=== PATIENT | female | born 1945 | race Caucasian/White ===

== ENCOUNTER 2023-06-02 12:40 | Observation (INO) | payer MEDICARE, SELFPAY ==
[2023-06-02 12:43] VITALS: BP 162/90; PULSE 87; RESP 18; TEMP 36.6; O2SAT 98; BMI 29.2
--- NOTE | 2023-06-02 13:09 | CT_ITS ---
The [address] [address] Patient Name: RIANA QUILES MRN: [id number] date: 1945 Sex: F Assigned Patient Location: ER Current Patient Location: Accession/Order Number: [id number] Exam Date: 06/02/2023 13:54 Report Date: 06/02/2023 14:24 At the request of: FOSTER HEART Procedure: CT abdomen pelvis w con EXAM: CT scan of the abdomen and pelvis using 99 mL of IV iodinated contrast. Dose reduction technique used: Automated exposure control and/or adjustment of the mA and/or kV according to patient size and/or use of iterative reconstruction technique. REASON FOR EXAM: abdominal applying pain/partial colectomy COMPARISON: None FINDINGS: Right hemicolectomy. Dilated loops of small bowel throughout the abdomen with an abrupt transition point in the lateral lower right abdomen with fecalization of this loop of small bowel. Mild associated mesenteric edema. Prominently decompressed distal small bowel. No pneumatosis intestinalis. Distal esophageal wall thickening. Tiny splenic hemangioma or cyst. Multilevel bilateral renal cysts including parapelvic renal cysts. Grade 1 retrolisthesis of L2 on L3 and L3-L4. No free fluid in the abdomen or pelvis. No free intraperitoneal air. No hydronephrosis or obstructing renal or ureteral calculi. Liver, pancreas, spleen, bilateral kidneys, and bilateral adrenal glands are otherwise unremarkable. No lymphadenopathy in the abdomen or pelvis. Remainder unremarkable. CT/CT abdomen pelvis w con IMPRESSION: 1. Dilated loops of small bowel with pattern that likely represents a mechanical obstruction with transition point in the right lateral abdomen. 2. Esophageal wall thickening likely represent esophagitis. Electronically authenticated by: KOREY GAMEZ Date: 06/02/2023 14:24
--- NOTE | 2023-06-02 13:11 | ED.ABDPAIN1 ---
HPI - Abdominal Pain General Chief Complaint: Abdominal Pain Stated Complaint: R SIDE PAIN/NAUSEA Time Seen by Provider: 06/02/23 13:05 Source: patient Mode of arrival: walk-in History of Present Illness HPI narrative: patient has diffuse abdominal pain but mostly localized on the right side and abdomen. She has an extensive midline incision close consistent with a partial colectomy from colon cancer over thirty years ago. She states that she had a colonoscopy recently and it was normal. She's not had a bowel movement for a couple days. She is on new meds for Parkinson's disease. Related Data Home Medications Medication Instructions Recorded Confirmed carbidopa 25 mg-levodopa 100 mg tab 06/02/23 tablet ferrous sulfate 325 mg (65 mg mg 06/02/23 iron) tablet hydrochlorothiazide 12.5 mg tablet mg 06/02/23 losartan 50 mg tablet mg 06/02/23 Allergies Allergy/AdvReac Type Severity Reaction Status Date / Time No Known Drug Allergies Allergy Verified 06/02/23 12:51 Exam Narrative Exam Narrative: patient very pleasant awake oriented ?3 appears moderately uncomfortable but is moving about easily. In a supine position belly slightly distended. There is no peritoneal findings but definitely increased tympany to percussion and very high-pitched bowel sounds on auscultation area and mild tenderness in the right upper quadrant. Large midline incision is noted with no obvious herniation. Cardiovascular examination is normal lungs are clear and heart sounds are regular. Skin and integument is normal with no evidence of pallor or hypoperfusion. Neurological examination she is awake alert oriented ?3 and a good historian. Constitutional Vital Signs, click to edit/add: Last Vital Signs Temp 98 F 06/02/23 12:43 Pulse 87 06/02/23 12:43 Resp 18 06/02/23 12:43 BP 162/90 H 06/02/23 12:43 Pulse Ox 98 06/02/23 12:43 O2 Del Method Room Air 06/02/23 12:43 Course Vital Signs Vital signs: Vital Signs Temperature 98 F 06/02/23 12:43 Pulse Rate 87 06/02/23 12:43 Respiratory Rate 18 06/02/23 12:43 Blood Pressure 162/90 H 06/02/23 12:43 Pulse Oximetry 98 06/02/23 12:43 Oxygen Delivery Method Room Air 06/02/23 12:43 Temperature 98 F 06/02/23 12:43 Pulse Rate 87 06/02/23 12:43 Respiratory Rate 18 06/02/23 12:43 Blood Pressure 162/90 H 06/02/23 12:43 Pulse Oximetry 98 06/02/23 12:43 Oxygen Delivery Method Room Air 06/02/23 12:43 MDM - Abdominal Pain MDM Narrative Medical decision making narrative: patient's CT scan is consistent with a mechanical obstruction. The case was discussed in detail with on-call surgeon Dr. Vasquez. Case also discussed with our hospitalist. Will be admitted. Dr. Bush's request NG tube Lab Data Labs: Lab Results 06/02/23 Range/Units 13:13 WBC 11.5 H (4.0-11.0) 10^3/uL RBC 4.49 (4.20-5.40) 10^6/uL Hgb 11.8 L (12.0-16.0) g/dL Hct 37.4 (36.0-48.0) % MCV 83.3 (81.0-99.0) fL MCH 26.3 L (26.7-34.0) pg MCHC 31.6 (29.9-35.2) g/dL RDW 12.9 (11.0-15.0) % Plt Count 247 (150-450) 10^3/uL MPV 9.5 (9.5-13.5) fL Neut % (Auto) 85.5 H (43.0-75.0) % Lymph % (Auto) 9.4 L (20.5-60.0) % [place] % (Auto) 4.5 (1.7-12.0) % Eos % (Auto) 0.2 L (0.9-7.0) % Baso % (Auto) 0.1 L (0.2-2.0) % Neut # (Auto) 9.8 H (1.4-6.5) 10^3/uL Lymph # (Auto) 1.1 L (1.2-3.8) 10^3/uL [place] # (Auto) 0.5 (0.3-0.8) 10^3/uL Eos # (Auto) 0.0 (0.0-0.7) 10^3/uL Baso # (Auto) 0.0 (0.0-0.1) 10^3/uL Abs Immat Gran (auto) 0.04 H (0.00-0.03) 10^3/uL Imm/Tot Granulo (auto) 0.3 (0.0-0.5) % Sodium 140 (136-145) mmol/L Potassium 3.4 L (3.5-5.1) mmol/L Chloride 99 (98-107) mmol/L Carbon Dioxide 28.6 (21.0-32.0) mmol/L Anion Gap 15.8 BUN 25.0 H (7.0-18.0) mg/dL Creatinine 1.13 H (0.55-1.02) mg/dL Est GFR ( Amer) 57 L (>=60) Est GFR (Non-Af Amer) 47 L (>=60) BUN/Creatinine Ratio 22.1 Glucose 124 H (74-106) mg/dL Lactate 1.1 (0.4-2.0) mmol/L Calcium 9.6 (8.5-10.1) mg/dL Total Bilirubin 0.8 (0.2-1.0) mg/dL AST 12 L (15-37) U/L ALT 14 (14-59) U/L Alkaline Phosphatase 90 (46-116) U/L Total Protein 7.9 (6.4-8.2) g/dL Albumin 3.5 (3.4-5.0) g/dL Globulin 4.4 g/dL Albumin/Globulin Ratio 0.8 Discharge Plan Discharge Chief Complaint: Abdominal Pain Clinical Impression: Bowel obstruction Patient Disposition: Admitted as Observation Time of Disposition Decision: 14:41 Prescriptions / Home Meds: No Action losartan 50 mg tablet ferrous sulfate 325 mg (65 mg iron) tablet carbidopa-levodopa 25-100 mg tablet hydrochlorothiazide 12.5 mg tablet Referrals: Rosita Schaffer NP [Primary Care Provider] - 1 week
[2023-06-02 13:26] LABS: Basophils Percent Auto 0.1 % (0.2-2.0); Eosinophils Percent Auto 0.2 % (0.9-7.0); Hematocrit 37.4 % (36.0-48.0); Hemoglobin 11.8 g/dL (12.0-16.0); Immature Granulocytes Abs Auto 0.04 10^3/uL (0.00-0.03); Immature Granulocytes Pct Auto 0.3 % (0.0-0.5); Lymphocytes Absolute Auto 1.1 10^3/uL (1.2-3.8); Lymphocytes Percent Auto 9.4 % (20.5-60.0); Mean Corpuscular HGB Conc 31.6 g/dL (29.9-35.2); Mean Corpuscular Hemoglobin 26.3 pg (26.7-34.0); Mean Corpuscular Volume 83.3 fL (81.0-99.0); Mean Platelet Volume 9.5 fL (9.5-13.5); Monocytes Absolute Auto 0.5 10^3/uL (0.3-0.8); Monocytes Percent Auto 4.5 % (1.7-12.0); Neutrophils Absolute Auto 9.8 10^3/uL (1.4-6.5); Neutrophils Percent Auto 85.5 % (43.0-75.0); Platelet Count 247 10^3/uL (150-450); Red Blood Count 4.49 10^6/uL (4.20-5.40); Red Cell Distribution Width 12.9 % (11.0-15.0); White Blood Count 11.5 10^3/uL (4.0-11.0)
[2023-06-02 13:43] LABS: Alanine Aminotransferase 14 U/L (14-59); Albumin Globulin Ratio 0.8; Albumin Level 3.5 g/dL (3.4-5.0); Alkaline Phosphatase 90 U/L (46-116); Anion Gap 15.8; Aspartate Amino Transferase 12 U/L (15-37); BUN Creatinine Ratio 22.1; Bilirubin Total 0.8 mg/dL (0.2-1.0); Calcium 9.6 mg/dL (8.5-10.1); Carbon Dioxide 28.6 mmol/L (21.0-32.0); Chloride 99 mmol/L (98-107); Estimated GFR (African America 57 (>=60); Estimated GFR (Non-African Ame 47 (>=60); Globulin 4.4 g/dL; Glucose 124 mg/dL (74-106); Potassium 3.4 mmol/L (3.5-5.1); Sodium 140 mmol/L (136-145); Total Protein 7.9 g/dL (6.4-8.2)
[2023-06-02 13:50] LABS: Lactate/Lactic Acid 1.1 mmol/L (0.4-2.0)
[2023-06-02 14:40] LABS: Bilirubin Urine SMALL (NEGATIVE); Blood Urine NEGATIVE (NEGATIVE); Clarity Urine CLEAR (CLEAR); Color Urine YELLOW (YELLOW); Glucose Urine UA NEGATIVE (NEGATIVE); Ketones Urine 40 mg/dL (NEGATIVE); Leukocyte Esterase Urine NEGATIVE (NEGATIVE); Nitrite Urine NEGATIVE (NEGATIVE); Protein Urine TRACE mg/dL (NEG/TRACE); Specific Gravity Urine 1.025 (1.005-1.025)
[2023-06-02 14:48] LABS: Urine Microscopic Indicated NO
--- NOTE | 2023-06-02 15:20 | XR_ITS ---
The [address] [address] Patient Name: RIANA QUILES MRN: [id number] date: 1945 Sex: F Assigned Patient Location: ER Current Patient Location: [place] Accession/Order Number: [id number] Exam Date: 06/02/2023 15:22 Report Date: 06/02/2023 15:50 At the request of: FOSTER HEART Procedure: XR abdomen 1V EXAM: XR abdomen 1V HISTORY: NG tube placement. COMPARISON: CT abdomen and pelvis 06/02/2023. TECHNIQUE: One view was performed. FINDINGS: There is an NG tube with the tip in the body of the stomach. The side-port is just above the gastroesophageal junction. There are several mildly dilated small bowel loops as described on the CT report. There is some residual contrast material within the renal collecting systems and bladder. There are mild to moderate degenerative changes of the lumbar spine. XR/XR abdomen 1V IMPRESSION: 1. NG tube with the tip in the body of the stomach and side port above the gastroesophageal junction. Recommend distal advancement by approximately 2 to 3 cm. 2. Dilated small bowel loops as described on the concurrent CT report. Electronically authenticated by: CARMEL BURNS Date: 06/02/2023 15:50
--- NOTE | 2023-06-02 16:59 | CM.NOTE ---
Call received from ZABRINA Eisenberg on med-surg, pt wanting to sign out AMA. Talked with pt regarding her decision to sign out AMA. Pt has a sister(Merry) at home with Parkinson's that is unable to care for herself. Pt states she contacted Adult Protective Services and they were unable to assist her. Pt also called her other sister that has refused to assist her. Pt would like to get Merry placed in a half-way until she can get herself well. Talked with Katia at [facility], no beds available. Called [facility] and they would be able to take her sister in respite care for an out of pocket expense. Pt is willing to pay out of pocket for the stay. They would not be able to take her tonight d/t need of her medical records released from physician's office. Discussed with pt about having the police go out to her house for a well check for Merry and then she could take care of everything else by telephone in AM. Pt states Merry can not be alone all night. I have to leave to care for her. Discussed with pt about her need of medical attention and caring for herself so that she will be there to care for her sister. Pt states I can go home tonight to stay with her, get her into half-way in the morning. Ill come back to the ER when I get her taken care of. Pt given Sary's number at [facility] and steps she need to complete in AM to get pt into the [facility]. All information written down for patient and also given Case Management contact number if further assistance needed. Discussed with pt risks of leaving AMA with her condition. Pt verbalizes understanding. Dr. Goff and Sary Loveire also aware of situation and pt continues to insist on leaving AMA.
--- NOTE | 2023-06-02 17:26 | PC.NURSE ---
Upon entering the patient room when she arrived the the ER, the patient asked if she was going to be staying overnight. Bindery Manager told the patient she was admitted and will be staying overnight. Patient told abstract writer that she could not stay over because her sister that she lives with and takes care of has Parkinson's.. 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 Patient stated that she wanted to leave. Bindery Manager had patient call a family member to see if she could help tonight. Patient states that the person she called refused to help. Bindery Manager let the patient know that she is very sick and should be here to get the care she needs. Write also made patient aware of potential worsening symptoms and even . Patient stated she understood and still wanted to leave to take care of her sister. Bindery Manager called Dr. Goff to make him aware of the situation. Dr. Goff stated that she is very sick and should stay here but we cannot keep her against her choice and to make her aware of the risks of signing out AMA. Tiik from Case Management came and talked to patient. Tiki made phone calls to different resources to try to find someone to take in her sister so the patient could stay but there was no one that could help tonight. Patient was given phone numbers of resources to call tomorrow morning. Bindery Manager again told patient the risks of leaving, symptoms worsening, and potential . Bindery Manager told patient to call 911 or come back to the ER if worsening. Patient voiced understanding. Bindery Manager signed the AMA form and abstract writer removed the NG tube and IV from the patient.
--- NOTE | 2023-06-03 11:11 | P.GSCN_ITS ---
History of Present Illness Consult details Consult date: 06/03/23 Reason for consult: abdominal pain Requesting physician: Jluis Long Narrative: I went to visit this patient and I was told by nursing that she checked out against medical advice. Review of Systems ROS Status of ROS 10 or more systems reviewed and unremark able except as noted in history and below Meds Home Medications and Allergies Home Medications Medication Instructions Recorded Confirmed Type carbidopa 25 mg-levodopa 100 mg 0.5 tab PO TID 06/02/23 06/02/23 History tablet carvedilol 12.5 mg tablet 12.5 mg PO BID 06/02/23 06/02/23 History ferrous sulfate 325 mg (65 mg 325 mg PO QDAY 06/02/23 06/02/23 History iron) tablet hydrochlorothiazide 12.5 mg tablet 12.5 mg PO DAILY 06/02/23 06/02/23 History losartan 50 mg tablet 50 mg PO QDAY 06/02/23 06/02/23 History Allergies Allergy/AdvReac Type Severity Reaction Status Date / Time No Known Drug Allergies Allergy Verified 06/02/23 12:51 Exam Constitutional Vital Signs, click to edit/add: Last Vital Signs Temp 98 F 06/02/23 12:43 Pulse 87 06/02/23 12:43 Resp 18 06/02/23 12:43 BP 162/90 H 06/02/23 12:43 Pulse Ox 98 06/02/23 12:43 O2 Del Method Room Air 06/02/23 12:43 Results Labs Labs: Abnormal lab results 06/02/23 06/02/23 Range/Units 13:13 14:18 WBC 11.5 H (4.0-11.0) 10^3/uL Hgb 11.8 L (12.0-16.0) g/dL MCH 26.3 L (26.7-34.0) pg Neut % (Auto) 85.5 H (43.0-75.0) % Lymph % (Auto) 9.4 L (20.5-60.0) % Eos % (Auto) 0.2 L (0.9-7.0) % Baso % (Auto) 0.1 L (0.2-2.0) % Neut # (Auto) 9.8 H (1.4-6.5) 10^3/uL Lymph # (Auto) 1.1 L (1.2-3.8) 10^3/uL Abs Immat Gran (auto) 0.04 H (0.00-0.03) 10^3/uL Potassium 3.4 L (3.5-5.1) mmol/L BUN 25.0 H (7.0-18.0) mg/dL Creatinine 1.13 H (0.55-1.02) mg/dL Est GFR ( Amer) 57 L (>=60) Est GFR (Non-Af Amer) 47 L (>=60) Glucose 124 H (74-106) mg/dL AST 12 L (15-37) U/L Urine Ketones 40 A (NEGATIVE) mg/dL Urine Bilirubin Small A (NEGATIVE) Diabetes panel 06/02/23 Range/Units 13:13 Sodium 140 (136-145) mmol/L Potassium 3.4 L (3.5-5.1) mmol/L Chloride 99 (98-107) mmol/L Carbon Dioxide 28.6 (21.0-32.0) mmol/L BUN 25.0 H (7.0-18.0) mg/dL Creatinine 1.13 H (0.55-1.02) mg/dL Glucose 124 H (74-106) mg/dL Calcium 9.6 (8.5-10.1) mg/dL AST 12 L (15-37) U/L ALT 14 (14-59) U/L Alkaline Phosphatase 90 (46-116) U/L Total Protein 7.9 (6.4-8.2) g/dL Albumin 3.5 (3.4-5.0) g/dL Calcium panel 06/02/23 Range/Units 13:13 Calcium 9.6 (8.5-10.1) mg/dL Albumin 3.5 (3.4-5.0) g/dL Pituitary panel 06/02/23 Range/Units 13:13 Sodium 140 (136-145) mmol/L Potassium 3.4 L (3.5-5.1) mmol/L Chloride 99 (98-107) mmol/L Carbon Dioxide 28.6 (21.0-32.0) mmol/L BUN 25.0 H (7.0-18.0) mg/dL Creatinine 1.13 H (0.55-1.02) mg/dL Glucose 124 H (74-106) mg/dL Calcium 9.6 (8.5-10.1) mg/dL Adrenal panel 06/02/23 Range/Units 13:13 Sodium 140 (136-145) mmol/L Potassium 3.4 L (3.5-5.1) mmol/L Chloride 99 (98-107) mmol/L Carbon Dioxide 28.6 (21.0-32.0) mmol/L BUN 25.0 H (7.0-18.0) mg/dL Creatinine 1.13 H (0.55-1.02) mg/dL Glucose 124 H (74-106) mg/dL Calcium 9.6 (8.5-10.1) mg/dL Total Bilirubin 0.8 (0.2-1.0) mg/dL AST 12 L (15-37) U/L ALT 14 (14-59) U/L Alkaline Phosphatase 90 (46-116) U/L Total Protein 7.9 (6.4-8.2) g/dL Albumin 3.5 (3.4-5.0) g/dL All other labs normal. Imaging Abdominal x-ray: report reviewed and image reviewed Abdomen CT scan report/results: report reviewed and image reviewed CT scan - pelvis: report reviewed and image reviewed Assessment and Plan Assessment and Plan (1) Bowel obstruction:
== END 2023-06-02 17:01 | disposition left against medical advice (07) ==
LOC: ER 14:41 → MS 16:28 → ER 16:29 → MS 17:07
PROVIDERS: Admitting Provider Internal Medicine; Emergency Provider Emergency Medicine Emergency Medical Services; PCP Nurse Practitioner; Visit Provider Internal Medicine
DX: K56.600 Partial intestinal obstruction, unspecified as to cause (principal); R10.31 Right lower quadrant pain; E87.6 Hypokalemia; I10 Essential (primary) hypertension; J44.9 Chronic obstructive pulmonary disease, unspecified; G20.A1 Parkinson's disease without dyskinesia, without mention of fluctuations; Z85.038 Personal history of other malignant neoplasm of large intestine; Z53.29 Procedure and treatment not carried out because of patient's decision for other reasons; Z90.49 Acquired absence of other specified parts of digestive tract; Z79.899 Other long term (current) drug therapy
CPT/HCPCS: 36415; 74018; 74177; 80053; 81003; 83605; 85025; 94761; 99285; G0378; Q9967

== ENCOUNTER 2023-06-03 14:41 | Observation (INO) | payer MEDICARE, SELFPAY ==
[2023-06-03] VITALS (7 sets, daily range): BP systolic 110–133; BP diastolic 70–78; PULSE 74–80; RESP 16–18; TEMP 36.4–37; O2SAT 94–99; BMI 29.2
--- OUTSIDE RECORDS SUMMARY | 2023-06-03 14:53 | XMS_ITS | CCD ---
Author Name Unknown Address [address] [place] [address] Organization [facility] Care Team Providers [employer] Operator Name Role Phone Jonathon HINDS, Sary Pérez Primary Care Provider ROSITA SCHAFFER Primary Care Physician [phone] AICHHOLZ, VALVE AND REGULATOR REPAIRER ROSITA Consulting Unavailable AICHHOLZ, VALVE AND REGULATOR REPAIRER ROSITA Primary Care Unavailable AICHHOLZ, VALVE AND REGULATOR REPAIRER ROSITA Attending Unavailable AICHHOLZ, VALVE AND REGULATOR REPAIRER ROSITA Admitting Unavailable DR BIRGIT HAMILTON V Consulting Unavailable AICHHOLZ, VALVE AND REGULATOR REPAIRER ROSITA Primary Care Unavailable AICHHOLZ, VALVE AND REGULATOR REPAIRER ROSITA Attending Unavailable AICHHOLZ, VALVE AND REGULATOR REPAIRER ROSITA Admitting Unavailable AICHHOLZ, VALVE AND REGULATOR REPAIRER ROSITA Consulting Unavailable NILL, DR JAVED Consulting Unavailable AICHHOLZ, VALVE AND REGULATOR REPAIRER ROSITA Primary Care Unavailable NILL, DR JAVED Attending Unavailable DR TELLO CARMONA Admitting Unavailable AICHHOLZ, VALVE AND REGULATOR REPAIRER ROSITA Consulting Unavailable JR, DR POWER Primary Care Unavailable AICHHOLZ, VALVE AND REGULATOR REPAIRER ROSITA Attending Unavailable AICHHOLZ, VALVE AND REGULATOR REPAIRER ROSITA Admitting Unavailable DR CARMEL GOVEA Consulting Unavailable AICHHOLZ, VALVE AND REGULATOR REPAIRER ROSITA Consulting Unavailable AICHHOLZ, VALVE AND REGULATOR REPAIRER ROSITA Primary Care Unavailable AICHHOLZ, VALVE AND REGULATOR REPAIRER ROSITA Attending Unavailable AICHHOLZ, VALVE AND REGULATOR REPAIRER ROSITA Admitting Unavailable AICHHOLZ, VALVE AND REGULATOR REPAIRER ROSITA Consulting Unavailable AICHHOLZ, VALVE AND REGULATOR REPAIRER ROSITA Primary Care Unavailable AICHHOLZ, VALVE AND REGULATOR REPAIRER ROSITA Attending Unavailable AICHHOLZ, VALVE AND REGULATOR REPAIRER ROSITA Admitting Unavailable DR BIRGIT HAMILTON V Consulting Unavailable AICHHOLZ, VALVE AND REGULATOR REPAIRER ROSITA Primary Care Unavailable AICHHOLZ, VALVE AND REGULATOR REPAIRER ROSITA Attending Unavailable AICHHOLZ, VALVE AND REGULATOR REPAIRER ROSITA Admitting Unavailable AICHHOLZ, VALVE AND REGULATOR REPAIRER ROSITA Consulting Unavailable DR TELLO CARMONA Consulting Unavailable AICHHOLZ, VALVE AND REGULATOR REPAIRER ROSITA Primary Care Unavailable NILJa, DR JAVED Attending Unavailable NILL, DR JAVED Admitting Unavailable SUAD DURAN Consulting Unavailable JRSCIELO Consulting Unavailable AICHHOLZ, VALVE AND REGULATOR REPAIRER ROSITA Consulting Unavailable AICHHOLZ, VALVE AND REGULATOR REPAIRER ROSITA Primary Care Unavailable AICHHOLZ, VALVE AND REGULATOR REPAIRER ROSITA Attending Unavailable AICHHOLZ, VALVE AND REGULATOR REPAIRER ROSITA Admitting Unavailable ZIEBER, DR CARMEL Bee Consulting Unavailable HELEN, CIELO VALENTINE Consulting Unavailable [facility] [place] Primary Care Unavailable CIELO CERVANTES Attending Unavailable HELEN, CIELO VALENTINE Admitting Unavailable WEST, DR BIRGIT Aaron Consulting Unavailable AICHHOLZ, VALVE AND REGULATOR REPAIRER ROSITA Primary Care Unavailable AICHHOLZ, VALVE AND REGULATOR REPAIRER ROSITA Attending Unavailable AICHHOLZ, VALVE AND REGULATOR REPAIRER ROSITA Admitting Unavailable AICHHOLZ, VALVE AND REGULATOR REPAIRER ROSITA Consulting Unavailable AICHHOLZ, VALVE AND REGULATOR REPAIRER ROSITA Consulting Unavailable AICHHOLZ, VALVE AND REGULATOR REPAIRER ROSITA Primary Care Unavailable AICHHOLZ, VALVE AND REGULATOR REPAIRER ROSITA Attending Unavailable AICHHOLZ, VALVE AND REGULATOR REPAIRER ROSITA Admitting Unavailable ZIEBER, DR CARMEL Bee Consulting Unavailable WEST, DR BIRGIT Aaron Consulting Unavailable AICHHOLZ, VALVE AND REGULATOR REPAIRER ROSITA Primary Care Unavailable AICHHOLZ, VALVE AND REGULATOR REPAIRER ROSITA Attending Unavailable AICHHOLZ, VALVE AND REGULATOR REPAIRER ROSITA Admitting Unavailable AICHHOLZ, VALVE AND REGULATOR REPAIRER ROSITA Consulting Unavailable NILL, Tello Bee Attending Unavailable AICHHOLZ, ROSITA ROSITA J Referring Unavailabl e DANNY, Tello Bee Attending Unavailable NILL, Tello Bee Attending Unavailable NILL, Tello Bee Attending Unavailable Allergies Allergy Classification Reported Allergen(s) Allergy Type Date of Onset Reaction(s) Facility (1 source) No Known Medication Allergies; Translations: [No Known Medication Allergies] Propensity to adverse reactions (disorder) [facility] Repository Medications Current Medications Medication Drug Class(es) Dates Sig (Normalized) Sig (Original) carvedilol 12.5 mg oral tablet (4 sources) alpha-Adrenergic Ricki, beta-Adrenergic Ricki Start: 10-22-2014 take 1 tablet by mouth twice daily carvedilol 12.5 mg Tab 12.5 mg = 1 tab(s), Oral, BID, Refills(s) 0 Start Date: 01/21/22 Status: Ordered Comment on above: Take 1 tablet by amanda th twice daily with meals. ferrous sulfate 325 mg delayed release oral tablet (3 sources) Start: 01-21-2022 take 1 tablet by mouth once daily ferrous sulfate 325 mg oral enteric coated tablet 325 mg = 1 tab(s), Oral, Daily, Refills(s) 0 Start Date: 01/21/22 Status: Ordered Start: 01-08-2022 take 1 tablet by amanda th once daily ferrous sulfate 325 mg (65 mg iron) tablet TAKE 1 TABLET BY MOUTH ONCE A DAY *MAY TURN STOOLS BLACK* 0 01/08/2022 Active Comment on above: TAKE 1 TABLET BY AMANDA TH ONCE A DAY *MAY TURN STOOLS BLACK* hydroCHLOROthiazide 12.5 mg oral tablet (4 sources) Thiazide Diuretic Start: take 1 tablet by mouth once daily hydrochlorothiazide 12.5 mg Tab 12.5 mg = 1 tab(s), Oral, Daily, Refills(s) 0 Start Date: 01/21/22 Status: Ordered Start: 10-22-2014 take 1 tablet by amanda th once daily hydrochlorothiazide (HYDRODIURIL, ESIDRIX) 25 mg tablet Take 1 tablet by mouth once daily. 90 tablet 3 10/22/2014 Active Comment on above: Take 1 tablet by amanda th once daily. losartan potassium 50 mg oral tablet (4 sources) Angiotensin 2 Receptor Ricki Start: 01-21-2022 take 1 tablet by mouth once daily losartan 50 mg Tab 50 mg = 1 tab(s), Oral, Daily, Refills(s) 0 Start Date: 01/21/22 Status: Ordered Comment on above: Take 50 mg by mouth once daily. Completed/Discontinued Medications Medication Drug Class(es) Dates Sig (Normalized) Sig (Original) aspirin 81 mg delayed release oral tablet (2 sources) Platelet Aggregation Inhibitor, Nonsteroidal Anti-inflammatory Drug take 1 tablet by mouth once daily aspirin, enteric coated 81 mg EC tablet Take 81 mg by mouth once daily. 0 Active Comment on above: Take 81 mg by mouth once daily. lisinopril 20 mg oral tablet (2 sources) Angiotensin Converting Enzyme Inhibitor Start: 10-22-2014 take 1 tablet by mouth once daily lisinopril (ZESTRIL, PRINIVIL) 20 mg tablet Take 1 tablet by mouth once daily. 90 tablet 3 10/22/2014 Active Comment on above: Take 1 tablet by amanda th once daily. Problems Active Problems Problem Classification Problem Date Documented Date Episodic/Chronic Cancer of colon (1 source) Malignant tumor of colon; Translations: [Malignant neoplasm of colon, unspecified] Chronic Cancer of colon (6 sources) History of malignant neoplasm of colon; Translations: [Personal history of other malignant neoplasm of large intestine] Onset: 02-16-2022 Episodic Deficiency and other anemia (3 sources) Iron deficiency anemia; Translations: [Iron deficiency anemia, unspecified] Onset: 02-16-2022 Episodic Deficiency and other anemia (2 sources) Anemia 01-21-2022 Episodic Deficiency and other anemia (4 sources) Iron deficiency anemia, unspecified; Translations: [IRON DEFICIENCY ANEMIA UNSPECIFIED] Onset: 03-10-2022 Episodic Esophageal disorders (4 sources) Gastroesophageal reflux disease without esophagitis; Translations: [Gastro-esophageal reflux disease without esophagitis] Onset: 02-16-2022 Chronic Essential hypertension (7 sources) Hypertensive disorder; Translations: [Essential (primary) hypertension] Onset: 05-25-2021 01-21-2022 Chronic Gastritis and duodenitis (1 source) Unspecified chronic gastritis without bleeding; Translations: [UNS CHRONIC GASTRITIS W/O BLEEDING] Onset: 03-24-2022 Chronic Neoplasms of unspecified nature or uncertain behavior (1 source) Monoclonal gammopathy of uncertain significance; Translations: [Monoclonal gammopathy] Chronic Other acquired deformities (2 sources) Lumbar spondylolisthesis 01-21-2022 Episodic Other and unspecified benign neoplasm (1 source) Polyp of colon; Translations: [POLYP OF COLON] Onset: 03-24-2022 Episodic Other nutritional; endocrine; and metabolic disorders (2 sources) Body mass index 30+ - obesity 02-16-2022 Chronic Other nutritional; endocrine; and metabolic disorders (2 sources) Obesity 01-21-2022 Chronic Other screening for suspected conditions (not mental disorders or infectious disease) (17 sources) Abnormal finding on evaluation procedure; Translations: [Abnormal results of function studies of other organs and systems] Onset: 12-02-2021 Episodic Residual codes; unclassified (2 sources) Edema 01-21-2022 Episodic Spondylosis; intervertebral disc disorders; other back problems (6 sources) Degeneration of lumbar intervertebral disc; Translations: [Other intervertebral disc degeneration, lumbar region] Onset: 11-04-2021 01-21-2022 Chronic Thyroid disorders (6 sources) Thyroid nodule; Translations: [Nontoxic single thyroid nodule] Onset: 02-02-2022 01-21-2022 Chronic Unclassified (1 source) CONTACT W/AND (SUSP) EXPOS COVID-19; Translations: [CONTACT W/AND (SUSP) EXPOS COVID-19] Onset: 03-10-2022 Unclassified (3 sources) LOW BACK PAIN, UNSPECIFIED; Translations: [LOW BACK PAIN, UNSPECIFIED] Onset: 12-11-2021 Past or Other Problems Problem Classification Problem Date Documented Date Episodic/Chronic Deficiency and other anemia (4 sources) Anemia, unspecified; Translations: [ANEMIA UNSPECIFIED] Onset: 06-01-2021 Episodic Diabetes mellitus without complication (1 source) Hyperglycemia, unspecified; Translations: [HYPERGLYCEMIA UNSPECIFIED] Onset: 06-07-2021 Episodic Immunizations and screening for infectious disease (4 sources) Encounter for immunization; Translations: [ENCOUNTER FOR IMMUNIZATION] Onset: 04-14-2021 Episodic Malaise and fatigue (4 sources) Other fatigue; Translations: [OTHER FATIGUE] Onset: 11-11-2021 Episodic Nonmalignant breast conditions (1 source) Unspecified lump in the right breast, upper outer quadrant; Translations: [UNS LUMP IN RT BREAST UP OUTR QUAD] Onset: 12-16-2021 Episodic Other acquired deformities (1 source) Spondylolisthesis, lumbar region; Translations: [SPONDYLOLISTHESIS LUMBAR REGION] Onset: 11-11-2021 Episodic Other connective tissue disease (1 source) Other symptoms and signs involving the musculoskeletal system; Translations: [OTH SX AND SYMP INVOLV MUSCULOSKELTAL] Onset: 11-11-2021 Episodic Other fractures (1 source) Collapsed vertebra, not elsewhere classified, lumbar region, initial encounter for fracture; Translations: [COLLAPSED VERT NEC LUMBAR INIT ENC] Onset: 12-11-2021 Episodic Spondylosis; intervertebral disc disorders; other back problems (1 source) Dorsalgia, unspecified; Translations: [DORSALGIA UNSPECIFIED] Onset: 05-28-2021 Episodic Unclassified (1 source) LOW BACK PAIN, UNSPECIFIED; Translations: [LOW BACK PAIN, UNSPECIFIED] Onset: 12-04-2021 Results Test Name Value Interpretation Reference Range Facility General Surgery Office/Clini c Noteon 04-19-2022 General Surgery Office/Clinic Note Chief Complaint EGD and colonoscopy follow up HPI Staff 21 day post operative follow up post EGD with gastric biopsy and colonoscopy with sigmoid polypectomy. History of Present Illness s/p EGD and colonoscopy, EGD with mild gastritis, negative for H pylori, fundic gland polyps; colonoscopy with small hyperplastic sigmoid polyp; patient doing well, no blood in stools. Review of Systems ROS - Provider Constitutional: no fever, no sweats, no weight loss. Eyes: no glasses, no blurred vision, no visual loss. ENMT: no dentures, no hoarseness, no swallowing difficulties, no hearing loss, no ear infection(s), no nose bleeds. Cardiovascular: normal blood pressure, no chest pain, regular heartbeat, no heart murmur. Respiratory: no shortness of breath, no cough, no asthma, no wheezing. Gastrointestinal: no nausea, no vomiting, no diarrhea, no constipation, no blood in stool, no change in bowel habits, no abdominal pain, no hepatitis. Genitourinary: no kidney stones, no urine infection, no dysuria. Musculoskeletal: no pain, no weakness. Skin: no changing moles, no rash, no skin lumps. Neurologic: no seizures, no epilepsy, no headache. Psychiatric: no emotional or psychiatric problem. Heme/Lymph: no bleeding problems, no anemia, no blood clots, no transfusions. Allergy/Immunologic: no swollen lymph nodes/glands, no IV drug abuse. Other: Additional ROS info: Except as noted in the above Review of Systems and in the History of Present Illness, all other systems have been reviewed and are negative or noncontributory. Assessment/Plan 1. Abnormal PET scan of colon (R94.8: Abnormal results of function studies of other organs and systems) no abnormality in colon other than small hyperplastic polyp in sigmoid; recommend f/u colonoscopy in 5 years due to h/o colon cancer; call sooner if problems/questions. 2. Personal history of colon cancer (Z85.038: Personal history of other malignant neoplasm of large intestine) see # 1 3. Iron deficiency anemia (D50.9: Iron deficiency anemia, unspecified) no etiology found; recommend f/u with family physician. Follow-up No qualifying data available Problem List/Past Medical History Ongoing Abnormal PET scan of colon Anemia BMI 31.0-31.9,adult DDD (degenerative disc disease), lumbar Edema GERD (gastroesophageal reflux disease) History of colon cancer HTN (hypertension) Iron deficiency anemia Obesity Personal history of colon cancer Spondylolisthesis of lumbar region Thyroid nodule Historical No qualifying data Procedure/Surgical History Colonoscopy (03/10/2022), EGD - Esophagogastroduodenoscopy (03/10/2022), Colonoscopy (03/10/2007), Biopsy of thyroid gland, Colonoscopy, Lumpectomy of left breast, Lumpectomy of left breast, Partial colectomy. Medications carvedilol 12.5 mg Tab, 12.5 mg= 1 tab(s), Oral, BID ferrous sulfate 325 mg oral enteric coated tablet, 325 mg= 1 tab(s), Oral, Daily hydrochlorothiazide 12.5 mg Tab, 12.5 mg= 1 tab(s), Oral, Daily losartan 50 mg Tab, 50 mg= 1 tab(s), Oral, Daily Allergies No Known Allergies No Known Medication Allergies Social History Alcohol - Denies Alcohol Use, 02/16/2022 Substance Abuse - Denies Substance Abuse, 02/16/2022 Tobacco Never (less than 100 in lifetime) Tobacco Use:. Never Smokeless Tobacco Use:., 02/16/2022 Family History Alzheimer's disease: Mother. Hypertension: Sister. Parkinson disease: Sister. Primary malignant neoplasm of lung: Father. Primary malignant neoplasm of prostate: Father. Normal [facility] Comment on above: Result Comment: Elec tronically Signed By: DANNY HINDS, Tello Bee\.br\Date and Time Signed: 04/19/22 16:49 EST Ambulatory Visit Summaryon 1 Ambulatory Visit Summary RIANA GARCIA :1945 Visit Date:03/31/2022 Ambulatory Visit Instructions Your Care Team Attending Physician - Tello CARMONA MD Primary Care Physician - ROSITA SCHAFFER CNP This Is Your Medications List carvedilol (carvedilol 12.5 mg Tab) ferrous sulfate (ferrous sulfate 325 mg oral enteric coated tablet) hydrochlorothiazide (hydrochlorothiazide 12.5 mg Tab) losartan (losartan 50 mg Tab) Procedures Performed Colonoscopy (03/10/2022), EGD - Esophagogastroduodenoscopy (03/10/2022), Colonoscopy (03/10/2007), Biopsy of thyroid gland, Colonoscopy, Lumpectomy of left breast, Lumpectomy of left breast, Partial colectomy. Medications What How Much When Instructions Unchanged carvedilol (carvedilol 12.5 mg Tab) 1 Tablets By Mouth 2 times a day Unchanged ferrous sulfate (ferrous sulfate 325 mg oral enteric coated tablet) 1 Tablets By Mouth Every day Unchanged hydrochlorothiazide (hydrochlorothiazide 12.5 mg Tab) 1 Tablets By Mouth Every day Unchanged losartan (losartan 50 mg Tab) 1 Tablets By Mouth Every day Allergies No Known Allergies No Known Medication Allergies Problems Ongoing - Any problem that you are currently receiving treatment for. Abnormal PET scan of colon Anemia BMI 31.0-31.9,adult DDD (degenerative disc disease), lumbar Edema GERD (gastroesophageal reflux disease) History of colon cancer HTN (hypertension) Iron deficiency anemia Obesity Personal history of colon cancer Spondylolisthesis of lumbar region Thyroid nodule Normal [facility] Reminderson 03-31-2022 Reminders - From: Yolette Cordero LPN To: N - Clinical; Sent: 03/31/2022 15:07:34 EDT Show up: 02/09/2032 07:00:00 EDT Subject: colonoscopy recall Due Date/Time: 03/10/2032 07:00:00 EDT Reminder/Recall Patient is due for screening colonoscopy 03/10/2032. Normal [facility] Outside Colonoscopyon 2021 Outside Colonoscopy [id number]#[id number]:127 Normal [facility] Pathology Noteon 03-12-2022 Pathology Note [id number]#[id number]:127 Normal [facility] Consultation Noteon 03-10-20 Consultation Note [id number]#[id number]:127 Normal [facility] Lab Reportson 03-08-2022 Lab Reports [id number]#[id number]:127 Normal [facility] Covid-19 PCR (CVDTB)on SARS-CoV-2 (COVID-19) RNA ROBBIN+probe Ql (Unsp spec) Not detected Normal NOT DETECTED [facility] Comment on above: Result Comment: This test is not yet approved or cleared by the [place] FDA. When there are no FDA-approved or cleared tests available, and other criteria are met, FDA can make tests available under an emergency access mechanism called an Emergency Use Authorization (EUA). The EUA for this test is supported by the Blacking Machine Operator of Health and Human Service's (HHS's) declaration that circumstances exist to justify the emergency use of in vitro diagnostics for the detection and/or diagnosis of the virus that causes COVID-19. This EUA will remain in effect (meaning this test can be used) for the duration of the COVID-19 declaration justifying emergency of IVDs, unless it is terminated or revoked by FDA (after which the test may no longer be used). When diagnostic testing is negative, the possibility of a false negative should be considered in the context of a patient's recent exposures and the presence of clinical signs and symptoms consistent with SARS-CoV-2. Performed By: #### [facility] #### [facility] [address] [place] [address] Dr. Darius Zepeda Physician Orderon 02-17-2022 Physician Order [id number]:127 Normal [facility] Ambulatory Visit Summaryon 0 02-16-2022 Ambulatory Visit Summary RIANA GARCIA :1945 Visit Date:02/16/2022 Ambulatory Visit Instructions Your Care Team Attending Physician - DANNY HINDS, Tello Bee Primary Care Physician - ROSITA SCHAFFER CNP This Is Your Medications List carvedilol (carvedilol 12.5 mg Tab) ferrous sulfate (ferrous sulfate 325 mg oral enteric coated tablet) hydrochlorothiazide (hydrochlorothiazide 12.5 mg Tab) losartan (losartan 50 mg Tab) Procedures Performed Colonoscopy (03/10/2007), Biopsy of thyroid gland, Colonoscopy, Lumpectomy of left breast, Lumpectomy of left breast, Partial colectomy. Discharge Vitals Heart Rate (Peripheral) 74 Respiratory Rate 16 Blood Pressure 122/86 Height 162.5 cm Height 162.5 cm Weight 83 kg Weight 83.0 kg BMI 31.43 Medications What How Much When Instructions Unchanged carvedilol (carvedilol 12.5 mg Tab) 1 Tablets By Mouth 2 times a day Unchanged ferrous sulfate (ferrous sulfate 325 mg oral enteric coated tablet) 1 Tablets By Mouth Every day Unchanged hydrochlorothiazide (hydrochlorothiazide 12.5 mg Tab) 1 Tablets By Mouth Every day Unchanged losartan (losartan 50 mg Tab) 1 Tablets By Mouth Every day Allergies No Known Allergies No Known Medication Allergies Problems Ongoing - Any problem that you are currently receiving treatment for. Abnormal PET scan of colon Anemia BMI 31.0-31.9,adult DDD (degenerative disc disease), lumbar Edema GERD (gastroesophageal reflux disease) History of colon cancer HTN (hypertension) Obesity Spondylolisthesis of lumbar region Thyroid nodule Normal [facility] US THYROID FN ASP BXon 02-12 US THYROID FN ASP BX Begin Addendum #1 COLLECTED DATE/TIME: 02/02/2022 12:58 EDT Final Diagnosis Report for [facility] [place] (A/B) LEFT THYROID SUPERIOR NODULE, ULTRASOUND-GUIDED FINE NEEDLE ASPIRATION: -ATYPIA OF UNDETERMINED SIGNIFICANCE. COMMENT: The specimen consists of a few groups of follicular cells with some cytological and architectural atypia, consistent with follicular lesion. A repeat aspiration after a period of observation may be helpful if clinically warranted. (C/D) LEFT THYROID INFERIOR NODULE, ULTRASOUND-GUIDED FINE NEEDLE ASPIRATION: -ATYPIA OF UNDETERMINED SIGNIFICANCE. COMMENT: The specimens consist of some colloid and occasional groups of follicular cells with architectural and cytological atypia. A repeat aspiration after a period of observation or molecular testing may be helpful if clinically warranted. Intradepartmental consultation has been obtained. 02/05/2022 faxed to Rosita Schaffer NP (). 02/09/2022 verified with Maris that report was present in the office (GERRY). Original Report EXAMINATION: US THYROID FN ASP BX HISTORY: Thyroid nodule COMPARISON: Ultrasound thyroid 01/08/2022 TECHNIQUE: After obtaining informed consent, ultrasound-guided fine needle aspiration was performed in the usual sterile manner. FINDINGS: IMAGING: Ultrasound. BIOPSY NEEDLE: 25-gauge; 3 separate passes within both nodules. LOCATION: Right lobe superior to 2.1 cm nodule. Right lobe inferior to 2.0 cm nodule. SPECIMEN TYPE: Cellular tissue. LOCAL ANESTHETIC: Buffered Xylocaine. COMPLICATIONS: None. LABORATORY: Prepared slide smears and washings for cell block evaluation. OTHER: Negative. PATHOLOGY: Pending. An addendum will be added when results are available. IMPRESSION: 1. Uneventful ultrasound guided fine needle aspiration (FNA). 2. Pathology results are pending. Normal [facility] CNOVSPon 02-03-2022 CNOVSP Visit (SP) Office (H [facility]) RIANA GARCIA ([id number]) 1945 F Date Time Provider Department 02/03/22 2:45 PM JOEY KRUGER During your visit today, we recorded the following information about you: Temperature Pulse Respiration Blood pressure 97.9 degrees 75/minute 16/minute 159/81 Weight Height 81.1 kg 1.64 m Joey Kruger MD 02/07/2022 12:04 AM Signed NAME: Riana Garcia CLINIC NO.: [id number] DATE OF SERVICE: February 03, 2022 Some elements in this clinic note that are critical to medical decision making have been carefully reviewed and included from a prior clinic note dated: January 25, 2022 Referring Provider: Rosita Schaffer CNP Additional Clinicians involved in Riana Garcia's care: Tello Carmona DIAGNOSIS: PET positive for: Uptake, IgM kappa light chain monoclonal gammopathy. ASSESSMENT: 76 year old woman with a history of colon cancer which she unfortunately has no real recollection or available history from the current accessible records. Work-up of back pain revealed some concerning vertebral lesions that then led to a PET scan demonstrating a long segment of hypermetabolism in the sigmoid colon. She is scheduled to undergo colonoscopy which I fully agree with but also will need records from [facility] with respect to both pathology and surgery. She is also scheduled to have a thyroid nodule biopsied. 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 PLAN: 1. Recommend cardiac workup for fatigue and dyspnea with mild exertion - Defer to PCP 2. Keep appointment with Dr. Carmona for Colonoscopy 3. Labs repeated in 4 weeks myeloma labs and [id number] 4. RTC in 6 weeks - HPI: CASE HISTORY: 12/30/2021 PET/CT-Long segment of hypermetabolism of the sigmoid colon 12/16/2021 - Mammography BiRads 2 12/02/2021 MRI - difficulty walking and getting up from a chair.changes in bone suggestive of age related vs. Metastatic disease 11/04/2021 MRI L-spine without contrast: Multiple areas of rounded signal abnormality vertebral bodies could represent age-related changes but metastatic disease should be considered. Contrasted MRI recommended. Pre-2006 had colon cancer - partial R??colectomy and no need for chemotherapy Updated Visit, February 03, 2022: Riana 76 and returns for follow upunable to find any records of her colon cancer and she explains that it was perhaps as an inpatient in between 1990 and 1998. PET shows no indication of bony metastatic disease. Got thyroid biopsied yesterday. Gets really exhausted making breakfast and taking care of her sister. Suggestive of cardiac etiology. Almost can't make it up the stairs to lay down - get breathless. Initial Visit, January 25, 2022: Riana Garcia presents today Hematology and Oncology evaluation. She is a 76 year old female who has a history of colon cancer in 2006 but unfortunately does not know any of the details. In November 2021 she had an MRI of the L-spine for back pain and had signal changes suggestive of malignancy. She therefore had a contrasted MRI and subsequently had a PET/CT demonstrating a long segment of hypermetabolism in the sigmoid colon in addition to serologies notable for an IgM kappa light chain monoclonal gammopathy. She is scheduled to see Dr. Carmona for colonoscopy very soon. We will repeat laboratories today. - REVIEW OF SYSTEMS Per HPI and otherwise negative by full review of organ systems. - ECOG PERFORMANCE STATUS: 1 PHYSICAL EXAMINATION: Vitals: BP 159/81 Pulse 75 Temp (Src) 97.9 (Temporal) Resp 16 Ht 5' 4.567 (1.64m) Wt 178 lb 12.8 oz (81.1kg) SpO2 99% BMI 30.15 kg/(m2). Body surface area is 1.92 meters squared. Exam limited to gross visualization where appropriate due to COVID-19. Gen.: This is an age-appropriate patient in no acute distress. Head: Appears atraumatic with no visible lesions. Eyes: Pupils equally round and reactive to light, extraocular muscles are intact. Neck: Supple. Mouth: Masked. Respiratory: Appears to be respiring comfortably. Neurologic: Nonfocal to gross visualization. Alert and oriented ?3. Psychiatric: No evidence of inappropriate anxiety or depression. Skin: Visible areas of skin without rash, lesions, wounds or petechiae. - ALLERGIES: ALLERGIES No Known Allergies MEDICATIONS: ferrous sulfate 325 mg (65 mg iron) tablet TAKE 1 TABLET BY MOUTH ONCE A DAY *MAY TURN ST (more content not included)... Normal [facility] B2 MICROGLOBULIN Bon 022 Qpmv-0-Yxjxqypllyk in [Mass/Vol] 2.9 ug/mL <3.1 mg/L [facility] B2 Microglob SerPl-mCncon Lslk-3-Oxuvvyzxbpn in [Mass/Vol] 2.9 ug/mL Normal <3.1 [facility] Comment on above: Order Comment: Ludy phillips Type: BLOOD SPECIMEN Ordering Facility: [facility] Address: [address] [place] [address] Result Comment: Beta -2 Microglobulin test is performed using the [employer] immunoturbidimetric method. Results obtained with different methods or kits cannot be used interchangeably. Performed By: #### 3 084-1, 12493-2, 2532-0, 2777-1 #### [facility] CLIA [id number] [address] [place], [place] [id number] CBC W Auto Differential pane l (Bld)on 01-25-2022 Basophils (Bld) [#/Vol] 0.04 10*3/uL Normal <0.11 [facility] Comment on above: Order Comment: Ludy phillips Type: BLOOD SPECIMEN Ordering Facility: [facility] Address: [address] [place] [address] Performed By: #### 5 7021-8 #### [facility] CLIA [id number] [address] [place] [address] 11701 Basophils/100 WBC (Bld) 0.5 % Normal [facility] Comment on above: Order Comment: Ludy phillips Type: BLOOD SPECIMEN Ordering Facility: [facility] Address: [address] [place] [address] Performed By: #### 5 7021-8 #### [facility] CLIA [id number] [address] [place] [address] 80756 Differential cell count method Nom (Bld) Auto Normal [facility] Comment on above: Order Comment: Speci men Type: BLOOD SPECIMEN Ordering Facility: [facility] Address: [address] [place], [place] [address] Performed By: #### 5 7021-8 #### [facility] CLIA [id number] [address] [place] [address] 79088 Eosinophils (Bld) [#/Vol] 0.16 10*3/uL Normal <0.46 [facility] Comment on above: Order Comment: Speci men Type: BLOOD SPECIMEN Ordering Facility: [facility] Address: [address] [place], [place] [address] Performed By: #### 5 7021-8 #### [facility] CLIA [id number] [address] [place] [address] 80615 Eosinophils/100 WBC (Bld) 1.9 % Normal [facility] Comment on above: Order Comment: Speci men Type: BLOOD SPECIMEN Ordering Facility: [facility] Address: [address] [place] [address] Performed By: #### 5 7021-8 #### [facility] CLIA [id number] [address] [place] [address] 41647 Erythrocyte distribution width (RBC) [Ratio] 13.8 % Normal 11.5-15.0 [facility] Comment on above: Order Comment: Speci men Type: BLOOD SPECIMEN Ordering Facility: [facility] Address: [address] [place], [place] [address] Performed By: #### 5 7021-8 #### [facility] CLIA [id number] [address] [place] [address] 40879 Hematocrit (Bld) [Volume fraction] 36.7 % Normal 36.0-46.0 [facility] Comment on above: Order Comment: Speci men Type: BLOOD SPECIMEN Ordering Facility: [facility] Address: [address] [place], [place] [address] Performed By: #### 5 7021-8 #### [facility] CLIA [id number] [address] [place] [address] Hemoglobin (Bld) [Mass/Vol] 11.5 g/dL Normal 11.5-15.5 [facility] Comment on above: Order Comment: Speci men Type: BLOOD SPECIMEN Ordering Facility: [facility] Address: [address] [place] [address] Performed By: #### 5 7021-8 #### [facility] CLIA [id number] [address] [place] [address] IMMATURE GRAN % 0.4 % Normal [facility] Comment on above: Order Comment: Speci men Type: BLOOD SPECIMEN Ordering Facility: [facility] Address: [address] [place] [address] Performed By: #### 5 7021-8 #### [facility] CLIA [id number] [address] [place] [address] 20860 IMMATURE GRAN ABS 0.03 k/uL Normal <0.10 [facility] Comment on above: Order Comment: Speci men Type: BLOOD SPECIMEN Ordering Facility: [facility] Address: [address] [place] [address] Performed By: #### 5 7021-8 #### [facility] CLIA [id number] [address] [place] [address] 37972 Lymphocytes (Bld) [#/Vol] 2.10 10*3/uL Normal 1.00-4.00 [facility] Comment on above: Order Comment: Speci men Type: BLOOD SPECIMEN Ordering Facility: [facility] Address: [address] [place] [address] Performed By: #### 5 7021-8 #### [facility] CLIA [id number] [address] [place] [address] 81369 Lymphocytes/100 WBC (Bld) 24.9 % Normal [facility] Comment on above: Order Comment: Speci men Type: BLOOD SPECIMEN Ordering Facility: [facility] Address: [address] [place] [address] Performed By: #### 5 7021-8 #### [facility] CLIA [id number] [address] [place] [address] 02835 MCH (RBC) [Entitic mass] 25.9 pg Low 26.0-34.0 [facility] Comment on above: Order Comment: Speci men Type: BLOOD SPECIMEN Ordering Facility: [facility] Address: [address] [place] [address] Performed By: #### 5 7021-8 #### [facility] CLIA [id number] [address] [place] [address] 66537 MCHC (RBC) [Mass/Vol] 31.3 g/dL Normal 30.5-36.0 [facility] Comment on above: Order Comment: Speci men Type: BLOOD SPECIMEN Ordering Facility: [facility] Address: [address] [place] [address] Performed By: #### 5 7021-8 #### [facility] CLIA [id number] [address] [place] [address] 03024 MCV (RBC) [Entitic vol] 82.7 fL Normal 80.0-100.0 [facility] Comment on above: Order Comment: Speci men Type: BLOOD SPECIMEN Ordering Facility: [facility] Address: [address] [place] [address] Performed By: #### 5 7021-8 #### [facility] CLIA [id number] [address] [place] [address] 60539 Monocytes (Bld) [#/Vol] 0.84 10*3/uL Normal <0.87 [facility] Comment on above: Order Comment: Speci men Type: BLOOD SPECIMEN Ordering Facility: [facility] Address: [address] [place] [address] Performed By: #### 5 7021-8 #### [facility] CLIA [id number] [address] [place] [address] 87862 Monocytes/100 WBC (Bld) 10.0 % Normal [facility] Comment on above: Order Comment: Speci men Type: BLOOD SPECIMEN Ordering Facility: [facility] Address: [address] Performed By: #### 5 7021-8 #### [facility] CLIA [id number] [address] [place] [address] 13335 Neutrophils (Bld) [#/Vol] 5.26 10*3/uL Normal 1.45-7.50 [facility] Comment on above: Order Comment: Speci men Type: BLOOD SPECIMEN Ordering Facility: [facility] Address: [address] [place], [place] [address] Performed By: #### 5 7021-8 #### [facility] CLIA [id number] [address] [place] [address] 19531 Neutrophils/100 WBC (Bld) 62.3 % Normal [facility] Comment on above: Order Comment: Speci men Type: BLOOD SPECIMEN Ordering Facility: [facility] Address: [address] [place], [place] [address] Performed By: #### 5 7021-8 #### [facility] CLIA [id number] [address] [place] [address] 61128 Nucleated RBC (Bld) [#/Vol] 10*3/uL Normal <0.01 [facility] Comment on above: Order Comment: Speci men Type: BLOOD SPECIMEN Ordering Facility: [facility] Address: [address] [place], [place] [address] Performed By: #### 5 7021-8 #### [facility] CLIA [id number] [address] [place] [address] 89157 Nucleated RBC/100 WBC (Bld) [Ratio] 0.0 /100 WBC Normal [facility] Comment on above: Order Comment: Speci men Type: BLOOD SPECIMEN Ordering Facility: [facility] Address: [address] [place], [place] [address] Performed By: #### 5 7021-8 #### [facility] CLIA [id number] [address] [place] [address] 73463 Platelet mean volume (Bld) [Entitic vol] 9.2 fL Normal 9.0-12.7 [facility] Comment on above: Order Comment: Speci men Type: BLOOD SPECIMEN Ordering Facility: [facility] Address: [address] [place] [address] Performed By: #### 5 7021-8 #### [facility] CLIA [id number] [address] [place] [address] 53139 Platelets (Bld) [#/Vol] 199 10*3/uL Normal 150-400 [facility] Comment on above: Order Comment: Speci men Type: BLOOD SPECIMEN Ordering Facility: [facility] Address: [address] [place] [address] Performed By: #### 5 7021-8 #### [facility] CLIA [id number] [address] [place] [address] 72067 RBC (Bld) [#/Vol] 4.44 10*6/uL Normal 3.90-5.20 [facility] Comment on above: Order Comment: Speci men Type: BLOOD SPECIMEN Ordering Facility: [facility] Address: [address] [place] [address] Performed By: #### 5 7021-8 #### [facility] CLIA [id number] [address] [place] [address] 60758 WBC (Bld) [#/Vol] 8.43 10*3/uL Normal 3.70-11.00 [facility] Comment on above: Order Comment: Speci men Type: BLOOD SPECIMEN Ordering Facility: [facility] Address: [address] [place] [address] Performed By: #### 5 7021-8 #### [facility] CLIA [id number] [address] [place] [address] 16295 Abs Immature Gran 0.03 k/uL <0.10 k/uL [facility] Basophils (Bld) [#/Vol] 0.04 10*3/uL <0.11 k/uL [facility] Basophils/100 WBC (Bld) 0.5 % [facility] Differential cell count method Nom (Bld) Auto [facility] Eosinophils (Bld) [#/Vol] 0.16 10*3/uL <0.46 k/uL [facility] Eosinophils/100 WBC (Bld) 1.9 % [facility] Erythrocyte distribution width (RBC) [Ratio] 13.8 % 11.5 - 15.0 % [facility] Hematocrit (Bld) [Volume fraction] 36.7 % 36.0 - 46.0 % [facility] Hemoglobin (Bld) [Mass/Vol] 11.5 g/dL 11.5 - 15.5 g/dL [facility] Immature Gran % 0.4 % [facility] Lymphocytes (Bld) [#/Vol] 2.10 10*3/uL 1.00 - 4.00 k/uL [facility] Lymphocytes/100 WBC (Bld) 24.9 % [facility] MCH (RBC) [Entitic mass] 25.9 pg Low 26.0 - 34.0 pg [facility] MCHC (RBC) [Mass/Vol] 31.3 g/dL 30.5 - 36.0 g/dL [facility] MCV (RBC) [Entitic vol] 82.7 fL 80.0 - 100.0 fL [facility] Monocytes (Bld) [#/Vol] 0.84 10*3/uL <0.87 k/uL [facility] Monocytes/100 WBC (Bld) 10.0 % [facility] Neutrophils (Bld) [#/Vol] 5.26 10*3/uL 1.45 - 7.50 k/uL [facility] Neutrophils/100 WBC (Bld) 62.3 % [facility] Nucleated RBC (Bld) [#/Vol] <0.01 k/uL [facility] Nucleated RBC/100 WBC (Bld) [Ratio] 0.0 /100 WBC [facility] Platelet mean volume (Bld) [Entitic vol] 9.2 fL 9.0 - 12.7 fL [facility] Platelets (Bld) [#/Vol] 199 10*3/uL 150 - 400 k/uL [facility] RBC (Bld) [#/Vol] 4.44 10*6/uL 3.90 - 5.2 0 m/uL [facility] WBC (Bld) [#/Vol] 8.43 10*3/uL 3.70 - 11. 00 k/uL [facility] CNOVSPon 01-25-2022 CNOVSP Visit (SP) Office (H [facility]AS[facility]) RIANA GARCIA ([id number]) 1945 F Date Time Provider Department 01/25/22 3:00 PM JOEY KRUGER During your visit today, we recorded the following information about you: Temperature Pulse Respiration Blood pressure 97.1 degrees 76/minute 16/minute 152/79 Weight Height 81.2 kg 1.64 m Rajni Singh MA 01/25/2022 3:14 PM Signed Patient had a Covid booster Tuesday and her Left arm (at injections site) is red with a [place] around it, she wonders if it is an allergic reaction? LINDSEY Cartwright MD 02/01/2022 8:13 PM Signed NAME: Riana Garcia [facility] NO.: [id number] DATE OF SERVICE: January 25, 2022 Referring Provider: Rosita Schaffer CNP Consultation requested by Rosita Schaffer for an opinion regarding Ms. Riana Garcia, and my final recommendations will be communicated back to the requesting physician by way of shared medical record or letter via US mail. Additional Clinicians involved in Riana Garcia's care: Tello Carmona DIAGNOSIS: PET positive for: Uptake, IgM kappa light chain monoclonal gammopathy. ASSESSMENT: 76 year old woman with a history of colon cancer which she unfortunately has no real recollection or available history from the current accessible records. Work-up of back pain revealed some concerning vertebral lesions that then led to a PET scan demonstrating a long segment of hypermetabolism in the sigmoid colon. She is scheduled to undergo colonoscopy which I fully agree with but also will need records from [facility] with respect to both pathology and surgery. She is also scheduled to have a thyroid nodule biopsied. 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 PLAN: 1. Need path and surgery records from colon cancer prior to 2006 - [facility] [place] 2. Labs drawn today 3. RTC in 10 days to discuss 4. Keep appointment for thyroid nodule biopsy - HPI: CASE HISTORY: 12/30/2021 PET/CT-Long segment of hypermetabolism of the sigmoid colon 12/16/2021 - Mammography BiRads 2 12/02/2021 MRI - difficulty walking and getting up from a chair.changes in bone suggestive of age related vs. Metastatic disease 11/04/2021 MRI L-spine without contrast: Multiple areas of rounded signal abnormality vertebral bodies could represent age-related changes but metastatic disease should be considered. Contrasted MRI recommended. Pre-2006 had colon cancer - partial R??colectomy and no need for chemotherapy Initial Visit, January 25, 2022: Riana Garcia presents today Hematology and Oncology evaluation. She is a 76 year old female who has a history of colon cancer in 2006 but unfortunately does not know any of the details. In November 2021 she had an MRI of the L-spine for back pain and had signal changes suggestive of malignancy. She therefore had a contrasted MRI and subsequently had a PET/CT demonstrating a long segment of hypermetabolism in the sigmoid colon in addition to serologies notable for an IgM kappa light chain monoclonal gammopathy. She is scheduled to see Dr. Carmona for colonoscopy very soon. We will repeat laboratories today. - REVIEW OF SYSTEMS Per HPI and otherwise negative by full review of organ systems. - ECOG PERFORMANCE STATUS: 1 PHYSICAL EXAMINATION: Vitals: BP 152/79 Pulse 76 Temp (Src) 97.1 (Temporal) Resp 16 Ht 5' 4.567 (1.64m) Wt 179 lb (81.2kg) SpO2 98% BMI 30.19 kg/(m2). Body surface area is 1.92 meters squared. Exam limited to gross visualization where appropriate due to COVID-19. Gen.: This is an age-appropriate patient in no acute distress. Head: Appears atraumatic with no visible lesions. Eyes: Pupils equally round and reactive to light, extraocular muscles are intact. Neck: Supple. Mouth: Masked. Respiratory: Appears to be respiring comfortably. Neurologic: Nonfocal to gross visualization. Alert and oriented ?3. Psychiatric: No evidence of inappropriate anxiety or depression. Skin: Visible areas of skin without rash, lesions, wounds or petechiae. - ALLERGIES: ALLERGIES No Known Allergies MEDICATIONS: ferrous sulfate 325 mg (65 mg iron) tablet TAKE 1 TABLET BY MOUTH ONCE A DAY *MAY TURN STOOLS BLACK* losartan (COZAAR) 50 mg tablet Take 50 mg by mouth once daily. carvedilol (COREG) 12.5 mg tablet Take 1 tablet by mouth twice daily with meals. hydrochlorothiazide (HYDRODIURIL, ESIDRIX) 25 mg tabl (more content not included)... Normal [facility] Calcium.ionized [Moles/Vol]o n 01-25-2022 Calcium.ionized (Bld) [Mass/Vol] 1.22 mmol/L 1.08 - 1.30 mmol/L [facility] Calcium.ionized adjusted to pH 7.4 (Bld) [Moles/Vol] 1.22 mmol/L 1.08 - 1.30 mmol/L [facility] Calcium.ionized (Bld) [Mass/Vol] 1.22 mmol/L Normal 1.08-1.30 [facility] Comment on above: Order Comment: Speci men Type: BLOOD SPECIMEN Ordering Facility: [facility] Address: [address] [place] [address] Performed By: #### 3 084-1, 08762-4, 2532-0, 2777-1 #### [facility] CLIA [id number] [address] [place] [address] Calcium.ionized adjusted to pH 7.4 (Bld) [Moles/Vol] 1.22 mmol/L Normal 1.08-1.30 [facility] Comment on above: Order Comment: Speci men Type: BLOOD SPECIMEN Ordering Facility: [facility] Address: [address] [place] [address] Performed By: #### 3 084-1, 62976-6, 2532-0, 277-1 #### [facility] CLIA [id number] [address] [place] [address] Comprehensive metabolic 2000 panelon 01-25-2022 Albumin [Mass/Vol] 4.1 g/dL Normal 3.9-4.9 [facility] Comment on above: Order Comment: Speci men Type: BLOOD SPECIMEN Ordering Facility: [facility] Address: [address] [place] [address] Performed By: #### 3 084-1, 20113-6, 2532-0, 2777-1 #### [facility] CLIA [id number] [address] [place] [address] ALP [Catalytic activity/Vol] 93 U/L Normal 34-123 [facility] Comment on above: Order Comment: Speci men Type: BLOOD SPECIMEN Ordering Facility: [facility] Address: [address] [place] [address] Performed By: #### 3 084-1, 84550-7, 2532-0, 2777-1 #### [facility] CLIA [id number] [address] [place] [address] 32429 ALT [Catalytic activity/Vol] 11 U/L Normal 7-38 [facility] Comment on above: Order Comment: Speci men Type: BLOOD SPECIMEN Ordering Facility: [facility] Address: [address] [place] [address] Performed By: #### 3 084-1, 47204-5, 2532-0, 2777-1 #### [facility] CLIA [id number] [address] [place] [address] 38364 Anion gap [Moles/Vol] 9 mmol/L Normal 9-18 [facility] Comment on above: Order Comment: Speci men Type: BLOOD SPECIMEN Ordering Facility: [facility] Address: [address] [place] [address] Performed By: #### 3 084-1, 52789-9, 2532-0, 2777-1 #### [facility] CLIA [id number] [address] [place] [address] 53223 AST [Catalytic activity/Vol] 14 U/L Normal 13-35 [facility] Comment on above: Order Comment: Speci men Type: BLOOD SPECIMEN Ordering Facility: [facility] Address: [address] [place] [address] Performed By: #### 3 084-1, 71823-7, 2532-0, 2777-1 #### [facility] CLIA [id number] [address] [place] [address] 84762 Bilirubin [Mass/Vol] 0.2 mg/dL Normal 0.2-1.3 [facility] Comment on above: Order Comment: Speci men Type: BLOOD SPECIMEN Ordering Facility: [facility] Address: [address] [place] [address] Performed By: #### 3 084-1, 07228-2, 2532-0, 2776-1 #### [facility] CLIA [id number] [address] [place] [address] 95948 Calcium [Mass/Vol] 9.5 mg/dL Normal 8.5-10.2 [facility] Comment on above: Order Comment: Speci men Type: BLOOD SPECIMEN Ordering Facility: [facility] Address: [address] [place] [address] Performed By: #### 3 084-1, 43318-8, 2-0, 2776- #### [facility] CLIA [id number] [address] [place] [address] 97278 Chloride [Moles/Vol] 104 mmol/L Normal 97-105 [facility] Comment on above: Order Comment: Speci men Type: BLOOD SPECIMEN Ordering Facility: [facility] Address: [address] [place] [address] Performed By: #### 3 084-1, 04857-0, 2-0, 2776- #### [facility] CLIA [id number] [address] [place] [address] 85550 CO2 [Moles/Vol] 28 mmol/L Normal 22-30 [facility] Comment on above: Order Comment: Speci men Type: BLOOD SPECIMEN Ordering Facility: [facility] Address: [address] [place] [address] Performed By: #### 3 084-1, 50440-2, 2532-0, 2776- #### [facility] CLIA [id number] [address] [place] [address] 23994 Creatinine [Mass/Vol] 0.89 mg/dL Normal 0.58-0.96 [facility] Comment on above: Order Comment: Ludy phillips Type: BLOOD SPECIMEN Ordering Facility: [facility] Address: [address] [place] [address] Performed By: #### 3 084-1, 50520-0, 2532-0, 2777-1 #### [facility] CLIA [id number] [address] [place] [address] 85154 ESTIMATED GLOMERULAR FILTRATION RATE 68 mL/min/1.73m??? Normal >=60 [facility] Comment on above: Order Comment: Ludy phillips Type: BLOOD SPECIMEN Ordering Facility: [facility] Address: [address] [place] [address] Result Comment: Ev mated Glomerular Filtration Rate (eGFR) is calculated using the 2020 CKD-EPI creatinine equation. This equation utilizes serum creatinine, sex, and age as parameters. The creatinine assay has traceable calibration to isotope dilution-mass spectrometry. Refer to KDIGO guidelines for clinical interpretation. In patients with unstable renal function, e.g. those with acute kidney injury, the eGFR may not accurately reflect actual GFR. Performed By: #### 3 084-1, 35760-1, 2532-0, 2777-1 #### [facility] CLIA [id number] [address] [place] [address]407 Glucose [Mass/Vol] 97 mg/dL Normal 74-99 [facility] Comment on above: Order Comment: Ludy phillips Type: BLOOD SPECIMEN Ordering Facility: [facility] Address: [address] [place] [address] Result Comment: The [place] [employer] (ADA) provides guidance for cutoff values for fasting glucose and random glucose. The ADA defines fasting as no caloric intake for at least 8 hours. Fasting plasma glucose results between 100 to 125 mg/dL indicate increased risk for diabetes (prediabetes). Fasting plasma glucose results greater than or equal to 126 mg/dL meet the criteria for diagnosis of diabetes. In the absence of unequivocal hyperglycemia, results should be confirmed by repeat testing. In a patient with classic symptoms of hyperglycemia or hyperglycemic crisis, random plasma glucose results greater than or equal to 200 mg/dL meet the criteria for diagnosis of diabetes. Reference: Standards of Medical Care in Diabetes 2016, [place] [employer]. Diabetes Care. 2016.39(Suppl 1). Performed By: #### 3 084-1, 54318-9, 2-0, 2776- #### [facility] CLIA [id number] [address] [place] [address]809 Potassium [Moles/Vol] 4.1 mmol/L Normal 3.7-5.1 [facility] Comment on above: Order Comment: Speci men Type: BLOOD SPECIMEN Ordering Facility: [facility] Address: [address] [place], [place] [id number] Performed By: #### 3 084-1, 41975-0, 2531-0, 2776- #### [facility] CLIA [id number] [address] [place] [address] 97081 Protein [Mass/Vol] 6.8 g/dL Normal 6.3-8.0 [facility] Comment on above: Order Comment: Speci men Type: BLOOD SPECIMEN Ordering Facility: [facility] Address: [address] [place], [place] [address] Performed By: #### 3 084-1, 07653-6, 2531-0, 2776-06 #### [facility] CLIA [id number] [address] [place] [address]51 Sodium [Moles/Vol] 141 mmol/L Normal 136-144 [facility] Comment on above: Order Comment: Speci men Type: BLOOD SPECIMEN Ordering Facility: [facility] Address: [address] [phone] Performed By: #### 3 084-1, 25209-0, 2-0, 2776- #### [facility] CLIA [id number] [address] [place] [address] 79993 Urea nitrogen [Mass/Vol] 27 mg/dL High 7-21 [facility] Comment on above: Order Comment: Speci men Type: BLOOD SPECIMEN Ordering Facility: [facility] Address: [address] [place] [address] Performed By: #### 3 084-1, 15110-2, 2532-0, 2777-1 #### [facility] CLIA [id number] [address] [place] [address] 14956 Albumin [Mass/Vol] 4.1 g/dL 3.9 - 4.9 g/dL [facility] ALP [Catalytic activity/Vol] 93 U/L 34 - 123 U/L [facility] ALT [Catalytic activity/Vol] 11 U/L 7 - 38 U/L [facility] Anion gap [Moles/Vol] 9 mmol/L 9 - 18 mmol/L [facility] AST [Catalytic activity/Vol] 14 U/L 13 - 35 U/L [facility] Bilirubin [Mass/Vol] 0.2 mg/dL 0.2 - 1.3 mg/dL [facility] Calcium [Mass/Vol] 9.5 mg/dL 8.5 - 10. 2 mg/dL [facility] Chloride [Moles/Vol] 104 mmol/L 97 - 105 mmol/L [facility] CO2 [Moles/Vol] 28 mmol/L 22 - 30 mmol/L [facility] Creatinine [Mass/Vol] 0.89 mg/dL 0.58 - 0.96 mg/dL [facility] Estimated Glomerular Filtration Rate 68 mL/min/1.73m >=60 mL/min/1.73m [facility] Glucose [Mass/Vol] 97 mg/dL 74 - 99 mg/dL [facility] Potassium [Moles/Vol] 4.1 mmol/L 3.7 - 5.1 mmol/L [facility] Protein [Mass/Vol] 6.8 g/dL 6.3 - 8.0 g/dL [facility] Sodium [Moles/Vol] 141 mmol/L 136 - 144 mmol/L [facility] Urea nitrogen [Mass/Vol] 27 mg/dL High 7 - 21 mg/dL [facility] IMMUNOFIXATION SCREEN, SERUM on 01-25-2022 INTERPRETATION (MPA) Atypical restricted bands are present in the IgM and kappa regions. Consistent with IgM kappa monoclonal gammopathy. Normal [facility] Comment on above: Order Comment: Speci men Type: BLOOD SPECIMEN Ordering Facility: [facility] Address: [address] [place] [address] Performed By: #### I FESC #### [facility] CLIA [id number] [address] [place] [address] MPA RESULT M protein is present. Abnormal No M p rotein is identified. [facility] Comment on above: Order Comment: Speci men Type: BLOOD SPECIMEN Ordering Facility: [facility] Address: [address] [place] [address] Performed By: #### I FESC #### [facility] CLIA [id number] [address] [place] [address] OF [place] STAFF REVIEW (MPA) Reviewed by María hardy MD Normal [facility] Comment on above: Order Comment: Speci men Type: BLOOD SPECIMEN Ordering Facility: [facility] Address: [address] [place] [address] Performed By: #### I FES #### [facility] CLIA [id number] [address] [place] [address] [place] IMMUNOGLOBULINS GAMon 2021 IgA [Mass/Vol] 153 mg/dL Normal 70-400 [facility] Comment on above: Order Comment: Speci men Type: BLOOD SPECIMEN Ordering Facility: [facility] Address: [address] [place] [address] Performed By: #### S ERIMM #### [facility] CLIA [id number] [address] [place] [address] [place] IgG [Mass/Vol] 1211 mg/dL Normal 700-1600 [facility] Comment on above: Order Comment: Speci men Type: BLOOD SPECIMEN Ordering Facility: [facility] Address: [address] [place], [place] [phone] Performed By: #### S ERIMM #### [facility] CLIA [id number] [address] [place] [address] [place] IgM [Mass/Vol] 357 mg/dL High 40-230 [facility] Comment on above: Order Comment: Speci men Type: BLOOD SPECIMEN Ordering Facility: [facility] Address: [address] [place] [address] Performed By: #### S ERIMM #### [facility] CLIA [id number] [address] [place] [address] [place] KAPPA/LEONARD,FREE,SERon 2021 Immunoglobulin light chains.kappa.free (S) [Mass/Vol] 132.0 mg/L High 3.3-19.4 [facility] Comment on above: Order Comment: Speci men Type: BLOOD SPECIMEN Ordering Facility: [facility] Address: [address] [place] [address] Performed By: #### K LFRS #### [facility] CLIA [id number] [address] [place] [address] [place] Immunoglobulin light chains.kappa/Immun oglobulin light chains.lambda (S) [Mass ratio] 7.95 High 0.26-1.65 [facility] Comment on above: Order Comment: Speci men Type: BLOOD SPECIMEN Ordering Facility: [facility] Address: [address] [place] [address] Performed By: #### K LFRS #### [facility] CLIA [id number] [address] [place] [address] [place] Immunoglobulin light chains.lambda.free [Mass/Vol] 16.6 mg/L Normal 5.7-26.3 [facility] Comment on above: Order Comment: Speci men Type: BLOOD SPECIMEN Ordering Facility: [facility] Address: [address] [place] [address] Performed By: #### K LFRS #### [facility] CLIA [id number] [address] [place] [address] [place] LD LACTATE DEHYDROon 022 LDH [Catalytic activity/Vol] 179 U/L 135 - 214 U/L [facility] LDH SerPl-cCncon 01-25-2022 LDH [Catalytic activity/Vol] 179 U/L Normal 135-214 [facility] Comment on above: Order Comment: Ludy phillips Type: BLOOD SPECIMEN Ordering Facility: [facility] Address: [address] [place] [address] Result Comment: Hemo lysis present. The origin of the hemolysis, in vitro versus an in vivo hemolytic process, cannot be distinguished via this assay alone. In vitro hemolysis may lead to non-physiological (spurious) elevation in lactate dehydrogenase (LDH) results. The result should be interpreted in context of the clinical setting and other test results. Suggest reorder as clinically indicated. Performed By: #### 3 084-1, 77470-3, 2532-0, 2777-1 #### [facility] CLIA [id number] [address] [place] [address]69 PHOSPHORUS INORGANICon 01-25 Phosphate [Mass/Vol] 3.9 mg/dL 2.7 - 4.8 mg/dL [facility] PROTEIN ELECTROPHORESIS SERU M (P)on 01-25-2022 Albumin [Mass/Vol] 3.61 g/dL Normal 3.37-4.23 [facility] Comment on above: Order Comment: Ludy phillips Type: BLOOD SPECIMEN Ordering Facility: [facility] Address: [address] [place] [address] Performed By: #### L [id number] #### [facility] CLIA [id number] [address] [place] [address] [place] Alpha 1 globulin Elph [Mass/Vol] 0.24 g/dL Normal 0.18-0.31 [facility] Comment on above: Order Comment: Ludy phillips Type: BLOOD SPECIMEN Ordering Facility: [facility] Address: [address] [place] [address] Performed By: #### L [id number] #### [facility] CLIA [id number] [address] [place] [address] [place] Alpha 2 globulin Elph [Mass/Vol] 0.66 g/dL Normal 0.52-0.97 [facility] Comment on above: Order Comment: Speci men Type: BLOOD SPECIMEN Ordering Facility: [facility] Address: [address] [place] [address] Performed By: #### L [id number] #### [facility] CLIA [id number] [address] [place] [address] [place] Beta globulin Elph [Mass/Vol] 0.84 g/dL Normal 0.84-1.36 [facility] Comment on above: Order Comment: Speci men Type: BLOOD SPECIMEN Ordering Facility: [facility] Address: [address] [place] [address] Performed By: #### L [id number] #### [facility] CLIA [id number] [address] [place] [address] [place] Gamma globulin Elph (Body fld) [Mass fraction] 1.34 g/dL Normal 0.70-1.44 [facility] Comment on above: Order Comment: Speci men Type: BLOOD SPECIMEN Ordering Facility: [facility] Address: [address] [place] [address] Performed By: #### L [id number] #### [facility] CLIA [id number] [address] [place] [address] [place] INTERPRETATION COMMENT FOR PROTEIN ELECTROPHORESIS Normal [facility] Comment on above: Order Comment: Speci men Type: BLOOD SPECIMEN Ordering Facility: [facility] Address: [address] [place] [address] Result Comment: See separate immunofixation report for characterization of monoclonal gammopathy. M protein is present on the background of a polyclonal immunoglobulin population. Quantitation of the M protein may overestimate the amount of M protein present. Performed By: #### L [id number] #### [facility] CLIA [id number] [address] [place] [address] [place] M-PROTEIN LOCATION Gamma Fraction 1 Normal [facility] Comment on above: Order Comment: Speci men Type: BLOOD SPECIMEN Ordering Facility: [facility] Address: [address] [place], [place] [phone] Performed By: #### L [id number] #### [facility] CLIA [id number] [address] [place] [address] [place] Protein Fractions [Interp] An M protein is identified on protein electrophoresis. Abnormal No definitive M protein is identified on protein electrophore sis. [facility] Comment on above: Order Comment: Speci men Type: BLOOD SPECIMEN Ordering Facility: [facility] Address: [address] [place] [address] Performed By: #### L [id number] #### [facility] CLIA [id number] [address] [place] [address] [place] Protein.monoclonal Elph [Mass/Vol] 0.25 g/dL High <=0.00 [facility] Comment on above: Order Comment: Speci men Type: BLOOD SPECIMEN Ordering Facility: [facility] Address: [address] [place] [address] Performed By: #### L [id number] #### [facility] CLIA [id number] [address] [place] [address] [place] SPE STAFF REVIEW Reviewed by María hardy MD Normal [facility] Comment on above: Order Comment: Speci men Type: BLOOD SPECIMEN Ordering Facility: [facility] Address: [address] [place], [place] [id number] Performed By: #### L [id number] #### [facility] CLIA [id number] [address] [place] [address] [place] Phosphate SerPl-mCncon 01-25 Phosphate [Mass/Vol] 3.9 mg/dL Normal 2.7-4.8 [facility] Comment on above: Order Comment: Speci men Type: BLOOD SPECIMEN Ordering Facility: [facility] Address: [address] [place] [address] Performed By: #### 3 084-1, 54219-5, 2532-0, 2777-1 #### [facility] CLIA [id number] [address] [place] [address]365 Prot [facility]20[facility] Protein [Mass/Vol] 6.7 g/dL Normal 6.3-8.0 [facility] Comment on above: Order Comment: Speci men Type: BLOOD SPECIMEN Ordering Facility: [facility] Address: [address] [place] [address] Performed By: #### 2 885-2, 1951-06 #### [facility] CLIA [id number] [address] [place] [address] [place] URIC ACID BLOODon 01-25-2022 Urate [Mass/Vol] 5.4 mg/dL 2.5 - 6.6 mg/dL [facility] Urate [facility] Urate [Mass/Vol] 5.4 mg/dL Normal 2.5-6.6 [facility] Comment on above: Order Comment: Speci men Type: BLOOD SPECIMEN Ordering Facility: [facility] Address: [address] [place] [address] Performed By: #### 3 084-1, 03710-0, 2532-0, 2777-1 #### [facility] CLIA [id number] [address] [place] [address]4764 Physician Referralon 022 Physician Referral [phone] [id number] Normal [facility] US THYROIDon 01-11-2022 US THYROID EXAMINATION: US THYR OID HISTORY: Non-toxic uninodular goiter COMPARISON: No relevant comparison available. TECHNIQUE: Sonographic images of the thyroid gland were obtained. FINDINGS: The right thyroid lobe measures 3.3 x 1.4 x 1.5 cm. Normal in size, contour and homogeneous echotexture. Single 2 mm cystic nodule Thyroid isthmus measures 2 mm, no focal nodule. Left thyroid lobe is normal in size, lobular contour measuring 4.5 x 2.4 x 1.6 cm. 2 focal nodules Nodule 1: Superior. 2.0 x 1.5 x 1.3 cm. Solid, hypoechoic, wide, smooth margins, no calcifications. TR 4 Nodule 2: Inferior. 1.9 x 1.3 x 1.5 cm. Solid, hypoechoic, tall, smooth margins, no calcifications. TR 5 IMPRESSION: 2 left thyroid nodules. Consider fine-needle aspiration of both nodules. TI-RADS: The [place] [employer] TI-RADS committee's white paper recommendations for thyroid lesions classified as TR4 (moderately suspicious) are listed below: > 1.0 cm. Follow-up ultrasound in 1, 2, 3, and 5 years. > 1.5 cm. FNA. J. Am Mat Radiol 2017;14:587-595. TI-RADS: The [place] [employer] TI-RADS committee's white paper recommendations for thyroid lesions classified as TR5 (highly suspicious) are listed below: > 0.5 cm. Annual ultrasound follow-up for up to 5 years. > 1.0 cm. FNA. J. Am Mat Radiol 2017;14:587-595. Electronically authenticated by: BIRGIT HAMILTON Date: 2022-01-11 07:45 Normal [facility] Glucose Poct Glucometerson 0 12-30-2021 Glucose [Mass/Vol] 95 mg/dL Normal [facility] Comment on above: Result Comment: [facility] Glucose Reference Range is dependent on time and content of last meal. Glucose of more than 200 mg/dL in a nonstressed, ambulatory subject supports the diagnosis of Diabetes Mellitus. PERFORMED BY: [address] [address] PATHOLOGIST CLIENT SUPPORT COORDINATOR FLOYD LOPEZ M.D. Performed By: #### G SALMA #### Point of Care testing , PET tumor init tx strat sb-m ton 12-30-2021 PET tumor init tx strat sb-mt [facility] Main [place] [address] [place] [address] Nuclear Medicine Report Signed Patient: iRana Garcia MR#: [id number] : 1945 Acct:[id number] Age/Sex: 76 / F ADM Date: 12/30/21 Loc: Room: Type: [facility] Attending Dr: Rosita Schaffer Copies to: KARIE Taylor Jeffrey S DO Ordering Provider: KARIE Taylor Date of Service: 12/30/21 PET/PET tumor init tx strat sb-mt: D37.4 COLON CA PET/CT FUSION IMAGING CLINICAL INFORMATION: Colon neoplasm. COMPARISON : None TECHNIQUE: Noncontrasted CT scan from the base of the skull to the upper thigh followed by PET imaging. Multiplanar PET/CT fusion images. The blood sugar is 95mg/dL. The F-18 FDG amount is 13.2mCi. FINDINGS: No mass or adenopathy in the neck identified. No bony lesion seen in the neck. No abnormal neck hypermetabolic uptake identified. 16 mm hypodense LEFT thyroid nodule. Additional 1 cm thyroid nodule identified. Associated hypermetabolism identified. The maximal SUV values 4.1. No lung mass or nodule identified. No pleural effusion is seen. No abnormal lung hypermetabolic uptake identified Few nonenlarged mediastinal lymph nodes identified. No hilar lesion is seen. No abnormal chest wall hypermetabolic uptake identified. Normal accumulation of liver and renal collecting system identified. Long segment of hypermetabolism of the sigmoid colon identified. The maximal SUV value is 5.0. No abnormal hypermetabolic uptake seen. No abdominal mass or adenopathy identified. Bilateral parapelvic renal cysts identified. Nonspecific perinephric stranding identified. No soft tissue wall mass or fluid collection identified. No bony lesion seen. No abnormal hypermetabolic bone lesion seen. No abnormal hypermetabolic soft tissue uptake seen. PET/PET tumor init tx strat sb-mt IMPRESSION: Long segment of hypermetabolism of the sigmoid colon wall. Correlate with infectious or inflammatory etiologies. This may Corresponded with patient's history of colon neoplasm. No hypermetabolic lymph nodes. Hypermetabolic LEFT thyroid nodules. Impression dictated by: Blake Hickey M.D.12/30/2021 2:30 PM Dictation Location: [place] [address] Transcribed By: [facility] 12/30/21 1430 Dictated By: Blake Hickey DO 12/30/21 1411 Signed By: 12/30/21 1430 [facility] MG MAMM RT DIAG FUon 022 MG MAMM RT DIAG FU Patient: LONNIE GARCIA Exam Date: 12/16/2021 : 1945 Gender:F Ordering : STEPHANIE [facility] Admission #: [id number] Family : Order #: [id number] CLICK HERE TO VIEW EXAM RADIOLOGY REPORT PROCEDURE: MAMMOGRAM RIGHT DIAGNOSTIC DIGITAL FOLLOW UP, 12/16/2021, 13:55 ULTRASOUND BREAST RIGHT LIMITED, 12/16/2021, 14:46 COMPARISON: MG MAMM SCREEN 3D THIERRY CAD, 12/11/2021. INDICATIONS: Abnormal findings on diagnostic imaging of breast Calculator Name NCI Breast Cancer Risk Assessment Tool 5 Year Breast Cancer Risk 2.00% Lifetime Breast Cancer Risk 4.50% Personal Breast Cancer No Personal Ovarian Cancer No Treatments None Family Cancers None LOCATION: [facility] BREAST COMPOSITION: Heterogeneously dense,which may obscure small masses. FINDINGS: DIAGNOSTIC CATEGORY 2--BENIGN FINDING: Two spot compression views of the right breast demonstrate a persistent reniform nodule in the upper outer quadrant measuring 7.7 x 5.1 mm. Ultrasound demonstrates at the 10 o'clock position 7.4 cm from the nipple a 0.7 x 0.6 x 0.3 cm normal-size normal morphology lymph node. No further evaluation is required RECOMMENDATIONS: ROUTINE MAMMOGRAM AND CLINICAL EVALUATION IN 12 MONTHS. PLEASE NOTE: A NORMAL MAMMOGRAM DOES NOT EXCLUDE THE POSSIBILITY OF BREAST CANCER. A CLINICALLY SUSPICIOUS PALPABLE LUMP SHOULD BE BIOPSIED. Dictated by: Birgit Hamilton MD on 12/16/2021 at 15:19 Approved by: Birgit Hamilton MD on 12/16/2021 at 15:21 Normal [facility] US BREAST RIGHT LIMITEDon US BREAST RIGHT LIMITED Patient: RIANA GARCIA Exam Date: 12/16/2021 : 1945 Gender:F Ordering : STEPHANIE [facility]FFER [facility] Admission #: [id number] Family : Order #: [id number] CLICK HERE TO VIEW EXAM RADIOLOGY REPORT PROCEDURE: MAMMOGRAM RIGHT DIAGNOSTIC DIGITAL FOLLOW UP, 12/16/2021, 13:55 ULTRASOUND BREAST RIGHT LIMITED, 12/16/2021, 14:46 COMPARISON: MG MAMM SCREEN 3D THIERRY CAD, 12/11/2021. INDICATIONS: Abnormal findings on diagnostic imaging of breast Calculator Name NCI Breast Cancer Risk Assessment Tool 5 Year Breast Cancer Risk 2.00% Lifetime Breast Cancer Risk 4.50% Personal Breast Cancer No Personal Ovarian Cancer No Treatments None Family Cancers None LOCATION: [facility] BREAST COMPOSITION: Heterogeneously dense,which may obscure small masses. FINDINGS: DIAGNOSTIC CATEGORY 2--BENIGN FINDING: Two spot compression views of the right breast demonstrate a persistent reniform nodule in the upper outer quadrant measuring 7.7 x 5.1 mm. Ultrasound demonstrates at the 10 o'clock position 7.4 cm from the nipple a 0.7 x 0.6 x 0.3 cm normal-size normal morphology lymph node. No further evaluation is required RECOMMENDATIONS: ROUTINE MAMMOGRAM AND CLINICAL EVALUATION IN 12 MONTHS. PLEASE NOTE: A NORMAL MAMMOGRAM DOES NOT EXCLUDE THE POSSIBILITY OF BREAST CANCER. A CLINICALLY SUSPICIOUS PALPABLE LUMP SHOULD BE BIOPSIED. Dictated by: Birgit Hamilton MD on 12/16/2021 at 15:19 Approved by: Birgit Hamilton MD on 12/16/2021 at 15:21 Normal [facility] HLA B 27on 12-11-2021 HLA-B27 Negative Normal [facility] Comment on above: Result Comment: HLA- B*27 Negative B27 allele interpretation for all loci based on IMGT/HLA database version 3.44 This test was developed and its performance characteristics determined by [facility]. It has not been cleared or approved by the Food and Drug Administration. [facility] CLIA ID Number [id number] . This test was performed using PCR (Polymerase Chain Reaction)/SSOP (Sequence Specific Oligonucleotide Probes) technique. SBT (Sequence Based Typing) and/or SSP (Sequence Specific Primers) may be used as supplemental methods when necessary. Please contact [facility] Customer Service at if you have any questions. . Director of [facility] Laboratory Dr Floyd Trammell, PhD Performed By: #### H [id number] #### [facility] [address] [place] [address] Dr. Darius Zepeda MG MAMM SCREEN 3D THIERRY CADon 12-11-2021 MG MAMM SCREEN 3D THIERRY CAD Patient: RIANA GARCIA Exam Date: 12/11/2021 : 1945 Gender:F Ordering : STEPHANIE ROSITA [facility] Admission #: [id number] Family : Order #: [id number] CLICK HERE TO VIEW EXAM RADIOLOGY REPORT PROCEDURE: MAMMOGRAM SCREENING 3D BILATERAL CAD COMPARISON: None. INDICATIONS: Screening mammography Calculator Name NCI Breast Cancer Risk Assessment Tool 5 Year Breast Cancer Risk 2.00% Lifetime Breast Cancer Risk 4.50% Personal Breast Cancer No Personal Ovarian Cancer No Treatments None Family Cancers None LOCATION: [facility] BREAST COMPOSITION: Heterogeneously dense,which may obscure small masses. FINDINGS: DIAGNOSTIC CATEGORY 0--INCOMPLETE: NEED ADDITIONAL IMAGING EVALUATION. RIGHT BREAST: 6 mm rounded mass within the posterior upper-outer quadrant. Spot magnification views and ultrasound evaluation recommended. Skin surface moles noted. LEFT BREAST: No significant suspicious finding. Scattered benign-appearing calcifications are present. Skin surface moles noted. RECOMMENDATIONS: ADDITIONAL MAMMOGRAPHIC VIEWS REQUIRED: RIGHT BREAST - RIGHT CRANIOCAUDAL SPOT MAGNIFICATION VIEW - RIGHT OBLIQUE SPOT MAGNIFICATION VIEW - ULTRASOUND: RIGHT BREAST PLEASE NOTE: A NORMAL MAMMOGRAM DOES NOT EXCLUDE THE POSSIBILITY OF BREAST CANCER. A CLINICALLY SUSPICIOUS PALPABLE LUMP SHOULD BE BIOPSIED. Dictated by: Carmel Govea M.D. on 12/11/2021 at 15:25 Approved by: Carmel Govea M.D. on 12/11/2021 at 15:30 Normal [facility] XR CHEST 2 Von 12-11-2021 XR CHEST 2 V EXAMINATION: XR CHES T 2 V HISTORY: Imaging of musculoskeletal system abnormal ; fatigue; history of colon cancer COMPARISON: No relevant comparison available. FINDINGS: LUNGS: Hyperexpanded lungs. No appreciable infiltrates or mass. VASCULATURE: No increased pulmonary vasculature. PLEURA: No pneumothorax, effusion, or pleural thickening. CARDIAC: Mild cardiomegaly. MEDIASTINUM: No visible mass or adenopathy. BONES: No fracture or visible bone lesion. OTHER: Negative. IMPRESSION: 1. No acute cardiac point process. 2. No appreciable mass or suspicious nodules. 3. Hyperexpanded lungs suggestive COPD, and mild cardiomegaly. Electronically authenticated by: CARMEL GOVEA Date: 2021-12-11 18:05 Normal [facility] IMMUNOFIXATION (LIAN), URINEo n 12-09-2021 LIAN Interpretation:U Comment Normal [facility] Comment on above: Result Comment: No m onoclonality detected. Performed By: #### L DH, BMP, LIVER, CRP #### [facility] [address] [address] [address] Darius Zepeda GIGI by IFAon 12-08-2021 Antinuclear Antibodies, IFA Negative Normal [facility] Comment on above: Result Comment: Nega tive <1:80 Borderline 1:80 Positive >1:80 ICAP nomenclature: AC-0 For more information about Hep-2 cell patterns use ANApatterns.org, the official website for the International Consensus on Antinuclear Antibody (GIGI) Patterns (ICAP). Performed By: #### L DH, BMP, LIVER, CRP #### [facility] [address] [address] [address] Darius Zepeda IMMUNOFIXATION (LIAN), SERUMo n 12-08-2021 IMMUNOFIXATION RESULT Comment Abnormal [facility] Comment on above: Result Comment: Immu nofixation shows IgM monoclonal protein with kappa light chain specificity. Performed By: #### L DH, BMP, LIVER, CRP #### [facility] [address] [address] [address] Darius Zepeda Immunoglobulin A, Qn, Serum 157 mg/dL Normal 64-422 [facility] Comment on above: Performed By: #### L DH, BMP, LIVER, CRP #### [facility] [address] [address] [address] Darius Zepeda Immunoglobulin G, Qn, Serum 1264 mg/dL Normal 586-1602 [facility] Comment on above: Performed By: #### L DH, BMP, LIVER, CRP #### [facility] [address] [address] [address] Darius Zepeda Immunoglobulin M, Qn, Serum 364 mg/dL Critically high 26-217 [facility] Comment on above: Performed By: #### L DH, BMP, LIVER, CRP #### [facility] [address] [place] [address] Dr. Darius Zepead CBC AUTO DIFFon 12-04-2021 BASO # 0.1 103/ul Normal 0.0-0.1 [facility] Comment on above: Performed By: #### L DH, BMP, LIVER, CRP #### [facility] [address] [place] [address] Dr. Darius Zepeda Basophils/100 WBC (Bld) 0.6 % Normal 0.2-2.0 [facility] Comment on above: Performed By: #### L DH, BMP, LIVER, CRP #### [facility] [address] [place] [address] Dr. Darius Zepeda EO # 0.1 103/ul Normal 0.0-0.7 [facility] Comment on above: Performed By: #### L DH, BMP, LIVER, CRP #### [facility] [address] [place] [address] Dr. Darius Zepeda Eosinophils/100 WBC (Bld) 1.0 % Normal 0.9-7.0 [facility] Comment on above: Performed By: #### L DH, BMP, LIVER, CRP #### [facility] [address] [place] [address] Dr. Darius Zepeda Erythrocyte distribution width (RBC) [Ratio] 14.0 % Normal 11.0-15.0 [facility] Comment on above: Performed By: #### L DH, BMP, LIVER, CRP #### [facility] [address] [place] [address] Dr. Darius Zepeda Hematocrit (Bld) [Volume fraction] 35.8 % Critically low 36.0-48.0 [facility] Comment on above: Performed By: #### L DH, BMP, LIVER, CRP #### [facility] [address] [place] [address] Dr. Darius Zepeda Hemoglobin (Bld) [Mass/Vol] 11.2 g/dL Critically low 12.0-16.0 [facility] Comment on above: Performed By: #### L DH, BMP, LIVER, CRP #### [facility] [address] [address] [address] Darius Zepeda IG # 0.02 10e3/ul Normal 0.00-0.03 [facility] Comment on above: Performed By: #### L DH, BMP, LIVER, CRP #### [facility] [address] [place] [address] Dr. Darius Zepeda IG % 0.2 % Normal 0.0-0.5 [facility] Comment on above: Performed By: #### L DH, BMP, LIVER, CRP #### [facility] [address] [place] [address] Dr. Darius Zepeda LYMPH # 2.2 103/ul Normal 1.2-3.8 [facility] Comment on above: Performed By: #### L DH, BMP, LIVER, CRP #### [facility] [address] [place] [address] Dr. Darius Zepeda Lymphocytes/100 WBC (Bld) 25.1 % Normal 20.5-60.0 [facility] Comment on above: Performed By: #### L DH, BMP, LIVER, CRP #### [facility] [address] [place] [address] Dr. Darius Zepeda MANUAL DIFF REQ NO Normal [facility] Comment on above: Performed By: #### L DH, BMP, LIVER, CRP #### [facility] [address] [place] [address] Dr. Darius Zepeda MCH (RBC) [Entitic mass] 25.6 pg Critically low 26.7-34.0 [facility] Comment on above: Performed By: #### L DH, BMP, LIVER, CRP #### [facility] [address] [place] [address] Dr. Darius Zepeda MCHC (RBC) [Mass/Vol] 31.3 g/dL Normal 29.9-35.2 [facility] Comment on above: Performed By: #### L DH, BMP, LIVER, CRP #### [facility] [address] [place] [address] Dr. Darius Zepeda MCV (RBC) [Entitic vol] 81.7 fL Normal 81.0-99.0 [facility] Comment on above: Performed By: #### L DH, BMP, LIVER, CRP #### [facility] [address] [place] [address] Dr. Draius Zepeda MONO # 0.7 103/ul Normal 0.3-0.8 [facility] Comment on above: Performed By: #### L DH, BMP, LIVER, CRP #### [facility] [address] [place] [address] Dr. Darius Zepeda Monocytes/100 WBC (Bld) 7.7 % Normal 1.7-12.0 [facility] Comment on above: Performed By: #### L DH, BMP, LIVER, CRP #### [facility] [address] [place] [address] Dr. Darius Zepeda NEUT # 5.7 103/ul Normal 1.4-6.5 [facility] Comment on above: Performed By: #### L DH, BMP, LIVER, CRP #### [facility] [address] [place] [address] Dr. Darius Zepeda Neutrophils/100 WBC (Bld) 65.4 % Normal 43.0-75.0 [facility] Comment on above: Performed By: #### L DH, BMP, LIVER, CRP #### [facility] [address] [place] [address] Dr. Darius Zepeda Platelet mean volume (Bld) [Entitic vol] 10.2 fL Normal 9.5-13.5 [facility] Comment on above: Performed By: #### L DH, BMP, LIVER, CRP #### [facility] [address] [place] [address] Dr. Darius Zepeda PLT 220 103/ul Normal 150-450 [facility] Comment on above: Performed By: #### L DH, BMP, LIVER, CRP #### [facility] [address] [place] [address] Dr. Daruis Zepeda RBC 4.38 106/ul Normal 4.20-5.40 [facility] Comment on above: Performed By: #### L DH, BMP, LIVER, CRP #### [facility] [address] [place] [address] Dr. Darius Zepeda WBC 8.7 103/ul Normal 4.0-11.0 [facility] Comment on above: Performed By: #### L DH, BMP, LIVER, CRP #### [facility] [address] [address] [address] Darius Zepeda CRPon 12-04-2021 CRP 1.1 mg/dL Critically high <=1.0 [facility] Comment on above: Performed By: #### L DH, BMP, LIVER, CRP #### [facility] [address] [address] [address] Darius Zepeda LDHon 12-04-2021 LDH 172 U/L Normal 81-234 [facility] Comment on above: Performed By: #### L DH, BMP, LIVER, CRP #### [facility] [address] [address] [address] Darius Zepeda LIVER PROFILEon 12-04-2021 Albumin [Mass/Vol] 3.7 g/dL Normal 3.4-5.0 [facility] Comment on above: Performed By: #### L DH, BMP, LIVER, CRP #### [facility] [address] [address] [address] Darius Zepeda Albumin/Globulin [Mass ratio] 0.9 {ratio} Normal [facility] Comment on above: Performed By: #### L DH, BMP, LIVER, CRP #### [facility] [address] [address] [address] Darius Zepeda ALP [Catalytic activity/Vol] 80 U/L Normal 46-116 [facility] Comment on above: Performed By: #### L DH, BMP, LIVER, CRP #### [facility] [address] [address] [address] Darius Zepeda ALT [Catalytic activity/Vol] 22 U/L Normal 14-59 [facility] Comment on above: Performed By: #### L DH, BMP, LIVER, CRP #### [facility] [address] [address] [address] Darius Zepeda AST [Catalytic activity/Vol] 15 U/L Normal 15-37 [facility] Comment on above: Performed By: #### L DH, BMP, LIVER, CRP #### [facility] [address] [address] [address] Darius Zepeda BILI, CONJUGATED 0.1 mg/dL Normal 0.0-0.2 [facility] Comment on above: Performed By: #### L DH, BMP, LIVER, CRP #### [facility] [address] [place] [address] Dr. Darius Zepeda Bilirubin [Mass/Vol] 0.6 mg/dL Normal 0.2-1.0 [facility] Comment on above: Performed By: #### L DH, BMP, LIVER, CRP #### [facility] [address] [place] [address] Dr. Darius Zepeda Globulin (S) [Mass/Vol] 3.9 g/dL Normal [facility] Comment on above: Performed By: #### L DH, BMP, LIVER, CRP #### [facility] [address] [place] [address] Dr. Darius Zepeda Protein [Mass/Vol] 7.6 g/dL Normal 6.4-8.2 [facility] Comment on above: Performed By: #### L DH, BMP, LIVER, CRP #### [facility] [address] [place] [address] Dr. Darius Zepeda PROF CHEM 8 (BAS METB)on Anion gap [Moles/Vol] 12.8 mmol/L Normal [facility] Comment on above: Performed By: #### L DH, BMP, LIVER, CRP #### [facility] [address] [place] [address] Dr. Darius Zepeda Calcium [Mass/Vol] 8.7 mg/dL Normal 8.5-10.1 [facility] Comment on above: Performed By: #### L DH, BMP, LIVER, CRP #### [facility] [address] [place] [address] Dr. Darius Zepeda Chloride [Moles/Vol] 105 mmol/L Normal 98-107 [facility] Comment on above: Performed By: #### L DH, BMP, LIVER, CRP #### [facility] [address] [address] [address] Darius Zepeda CO2 [Moles/Vol] 27.1 mmol/L Normal 21.0-32.0 [facility] Comment on above: Performed By: #### L DH, BMP, LIVER, CRP #### [facility] [address] [address] [address] Darius Zepeda Creatinine [Mass/Vol] 1.01 mg/dL Normal 0.55-1.02 [facility] Comment on above: Performed By: #### L DH, BMP, LIVER, CRP #### [facility] [address] [address] [address] Darius Zepeda EGFR-AF BELARUSIAN >60 Normal >=60 [facility] Comment on above: Performed By: #### L DH, BMP, LIVER, CRP #### [facility] [address] [address] [address] Darius Zepeda EGFR-NON AF BELARUSIAN 54 mL/min/1.73m2 Critically low >=60 [facility] Comment on above: Performed By: #### L DH, BMP, LIVER, CRP #### [facility] [address] [address] [address] Darius Zepeda Glucose [Mass/Vol] 96 mg/dL Normal 74-106 [facility] Comment on above: Performed By: #### L DH, BMP, LIVER, CRP #### [facility] [address] [address] [address] Darius Zepeda Potassium [Moles/Vol] 3.9 mmol/L Normal 3.5-5.1 [facility] Comment on above: Performed By: #### L DH, BMP, LIVER, CRP #### [facility] [address] [address] [address] Darius Zepeda Sodium [Moles/Vol] 141 mmol/L Normal 136-145 [facility] Comment on above: Performed By: #### L DH, BMP, LIVER, CRP #### [facility] [address] [address] [address] Darius Zepeda Urea nitrogen [Mass/Vol] 24.0 mg/dL Critically high 7.0-18.0 [facility] Comment on above: Performed By: #### L DH, BMP, LIVER, CRP #### [facility] [address] [place] [address] Dr. Darius Zepeda Urea nitrogen/Creatinin e [Mass ratio] 23.8 mg/mg Normal [facility] Comment on above: Performed By: #### L DH, BMP, LIVER, CRP #### [facility] [address] [place] [address] Dr. Darius Zepeda [facility] 30 mm/hr Normal <=30 [facility] Comment on above: Performed By: #### L DH, BMP, LIVER, CRP #### [facility] [address] [place] [address] Dr. Darius Zepeda UA (CLEAN/CATCH) ELECTRICIAN MACHINE SHOP/MICRO I F IND.on 12-04-2021 Bilirubin Ql (U) Negative Normal NEGATIVE [facility] Comment on above: Performed By: #### L DH, BMP, LIVER, CRP #### [facility] [address] [place] [address] Dr. Darius Zepeda Clarity (U) CLEAR Normal CLEAR [facility] Comment on above: Performed By: #### L DH, BMP, LIVER, CRP #### [facility] [address] [place] [address] Dr. Darius Zepeda Color (U) YELLOW Normal YELLOW [facility] Comment on above: Performed By: #### L DH, BMP, LIVER, CRP #### [facility] [address] [place] [address] Dr. Darius Zepeda Glucose Ql (U) Negative Normal NEGATIVE [facility] Comment on above: Performed By: #### L DH, BMP, LIVER, CRP #### [facility] [address] [place] [address] Dr. Darius Zepeda Hemoglobin Ql (U) Negative Normal NEGATIVE [facility] Comment on above: Performed By: #### L DH, BMP, LIVER, CRP #### [facility] [address] [place] [address] Dr. Darius Zepeda Ketones Ql (U) Negative Normal NEGATIVE [facility] Comment on above: Performed By: #### L DH, BMP, LIVER, CRP #### [facility] [address] [address] [address] Darius Zepeda LEUKOCYTES Negative Normal NEGATIVE [facility] Comment on above: Performed By: #### L DH, BMP, LIVER, CRP #### [facility] [address] [address] [address] Darius Zepeda Nitrite Ql (U) Negative Normal NEGATIVE [facility] Comment on above: Performed By: #### L DH, BMP, LIVER, CRP #### [facility] [address] [address] [address] Darius Zepeda pH (U) 7.0 [pH] Normal 5-9 [facility] Comment on above: Performed By: #### L DH, BMP, LIVER, CRP #### [facility] [address] [place] [address] Dr. Darius Zepeda SPEC GRAVITY 1.020 Normal 1.005-<=1.02 5 [facility] Comment on above: Performed By: #### L DH, BMP, LIVER, CRP #### [facility] [address] [address] [address] Darius Zepeda UA PROTEIN Negative Normal NEGATIVE/ TRACE [facility] Comment on above: Performed By: #### L DH, BMP, LIVER, CRP #### [facility] [address] [address] [address] Darius Zepeda UR MICRO IND NOT INDICATED Normal [facility] Comment on above: Performed By: #### L DH, BMP, LIVER, CRP #### [facility] [address] [address] [address] Darius Zepeda Urobilinogen Qn (U) 0.2 {Nathalia'U}/dL Normal 0.2 - 1.0 [facility] Comment on above: Performed By: #### L DH, BMP, LIVER, CRP #### [facility] [address] [address] [address] Darius Zepeda URINE MICROSCOPIC ONLYon BACTERIA TRACE Abnormal NONE SEEN [facility] Comment on above: Performed By: #### L DH, BMP, LIVER, CRP #### [facility] [address] [address] [address] Darius Zepeda Bacteria identified Cx Nom (U) NOT INDICATED Normal [facility] Comment on above: Performed By: #### L DH, BMP, LIVER, CRP #### [facility] [address] [address] [address] Darius Zepeda CAST NONE SEEN Normal NONE SEEN [facility] Comment on above: Performed By: #### L DH, BMP, LIVER, CRP #### [facility] [address] [address] [address] Darius Zepeda Crystals LM Nom (Urine sed) NONE SEEN Normal NONE SEEN [facility] Comment on above: Performed By: #### L DH, BMP, LIVER, CRP #### [facility] [address] [place] [address] Dr. Darius Zepeda Epithelial cells LM Ql (Urine sed) MODERATE Abnormal NONE SEEN /RARE [facility] Comment on above: Performed By: #### L DH, BMP, LIVER, CRP #### [facility] [address] [place] [address] Dr. Darius Zepeda MUCOUS NONE SEEN Normal NONE SEEN [facility] Comment on above: Performed By: #### L DH, BMP, LIVER, CRP #### [facility] [address] [place] [address] Dr. Darius Zepeda RBC 0-2 Normal 0-2 [facility] Comment on above: Performed By: #### L DH, BMP, LIVER, CRP #### [facility] [address] [address] [address] Darius Zepeda WBC 2-5 Abnormal NONE SEEN [facility] Comment on above: Performed By: #### L DH, BMP, LIVER, CRP #### [facility] [address] [place] [address] Dr. Darius Zepeda MRI LSPINE W CONon 2 MRI LSPINE W CON EXAMINATION: MRI LSP INE W CON HISTORY: Imaging of musculoskeletal system abnormal COMPARISON: 11/04/2021 TECHNIQUE: Axial T1 and T2; Sagittal T1, T2, and STIR sequences. Images were performed before and after the administration of 17 ml intravenous Dotarem contrast. FINDINGS: For the purposes of numbering, sagittal T1 postcontrast image # 10 extends from the T10 vertebral body superiorly to the S3 level inferiorly. PARASPINAL AREA: Normal with no visible mass. BONES: Persistent 5 mm retrolisthesis of L2 on L3 and 2 mm of L3 on L4. Moderate diffuse degenerative spondylosis and facet osteoarthropathy. The rounded lesions throughout the vertebral bodies do not demonstrate postcontrast enhancement however there is moderate to marked contrast enhancement identified along the right L2 vertebral body and right superior L3 vertebral body centered at the intervertebral disc. There is collapse of the disc. No definite extension into the epidural space. CORD/CAUDA EQUINA: Normal caliber, contour, and signal intensity. No abnormal enhancement IMPRESSION: Moderate to marked postcontrast enhancement identified throughout the right L2 and L3 vertebral bodies, without definite enhancement of the disc. The differential diagnosis includes acute/subacute fracture versus degenerative change with metastatic disease and osteomyelitis considered less likely Electronically authenticated by: BIRGIT HAMILTON Date: 2021-12-02 11:44 Normal [facility] CBC AUTO DIFFon 11-11-2021 BASO # 0.0 103/ul Normal 0.0-0.1 [facility] Comment on above: Performed By: #### C BC #### [facility] [address] [place] [address] Dr. Darius Zepeda Basophils/100 WBC (Bld) 0.5 % Normal 0.2-2.0 [facility] Comment on above: Performed By: #### C BC #### [facility] [address] [place] [address] Dr. Darius Zepeda EO # 0.1 103/ul Normal 0.0-0.7 [facility] Comment on above: Performed By: #### C BC #### [facility] [address] [place] [address] Dr. Darius Zepeda Eosinophils/100 WBC (Bld) 1.2 % Normal 0.9-7.0 [facility] Comment on above: Performed By: #### C BC #### [facility] [address] [place] [address] Dr. Darius Zepeda Erythrocyte distribution width (RBC) [Ratio] 13.7 % Normal 11.0-15.0 [facility] Comment on above: Performed By: #### C BC #### [facility] [address] [place] [address] Dr. Darius Zepeda Hematocrit (Bld) [Volume fraction] 35.0 % Critically low 36.0-48.0 [facility] Comment on above: Performed By: #### C BC #### [facility] [address] [place] [address] Dr. Darius Zepeda Hemoglobin (Bld) [Mass/Vol] 11.0 g/dL Critically low 12.0-16.0 [facility] Comment on above: Performed By: #### C BC #### [facility] [address] [place] [address] Dr. Darius Zepeda IG # 0.01 10e3/ul Normal 0.00-0.03 [facility] Comment on above: Performed By: #### C BC #### [facility] [address] [place] [address] Dr. Darius Zepeda IG % 0.1 % Normal 0.0-0.5 [facility] Comment on above: Performed By: #### C BC #### [facility] [address] [place] [address] Dr. Darius eZpeda LYMPH # 2.3 103/ul Normal 1.2-3.8 [facility] Comment on above: Performed By: #### C BC #### [facility] [address] [place] [address] Dr. Darius Zepeda Lymphocytes/100 WBC (Bld) 27.5 % Normal 20.5-60.0 [facility] Comment on above: Performed By: #### C BC #### [facility] [address] [place] [address] Dr. Darius Zepeda MANUAL DIFF REQ NO Normal [facility] Comment on above: Performed By: #### C BC #### [facility] [address] [place] [address] Dr. Darius Zepeda MCH (RBC) [Entitic mass] 25.9 pg Critically low 26.7-34.0 [facility] Comment on above: Performed By: #### C BC #### [facility] [address] [place] [address] Dr. Darius Zepeda MCHC (RBC) [Mass/Vol] 31.4 g/dL Normal 29.9-35.2 [facility] Comment on above: Performed By: #### C BC #### [facility] [address] [place] [address] Dr. Darius Zepeda MCV (RBC) [Entitic vol] 82.4 fL Normal 81.0-99.0 [facility] Comment on above: Performed By: #### C BC #### [facility] [address] [place] [address] Dr. Darius Zepeda MONO # 0.8 103/ul Normal 0.3-0.8 [facility] [place] [facility] Comment on above: Performed By: #### C BC #### [facility] [address] [place] [address] Dr. Darius Zepeda Monocytes/100 WBC (Bld) 9.1 % Normal 1.7-12.0 [facility] [place] [facility] Comment on above: Performed By: #### C BC #### [facility] [address] [place] [address] Dr. Darius Zepeda NEUT # 5.2 103/ul Normal 1.4-6.5 [facility] [place] [facility] Comment on above: Performed By: #### C BC #### [facility] [address] [place] [address] Dr. Darius Zepeda Neutrophils/100 WBC (Bld) 61.6 % Normal 43.0-75.0 [facility] Comment on above: Performed By: #### C BC #### [facility] [address] [place] [address] Dr. Darius Zepeda Platelet mean volume (Bld) [Entitic vol] 9.6 fL Normal 9.5-13.5 [facility] [place] [facility] Comment on above: Performed By: #### C BC #### [facility] [address] [place] [address] Dr. Darius Zepeda PLT 204 103/ul Normal 150-450 [facility] Comment on above: Performed By: #### C BC #### [facility] [address] [place] [address] Dr. Darius Zepeda RBC 4.25 106/ul Normal 4.20-5.40 [facility] Comment on above: Performed By: #### C BC #### [facility] [address] [place] [address] Dr. Darius Zepeda WBC 8.4 103/ul Normal 4.0-11.0 [facility] Comment on above: Performed By: #### C BC #### [facility] [address] [place] [address] Dr. Darius Zepeda CRPon 11-11-2021 CRP 1.1 mg/dL Critically high <=1.0 [facility] [place] [facility] Comment on above: Performed By: #### L DH, BMP, LIVER, CRP #### [facility] [address] [place] [address] Dr. Darius Zepeda FREE T4on 11-11-2021 Free T4 [Mass/Vol] 0.81 ng/dL Normal 0.76-1.46 [facility] Comment on above: Performed By: #### F T4 #### [facility] [address] [place] [address] Dr. Darius Zepeda PROF 14(COMP METB)on 022 Albumin [Mass/Vol] 3.4 g/dL Normal 3.4-5.0 [facility] [place] [facility] Comment on above: Performed By: #### L DH, BMP, LIVER, CRP #### [facility] [address] [place] [address] Dr. Darius Zepeda Albumin/Globulin [Mass ratio] 0.9 {ratio} Normal [facility] Comment on above: Performed By: #### L DH, BMP, LIVER, CRP #### [facility] [address] [place] [address] Dr. Darius Zepeda ALP [Catalytic activity/Vol] 92 U/L Normal 46-116 [facility] Comment on above: Performed By: #### L DH, BMP, LIVER, CRP #### [facility] [address] [address] [address] Darius Zepeda ALT [Catalytic activity/Vol] 23 U/L Normal 14-59 [facility] Comment on above: Performed By: #### L DH, BMP, LIVER, CRP #### [facility] [address] [address] [address] Darius Zepeda Anion gap [Moles/Vol] 9.4 mmol/L Normal [facility] Comment on above: Performed By: #### L DH, BMP, LIVER, CRP #### [facility] [address] [address] [address] Darius Zepeda AST [Catalytic activity/Vol] 14 U/L Critically low 15-37 [facility] Comment on above: Performed By: #### L DH, BMP, LIVER, CRP #### [facility] [address] [address] [address] Darius Zepeda Bilirubin [Mass/Vol] 0.4 mg/dL Normal 0.2-1.0 [facility] Comment on above: Performed By: #### L DH, BMP, LIVER, CRP #### [facility] [address] [address] [address] Darius Zepeda Calcium [Mass/Vol] 9.0 mg/dL Normal 8.5-10.1 [facility] Comment on above: Performed By: #### L DH, BMP, LIVER, CRP #### [facility] [address] [address] [address] Darius Zepeda Chloride [Moles/Vol] 104 mmol/L Normal 98-107 [facility] Comment on above: Performed By: #### L DH, BMP, LIVER, CRP #### [facility] [address] [address] [address] Darius Zepeda CO2 [Moles/Vol] 30.5 mmol/L Normal 21.0-32.0 [facility] Comment on above: Performed By: #### L DH, BMP, LIVER, CRP #### [facility] [address] [address] [address] Darius Zepeda Creatinine [Mass/Vol] 0.92 mg/dL Normal 0.55-1.02 [facility] Comment on above: Performed By: #### L DH, BMP, LIVER, CRP #### [facility] [address] [address] [address] Darius Zepeda EGFR-AF BELARUSIAN >60 Normal >=60 [facility] [place] [facility] Comment on above: Performed By: #### L DH, BMP, LIVER, CRP #### [facility] [address] [address] [address] Darius Zepeda EGFR-NON AF BELARUSIAN 60 mL/min/1.73m2 Normal >=60 [facility] Comment on above: Performed By: #### L DH, BMP, LIVER, CRP #### [facility] [address] [place] [address] Dr. Darius Zepeda Globulin (S) [Mass/Vol] 3.7 g/dL Normal [facility] [place] [facility] Comment on above: Performed By: #### L DH, BMP, LIVER, CRP #### [facility] [address] [place] [address] Dr. Darius Zepeda Glucose [Mass/Vol] 88 mg/dL Normal 74-106 [facility] [place] [facility] Comment on above: Performed By: #### L DH, BMP, LIVER, CRP #### [facility] [address] [place] [address] Dr. Darius Zepeda Potassium [Moles/Vol] 3.9 mmol/L Normal 3.5-5.1 [facility] Comment on above: Performed By: #### L DH, BMP, LIVER, CRP #### [facility] [address] [place] [address] Dr. Darius Zepeda Protein [Mass/Vol] 7.1 g/dL Normal 6.4-8.2 [facility] Comment on above: Performed By: #### L DH, BMP, LIVER, CRP #### [facility] [address] [place] [address] Dr. Dairus Zepeda Sodium [Moles/Vol] 140 mmol/L Normal 136-145 [facility] [place] [facility] Comment on above: Performed By: #### L DH, BMP, LIVER, CRP #### [facility] [address] [place] [address] Dr. Darius Zepeda Urea nitrogen [Mass/Vol] 25.0 mg/dL Critically high 7.0-18.0 [facility] [place] [facility] Comment on above: Performed By: #### L DH, BMP, LIVER, CRP #### [facility] [address] [address] [address] Darius Zepeda Urea nitrogen/Creatinin e [Mass ratio] 27.2 mg/mg Normal [facility] Comment on above: Performed By: #### L DH, BMP, LIVER, CRP #### [facility] [address] [address] [address] D[facility] 14 mm/hr Normal <=30 [facility] [place] [facility] Comment on above: Performed By: #### S EDR #### [facility] [address] [place] [address] Dr. Darius Zepeda TSHon 11-11-2021 TSH 3.474 uIU/mL Normal 0.358-3.740 [facility] [place] [facility] Comment on above: Performed By: #### L DH, BMP, LIVER, CRP #### [facility] [address] [address] [address] Darius Zepeda TSH RANGE SEE BELOW Normal [facility] [place] [facility] Comment on above: Result Comment: <0.3 4 UIU/ml HYPERTHYROID 0.34-5.60 UIU/ml EUTHYROID >5.60 UIU/ml HYPOTHYROID Performed By: #### L DH, BMP, LIVER, CRP #### [facility] [address] [place] [address] Dr. Darius Zepeda MRI LSPINE WO CONon 11-05-19 22 MRI LSPINE WO CON EXAMINATION: MRI LSP INE WO CON HISTORY: Degeneration of lumbar intervertebral disc COMPARISON: No relevant comparison available. TECHNIQUE: A variety of imaging planes and parameters were utilized for visualization of suspected pathology. FINDINGS: For the purposes of numbering, sagittal T2 image # extends from the vertebral body superiorly to the level inferiorly. PARASPINAL AREA: Normal with no visible mass. BONES: Levocurvature. 5 mm retrolisthesis of L2 on L3. 2 mm retrolisthesis of L3 on L4. Moderate diffuse signal abnormality with multiple rounded areas, indeterminate. Signal abnormality lower half of the L2 and upper half of the L3 vertebral body likely degenerative/inflammatory change CORD/CAUDA EQUINA: Normal caliber, contour, and signal intensity. Multiple areas of fluid signal posterior to the S2 and S3 vertebral bodies, incidental cysts. DISC LEVELS: 12-L1: Early degenerative disc disease is present without focal protrusion or neural impingement. L1-L2: Early degenerative disc disease is present without focal protrusion or neural impingement. L2-L3: Asymmetric disc space narrowing with collapse on the right associated endplate sclerosis. 5 mm retrolisthesis of L2 on L3. Moderate posterior diffuse disc/osteophyte complex and ligamentum flavum hypertrophy and facet osteoarthropathy. No definite central canal stenosis. Moderate narrowing of the right neural foramen with mild narrowing of the left neural foramen L3-L4: Disc desiccation. 2 mm retrolisthesis of L3 on L4. Mild diffuse disc/osteophyte complex. Ligamentum flavum hypertrophy and facet osteoarthropathy. No central canal or foraminal stenosis L4-L5: Disc desiccation. Posterior broad-based disc protrusion. Ligamentum flavum hypertrophy and facet osteophytes arthropathy. No central or foraminal stenosis L5-S1: Early degenerative disc disease is present without focal protrusion or neural impingement. IMPRESSION: Multiple areas of rounded signal abnormality vertebral bodies while this could represent age-related change. Metastatic disease should be considered. MRI with contrast is recommended for further evaluation Moderate diffuse degenerative changes with multilevel spondylolisthesis resulting in foraminal stenosis at several levels, most significant at L2-L3 Electronically authenticated by: BIRGIT HAMILTON Date: 2021-11-04 15:15 Normal [facility] FERRITINon 06-02-2021 Ferritin [Mass/Vol] 46 ng/mL Normal 15-150 [facility] [place] [facility] Comment on above: Performed By: #### L DH, BMP, LIVER, CRP #### [facility] [address] [place], [place] [address] Dr. Darius Zepeda VITAMIN B12on 06-02-2021 Cobalamin (Vitamin B12) [Mass/Vol] 637 pg/mL Normal 232-1245 [facility] [place] [facility] Comment on above: Performed By: #### L DH, BMP, LIVER, CRP #### [facility] [address] [place], [place] [address] Dr. Darius Zepead GLYCOHEMOGLOBIN A1Con 2020 ADA RECOMMENDATION ADA THERAPEUTIC TARG ET 6.0 - 7.0 ACTION SUGGESTED > 7.0 Normal [facility] [place] [facility] Comment on above: Performed By: #### L DH, BMP, LIVER, CRP #### [facility] [address] [address] [address] Darius Zepeda Glucose [Mass/Vol] 111 mg/dL Normal [facility] [place] [facility] Comment on above: Performed By: #### L DH, BMP, LIVER, CRP #### [facility] [address] [address] [address] Darius Zepeda HbA1c (Bld) [Mass fraction] 5.5 % Normal <=6.0 [facility] [place] [facility] Comment on above: Performed By: #### L DH, BMP, LIVER, CRP #### [facility] [address] [place] [address] Dr. Darius Zepeda IRONon 06-01-2021 Iron [Mass/Vol] 55.0 ug/dL Normal 37.0-170.0 [facility] [place] [facility] Comment on above: Performed By: #### I HO #### [facility] [address] [address] [address] Darius Zepeda TSHon 06-01-2021 TSH 3.277 uIU/mL Normal 0.470-4.680 [facility] Comment on above: Performed By: #### L DH, BMP, LIVER, CRP #### [facility] [address] [place] [address] Dr. Darius Zepeda TSH RANGE SEE BELOW Normal [facility] Comment on above: Result Comment: <0.3 4 UIU/ml HYPERTHYROID 0.34-5.60 UIU/ml EUTHYROID >5.60 UIU/ml HYPOTHYROID Performed By: #### L DH, BMP, LIVER, CRP #### [facility] [address] [place] [address] Dr. Darius Zepeda XR LSPINE 2_3 VIEWSon 2020 XR LSPINE 2_3 VIEWS EXAMINATION: XR LSPINE 2_3 VIEWS HISTORY: Musculoskeletal symptom ; acute lumbar pain and lower extremity weakness; no known injury COMPARISON: No relevant comparison available. FINDINGS: BONES: Mild left convex curvature of the lumbar spine. Moderate grade 1 retrolisthesis of L3 on 4. Mild grade 1 retrolisthesis of L2 on 3 and L4 on L5. Moderate-marked degenerative facet arthropathy at L2-L3 through L5-S1. No compression fracture. DISC SPACES: Marked narrowing and moderate degenerative endplate changes at L2-L3. Mild-moderate narrowing at remaining levels. PARASPINOUS: Negative. No paraspinous abnormality is seen. OTHER: Negative. IMPRESSION: 1. Multilevel moderate marked degenerative changes of the lumbar spine combined with multilevel grade 1 retrolisthesis likely contribute to central canal and neural foramen narrowing. Consider follow-up MRI of lumbar spine. Electronically authenticated by: CARMEL GOVEA Date: 2021-05-26 07:10 Normal [facility] CBC AUTO DIFFon 05-25-2021 BASO # 0.1 103/ul Normal 0.0-0.1 [facility] Comment on above: Performed By: #### L DH, BMP, LIVER, CRP #### [facility] [address] [address] [address] Darius Zepeda Basophils/100 WBC (Bld) 0.6 % Normal 0.2-2.0 [facility] [place] [facility] Comment on above: Performed By: #### L DH, BMP, LIVER, CRP #### [facility] [address] [address] [address] Darius Zepeda EO # 0.1 103/ul Normal 0.0-0.7 [facility] Comment on above: Performed By: #### L DH, BMP, LIVER, CRP #### [facility] [address] [address] [address] Darius Zepeda Eosinophils/100 WBC (Bld) 1.0 % Normal 0.9-7.0 [facility] Comment on above: Performed By: #### L DH, BMP, LIVER, CRP #### [facility] [address] [address] [address] Darius Zepeda Erythrocyte distribution width (RBC) [Ratio] 14.0 % Normal 11.0-15.0 [facility] Comment on above: Performed By: #### L DH, BMP, LIVER, CRP #### [facility] [address] [place] [address] Dr. Darius Zepeda Hematocrit (Bld) [Volume fraction] 38.4 % Normal 36.0-48.0 [facility] [place] [facility] Comment on above: Performed By: #### L DH, BMP, LIVER, CRP #### [facility] [address] [place] [address] Dr. Darius Zepeda Hemoglobin (Bld) [Mass/Vol] 11.9 g/dL Critically low 12.0-16.0 [facility] [place] [facility] Comment on above: Performed By: #### L DH, BMP, LIVER, CRP #### [facility] [address] [place] [address] Dr. Darius Zepeda IG # 0.02 10e3/ul Normal 0.00-0.03 [facility] [place] [facility] Comment on above: Performed By: #### L DH, BMP, LIVER, CRP #### [facility] [address] [place] [address] Dr. Darius Zepeda IG % 0.2 % Normal 0.0-0.5 [facility] [place] [facility] Comment on above: Performed By: #### L DH, BMP, LIVER, CRP #### [facility] [address] [place] [address] Dr. Darius Zepeda LYMPH # 2.2 103/ul Normal 1.2-3.8 [facility] [place] [facility] Comment on above: Performed By: #### L DH, BMP, LIVER, CRP #### [facility] [address] [place] [address] Dr. Darius Zepeda Lymphocytes/100 WBC (Bld) 24.0 % Normal 20.5-60.0 [facility] [place] [facility] Comment on above: Performed By: #### L DH, BMP, LIVER, CRP #### [facility] [address] [place] [address] Dr. Darius Zepeda MANUAL DIFF REQ NO Normal [facility] [place] [facility] Comment on above: Performed By: #### L DH, BMP, LIVER, CRP #### [facility] [address] [place] [address] Dr. Darius Zepeda MCH (RBC) [Entitic mass] 25.5 pg Critically low 26.7-34.0 [facility] Comment on above: Performed By: #### L DH, BMP, LIVER, CRP #### [facility] [address] [place] [address] Dr. Darius Zepeda MCHC (RBC) [Mass/Vol] 31.0 g/dL Normal 29.9-35.2 [facility] Comment on above: Performed By: #### L DH, BMP, LIVER, CRP #### [facility] [address] [place] [address] Dr. Darius Zepeda MCV (RBC) [Entitic vol] 82.2 fL Normal 81.0-99.0 [facility] Comment on above: Performed By: #### L DH, BMP, LIVER, CRP #### [facility] [address] [place] [address] Dr. Darius Zepeda MONO # 0.6 103/ul Normal 0.3-0.8 [facility] Comment on above: Performed By: #### L DH, BMP, LIVER, CRP #### [facility] [address] [place] [address] Dr. Darius Zepeda Monocytes/100 WBC (Bld) 6.5 % Normal 1.7-12.0 [facility] Comment on above: Performed By: #### L DH, BMP, LIVER, CRP #### [facility] [address] [place] [address] Dr. Darius Zepeda NEUT # 6.1 103/ul Normal 1.4-6.5 [facility] Comment on above: Performed By: #### L DH, BMP, LIVER, CRP #### [facility] [address] [place] [address] Dr. Darius Zepeda Neutrophils/100 WBC (Bld) 67.7 % Normal 43.0-75.0 [facility] Comment on above: Performed By: #### L DH, BMP, LIVER, CRP #### [facility] [address] [place] [address] Dr. Darius Zepeda Platelet mean volume (Bld) [Entitic vol] 9.6 fL Normal 9.5-13.5 [facility] Comment on above: Performed By: #### L DH, BMP, LIVER, CRP #### [facility] [address] [address] [address] Darius Zepeda PLT 228 103/ul Normal 150-450 [facility] Comment on above: Performed By: #### L DH, BMP, LIVER, CRP #### [facility] [address] [address] [address] Darius Zepeda RBC 4.67 106/ul Normal 4.20-5.40 [facility] Comment on above: Performed By: #### L DH, BMP, LIVER, CRP #### [facility] [address] [place] [address] Dr. Darius Zepeda WBC 9.0 103/ul Normal 4.0-11.0 [facility] [place] [facility] Comment on above: Performed By: #### L DH, BMP, LIVER, CRP #### [facility] [address] [place] [address] Dr. Darius Zepeda PROF 14(COMP METB)on 021 Albumin [Mass/Vol] 3.8 g/dL Normal 3.5-5.0 [facility] [place] [facility] Comment on above: Performed By: #### L DH, BMP, LIVER, CRP #### [facility] [address] [place] [address] Dr. Darius Zepeda Albumin/Globulin [Mass ratio] 0.9 {ratio} Normal [facility] [place] [facility] Comment on above: Performed By: #### L DH, BMP, LIVER, CRP #### [facility] [address] [place] [address] Dr. Darius Zepeda ALP [Catalytic activity/Vol] 94 U/L Normal 38-126 [facility] Comment on above: Performed By: #### L DH, BMP, LIVER, CRP #### [facility] [address] [place] [address] Dr. Darius Zepeda ALT [Catalytic activity/Vol] 27 U/L Normal 9-52 [facility] [place] [facility] Comment on above: Performed By: #### L DH, BMP, LIVER, CRP #### [facility] [address] [place] [address] Dr. Darius Zepeda Anion gap [Moles/Vol] 13.3 mmol/L Normal [facility] Comment on above: Performed By: #### L DH, BMP, LIVER, CRP #### [facility] [address] [address] [address] Darius Zepeda AST [Catalytic activity/Vol] 16 U/L Normal 14-36 [facility] Comment on above: Performed By: #### L DH, BMP, LIVER, CRP #### [facility] [address] [address] [address] Darius Zepeda Bilirubin [Mass/Vol] 0.5 mg/dL Normal 0.2-1.3 [facility] Comment on above: Performed By: #### L DH, BMP, LIVER, CRP #### [facility] [address] [place] [address] Dr. Darius Zepeda Calcium [Mass/Vol] 9.5 mg/dL Normal 8.4-10.2 [facility] Comment on above: Performed By: #### L DH, BMP, LIVER, CRP #### [facility] [address] [place] [address] Dr. Darius Zepeda Chloride [Moles/Vol] 103 mmol/L Normal 98-107 [facility] Comment on above: Performed By: #### L DH, BMP, LIVER, CRP #### [facility] [address] [place] [address] Dr. Darius Zepeda CO2 [Moles/Vol] 27.2 mmol/L Normal 22.0-30.0 [facility] Comment on above: Performed By: #### L DH, BMP, LIVER, CRP #### [facility] [address] [place] [address] Dr. Darius Zepeda Creatinine [Mass/Vol] 0.98 mg/dL Normal 0.52-1.04 [facility] Comment on above: Performed By: #### L DH, BMP, LIVER, CRP #### [facility] [address] [address] [address] Darius Zepeda EGFR-AF BELARUSIAN >60 Normal >=60 [facility] Comment on above: Performed By: #### L DH, BMP, LIVER, CRP #### [facility] [address] [address] [address] Darius Zepeda EGFR-NON AF BELARUSIAN 55 mL/min/1.73m2 Critically low >=60 [facility] [place] [facility] Comment on above: Performed By: #### L DH, BMP, LIVER, CRP #### [facility] [address] [place] [address] Dr. Darius Zepeda Globulin (S) [Mass/Vol] 4.2 g/dL Normal [facility] [place] [facility] Comment on above: Performed By: #### L DH, BMP, LIVER, CRP #### [facility] [address] [address] [address] Darius Zepeda Glucose [Mass/Vol] 109 mg/dL Critically high 74-106 [facility] Comment on above: Performed By: #### L DH, BMP, LIVER, CRP #### [facility] [address] [place] [address] Dr. Darius Zepeda Potassium [Moles/Vol] 3.5 mmol/L Normal 3.4-5.0 [facility] [place] [facility] Comment on above: Performed By: #### L DH, BMP, LIVER, CRP #### [facility] [address] [place] [address] Dr. Darius Zepeda Protein [Mass/Vol] 8.0 g/dL Normal 6.1-8.2 [facility] [place] [facility] Comment on above: Performed By: #### L DH, BMP, LIVER, CRP #### [facility] [address] [place] [address] Dr. Darius Zepeda Sodium [Moles/Vol] 140 mmol/L Normal 137-145 [facility] [place] [facility] Comment on above: Performed By: #### L DH, BMP, LIVER, CRP #### [facility] [address] [place] [address] Dr. Darius Zepeda Urea nitrogen [Mass/Vol] 19.0 mg/dL Critically high 7.0-17.0 [facility] [place] [facility] Comment on above: Performed By: #### L DH, BMP, LIVER, CRP #### [facility] [address] [place] [address] Dr. Darius Zepeda Urea nitrogen/Creatinin e [Mass ratio] 19.4 mg/mg Normal [facility] Comment on above: Performed By: #### L DH, BMP, LIVER, CRP #### [facility] [address] [address] [address] Darius Zepeda Vital Signs Date Time Vital Sign Value Performing Clinician Facility 02-16-2022 13:09-0400 Blood Pressure Location Tello NILL [facility] [place] 02-16-2022 13:09-0400 Diastolic blood pressure 86 mm[Hg] Tello NILL [facility] 02-16-2022 13:09-0400 Heart rate 74 /min Tello NILL [facility] [place] 02-16-2022 13:09-0400 Respiratory rate 16 /min Tello NILL [facility] [place] 02-16-2022 13:09-0400 Systolic blood pressure 122 mm[Hg] Tello NILL [facility] 01-25-2022 15:04-0400 Body height 164 cm Joey Kruger MD Work Phone: [facility] 01-25-2022 15:04-0400 Body temperature 97.11 [degF] Joey Kruger MD Work Phone: [facility] 01-25-2022 15:04-0400 Body weight 81.19 kg Joey Kruger MD Work Phone: [facility] 01-25-2022 15:04-0400 Diastolic blood pressure 79 mm[Hg] Joey Kruger MD Work Phone: [facility] 01-25-2022 15:04-0400 Heart rate 76 /min Joey Kruger MD Work Phone: [facility] 01-25-2022 15:04-0400 Respiratory rate 16 /min Joey Kruger MD Work Phone: [place] [address]4729-22-2022 15:04-0400 SaO2% (BldA) [Mass fraction] 98 % Joey Kruger MD Work Phone: [facility] 01-25-2022 15:04-0400 Systolic blood pressure 152 mm[Hg] Joey Kruger MD Work Phone: [facility] Encounters Encounter Date Encounter Type Care Provider Facility Start: 03-31-2022 End: 04-01-2022 ambulatory Tello CARMONA Facility: [facility] Start: 03-31-2022 End: 03-31-2022 Patient encounter procedure Tello CARMONA General Surgery Danny/Kimberlee [facility] Start: 03-10-2022 Encounter for preprocedural laboratory examination DR TELLO CARMONA [facility] Start: 03-10-2022 End: 03-11-[address] TELLO CARMONA Facility:[facility] Start: 03-06-2022 End: 03-07-[address] TELLO CARMONA Facility:[facility] Start: 03-06-2022 End: 03-07-2022 Encounter for preprocedural laboratory examination DR TELLO CARMONA Facility:[facility] Start: 02-16-2022 End: 02-17-2022 ambulatory Tello CARMONA Facility: [facility] Start: 02-16-2022 End: 02-16-2022 Patient encounter procedure Tello CARMONA General Surgery Danny/Kimberlee [facility] Start: 02-02-2022 End: 02-02-2022 ambulatory STEPHANIE MARTINOA HERNESTO Facility:[facility] Start: 01-25-2022 End: 01-25-2022 ambulatory Joey Kruger MD Work Phone: Hematology/Oncology Comment on above: 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); Malignant neoplasm of colon, unspecified part of colon (HCC) Start: 01-25-2022 End: 01-25-2022 Patient encounter procedure Joey Kruger MD Work Phone: [facility] Start: 01-22-2022 Chart abstracting Joey lopez MD Work Phone: Hematology/Oncology Start: 01-13-2022 ambulatory Tello CARMONA Facility :[facility] Start: 01-08-2022 End: 01-09-[address] BIRGIT HAMILTON Facility:[facility] Start: 12-16-2021 End: 12-17-[address] BIRGIT HAMILTON Facility:[facility] Start: 12-11-2021 End: 12-12-2021 ambulatory VALVE AND REGULATOR REPAIRER ROSITA AICHCARMELLA Facility:[facility] Start: 12-04-2021 End: 12-05-2021 ambulatory VALVE AND REGULATOR REPAIRER ROSITATyra WATSONZ Facility:[facility] Start: 12-02-2021 End: 12-03-[address] BIRGIT HAMILTON Facility:[facility] Start: 11-11-2021 End: 11-12-2021 ambulatory VALVE AND REGULATOR REPAIRER ROSITATyra SCHAFFER Facility:[facility] Start: 11-04-2021 End: 11-05-[address] BIRGIT HAMILTON Facility:[facility] Start: 06-01-2021 End: 06-02-2021 ambulatory VALVE AND REGULATOR REPAIRER ROSITA AICBryanCARMELLA Facility:[facility] Start: 05-25-2021 End: 05-26-2021 ambulatory VALVE AND REGULATOR REPAIRER ROSITA AICHHOLZ Facility:[facility] Start: 04-14-2021 End: 04-15-2021 ambulatory CIELO CERVANTES Facility:[facility] Procedures Date Procedure Procedure Detail Performing Clinician Start: 03-10-2022 Colonoscopy Tello SILVA LL Start: 03-10-2022 Esophagogastroduodenoscopy Tello CARMONA Start: 03-10-2007 Colonoscopy Tello NI LL Biopsy of thyroid Tello SCANLON Colonoscopy Tello LARESL Lumpectomy of left breast [place] DANNY Partial resection of colon M becki DANNY Plan of Treatment Date Care Activity Detail Author Start: 01-25-2025 DIABETES SCREEN DIABETES SCREEN [facility] Start: 02-04-2022 Influenza vaccination INFLUENZA (#1) [facility] Start: 06-06-2021 ADVANCE DIRECTIVE DISCUSSION ADVANCE DIRECTIVE DISCUSSION [facility] Start: 2012 BONE DENSITY BONE DENSITY [facility] Start: 2012 PNEUMOCOCCAL: 65+ (1 - PCV) PNEUMOCOCCAL: 65+ (1 - PCV) [facility] Start: 1997 SHINGRIX VACCINE (1 of 2) SHINGRIX V ACCINE (1 of 2) [facility] Start: 1992 COLOGUARD (FIT-DNA) COLOGUARD (FIT-D NA) [facility] Start: 1992 Colonoscopy COLONOSCOPY [facility] Start: 1992 COLORECTAL CANCER SCREENING COLORECTAL CANCER SCREENING [facility] Start: [address] COLONOGRAPHY [facility] Start: 1992 DIABETES SCREEN DIABETES SCREEN [facility] Start: 1992 FECAL OCCULT BLOOD FECAL OCCULT BLOO D [facility] Start: 1992 LIPID SCREEN LIPID SCREEN [facility] Start: 1992 SIGMOIDOSCOPY SIGMOIDOSCOPY [facility] Start: 1987 Mammography MAMMOGRAM [facility] Start: 1966 Urine microalbumin profile DTAP,TDAP ,TD (1 - Tdap) [facility] Start: 1965 [facility]PATITIS [facility] Start: 1959 Adult depression [facility] DEPRESSION SCREENING [facility] Start: 1947 COVID-19 VACCINE (#1) COVID-19 VACCI NE (#1) [facility] Immunizations Immunization Date Immunization Notes Care Provider [facility] 01-23-2022 COVID-19 vaccine, fu ll dose (MODERNA) Joey Kurger MD Work Phone: [facility] 04-14-2021 COVID-19 vaccine, fu ll dose (MODERNA) Joey Kruger MD Work Phone: [facility] 08-27-2020 COVID-19 vaccine, fu ll dose (MODERNA) Joey Kruger MD Work Phone: [facility] 07-21-2020 COVID-19 vaccine, fu ll dose (MODERNA) Joey Kruger MD Work Phone: [facility] Payers Date Payer Category Payer Medicaid MEDICAID [facility] MEDICAID [id number] 2022-2022 [address] [place] [address] Medicaid [id number] 1993 Medicare MEDICARE MEDICAR E A AND B [id number] 1993-2022 [address] [address] [place] [address] Medicare [id number] 1959 Medicaid [id number] 1959 Medicare [id number] 1959 Self-pay [id number] 1947 Unknown [id number] 1947 Unknown [id number] [id number] 1947 Unknown [id number] 2.16.840.1.819659.3.579.2.593 1947 Unknown [id number] 2.16.840.1.714411.3.579.2.593 1947 Unknown [id number] 2.16.840.1.184691.3.579.2.593 1947 Unknown [id number] 2.16.840.1.926359.3.579.2.593 1947 Unknown [id number] 2.16.840.1.900392.3.579.2.593 1947 Unknown [id number] 2.16.840.1.377592.3.579.2.593 1947 Unknown [id number] 2.16.840.1.222875.3.579.2.593 1947 Unknown [id number] 2.16.840.1.474431.3.579.2.593 1947 Unknown [id number] 2.16.840.1.792649.3.579.2.593 1947 Unknown [id number] 2.16.840.1.344412.3.579.2.593 1947 Unknown [id number] 2.16.840.1.500814.3.579.2.727 1947 Unknown [id number] 2.16.840.1.641606.3.579.2.727 1947 Unknown [id number] 2.16.840.1.500152.3.579.2.727 1947 Unknown [id number] [id number] Unknown [id number] [id number] Social History Date Type Detail Facility Start: 10-16-2013 End: 02-16-2022 Tobacco smoking status NHIS Never smoked tobacco [facility] Start: 10-16-2013 End: 01-25-2022 Tobacco use and exposure Smokeless tobacco non-user [facility] Start: 01-22-2022 End: 01-25-2022 Alcohol intake Current non-drinker of alcohol (finding) [facility] Start: 1945 Sex Assigned At Not on file [facility] History of tobacco use Passive smoker [facility] Start: 01-15-2022 End: 01-25-2022 Exposure to SARS-CoV-2 (event) Not sure [facility] Tobacco smoking status Never [facility] Sex Assigned At Female [facility] [place] Functional Status Date Assessment Result Facility 02-16-2022 Functional Status N/A General [address] [facility] Clinical Notes 01-25-2022 to 03-10-2022 Patient InstructionsJoey Kruger MD - 01/25/2022 3:26 PM EDTDojessica Nicholas MA - 01/25/2022 3:13 PM EDT Note Date & Type Note Facility 03-10-2022 Note OPERATIVE NOTE OPERATION DATE: 03/10/2022 PREOPERATIVE DIAGNOSIS: Iron deficiency anemia as well as abnormal PET scan, personal history of colon cancer. POSTOPERATIVE DIAGNOSIS: Gastritis within the gastric body and cardia, small gastric polyps, redundant colon with 3 mm sigmoid colon polyp. PROCEDURE: EGD with biopsy of gastric body and cardia gastritis as well as colonoscopy to ileocolic anastomosis with cold forceps polypectomy for sigmoid polyp. SURGEON: Tello Carmona M.D. ANESTHESIA: Monitored anesthesia care. ESTIMATED BLOOD LOSS: Less than 1 mL. INDICATIONS AND CONSENT: Patient is a 76-year-old female with history of iron deficiency anemia, as well as abnormal PET scan with sigmoid increased activity, personal history of colon cancer, status post remote right hemicolectomy. Indications, risks, benefits, alternatives of proceeding with EGD and colonoscopy were explained extensively to the patient, including the risks of bleeding, aspiration, esophageal/gastric/duodenal or colonic perforation or anesthetic complications. All of her questions were answered. Informed consent was obtained. PROCEDURE: Patient brought to the operating room, placed in the left lateral decubitus position. Monitored anesthesia care was provided. A bite block was placed in the patient's mouth. Scope was inserted into the oropharynx. Under direct visualization, it was advanced into the esophagus, past the cricopharyngeus, down to the stomach. The stomach was insufflated with air. The pylorus was traversed down to the descending portion of the duodenum. There was no evidence of blood, mass or ulceration. There was no scarring within the pyloric channel. Scope was pulled back into the stomach and retroflexed. There was no significant hiatal hernia. Within the body and cardia there was noted to be diffuse gastritis with punctate areas of erythema throughout this area. Multiple biopsies were obtained with good hemostasis. There were also some small hyperplastic polyps noted. The GE junction was noted at 47 cm. There was no distal esophagitis or Ngo's changes. Remainder of the esophagus was unremarkable. The scope was then withdrawn. The patient was then positioned for colonoscopy. Rectal exam was performed which showed no masses or blood, some decreased tone. The scope was inserted into the anal canal. Under direct visualization was advanced. With the aid of abdominal compression, it was advanced to the ileocolic anastomosis, which was noted to be widely patent. There was no evidence of ulcerations or mass lesions or bleeding. Upon withdrawal of the scope, mucosal surfaces were carefully examined. There were no mass lesions or inflammatory changes. No significant diverticulosis. In the sigmoid colon, there was noted to be a 3 mm sessile poly that was removed with cold biopsy forceps with good hemostasis. The scope was retroflexed in the anal canal. There were some prominent rectal veins. No significant hemorrhoidal disease. The scope was then withdrawn. Patient tolerated procedure well, was sent to recovery room in good condition. CC: Rosita Schaffer CNP [facility] 02-16-2022 Note Chief Complaint consultation for abnormal PET scan HPI Staff 76 year old female presents on consultation from Rosita Schaffer for abnormal PET scan. History of colon cancer with colectomy. Last colonoscopy completed 03/2007- normal. Denies abdominal or rectal pain. No rectal bleeding. Denies change in bowel habits, reports chronic constipation. Denies nausea or vomiting. No unexplained weight loss. History of Present Illness 76 yo female with h/o htn, anemia, personal h/o colon cancer; referred for iron deficiency anemia, abnormal sigmoid colon on PET scan; denies change in bms or blood in stools; some recent constipation since starting iron therapy; no N/V or wt loss, no dysphagia or GERD symptoms; h/o right colectomy for colon cancer approximately 25 years ago; last colonoscopy 2006, wnl; no asa or NSAID use, no SBE prophylaxis; no other abdominal operations; no fmhx of GI malignancy or IBD; no previous EGD. Review of Systems PHQ Score Initial Depression Screen Score: 0 ROS - Provider Constitutional: no fever, no sweats, no weight loss. Eyes: no glasses, no blurred vision, no visual loss. ENMT: no dentures, no hoarseness, no swallowing difficulties, no hearing loss, no ear infection(s), no nose bleeds. Cardiovascular: normal blood pressure, no chest pain, regular heartbeat, no heart murmur. Respiratory: no shortness of breath, no cough, no asthma, no wheezing. Gastrointestinal: no nausea, no vomiting, no diarrhea, no constipation, no blood in stool, no change in bowel habits, no abdominal pain, no hepatitis. Genitourinary: no kidney stones, no urine infection, no dysuria. Musculoskeletal: no pain, no weakness. Skin: no changing moles, no rash, no skin lumps. Neurologic: no seizures, no epilepsy, no headache. Psychiatric: no emotional or psychiatric problem. Heme/Lymph: no bleeding problems, no anemia, no blood clots, no transfusions. Allergy/Immunologic: no swollen lymph nodes/glands, no IV drug abuse. Other: Additional ROS info: Except as noted in the above Review of Systems and in the History of Present Illness, all other systems have been reviewed and are negative or noncontributory. Physical Exam Vitals & Measurements HR: 74(Peripheral) RR: 16 BP: 122/86 HT: 162.5 cm HT: 162.5 cm WT: 83 kg WT: 83.0 kg BMI: 31.43 HEENT: normal conjunctiva, sclera clear, no scleral icterus, EOM intact, PERRLA, oral mucosa moist without lesions. Neck: trachea midline, no mass, symmetric, no thyromegaly or nodules, no adenopathy Respiratory: lungs CTA, respirations non labored. Cardiovascular: regular rate and rhythm, no murmur, no pedal edema or varicosities. Gastrointestinal: soft, non distended, no tenderness, no masses, well-healed midline incision; no palpable hernias, diastasis recti no, no hepatosplenomegaly; normal bs Lymphatic: no cervical adenopathy, Musculoskeletal: normal gait, digits and nails without infection, nodes, cyanosis, clubbing. Skin: no rashes, no lesions, no ulcers, no subcutaneous nodules, induration. Psychiatric/Neuro: oriented to time, place, person, judgement normal, affect appropriate for age, insight intact, no focal deficits. Tests: labs reviewed, x-rays reviewed, review of old records completed, Discussed surgical options, risks, and possible complications with patient. Assessment/Plan 1. Iron deficiency anemia (D50.9: Iron deficiency anemia, unspecified) plan EGD and colonoscopy under anesthesia, informed consent obtained. 2. Abnormal PET scan of colon (R94.8: Abnormal results of function studies of other organs and systems) see # 1 3. GERD (gastroesophageal reflux disease) (K21.9: Gastro-esophageal reflux disease without esophagitis) see # 1 4. Personal history of colon cancer (Z85.038: Personal history of other malignant neoplasm of large intestine) see # 1 Follow-up No qualifying data available Problem List/Past Medical History Ongoing Abnormal PET scan of colon Anemia BMI 31.0-31.9,adult DDD (degenerative disc disease), lumbar Edema GERD (gastroesophageal reflux disease) History of colon cancer HTN (hypertension) Iron deficiency anemia Obesity Personal history of colon cancer Spondylolisthesis of lumbar region Thyroid nodule Historical No qualifying data Procedure/Surgical History Colonoscopy (03/10/2007), Biopsy of thyroid gland, Colonoscopy, Lumpectomy of left breast, Lumpectomy of left breast, Partial colectomy. Medications carvedilol 12.5 mg Tab, 12.5 mg= 1 tab(s), Oral, BID ferrous sulfate 325 mg oral enteric coated tablet, 325 mg= 1 tab(s), Oral, Daily hydrochlorothiazide 12.5 mg Tab, 12.5 mg= 1 tab(s), Oral, Daily losartan 50 mg Tab, 50 mg= 1 tab(s), Oral, Daily Allergies No Known Allergies No Known Medication Allergies Social History Alcohol - Denies Alcohol Use, 02/16/2022 Substance Abuse - Denies Substance Abuse, 02/16/2022 Tobacco Never (less than 100 in lifetime) Tobacco Use:. Never Smokeless Tobacco Use:., 02/04 (more content not included)... [facility] Comment on above: Result Comment: Elec tronically Signed By: DANNY HINDS, Tello Kwon\Date and Time Signed: 02/16/22 14:37 EDT 02-03-2022 Note HNO ID: [id number] Author: Joey Kruger MD Service: ? Author Type: Physician Type: Progress Notes Filed: 02/07/2022 12:04 AM Note Text: NAME: Maria InesRiana hall [facility] NO.: [id number] DATE OF SERVICE: February 03, 2022 Some elements in this clinic note that are critical to medical decision making have been carefully reviewed and included from a prior clinic note dated: January 25, 2022 Referring Provider: Rosita Schaffer CNP Additional Clinicians involved in Riana Garcia's care: Tello Carmona DIAGNOSIS: PET positive for: Uptake, IgM kappa light chain monoclonal gammopathy. ASSESSMENT: 76 year old woman with a history of colon cancer which she unfortunately has no real recollection or available history from the current accessible records. Work-up of back pain revealed some concerning vertebral lesions that then led to a PET scan demonstrating a long segment of hypermetabolism in the sigmoid colon. She is scheduled to undergo colonoscopy which I fully agree with but also will need records from [facility] with respect to both pathology and surgery. She is also scheduled to have a thyroid nodule biopsied. 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 PLAN: 1. Recommend cardiac workup for fatigue and dyspnea with mild exertion - Defer to PCP 2. Keep appointment with Dr. Carmona for Colonoscopy 3. Labs repeated in 4 weeks myeloma labs and [id number] 4. RTC in 6 weeks HPI: CASE HISTORY: 12/30/2021 PET/CT-Long segment of hypermetabolism of the sigmoid colon 12/16/2021 - Mammography BiRads 2 12/02/2021 MRI - difficulty walking and getting up from a chair.changes in bone suggestive of age related vs. Metastatic disease 11/04/2021 MRI L-spine without contrast: Multiple areas of rounded signal abnormality vertebral bodies could represent age-related changes but metastatic disease should be considered. Contrasted MRI recommended. Pre-2006 had colon cancer - partial R??colectomy and no need for chemotherapy Updated Visit, February 03, 2022: Riana 76 and returns for follow upunable to find any records of her colon cancer and she explains that it was perhaps as an inpatient in between 1990 and 1998. PET shows no indication of bony metastatic disease. Got thyroid biopsied yesterday. Gets really exhausted making breakfast and taking care of her sister. Suggestive of cardiac etiology. Almost can't make it up the stairs to lay down - get breathless. Initial Visit, January 25, 2022: Riana Garcia presents today Hematology and Oncology evaluation. She is a 76 year old female who has a history of colon cancer in 2006 but unfortunately does not know any of the details. In November 2021 she had an MRI of the L-spine for back pain and had signal changes suggestive of malignancy. She therefore had a contrasted MRI and subsequently had a PET/CT demonstrating a long segment of hypermetabolism in the sigmoid colon in addition to serologies notable for an IgM kappa light chain monoclonal gammopathy. She is scheduled to see Dr. Carmona for colonoscopy very soon. We will repeat laboratories today. REVIEW OF SYSTEMS Per HPI and otherwise negative by full review of organ systems. ECOG PERFORMANCE STATUS: 1 PHYSICAL EXAMINATION: Vitals: BP 159/81 Pulse 75 Temp (Src) 97.9 (Temporal) Resp 16 Ht 5' 4.567 (1.64m) Wt 178 lb 12.8 oz (81.1kg) SpO2 99% BMI 30.15 kg/(m2). Body surface area is 1.92 meters squared. Exam limited to gross visualization where appropriate due to COVID-19. Gen.: This is an age-appropriate patient in no acute distress. Head: Appears atraumatic with no visible lesions. Eyes: Pupils equally round and reactive to light, extraocular muscles are intact. Neck: Supple. Mouth: Masked. Respiratory: Appears to be respiring comfortably. Neurologic: Nonfocal to gross visualization. Alert and oriented ?3. Psychiatric: No evidence of inappropriate anxiety or depression. Skin: Visible areas of skin without rash, lesions, wounds or petechiae. ALLERGIES: ALLERGIES No Known Allergies MEDICATIONS: ferrous sulfate 325 mg (65 mg iron) tablet TAKE 1 TABLET BY MOUTH ONCE A DAY *MAY TURN STOOLS BLACK* losartan (COZAAR) 50 mg tablet Take 50 mg by mouth once daily. carvedilol (COREG) 12.5 mg tablet Take 1 tablet by mouth twice daily with meals. lisinopril (ZESTRIL, PRINIVIL) 20 mg tablet Take 1 tablet by mouth once daily. (Patient not taking: Reported on 01/25/2022) hydrochlorothiazide (HYDRODIU (more content not included)... [facility] 01-25-2022 Note HNO ID: [id number] Author: Joey Kruger MD Service: ? Author Type: Physician Type: Progress Notes Filed: 02/01/2022 8:13 PM Note Text: NAME: Riana Garcia NO.: [id number] DATE OF SERVICE: January 25, 2022 Referring Provider: Rosita Schaffer CNP Consultation requested by Rosita Schaffer for an opinion regarding Ms. Riana Garcia, and my final recommendations will be communicated back to the requesting physician by way of shared medical record or letter via [place] mail. Additional Clinicians involved in Riana Garcia's care: Tello Carmona DIAGNOSIS: PET positive for: Uptake, IgM kappa light chain monoclonal gammopathy. ASSESSMENT: 76 year old woman with a history of colon cancer which she unfortunately has no real recollection or available history from the current accessible records. Work-up of back pain revealed some concerning vertebral lesions that then led to a PET scan demonstrating a long segment of hypermetabolism in the sigmoid colon. She is scheduled to undergo colonoscopy which I fully agree with but also will need records from [facility] with respect to both pathology and surgery. She is also scheduled to have a thyroid nodule biopsied. 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 PLAN: 1. Need path and surgery records from colon cancer prior to 2006 - [facility] [place] 2. Labs drawn today 3. RTC in 10 days to discuss 4. Keep appointment for thyroid nodule biopsy HPI: CASE HISTORY: 12/30/2021 PET/CT-Long segment of hypermetabolism of the sigmoid colon 12/16/2021 - Mammography BiRads 2 12/02/2021 MRI - difficulty walking and getting up from a chair.changes in bone suggestive of age related vs. Metastatic disease 11/04/2021 MRI L-spine without contrast: Multiple areas of rounded signal abnormality vertebral bodies could represent age-related changes but metastatic disease should be considered. Contrasted MRI recommended. Pre-2006 had colon cancer - partial R??colectomy and no need for chemotherapy Initial Visit, January 25, 2022: Riana Garcia presents today Hematology and Oncology evaluation. She is a 76 year old female who has a history of colon cancer in 2006 but unfortunately does not know any of the details. In November 2021 she had an MRI of the L-spine for back pain and had signal changes suggestive of malignancy. She therefore had a contrasted MRI and subsequently had a PET/CT demonstrating a long segment of hypermetabolism in the sigmoid colon in addition to serologies notable for an IgM kappa light chain monoclonal gammopathy. She is scheduled to see Dr. Carmona for colonoscopy very soon. We will repeat laboratories today. REVIEW OF SYSTEMS Per HPI and otherwise negative by full review of organ systems. ECOG PERFORMANCE STATUS: 1 PHYSICAL EXAMINATION: Vitals: BP 152/79 Pulse 76 Temp (Src) 97.1 (Temporal) Resp 16 Ht 5' 4.567 (1.64m) Wt 179 lb (81.2kg) SpO2 98% BMI 30.19 kg/(m2). Body surface area is 1.92 meters squared. Exam limited to gross visualization where appropriate due to COVID-19. Gen.: This is an age-appropriate patient in no acute distress. Head: Appears atraumatic with no visible lesions. Eyes: Pupils equally round and reactive to light, extraocular muscles are intact. Neck: Supple. Mouth: Masked. Respiratory: Appears to be respiring comfortably. Neurologic: Nonfocal to gross visualization. Alert and oriented ?3. Psychiatric: No evidence of inappropriate anxiety or depression. Skin: Visible areas of skin without rash, lesions, wounds or petechiae. ALLERGIES: ALLERGIES No Known Allergies MEDICATIONS: ferrous sulfate 325 mg (65 mg iron) tablet TAKE 1 TABLET BY MOUTH ONCE A DAY *MAY TURN STOOLS BLACK* losartan (COZAAR) 50 mg tablet Take 50 mg by mouth once daily. carvedilol (COREG) 12.5 mg tablet Take 1 tablet by mouth twice daily with meals. hydrochlorothiazide (HYDRODIURIL, ESIDRIX) 25 mg tablet Take 1 tablet by mouth once daily. lisinopril (ZESTRIL, PRINIVIL) 20 mg tablet Take 1 tablet by mouth once daily. (Patient not taking: Reported on 01/25/2022) aspirin, enteric coated 81 mg EC tablet Take 81 mg by mouth once daily. (Patient not taking: Reported on 01/25/2022) LABORATORY VALUES: WBC (k/uL) Date Value 01/25/2022 8.43 RBC (m/uL) Date Value 01/25/2022 4.44 Hemoglobin (g/dL) Date Value 01/25/2022 11.5 Hematocrit (%) (more content not included)... [facility] 01-25-2022 Instructions Joey Kruger MD - 01/25/2022 3:34 PM EDT 1. Need path and surgery records from colon cancer prior to 2006 - [facility] [place] 2. Labs drawn today 3. RTC in 9 days to discuss 4. Keep appointment for thyroid nodule biopsy documented in this encounter [facility] 01-25-2022 History of Presen t illness Narrative Images from the original note were not included. NAME: Jose Riana VERENA NO.: [id number] DATE OF SERVICE: January 25, 2022 Referring Provider: Rosita Schaffer CNP Consultation requested by Rosita Schaffer for an opinion regarding Ms. Riana Garcia, and my final recommendations will be communicated back to the requesting physician by way of shared medical record or letter via US mail. Additional Clinicians involved in Riana Garcia's care: Tello Carmona DIAGNOSIS: PET positive for: Uptake, IgM kappa light chain monoclonal gammopathy. ASSESSMENT: 76 year old woman with a history of colon cancer which she unfortunately has no real recollection or available history from the current accessible records. Work-up of back pain revealed some concerning vertebral lesions that then led to a PET scan demonstrating a long segment of hypermetabolism in the sigmoid colon. She is scheduled to undergo colonoscopy which I fully agree with but also will need records from [facility] with respect to both pathology and surgery. She is also scheduled to have a thyroid nodule biopsied. 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 PLAN: 1. Need path and surgery records from colon cancer prior to 2006 - [facility] [place] 2. Labs drawn today 3. RTC in 10 days to discuss 4. Keep appointment for thyroid nodule biopsy HPI: CASE HISTORY: 12/30/2021 PET/CT-Long segment of hypermetabolism of the sigmoid colon 12/16/2021 - Mammography BiRads 2 12/02/2021 MRI - difficulty walking and getting up from a chair.changes in bone suggestive of age related vs. Metastatic disease 11/04/2021 MRI L-spine without contrast: Multiple areas of rounded signal abnormality vertebral bodies could represent age-related changes but metastatic disease should be considered. Contrasted MRI recommended. Pre-2006 had colon cancer - partial R??colectomy and no need for chemotherapy Initial Visit, January 25, 2022: Riana Garcia presents today Hematology and Oncology evaluation. She is a 76 year old female who has a history of colon cancer in 2006 but unfortunately does not know any of the details. In November 2021 she had an MRI of the L-spine for back pain and had signal changes suggestive of malignancy. She therefore had a contrasted MRI and subsequently had a PET/CT demonstrating a long segment of hypermetabolism in the sigmoid colon in addition to serologies notable for an IgM kappa light chain monoclonal gammopathy. She is scheduled to see Dr. Nill for colonoscopy very soon. We will repeat laboratories today. REVIEW OF SYSTEMS Per HPI and otherwise negative by full review of organ systems. ECOG PERFORMANCE STATUS: 1 PHYSICAL EXAMINATION: Vitals: BP 152/79 Pulse 76 Temp (Src) 97.1 (Temporal) Resp 16 Ht 5' 4.567 (1.64m) Wt 179 lb (81.2kg) SpO2 98% BMI 30.19 kg/(m^2). Body surface area is 1.92 meters squared. Exam limited to gross visualization where appropriate due to COVID-19. Gen.: This is an age-appropriate patient in no acute distress. Head: Appears atraumatic with no visible lesions. Eyes: Pupils equally round and reactive to light, extraocular muscles are intact. Neck: Supple. Mouth: Masked. Respiratory: Appears to be respiring comfortably. Neurologic: Nonfocal to gross visualization. Alert and oriented 3. Psychiatric: No evidence of inappropriate anxiety or depression. Skin: Visible areas of skin without rash, lesions, wounds or petechiae. ALLERGIES: ALLERGIES No Known Allergies MEDICATIONS: ferrous sulfate 325 mg (65 mg iron) tablet TAKE 1 TABLET BY MOUTH ONCE A DAY *MAY TURN STOOLS BLACK* losartan (COZAAR) 50 mg tablet Take 50 mg by mouth once daily. carvedilol (COREG) 12.5 mg tablet Take 1 tablet by mouth twice daily with meals. hydrochlorothiazide (HYDRODIURIL, ESIDRIX) 25 mg tablet Take 1 tablet by mouth once daily. lisinopril (ZESTRIL, PRINIVIL) 20 mg tablet Take 1 tablet by mouth once daily. (Patient not taking: Reported on 01/25/2022) aspirin, enteric coated 81 mg EC tablet Take 81 mg by mouth once daily. (Patient not taking: Reported on 01/25/2022) LABORATORY VALUES: WBC (k/uL) Date Value 01/25/2022 8.43 RBC (m/uL) Date Value 01/25/2022 4.44 Hemoglobin (g/dL) Date Value 01/25/2022 11.5 Hematocrit (%) Date Value 01/25/2022 36.7 MCV (fL) Date Value 01/25/2022 82.7 MCH (pg) Date Value 01/25/2022 25.9 (L) MCHC (g/dL) Date Value 01/25/2022 31.3 RDW-CV (%) Date Value 01/25/2022 13.8 Platelet Count (k/uL) Date Value 01/25/2022 199 MPV (fL) Date Value 01/25/2022 9.2 Glucose (mg/dL) Date Value 01/25/2022 97 BUN (mg/dL) Date Value 01/25/2022 27 (H) Creatinine (mg/dL) Date Value 01/25/2022 0.89 Sodium (mmol/L) Date Value 01/25/2022 141 Potassium (mmol/L) Date Value 01/25/2022 4.1 Chloride (mmol/L) Date Value 01/25/2022 104 CO2 (mmol/L) Date Value 01/25/2022 28 Protein, Total (g/dL) Date Value 01/25/2022 6.8 01/25/2022 6.7 Albumin (g/dL) Date Value 01/25/2022 4.1 Calcium, Total (mg/dL) Date Value 01/25/2022 9.5 Alkaline Phosphatase (U/L) Date Value 01/25/2022 93 Bilirubin, Total (mg/dL) Date Value 01/25/2022 0.2 AST (U/L) Date Value 01/25/2022 14 ALT (U/L) Date Value 01/25/2022 11 M-Protein Concentration (g/dL) Date Value 01/25/2022 0.25 DIAGNOSIS: (D47.2) MGUS (monoclonal gammopathy of unknown significance) (primary encounter diagnosis) Plan: B2 MICROGLOBULIN B, CBC + DIFF, COMP METABOLIC PANEL, LD LACTATE DEHYDRO, PHOSPHORUS INORGANIC, PROTEIN ELECTROPHORESIS SERUM W/INTERP, MONOCLONAL PROTEIN, SERUM (BLOOD), URIC ACID BLOOD, CALCIUM IONIZED BLOOD, KAPPA/LEONARD,FREE,SER PAST MEDICAL HISTORY Diagnosis Date Anemia Benign breast lumps Chest pain Colon cancer (HCC) DDD (degenerative disc disease), lumbar GERD (gastroesophageal reflux disease) Heart murmur HTN (hypertension) Thyroid nodule PAST SURGICAL HISTORY Procedure Laterality Date PAST SURGICAL HISTORY OF 1999 partial colon resection PAST SURGICAL HISTORY OF removal of breast lumps Social History Tobacco Use Smoking status: Never Passive exposure: Past Smokeless tobacco: Never Substance Use Topics Alcohol use: No Drug use: No FAMILY HISTORY Problem Relation Age of Onset Hypertension Mother Alzheimer's Disease Mother Cancer Father Bone Hypertension Father Prostate Cancer Father Lung Cancer Father Hypertension Sister Cancer Sister melanoma I spent a total of 60 minutes on the date of the service which included preparing to see the patient, [id number] patient care, completing clinical documentation, obtaining and/or reviewing separately obtained history, performing a medically appropriate examination, counseling and educating the patient/family/caregiver, ordering medications, tests, or procedures, communicating with other HCPs (not separately reported), and independently interpreting results (not separately reported). Joey Kruger MD, CPE Hematology and Oncology Services Provided at: [place], [place] CC: NGUYENROSITA Rutledge [address] [facility] [place] [address] Sary Holt MD [address] [facility] [place] [address] documented in this encounter [facility] 01-25-2022 Nurse Note Patient had a Covid booster Tuesday and her Left arm (at injections site) is red with a [place] around it, she wonders if it is an allergic reaction? Rajni Singh MA documented in this encounter [facility] Evaluation + Plan note No data available for this section General Surgery [place] Evaluation note Diagnosis MGUS (monoclonal gammopathy of unknown significance)- Primary Monoclonal paraproteinemia Malignant neoplasm of colon, unspecified part of colon (HCC) documented in this encounter [facility] Discharge instructions No data available for this section General [facility] [place] Progress note No data available for this section [facility] [place] Summary Purpose Family History No Family History Records FoundNo Family History Records FoundNo Family History Records FoundNo Family History Records Found Advance Directives No Advanced Directives Records FoundNo Advanced Directives Records FoundNo Advanced Directives Records FoundNo Advanced Directives Records Found Additional Source Comments INFORMATION SOURCE (unrecogn ized section and content) DATE CREATED AUTHOR 01/05/[address] [facility] DATE CREATED AUTHOR AUTHOR'S ORGANIZ ATION 02/06/2022 [facility] DATE CREATED AUTHOR AUTHOR'S ORGANIZ ATION [facility]/2022 [facility] DATE CREATED AUTHOR AUTHOR'S ORGANIZ ATION 04/19/2022 [facility] Source Comments (unrecognize d section and content) In the event this informatio n is protected by the Federal Confidentiality of Alcohol and Drug Abuse Patient Records regulations: The Federal rules restrict any use of the information to criminally investigate or prosecute any alcohol or drug abuse patient.[facility] the event this information is protected by the Federal Confidentiality of Alcohol and Drug Abuse Patient Records regulations: The Federal rules restrict any use of the information to criminally investigate or prosecute any alcohol or drug abuse patient.[facility] Care Teams (unrecognized sec tion and content) [employer] Relationship Specialty Start Date End Date Sary Holt MD [address] [place] [address] PCP - General Family Practice 09/27/13 [employer] Relationship Specialty Start Date End Date Sary Holt MD [address] [place] [address] PCP - General Family Practice 09/27/13 Reason for Visit (unrecogniz ed section and content) Reason Comments Abnormal Protein electrophoresis New pat ient consult FOR RECORDS PERTAINING TO PATIENTS WHO ARE OR HAVE BEEN ENROLLED IN A CHEMICAL DEPENDENCY/SUBSTANCEABUSE PROGRAM, SOME INFORMATION MAY BE OMITTED. This clinical summary was aggregated from multiple sources. Caution should be exercised in using it in the provision of clinical care. This summary normalizes information from multiple sources, and as a consequence, information in this document may materially change the coding, format and clinical context of patient data. In addition, data may be omitted in some cases. CLINICAL DECISIONS SHOULD BE BASED ON THE PRIMARY CLINICAL RECORDS. [facility] [employer] [facility]. provides no warranty or guarantee of the accuracy or completeness of information in this document.
--- NOTE | 2023-06-03 15:00 | ED_ITS ---
HPI - Abdominal Pain General Chief Complaint: Abdominal Pain Stated Complaint: CONSTIPATION Time Seen by Provider: 06/03/23 15:00 Source: patient Mode of arrival: walk-in Limitations: no limitations History of Present Illness HPI narrative: this patient's here for abdominal pain. I saw her yesterday and she was admitted. She was to be seen by surgery this morning for consultation. They put an NG tube in her last night and hopeful that this would resolve medically. She did have a small bowel obstruction. Apparently she had family members at home that she had to take care of so she left against medical advice went home took care of the domestic situation now she is back today. Her vital signs are stable she is afebrile. Additionally she says that she's vomited approximately five times smaller amounts of fluid since she went home. She's been taking sips of water but not eating anything. Should the pain did keep her up last night. Apparently she left before the hospitalist or the surgeon could see or hear yesterday afternoon. Related Data Home Medications Medication Instructions Recorded Confirmed carbidopa 25 mg-levodopa 100 mg 0.5 tab PO TID 06/02/23 06/02/23 tablet carvedilol 12.5 mg tablet 12.5 mg PO BID 06/02/23 06/02/23 ferrous sulfate 325 mg (65 mg 325 mg PO QDAY 06/02/23 06/02/23 iron) tablet hydrochlorothiazide 12.5 mg tablet 12.5 mg PO DAILY 06/02/23 06/02/23 losartan 50 mg tablet 50 mg PO QDAY 06/02/23 06/02/23 Allergies Allergy/AdvReac Type Severity Reaction Status Date / Time No Known Drug Allergies Allergy Verified 06/03/23 14:50 Exam Narrative Exam Narrative: patient's awake alert. Pleasant and cooperative moving about freely with no hesitation. She appears more comfortable than yesterday. Examination the abdomen in the supine position she does have all sounds throughout but denies high-pitched or tinkling is a were yesterday. She does not have any discomfort to deep palpation like she did yesterday. The patient's breast examination was noncontributory and she has no other complaints. Constitutional Vital Signs, click to edit/add: Last Vital Signs Temp 97.7 F 06/03/23 14:50 Pulse 74 06/03/23 16:47 Resp 18 06/03/23 16:47 BP 133/70 06/03/23 16:47 Pulse Ox 98 06/03/23 16:47 O2 Del Method Room Air 06/03/23 14:50 Course Vital Signs Vital signs: Vital Signs Temperature 97.7 F 06/03/23 14:50 Pulse Rate 79 06/03/23 14:50 Respiratory Rate 18 06/03/23 14:50 Blood Pressure 117/72 06/03/23 14:50 Pulse Oximetry 98 06/03/23 14:50 Oxygen Delivery Method Room Air 06/03/23 14:50 Temperature 97.7 F 06/03/23 14:50 Pulse Rate 74 06/03/23 16:47 Respiratory Rate 18 06/03/23 16:47 Blood Pressure 133/70 06/03/23 16:47 Pulse Oximetry 98 06/03/23 16:47 Oxygen Delivery Method Room Air 06/03/23 14:50 MDM - Abdominal Pain MDM Narrative Medical decision making narrative: abdominal series x-ray read by the radiologist does not show any obstructive pattern on the abdominal series x-ray. Her white blood cell count is gone up just a little bit. Patient states that her pain is better than it was yesterday but she's had this discomfort for nearly 2 months and I suspect that she's had intermittent obstructions. I spoke with the consulting surgeon and he will be came in today to see her but known to notify that the patient actually left the hospital yesterday. He was given advised the patient to have a small bowel series x-ray. I'll discuss this with the hospitalist and to readmit her Lab Data Labs: Lab Results 06/03/23 Range/Units 16:34 WBC 13.3 H (4.0-11.0) 10^3/uL RBC 4.32 (4.20-5.40) 10^6/uL Hgb 11.5 L (12.0-16.0) g/dL Hct 35.9 L (36.0-48.0) % MCV 83.1 (81.0-99.0) fL MCH 26.6 L (26.7-34.0) pg MCHC 32.0 (29.9-35.2) g/dL RDW 12.8 (11.0-15.0) % Plt Count 219 (150-450) 10^3/uL MPV 9.9 (9.5-13.5) fL Neut % (Auto) 77.1 H (43.0-75.0) % Lymph % (Auto) 13.8 L (20.5-60.0) % [place] % (Auto) 8.4 (1.7-12.0) % Eos % (Auto) 0.2 L (0.9-7.0) % Baso % (Auto) 0.2 (0.2-2.0) % Neut # (Auto) 10.2 H (1.4-6.5) 10^3/uL Lymph # (Auto) 1.8 (1.2-3.8) 10^3/uL [place] # (Auto) 1.1 H (0.3-0.8) 10^3/uL Eos # (Auto) 0.0 (0.0-0.7) 10^3/uL Baso # (Auto) 0.0 (0.0-0.1) 10^3/uL Abs Immat Gran (auto) 0.04 H (0.00-0.03) 10^3/uL Imm/Tot Granulo (auto) 0.3 (0.0-0.5) % Lactate 1.2 (0.4-2.0) mmol/L Discharge Plan Discharge Chief Complaint: Abdominal Pain Clinical Impression: Bowel obstruction Patient Disposition: Admitted as Observation Time of Disposition Decision: 17:35 Prescriptions / Home Meds: No Action losartan 50 mg tablet 50 mg PO QDAY ferrous sulfate 325 mg (65 mg iron) tablet 325 mg PO QDAY carbidopa-levodopa 25-100 mg tablet 0.5 tab PO TID hydrochlorothiazide 12.5 mg tablet 12.5 mg PO DAILY carvedilol 12.5 mg tablet 12.5 mg PO BID Referrals: Rosita Schaffer NP [Primary Care Provider] - 1 week
--- NOTE | 2023-06-03 15:39 | XR_ITS ---
[place] [id number] Patient Name: RIANA QUILES MRN: [id number] date: 1945 Sex: F Assigned Patient Location: ER Current Patient Location: ER Accession/Order Number: [id number] Exam Date: 06/03/2023 16:18 Report Date: 06/03/2023 17:11 At the request of: [facility] Procedure: XR acute abdomen series EXAM: XR acute abdomen series HISTORY: Abdominal pain COMPARISON: X-rays and abdomen and pelvic CT 06/02/2023 TECHNIQUE: PA chest and 3 views of the abdomen FINDINGS: The bowel gas pattern is nonobstructed. No free intraperitoneal air or abdominal calcification. The lung parenchyma is free of consolidation or infiltrate. No pneumothorax or pleural effusion. The cardiac, mediastinal and hilar contours are unremarkable. The heart is not enlarged. The osseous structures exhibit no acute abnormality. XR/XR acute abdomen series IMPRESSION: No visualized irregularity. Electronically authenticated by: BIRGIT CHAVARRIA Date: 06/03/2023 17:11
[2023-06-03 17:04] LABS: Basophils Percent Auto 0.2 % (0.2-2.0); Eosinophils Percent Auto 0.2 % (0.9-7.0); Hematocrit 35.9 % (36.0-48.0); Hemoglobin 11.5 g/dL (12.0-16.0); Immature Granulocytes Abs Auto 0.04 10^3/uL (0.00-0.03); Immature Granulocytes Pct Auto 0.3 % (0.0-0.5); Lymphocytes Absolute Auto 1.8 10^3/uL (1.2-3.8); Lymphocytes Percent Auto 13.8 % (20.5-60.0); Mean Corpuscular Hemoglobin 26.6 pg (26.7-34.0); Mean Corpuscular Volume 83.1 fL (81.0-99.0); Mean Platelet Volume 9.9 fL (9.5-13.5); Monocytes Absolute Auto 1.1 10^3/uL (0.3-0.8); Monocytes Percent Auto 8.4 % (1.7-12.0); Neutrophils Absolute Auto 10.2 10^3/uL (1.4-6.5); Neutrophils Percent Auto 77.1 % (43.0-75.0); Platelet Count 219 10^3/uL (150-450); Red Blood Count 4.32 10^6/uL (4.20-5.40); Red Cell Distribution Width 12.8 % (11.0-15.0); White Blood Count 13.3 10^3/uL (4.0-11.0)
[2023-06-03 17:19] LABS: Lactate/Lactic Acid 1.2 mmol/L (0.4-2.0)
--- OUTSIDE RECORDS SUMMARY | 2023-06-03 20:08 | XMS_ITS | CCD ---
Author Name Unknown Address [address] [place] [address] Organization [facility] Care Team Providers Care Insulation Machine Operator Name Role Phone Jonathon HINDS, Sary Pérez Primary Care Provider ROSITA SCHAFFER Primary Care Physician AICHHOLZ, ADOPTION COORDINATOR ROSITA Consulting Unavailable AICHHOLZ, ADOPTION COORDINATOR ROSITA Primary Care Unavailable AICHHOLZ, ADOPTION COORDINATOR ROSITA Attending Unavailable AICHHOLZ, ADOPTION COORDINATOR ROSITA Admitting Unavailable DR BIRGIT HAMILTON V Consulting Unavailable AICHHOLZ, ADOPTION COORDINATOR ROSITA Primary Care Unavailable AICHHOLZ, ADOPTION COORDINATOR ROSITA Attending Unavailable AICHHOLZ, ADOPTION COORDINATOR ROSITA Admitting Unavailable AICHHOLZ, ADOPTION COORDINATOR ROSITA Consulting Unavailable NILL, DR JAVED Consulting Unavailable AICHHOLZ, ADOPTION COORDINATOR ROSITA Primary Care Unavailable NILL, DR JAVED Attending Unavailable DR TELLO CARMONA Admitting Unavailable AICHHOLZ, ADOPTION COORDINATOR ROSITA Consulting Unavailable JR, DR POWER Primary Care Unavailable AICHHOLZ, ADOPTION COORDINATOR ROSITA Attending Unavailable AICHHOLZ, ADOPTION COORDINATOR ROSITA Admitting Unavailable DR CARMEL GOVEA Consulting Unavailable AICHHOLZ, ADOPTION COORDINATOR ROSITA Consulting Unavailable AICHHOLZ, ADOPTION COORDINATOR ROSITA Primary Care Unavailable AICHHOLZ, ADOPTION COORDINATOR ROSITA Attending Unavailable AICHHOLZ, ADOPTION COORDINATOR ROSITA Admitting Unavailable AICHHOLZ, ADOPTION COORDINATOR ROSITA Consulting Unavailable AICHHOLZ, ADOPTION COORDINATOR ROSITA Primary Care Unavailable AICHHOLZ, ADOPTION COORDINATOR ROSITA Attending Unavailable AICHHOLZ, ADOPTION COORDINATOR ROSITA Admitting Unavailable DR BIRGIT HAMILTON V Consulting Unavailable AICHHOLZ, ADOPTION COORDINATOR ROSITA Primary Care Unavailable AICHHOLZ, ADOPTION COORDINATOR ROSITA Attending Unavailable AICHHOLZ, ADOPTION COORDINATOR ROSITA Admitting Unavailable AICHHOLZ, ADOPTION COORDINATOR ROSITA Consulting Unavailable DR TELLO CARMONA Consulting Unavailable AICHHOLZ, ADOPTION COORDINATOR ROSITA Primary Care Unavailable NILJa, DR JAVED Attending Unavailable NILL, DR JAVED Admitting Unavailable SUAD DURNA Consulting Unavailable JRSCIELO Consulting Unavailable AICHHOLZ, ADOPTION COORDINATOR ROSITA Consulting Unavailable AICHHOLZ, ADOPTION COORDINATOR ROSITA Primary Care Unavailable AICHHOLZ, ADOPTION COORDINATOR ROSITA Attending Unavailable AICHHOLZ, ADOPTION COORDINATOR ROSITA Admitting Unavailable ZIEBER, DR CARMEL Bee Consulting Unavailable HELEN, CIELO VALENTINE Consulting Unavailable [facility] [place] Primary Care Unavailable CIELO CERVANTES Attending Unavailable HELEN, CIELO VALENTINE Admitting Unavailable WEST, DR BIRGIT Aaron Consulting Unavailable AICHHOLZ, ADOPTION COORDINATOR ROSITA Primary Care Unavailable AICHHOLZ, ADOPTION COORDINATOR ROSITA Attending Unavailable AICHHOLZ, ADOPTION COORDINATOR ROSITA Admitting Unavailable AICHHOLZ, ADOPTION COORDINATOR ROSITA Consulting Unavailable AICHHOLZ, ADOPTION COORDINATOR ROSITA Consulting Unavailable AICHHOLZ, ADOPTION COORDINATOR ROSITA Primary Care Unavailable AICHHOLZ, ADOPTION COORDINATOR ROSITA Attending Unavailable AICHHOLZ, ADOPTION COORDINATOR ROSITA Admitting Unavailable ZIEBER, DR CARMEL Bee Consulting Unavailable WEST, DR BIRGIT Aaron Consulting Unavailable AICHHOLZ, ADOPTION COORDINATOR ROSITA Primary Care Unavailable AICHHOLZ, ADOPTION COORDINATOR ROSITA Attending Unavailable AICHHOLZ, ADOPTION COORDINATOR ROSITA Admitting Unavailable AICHHOLZ, ADOPTION COORDINATOR ROSITA Consulting Unavailable NILL, Tello Bee Attending Unavailable AICHHOLZ, ROSITA ROSITA J Referring Unavailabl e DANNY, Tello Bee Attending Unavailable NILL, Tello Bee Attending Unavailable NILL, Tello Bee Attending Unavailable Allergies Allergy Classification Reported Allergen(s) Allergy Type Date of Onset Reaction(s) Facility (1 source) No Known Medication Allergies; Translations: [No Known Medication Allergies] Propensity to adverse reactions (disorder) [facility] Repository Medications Current Medications Medication Drug [...] Primary malignant neoplasm of prostate: Father. Normal [facility] Comment on above: Result Comment: Elec [...] Spondylolisthesis of lumbar region Thyroid nodule Normal [facility] Reminderson 03-31-2022 Reminders - From: Yolette Cordero LPN To: N - Clinical; Sent: 03/31/2022 15:07:34 EDT Show up: 02/09/2032 07:00:00 EDT Subject: colonoscopy recall Due Date/Time: 03/10/2032 07:00:00 EDT Reminder/Recall Patient is due for screening colonoscopy 03/10/2032. Normal [facility] Outside Colonoscopyon 2021 Outside Colonoscopy [id number]#1.00CD:127 Normal [facility] Pathology Noteon 03-12-2022 Pathology Note [id number]#1.00CD:127 Normal [facility] Consultation Noteon 03-10-20 Consultation Note [id number]#1.00CD:127 Normal [facility] Lab Reportson 03-08-2022 Lab Reports [id number]#1.00CD:127 Normal [facility] Covid-19 PCR (CVDTB)on SARS-CoV-2 (COVID-19) RNA ROBBIN+probe Ql (Unsp spec) Not detected Normal NOT DETECTED [facility] Comment on above: Result Comment: This test is not yet approved or cleared by the [place] FDA. When there are no FDA-approved or cleared tests available, and other criteria are met, FDA can make tests available under an emergency access mechanism called an Emergency Use Authorization (EUA). The EUA for this test is supported by the Pipe Organ Mechanic Apprentice of Health and Human Service's (HHS's) declaration [...] consistent with SARS-CoV-2. Performed By: #### C [facility] #### [facility] [address] [place] [address] Dr. Darius Zepeda Physician Orderon 02-17-2022 Physician Order [id number]#1.00CD:127 Normal [facility] Ambulatory Visit Summaryon 0 02-16-2022 Ambulatory [...] Spondylolisthesis of lumbar region Thyroid nodule Normal [facility] US THYROID FN ASP BXon 02-12 US THYROID FN ASP BX Begin Addendum #1 COLLECTED DATE/TIME: 02/02/2022 12:58 EDT Final Diagnosis Report for [facility] [place] (A/B) LEFT THYROID SUPERIOR NODULE, ULTRASOUND-GUIDED [...] (FNA). 2. Pathology results are pending. Normal [facility] CNOVSPon 02-03-2022 CNOVSP Visit (SP) Office (H EMASA) RIANA GARCIA ([id number]) 1945 F Date Time Provider Department 02/03/22 2:45 PM JOEY KRUGER During your visit today, we recorded the following information about you: Temperature Pulse Respiration Blood pressure 97.9 degrees 75/minute 16/minute 159/81 Weight Height 81.1 kg 1.64 m Joey Kruger MD 02/07/2022 12:04 AM Signed NAME: Riana Garcia CLINIC NO.: [id number] DATE OF SERVICE: February 03, 2022 Some [...] with but also will need records from [facility] with respect to both pathology and [...] TURN ST (more content not included)... Normal [facility] B2 MICROGLOBULIN Bon 022 Eqye-1-Yekcswtihpm in [Mass/Vol] 2.9 ug/mL <3.1 mg/L [facility] B2 Microglob SerPl-mCncon Nepe-5-Erouzqrapzl in [Mass/Vol] 2.9 ug/mL Normal <3.1 [facility] Comment on above: Order Comment: Ludy phillips Type: BLOOD SPECIMEN Ordering Facility: [facility] Address: [address] [place] [address] Result Comment: Beta -2 Microglobulin test is performed using the [employer] immunoturbidimetric method. Results obtained with different methods or kits cannot be used interchangeably. Performed By: #### 3 084-1, 85888-0, 2532-0, 2777-1 #### [facility] CLIA [id number] [address] [place], [place] [address] CBC W Auto Differential pane l (Bld)on 01-25-2022 Basophils (Bld) [#/Vol] 0.04 10*3/uL Normal <0.11 [facility] Comment on above: Order Comment: Ludy phillips Type: BLOOD SPECIMEN Ordering Facility: [facility] Address: [address] [place] [address] Performed By: #### 5 7021-8 #### [facility] CLIA [id number] [address] [place] [address] 86654 Basophils/100 WBC (Bld) 0.5 % Normal [facility] Comment on above: Order Comment: Ludy phillips Type: BLOOD SPECIMEN Ordering Facility: [facility] Address: [address] [place] [address] Performed By: #### 5 7021-8 #### [facility] CLIA [id number] [address] [place] [address] 47144 Differential cell count method Nom (Bld) Auto Normal [facility] Comment on above: Order Comment: Speci men Type: BLOOD SPECIMEN Ordering Facility: [facility] Address: [address] [place], [place] [address] Performed By: #### 5 7021-8 #### [facility] CLIA [id number] [address] [place] [address] 98955 Eosinophils (Bld) [#/Vol] 0.16 10*3/uL Normal <0.46 [facility] Comment on above: Order Comment: Speci men Type: BLOOD SPECIMEN Ordering Facility: [facility] Address: [address] [place], [place] [address] Performed By: #### 5 7021-8 #### [facility] CLIA [id number] [address] [place] [address] 15167 Eosinophils/100 WBC (Bld) 1.9 % Normal [facility] Comment on above: Order Comment: Speci men Type: BLOOD SPECIMEN Ordering Facility: [facility] Address: [address] [place] [address] Performed By: #### 5 7021-8 #### [facility] CLIA [id number] [address] [place] [address] 60689 Erythrocyte distribution width (RBC) [Ratio] 13.8 % Normal 11.5-15.0 [facility] Comment on above: Order Comment: Speci men Type: BLOOD SPECIMEN Ordering Facility: [facility] Address: [address] [place], [place] [address] Performed By: #### 5 7021-8 #### [facility] CLIA [id number] [address] [place] [address] 05874 Hematocrit (Bld) [Volume fraction] 36.7 % Normal 36.0-46.0 [facility] Comment on above: Order Comment: Speci men Type: BLOOD SPECIMEN Ordering Facility: [facility] Address: [address] [place], [place] [address] Performed By: #### 5 7021-8 #### [facility] CLIA [id number] [address] [place] [address] Hemoglobin (Bld) [Mass/Vol] 11.5 g/dL Normal 11.5-15.5 [facility] Comment on above: Order Comment: Speci men Type: BLOOD SPECIMEN Ordering Facility: [facility] Address: [address] [place] [address] Performed By: #### 5 7021-8 #### [facility] CLIA [id number] [address] [place] [address] IMMATURE GRAN % 0.4 % Normal [facility] Comment on above: Order Comment: Speci men Type: BLOOD SPECIMEN Ordering Facility: [facility] Address: [address] [place] [address] Performed By: #### 5 7021-8 #### [facility] CLIA [id number] [address] [place] [address]753 IMMATURE GRAN ABS 0.03 k/uL Normal <0.10 [facility] Comment on above: Order Comment: Speci men Type: BLOOD SPECIMEN Ordering Facility: [facility] Address: [address] [place] [address] Performed By: #### 5 7021-8 #### [facility] CLIA [id number] [address] [place] [address]57 Lymphocytes (Bld) [#/Vol] 2.10 10*3/uL Normal 1.00-4.00 [facility] Comment on above: Order Comment: Speci men Type: BLOOD SPECIMEN Ordering Facility: [facility] Address: [address] [place] [address] Performed By: #### 5 7021-8 #### [facility] CLIA [id number] [address] [place] [address] 40668 Lymphocytes/100 WBC (Bld) 24.9 % Normal [facility] Comment on above: Order Comment: Speci men Type: BLOOD SPECIMEN Ordering Facility: [facility] Address: [address] [place] [address] Performed By: #### 5 7021-8 #### [facility] CLIA [id number] [address] [place] [address] 36745 MCH (RBC) [Entitic mass] 25.9 pg Low 26.0-34.0 [facility] Comment on above: Order Comment: Speci men Type: BLOOD SPECIMEN Ordering Facility: [facility] Address: [address] [place] [address] Performed By: #### 5 7021-8 #### [facility] CLIA [id number] [address] [place] [address] 63521 MCHC (RBC) [Mass/Vol] 31.3 g/dL Normal 30.5-36.0 [facility] Comment on above: Order Comment: Speci men Type: BLOOD SPECIMEN Ordering Facility: [facility] Address: [address] [place] [address] Performed By: #### 5 7021-8 #### [facility] CLIA [id number] [address] [place] [address] 24176 MCV (RBC) [Entitic vol] 82.7 fL Normal 80.0-100.0 [facility] Comment on above: Order Comment: Speci men Type: BLOOD SPECIMEN Ordering Facility: [facility] Address: [address] [place] [address] Performed By: #### 5 7021-8 #### [facility] CLIA [id number] [address] [place] [address] 82716 Monocytes (Bld) [#/Vol] 0.84 10*3/uL Normal <0.87 [facility] Comment on above: Order Comment: Speci men Type: BLOOD SPECIMEN Ordering Facility: [facility] Address: [address] [place] [address] Performed By: #### 5 7021-8 #### [facility] CLIA [id number] [address] [place] [address] 77278 Monocytes/100 WBC (Bld) 10.0 % Normal [facility] Comment on above: Order Comment: Speci men Type: BLOOD SPECIMEN Ordering Facility: [facility] Address: [address] Performed By: #### 5 7021-8 #### [facility] CLIA [id number] [address] [place] [address] 96305 Neutrophils (Bld) [#/Vol] 5.26 10*3/uL Normal 1.45-7.50 [facility] Comment on above: Order Comment: Speci men Type: BLOOD SPECIMEN Ordering Facility: [facility] Address: [address] [place], [place] [address] Performed By: #### 5 7021-8 #### [facility] CLIA [id number] [address] [place] [address] 36607 Neutrophils/100 WBC (Bld) 62.3 % Normal [facility] Comment on above: Order Comment: Speci men Type: BLOOD SPECIMEN Ordering Facility: [facility] Address: [address] [place], [place] [address] Performed By: #### 5 7021-8 #### [facility] CLIA [id number] [address] [place] [address] 89393 Nucleated RBC (Bld) [#/Vol] 10*3/uL Normal <0.01 [facility] Comment on above: Order Comment: Speci men Type: BLOOD SPECIMEN Ordering Facility: [facility] Address: [address] [place], [place] [address] Performed By: #### 5 7021-8 #### [facility] CLIA [id number] [address] [place] [address] 27064 Nucleated RBC/100 WBC (Bld) [Ratio] 0.0 /100 WBC Normal [facility] Comment on above: Order Comment: Speci men Type: BLOOD SPECIMEN Ordering Facility: [facility] Address: [address] [place], [place] [address] Performed By: #### 5 7021-8 #### [facility] CLIA [id number] [address] [place] [address] 99434 Platelet mean volume (Bld) [Entitic vol] 9.2 fL Normal 9.0-12.7 [facility] Comment on above: Order Comment: Speci men Type: BLOOD SPECIMEN Ordering Facility: [facility] Address: [address] [place] [address] Performed By: #### 5 7021-8 #### [facility] CLIA [id number] [address] [place] [address] 07185 Platelets (Bld) [#/Vol] 199 10*3/uL Normal 150-400 [facility] Comment on above: Order Comment: Speci men Type: BLOOD SPECIMEN Ordering Facility: [facility] Address: [address] [place] [address] Performed By: #### 5 7021-8 #### [facility] CLIA [id number] [address] [place] [address] 38354 RBC (Bld) [#/Vol] 4.44 10*6/uL Normal 3.90-5.20 [facility] Comment on above: Order Comment: Speci men Type: BLOOD SPECIMEN Ordering Facility: [facility] Address: [address] [place] [address] Performed By: #### 5 7021-8 #### [facility] CLIA [id number] [address] [place] [address] 42417 WBC (Bld) [#/Vol] 8.43 10*3/uL Normal 3.70-11.00 [facility] Comment on above: Order Comment: Speci men Type: BLOOD SPECIMEN Ordering Facility: [facility] Address: [address] [place] [address] Performed By: #### 5 7021-8 #### [facility] CLIA [id number] [address] [place] [address] 68744 Abs Immature Gran 0.03 k/uL <0.10 k/uL [facility] Basophils (Bld) [#/Vol] 0.04 10*3/uL <0.11 k/uL [facility] Basophils/100 WBC (Bld) 0.5 % [facility] Differential cell count method Nom (Bld) Auto [facility] Eosinophils (Bld) [#/Vol] 0.16 10*3/uL <0.46 k/uL [facility] Eosinophils/100 WBC (Bld) 1.9 % [facility] Erythrocyte distribution width (RBC) [Ratio] 13.8 % 11.5 - 15.0 % [facility] Hematocrit (Bld) [Volume fraction] 36.7 % 36.0 - 46.0 % [facility] Hemoglobin (Bld) [Mass/Vol] 11.5 g/dL 11.5 - 15.5 g/dL [facility] Immature Gran % 0.4 % [facility] Lymphocytes (Bld) [#/Vol] 2.10 10*3/uL 1.00 - 4.00 k/uL [facility] Lymphocytes/100 WBC (Bld) 24.9 % [facility] MCH (RBC) [Entitic mass] 25.9 pg Low 26.0 - 34.0 pg [facility] MCHC (RBC) [Mass/Vol] 31.3 g/dL 30.5 - 36.0 g/dL [facility] MCV (RBC) [Entitic vol] 82.7 fL 80.0 - 100.0 fL [facility] Monocytes (Bld) [#/Vol] 0.84 10*3/uL <0.87 k/uL [facility] Monocytes/100 WBC (Bld) 10.0 % [facility] Neutrophils (Bld) [#/Vol] 5.26 10*3/uL 1.45 - 7.50 k/uL [facility] Neutrophils/100 WBC (Bld) 62.3 % [facility] Nucleated RBC (Bld) [#/Vol] <0.01 k/uL [facility] Nucleated RBC/100 WBC (Bld) [Ratio] 0.0 /100 WBC [facility] Platelet mean volume (Bld) [Entitic vol] 9.2 fL 9.0 - 12.7 fL [facility] Platelets (Bld) [#/Vol] 199 10*3/uL 150 - 400 k/uL [facility] RBC (Bld) [#/Vol] 4.44 10*6/uL 3.90 - 5.2 0 m/uL [facility] WBC (Bld) [#/Vol] 8.43 10*3/uL 3.70 - 11. 00 k/uL [facility] CNOVSPon 01-25-2022 CNOVSP Visit (SP) Office (H EMASA) RIANA GARCIA ([id number]) 1945 F Date Time Provider Department 01/25/22 3:00 PM JOEY KRUGER During your visit today, we recorded the following information about you: Temperature Pulse Respiration Blood pressure 97.1 degrees 76/minute 16/minute 152/79 Weight Height 81.2 kg 1.64 m Rajni Singh MA 01/25/2022 3:14 PM Signed Patient had a Covid booster Tuesday and her Left arm (at injections site) is red with a muckleshoot around it, she wonders if it is an allergic reaction? LINDSEY Cartwright MD 02/01/2022 8:13 PM Signed NAME: Riana Garcia [facility] NO.: [id number] DATE OF SERVICE: January 25, 2022 Referring [...] with but also will need records from [facility] with respect to both pathology and surgery. She is also scheduled to have a thyroid nodule biopsied. 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 PLAN: 1. Need path and surgery [place] [facility] [place] 2. Labs drawn today [...] mg tabl (more content not included)... Normal [facility] Calcium.ionized [Moles/Vol]o n 01-25-2022 Calcium.ionized (Bld) [Mass/Vol] 1.22 mmol/L 1.08 - 1.30 mmol/L [facility] Calcium.ionized adjusted to pH 7.4 (Bld) [Moles/Vol] 1.22 mmol/L 1.08 - 1.30 mmol/L [facility] Calcium.ionized (Bld) [Mass/Vol] 1.22 mmol/L Normal 1.08-1.30 [facility] Comment on above: Order Comment: Speci men Type: BLOOD SPECIMEN Ordering Facility[facility] Address: [address] [place] [address] Performed By: #### 3 084-1, 46547-1, 2532-0, 2777-1 #### [facility] CLIA [id number] [address] [place] [address] Calcium.ionized adjusted to pH 7.4 (Bld) [Moles/Vol] 1.22 mmol/L Normal 1.08-1.30 [facility] Comment on above: Order Comment: Speci men Type: BLOOD SPECIMEN Ordering Facility: [facility] Address: [address] [place] [address] Performed By: #### 3 084-1, 17263-2, 2532-0, 277-1 #### [facility] CLIA [id number] [address] [place] [address] Comprehensive metabolic 2000 panelon 01-25-2022 Albumin [Mass/Vol] 4.1 g/dL Normal 3.9-4.9 [facility] Comment on above: Order Comment: Speci men Type: BLOOD SPECIMEN Ordering Facility: [facility] Address: [address] [place] [address] Performed By: #### 3 084-1, 86257-3, 2532-0, 2777-1 #### [facility] CLIA [id number] [address] [place] [address] ALP [Catalytic activity/Vol] 93 U/L Normal 34-123 [facility] Comment on above: Order Comment: Speci men Type: BLOOD SPECIMEN Ordering Facility: [facility] Address: [address] [place] [address] Performed By: #### 3 084-1, 81145-0, 2532-0, 2777-1 #### [facility] CLIA [id number] [address] [place] [address] 04339 ALT [Catalytic activity/Vol] 11 U/L Normal 7-38 [facility] Comment on above: Order Comment: Speci men Type: BLOOD SPECIMEN Ordering Facility: [facility] Address: [address] [place] [address] Performed By: #### 3 084-1, 73073-4, 2532-0, 2777-1 #### [facility] CLIA [id number] [address] [place] [address] 48064 Anion gap [Moles/Vol] 9 mmol/L Normal 9-18 [facility] Comment on above: Order Comment: Speci men Type: BLOOD SPECIMEN Ordering Facility: [facility] Address: [address] [place] [address] Performed By: #### 3 084-1, 96014-5, 2532-0, 2777-1 #### [facility] CLIA [id number] [address] [place] [address] 33411 AST [Catalytic activity/Vol] 14 U/L Normal 13-35 [facility] Comment on above: Order Comment: Speci men Type: BLOOD SPECIMEN Ordering Facility: [facility] Address: [address] [place] [address] Performed By: #### 3 084-1, 79364-9, 2532-0, 2777-1 #### [facility] CLIA [id number] [address] [place] [address] 79116 Bilirubin [Mass/Vol] 0.2 mg/dL Normal 0.2-1.3 [facility] Comment on above: Order Comment: Speci men Type: BLOOD SPECIMEN Ordering Facility: [facility] Address: [address] [place] [address] Performed By: #### 3 084-1, 74310-3, 2532-0, 2776-1 #### [facility] CLIA [id number] [address] [place] [address] 61584 Calcium [Mass/Vol] 9.5 mg/dL Normal 8.5-10.2 [facility] Comment on above: Order Comment: Speci men Type: BLOOD SPECIMEN Ordering Facility: [facility] Address: [address] [place] [address] Performed By: #### 3 084-1, 64904-0, 2-0, 2776- #### [facility] CLIA [id number] [address] [place] [address] 85764 Chloride [Moles/Vol] 104 mmol/L Normal 97-105 [facility] Comment on above: Order Comment: Speci men Type: BLOOD SPECIMEN [facility] [facility] Address: [address] [place] [address] Performed By: #### 3 084-1, 14601-5, 2-0, 2776- #### [facility] CLIA [id number] [address] [place] [address] 78365 CO2 [Moles/Vol] 28 mmol/L Normal 22-30 [facility] Comment on above: Order Comment: Speci men Type: BLOOD SPECIMEN Ordering Facility: [facility] Address: [address] [place] [address] Performed By: #### 3 084-1, 47614-1, 2532-0, 2776- #### [facility] CLIA [id number] [address] [place] [address] 88028 Creatinine [Mass/Vol] 0.89 mg/dL Normal 0.58-0.96 [facility] Comment on above: Order Comment: Ludy phillips Type: BLOOD SPECIMEN Ordering Facility: [facility] Address: [address] [place] [address] Performed By: #### 3 084-1, 42554-8, 2532-0, 2777-1 #### [facility] CLIA [id number] [address] [place] [address] 24235 ESTIMATED GLOMERULAR FILTRATION RATE 68 mL/min/1.73m??? Normal >=60 [facility] Comment on above: Order Comment: Ludy phillips Type: BLOOD SPECIMEN Ordering Facility: [facility] Address: [address] [place] [address] Result Comment: Ev mated Glomerular Filtration Rate [...] actual GFR. Performed By: #### 3 084-1, 78166-0, 2532-0, 2777-1 #### [facility] CLIA [id number] [address] [place] [address] 98597 Glucose [Mass/Vol] 97 mg/dL Normal 74-99 [facility] Comment on above: Order Comment: Ludy phillips Type: BLOOD SPECIMEN Ordering Facility: [facility] Address: [address] [place] [address] Result Comment: The [place] Diabetes Association (ADA) provides guidance for cutoff [...] Standards of Medical Care in Diabetes 2016, [place] Diabetes Association. Diabetes Care. 2016.39(Suppl 1). Performed By: #### 3 084-1, 43023-3, 2-0, 2776- #### [facility] CLIA [id number] [address] [place] [address] 99269 Potassium [Moles/Vol] 4.1 mmol/L Normal 3.7-5.1 [facility] Comment on above: Order Comment: Speci men Type: BLOOD SPECIMEN Ordering Facility: [facility] Address: [address] [place], [place] [address] Performed By: #### 3 084-1, 02532-0, 2531-0, 2776- #### [facility] CLIA [id number] [address] [place] [address] 08812 Protein [Mass/Vol] 6.8 g/dL Normal 6.3-8.0 [facility] Comment on above: Order Comment: Speci men Type: BLOOD SPECIMEN Ordering Facility: [facility] Address: [address] [place], [place] [address] Performed By: #### 3 084-1, 14430-8, 2531-0, 2776-06 #### [facility] CLIA [id number] [address] [place] [address] 59502 Sodium [Moles/Vol] 141 mmol/L Normal 136-144 [facility] Comment on above: Order Comment: Speci men Type: BLOOD SPECIMEN Ordering Facility: [facility] Address: [address] [address] Performed By: #### 3 084-1, 73467-2, 2-0, 2776- #### [facility] CLIA [id number] [address] [place] [address] 86097 Urea nitrogen [Mass/Vol] 27 mg/dL High 7-21 [facility] Comment on above: Order Comment: Speci men Type: BLOOD SPECIMEN Ordering Facility: [facility] Address: [address] [place] [address] Performed By: #### 3 084-1, 92159-0, 2532-0, 2777-1 #### [facility] CLIA [id number] [address] [place] [address] 36618 Albumin [Mass/Vol] 4.1 g/dL 3.9 - 4.9 g/dL [facility] ALP [Catalytic activity/Vol] 93 U/L 34 - 123 U/L [facility] ALT [Catalytic activity/Vol] 11 U/L 7 - 38 U/L [facility] Anion gap [Moles/Vol] 9 mmol/L 9 - 18 mmol/L [facility] AST [Catalytic activity/Vol] 14 U/L 13 - 35 U/L [facility] Bilirubin [Mass/Vol] 0.2 mg/dL 0.2 - 1.3 mg/dL [facility] Calcium [Mass/Vol] 9.5 mg/dL 8.5 - 10. 2 mg/dL [facility] Chloride [Moles/Vol] 104 mmol/L 97 - 105 mmol/L [facility] CO2 [Moles/Vol] 28 mmol/L 22 - 30 mmol/L [facility] Creatinine [Mass/Vol] 0.89 mg/dL 0.58 - 0.96 mg/dL [facility] Estimated Glomerular Filtration Rate 68 mL/min/1.73m >=60 mL/min/1.73m [facility] Glucose [Mass/Vol] 97 mg/dL 74 - 99 mg/dL [facility] Potassium [Moles/Vol] 4.1 mmol/L 3.7 - 5.1 mmol/L [facility] Protein [Mass/Vol] 6.8 g/dL 6.3 - 8.0 g/dL [facility] Sodium [Moles/Vol] 141 mmol/L 136 - 144 mmol/L [facility] Urea nitrogen [Mass/Vol] 27 mg/dL High 7 - 21 mg/dL [facility] IMMUNOFIXATION SCREEN, SERUM on 01-25-2022 INTERPRETATION (MPA) Atypical restricted bands are present in the IgM and kappa regions. Consistent with IgM kappa monoclonal gammopathy. Normal [facility] Comment on above: Order Comment: Speci men Type: BLOOD SPECIMEN Ordering Facility: [facility] Address: [address] [place] [address] Performed By: #### I FESC #### [facility] CLIA [id number] [address] [place] [address] MPA RESULT M protein is present. Abnormal No M p rotein is identified. [facility] Comment on above: Order Comment: Speci men Type: BLOOD SPECIMEN Ordering Facility: [facility] Address: [address] [place] [address] Performed By: #### I FESC #### [facility] CLIA [id number] [address] [place] [address] OF [place] STAFF REVIEW (MPA) Reviewed by María hardy MD Normal [facility] Comment on above: Order Comment: Speci men Type: BLOOD SPECIMEN Ordering Facility: [facility] Address: [address] [place] [address] Performed By: #### I FES #### [facility] CLIA [id number] [address] [place] [address] [place] IMMUNOGLOBULINS GAMon 2021 IgA [Mass/Vol] 153 mg/dL Normal 70-400 [facility] Comment on above: Order Comment: Speci men Type: BLOOD SPECIMEN Ordering Facility: [facility] Address: [address] [place] [address] Performed By: #### S ERIMM #### [facility] CLIA [id number] [address] [place] [address] [place] IgG [Mass/Vol] 1211 mg/dL Normal 700-1600 [facility] Comment on above: Order Comment: Speci men Type: BLOOD SPECIMEN Ordering Facility: [facility] Address: [address] [place], [place] [address] Performed By: #### S ERIMM #### [facility] CLIA [id number] [address] [place] [address] [place] IgM [Mass/Vol] 357 mg/dL High 40-230 [facility] Comment on above: Order Comment: Speci men Type: BLOOD SPECIMEN Ordering Facility[facility] Address: [address] [place] [address] Performed By: #### S ERIMM #### [facility] CLIA [id number] [address] [place] [address] [place] KAPPA/LEONARD,FREE,SERon 2021 Immunoglobulin light chains.kappa.free (S) [Mass/Vol] 132.0 mg/L High 3.3-19.4 [facility] Comment on above: Order Comment: Speci men Type: BLOOD SPECIMEN Ordering Facility[facility] Address: [address] [place] [address] Performed By: #### K LFRS #### [facility] CLIA [id number] [address] [place] [address] [place] Immunoglobulin light chains.kappa/Immun oglobulin light chains.lambda (S) [Mass ratio] 7.95 High 0.26-1.65 [facility] Comment on above: Order Comment: Speci men Type: BLOOD SPECIMEN Ordering Facility[facility] Address: [address] [place] [address] Performed By: #### K LFRS #### [facility] CLIA [id number] [address] [place] [address] [place] Immunoglobulin light chains.lambda.free [Mass/Vol] 16.6 mg/L Normal 5.7-26.3 [facility] Comment on above: Order Comment: Speci men Type: BLOOD SPECIMEN Ordering [facility] Address: [address] [place] [address] Performed By: #### K LFRS #### [facility] CLIA [id number] [address] [place] [address] [place] LD LACTATE DEHYDROon 022 LDH [Catalytic activity/Vol] 179 U/L 135 - 214 U/L [facility] LDH SerPl-cCncon 01-25-2022 LDH [Catalytic activity/Vol] 179 U/L Normal 135-214 [facility] Comment on above: Order Comment: Ludy phillips Type: BLOOD SPECIMEN Order[facility] Address: [address] [place] [address] Result Comment: Hemo lysis present. The origin [...] clinically indicated. Performed By: #### 3 084-1, 55672-8, 2532-0, 2777-1 #### [facility] CLIA [id number] [address] [place] [address] 32834 PHOSPHORUS INORGANICon 01-25 Phosphate [Mass/Vol] 3.9 mg/dL 2.7 - 4.8 mg/dL [facility] PROTEIN ELECTROPHORESIS SERU M (P)on 01-25-2022 Albumin [Mass/Vol] 3.61 g/dL Normal 3.37-4.23 [facility] Comment on above: Order Comment: Ludy phillips Type: BLOOD SPECIMEN Ordering [facility] Address: [address] [place] [address] Performed By: #### L [id number] #### [facility] CLIA [id number] [address] [place] [address] [place] Alpha 1 globulin Elph [Mass/Vol] 0.24 g/dL Normal 0.18-0.31 [facility] Comment on above: Order Comment: Ludy phillips Type: BLOOD SPECIMEN Ordering [facility] Address: [address] [place] [address] Performed By: #### L [id number] #### [facility] CLIA [id number] [address] [place] [address] [place] Alpha 2 globulin Elph [Mass/Vol] 0.66 g/dL Normal 0.52-0.97 [facility] Comment on above: Order Comment: Speci men Type: BLOOD SPECIMEN Ordering [facility] Address: [address] [place] [address] Performed By: #### L [id number] #### [facility] CLIA [id number] [address] [place] [address] [place] Beta globulin Elph [Mass/Vol] 0.84 g/dL Normal 0.84-1.36 [facility] Comment on above: Order Comment: Speci men Type: BLOOD SPECIMEN Ordering [facility] Address: [address] [place] [address] Performed By: #### L [id number] #### [facility] CLIA [id number] [address] [place] [address] [place] Gamma globulin Elph (Body fld) [Mass fraction] 1.34 g/dL Normal 0.70-1.44 [facility] Comment on above: Order Comment: Speci men Type: BLOOD SPECIMEN Ordering Facility[facility] Address: [address] [place] [address] Performed By: #### L [id number] #### [facility] CLIA [id number] [address] [place] [address] [place] INTERPRETATION COMMENT FOR PROTEIN ELECTROPHORESIS Normal [facility] Comment on above: Order Comment: Speci men Type: BLOOD SPECIMEN Ordering Facility[facility] Address: [address] [place] [address] Result Comment: See separate immunofixation report for characterization of monoclonal gammopathy. M protein is present on the background of a polyclonal immunoglobulin population. Quantitation of the M protein may overestimate the amount of M protein present. Performed By: #### L [id number] #### [facility] CLIA [id number] [address] [place] [address] [place] M-PROTEIN LOCATION Gamma Fraction 1 Normal [facility] Comment on above: Order Comment: Speci men Type: BLOOD SPECIMEN [facility] Address: [address] [place], [place] [address] Performed By: #### L [id number] #### [facility] CLIA [id number] [address] [place] [address] [place] Protein Fractions [Interp] An M protein is identified on protein electrophoresis. Abnormal No definitive M protein is identified on protein electrophore sis. [facility] Comment on above: Order Comment: Speci men Type: BLOOD SPECIMEN Order[facility] Address: [address] [place] [address] Performed By: #### L [id number] #### [facility] CLIA [id number] [address] [place] [address] [place] Protein.monoclonal Elph [Mass/Vol] 0.25 g/dL High <=0.00 [facility] Comment on above: Order Comment: Speci men Type: BLOOD SPECIMEN Order[facility] Address: [address] [place] [address] Performed By: #### L [id number] #### [facility] CLIA [id number] [address] [place] [address] [place] SPE STAFF REVIEW Reviewed by María hardy MD Normal [facility] Comment on above: Order Comment: Speci men Type: BLOOD SPECIMEN [facility] Address: [address] [place], [place] [address] Performed By: #### L [id number] #### [facility] CLIA [id number] [address] [place] [address] [place] Phosphate SerPl-mCncon 01-25 Phosphate [Mass/Vol] 3.9 mg/dL Normal 2.7-4.8 [facility] Comment on above: Order Comment: Speci men Type: BLOOD SPECIMEN Order[facility] Address: [address] [place] [address] Performed By: #### 3 084-1, 75225-8, 2532-0, 2777-1 #### [facility] CLIA [id number] [address] [place] [address] 33310 Prot [facility]-2022 Protein [Mass/Vol] 6.7 g/dL Normal 6.3-8.0 [facility] Comment on above: Order Comment: Speci men Type: BLOOD SPECIMEN Order[facility] Address: [address] [place] [address] Performed By: #### 2 885-2, 1951-06 #### [facility] CLIA [id number] [address] [place] [address] [place] URIC ACID BLOODon 01-25-2022 Urate [Mass/Vol] 5.4 mg/dL 2.5 - 6.6 mg/dL [facility] Urate [facility] Urate [Mass/Vol] 5.4 mg/dL Normal 2.5-6.6 [facility] Comment on above: Order Comment: Speci men Type: BLOOD SPECIMEN Ordering [facility] Address: [address] [place] [address] Performed By: #### 3 084-1, 90576-5, 2532-0, 2777-1 #### [facility] CLIA [id number] [address] [place] [address] 77950 Physician Referralon 022 Physician Referral [id number] Normal [facility] US THYROIDon 01-11-2022 US THYROID EXAMINATION: [...] fine-needle aspiration of both nodules. TI-RADS: The [place] [employer] TI-RADS committee's white paper recommendations for thyroid lesions classified as TR4 (moderately suspicious) are listed below: > 1.0 cm. Follow-up ultrasound in 1, 2, 3, and 5 years. > 1.5 cm. FNA. J. Am Mat Radiol 2017;14:587-595. TI-RADS: The [place] [employer] TI-RADS committee's white paper recommendations for thyroid lesions classified as TR5 (highly suspicious) are listed below: > 0.5 cm. Annual ultrasound follow-up for up to 5 years. > 1.0 cm. FNA. J. Am Mat Radiol 2017;14:587-595. Electronically authenticated by: BIRGIT HAMILTON Date: 2022-01-11 07:45 Normal [facility] Glucose Poct Glucometerson 0 12-30-2021 Glucose [Mass/Vol] 95 mg/dL Normal [facility] Comment on above: Result Comment: [facility] Glucose Reference Range is dependent on time and content of last meal. Glucose of more than 200 mg/dL in a nonstressed, ambulatory subject supports the diagnosis of Diabetes Mellitus. PERFORMED BY: [address] [address] PATHOLOGIST [place] PATROL LIEUTENANT FLOYD LOPEZ M.D. Performed By: #### G SALMA #### Point of Care testing , PET tumor init tx strat sb-m ton 12-30-2021 PET tumor init tx strat sb-mt [facility] [place] [address] [place] [address] Nuclear Medicine Report Signed Patient: Riana Garcia MR#: [id number] : 1945 Acct:[id number] Age/Sex: 76 / F ADM Date: 12/30/21 Loc: Room: Type: [facility] Attending Dr: Rosita Schaffer Copies to: KARIE [...] Blake Hickey M.D.12/30/2021 2:30 PM Dictation Location: [place] [address] Transcribed By: [facility] 12/30/21 1430 Dictated By: Blake Hickey DO 12/30/21 1411 Signed By: 12/30/21 1430 [facility] MG MAMM RT DIAG FUon 022 MG MAMM RT DIAG FU Patient: LONNIE GARCIA Exam Date: 12/16/2021 : 1945 Gender:F Ordering : [facility] Admission #: [id number] Family : Order #: [id number] CLICK HERE TO VIEW EXAM RADIOLOGY REPORT [...] No Treatments None Family Cancers None LOCATION: [facility] BREAST COMPOSITION: Heterogeneously dense,which may obscure [...] MD on 12/16/2021 at 15:21 Normal [facility] US BREAST RIGHT LIMITEDon US BREAST RIGHT LIMITED Patient: RIANA GARCIA Exam Date: 12/16/2021 : 1945 Gender:F Ordering : [facility] Admission #: [id number] Family : Order #: [id number] CLICK HERE TO VIEW EXAM RADIOLOGY REPORT [...] Treatments None Family Cancers None LOCATION: [facility] BREAST COMPOSITION: Heterogeneously dense,which may obscure [...] MD on 12/16/2021 at 15:21 Normal [facility] HLA B 27on 12-11-2021 HLA-B27 Negative Normal [facility] Comment on above: Result Comment: HLA- B*27 Negative B27 allele interpretation for all loci based on IMGT/HLA database version 3.44 This test was developed and its performance characteristics determined by [employer]. It has not been cleared or approved by the Food and Drug Administration. [facility] CLIA ID Number [id number] . This test was performed using PCR (Polymerase Chain Reaction)/SSOP (Sequence Specific Oligonucleotide Probes) technique. SBT (Sequence Based Typing) and/or SSP (Sequence Specific Primers) may be used as supplemental methods when necessary. Please contact [facility] Customer Service at if you have any questions. . Director of [facility] Dr Floyd Trammell, PhD Performed By: #### H LA27 #### [facility] [address] [place] [address] Dr. Darius Zepeda MG MAMM SCREEN 3D THIERRY CADon 12-11-2021 MG MAMM SCREEN 3D THIERRY CAD Patient: RIANA GARCIA Exam Date: 12/11/2021 : 1945 Gender:F Ordering : STEPHANIE ROSITA [facility] Admission #: [id number] Family : Order #: [id number] CLICK HERE TO VIEW EXAM RADIOLOGY REPORT PROCEDURE: MAMMOGRAM SCREENING 3D BILATERAL CAD COMPARISON: None. INDICATIONS: Screening mammography Calculator Name NCI Breast Cancer Risk Assessment Tool 5 Year Breast Cancer Risk 2.00% Lifetime Breast Cancer Risk 4.50% Personal Breast Cancer No Personal Ovarian Cancer No Treatments None Family Cancers None LOCATION: [facility] BREAST COMPOSITION: Heterogeneously dense,which may obscure [...] M.D. on 12/11/2021 at 15:30 Normal [facility] XR CHEST 2 Von 12-11-2021 XR CHEST [...] CARMEL GOVEA Date: 2021-12-11 18:05 Normal [facility] IMMUNOFIXATION (LIAN), URINEo n 12-09-2021 LIAN Interpretation:U Comment Normal [facility] Comment on above: Result Comment: No m onoclonality detected. Performed By: #### L DH, BMP, LIVER, CRP #### [facility] [address] [address] [address] Darius Zepeda GIGI by IFAon 12-08-2021 Antinuclear Antibodies, IFA Negative Normal [facility] Comment on above: Result Comment: Nega tive <1:80 Borderline 1:80 Positive >1:80 ICAP nomenclature: AC-0 For more information about Hep-2 cell patterns use ANApatterns.org, the official website for the International Consensus on Antinuclear Antibody (GIGI) Patterns (ICAP). Performed By: #### L DH, BMP, LIVER, CRP #### [facility] [address] [address] [address] Darius Zepeda IMMUNOFIXATION (LIAN), SERUMo n 12-08-2021 IMMUNOFIXATION RESULT Comment Abnormal [facility] Comment on above: Result Comment: Immu nofixation shows IgM monoclonal protein with kappa light chain specificity. Performed By: #### L DH, BMP, LIVER, CRP #### [facility] [address] [address] [address] Darius Zepeda Immunoglobulin A, Qn, Serum 157 mg/dL Normal 64-422 [facility] Comment on above: Performed By: #### L DH, BMP, LIVER, CRP #### [facility] [address] [address] [address] Darius Zepeda Immunoglobulin G, Qn, Serum 1264 mg/dL Normal 586-1602 [facility] Comment on above: Performed By: #### L DH, BMP, LIVER, CRP #### [facility] [address] [address] [address] Darius Zepeda Immunoglobulin M, Qn, Serum 364 mg/dL Critically high 26-217 [facility] Comment on above: Performed By: #### L DH, BMP, LIVER, CRP #### [facility] [address] [place] [address] Dr. Darius Zepeda CBC AUTO DIFFon 12-04-2021 BASO # 0.1 103/ul Normal 0.0-0.1 [facility] Comment on above: Performed By: #### L DH, BMP, LIVER, CRP #### [facility] [address] [place] [address] Dr. Darius Zepeda Basophils/100 WBC (Bld) 0.6 % Normal 0.2-2.0 [facility] Comment on above: Performed By: #### L DH, BMP, LIVER, CRP #### [facility] [address] [place] [address] Dr. Darius Zepeda EO # 0.1 103/ul Normal 0.0-0.7 [facility] Comment on above: Performed By: #### L DH, BMP, LIVER, CRP #### [facility] [address] [place] [address] Dr. Darius Zepeda Eosinophils/100 WBC (Bld) 1.0 % Normal 0.9-7.0 [facility] Comment on above: Performed By: #### L DH, BMP, LIVER, CRP #### [facility] [address] [place] [address] Dr. Darius Zepeda Erythrocyte distribution width (RBC) [Ratio] 14.0 % Normal 11.0-15.0 [facility] Comment on above: Performed By: #### L DH, BMP, LIVER, CRP #### [facility] [address] [place] [address] Dr. Darius Zepeda Hematocrit (Bld) [Volume fraction] 35.8 % Critically low 36.0-48.0 [facility] Comment on above: Performed By: #### L DH, BMP, LIVER, CRP #### [facility] [address] [place] [address] Dr. Darius Zepeda Hemoglobin (Bld) [Mass/Vol] 11.2 g/dL Critically low 12.0-16.0 [facility] Comment on above: Performed By: #### L DH, BMP, LIVER, CRP #### [facility] [address] [address] [address] Darius Zepeda IG # 0.02 10e3/ul Normal 0.00-0.03 [facility] Comment on above: Performed By: #### L DH, BMP, LIVER, CRP #### [facility] [address] [place] [address] Dr. Darius Zepeda IG % 0.2 % Normal 0.0-0.5 [facility] Comment on above: Performed By: #### L DH, BMP, LIVER, CRP #### [facility] [address] [place] [address] Dr. Darius Zepeda LYMPH # 2.2 103/ul Normal 1.2-3.8 [facility] Comment on above: Performed By: #### L DH, BMP, LIVER, CRP #### [facility] [address] [place] [address] Dr. Darius Zepeda Lymphocytes/100 WBC (Bld) 25.1 % Normal 20.5-60.0 [facility] Comment on above: Performed By: #### L DH, BMP, LIVER, CRP #### [facility] [address] [place] [address] Dr. Darius Zepeda MANUAL DIFF REQ NO Normal [facility] Comment on above: Performed By: #### L DH, BMP, LIVER, CRP #### [facility] [address] [place] [address] Dr. Darius Zepeda MCH (RBC) [Entitic mass] 25.6 pg Critically low 26.7-34.0 [facility] Comment on above: Performed By: #### L DH, BMP, LIVER, CRP #### [facility] [address] [place] [address] Dr. Darius Zepeda MCHC (RBC) [Mass/Vol] 31.3 g/dL Normal 29.9-35.2 [facility] Comment on above: Performed By: #### L DH, BMP, LIVER, CRP #### [facility] [address] [place] [address] Dr. Darius Zepeda MCV (RBC) [Entitic vol] 81.7 fL Normal 81.0-99.0 [facility] Comment on above: Performed By: #### L DH, BMP, LIVER, CRP #### [facility] [address] [place] [address] Dr. Darius Zepeda MONO # 0.7 103/ul Normal 0.3-0.8 [facility] Comment on above: Performed By: #### L DH, BMP, LIVER, CRP #### [facility] [address] [place] [address] Dr. Darius Zepeda Monocytes/100 WBC (Bld) 7.7 % Normal 1.7-12.0 [facility] Comment on above: Performed By: #### L DH, BMP, LIVER, CRP #### [facility] [address] [place] [address] Dr. Darius Zepeda NEUT # 5.7 103/ul Normal 1.4-6.5 [facility] Comment on above: Performed By: #### L DH, BMP, LIVER, CRP #### [facility] [address] [place] [address] Dr. Darius Zepeda Neutrophils/100 WBC (Bld) 65.4 % Normal 43.0-75.0 [facility] Comment on above: Performed By: #### L DH, BMP, LIVER, CRP #### [facility] [address] [place] [address] Dr. Darius Zepeda Platelet mean volume (Bld) [Entitic vol] 10.2 fL Normal 9.5-13.5 [facility] Comment on above: Performed By: #### L DH, BMP, LIVER, CRP #### [facility] [address] [place] [address] Dr. Darius Zepeda PLT 220 103/ul Normal 150-450 [facility] Comment on above: Performed By: #### L DH, BMP, LIVER, CRP #### [facility] [address] [place] [address] Dr. Darius Zepeda RBC 4.38 106/ul Normal 4.20-5.40 [facility] Comment on above: Performed By: #### L DH, BMP, LIVER, CRP #### [facility] [address] [place] [address] Dr. Darius Zepeda WBC 8.7 103/ul Normal 4.0-11.0 [facility] Comment on above: Performed By: #### L DH, BMP, LIVER, CRP #### [facility] [address] [address] [address] Darius Zepeda CRPon 12-04-2021 CRP 1.1 mg/dL Critically high <=1.0 [facility] Comment on above: Performed By: #### L DH, BMP, LIVER, CRP #### [facility] [address] [address] [address] Darius Zepeda LDHon 12-04-2021 LDH 172 U/L Normal 81-234 [facility] Comment on above: Performed By: #### L DH, BMP, LIVER, CRP #### [facility] [address] [address] [address] Darius Zepeda LIVER PROFILEon 12-04-2021 Albumin [Mass/Vol] 3.7 g/dL Normal 3.4-5.0 [facility] Comment on above: Performed By: #### L DH, BMP, LIVER, CRP #### [facility] [address] [address] [address] Darius Zepeda Albumin/Globulin [Mass ratio] 0.9 {ratio} Normal [facility] Comment on above: Performed By: #### L DH, BMP, LIVER, CRP #### [facility] [address] [address] [address] Darius Zepeda ALP [Catalytic activity/Vol] 80 U/L Normal 46-116 [facility] Comment on above: Performed By: #### L DH, BMP, LIVER, CRP #### [facility] [address] [address] [address] Darius Zepeda ALT [Catalytic activity/Vol] 22 U/L Normal 14-59 [facility] Comment on above: Performed By: #### L DH, BMP, LIVER, CRP #### [facility] [address] [address] [address] Darius Zepeda AST [Catalytic activity/Vol] 15 U/L Normal 15-37 [facility] Comment on above: Performed By: #### L DH, BMP, LIVER, CRP #### [facility] [address] [address] [address] Darius Zepeda BILI, CONJUGATED 0.1 mg/dL Normal 0.0-0.2 [facility] Comment on above: Performed By: #### L DH, BMP, LIVER, CRP #### [facility] [address] [place] [address] Dr. Darius Zepeda Bilirubin [Mass/Vol] 0.6 mg/dL Normal 0.2-1.0 [facility] Comment on above: Performed By: #### L DH, BMP, LIVER, CRP #### [facility] [address] [place] [address] Dr. Darius Zepeda Globulin (S) [Mass/Vol] 3.9 g/dL Normal [facility] Comment on above: Performed By: #### L DH, BMP, LIVER, CRP #### [facility] [address] [place] [address] Dr. Darius Zepeda Protein [Mass/Vol] 7.6 g/dL Normal 6.4-8.2 [facility] Comment on above: Performed By: #### L DH, BMP, LIVER, CRP #### [facility] [address] [place] [address] Dr. Darius Zepeda PROF CHEM 8 (BAS METB)on Anion gap [Moles/Vol] 12.8 mmol/L Normal [facility] Comment on above: Performed By: #### L DH, BMP, LIVER, CRP #### [facility] [address] [place] [address] Dr. Darius Zepeda Calcium [Mass/Vol] 8.7 mg/dL Normal 8.5-10.1 [facility] Comment on above: Performed By: #### L DH, BMP, LIVER, CRP #### [facility] [address] [place] [address] Dr. Darius Zepeda Chloride [Moles/Vol] 105 mmol/L Normal 98-107 [facility] Comment on above: Performed By: #### L DH, BMP, LIVER, CRP #### [facility] [address] [address] [address] Darius Zepeda CO2 [Moles/Vol] 27.1 mmol/L Normal 21.0-32.0 [facility] Comment on above: Performed By: #### L DH, BMP, LIVER, CRP #### [facility] [address] [address] [address] Darius Zepeda Creatinine [Mass/Vol] 1.01 mg/dL Normal 0.55-1.02 [facility] Comment on above: Performed By: #### L DH, BMP, LIVER, CRP #### [facility] [address] [address] [address] Darius Zepeda EGFR-AF GUINEAN >60 Normal >=60 [facility] Comment on above: Performed By: #### L DH, BMP, LIVER, CRP #### [facility] [address] [address] [address] Darius Zepeda EGFR-NON AF GUINEAN 54 mL/min/1.73m2 Critically low >=60 [facility] Comment on above: Performed By: #### L DH, BMP, LIVER, CRP #### [facility] [address] [address] [address] Darius Zepeda Glucose [Mass/Vol] 96 mg/dL Normal 74-106 [facility] Comment on above: Performed By: #### L DH, BMP, LIVER, CRP #### [facility] [address] [address] [address] Darius Zepeda Potassium [Moles/Vol] 3.9 mmol/L Normal 3.5-5.1 [facility] Comment on above: Performed By: #### L DH, BMP, LIVER, CRP #### [facility] [address] [address] [address] Darius Zepeda Sodium [Moles/Vol] 141 mmol/L Normal 136-145 [facility] Comment on above: Performed By: #### L DH, BMP, LIVER, CRP #### [facility] [address] [address] [address] Darius Zepeda Urea nitrogen [Mass/Vol] 24.0 mg/dL Critically high 7.0-18.0 [facility] Comment on above: Performed By: #### L DH, BMP, LIVER, CRP #### [facility] [address] [place] [address] Dr. Darius Zepeda Urea nitrogen/Creatinin e [Mass ratio] 23.8 mg/mg Normal [facility] Comment on above: Performed By: #### L DH, BMP, LIVER, CRP #### [facility] [address] [place] [address] Dr. [facility]arius [facility] 30 mm/hr Normal <=30 [facility] Comment on above: Performed By: #### L DH, BMP, LIVER, CRP #### [facility] [address] [place] [address] Dr. Darius Zepeda UA (CLEAN/CATCH) CLINICAL INSTRUCTOR/MICRO I F IND.on 12-04-2021 Bilirubin Ql (U) Negative Normal NEGATIVE [facility] Comment on above: Performed By: #### L DH, BMP, LIVER, CRP #### [facility] [address] [place] [address] Dr. Darius Zepeda Clarity (U) CLEAR Normal CLEAR [facility] Comment on above: Performed By: #### L DH, BMP, LIVER, CRP #### [facility] [address] [place] [address] Dr. Darius Zepeda Color (U) YELLOW Normal YELLOW [facility] Comment on above: Performed By: #### L DH, BMP, LIVER, CRP #### [facility] [address] [place] [address] Dr. Darius Zepeda Glucose Ql (U) Negative Normal NEGATIVE [facility] Comment on above: Performed By: #### L DH, BMP, LIVER, CRP #### [facility] [address] [place] [address] Dr. Darius Zepeda Hemoglobin Ql (U) Negative Normal NEGATIVE [facility] Comment on above: Performed By: #### L DH, BMP, LIVER, CRP #### [facility] [address] [place] [address] Dr. Darius Zepeda Ketones Ql (U) Negative Normal NEGATIVE [facility] Comment on above: Performed By: #### L DH, BMP, LIVER, CRP #### [facility] [address] [address] [address] Darius Zepeda LEUKOCYTES Negative Normal NEGATIVE [facility] Comment on above: Performed By: #### L DH, BMP, LIVER, CRP #### [facility] [address] [address] [address] Darius Zepeda Nitrite Ql (U) Negative Normal NEGATIVE [facility] Comment on above: Performed By: #### L DH, BMP, LIVER, CRP #### [facility] [address] [address] [address] Darius Zepeda pH (U) 7.0 [pH] Normal 5-9 [facility] Comment on above: Performed By: #### L DH, BMP, LIVER, CRP #### [facility] [address] [place] [address] Dr. Darius Zepeda SPEC GRAVITY 1.020 Normal 1.005-<=1.02 5 [facility] Comment on above: Performed By: #### L DH, BMP, LIVER, CRP #### [facility] [address] [address] [address] Darius Zepeda UA PROTEIN Negative Normal NEGATIVE/ TRACE [facility] Comment on above: Performed By: #### L DH, BMP, LIVER, CRP #### [facility] [address] [address] [address] Darius Zepeda UR MICRO IND NOT INDICATED Normal [facility] Comment on above: Performed By: #### L DH, BMP, LIVER, CRP #### [facility] [address] [address] [address] Darius Zepeda Urobilinogen Qn (U) 0.2 {Nathalia'U}/dL Normal 0.2 - 1.0 [facility] Comment on above: Performed By: #### L DH, BMP, LIVER, CRP #### [facility] [address] [address] [address] Darius Zepeda URINE MICROSCOPIC ONLYon BACTERIA TRACE Abnormal NONE SEEN [facility] Comment on above: Performed By: #### L DH, BMP, LIVER, CRP #### [facility] [address] [address] [address] Darius Zepeda Bacteria identified Cx Nom (U) NOT INDICATED Normal [facility] Comment on above: Performed By: #### L DH, BMP, LIVER, CRP #### [facility] [address] [address] [address] Darius Zepeda CAST NONE SEEN Normal NONE SEEN [facility] Comment on above: Performed By: #### L DH, BMP, LIVER, CRP #### [facility] [address] [address] [address] Darius Zepeda Crystals LM Nom (Urine sed) NONE SEEN Normal NONE SEEN [facility] Comment on above: Performed By: #### L DH, BMP, LIVER, CRP #### [facility] [address] [place] [address] Dr. Darius Zepeda Epithelial cells LM Ql (Urine sed) MODERATE Abnormal NONE SEEN /RARE [facility] Comment on above: Performed By: #### L DH, BMP, LIVER, CRP #### [facility] [address] [place] [address] Dr. Darius Zepeda MUCOUS NONE SEEN Normal NONE SEEN [facility] Comment on above: Performed By: #### L DH, BMP, LIVER, CRP #### [facility] [address] [place] [address] Dr. Darius Zepeda RBC 0-2 Normal 0-2 [facility] Comment on above: Performed By: #### L DH, BMP, LIVER, CRP #### [facility] [address] [address] [address] Darius Zepeda WBC 2-5 Abnormal NONE SEEN [facility] Comment on above: Performed By: #### L DH, BMP, LIVER, CRP #### [facility] [address] [place] [address] Dr. Darius Zepeda MRI LSPINE W CONon [...] BIRGIT HAMILTON Date: 2021-12-02 11:44 Normal [facility] CBC AUTO DIFFon 11-11-2021 BASO # 0.0 103/ul Normal 0.0-0.1 [facility] Comment on above: Performed By: #### C BC #### [facility] [address] [place] [address] Dr. Darius Zepeda Basophils/100 WBC (Bld) 0.5 % Normal 0.2-2.0 [facility] Comment on above: Performed By: #### C BC #### [facility] [address] [place] [address] Dr. Darius Zepeda EO # 0.1 103/ul Normal 0.0-0.7 [facility] Comment on above: Performed By: #### C BC #### [facility] [address] [place] [address] Dr. Darius Zepeda Eosinophils/100 WBC (Bld) 1.2 % Normal 0.9-7.0 [facility] Comment on above: Performed By: #### C BC #### [facility] [address] [place] [address] Dr. Darius Zepeda Erythrocyte distribution width (RBC) [Ratio] 13.7 % Normal 11.0-15.0 [facility] Comment on above: Performed By: #### C BC #### [facility] [address] [place] [address] Dr. Darius Zepeda Hematocrit (Bld) [Volume fraction] 35.0 % Critically low 36.0-48.0 [facility] Comment on above: Performed By: #### C BC #### [facility] [address] [place] [address] Dr. Darius Zepeda Hemoglobin (Bld) [Mass/Vol] 11.0 g/dL Critically low 12.0-16.0 [facility] Comment on above: Performed By: #### C BC #### [facility] [address] [place] [address] Dr. Darius Zepeda IG # 0.01 10e3/ul Normal 0.00-0.03 [facility] Comment on above: Performed By: #### C BC #### [facility] [address] [place] [address] Dr. Darius Zepeda IG % 0.1 % Normal 0.0-0.5 [facility] Comment on above: Performed By: #### C BC #### [facility] [address] [place] [address] Dr. Darius Zepeda LYMPH # 2.3 103/ul Normal 1.2-3.8 [facility] Comment on above: Performed By: #### C BC #### [facility] [address] [place] [address] Dr. Darius Zepeda Lymphocytes/100 WBC (Bld) 27.5 % Normal 20.5-60.0 [facility] Comment on above: Performed By: #### C BC #### [facility] [address] [place] [address] Dr. Darius Zepeda MANUAL DIFF REQ NO Normal [facility] Comment on above: Performed By: #### C BC #### [facility] [address] [place] [address] Dr. Darius Zepeda MCH (RBC) [Entitic mass] 25.9 pg Critically low 26.7-34.0 [facility] Comment on above: Performed By: #### C BC #### [facility] [address] [place] [address] Dr. Darius Zepeda MCHC (RBC) [Mass/Vol] 31.4 g/dL Normal 29.9-35.2 [facility] Comment on above: Performed By: #### C BC #### [facility] [address] [place] [address] Dr. Darius Zepeda MCV (RBC) [Entitic vol] 82.4 fL Normal 81.0-99.0 [facility] Comment on above: Performed By: #### C BC #### [facility] [address] [place] [address] Dr. Darius Zepeda MONO # 0.8 103/ul Normal 0.3-0.8 [facility] Comment on above: Performed By: #### C BC #### [facility] [address] [place] [address] Dr. Darius Zepeda Monocytes/100 WBC (Bld) 9.1 % Normal 1.7-12.0 [facility] Comment on above: Performed By: #### C BC #### [facility] [address] [place] [address] Dr. Darius Zepeda NEUT # 5.2 103/ul Normal 1.4-6.5 [facility] Comment on above: Performed By: #### C BC #### [facility] [address] [place] [address] Dr. Darius Zepeda Neutrophils/100 WBC (Bld) 61.6 % Normal 43.0-75.0 [facility] Comment on above: Performed By: #### C BC #### [facility] [address] [place] [address] Dr. Darius Zepeda Platelet mean volume (Bld) [Entitic vol] 9.6 fL Normal 9.5-13.5 [facility] Comment on above: Performed By: #### C BC #### [facility] [address] [place] [address] Dr. Darius Zepeda PLT 204 103/ul Normal 150-450 [facility] Comment on above: Performed By: #### C BC #### [facility] [address] [place] [address] Dr. Darius Zepeda RBC 4.25 106/ul Normal 4.20-5.40 [facility] Comment on above: Performed By: #### C BC #### [facility] [address] [place] [address] Dr. Darius Zepeda WBC 8.4 103/ul Normal 4.0-11.0 [facility] Comment on above: Performed By: #### C BC #### [facility] [address] [place] [address] Dr. Darius Zepeda CRPon 11-11-2021 CRP 1.1 mg/dL Critically high <=1.0 [facility] Comment on above: Performed By: #### L DH, BMP, LIVER, CRP #### [facility] [address] [place] [address] Dr. Darius Zepeda FREE T4on 11-11-2021 Free T4 [Mass/Vol] 0.81 ng/dL Normal 0.76-1.46 [facility] Comment on above: Performed By: #### F T4 #### [facility] [address] [place] [address] Dr. Darius Zepeda PROF 14(COMP METB)on 022 Albumin [Mass/Vol] 3.4 g/dL Normal 3.4-5.0 [facility] Comment on above: Performed By: #### L DH, BMP, LIVER, CRP #### [facility] [address] [place] [address] Dr. Darius Zepeda Albumin/Globulin [Mass ratio] 0.9 {ratio} Normal [facility] Comment on above: Performed By: #### L DH, BMP, LIVER, CRP #### [facility] [address] [place] [address] Dr. Darius Zepeda ALP [Catalytic activity/Vol] 92 U/L Normal 46-116 [facility] Comment on above: Performed By: #### L DH, BMP, LIVER, CRP #### [facility] [address] [address] [address] Darius Zepeda ALT [Catalytic activity/Vol] 23 U/L Normal 14-59 [facility] Comment on above: Performed By: #### L DH, BMP, LIVER, CRP #### [facility] [address] [address] [address] Darius Zepeda Anion gap [Moles/Vol] 9.4 mmol/L Normal [facility] Comment on above: Performed By: #### L DH, BMP, LIVER, CRP #### [facility] [address] [address] [address] Darius Zepeda AST [Catalytic activity/Vol] 14 U/L Critically low 15-37 [facility] Comment on above: Performed By: #### L DH, BMP, LIVER, CRP #### [facility] [address] [address] [address] Darius Zepeda Bilirubin [Mass/Vol] 0.4 mg/dL Normal 0.2-1.0 [facility] Comment on above: Performed By: #### L DH, BMP, LIVER, CRP #### [facility] [address] [address] [address] Darius Zepeda Calcium [Mass/Vol] 9.0 mg/dL Normal 8.5-10.1 [facility] Comment on above: Performed By: #### L DH, BMP, LIVER, CRP #### [facility] [address] [address] [address] Darius Zepeda Chloride [Moles/Vol] 104 mmol/L Normal 98-107 [facility] Comment on above: Performed By: #### L DH, BMP, LIVER, CRP #### [facility] [address] [address] [address] Darius Zepeda CO2 [Moles/Vol] 30.5 mmol/L Normal 21.0-32.0 [facility] Comment on above: Performed By: #### L DH, BMP, LIVER, CRP #### [facility] [address] [address] [address] Darius Zepeda Creatinine [Mass/Vol] 0.92 mg/dL Normal 0.55-1.02 [facility] Comment on above: Performed By: #### L DH, BMP, LIVER, CRP #### [facility] [address] [address] [address] Darius Zepeda EGFR-AF GUINEAN >60 Normal >=60 [facility] Comment on above: Performed By: #### L DH, BMP, LIVER, CRP #### [facility] [address] [address] [address] Darius Zepeda EGFR-NON AF GUINEAN 60 mL/min/1.73m2 Normal >=60 [facility] Comment on above: Performed By: #### L DH, BMP, LIVER, CRP #### [facility] [address] [place] [address] Dr. Darius Zepeda Globulin (S) [Mass/Vol] 3.7 g/dL Normal [facility] Comment on above: Performed By: #### L DH, BMP, LIVER, CRP #### [facility] [address] [place] [address] Dr. Darius Zepeda Glucose [Mass/Vol] 88 mg/dL Normal 74-106 [facility] Comment on above: Performed By: #### L DH, BMP, LIVER, CRP #### [facility] [address] [place] [address] Dr. Darius Zepeda Potassium [Moles/Vol] 3.9 mmol/L Normal 3.5-5.1 [facility] Comment on above: Performed By: #### L DH, BMP, LIVER, CRP #### [facility] [address] [place] [address] Dr. Darius Zepeda Protein [Mass/Vol] 7.1 g/dL Normal 6.4-8.2 [facility] Comment on above: Performed By: #### L DH, BMP, LIVER, CRP #### [facility] [address] [place] [address] Dr. Darius Zepeda Sodium [Moles/Vol] 140 mmol/L Normal 136-145 [facility] Comment on above: Performed By: #### L DH, BMP, LIVER, CRP #### [facility] [address] [place] [address] Dr. Darius Zepeda Urea nitrogen [Mass/Vol] 25.0 mg/dL Critically high 7.0-18.0 [facility] Comment on above: Performed By: #### L DH, BMP, LIVER, CRP #### [facility] [address] [address] [address] Darius Zepeda Urea nitrogen/Creatinin e [Mass ratio] 27.2 mg/mg Normal [facility] Comment on above: Performed By: #### L DH, BMP, LIVER, CRP #### [facility] [address] [address] [address] Darius [facility]ep[facility] 14 mm/hr Normal <=30 [facility] Comment on above: Performed By: #### S EDR #### [facility] [address] [place] [address] Dr. Darius Zepeda TSHon 11-11-2021 TSH 3.474 uIU/mL Normal 0.358-3.740 [facility] Comment on above: Performed By: #### L DH, BMP, LIVER, CRP #### [facility] [address] [address] [address] Darius Zepeda TSH RANGE SEE BELOW Normal [facility] Comment on above: Result Comment: <0.3 4 UIU/ml HYPERTHYROID 0.34-5.60 UIU/ml EUTHYROID >5.60 UIU/ml HYPOTHYROID Performed By: #### L DH, BMP, LIVER, CRP #### [facility] [address] [place] [address] Dr. Darius Zepeda MRI LSPINE WO CONon [...] BIRGIT HAMILTON Date: 2021-11-04 15:15 Normal [facility] FERRITINon 06-02-2021 Ferritin [Mass/Vol] 46 ng/mL Normal 15-150 [facility] Comment on above: Performed By: #### L DH, BMP, LIVER, CRP #### [facility] [address] [place], [place] [address] Dr. Darius Zepeda VITAMIN B12on 06-02-2021 Cobalamin (Vitamin B12) [Mass/Vol] 637 pg/mL Normal 232-1245 [facility] Comment on above: Performed By: #### L DH, BMP, LIVER, CRP #### [facility] [address] [place], [place] [address] Dr. Darius Zepeda GLYCOHEMOGLOBIN A1Con 2020 ADA RECOMMENDATION ADA THERAPEUTIC TARG ET 6.0 - 7.0 ACTION SUGGESTED > 7.0 Normal [facility] Comment on above: Performed By: #### L DH, BMP, LIVER, CRP #### [facility] [address] [address] [address] Darius Zepeda Glucose [Mass/Vol] 111 mg/dL Normal [facility] Comment on above: Performed By: #### L DH, BMP, LIVER, CRP #### [facility] [address] [address] [address] Draius Zepeda HbA1c (Bld) [Mass fraction] 5.5 % Normal <=6.0 [facility] Comment on above: Performed By: #### L DH, BMP, LIVER, CRP #### [facility] [address] [place] [address] Dr. Darius Zepeda IRONon 06-01-2021 Iron [Mass/Vol] 55.0 ug/dL Normal 37.0-170.0 [facility] Comment on above: Performed By: #### I HO #### [facility] [address] [address] [address] Darius Zepeda TSHon 06-01-2021 TSH 3.277 uIU/mL Normal 0.470-4.680 [facility] Comment on above: Performed By: #### L DH, BMP, LIVER, CRP #### [facility] [address] [place] [address] Dr. Darius Zepeda TSH RANGE SEE BELOW Normal [facility] Comment on above: Result Comment: <0.3 4 UIU/ml HYPERTHYROID 0.34-5.60 UIU/ml EUTHYROID >5.60 UIU/ml HYPOTHYROID Performed By: #### L DH, BMP, LIVER, CRP #### [facility] [address] [place] [address] Dr. Darius Zepeda XR LSPINE 2_3 VIEWSon [...] CARMEL GOVEA Date: 2021-05-26 07:10 Normal [facility] CBC AUTO DIFFon 05-25-2021 BASO # 0.1 103/ul Normal 0.0-0.1 [facility] Comment on above: Performed By: #### L DH, BMP, LIVER, CRP #### [facility] [address] [address] [address] Darius Zepeda Basophils/100 WBC (Bld) 0.6 % Normal 0.2-2.0 [facility] Comment on above: Performed By: #### L DH, BMP, LIVER, CRP #### [facility] [address] [address] [address] Darius Zepeda EO # 0.1 103/ul Normal 0.0-0.7 [facility] Comment on above: Performed By: #### L DH, BMP, LIVER, CRP #### [facility] [address] [address] [address] Darius Zepeda Eosinophils/100 WBC (Bld) 1.0 % Normal 0.9-7.0 [facility] Comment on above: Performed By: #### L DH, BMP, LIVER, CRP #### [facility] [address] [address] [address] Darius Zepeda Erythrocyte distribution width (RBC) [Ratio] 14.0 % Normal 11.0-15.0 [facility] Comment on above: Performed By: #### L DH, BMP, LIVER, CRP #### [facility] [address] [place] [address] Dr. Darius Zepeda Hematocrit (Bld) [Volume fraction] 38.4 % Normal 36.0-48.0 [facility] Comment on above: Performed By: #### L DH, BMP, LIVER, CRP #### [facility] [address] [place] [address] Dr. Darius Zepeda Hemoglobin (Bld) [Mass/Vol] 11.9 g/dL Critically low 12.0-16.0 [facility] Comment on above: Performed By: #### L DH, BMP, LIVER, CRP #### [facility] [address] [place] [address] Dr. Darius Zepeda IG # 0.02 10e3/ul Normal 0.00-0.03 [facility] Comment on above: Performed By: #### L DH, BMP, LIVER, CRP #### [facility] [address] [place] [address] Dr. Darius Zepeda IG % 0.2 % Normal 0.0-0.5 [facility] Comment on above: Performed By: #### L DH, BMP, LIVER, CRP #### [facility] [address] [place] [address] Dr. Darius Zepeda LYMPH # 2.2 103/ul Normal 1.2-3.8 [facility] Comment on above: Performed By: #### L DH, BMP, LIVER, CRP #### [facility] [address] [place] [address] Dr. Darius Zepeda Lymphocytes/100 WBC (Bld) 24.0 % Normal 20.5-60.0 [facility] Comment on above: Performed By: #### L DH, BMP, LIVER, CRP #### [facility] [address] [place] [address] Dr. Darius Zepeda MANUAL DIFF REQ NO Normal [facility] Comment on above: Performed By: #### L DH, BMP, LIVER, CRP #### [facility] [address] [place] [address] Dr. Darius Zepeda MCH (RBC) [Entitic mass] 25.5 pg Critically low 26.7-34.0 [facility] Comment on above: Performed By: #### L DH, BMP, LIVER, CRP #### [facility] [address] [place] [address] Dr. Darius Zepeda MCHC (RBC) [Mass/Vol] 31.0 g/dL Normal 29.9-35.2 [facility] Comment on above: Performed By: #### L DH, BMP, LIVER, CRP #### [facility] [address] [place] [address] Dr. Darius Zepeda MCV (RBC) [Entitic vol] 82.2 fL Normal 81.0-99.0 [facility] Comment on above: Performed By: #### L DH, BMP, LIVER, CRP #### [facility] [address] [place] [address] Dr. Darius Zepeda MONO # 0.6 103/ul Normal 0.3-0.8 [facility] Comment on above: Performed By: #### L DH, BMP, LIVER, CRP #### [facility] [address] [place] [address] Dr. Darius Zepeda Monocytes/100 WBC (Bld) 6.5 % Normal 1.7-12.0 [facility] Comment on above: Performed By: #### L DH, BMP, LIVER, CRP #### [facility] [address] [place] [address] Dr. Darius Zepeda NEUT # 6.1 103/ul Normal 1.4-6.5 [facility] Comment on above: Performed By: #### L DH, BMP, LIVER, CRP #### [facility] [address] [place] [address] Dr. Darius Zepeda Neutrophils/100 WBC (Bld) 67.7 % Normal 43.0-75.0 [facility] Comment on above: Performed By: #### L DH, BMP, LIVER, CRP #### [facility] [address] [place] [address] Dr. Darius Zepeda Platelet mean volume (Bld) [Entitic vol] 9.6 fL Normal 9.5-13.5 [facility] Comment on above: Performed By: #### L DH, BMP, LIVER, CRP #### [facility] [address] [address] [address] Darius Zepeda PLT 228 103/ul Normal 150-450 [facility] Comment on above: Performed By: #### L DH, BMP, LIVER, CRP #### [facility] [address] [address] [address] Darius Zepeda RBC 4.67 106/ul Normal 4.20-5.40 [facility] Comment on above: Performed By: #### L DH, BMP, LIVER, CRP #### [facility] [address] [place] [address] Dr. Darius Zepeda WBC 9.0 103/ul Normal 4.0-11.0 [facility] Comment on above: Performed By: #### L DH, BMP, LIVER, CRP #### [facility] [address] [place] [address] Dr. Darius Zepeda PROF 14(COMP METB)on 021 Albumin [Mass/Vol] 3.8 g/dL Normal 3.5-5.0 [facility] Comment on above: Performed By: #### L DH, BMP, LIVER, CRP #### [facility] [address] [place] [address] Dr. Darius Zepeda Albumin/Globulin [Mass ratio] 0.9 {ratio} Normal [facility] Comment on above: Performed By: #### L DH, BMP, LIVER, CRP #### [facility] [address] [place] [address] Dr. Darius Zepeda ALP [Catalytic activity/Vol] 94 U/L Normal 38-126 [facility] Comment on above: Performed By: #### L DH, BMP, LIVER, CRP #### [facility] [address] [place] [address] Dr. Darius Zepeda ALT [Catalytic activity/Vol] 27 U/L Normal 9-52 [facility] Comment on above: Performed By: #### L DH, BMP, LIVER, CRP #### [facility] [address] [place] [address] Dr. Darius Zepeda Anion gap [Moles/Vol] 13.3 mmol/L Normal [facility] Comment on above: Performed By: #### L DH, BMP, LIVER, CRP #### [facility] [address] [address] [address] Darius Zepeda AST [Catalytic activity/Vol] 16 U/L Normal 14-36 [facility] Comment on above: Performed By: #### L DH, BMP, LIVER, CRP #### [facility] [address] [address] [address] Darius Zepeda Bilirubin [Mass/Vol] 0.5 mg/dL Normal 0.2-1.3 [facility] Comment on above: Performed By: #### L DH, BMP, LIVER, CRP #### [facility] [address] [place] [address] Dr. Darius Zepeda Calcium [Mass/Vol] 9.5 mg/dL Normal 8.4-10.2 [facility] Comment on above: Performed By: #### L DH, BMP, LIVER, CRP #### [facility] [address] [place] [address] Dr. Darius Zepeda Chloride [Moles/Vol] 103 mmol/L Normal 98-107 [facility] Comment on above: Performed By: #### L DH, BMP, LIVER, CRP #### [facility] [address] [place] [address] Dr. Darius Zepeda CO2 [Moles/Vol] 27.2 mmol/L Normal 22.0-30.0 [facility] Comment on above: Performed By: #### L DH, BMP, LIVER, CRP #### [facility] [address] [place] [address] Dr. Darius Zepeda Creatinine [Mass/Vol] 0.98 mg/dL Normal 0.52-1.04 [facility] Comment on above: Performed By: #### L DH, BMP, LIVER, CRP #### [facility] [address] [address] [address] Darius Zepeda EGFR-AF GUINEAN >60 Normal >=60 [facility] Comment on above: Performed By: #### L DH, BMP, LIVER, CRP #### [facility] [address] [address] [address] Darius Zepeda EGFR-NON AF GUINEAN 55 mL/min/1.73m2 Critically low >=60 [facility] Comment on above: Performed By: #### L DH, BMP, LIVER, CRP #### [facility] [address] [place] [address] Dr. Darius Zepeda Globulin (S) [Mass/Vol] 4.2 g/dL Normal [facility] Comment on above: Performed By: #### L DH, BMP, LIVER, CRP #### [facility] [address] [address] [address] Darius Zepeda Glucose [Mass/Vol] 109 mg/dL Critically high 74-106 [facility] Comment on above: Performed By: #### L DH, BMP, LIVER, CRP #### [facility] [address] [place] [address] Dr. Darius Zepeda Potassium [Moles/Vol] 3.5 mmol/L Normal 3.4-5.0 [facility] Comment on above: Performed By: #### L DH, BMP, LIVER, CRP #### [facility] [address] [place] [address] Dr. Darius Zepeda Protein [Mass/Vol] 8.0 g/dL Normal 6.1-8.2 [facility] Comment on above: Performed By: #### L DH, BMP, LIVER, CRP #### [facility] [address] [place] [address] Dr. Darius Zepeda Sodium [Moles/Vol] 140 mmol/L Normal 137-145 [facility] Comment on above: Performed By: #### L DH, BMP, LIVER, CRP #### [facility] [address] [place] [address] Dr. Darius Zepeda Urea nitrogen [Mass/Vol] 19.0 mg/dL Critically high 7.0-17.0 [facility] Comment on above: Performed By: #### L DH, BMP, LIVER, CRP #### [facility] [address] [place] [address] Dr. Darius Zepeda Urea nitrogen/Creatinin e [Mass ratio] 19.4 mg/mg Normal [facility] Comment on above: Performed By: #### L DH, BMP, LIVER, CRP #### [facility] [address] [address] [address] Darius Zepeda Vital Signs Date Time Vital Sign Value Performing Clinician Facility 02-16-2022 13:09-0400 Blood Pressure Location Tello NILL [facility] [place] 02-16-2022 13:09-0400 Diastolic blood pressure 86 mm[Hg] Tello NILL [facility] 02-16-2022 13:09-0400 Heart rate 74 /min Tello NILL [facility] [place] 02-16-2022 13:09-0400 Respiratory rate 16 /min Tello NILL [facility] [place] 02-16-2022 13:09-0400 Systolic blood pressure 122 mm[Hg] Tello NILL [facility] 01-25-2022 15:04-0400 Body height 164 cm Joey Kruger MD Work Phone: [facility] 01-25-2022 15:04-0400 Body temperature 97.11 [degF] Joey Kruger MD Work Phone: [facility] 01-25-2022 15:04-0400 Body weight 81.19 kg Joey Kruger MD Work Phone: [facility] 01-25-2022 15:04-0400 Diastolic blood pressure 79 mm[Hg] Joey Kruger MD Work Phone: [facility] 01-25-2022 15:04-0400 Heart rate 76 /min Joey Kruger MD Work Phone: [facility] 01-25-2022 15:04-0400 Respiratory rate 16 /min Joey Kruger MD Work Phone: [place] [address]-22-2022 15:04-0400 SaO2% (BldA) [Mass fraction] 98 % Joey Kruger MD Work Phone: [facility] 01-25-2022 15:04-0400 Systolic blood pressure 152 mm[Hg] Joey Kruger MD Work Phone: [facility] Encounters Encounter Date Encounter Type Care Provider Facility Start: 03-31-2022 End: 04-01-2022 ambulatory Tello CARMONA Facility: [facility] Start: 03-31-2022 End: 03-31-2022 Patient encounter procedure Tello CARMONA [facility] Start: 03-10-2022 Encounter for preprocedural laboratory examination DR TELLO CARMONA [facility] Start: 03-10-2022 End: 03-11-[address] [...] HAMILTON Facility:[facility] Start: 12-11-2021 End: 12-12-2021 ambulatory ADOPTION COORDINATOR ROSITA AICHCARMELLA Facility:[facility] Start: 12-04-2021 End: 12-05-2021 ambulatory ADOPTION COORDINATOR ROSITATyra WATSONZ Facility:[facility] Start: 12-02-2021 End: 12-03-[address] BIRGIT HAMILTON Facility:[facility] Start: 11-11-2021 End: 11-12-2021 ambulatory ADOPTION COORDINATOR ROSITATyra SCHAFFER Facility:[facility] Start: 11-04-2021 End: 11-05-[address] BIRGIT HAMILTON Facility:[facility] Start: 06-01-2021 End: 06-02-2021 ambulatory ADOPTION COORDINATOR ROSITA AICBryanCARMELLA Facility:[facility] Start: 05-25-2021 End: 05-26-2021 ambulatory ADOPTION COORDINATOR ROSITA AICHHOLZ Facility:[facility] Start: 04-14-2021 End: 04-15-2021 [...] Author Start: 01-25-2025 DIABETES SCREEN DIABETES SCREEN [facility] Start: 02-04-2022 Influenza vaccination INFLUENZA (#1) [facility] Start: 06-06-2021 ADVANCE DIRECTIVE DISCUSSION ADVANCE DIRECTIVE DISCUSSION [facility] Start: 2012 BONE DENSITY BONE DENSITY [facility] Start: 2012 PNEUMOCOCCAL: 65+ (1 - PCV) PNEUMOCOCCAL: 65+ (1 - PCV) [facility] Start: 1997 SHINGRIX VACCINE (1 of 2) SHINGRIX V ACCINE (1 of 2) [facility] Start: 1992 COLOGUARD (FIT-DNA) COLOGUARD (FIT-D NA) [facility] Start: 1992 Colonoscopy COLONOSCOPY [facility] Start: 1992 COLORECTAL CANCER SCREENING COLORECTAL CANCER SCREENING [facility] Start: [address] COLONOGRAPHY [facility] Start: 1992 DIABETES SCREEN DIABETES SCREEN [facility] Start: 1992 FECAL OCCULT BLOOD FECAL OCCULT BLOO D [facility] Start: 1992 LIPID SCREEN LIPID SCREEN [facility] Start: 1992 SIGMOIDOSCOPY SIGMOIDOSCOPY [facility] Start: 1987 Mammography MAMMOGRAM [facility] Start: 1966 Urine microalbumin profile DTAP,TDAP ,TD (1 - Tdap) [facility] Start: 1965 [facility]IT[facility] Start: 1959 Adult depression scr [facility] assessment DEPRESSION SCREENING [facility] Start: 1947 COVID-19 VACCINE (#1) COVID-19 VACCI NE (#1) [facility] Immunizations Immunization Date Immunization Notes Care Provider [facility] 01-23-2022 COVID-19 vaccine, fu ll dose (MODERNA) Joey Kruger MD Work Phone: [facility] 04-14-2021 COVID-19 vaccine, fu ll dose (MODERNA) Joey Kruger MD Work Phone: [facility] 08-27-2020 COVID-19 vaccine, fu ll dose (MODERNA) Joey Kruger MD Work Phone: [facility] 07-21-2020 COVID-19 vaccine, fu ll dose (MODERNA) Joey Kruger MD Work Phone: [facility] Payers Date Payer Category Payer Medicaid MEDICAID [facility] MEDICAID [id number] 2022-2022 [address] [place] [address] Medicaid [id number] 1993 Medicare MEDICARE MEDICAR E A AND B [id number] 1993-2022 [address] [address] [place] [address] Medicare [id number] 1959 Medicaid [id number] 1959 Medicare [id number] 1959 Self-pay [id number] 1947 Unknown [id number] [id number] 1947 Unknown [id number] [id number] 1947 Unknown [id number] 2.16.840.1.882390.3.579.2.593 1947 Unknown [id number] 2.16.840.1.802539.3.579.2.593 1947 Unknown [id number] 2.16.840.1.138011.3.579.2.593 1947 Unknown [id number] 2.16.840.1.767770.3.579.2.593 1947 Unknown [id number] 2.16.840.1.235521.3.579.2.593 1947 Unknown [id number] 2.16.840.1.122392.3.579.2.593 1947 Unknown [id number] 2.16.840.1.204898.3.579.2.593 1947 Unknown [id number] 2.16.840.1.491317.3.579.2.593 1947 Unknown [id number] 2.16.840.1.334158.3.579.2.593 1947 Unknown [id number] 2.16.840.1.777725.3.579.2.593 1947 Unknown [id number] 2.16.840.1.047545.3.579.2.727 1947 Unknown [id number] 2.16.840.1.768348.3.579.2.727 1947 Unknown [id number] 2.16.840.1.636137.3.579.2.727 1947 Unknown [id number] 2.16.840.1.030694.3.579.2.727 Unknown [id number] [id number] Social History Date Type Detail Facility Start: 10-16-2013 End: 02-16-2022 Tobacco smoking status NHIS Never smoked tobacco [facility] Start: 10-16-2013 End: 01-25-2022 Tobacco use and exposure Smokeless tobacco non-user [facility] Start: 01-22-2022 End: 01-25-2022 Alcohol intake Current non-drinker of alcohol (finding) [facility] Start: 1945 Sex Assigned At Not on file [facility] History of tobacco use Passive smoker [facility] Start: 01-15-2022 End: 01-25-2022 Exposure to SARS-CoV-2 (event) Not sure [facility] Tobacco smoking status Never [facility] [place] Sex Assigned At Female [facility] [place] Functional Status Date Assessment Result Facility 02-16-2022 Functional Status N/A General [address] [facility] Clinical Notes 01-25-2022 to 03-10-2022 [...] good condition. CC: Rosita Schaffer CNP [facility] 02-16-2022 Note Chief Complaint consultation for abnormal [...] Tobacco Use:., 02/04 (more content not included)... [facility] Comment on above: Result Comment: Elec tronically Signed By: DANNY HINDS, Tello Kwon\Date and Time Signed: 02/16/22 14:37 EDT 02-03-2022 Note HNO ID: [id number] Author: Joey Kruger MD Service: ? Author Type: Physician Type: Progress Notes Filed: 02/07/2022 12:04 AM Note Text: NAME: Maria InesRiana hall [facility] NO.: [id number] DATE OF SERVICE: February 03, 2022 Some [...] with but also will need records from [facility] with respect to both pathology and [...] 01/25/2022) hydrochlorothiazide (HYDRODIU (more content not included)... [facility] 01-25-2022 Note HNO ID: [id number] Author: Joey Kruger MD Service: ? Author Type: Physician Type: Progress Notes Filed: 02/01/2022 8:13 PM Note Text: NAME: Riana Garcia NO.: [id number] DATE OF SERVICE: January 25, 2022 Referring [...] with but also will need records from [facility] with respect to both pathology and surgery. She is also scheduled to have a thyroid nodule biopsied. 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 PLAN: 1. Need path and [place] [facility] [place]. Labs drawn today [...] 11.5 Hematocrit (%) (more content not included)... [facility] 01-25-2022 Instructions Joey Kruger MD - 01/25/2022 3:34 PM EDT 1. Need path and surgery records [place] [facility] [place] 2. Labs drawn today 3. RTC in 9 days to discuss 4. Keep appointment for thyroid nodule biopsy documented in this encounter [facility] 01-25-2022 History of Presen t illness Narrative Images from the original note were not included. NAME: Jose Riana VERENA NO.: [id number] DATE OF SERVICE: January 25, 2022 Referring [...] with but also will need records from [facility] with respect to both pathology and surgery. She is also scheduled to have a thyroid nodule biopsied. 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 PLAN: 1. Need path and surgery records [place] [facility] [place] 2. Labs drawn today [...] which included preparing to see the patient, [id number] patient care, completing clinical documentation, obtaining and/or reviewing separately obtained history, performing a medically appropriate examination, counseling and educating the patient/family/caregiver, ordering medications, tests, or procedures, communicating with other HCPs (not separately reported), and independently interpreting results (not separately reported). Joey Kruger MD, CPE [facility]ology [facility] Oncology Services Provided at: [place], [place] CC: NGUYENROSITA Rutledge [address] [facility] [place] [address] Sary Holt MD [address] [facility] [place] [address] documented in this encounter [facility] 01-25-2022 Nurse Note Patient had a Covid booster Tuesday and her Left arm (at injections site) is red with a muckleshoot around it, she wonders if it is an allergic reaction? 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 Malignant neoplasm of colon, unspecified part of colon (HCC) [facility] Discharge instructions No data available for this section [facility] [place] Progress note No data available for this section [facility] [place] Summary Purpose Family History No Family History Records FoundNo Family History Records FoundNo Family History Records FoundNo Family History Records Found Advance Directives No Advanced Directives Records FoundNo Advanced Directives Records FoundNo Advanced Directives Records FoundNo Advanced Directives Records Found Additional Source Comments INFORMATION SOURCE (unrecogn ized section and content) DATE CREATED AUTHOR 01/05/2022 [facility] DATE CREATED AUTHOR AUTHOR'S ORGANIZ ATION 02/06/2022 [facility] DATE CREATED AUTHOR AUTHOR'S ORGANIZ ATION 03/28/2022 [facility] DATE CREATED AUTHOR AUTHOR'S ORGANIZ ATION 04/19/2022 [facility] Source Comments (unrecognize d section and content) In the event this informatio n is protected by the Federal Confidentiality of Alcohol and Drug Abuse Patient Records regulations: The Federal rules restrict any use of the information to criminally investigate or prosecute any alcohol or drug abuse patient[facility] the event this information is protected by the Federal Confidentiality of Alcohol and Drug Abuse Patient Records regulations: The Federal rules restrict any use of the information to criminally investigate or prosecute any alcohol or drug abuse patient.[facility] Care Teams (unrecognized sec tion and content) Insulation Machine Operator Relationship Specialty Start Date End Date Sary Holt MD [address] [place] [address] PCP - General Family Practice 09/27/13 Insulation Machine Operator Relationship Specialty Start Date End Date Sary Holt MD [address] [place] [address] PCP - General Family Practice 09/27/13 Reason [...] BE BASED ON THE PRIMARY CLINICAL RECORDS. [facility] [employer] [facility]. provides no warranty or guarantee of the accuracy or completeness of information in this document.
[2023-06-03] MEDS: LACTATED RINGER'S SOLUTION 1,000 ML 100 ML IV (21:52)
[2023-06-03] MEDS: CARBIDOPA/LEVODOPA 25 MG-100 MG TABLET 0.5 TAB PO (21:53)
[2023-06-03] MEDS: CARVEDILOL 12.5 MG TABLET PO (21:53)
[2023-06-04] VITALS (12 sets, daily range): BP systolic 132–144; BP diastolic 72–82; PULSE 67–83; RESP 16–18; TEMP 36.6–36.8; O2SAT 92–94
[2023-06-04] MEDS: CARBIDOPA/LEVODOPA 25 MG-100 MG TABLET 0.5 TAB PO ×2 (05:09→14:12)
[2023-06-04 05:23] LABS: Basophils Percent Auto 0.5 % (0.2-2.0); Eosinophils Absolute Auto 0.1 10^3/uL (0.0-0.7); Eosinophils Percent Auto 1.4 % (0.9-7.0); Hematocrit 32.4 % (36.0-48.0); Hemoglobin 10.2 g/dL (12.0-16.0); Immature Granulocytes Abs Auto 0.02 10^3/uL (0.00-0.03); Immature Granulocytes Pct Auto 0.2 % (0.0-0.5); Lymphocytes Absolute Auto 2.4 10^3/uL (1.2-3.8); Mean Corpuscular HGB Conc 31.5 g/dL (29.9-35.2); Mean Corpuscular Volume 82.7 fL (81.0-99.0); Mean Platelet Volume 9.7 fL (9.5-13.5); Monocytes Absolute Auto 0.8 10^3/uL (0.3-0.8); Monocytes Percent Auto 8.8 % (1.7-12.0); Neutrophils Absolute Auto 5.3 10^3/uL (1.4-6.5); Neutrophils Percent Auto 61.1 % (43.0-75.0); Platelet Count 190 10^3/uL (150-450); Red Blood Count 3.92 10^6/uL (4.20-5.40); Red Cell Distribution Width 12.9 % (11.0-15.0); White Blood Count 8.7 10^3/uL (4.0-11.0)
[2023-06-04 05:40] LABS: Alanine Aminotransferase 10 U/L (14-59); Albumin Globulin Ratio 0.8; Albumin Level 2.8 g/dL (3.4-5.0); Alkaline Phosphatase 66 U/L (46-116); Anion Gap 12.2; Aspartate Amino Transferase 25 U/L (15-37); BUN Creatinine Ratio 35.2; Bilirubin Total 0.7 mg/dL (0.2-1.0); Calcium 8.7 mg/dL (8.5-10.1); Carbon Dioxide 28.6 mmol/L (21.0-32.0); Chloride 103 mmol/L (98-107); Estimated GFR (African America 49 (>=60); Estimated GFR (Non-African Ame 41 (>=60); Globulin 3.4 g/dL; Glucose 85 mg/dL (74-106); Sodium 141 mmol/L (136-145); Total Protein 6.2 g/dL (6.4-8.2)
[2023-06-04 05:45] LABS: Potassium 2.8 mmol/L (3.5-5.1)
[2023-06-04] MEDS: LACTATED RINGER'S SOLUTION 1,000 ML 100 ML IV (07:58)
[2023-06-04] MEDS: POTASSIUM CHLORIDE 40 MEQ in 0.9 % SODIUM CHLORIDE 250 ML 67.5 MEQ IV (10:15)
--- NOTE | 2023-06-04 10:17 | PM.GSCN ---
History of Present Illness Consult details Consult date: 06/04/23 Reason for consult: abdominal pain Requesting physician: Jluis Long Narrative: Kate Garcia is a 78-year-old female who presented to the Emergency Department on a 2nd occasion after she checked out against medical advice yesterday morning. She presented the night before with symptoms of small bowel obstruction with nausea and vomiting and abdominal pain. She states that her abdominal pain today is located in the right lower quadrant and rates it as a one out of ten and is much better than it was two days ago. She has had diarrhea. She also complains of constipation which is new since she began medications for Parkinson's disease. She checked out yesterday against medical advice due to being her sisters caregiver who also has Parkinson's disease and cannot take care of herself. She checked her sister and to the [facility] while she is in the hospital. Patient denies any past history of tobacco or alcohol use. 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 She had a colon resection performed twenty years ago at [facility] for colon cancer were then removed eighty-five percent of her colon but she doesn't know which side the colon cancer was on. She did not require any further therapy. He has not had a colonoscopy in over ten years. She denies any rectal bleeding melena hematochezia weight loss or decreased appetite. I was asked to evaluate due to possible small bowel obstruction found on CT scan performed night without oral contrast. A small bowel series had been ordered for yesterday but she checked out AGAINST MEDICAL ADVICE and then a small bowel series was again ordered last night but was not performed in the order was lost somewhere in the EMR and this has been reported to information technology. She is feeling much better this morning. Review of Systems ROS Status of ROS 10 or more systems reviewed and unremarkable except as noted in history and below [facility] Medical History (Updated 06/04/23 @ 10:28 by J Luis Rose MD) Colon cancer ?C18.9 - Malignant neoplasm of colon, unspecified (ICD-10) Parkinsons disease ?G20.A1 - Parkinson's disease without dyskinesia, without mention of fluctuations (ICD-10) COPD (chronic obstructive pulmonary disease) ?J44.9 - Chronic obstructive pulmonary disease, unspecified (ICD-10) HTN (hypertension) ?I10 - Essential (primary) hypertension (ICD-10) Surgical History History of colectomy ?Z90.49 - Acquired absence of other specified parts of digestive tract (ICD-10) Family History Father Family history of cancer Family history of hypertension Mother Family history of hypertension Sister Family history of hypertension Social History (Updated 06/03/23 @ 21:01 by Mary Joseph) Within the past year, how often did you have a drink containing alcohol: never Within the past year, how often did you have six or more drinks on one occasion: never Score interpretation: A score less than 3 is consistent with normal alcohol consumption. 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 Known occupational exposures/hazards: No Highest level of school completed/degree received: high school graduate Do you want help with school or training: No Are you now , , , , never or living with a partner: In a typical week, how many times do you talk on the telephone with family, friends, or neighbors: 3 or more times per week How often do you get together with friends or relatives: 3 or more times per week How often do you attend scientologist or gnosticist services: never Do you belong to any clubs or organizations such as scientologist groups unions, fraternal or athletic groups, or school groups: no Total score: 1 Score interpretation: A score of less than or equal to 1 indicates the most socially isolated. Little interest or pleasure in doing things: several days Feeling down, depressed, or hopeless: several days Feel stressed/tense/nervous/anxious/difficulty sleeping: very much Life stressor details: caregiver stress Due to disability, difficulty making decisions: No Do you think of yourself as: straight/heterosexual Gender Identity: female Meds Home Medications and Allergies Home Medications Medication Instructions Recorded Confirmed Type carbidopa 25 mg-levodopa 100 mg 0.5 tab PO TID 06/02/23 06/03/23 History tablet carvedilol 12.5 mg tablet 12.5 mg PO BID 06/02/23 06/03/23 History ferrous sulfate 325 mg (65 mg 325 mg PO QDAY 06/02/23 06/03/23 History iron) tablet hydrochlorothiazide 12.5 mg tablet 12.5 mg PO DAILY 06/02/23 06/03/23 History losartan 50 mg tablet 50 mg PO QDAY 06/02/23 06/03/23 History Allergies Allergy/AdvReac Type Severity Reaction Status Date / Time No Known Drug Allergies Allergy Verified 06/03/23 14:50 Exam Constitutional Vital Signs, click to edit/add: Last Vital Signs Temp 97.8 F 06/04/23 03:54 Pulse 78 06/04/23 09:56 Resp 18 06/04/23 08:03 BP 144/73 H 06/04/23 08:03 Pulse Ox 92 L 06/04/23 09:00 O2 Del Method Room Air 06/04/23 09:00 Documenting provider has reviewed patient's vital signs: yes Common normals: no apparent distress, average body habitus, oriented x3 and well nourished General appearance: cooperative, comfortable and well developed Orientation/consciousness: Yes awake, Yes oriented to person, Yes oriented to place and Yes oriented to time Respiratory Common normals: clear to auscultation bilaterally Cardio Common normals: regular rate, regular rhythm and no murmurs GI Common normals: Normal to inspection, nondistended, normoactive bowel sounds present, soft to palpation, non-tender, no hepatosplenomegaly and no masses Inspection: other (healed midline incision from prior surgery) Neuro Common normals: oriented x3, CN's II-XII intact bilaterally, moves all extremities and no focal motor deficits Results Labs Labs: Abnormal lab results 06/03/23 06/04/23 Range/Units 16:34 05:08 WBC 13.3 H (4.0-11.0) 10^3/uL RBC 3.92 L (4.20-5.40) 10^6/uL Hgb 11.5 L 10.2 L (12.0-16.0) g/dL Hct 35.9 L 32.4 L (36.0-48.0) % MCH 26.6 L 26.0 L (26.7-34.0) pg Neut % (Auto) 77.1 H (43.0-75.0) % Lymph % (Auto) 13.8 L (20.5-60.0) % Eos % (Auto) 0.2 L (0.9-7.0) % Neut # (Auto) 10.2 H (1.4-6.5) 10^3/uL [place] # (Auto) 1.1 H (0.3-0.8) 10^3/uL Abs Immat Gran (auto) 0.04 H (0.00-0.03) 10^3/uL Potassium 2.8 L* (3.5-5.1) mmol/L BUN 45.0 H (7.0-18.0) mg/dL Creatinine 1.28 H (0.55-1.02) mg/dL Est GFR ( Amer) 49 L (>=60) Est GFR (Non-Af Amer) 41 L (>=60) ALT 10 L (14-59) U/L Total Protein 6.2 L (6.4-8.2) g/dL Albumin 2.8 L (3.4-5.0) g/dL Diabetes panel 06/04/23 Range/Units 05:08 Sodium 141 (136-145) mmol/L Potassium 2.8 L* (3.5-5.1) mmol/L Chloride 103 (98-107) mmol/L Carbon Dioxide 28.6 (21.0-32.0) mmol/L BUN 45.0 H (7.0-18.0) mg/dL Creatinine 1.28 H (0.55-1.02) mg/dL Glucose 85 (74-106) mg/dL Calcium 8.7 (8.5-10.1) mg/dL AST 25 (15-37) U/L ALT 10 L (14-59) U/L Alkaline Phosphatase 66 (46-116) U/L Total Protein 6.2 L (6.4-8.2) g/dL Albumin 2.8 L (3.4-5.0) g/dL Calcium panel 06/04/23 Range/Units 05:08 Calcium 8.7 (8.5-10.1) mg/dL Albumin 2.8 L (3.4-5.0) g/dL Pituitary panel 06/04/23 Range/Units 05:08 Sodium 141 (136-145) mmol/L Potassium 2.8 L* (3.5-5.1) mmol/L Chloride 103 (98-107) mmol/L Carbon Dioxide 28.6 (21.0-32.0) mmol/L BUN 45.0 H (7.0-18.0) mg/dL Creatinine 1.28 H (0.55-1.02) mg/dL Glucose 85 (74-106) mg/dL Calcium 8.7 (8.5-10.1) mg/dL Adrenal panel 06/04/23 Range/Units 05:08 Sodium 141 (136-145) mmol/L Potassium 2.8 L* (3.5-5.1) mmol/L Chloride 103 (98-107) mmol/L Carbon Dioxide 28.6 (21.0-32.0) mmol/L BUN 45.0 H (7.0-18.0) mg/dL Creatinine 1.28 H (0.55-1.02) mg/dL Glucose 85 (74-106) mg/dL Calcium 8.7 (8.5-10.1) mg/dL Total Bilirubin 0.7 (0.2-1.0) mg/dL AST 25 (15-37) U/L ALT 10 L (14-59) U/L Alkaline Phosphatase 66 (46-116) U/L Total Protein 6.2 L (6.4-8.2) g/dL Albumin 2.8 L (3.4-5.0) g/dL All other labs normal. Imaging Abdominal x-ray: report reviewed and image reviewed Abdomen CT scan report/results: report reviewed and image reviewed Assessment and Plan Assessment and Plan (1) Right lower quadrant abdominal pain: (2) Bowel obstruction: Qualifiers: Intestinal obstruction type: unspecified (3) Parkinsons disease: (4) COPD (chronic obstructive pulmonary disease): (5) HTN (hypertension): (6) History of colectomy: (7) Hypokalemia: Plan no clinical evidence of bowel obstruction presently; small bowel series had been ordered last evening but for some reason the order disappeared from the EMR. This was reported information technology. She doesn't need it. I would recommend that she have a outpatient colonoscopy within the next month and she was instructed to call my office after the of the year to arrange for this to be done as an outpatient. Her last colonoscopy was ten years ago. She has a history of colon cancer resected twenty years ago at [facility]. She did not require chemotherapy postoperatively. She does report constipation which she thinks is related to the new medication prescribed for her Parkinson's disease which started about two months ago.
--- NOTE | 2023-06-04 17:58 | P.HP_ITS ---
H&P: HPI History of Present Illness Chief complaint: CONSTIPATION BOWEL OBSTRUCTION Narrative: 78 y/o female to ER with abdominal pain. Admitted 06/02 with SBO and NG placed. Patient left AMA prior to seen by surgeon. Continued to have pain and nausea. Emesis at home and returned to ER. X-ray without obstruction. Continued pain and admitted. Kept NPO and small bowel series ordered but did not process. Improved overnight and minimal pain in RLQ. Seen by surgeon and felt not obstruction. Afebrile. Reports diarrhea in ER and passing gas this am. Review of Systems ROS Constitutional Denies: fever, chills or night sweats Respiratory Denies: shortness of breath, cough or wheezing Gastrointestinal Reports: abdominal pain, nausea, vomiting and diarrhea Genitourinary Denies: painful urination PFSH [facility] Medical History (Updated 06/04/23 @ 11:18 by Renato Friedman MD) Bowel obstruction ?K56.609 - Unspecified intestinal obstruction, unspecified as to partial versus complete obstruction (ICD-10) Bowel obstruction ?K56.609 - Unspecified intestinal obstruction, unspecified as to partial versus complete obstruction (ICD-10) Colon cancer ?C18.9 - Malignant neoplasm of colon, unspecified (ICD-10) Surgical History History of colectomy ?Z90.49 - Acquired absence of other specified parts of digestive tract (ICD- 10) Family History Father Family history of cancer Family history of hypertension Mother Family history of hypertension Sister Family history of hypertension Social History (Updated 06/03/23 @ 21:01 by Mary Joseph) Within the past year, how often did you have a drink containing alcohol: never Within the past year, how often did you have six or more drinks on one occasion: never Score interpretation: A score less than 3 is consistent with normal alcohol consumption. 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 Known occupational exposures/hazards: No Highest level of school completed/degree received: high school graduate Do you want help with school or training: No Are you now , , , , never or living with a partner: In a typical week, how many times do you talk on the telephone with family, friends, or neighbors: 3 or more times per week How often do you get together with friends or relatives: 3 or more times per week How often do you attend restorationism or latter day services: never Do you belong to any clubs or organizations such as restorationism groups unions, fraternal or athletic groups, or school groups: no Total score: 1 Score interpretation: A score of less than or equal to 1 indicates the most socially isolated. Little interest or pleasure in doing things: several days Feeling down, depressed, or hopeless: several days Feel stressed/tense/nervous/anxious/difficulty sleeping: very much Life stressor details: caregiver stress Due to disability, difficulty making decisions: No Do you think of yourself as: straight/heterosexual Gender Identity: female Meds Home Medications and Allergies Home Medications Medication Instructions Recorded Confirmed Type carbidopa 25 mg-levodopa 100 mg 0.5 tab PO TID 06/02/23 06/03/23 History tablet carvedilol 12.5 mg tablet 12.5 mg PO BID 06/02/23 06/03/23 History ferrous sulfate 325 mg (65 mg 325 mg PO QDAY 06/02/23 06/03/23 History iron) tablet hydrochlorothiazide 12.5 mg tablet 12.5 mg PO DAILY 06/02/23 06/03/23 History losartan 50 mg tablet 50 mg PO QDAY 06/02/23 06/03/23 History Allergies Allergy/AdvReac Type Severity Reaction Status Date / Time No Known Drug Allergies Allergy Verified 06/03/23 14:50 Exam Constitutional Vital Signs, click to edit/add: Last Vital Signs Temp 98.2 F 06/04/23 14:10 Pulse 80 06/04/23 14:10 Resp 18 06/04/23 14:10 BP 132/82 06/04/23 14:10 Pulse Ox 94 L 06/04/23 14:10 O2 Del Method Room Air 06/04/23 14:10 Documenting provider has reviewed patient's vital signs: yes Common normals: no apparent distress, oriented x3 and alert HENMT Common normals: normocephalic Eye Common normals: PERRL and EOMs intact bilaterally Respiratory Common normals: normal respiratory effort and clear to auscultation bilaterally GI Common normals: Normal to inspection, nondistended, normoactive bowel sounds present and non-tender Extremity Common normals: no pedal edema Results Labs Labs: Short CBC 06/04/23 Range/Units 05:08 WBC 8.7 (4.0-11.0) 10^3/uL Hgb 10.2 L (12.0-16.0) g/dL Hct 32.4 L (36.0-48.0) % Plt Count 190 (150-450) 10^3/uL BMP 06/04/23 05:08 Sodium 141 Potassium 2.8 L* Chloride 103 Carbon Dioxide 28.6 BUN 45.0 H Creatinine 1.28 H Glucose 85 Calcium 8.7 Liver Function 06/04/23 Range/Units 05:08 Total Bilirubin 0.7 (0.2-1.0) mg/dL AST 25 (15-37) U/L ALT 10 L (14-59) U/L Alkaline Phosphatase 66 (46-116) U/L Albumin 2.8 L (3.4-5.0) g/dL Assessment and Plan Assessment and Plan (1) Partial small bowel obstruction: (2) Right lower quadrant abdominal pain: (3) Hypokalemia: (4) Personal history of colon cancer: (5) HTN (hypertension): (6) COPD (chronic obstructive pulmonary disease): (7) Parkinsons disease: Plan Presented with partial SBO 06/02 and improved. Returned with pain but no obstruction. Pain resolved and passing flatus. Started clear liquids and tolerated. Advanced to regular diet and tolerated. Discharge home. F/u with surgeon in 1-2 weeks. Resume home medication as directed.
== END 2023-06-04 16:13 | disposition home or self-care (01) ==
LOC: ER 17:35 → MS 20:05
PROVIDERS: Admitting Provider Internal Medicine; Emergency Provider Emergency Medicine Emergency Medical Services; PCP Nurse Practitioner; Visit Provider Internal Medicine
DX: R10.31 Right lower quadrant pain (principal); E87.6 Hypokalemia; I10 Essential (primary) hypertension; J44.9 Chronic obstructive pulmonary disease, unspecified; G20.A1 Parkinson's disease without dyskinesia, without mention of fluctuations; Z85.038 Personal history of other malignant neoplasm of large intestine; Z90.49 Acquired absence of other specified parts of digestive tract; Z79.899 Other long term (current) drug therapy
CPT/HCPCS: 36415; 74022; 80053; 83605; 85025; 94761; 96365; 96366; 99285; G0378; J3480

== ENCOUNTER 2023-11-04 13:02 | Outpatient (OUT) | payer MEDICARE, SELFPAY ==
--- OUTSIDE RECORDS SUMMARY | 2023-11-04 13:15 | XMS_ITS | CCD ---
Author Organization [facility] Care Team Providers Care Classifier Tender Name Role Phone Sary Holt MD Primary Care Provider AICHHOLZ, ROSITA J Primary Care Physician [phone] AICHHOLZ, SURVEYOR'S ASSISTANT ROSITA Consulting Unavailable AICHHOLZ, SURVEYOR'S ASSISTANT ROSITA Primary Care Unavailable AICHHOLZ, SURVEYOR'S ASSISTANT ROSITA Attending Unavailable AICHHOLZ, SURVEYOR'S ASSISTANT ROSITA Admitting Unavailable DR BIRGIT HAMILTON V Consulting Unavailable AICHHOLZ, SURVEYOR'S ASSISTANT ROSITA Primary Care Unavailable AICHHOLZ, SURVEYOR'S ASSISTANT ROSITA Attending Unavailable AICHHOLZ, SURVEYOR'S ASSISTANT ROSITA Admitting Unavailable AICHHOLZ, SURVEYOR'S ASSISTANT ROSITA Consulting Unavailable NILL, DR JAVED Consulting Unavailable AICHHOLZ, SURVEYOR'S ASSISTANT ROSITA Primary Care Unavailable NILL, DR JAVED Attending Unavailable NILL, DR JAVED Admitting Unavailable AICHHOLZ, SURVEYOR'S ASSISTANT ROSITA Consulting Unavailable MISCDR POWER Primary Care Unavailable AICHHOLZ, SURVEYOR'S ASSISTANT ROSITA Attending Unavailable AICHHOLZ, SURVEYOR'S ASSISTANT ROSITA Admitting Unavailable DR CARMEL GOVEA Consulting Unavailable AICHHOLZ, SURVEYOR'S ASSISTANT ROSITA Consulting Unavailable AICHHOLZ, SURVEYOR'S ASSISTANT ROSITA Primary Care Unavailable AICHHOLZ, SURVEYOR'S ASSISTANT ROSITA Attending Unavailable AICHHOLZ, SURVEYOR'S ASSISTANT ROSITA Admitting Unavailable AICHHOLZ, SURVEYOR'S ASSISTANT ROSITA Consulting Unavailable AICHHOLZ, SURVEYOR'S ASSISTANT ROSITA Primary Care Unavailable AICHHOLZ, SURVEYOR'S ASSISTANT ROSITA Attending Unavailable AICHHOLZ, SURVEYOR'S ASSISTANT ROSITA Admitting Unavailable DR BIRGIT HAMILTON V Consulting Unavailable AICHHOLZ, SURVEYOR'S ASSISTANT ROSITA Primary Care Unavailable AICHHOLZ, SURVEYOR'S ASSISTANT ROSITA Attending Unavailable AICHHOLZ, SURVEYOR'S ASSISTANT ROSITA Admitting Unavailable AICHHOLZ, SURVEYOR'S ASSISTANT ROSITA Consulting Unavailable NILL, DR JAVED Consulting Unavailable AICHHOLZ, SURVEYOR'S ASSISTANT ROISTA Primary Care Unavailable NILL, DR JAVED Attending Unavailable NILL, DR JAVED Admitting Unavailable SUAD DURAN Consulting Unavailable CIELO THOMAS Unavailable AICHHOLZ, SURVEYOR'S ASSISTANT ROSITA Consulting Unavailable AICHHOLZ, SURVEYOR'S ASSISTANT ROSITA Primary Care Unavailable AICHHOLZ, SURVEYOR'S ASSISTANT ROSITA Attending Unavailable AICHHOLZ, SURVEYOR'S ASSISTANT ROSITA Admitting Unavailable SARA, DR CARMEL Bee Consulting Unavailable CIELO CERVANTES Consulting Unavailable JR, DR POWER Primary Care Unavailable CIELO CERVANTES Attending Unavailable CIELO CERVANTES Admitting Unavailable WEST, DR BIRGIT Aaron Consulting Unavailable AICHHOLZ, SURVEYOR'S ASSISTANT ROSITA Primary Care Unavailable AICHHOLZ, SURVEYOR'S ASSISTANT ROSITA Attending Unavailable AICHHOLZ, SURVEYOR'S ASSISTANT ROSITA Admitting Unavailable AICHHOLZ, SURVEYOR'S ASSISTANT ROSITA Consulting Unavailable AICHHOLZ, SURVEYOR'S ASSISTANT ROSITA Consulting Unavailable AICHHOLZ, SURVEYOR'S ASSISTANT ROSITA Primary Care Unavailable AICHHOLZ, SURVEYOR'S ASSISTANT ROSITA Attending Unavailable AICHHOLZ, SURVEYOR'S ASSISTANT ROSITA Admitting Unavailable ZIEBJAVIER, DR CARMEL Bee Consulting Unavailable JOY, DR BIRGIT Aaron Consulting Unavailable AICHHOLZ, SURVEYOR'S ASSISTANT ROSITA Primary Care Unavailable AICHHOLZ, SURVEYOR'S ASSISTANT ROSITA Attending Unavailable AICHHOLZ, SURVEYOR'S ASSISTANT ROSITA Admitting Unavailable AICHHOLZ, SURVEYOR'S ASSISTANT ROSITA Consulting Unavailable Tello CARMONA Attending Unavailable AICHHOLZ, ROSITA ROSITA Emmie Referring UnavailTello Barron Attending Unavailable Tello CARMONA Attending Unavailable Tello CARMONA Attending Unavailable CYNTHIA DAY Attending Unavailable Allergies Allergy Classification Reported Allergen(s) Allergy Type Date of Onset Reaction(s) Facility (1 source) No Known Medication Allergies; Translations: [No Known Medication Allergies] Propensity to adverse reactions (disorder) [facility] Repository Medications Current Medications Medication Drug Class(es) [...] Primary malignant neoplasm of prostate: Father. Normal [facility] Comment on above: Result Comment: Elec tronically [...] Spondylolisthesis of lumbar region Thyroid nodule Normal [facility] Reminderson 03-31-2022 Reminders - From: Yolette Cordero LPN To: N - Clinical; Sent: 03/31/2022 15:07:34 EDT Show up: 02/09/2032 07:00:00 EDT Subject: colonoscopy recall Due Date/Time: 03/10/2032 07:00:00 EDT Reminder/Recall Patient is due for screening colonoscopy 03/10/2032. Normal [facility] Outside Colonoscopyon 2021 Outside Colonoscopy [id number]#1.00CD:[address] [facility] Pathology Noteon 03-12-2022 Pathology Note [id number]#1.00CD:[address] [facility] Consultation Noteon 03-10-20 Consultation Note [id number]#1.00CD:127 [facility] Lab Reportson 03-08-2022 Lab Reports [id number]#1.00CD:127 [facility] Covid-19 PCR (CVDTB)on SARS-CoV-2 (COVID-19) RNA ROBBIN+probe Ql (Unsp spec) Not detected Normal NOT DETECTED [facility] Comment on above: Result Comment: This test is not yet approved or cleared by the [place] FDA. When there are no FDA-approved or cleared tests available, and other criteria are met, FDA can make tests available under an emergency access mechanism called an Emergency Use Authorization (EUA). The EUA for this test is supported by the [place] of Health and Human Service's (HHS's) declaration [...] consistent with SARS-CoV-2. Performed By: #### C [facility] #### [facility] [address] [place] [address] Dr. Darius Zepeda Physician Orderon 02-17-2022 Physician Order [id number]#1.00CD:[address] [facility] Ambulatory Visit Summaryon 0 02-16-2022 Ambulatory Visit [...] Spondylolisthesis of lumbar region Thyroid nodule Normal [facility] US THYROID FN ASP BXon 02-12 US THYROID FN ASP BX Begin Addendum #1 COLLECTED DATE/TIME: 02/02/2022 12:58 EDT Final Diagnosis Report for [facility] [place] (A/B) LEFT THYROID SUPERIOR NODULE, ULTRASOUND-GUIDED [...] (FNA). 2. Pathology results are pending. Normal [facility] CNOVSPon 02-03-2022 CNOVSP Visit (SP) Office (H EMA) RIANA GARCIA ([id number]) 1945 F Date Time Provider Department 02/03/22 2:45 PM JOEY KRUGER During your visit today, we recorded the following information about you: Temperature Pulse Respiration Blood pressure 97.9 degrees 75/minute 16/minute 159/81 Weight Height 81.1 kg 1.64 m Joey Kruger MD 02/07/2022 12:04 AM Signed NAME: Riana Garcia CLINIC NO.: [id number] DATE OF SERVICE: February 03, 2022 Some [...] with but also will need records from [facility] with respect to both pathology and [...] TURN ST (more content not included)... Normal [facility] B2 MICROGLOBULIN Bon 022 Xbsy-4-Wreihvuqkjb in [Mass/Vol] 2.9 ug/mL <3.1 mg/L [facility] B2 Microglob SerPl-mCncon Rcln-4-Gkwqoevnpbz in [Mass/Vol] 2.9 ug/mL Normal <3.1 [facility] Comment on above: Order Comment: Speci men Type: BLOOD SPECIMEN Ordering Facility: [facility] Address: [address] [place] [address] Result Comment: Beta -2 Microglobulin test is performed using the [employer] immunoturbidimetric method. Results obtained with different methods or kits cannot be used interchangeably. Performed By: #### 3 084-1, 03369-2, 2532-0, 2777-1 #### [facility] CLIA [id number] [address] [place], [place] [address] CBC W Auto Differential pane l (Bld)on 01-25-2022 Basophils (Bld) [#/Vol] 0.04 10*3/uL Normal <0.11 [facility] Comment on above: Order Comment: Speci alan Type: BLOOD SPECIMEN Ordering Facility: [facility] Address: [address] [place] [address] Performed By: #### 5 7021-8 #### [facility] CLIA [id number] [address] [place] [address]129 Basophils/100 WBC (Bld) 0.5 % Normal [facility] Comment on above: Order Comment: Speci alan Type: BLOOD SPECIMEN Ordering Facility: [facility] Address: [address] [place] [address] Performed By: #### 5 7021-8 #### [facility] CLIA [id number] [address] [place] [address] 80271 Differential cell count method Nom (Bld) Auto Normal [facility] Comment on above: Order Comment: Speci men Type: BLOOD SPECIMEN Ordering Facility: [facility] Address: [address] [address] Performed By: #### 5 7021-8 #### [facility] CLIA [id number] [address] [place] [address] 14831 Eosinophils (Bld) [#/Vol] 0.16 10*3/uL Normal <0.46 [facility] Comment on above: Order Comment: Speci men Type: BLOOD SPECIMEN Ordering Facility: [facility] Address: [address] [place] [address] Performed By: #### 5 7021-8 #### [facility] CLIA [id number] [address] [place] [address] 71354 Eosinophils/100 WBC (Bld) 1.9 % Normal [facility] Comment on above: Order Comment: Speci men Type: BLOOD SPECIMEN Ordering Facility: [facility] Address: [address] [place] [address] Performed By: #### 5 7021-8 #### [facility] CLIA [id number] [address] [place] [address]76 Erythrocyte distribution width (RBC) [Ratio] 13.8 % Normal 11.5-15.0 [facility] Comment on above: Order Comment: Speci men Type: BLOOD SPECIMEN Ordering Facility: [facility] Address: [address] [place] [address] Performed By: #### 5 7021-8 #### [facility] CLIA [id number] [address] [place] [address]21 Hematocrit (Bld) [Volume fraction] 36.7 % Normal 36.0-46.0 [facility] Comment on above: Order Comment: Speci men Type: BLOOD SPECIMEN Ordering Facility: [facility] Address: [address] [place] [address] Performed By: #### 5 7021-8 #### [facility] CLIA [id number] [address] [place] [address]79 Hemoglobin (Bld) [Mass/Vol] 11.5 g/dL Normal 11.5-15.5 [facility] Comment on above: Order Comment: Speci men Type: BLOOD SPECIMEN Ordering Facility: [facility] Address: [address] [place] [address] Performed By: #### 5 7021-8 #### [facility] CLIA [id number] [address] [place] [address] 31651 IMMATURE GRAN % 0.4 % Normal [facility] Comment on above: Order Comment: Speci men Type: BLOOD SPECIMEN Ordering Facility: [facility] Address: [address] [place] [address] Performed By: #### 5 7021-8 #### [facility] CLIA [id number] [address] [place] [address] 05161 IMMATURE GRAN ABS 0.03 k/uL Normal <0.10 [place] Comment on above: Order Comment: Speci men Type: BLOOD SPECIMEN Ordering Facility: [facility] Address: [address] [place] [address] Performed By: #### 5 7021-8 #### [facility] CLIA [id number] [address] [place] [address] 62419 Lymphocytes (Bld) [#/Vol] 2.10 10*3/uL Normal 1.00-4.00 [facility] Comment on above: Order Comment: Speci men Type: BLOOD SPECIMEN Ordering Facility: [facility] Address: [address] [place] [address] Performed By: #### 5 7021-8 #### [facility] CLIA [id number] [address] [place] [address] 78201 Lymphocytes/100 WBC (Bld) 24.9 % Normal [facility] Comment on above: Order Comment: Speci men Type: BLOOD SPECIMEN Ordering Facility: [facility] Address: [address] [place] [address] Performed By: #### 5 7021-8 #### [facility] CLIA [id number] [address] [place] [address] 71241 MCH (RBC) [Entitic mass] 25.9 pg Low 26.0-34.0 [facility] Comment on above: Order Comment: Speci men Type: BLOOD SPECIMEN Ordering Facility: [facility] Address: [address] [place] [address] Performed By: #### 5 7021-8 #### [facility] CLIA [id number] [address] [place] [address] 17084 MCHC (RBC) [Mass/Vol] 31.3 g/dL Normal 30.5-36.0 [facility] Comment on above: Order Comment: Speci men Type: BLOOD SPECIMEN Ordering Facility: [facility] Address: [address] [place] [address] Performed By: #### 5 7021-8 #### [facility] CLIA [id number] [address] [place] [address] 18304 MCV (RBC) [Entitic vol] 82.7 fL Normal 80.0-100.0 [facility] Comment on above: Order Comment: Speci men Type: BLOOD SPECIMEN Ordering Facility: [facility] Address: [address] [place] [address] Performed By: #### 5 7021-8 #### [facility] CLIA [id number] [address] [place] [address] 89056 Monocytes (Bld) [#/Vol] 0.84 10*3/uL Normal <0.87 [facility] Comment on above: Order Comment: Speci men Type: BLOOD SPECIMEN Ordering Facility: [facility] Address: [address] [place] [address] Performed By: #### 5 7021-8 #### [facility] CLIA [id number] [address] [place] [address] 33266 Monocytes/100 WBC (Bld) 10.0 % Normal [facility] Comment on above: Order Comment: Speci men Type: BLOOD SPECIMEN Ordering Facility: [facility] Address: [address] Performed By: #### 5 7021-8 #### [facility] CLIA [id number] [address] [place] [address] 87391 Neutrophils (Bld) [#/Vol] 5.26 10*3/uL Normal 1.45-7.50 [facility] Comment on above: Order Comment: Speci men Type: BLOOD SPECIMEN Ordering Facility: [facility] Address: [address] [place], [place] [address] Performed By: #### 5 7021-8 #### [facility] CLIA [id number] [address] [place] [address] 85247 Neutrophils/100 WBC (Bld) 62.3 % Normal [facility] Comment on above: Order Comment: Speci men Type: BLOOD SPECIMEN Ordering Facility: [facility] Address: [address] [place], [place] [address] Performed By: #### 5 7021-8 #### [facility] CLIA [id number] [address] [place] [address] 29566 Nucleated RBC (Bld) [#/Vol] 10*3/uL Normal <0.01 [facility] Comment on above: Order Comment: Speci men Type: BLOOD SPECIMEN Ordering Facility: [facility] Address: [address] [place], [place] [address] Performed By: #### 5 7021-8 #### [facility] CLIA [id number] [address] [place] [address] 86909 Nucleated RBC/100 WBC (Bld) [Ratio] 0.0 /100 WBC Normal [facility] Comment on above: Order Comment: Speci men Type: BLOOD SPECIMEN Ordering Facility: [facility] Address: [address] [place], [place] [address] Performed By: #### 5 7021-8 #### [facility] CLIA [id number] [address] [place] [address] 84637 Platelet mean volume (Bld) [Entitic vol] 9.2 fL Normal 9.0-12.7 [facility] Comment on above: Order Comment: Speci men Type: BLOOD SPECIMEN Ordering Facility: [facility] Address: [address] [place] [address] Performed By: #### 5 7021-8 #### [facility] CLIA [id number] [address] [place] [address] 64458 Platelets (Bld) [#/Vol] 199 10*3/uL Normal 150-400 [facility] Comment on above: Order Comment: Speci men Type: BLOOD SPECIMEN Ordering Facility: [facility] Address: [address] [place] [address] Performed By: #### 5 7021-8 #### [facility] CLIA [id number] [address] [place] [address] 70409 RBC (Bld) [#/Vol] 4.44 10*6/uL Normal 3.90-5.20 [facility] Comment on above: Order Comment: Speci men Type: BLOOD SPECIMEN Ordering Facility: [facility] Address: [address] [place] [address] Performed By: #### 5 7021-8 #### [facility] CLIA [id number] [address] [place] [address] 66573 WBC (Bld) [#/Vol] 8.43 10*3/uL Normal 3.70-11.00 [facility] Comment on above: Order Comment: Speci men Type: BLOOD SPECIMEN Ordering Facility: [facility] Address: [address] [place] [address] Performed By: #### 5 7021-8 #### [facility] CLIA [id number] [address] [place] [address] 82295 Abs Immature Gran 0.03 k/uL <0.10 k/uL [facility] Basophils (Bld) [#/Vol] 0.04 10*3/uL <0.11 k/uL [facility] Basophils/100 WBC (Bld) 0.5 % [facility] Differential cell count method Nom (Bld) Auto [facility] Eosinophils (Bld) [#/Vol] 0.16 10*3/uL <0.46 k/uL [facility] Eosinophils/100 WBC (Bld) 1.9 % [facility] Erythrocyte distribution width (RBC) [Ratio] 13.8 % 11.5 - 15.0 % [facility] Hematocrit (Bld) [Volume fraction] 36.7 % 36.0 - 46.0 % [facility] Hemoglobin (Bld) [Mass/Vol] 11.5 g/dL 11.5 - 15.5 g/dL [facility] Immature Gran % 0.4 % [facility] Lymphocytes (Bld) [#/Vol] 2.10 10*3/uL 1.00 - 4.00 k/uL [facility] Lymphocytes/100 WBC (Bld) 24.9 % [facility] MCH (RBC) [Entitic mass] 25.9 pg Low 26.0 - 34.0 pg [facility] MCHC (RBC) [Mass/Vol] 31.3 g/dL 30.5 - 36.0 g/dL [facility] MCV (RBC) [Entitic vol] 82.7 fL 80.0 - 100.0 fL [facility] Monocytes (Bld) [#/Vol] 0.84 10*3/uL <0.87 k/uL [facility] Monocytes/100 WBC (Bld) 10.0 % [facility] Neutrophils (Bld) [#/Vol] 5.26 10*3/uL 1.45 - 7.50 k/uL [facility] Neutrophils/100 WBC (Bld) 62.3 % [facility] Nucleated RBC (Bld) [#/Vol] <0.01 k/uL [facility] Nucleated RBC/100 WBC (Bld) [Ratio] 0.0 /100 WBC [facility] Platelet mean volume (Bld) [Entitic vol] 9.2 fL 9.0 - 12.7 fL [facility] Platelets (Bld) [#/Vol] 199 10*3/uL 150 - 400 k/uL [facility] RBC (Bld) [#/Vol] 4.44 10*6/uL 3.90 - 5.2 0 m/uL [facility] WBC (Bld) [#/Vol] 8.43 10*3/uL 3.70 - 11. 00 k/uL [facility] CNOVSPon 01-25-2022 CNOVSP Visit (SP) Office ([facility] CAT) RIANA GARCIA ([id number]) 1945 F Date Time Provider Department 01/25/22 3:00 PM JOEY KRUGER During your visit today, we recorded the following information about you: Temperature Pulse Respiration Blood pressure 97.1 degrees 76/minute 16/minute 152/79 Weight Height 81.2 kg 1.64 m Rajni Singh MA 01/25/2022 3:14 PM Signed Patient had a Covid booster Tuesday and her Left arm (at injections site) is red with a jena around it, she wonders if it is an allergic reaction? LINDSEY Cartwright MD 02/01/2022 8:13 PM Signed NAME: Riana Garcia NO.: [id number] DATE OF SERVICE: January 25, 2022 Referring [...] with but also will need records from [facility] with respect to both pathology and surgery. She is also scheduled to have a thyroid nodule biopsied. 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 PLAN: 1. Need path and surgery records from colon cancer prior to 2006 - [facility] [place] 2. Labs drawn today 3. RTC in [...] mg tabl (more content not included)... Normal [facility] Calcium.ionized [Moles/Vol]o n 01-25-2022 Calcium.ionized (Bld) [Mass/Vol] 1.22 mmol/L 1.08 - 1.30 mmol/L [facility] Calcium.ionized adjusted to pH 7.4 (Bld) [Moles/Vol] 1.22 mmol/L 1.08 - 1.30 mmol/L [facility] Calcium.ionized (Bld) [Mass/Vol] 1.22 mmol/L Normal 1.08-1.30 [facility] Comment on above: Order Comment: Speci men Type: BLOOD SPECIMEN Ordering Facility: [facility] Address: [address] [place] [address] Performed By: #### 3 084-1, 38722-7, 2532-0, 2777-1 #### [facility] CLIA [id number] [address] [place] [address] Calcium.ionized adjusted to pH 7.4 (Bld) [Moles/Vol] 1.22 mmol/L Normal 1.08-1.30 [facility] Comment on above: Order Comment: Speci men Type: BLOOD SPECIMEN Ordering Facility: [facility] Address: [address] [place] [address] Performed By: #### 3 084-1, 45051-5, 2532-0, 2777-1 #### [facility] CLIA [id number] [address] [place] [address] Comprehensive metabolic 2000 panelon 01-25-2022 Albumin [Mass/Vol] 4.1 g/dL Normal 3.9-4.9 [facility] Comment on above: Order Comment: Speci men Type: BLOOD SPECIMEN Ordering Facility: [facility] Address: [address] [place] [address] Performed By: #### 3 084-1, 34228-3, 2532-0, 2777-1 #### [facility] CLIA [id number] [address] [place] [address] 64801 ALP [Catalytic activity/Vol] 93 U/L Normal 34-123 [facility] Comment on above: Order Comment: Speci men Type: BLOOD SPECIMEN Ordering Facility: [facility] Address: [address] [place] [address] Performed By: #### 3 084-1, 93969-2, 2532-0, 2777-1 #### [facility] CLIA [id number] [address] [place] [address] 26554 ALT [Catalytic activity/Vol] 11 U/L Normal 7-38 [facility] Comment on above: Order Comment: Speci men Type: BLOOD SPECIMEN Ordering Facility: [facility] Address: [address] [place] [address] Performed By: #### 3 084-1, 55432-5, 2532-0, 2777-1 #### [facility] CLIA [id number] [address] [place] [address] 57546 Anion gap [Moles/Vol] 9 mmol/L Normal 9-18 [facility] Comment on above: Order Comment: Speci men Type: BLOOD SPECIMEN Ordering Facility: [facility] Address: [address] [place] [address] Performed By: #### 3 084-1, 08090-8, 2532-0, 2777-1 #### [facility] CLIA [id number] [address] [place] [address] 26332 AST [Catalytic activity/Vol] 14 U/L Normal 13-35 [facility] Comment on above: Order Comment: Speci men Type: BLOOD SPECIMEN Ordering Facility: [facility] Address: [address] [place] [address] Performed By: #### 3 084-1, 75762-9, 2532-0, 2777-1 #### [facility] CLIA [id number] [address] [place] [address] 67064 Bilirubin [Mass/Vol] 0.2 mg/dL Normal 0.2-1.3 [facility] Comment on above: Order Comment: Speci men Type: BLOOD SPECIMEN Ordering Facility: [facility] Address: [address] [place] [address] Performed By: #### 3 084-1, 10625-9, 2531-0, 2776- #### [facility] CLIA [id number] [address] [place] [address] 25721 Calcium [Mass/Vol] 9.5 mg/dL Normal 8.5-10.2 [facility] Comment on above: Order Comment: Speci men Type: BLOOD SPECIMEN Ordering Facility: [facility] Address: [address] [place] [address] Performed By: #### 3 084-1, 83123-5, 2531-0, 2776-06 #### [facility] CLIA [id number] [address] [place] [address] 29370 Chloride [Moles/Vol] 104 mmol/L Normal 97-105 [facility] Comment on above: Order Comment: Speci men Type: BLOOD SPECIMEN Ordering Facility: [facility] Address: [address] [place] [address] Performed By: #### 3 084-1, 05255-9, 2531-0, 2776-06 #### [facility] CLIA [id number] [address] [place] [address] CO2 [Moles/Vol] 28 mmol/L Normal 22-30 [facility] Comment on above: Order Comment: Speci men Type: BLOOD SPECIMEN Ordering Facility: [facility] Address: [address] [place], [place] [address] Performed By: #### 3 084-1, 25203-8, 2531-0, 2776-06 #### [facility] CLIA [id number] [address] [place] [address] Creatinine [Mass/Vol] 0.89 mg/dL Normal 0.58-0.96 [facility] Comment on above: Order Comment: Speci men Type: BLOOD SPECIMEN Ordering Facility: [facility] Address: [address] [place] [address] Performed By: #### 3 084-1, 25160-6, 2532-0, 2777-1 #### [facility] CLIA [id number] [address] [place] [address] ESTIMATED GLOMERULAR FILTRATION RATE 68 mL/min/1.73m??? Normal >=60 [facility] Comment on above: Order Comment: Ludy phillips Type: BLOOD SPECIMEN Ordering Facility: [facility] Address: [address] [place] [address] Result Comment: Ev mated Glomerular Filtration Rate [...] actual GFR. Performed By: #### 3 084-1, 05593-6, 2532-0, 2777-1 #### [facility] CLIA [id number] [address] [place] [address] Glucose [Mass/Vol] 97 mg/dL Normal 74-99 [facility] Comment on above: Order Comment: Ludy phillips Type: BLOOD SPECIMEN Ordering Facility: [facility] Address: [address] [place] [address] Result Comment: The [place] Diabetes Association (ADA) provides guidance for cutoff [...] Standards of Medical Care in Diabetes 2016, [place] [employer]. Diabetes Care. 2016.39(Suppl 1). Performed By: #### 3 084-1, 16598-2, 2532-0, 2776-1 #### [facility] CLIA [id number] [address] [place] [address] Potassium [Moles/Vol] 4.1 mmol/L Normal 3.7-5.1 [facility] Comment on above: Order Comment: Speci men Type: BLOOD SPECIMEN Ordering Facility: [facility] Address: [address] [place] [address] Performed By: #### 3 084-1, 87012-9, 2532-0, 2776-1 #### [facility] CLIA [id number] [address] [place] [address] Protein [Mass/Vol] 6.8 g/dL Normal 6.3-8.0 [facility] Comment on above: Order Comment: Speci men Type: BLOOD SPECIMEN Ordering Facility: [facility] Address: [address] [place] [address] Performed By: #### 3 084-1, 57586-2, 2532-0, 2776- #### [facility] CLIA [id number] [address] [place] [address] Sodium [Moles/Vol] 141 mmol/L Normal 136-144 [facility] Comment on above: Order Comment: Speci men Type: BLOOD SPECIMEN Ordering Facility: [facility] Address: [address] [place] [address] Performed By: #### 3 084-1, 30922-6, 2532-0, 2776-1 #### [facility] CLIA [id number] [address] [place] [address] Urea nitrogen [Mass/Vol] 27 mg/dL High 7-21 [facility] Comment on above: Order Comment: Speci men Type: BLOOD SPECIMEN Ordering Facility: [facility] Address: [address] [place] [address] Performed By: #### 3 084-1, 62456-8, 2532-0, 2777-1 #### [facility] CLIA [id number] [address] [place] [address] Albumin [Mass/Vol] 4.1 g/dL 3.9 - 4.9 g/dL [facility] ALP [Catalytic activity/Vol] 93 U/L 34 - 123 U/L [facility] ALT [Catalytic activity/Vol] 11 U/L 7 - 38 U/L [facility] Anion gap [Moles/Vol] 9 mmol/L 9 - 18 mmol/L [facility] AST [Catalytic activity/Vol] 14 U/L 13 - 35 U/L [facility] Bilirubin [Mass/Vol] 0.2 mg/dL 0.2 - 1.3 mg/dL [facility] Calcium [Mass/Vol] 9.5 mg/dL 8.5 - 10. 2 mg/dL [facility] Chloride [Moles/Vol] 104 mmol/L 97 - 105 mmol/L [facility] CO2 [Moles/Vol] 28 mmol/L 22 - 30 mmol/L [facility] Creatinine [Mass/Vol] 0.89 mg/dL 0.58 - 0.96 mg/dL [facility] Estimated Glomerular Filtration Rate 68 mL/min/1.73m >=60 mL/min/1.73m [facility] Glucose [Mass/Vol] 97 mg/dL 74 - 99 mg/dL [facility] Potassium [Moles/Vol] 4.1 mmol/L 3.7 - 5.1 mmol/L [facility] Protein [Mass/Vol] 6.8 g/dL 6.3 - 8.0 g/dL [facility] Sodium [Moles/Vol] 141 mmol/L 136 - 144 mmol/L [facility] Urea nitrogen [Mass/Vol] 27 mg/dL High 7 - 21 mg/dL [facility] IMMUNOFIXATION SCREEN, SERUM on 01-25-2022 INTERPRETATION (MPA) Atypical restricted bands are present in the IgM and kappa regions. Consistent with IgM kappa monoclonal gammopathy. Normal [facility] Comment on above: Order Comment: Speci men Type: BLOOD SPECIMEN Ordering Facility: [facility] Address: [address] [place] [phone] Performed By: #### I FESC #### [facility] CLIA [id number] [address] [place] [address] STATES [facility] MPA RESULT M protein is present. Abnormal No M p rotein is identified. [facility] Comment on above: Order Comment: Speci men Type: BLOOD SPECIMEN Ordering Facility: [facility] Address: [address] [place] [address] Performed By: #### I FESC #### [facility] CLIA [id number] [address] [place] [address] STAFF REVIEW (MPA) Reviewed by María hardy MD [facility] Comment on above: Order Comment: Speci men Type: BLOOD SPECIMEN Ordering Facility: [facility] Address: [address] [place] [address] Performed By: #### I FES #### [facility] CLIA [id number] [address] [place] [address] [place] IMMUNOGLOBULINS GAMon 2021 IgA [Mass/Vol] 153 mg/dL Normal 70-400 [facility] Comment on above: Order Comment: Speci men Type: BLOOD SPECIMEN Ordering Facility: [facility] Address: [address] [place] [address] Performed By: #### S ERIMM #### [facility] CLIA [id number] [address] [place] [address] [place] IgG [Mass/Vol] 1211 mg/dL Normal 700-1600 [facility] Comment on above: Order Comment: Speci men Type: BLOOD SPECIMEN Ordering Facility: [facility] Address: [address] [place], [place] [address] Performed By: #### S ERIMM #### [facility] CLIA [id number] [address] [place] [address] [place] IgM [Mass/Vol] 357 mg/dL High 40-230 [facility] Comment on above: Order Comment: Speci men Type: BLOOD SPECIMEN Ordering Facility: [facility] Address: [address] [place] [address] Performed By: #### S ERIMM #### [facility] CLIA [id number] [address] [place] [address] [place] KAPPA/LEONARD,FREE,SERon 2021 Immunoglobulin light chains.kappa.free (S) [Mass/Vol] 132.0 mg/L High 3.3-19.4 [facility] Comment on above: Order Comment: Speci men Type: BLOOD SPECIMEN Ordering Facility: [facility] Address: [address] [place] [address] Performed By: #### K LFRS #### [facility] CLIA [id number] [address] [place] [address] [place] Immunoglobulin light chains.kappa/Immun oglobulin light chains.lambda (S) [Mass ratio] 7.95 High 0.26-1.65 [facility] Comment on above: Order Comment: Speci men Type: BLOOD SPECIMEN Ordering Facility: [facility] Address: [address] [place] [address] Performed By: #### K LFRS #### [facility] CLIA [id number] [address] [place] [address] [place] Immunoglobulin light chains.lambda.free [Mass/Vol] 16.6 mg/L Normal 5.7-26.3 [facility] Comment on above: Order Comment: Speci men Type: BLOOD SPECIMEN Ordering Facility: [facility] Address: [address] [place], [place] [address] Performed By: #### K LFRS #### [facility] CLIA [id number] [address] [place] [address] [place] LD LACTATE DEHYDROon 022 LDH [Catalytic activity/Vol] 179 U/L 135 - 214 U/L [facility] LDH SerPl-cCncon 01-25-2022 LDH [Catalytic activity/Vol] 179 U/L Normal 135-214 [facility] Comment on above: Order Comment: Ludy phillips Type: BLOOD SPECIMEN Ordering Facility: [facility] Address: [address] [place] [address] Result Comment: Hemo lysis present. The origin [...] clinically indicated. Performed By: #### 3 084-1, 96658-4, 2532-0, 2777-1 #### [facility] CLIA [id number] [address] [place] [address]281 PHOSPHORUS INORGANICon 01-25 Phosphate [Mass/Vol] 3.9 mg/dL 2.7 - 4.8 mg/dL [facility] PROTEIN ELECTROPHORESIS SERU M (P)on 01-25-2022 Albumin [Mass/Vol] 3.61 g/dL Normal 3.37-4.23 [facility] Comment on above: Order Comment: Ludy phillips Type: BLOOD SPECIMEN Ordering Facility: [facility] Address: [address] [place] [address] Performed By: #### L [id number] #### [facility] CLIA [id number] [address] [place] [address] [place] Alpha 1 globulin Elph [Mass/Vol] 0.24 g/dL Normal 0.18-0.31 [facility] Comment on above: Order Comment: Ludy phillips Type: BLOOD SPECIMEN Ordering Facility: [facility] Address: [address] [place], [place] [address] Performed By: #### L [id number] #### [facility] CLIA [id number] [address] [place] [address] [place] Alpha 2 globulin Elph [Mass/Vol] 0.66 g/dL Normal 0.52-0.97 [facility] Comment on above: Order Comment: Speci men Type: BLOOD SPECIMEN Ordering Facility: [facility] Address: [address] [place] [address] Performed By: #### L [id number] #### [facility] CLIA [id number] [address] [place] [address] [place] Beta globulin Elph [Mass/Vol] 0.84 g/dL Normal 0.84-1.36 [facility] Comment on above: Order Comment: Speci men Type: BLOOD SPECIMEN Ordering Facility: [facility] Address: [address] [place] [address] Performed By: #### L [id number] #### [facility] CLIA [id number] [address] [place] [address] [place] Gamma globulin Elph (Body fld) [Mass fraction] 1.34 g/dL Normal 0.70-1.44 [facility] Comment on above: Order Comment: Speci men Type: BLOOD SPECIMEN Ordering Facility: [facility] Address: [address] [place] [address] Performed By: #### L [id number] #### [facility] CLIA [id number] [address] [place] [address] [place] INTERPRETATION COMMENT FOR PROTEIN ELECTROPHORESIS Normal [facility] Comment on above: Order Comment: Speci men Type: BLOOD SPECIMEN Ordering Facility: [facility] Address: [address] [place] [address] Result Comment: See separate immunofixation report for characterization of monoclonal gammopathy. M protein is present on the background of a polyclonal immunoglobulin population. Quantitation of the M protein may overestimate the amount of M protein present. Performed By: #### L [id number] #### [facility] CLIA [id number] [address] [place] [address] [place] M-PROTEIN LOCATION Gamma Fraction 1 Normal [facility] Comment on above: Order Comment: Speci men Type: BLOOD SPECIMEN Ordering Facility: [facility] Address: [address] [place], [place] [address] Performed By: #### L [id number] #### [facility] CLIA [id number] [address] [place] [address] [place] Protein Fractions [Interp] An M protein is identified on protein electrophoresis. Abnormal No definitive M protein is identified on protein electrophore sis. [facility] Comment on above: Order Comment: Speci men Type: BLOOD SPECIMEN Ordering Facility: [facility] Address: [address] [place], [place] [address] Performed By: #### L [id number] #### [facility] CLIA [id number] [address] [place] [address] [place] Protein.monoclonal Elph [Mass/Vol] 0.25 g/dL High <=0.00 [facility] Comment on above: Order Comment: Speci men Type: BLOOD SPECIMEN Ordering Facility: [facility] Address: [address] [place], [place] [address] Performed By: #### L [id number] #### [facility] CLIA [id number] [address] [place] [address] [place] SPE STAFF REVIEW Reviewed by María hardy MD [facility] Comment on above: Order Comment: Speci men Type: BLOOD SPECIMEN Ordering Facility: [facility] Address: [address] [place], [place] [address] Performed By: #### L [id number] #### [facility] CLIA [id number] [address] [place] [address] [place] Phosphate SerPl-mCncon 01-25 Phosphate [Mass/Vol] 3.9 mg/dL Normal 2.7-4.8 [facility] Comment on above: Order Comment: Speci men Type: BLOOD SPECIMEN Ordering Facility: [facility] Address: [address] [place], [place] [address] Performed By: #### 3 084-1, 04255-9, 2532-0, 2777-1 #### [facility] CLIA [id number] [address] [place] [address] Prot SerPl-mCncon 01-25-2022 Protein [Mass/Vol] 6.7 g/dL Normal 6.3-8.0 [facility] Comment on above: Order Comment: Speci men Type: BLOOD SPECIMEN Ordering Facility: [facility] Address: [address] [place] [address] Performed By: #### 2 885-2, 1951-06 #### [facility] CLIA [id number] [address] [place] [address] OF [facility] URIC ACID BLOODon 01-25-2022 Urate [Mass/Vol] 5.4 mg/dL 2.5 - 6.6 mg/dL [facility] Urate [facility] Urate [Mass/Vol] 5.4 mg/dL Normal 2.5-6.6 [facility] Comment on above: Order Comment: Speci men Type: BLOOD SPECIMEN Ordering Facility: [facility] Address: [address] [place] [address] Performed By: #### 3 084-1, 63260-5, 2532-0, 2777-1 #### [facility] CLIA [id number] [address] [place], [place] [address] Physician Referralon 022 Physician Referral [phone] [id number]:[address] [facility] US THYROIDon 01-11-2022 US THYROID EXAMINATION: US [...] fine-needle aspiration of both nodules. TI-RADS: The [place] [employer] TI-RADS committee's white paper recommendations for thyroid lesions classified as TR4 (moderately suspicious) are listed below: > 1.0 cm. Follow-up ultrasound in 1, 2, 3, and 5 years. > 1.5 cm. FNA. J. Am Mat Radiol 2017;14:587-595. TI-RADS: The [place] [employer] TI-RADS committee's white paper recommendations for thyroid lesions classified as TR5 (highly suspicious) are listed below: > 0.5 cm. Annual ultrasound follow-up for up to 5 years. > 1.0 cm. FNA. J. Am Mat Radiol 2017;14:587-595. Electronically authenticated by: BIRGIT HAMILTON Date: 2022-01-11 07:45 Normal [facility] Glucose Poct Glucometerson 0 12-30-2021 Glucose [Mass/Vol] 95 mg/dL Normal [facility] Comment on above: Result Comment: [place] Glucose Reference Range is dependent on time and content of last meal. Glucose of more than 200 mg/dL in a nonstressed, ambulatory subject supports the diagnosis of Diabetes Mellitus. PERFORMED BY: [address] [address] PATHOLOGIST CLINICAL RESEARCH ASSOCIATE FLOYD LOPEZ M.D. Performed By: #### G LULS #### Point of Care testing , PET tumor init tx strat sb-m ton 12-30-2021 PET tumor init tx strat sb-mt [facility] Main [place] [address] [place] [address] Nuclear Medicine Report Signed Patient: Riana Garcia MR#: [id number] : 1945 Acct:[id number] Age/Sex: 76 / F ADM Date: 12/30/21 Loc: Room: Type: [facility] Attending Dr: Rosita Schaffer Copies to: [...] Blake Hickey M.D.12/30/2021 2:30 PM Dictation Location: [place] [address] Transcribed By: SONYA 12/30/21 1430 Dictated By: Blake Hickey DO 12/30/21 1411 Signed By: 12/30/21 1430 [facility] MG MAMM RT DIAG FUon 022 MG MAMM RT DIAG FU Patient: LONNIE GARCIA Exam Date: 12/16/2021 : 1945 Gender:F Ordering : STEPHANIE ROSITA HERNESTO [facility] Admission #: [id number] Family : Order #: [id number] CLICK HERE TO VIEW EXAM RADIOLOGY REPORT [...] Treatments None Family Cancers None LOCATION: [facility] BREAST COMPOSITION: Heterogeneously dense,which may obscure [...] MD on 12/16/2021 at 15:21 Normal [facility] US BREAST RIGHT LIMITEDon US BREAST RIGHT LIMITED Patient: RIANA GARCIA Exam Date: 12/16/2021 : 1945 Gender:F Ordering : STEPHANIE ROSITATyra SCHAFFER [facility] Admission #: [id number] Family : Order #: [id number] CLICK HERE TO VIEW EXAM RADIOLOGY REPORT [...] Treatments None Family Cancers None LOCATION: [facility] BREAST COMPOSITION: Heterogeneously dense,which may obscure [...] MD on 12/16/2021 at 15:21 Normal [facility] HLA B 27on 12-11-2021 HLA-B27 Negative Normal [facility] Comment on above: Result Comment: HLA- B*27 Negative B27 allele interpretation for all loci based on IMGT/HLA database version 3.44 This test was developed and its performance characteristics determined by [facility]. It has not been cleared or approved by the Food and Drug Administration. [facility] CLIA ID Number [id number] . This test was performed using PCR (Polymerase Chain Reaction)/SSOP (Sequence Specific Oligonucleotide Probes) technique. SBT (Sequence Based Typing) and/or SSP (Sequence Specific Primers) may be used as supplemental methods when necessary. Please contact [facility] Customer Service at if you have any questions. . Director of [facility] Laboratory Dr Floyd Trammell, PhD Performed By: #### H LA27 #### [facility] [address] [place] [address] Dr. Darius Zepeda MG MAMM SCREEN 3D THIERRY CADon 12-11-2021 MG MAMM SCREEN 3D THIERRY CAD Patient: RIANA GARCIA Exam Date: 12/11/2021 : 1945 Gender:F Ordering : STEPHANIE ROSITA SCHAFFER [facility] Admission #: [id number] Family : Order #: [id number] CLICK HERE TO VIEW EXAM RADIOLOGY REPORT PROCEDURE: MAMMOGRAM SCREENING 3D BILATERAL CAD COMPARISON: None. INDICATIONS: Screening mammography Calculator Name NCI Breast Cancer Risk Assessment Tool 5 Year Breast Cancer Risk 2.00% Lifetime Breast Cancer Risk 4.50% Personal Breast Cancer No Personal Ovarian Cancer No Treatments None Family Cancers None LOCATION: [facility] BREAST COMPOSITION: Heterogeneously dense,which may obscure [...] Govea M.D. on 12/11/2021 at 15:30 Normal [facility] XR CHEST 2 Von 12-11-2021 XR CHEST [...] CARMEL GOVEA Date: 2021-12-11 18:05 Normal [facility] IMMUNOFIXATION (LIAN), URINEo n 12-09-2021 LIAN Interpretation:U Comment Normal [facility] Comment on above: Result Comment: No m onoclonality detected. Performed By: #### L DH, BMP, LIVER, CRP #### [facility] [address] [place] [address] [address] Darius Zepeda GIGI by IFAon 12-08-2021 Antinuclear Antibodies, IFA Negative Normal [facility] Comment on above: Result Comment: Nega tive <1:80 Borderline 1:80 Positive >1:80 ICAP nomenclature: AC-0 For more information about Hep-2 cell patterns use ANApatterns.org, the official website for the International Consensus on Antinuclear Antibody (GIGI) Patterns (ICAP). Performed By: #### L DH, BMP, LIVER, CRP #### [facility] [address] [place] [address] [address] Darius Zepeda IMMUNOFIXATION (LIAN), SERUMo n 12-08-2021 IMMUNOFIXATION RESULT Comment Abnormal [facility] Comment on above: Result Comment: Immu nofixation shows IgM monoclonal protein with kappa light chain specificity. Performed By: #### L DH, BMP, LIVER, CRP #### [facility] [address] [place] [address] [address] Darius Zepeda Immunoglobulin A, Qn, Serum 157 mg/dL Normal 64-422 [facility] Comment on above: Performed By: #### L DH, BMP, LIVER, CRP #### [facility] [address] [place] [address] [address] Darius Zepeda Immunoglobulin G, Qn, Serum 1264 mg/dL Normal 586-1602 [facility] Comment on above: Performed By: #### L DH, BMP, LIVER, CRP #### [facility] [address] [place] [address] [address] Darius Zepeda Immunoglobulin M, Qn, Serum 364 mg/dL Critically high 26-217 [facility] Comment on above: Performed By: #### L DH, BMP, LIVER, CRP #### [facility] [address] [place] [address] Dr. Darius Zepeda CBC AUTO DIFFon 12-04-2021 BASO # 0.1 103/ul Normal 0.0-0.1 [facility] Comment on above: Performed By: #### L DH, BMP, LIVER, CRP #### [facility] [address] [place] [address] Dr. Darius Zepeda Basophils/100 WBC (Bld) 0.6 % Normal 0.2-2.0 [facility] Comment on above: Performed By: #### L DH, BMP, LIVER, CRP #### [facility] [address] [place] [address] Dr. Darius Zepeda EO # 0.1 103/ul Normal 0.0-0.7 [facility] Comment on above: Performed By: #### L DH, BMP, LIVER, CRP #### [facility] [address] [place] [address] Dr. Darius Zepeda Eosinophils/100 WBC (Bld) 1.0 % Normal 0.9-7.0 [facility] Comment on above: Performed By: #### L DH, BMP, LIVER, CRP #### [facility] [address] [place] [address] Dr. Darius Zepeda Erythrocyte distribution width (RBC) [Ratio] 14.0 % Normal 11.0-15.0 [facility] Comment on above: Performed By: #### L DH, BMP, LIVER, CRP #### [facility] [address] [place] [address] Dr. Darius Zepeda Hematocrit (Bld) [Volume fraction] 35.8 % Critically low 36.0-48.0 [facility] Comment on above: Performed By: #### L DH, BMP, LIVER, CRP #### [facility] [address] [place] [address] Dr. Darius Zepeda Hemoglobin (Bld) [Mass/Vol] 11.2 g/dL Critically low 12.0-16.0 [facility] [place] Comment on above: Performed By: #### L DH, BMP, LIVER, CRP #### [facility] [address] [place] [address] Dr. Darius Zepeda IG # 0.02 10e3/ul Normal 0.00-0.03 [facility] [place] Comment on above: Performed By: #### L DH, BMP, LIVER, CRP #### [facility] [address] [place] [address] Dr. Darius Zepeda IG % 0.2 % Normal 0.0-0.5 [facility] [place] Comment on above: Performed By: #### L DH, BMP, LIVER, CRP #### [facility] [address] [place] [address] Dr. Darius Zepeda LYMPH # 2.2 103/ul Normal 1.2-3.8 [facility] Comment on above: Performed By: #### L DH, BMP, LIVER, CRP #### [facility] [address] [place] [address] Dr. Darius Zepeda Lymphocytes/100 WBC (Bld) 25.1 % Normal 20.5-60.0 [facility] [place] Comment on above: Performed By: #### L DH, BMP, LIVER, CRP #### [facility] [address] [place] [address] Dr. Darius Zepeda MANUAL DIFF REQ NO Normal [facility] [place] Comment on above: Performed By: #### L DH, BMP, LIVER, CRP #### [facility] [address] [place] [address] Dr. Darius Zepeda MCH (RBC) [Entitic mass] 25.6 pg Critically low 26.7-34.0 [facility] [place] Comment on above: Performed By: #### L DH, BMP, LIVER, CRP #### [facility] [address] [place] [address] Dr. Darius Zepeda MCHC (RBC) [Mass/Vol] 31.3 g/dL Normal 29.9-35.2 [facility] Comment on above: Performed By: #### L DH, BMP, LIVER, CRP #### [facility] [address] [place] [address] Dr. Darius Zepeda MCV (RBC) [Entitic vol] 81.7 fL Normal 81.0-99.0 [facility] Comment on above: Performed By: #### L DH, BMP, LIVER, CRP #### [facility] [address] [place] [address] Dr. Darius Zepeda MONO # 0.7 103/ul Normal 0.3-0.8 [facility] [place] Comment on above: Performed By: #### L DH, BMP, LIVER, CRP #### [facility] [address] [place] [address] Dr. Darius Zepeda Monocytes/100 WBC (Bld) 7.7 % Normal 1.7-12.0 [facility] [place] Comment on above: Performed By: #### L DH, BMP, LIVER, CRP #### [facility] [address] [place] [address] Dr. Darius Zepeda NEUT # 5.7 103/ul Normal 1.4-6.5 [facility] [place] Comment on above: Performed By: #### L DH, BMP, LIVER, CRP #### [facility] [address] [place] [address] Dr. Darius Zepeda Neutrophils/100 WBC (Bld) 65.4 % Normal 43.0-75.0 [facility] [place] Comment on above: Performed By: #### L DH, BMP, LIVER, CRP #### [facility] [address] [place] [address] Dr. Darius Zepeda Platelet mean volume (Bld) [Entitic vol] 10.2 fL Normal 9.5-13.5 [facility] Comment on above: Performed By: #### L DH, BMP, LIVER, CRP #### [facility] [address] [place] [address] Dr. Darius Zepeda PLT 220 103/ul Normal 150-450 [facility] Comment on above: Performed By: #### L DH, BMP, LIVER, CRP #### [facility] [address] [place] [address] Dr. Darius Zepeda RBC 4.38 106/ul Normal 4.20-5.40 [facility] [place] Comment on above: Performed By: #### L DH, BMP, LIVER, CRP #### [facility] [address] [place] [address] Dr. Darius Zepeda WBC 8.7 103/ul Normal 4.0-11.0 [facility] [place] Comment on above: Performed By: #### L DH, BMP, LIVER, CRP #### [facility] [address] [place] [address] Dr. Darius Zepeda CRPon 12-04-2021 CRP 1.1 mg/dL Critically high <=1.0 [facility] [place] Comment on above: Performed By: #### L DH, BMP, LIVER, CRP #### [facility] [address] [address] [address] Darius Zepeda LDHon 12-04-2021 LDH 172 U/L Normal 81-234 [facility] Comment on above: Performed By: #### L DH, BMP, LIVER, CRP #### [facility] [address] [place] [address] Dr. Darius Zepeda LIVER PROFILEon 12-04-2021 Albumin [Mass/Vol] 3.7 g/dL Normal 3.4-5.0 [facility] [place] Comment on above: Performed By: #### L DH, BMP, LIVER, CRP #### [facility] [address] [place] [address] Dr. Darius Zepeda Albumin/Globulin [Mass ratio] 0.9 {ratio} Normal [facility] [place] Comment on above: Performed By: #### L DH, BMP, LIVER, CRP #### [facility] [address] [place] [address] Dr. Darius Zepeda ALP [Catalytic activity/Vol] 80 U/L Normal 46-116 [facility] Comment on above: Performed By: #### L DH, BMP, LIVER, CRP #### [facility] [address] [place] [address] Dr. Darius Zepeda ALT [Catalytic activity/Vol] 22 U/L Normal 14-59 [facility] Comment on above: Performed By: #### L DH, BMP, LIVER, CRP #### [facility] [address] [place] [address] Dr. Darius Zepeda AST [Catalytic activity/Vol] 15 U/L Normal 15-37 [facility] Comment on above: Performed By: #### L DH, BMP, LIVER, CRP #### [facility] [address] [place] [address] Dr. Darius Zepeda BILI, CONJUGATED 0.1 mg/dL Normal 0.0-0.2 [facility] [place] Comment on above: Performed By: #### L DH, BMP, LIVER, CRP #### [facility] [address] [place] [address] Dr. Darius Zepeda Bilirubin [Mass/Vol] 0.6 mg/dL Normal 0.2-1.0 [facility] Comment on above: Performed By: #### L DH, BMP, LIVER, CRP #### [facility] [address] [place] [address] Dr. Darius Zepeda Globulin (S) [Mass/Vol] 3.9 g/dL Normal [facility] Comment on above: Performed By: #### L DH, BMP, LIVER, CRP #### [facility] [address] [place] [address] Dr. Darius Zepeda Protein [Mass/Vol] 7.6 g/dL Normal 6.4-8.2 [facility] Comment on above: Performed By: #### L DH, BMP, LIVER, CRP #### [facility] [address] [place] [address] Dr. Darius Zepeda PROF CHEM 8 (BAS METB)on Anion gap [Moles/Vol] 12.8 mmol/L Normal [facility] [place] Comment on above: Performed By: #### L DH, BMP, LIVER, CRP #### [facility] [address] [place] [address] Dr. Darius Zepeda Calcium [Mass/Vol] 8.7 mg/dL Normal 8.5-10.1 [facility] Comment on above: Performed By: #### L DH, BMP, LIVER, CRP #### [facility] [address] [place] [address] Dr. Darius Zepeda Chloride [Moles/Vol] 105 mmol/L Normal 98-107 [facility] Comment on above: Performed By: #### L DH, BMP, LIVER, CRP #### [facility] [address] [address] [address] Darius Zepeda CO2 [Moles/Vol] 27.1 mmol/L Normal 21.0-32.0 [facility] [place] Comment on above: Performed By: #### L DH, BMP, LIVER, CRP #### [facility] [address] [address] [address] Darius Zepeda Creatinine [Mass/Vol] 1.01 mg/dL Normal 0.55-1.02 [facility] Comment on above: Performed By: #### L DH, BMP, LIVER, CRP #### [facility] [address] [address] [address] Darius Zepeda EGFR-AF CHILEAN >60 Normal >=60 [facility] Comment on above: Performed By: #### L DH, BMP, LIVER, CRP #### [facility] [address] [place] [address] Dr. Darius Zepeda EGFR-NON AF CHILEAN 54 mL/min/1.73m2 Critically low >=60 [facility] Comment on above: Performed By: #### L DH, BMP, LIVER, CRP #### [facility] [address] [address] [address] Darius Zepeda Glucose [Mass/Vol] 96 mg/dL Normal 74-106 [facility] Comment on above: Performed By: #### L DH, BMP, LIVER, CRP #### [facility] [address] [address] [address] Darius Zepeda Potassium [Moles/Vol] 3.9 mmol/L Normal 3.5-5.1 [facility] Comment on above: Performed By: #### L DH, BMP, LIVER, CRP #### [facility] [address] [address] [address] Darius Zepeda Sodium [Moles/Vol] 141 mmol/L Normal 136-145 [facility] Comment on above: Performed By: #### L DH, BMP, LIVER, CRP #### [facility] [address] [address] [address] Darius Zepeda Urea nitrogen [Mass/Vol] 24.0 mg/dL Critically high 7.0-18.0 [facility] Comment on above: Performed By: #### L DH, BMP, LIVER, CRP #### [facility] [address] [place] [address] Dr. Darius Zepeda Urea nitrogen/Creatinin e [Mass ratio] 23.8 mg/mg Normal [facility] Comment on above: Performed By: #### L DH, BMP, LIVER, CRP #### [facility] [address] [place] [address] Dr. Darius Zepeda SED RATE WESTERGRENon 2021 SED RATE 30 mm/hr Normal <=30 [facility] Comment on above: Performed By: #### L DH, BMP, LIVER, CRP #### [facility] [address] [place] [address] Dr. Darius Zepeda UA (CLEAN/CATCH) COVERED BUCKLE ASSEMBLER/MICRO I F IND.on 12-04-2021 Bilirubin Ql (U) Negative Normal NEGATIVE [facility] [place] Comment on above: Performed By: #### L DH, BMP, LIVER, CRP #### [facility] [address] [place] [address] Dr. Darius Zepeda Clarity (U) CLEAR Normal CLEAR [facility] [place] Comment on above: Performed By: #### L DH, BMP, LIVER, CRP #### [facility] [address] [place] [address] Dr. Darius Zepeda Color (U) YELLOW Normal YELLOW [facility] [place] Comment on above: Performed By: #### L DH, BMP, LIVER, CRP #### [facility] [address] [place] [address] Dr. Darius Zepeda Glucose Ql (U) Negative Normal NEGATIVE [facility] [place] Comment on above: Performed By: #### L DH, BMP, LIVER, CRP #### [facility] [address] [place] [address] Dr. Darius Zepeda Hemoglobin Ql (U) Negative Normal NEGATIVE [facility] [place] Comment on above: Performed By: #### L DH, BMP, LIVER, CRP #### [facility] [address] [place] [address] Dr. Darius Zepeda Ketones Ql (U) Negative Normal NEGATIVE [facility] Comment on above: Performed By: #### L DH, BMP, LIVER, CRP #### [facility] [address] [address] [address] Darius Zepeda LEUKOCYTES Negative Normal NEGATIVE [facility] [place] Comment on above: Performed By: #### L DH, BMP, LIVER, CRP #### [facility] [address] [address] [address] Darius Zepeda Nitrite Ql (U) Negative Normal NEGATIVE [facility] Comment on above: Performed By: #### L DH, BMP, LIVER, CRP #### [facility] [address] [place] [address] Dr. Darius Zepeda pH (U) 7.0 [pH] Normal 5-9 [facility] [place] Comment on above: Performed By: #### L DH, BMP, LIVER, CRP #### [facility] [address] [place] [address] Dr. Darius Zepeda SPEC GRAVITY 1.020 Normal 1.005-<=1.02 5 [facility] [place] Comment on above: Performed By: #### L DH, BMP, LIVER, CRP #### [facility] [address] [place] [address] Dr. Darius Zepeda UA PROTEIN Negative Normal NEGATIVE/ TRACE [facility] Comment on above: Performed By: #### L DH, BMP, LIVER, CRP #### [facility] [address] [place] [address] Dr. Darius Zepeda UR MICRO IND NOT INDICATED Normal [facility] Comment on above: Performed By: #### L DH, BMP, LIVER, CRP #### [facility] [address] [place] [address] Dr. Darius Zepeda Urobilinogen Qn (U) 0.2 {Nathalia'U}/dL Normal 0.2 - 1.0 [facility] [place] Comment on above: Performed By: #### L DH, BMP, LIVER, CRP #### [facility] [address] [place] [address] Dr. Darius Zepeda URINE MICROSCOPIC ONLYon BACTERIA TRACE Abnormal NONE SEEN [facility] Comment on above: Performed By: #### L DH, BMP, LIVER, CRP #### [facility] [address] [place] [address] Dr. Darius Zepeda Bacteria identified Cx Nom (U) NOT INDICATED Normal [facility] Comment on above: Performed By: #### L DH, BMP, LIVER, CRP #### [facility] [address] [place] [address] Dr. Darius Zepeda CAST NONE SEEN Normal NONE SEEN [facility] Comment on above: Performed By: #### L DH, BMP, LIVER, CRP #### [facility] [address] [address] [address] Darius Zepeda Crystals LM Nom (Urine sed) NONE SEEN Normal NONE SEEN [facility] Comment on above: Performed By: #### L DH, BMP, LIVER, CRP #### [facility] [address] [place] [address] Dr. Darius Zepeda Epithelial cells LM Ql (Urine sed) MODERATE Abnormal NONE SEEN /RARE [facility] Comment on above: Performed By: #### L DH, BMP, LIVER, CRP #### [facility] [address] [place] [address] Dr. Darius Zepeda MUCOUS NONE SEEN Normal NONE SEEN [facility] Comment on above: Performed By: #### L DH, BMP, LIVER, CRP #### [facility] [address] [place] [address] Dr. Darius Zepeda RBC 0-2 Normal 0-2 [facility] Comment on above: Performed By: #### L DH, BMP, LIVER, CRP #### [facility] [address] [place] [address] Dr. Darius Zepeda WBC 2-5 Abnormal NONE SEEN [facility] Comment on above: Performed By: #### L DH, BMP, LIVER, CRP #### [facility] [address] [place] [address] Dr. Darius Zepeda MRI LSPINE W CONon [...] BIRGIT [place] Date: 2021-12-02 11:44 Normal [facility] CBC AUTO DIFFon 11-11-2021 BASO # 0.0 103/ul Normal 0.0-0.1 [facility] [place] Comment on above: Performed By: #### C BC #### [facility] [address] [place] [address] Dr. Darius Zepeda Basophils/100 WBC (Bld) 0.5 % Normal 0.2-2.0 [facility] Comment on above: Performed By: #### C BC #### [facility] [address] [place] [address] Dr. Darius Zepeda EO # 0.1 103/ul Normal 0.0-0.7 [facility] Comment on above: Performed By: #### C BC #### [facility] [address] [place] [address] Dr. Darius Zepeda Eosinophils/100 WBC (Bld) 1.2 % Normal 0.9-7.0 [facility] [place] Comment on above: Performed By: #### C BC #### [facility] [address] [place] [address] Dr. Darius Zepeda Erythrocyte distribution width (RBC) [Ratio] 13.7 % Normal 11.0-15.0 [facility] [place] Comment on above: Performed By: #### C BC #### [facility] [address] [place] [address] Dr. Darius Zepeda Hematocrit (Bld) [Volume fraction] 35.0 % Critically low 36.0-48.0 [facility] [place] Comment on above: Performed By: #### C BC #### [facility] [address] [place] [address] Dr. Darius Zepeda Hemoglobin (Bld) [Mass/Vol] 11.0 g/dL Critically low 12.0-16.0 [facility] [place] Comment on above: Performed By: #### C BC #### [facility] [address] [place] [address] Dr. Darius Zepeda IG # 0.01 10e3/ul Normal 0.00-0.03 [facility] [place] Comment on above: Performed By: #### C BC #### [facility] [address] [place] [address] Dr. Darius Zepeda IG % 0.1 % Normal 0.0-0.5 [facility] [place] Comment on above: Performed By: #### C BC #### [facility] [address] [place] [address] Dr. Darius Zepeda LYMPH # 2.3 103/ul Normal 1.2-3.8 [facility] [place] Comment on above: Performed By: #### C BC #### [facility] [address] [place] [address] Dr. Darius Zepeda Lymphocytes/100 WBC (Bld) 27.5 % Normal 20.5-60.0 [facility] [place] Comment on above: Performed By: #### C BC #### [facility] [address] [place] [address] Dr. Darius Zepeda MANUAL DIFF REQ NO Normal [facility] [place] Comment on above: Performed By: #### C BC #### [facility] [address] [place] [address] Dr. Darius Zepeda MCH (RBC) [Entitic mass] 25.9 pg Critically low 26.7-34.0 [facility] Comment on above: Performed By: #### C BC #### [facility] [address] [place] [address] Dr. Darius Zepeda MCHC (RBC) [Mass/Vol] 31.4 g/dL Normal 29.9-35.2 [facility] [place] Comment on above: Performed By: #### C BC #### [facility] [address] [place] [address] Dr. Darius Zepeda MCV (RBC) [Entitic vol] 82.4 fL Normal 81.0-99.0 [facility] [place] Comment on above: Performed By: #### C BC #### [facility] [address] [place] [address] Dr. Darius Zepeda MONO # 0.8 103/ul Normal 0.3-0.8 [facility] [place] Comment on above: Performed By: #### C BC #### [facility] [address] [place] [address] Dr. Darius Zepeda Monocytes/100 WBC (Bld) 9.1 % Normal 1.7-12.0 [facility] [place] Comment on above: Performed By: #### C BC #### [facility] [address] [place] [address] Dr. Darius Zepeda NEUT # 5.2 103/ul Normal 1.4-6.5 [facility] [place] Comment on above: Performed By: #### C BC #### [facility] [address] [place] [address] Dr. Darius Zepeda Neutrophils/100 WBC (Bld) 61.6 % Normal 43.0-75.0 [facility] Comment on above: Performed By: #### C BC #### [facility] [address] [place] [address] Dr. Darius Zepeda Platelet mean volume (Bld) [Entitic vol] 9.6 fL Normal 9.5-13.5 [facility] Comment on above: Performed By: #### C BC #### [facility] [address] [place] [address] Dr. Darius Zepeda PLT 204 103/ul Normal 150-450 [facility] Comment on above: Performed By: #### C BC #### [facility] [address] [place] [address] Dr. Darius Zepeda RBC 4.25 106/ul Normal 4.20-5.40 [facility] Comment on above: Performed By: #### C BC #### [facility] [address] [place] [address] Dr. Darius Zepeda WBC 8.4 103/ul Normal 4.0-11.0 [facility] Comment on above: Performed By: #### C BC #### [facility] [address] [place] [address] Dr. Darius Zepeda CRPon 11-11-2021 CRP 1.1 mg/dL Critically high <=1.0 [facility] [place] Comment on above: Performed By: #### L DH, BMP, LIVER, CRP #### [facility] [address] [place] [address] Dr. Darius Zepeda FREE T4on 11-11-2021 Free T4 [Mass/Vol] 0.81 ng/dL Normal 0.76-1.46 [facility] [place] Comment on above: Performed By: #### F T4 #### [facility] [address] [place] [address] Dr. Darius Zepeda PROF 14(COMP METB)on 022 Albumin [Mass/Vol] 3.4 g/dL Normal 3.4-5.0 [facility] [place] Comment on above: Performed By: #### L DH, BMP, LIVER, CRP #### [facility] [address] [place] [address] Dr. Darius Zepeda Albumin/Globulin [Mass ratio] 0.9 {ratio} Normal [facility] Comment on above: Performed By: #### L DH, BMP, LIVER, CRP #### [facility] [address] [place] [address] Dr. Darius Zepeda ALP [Catalytic activity/Vol] 92 U/L Normal 46-116 [facility] Comment on above: Performed By: #### L DH, BMP, LIVER, CRP #### [facility] [address] [place] [address] Dr. Darius Zepeda ALT [Catalytic activity/Vol] 23 U/L Normal 14-59 [facility] Comment on above: Performed By: #### L DH, BMP, LIVER, CRP #### [facility] [address] [address] [address] Darius Zepeda Anion gap [Moles/Vol] 9.4 mmol/L Normal [facility] [place] Comment on above: Performed By: #### L DH, BMP, LIVER, CRP #### [facility] [address] [address] [address] Darius Zepeda AST [Catalytic activity/Vol] 14 U/L Critically low 15-37 [facility] [place] Comment on above: Performed By: #### L DH, BMP, LIVER, CRP #### [facility] [address] [address] [address] Darius Zepeda Bilirubin [Mass/Vol] 0.4 mg/dL Normal 0.2-1.0 [facility] [place] Comment on above: Performed By: #### L DH, BMP, LIVER, CRP #### [facility] [address] [address] [address] Darius Zepeda Calcium [Mass/Vol] 9.0 mg/dL Normal 8.5-10.1 [facility] [place] Comment on above: Performed By: #### L DH, BMP, LIVER, CRP #### [facility] [address] [address] [address] Darius Zepeda Chloride [Moles/Vol] 104 mmol/L Normal 98-107 [facility] Comment on above: Performed By: #### L DH, BMP, LIVER, CRP #### [facility] [address] [address] [address] Darius Zepeda CO2 [Moles/Vol] 30.5 mmol/L Normal 21.0-32.0 [facility] Comment on above: Performed By: #### L DH, BMP, LIVER, CRP #### [facility] [address] [address] [address] Darius Zepeda Creatinine [Mass/Vol] 0.92 mg/dL Normal 0.55-1.02 [facility] [place] Comment on above: Performed By: #### L DH, BMP, LIVER, CRP #### [facility] [address] [address] [address] Darius Zepeda EGFR-AF CHILEAN >60 Normal >=60 [facility] [place] Comment on above: Performed By: #### L DH, BMP, LIVER, CRP #### [facility] [address] [address] [address] Darius Zepeda EGFR-NON AF CHILEAN 60 mL/min/1.73m2 Normal >=60 [facility] Comment on above: Performed By: #### L DH, BMP, LIVER, CRP #### [facility] [address] [address] [address] Darius Zepeda Globulin (S) [Mass/Vol] 3.7 g/dL Normal [facility] [place] Comment on above: Performed By: #### L DH, BMP, LIVER, CRP #### [facility] [address] [place] [address] Dr. Darius Zepeda Glucose [Mass/Vol] 88 mg/dL Normal 74-106 [facility] Comment on above: Performed By: #### L DH, BMP, LIVER, CRP #### [facility] [address] [place] [address] Dr. Darius Zepeda Potassium [Moles/Vol] 3.9 mmol/L Normal 3.5-5.1 [facility] Comment on above: Performed By: #### L DH, BMP, LIVER, CRP #### [facility] [address] [place] [address] Dr. Darius Zepeda Protein [Mass/Vol] 7.1 g/dL Normal 6.4-8.2 [facility] Comment on above: Performed By: #### L DH, BMP, LIVER, CRP #### [facility] [address] [place] [address] Dr. Darius Zepeda Sodium [Moles/Vol] 140 mmol/L Normal 136-145 [facility] Comment on above: Performed By: #### L DH, BMP, LIVER, CRP #### [facility] Laboratory [address] [place] [address] Dr. Darius Zepeda Urea nitrogen [Mass/Vol] 25.0 mg/dL Critically high 7.0-18.0 [facility] Comment on above: Performed By: #### L DH, BMP, LIVER, CRP #### [facility] [address] [address] [address] Darius Zepeda Urea nitrogen/Creatinin e [Mass ratio] 27.2 mg/mg Normal [facility] Comment on above: Performed By: #### L DH, BMP, LIVER, CRP #### [facility] [address] [address] [address] Darius Zepeda SED RATE WESTERGRENon 2021 SED RATE 14 mm/hr Normal <=30 [facility] Comment on above: Performed By: #### S EDR #### [facility] [address] [place] [address] Dr. Darius Zepeda TSHon 11-11-2021 TSH 3.474 uIU/mL Normal 0.358-3.740 [facility] Comment on above: Performed By: #### L DH, BMP, LIVER, CRP #### [facility] [address] [place] [address] Dr. Darius Zepeda TSH RANGE SEE BELOW Normal [facility] Comment on above: Result Comment: <0.3 4 UIU/ml HYPERTHYROID 0.34-5.60 UIU/ml EUTHYROID >5.60 UIU/ml HYPOTHYROID Performed By: #### L DH, BMP, LIVER, CRP #### [facility] [address] [place] [address] Dr. Darius Zepeda MRI LSPINE WO CONon 11-05-19 MRI LSPINE WO CON EXAMINATION: MRI LSP [...] BIRGIT HAMILTON Date: 2021-11-04 15:15 Normal [facility] FERRITINon 06-02-2021 Ferritin [Mass/Vol] 46 ng/mL Normal 15-150 [facility] Comment on above: Performed By: #### L DH, BMP, LIVER, CRP #### [facility] [address] [place], [place] [address] Dr. Darius Zepeda VITAMIN B12on 06-02-2021 Cobalamin (Vitamin B12) [Mass/Vol] 637 pg/mL Normal 232-1245 [facility] Comment on above: Performed By: #### L DH, BMP, LIVER, CRP #### [facility] [address] [place], [place] [address] Dr. Darius Zepeda GLYCOHEMOGLOBIN A1Con 2020 ADA RECOMMENDATION ADA THERAPEUTIC TARG ET 6.0 - 7.0 ACTION SUGGESTED > 7.0 Normal [facility] Comment on above: Performed By: #### L DH, BMP, LIVER, CRP #### [facility] [address] [address] [address] Darius Zepeda Glucose [Mass/Vol] 111 mg/dL Normal [facility] Comment on above: Performed By: #### L DH, BMP, LIVER, CRP #### [facility] [address] [address] [address] Darius Zepeda HbA1c (Bld) [Mass fraction] 5.5 % Normal <=6.0 [facility] Comment on above: Performed By: #### L DH, BMP, LIVER, CRP #### [facility] [address] [address] [address] Darius Zepeda IRONon 06-01-2021 Iron [Mass/Vol] 55.0 ug/dL Normal 37.0-170.0 [facility] Comment on above: Performed By: #### I HO #### [facility] [address] [address] [address] Darius Zepeda TSHon 06-01-2021 TSH 3.277 uIU/mL Normal 0.470-4.680 [facility] Comment on above: Performed By: #### L DH, BMP, LIVER, CRP #### [facility] [address] [address] [address] Darius Zepeda TSH RANGE SEE BELOW Normal [facility] Comment on above: Result Comment: <0.3 4 UIU/ml HYPERTHYROID 0.34-5.60 UIU/ml EUTHYROID >5.60 UIU/ml HYPOTHYROID Performed By: #### L DH, BMP, LIVER, CRP #### [facility] [address] [place] [address] Dr. Darius Zepeda XR LSPINE 2_3 VIEWSon [...] CARMEL GOVEA Date: 2021-05-26 07:10 Normal [facility] CBC AUTO DIFFon 05-25-2021 BASO # 0.1 103/ul Normal 0.0-0.1 [facility] Comment on above: Performed By: #### L DH, BMP, LIVER, CRP #### [facility] [address] [address] [address] Darius Zepeda Basophils/100 WBC (Bld) 0.6 % Normal 0.2-2.0 [facility] Comment on above: Performed By: #### L DH, BMP, LIVER, CRP #### [facility] [address] [address] [address] Darius Zepeda EO # 0.1 103/ul Normal 0.0-0.7 [facility] Comment on above: Performed By: #### L DH, BMP, LIVER, CRP #### [facility] [address] [address] [address] Darius Zepeda Eosinophils/100 WBC (Bld) 1.0 % Normal 0.9-7.0 [facility] Comment on above: Performed By: #### L DH, BMP, LIVER, CRP #### [facility] [address] [address] [address] Darius Zepeda Erythrocyte distribution width (RBC) [Ratio] 14.0 % Normal 11.0-15.0 [facility] Comment on above: Performed By: #### L DH, BMP, LIVER, CRP #### [facility] [address] [address] [address] Darius Zepeda Hematocrit (Bld) [Volume fraction] 38.4 % Normal 36.0-48.0 [facility] Comment on above: Performed By: #### L DH, BMP, LIVER, CRP #### [facility] [address] [address] [address] Darius Zepeda Hemoglobin (Bld) [Mass/Vol] 11.9 g/dL Critically low 12.0-16.0 [facility] Comment on above: Performed By: #### L DH, BMP, LIVER, CRP #### [facility] [address] [place] [address] Dr. Darius Zepeda IG # 0.02 10e3/ul Normal 0.00-0.03 [facility] Comment on above: Performed By: #### L DH, BMP, LIVER, CRP #### [facility] [address] [place] [address] Dr. Darius Zepeda IG % 0.2 % Normal 0.0-0.5 [facility] Comment on above: Performed By: #### L DH, BMP, LIVER, CRP #### [facility] [address] [place] [address] Dr. Darius Zepeda LYMPH # 2.2 103/ul Normal 1.2-3.8 [facility] Comment on above: Performed By: #### L DH, BMP, LIVER, CRP #### [facility] [address] [place] [address] Dr. Darius Zepeda Lymphocytes/100 WBC (Bld) 24.0 % Normal 20.5-60.0 [facility] Comment on above: Performed By: #### L DH, BMP, LIVER, CRP #### [facility] [address] [place] [address] Dr. Darius Zepeda MANUAL DIFF REQ NO Normal [facility] Comment on above: Performed By: #### L DH, BMP, LIVER, CRP #### [facility] [address] [place] [address] Dr. Darius Zepeda MCH (RBC) [Entitic mass] 25.5 pg Critically low 26.7-34.0 [facility] Comment on above: Performed By: #### L DH, BMP, LIVER, CRP #### [facility] [address] [place] [address] Dr. Darius Zepeda MCHC (RBC) [Mass/Vol] 31.0 g/dL Normal 29.9-35.2 [facility] Comment on above: Performed By: #### L DH, BMP, LIVER, CRP #### [facility] [address] [place] [address] Dr. Darius Zepeda MCV (RBC) [Entitic vol] 82.2 fL Normal 81.0-99.0 [facility] Comment on above: Performed By: #### L DH, BMP, LIVER, CRP #### [facility] [address] [place] [address] Dr. Darius Zepeda MONO # 0.6 103/ul Normal 0.3-0.8 [facility] Comment on above: Performed By: #### L DH, BMP, LIVER, CRP #### [facility] [address] [place] [address] Dr. Darius Zepeda Monocytes/100 WBC (Bld) 6.5 % Normal 1.7-12.0 [facility] Comment on above: Performed By: #### L DH, BMP, LIVER, CRP #### [facility] [address] [place] [address] Dr. Darius Zepeda NEUT # 6.1 103/ul Normal 1.4-6.5 [facility] Comment on above: Performed By: #### L DH, BMP, LIVER, CRP #### [facility] [address] [place] [address] Dr. Darius Zepeda Neutrophils/100 WBC (Bld) 67.7 % Normal 43.0-75.0 [facility] Comment on above: Performed By: #### L DH, BMP, LIVER, CRP #### [facility] [address] [place] [address] Dr. Darius Zepeda Platelet mean volume (Bld) [Entitic vol] 9.6 fL Normal 9.5-13.5 [facility] Comment on above: Performed By: #### L DH, BMP, LIVER, CRP #### [facility] [address] [place] [address] Dr. Darius Zepeda PLT 228 103/ul Normal 150-450 [facility] Comment on above: Performed By: #### L DH, BMP, LIVER, CRP #### [facility] [address] [address] [address] Darius Zepeda RBC 4.67 106/ul Normal 4.20-5.40 [facility] Comment on above: Performed By: #### L DH, BMP, LIVER, CRP #### [facility] [address] [place] [address] Dr. Darius Zepeda WBC 9.0 103/ul Normal 4.0-11.0 [facility] Comment on above: Performed By: #### L DH, BMP, LIVER, CRP #### [facility] [address] [place] [address] Dr. Darius Zepeda PROF 14(COMP METB)on 021 Albumin [Mass/Vol] 3.8 g/dL Normal 3.5-5.0 [facility] Comment on above: Performed By: #### L DH, BMP, LIVER, CRP #### [facility] [address] [place] [address] Dr. Darius Zepeda Albumin/Globulin [Mass ratio] 0.9 {ratio} Normal [facility] Comment on above: Performed By: #### L DH, BMP, LIVER, CRP #### [facility] [address] [place] [address] Dr. Darius Zepeda ALP [Catalytic activity/Vol] 94 U/L Normal 38-126 [facility] Comment on above: Performed By: #### L DH, BMP, LIVER, CRP #### [facility] [address] [place] [address] Dr. Darius Zepeda ALT [Catalytic activity/Vol] 27 U/L Normal 9-52 [facility] Comment on above: Performed By: #### L DH, BMP, LIVER, CRP #### [facility] [address] [place] [address] Dr. Darius Zepeda Anion gap [Moles/Vol] 13.3 mmol/L Normal [facility] Comment on above: Performed By: #### L DH, BMP, LIVER, CRP #### [facility] [address] [address] [address] Darius Zepeda AST [Catalytic activity/Vol] 16 U/L Normal 14-36 [facility] Comment on above: Performed By: #### L DH, BMP, LIVER, CRP #### [facility] [address] [place] [address] Dr. Darius Zepeda Bilirubin [Mass/Vol] 0.5 mg/dL Normal 0.2-1.3 [facility] Comment on above: Performed By: #### L DH, BMP, LIVER, CRP #### [facility] [address] [place] [address] Dr. Darius Zepeda Calcium [Mass/Vol] 9.5 mg/dL Normal 8.4-10.2 [facility] Comment on above: Performed By: #### L DH, BMP, LIVER, CRP #### [facility] [address] [place] [address] Dr. Darius Zepeda Chloride [Moles/Vol] 103 mmol/L Normal 98-107 [facility] Comment on above: Performed By: #### L DH, BMP, LIVER, CRP #### [facility] [address] [place] [address] Dr. Darius Zepeda CO2 [Moles/Vol] 27.2 mmol/L Normal 22.0-30.0 [facility] Comment on above: Performed By: #### L DH, BMP, LIVER, CRP #### [facility] [address] [place] [address] Dr. Darius Zepeda Creatinine [Mass/Vol] 0.98 mg/dL Normal 0.52-1.04 [facility] Comment on above: Performed By: #### L DH, BMP, LIVER, CRP #### [facility] [address] [place] [address] Dr. Darius Zepeda EGFR-AF CHILEAN >60 Normal >=60 [facility] Comment on above: Performed By: #### L DH, BMP, LIVER, CRP #### [facility] [address] [address] [address] Darius Zepeda EGFR-NON AF CHILEAN 55 mL/min/1.73m2 Critically low >=60 [facility] Comment on above: Performed By: #### L DH, BMP, LIVER, CRP #### [facility] [address] [address] [address] Darius Zepeda Globulin (S) [Mass/Vol] 4.2 g/dL Normal [facility] Comment on above: Performed By: #### L DH, BMP, LIVER, CRP #### [facility] [address] [address] [address] Darius Zepeda Glucose [Mass/Vol] 109 mg/dL Critically high 74-106 [facility] Comment on above: Performed By: #### L DH, BMP, LIVER, CRP #### [facility] [address] [address] [address] Darius Zepeda Potassium [Moles/Vol] 3.5 mmol/L Normal 3.4-5.0 [facility] Comment on above: Performed By: #### L DH, BMP, LIVER, CRP #### [facility] [address] [address] [address] Darius Zepeda Protein [Mass/Vol] 8.0 g/dL Normal 6.1-8.2 [facility] Comment on above: Performed By: #### L DH, BMP, LIVER, CRP #### [facility] [address] [address] [address] Darius Zepeda Sodium [Moles/Vol] 140 mmol/L Normal 137-145 [facility] Comment on above: Performed By: #### L DH, BMP, LIVER, CRP #### [facility] [address] [address] [address] Darius Zepeda Urea nitrogen [Mass/Vol] 19.0 mg/dL Critically high 7.0-17.0 [facility] Comment on above: Performed By: #### L DH, BMP, LIVER, CRP #### [facility] [address] [address] [address] Darius Zepeda Urea nitrogen/Creatinin e [Mass ratio] 19.4 mg/mg Normal [facility] Comment on above: Performed By: #### L DH, BMP, LIVER, CRP #### [facility] [address] [place] [address] Dr. Darius Zepeda Vital Signs Date Time Vital Sign Value Performing Clinician Facility 02-16-2022 13:09-0400 Blood Pressure Location Tello NILL [facility] 02-16-2022 13:09-0400 Diastolic blood pressure 86 mm[Hg] Tello NILL [facility] 02-16-2022 13:09-0400 Heart rate 74 /min Tello NILL [facility] [place] 02-16-2022 13:09-0400 Respiratory rate 16 /min Tello NILL [facility] 02-16-2022 13:09-0400 Systolic blood pressure 122 mm[Hg] Tello NILL [facility] 01-25-2022 15:04-0400 Body height 164 cm Joey Kruger MD Work Phone: [facility] 01-25-2022 15:04-0400 Body temperature 97.11 [degF] Joey Kruger MD Work Phone: [facility] 01-25-2022 15:04-0400 Body weight 81.19 kg Joey Kruger MD Work Phone: [facility] 01-25-2022 15:04-0400 Diastolic blood pressure 79 mm[Hg] Joey Kruger MD Work Phone: [facility] 01-25-2022 15:04-0400 Heart rate 76 /min Joey Kruger MD Work Phone: [facility] 01-25-2022 15:04-0400 Respiratory rate 16 /min oJey Kruger MD Work Phone: [facility] 01-25-2022 15:04-0400 SaO2% (BldA) [Mass fraction] 98 % Joey Kruger MD Work Phone: [facility] 01-25-2022 15:04-0400 Systolic blood pressure 152 mm[Hg] Joey Kruger MD Work Phone: [facility] Encounters Encounter Date Encounter Type Care Provider Facility Start: 08-11-2023 End: 08-11-2023 ambulatory CYNTHIA DAY Not Available Start: 03-31-2022 End: 04-01-2022 ambulatory [facility] Start: 03-31-2022 End: 03-31-2022 Patient encounter procedure Tello CARMONA General Surgery Franchescal/Said Juanj[facility] Start: 03-10-2022 Encounter for preprocedural laboratory examination DR TELOL CARMONA [facility] Start: 03-10-2022 End: 03-11-[address] TELLO CARMONA Facility:[facility] Start: 03-06-2022 End: 03-07-[address] TELLO CARMONA Facility:[facility] Start: 03-06-2022 End: 03-07-2022 Encounter for preprocedural laboratory examination DR TELLO CARMONA Facility:[facility] Start: 02-16-2022 End: 02-17-2022 ambulatory [facility] Start: 02-16-2022 End: 02-16-2022 Patient encounter procedure Tello CARMONA General Surgery Danny/Said [facility] Start: 02-02-2022 End: 02-02-2022 ambulatory STEPHANIE SCHAFFER Facility:[facility] Start: 01-25-2022 End: 01-25-2022 ambulatory Joey Kruger MD Work Phone: Hematology/Oncology Comment on above: 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); Malignant neoplasm of colon, unspecified part of colon (HCC) Start: 01-25-2022 End: 01-25-2022 Patient encounter procedure Joey Krugre MD Work Phone: [facility] Start: 01-22-2022 Chart abstracting Joey lopez MD Work Phone: Hematology/Oncology Start: 01-13-2022 ambulatory Tello CARMONA Facility :[facility] Start: 01-08-2022 End: 01-09-[address] BIRGIT HAMILTON Facility:[facility] Start: 12-16-2021 End: 12-17-[address] BIRGIT HAMILTON Facility:[facility] Start: 12-11-2021 End: 12-12-2021 ambulatory SURVEYOR'S ASSISTANT ROSITA SCHAFFER Facility:[facility] Start: 12-04-2021 End: 12-05-2021 ambulatory SURVEYOR'S ASSISTANT ROSITA SCHAFFER Facility:[facility] Start: 12-02-2021 End: 12-03-[address] BIRGIT HAMILTON Facility:[facility] Start: 11-11-2021 End: 11-12-2021 ambulatory STEPHANIE SCHAFFER Facility:[facility] Start: 11-04-2021 End: 11-05-[address] BIRGIT HAMILTON Facility:[facility] Start: 06-01-2021 End: 06-02-2021 ambulatory SURVEYOR'S ASSISTANT ROSITATyra SCHAFFER Facility:[facility] Start: 05-25-2021 End: 05-26-2021 ambulatory SURVEYOR'S ASSISTANT ROSITA HERNESTO Facility:[facility] Start: 04-14-2021 End: 04-15-2021 ambulatory CIELO MEME HELEN Facility:[facility] Procedures Date Procedure Procedure Detail Performing Clinician Start: 03-10-2022 Colonoscopy Tello NI LL Start: 03-10-2022 Esophagogastroduodenoscopy Tello CARMONA Start: 03-10-2007 Colonoscopy Tello NI LL Biopsy of thyroid Tello SILVA LL Colonoscopy Tello NILL Lumpectomy of left breast Mi mendydhaval DANNY Partial resection of colon M becki DANNY Plan of Treatment Date Care Activity Detail Author Start: 01-25-2025 DIABETES SCREEN DIABETES SCREEN [facility] Start: 02-04-2022 Influenza vaccination INFLUENZA (#1) [facility] Start: 06-06-2021 ADVANCE DIRECTIVE DISCUSSION ADVANCE DIRECTIVE DISCUSSION [facility] Start: 2012 BONE DENSITY BONE DENSITY [facility] Start: 2012 PNEUMOCOCCAL: 65+ (1 - PCV) PNEUMOCOCCAL: 65+ (1 - PCV) [facility] Start: 1997 SHINGRIX VACCINE (1 of 2) SHINGRIX V ACCINE (1 of 2) [facility] Start: 1992 COLOGUARD (FIT-DNA) COLOGUARD (FIT-D NA) [facility] Start: 1992 Colonoscopy COLONOSCOPY [facility] Start: 1992 COLORECTAL CANCER SCREENING COLORECTAL CANCER SCREENING [facility] Start: [address] COLONOGRAPHY [facility] Start: 1992 DIABETES SCREEN DIABETES SCREEN [facility] Start: 1992 FECAL OCCULT BLOOD FECAL OCCULT BLOO D [facility] Start: 1992 LIPID SCREEN LIPID SCREEN [facility] Start: 1992 SIGMOIDOSCOPY SIGMOIDOSCOPY [facility] Start: 1987 Mammography MAMMOGRAM [facility] Start: 1966 Urine microalbumin profile DTAP,TDAP ,TD (1 - Tdap) [facility] Start: 1965 HEPATITIS C SCREENING HEPATITIS C SC REENING [facility] Start: 1959 Adult depression scr [facility] assessment DEPRESSION SCREENING [facility] Start: 1947 COVID-19 VACCINE (#1) COVID-19 VACCI NE (#1) [facility] Immunizations Immunization Date Immunization Notes Care Provider Fa cilitristan 01-23-2022 COVID-19 vaccine, fu ll dose (MODERNA) Joey Kruger MD Work Phone: [facility] 04-14-2021 COVID-19 vaccine, fu ll dose (MODERNA) Joey Kruger MD Work Phone: [facility] 08-27-2020 COVID-19 vaccine, fu ll dose (MODERNA) Joey Kruger MD Work Phone: [facility] 07-21-2020 COVID-19 vaccine, fu ll dose (MODERNA) Joey Kruger MD Work Phone: [facility] Payers Date Payer Category Payer Medicaid MEDICAID [facility] MEDICAID [id number] 2022-2022 [address] [place] [address] Medicaid [id number] 1993 Medicare MEDICARE MEDICAR E A AND B [id number] 1993-[address]22 [place] [address] Medicare [id number] 1959 Medicaid [id number] 1959 Medicare [id number] 1959 Self-pay [id number] 1947 Unknown [id number] 1947 Unknown [id number] [id number] 1947 Unknown [id number] 2.16.840.1.364029.3.579.2.593 1947 Unknown [id number] 2.16.840.1.689461.3.579.2.593 1947 Unknown [id number] 2.16.840.1.700455.3.579.2.593 1947 Unknown [id number] 2.16.840.1.633043.3.579.2.593 1947 Unknown [id number] 2.16.840.1.268888.3.579.2.593 1947 Unknown [id number] 2.16.840.1.492908.3.579.2.593 1947 Unknown [id number] 2.16.840.1.681174.3.579.2.593 1947 Unknown [id number] 2.16.840.1.152347.3.579.2.593 1947 Unknown [id number] 2.16.840.1.455526.3.579.2.593 1947 Unknown [id number] 2.16.840.1.271488.3.579.2.593 1947 Unknown [id number] 2.16.840.1.840792.3.579.2.727 1947 Unknown [id number] 2.16.840.1.051978.3.579.2.727 1947 Unknown [id number] 2.16.840.1.870925.3.579.2.727 1947 Unknown [id number] 2.16.840.1.639112.3.579.2.727 1947 Unknown [id number] [id number] Medicare [id number] Unknown [id number] [id number] Social History Date Type Detail Facility Start: 10-16-2013 End: 02-16-2022 Tobacco smoking status ARIS Never smoked tobacco [facility] Start: 10-16-2013 End: 01-25-2022 Tobacco use and exposure Smokeless tobacco non-user [facility] Start: 01-22-2022 End: 01-25-2022 Alcohol intake Current non-drinker of alcohol (finding) [facility] Start: 1945 Sex Assigned At Not on file [facility] History of tobacco use Passive smoker [facility] Start: 01-15-2022 End: 01-25-2022 Exposure to SARS-CoV-2 (event) Not sure [facility] Tobacco smoking status Never [facility] Sex Assigned At [facility] Functional Status Date Assessment Result Facility 02-16-2022 [...] good condition. CC: Rosita Schaffer CNP [facility] 02-16-2022 Note Chief Complaint consultation for [...] Tobacco Use:., 02/04 (more content not included)... [facility] Comment on above: Result Comment: Elec tronically Signed By: DANNY HINDS, Tello Kwon\Date and Time Signed: 02/16/22 14:37 EDT 02-03-2022 Note HNO ID: [id number] Author: Joey Kruger MD Service: ? Author Type: Physician Type: Progress Notes Filed: 02/07/2022 12:04 AM Note Text: NAME: Riana Garcia [facility] NO.: [id number] DATE OF SERVICE: February 03, 2022 Some [...] with but also will need records from [facility] with respect to both pathology and [...] 01/25/2022) hydrochlorothiazide (HYDRODIU (more content not included)... [facility] 01-25-2022 Note HNO ID: [id number] Author: Joey Kruger MD Service: ? Author Type: Physician Type: Progress Notes Filed: 02/01/2022 8:13 PM Note Text: NAME: Riana Garcia NO.: [id number] DATE OF SERVICE: January 25, 2022 Referring [...] with but also will need records from [facility] with respect to both pathology and surgery. She is also scheduled to have a thyroid nodule biopsied. 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 PLAN: 1. Need path and surgery records from colon cancer prior to 2006 - [facility] 2. Labs drawn today 3. RTC in [...] for chemotherapy Initial Visit, January 25, 2022: Rianajarocho Garcia presents today Hematology and Oncology evaluation. [...] 11.5 Hematocrit (%) (more content not included)... [facility] 01-25-2022 Instructions Joey Kruger MD - 01/25/2022 3:34 PM EDT 1. Need path and surgery records from colon cancer prior to 2006 - [facility] [facility] 2. Labs drawn today 3. RTC in 9 days to discuss 4. Keep appointment for thyroid nodule biopsy documented in this encounter [facility] 01-25-2022 History of Presen t illness Narrative Images from the original note were not included. NAME: Maria InesRiana hall CLINIC NO.: [id number] DATE OF SERVICE: January 25, 2022 Referring [...] with but also will need records from [facility] with respect to both pathology and surgery. She is also scheduled to have a thyroid nodule biopsied. 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 PLAN: 1. Need path and surgery records from colon cancer prior to 2006 - [facility] 2. Labs drawn today 3. RTC in [...] which included preparing to see the patient, [id number] patient care, completing clinical documentation, obtaining and/or reviewing separately obtained history, performing a medically appropriate examination, counseling and educating the patient/family/caregiver, ordering medications, tests, or procedures, communicating with other HCPs (not separately reported), and independently interpreting results (not separately reported). Joey Kruger MD, CPE Hematology and Oncology Services Provided at: [place], [place] CC: ROSITA WOO [address] [facility] [address] Sary Holt MD [address] [facility] [address] documented in this encounter [facility] 01-25-2022 Nurse Note Patient had a Covid booster Tuesday and her Left arm (at injections site) is red with a jena around it, she wonders if it is an allergic reaction? 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 Malignant neoplasm of colon, unspecified part of colon (HCC) [facility] No data available for this section General Surgery [place] Progress note No data available for this section General Surgery [place] Summary Purpose Family History No Family History Records FoundNo Family History Records FoundNo Family History Records FoundNo Family History Records FoundNo Family History Records Found Advance Directives No Advanced Directives Records FoundNo Advanced Directives Records FoundNo Advanced Directives Records FoundNo Advanced Directives Records FoundNo Advanced Directives Records Found Additional Source Comments INFORMATION SOURCE (unrecogn ized section and content) DATE CREATED AUTHOR 01/05/2022 [facility] DATE CREATED AUTHOR AUTHOR'S ORGANIZ ATION 02/06/2022 [facility] DATE CREATED AUTHOR AUTHOR'S ORGANIZ ATION 03/28/2022 [facility] DATE CREATED AUTHOR AUTHOR'S ORGANIZ ATION 04/19/2022 Erick Hardin [facility] DATE CREATED AUTHOR AUTHOR'S ORGANIZ ATION 08/12/2023 [facility] EPIC Source Comments (unrecognize d section and content) In the event this informatio n is protected by the Federal Confidentiality of Alcohol and Drug Abuse Patient Records regulations: The Federal rules restrict any use of the information to criminally investigate or prosecute any alcohol or drug abuse patient.[facility] the event this information is protected by the Federal Confidentiality of Alcohol and Drug Abuse Patient Records regulations: The Federal rules restrict any use of the information to criminally investigate or prosecute any alcohol or drug abuse patient.[facility] Care Teams (unrecognized sec tion and content) Classifier Tender Relationship Specialty Start Date End Date Sary Holt MD [address] [place] [address] PCP - General Family Practice 09/27/13 Classifier Tender Relationship Specialty Start Date End Date Sary Holt MD [address] [place] [address] PCP - General Family Practice 09/27/13 Reason [...] BE BASED ON THE PRIMARY CLINICAL RECORDS. [facility] [employer] [facility]. provides no warranty or guarantee of the accuracy or completeness of information in this document.
[2023-11-04 13:46] LABS: Basophils Percent Auto 0.5 % (0.2-2.0); Eosinophils Absolute Auto 0.1 10^3/uL (0.0-0.7); Eosinophils Percent Auto 1.2 % (0.9-7.0); Hematocrit 35.8 % (36.0-48.0); Hemoglobin 11.2 g/dL (12.0-16.0); Immature Granulocytes Abs Auto 0.01 10^3/uL (0.00-0.03); Immature Granulocytes Pct Auto 0.1 % (0.0-0.5); Lymphocytes Absolute Auto 2.3 10^3/uL (1.2-3.8); Lymphocytes Percent Auto 25.9 % (20.5-60.0); Mean Corpuscular HGB Conc 31.3 g/dL (29.9-35.2); Mean Corpuscular Hemoglobin 26.2 pg (26.7-34.0); Mean Corpuscular Volume 83.6 fL (81.0-99.0); Mean Platelet Volume 9.8 fL (9.5-13.5); Monocytes Absolute Auto 0.7 10^3/uL (0.3-0.8); Monocytes Percent Auto 7.9 % (1.7-12.0); Neutrophils Absolute Auto 5.7 10^3/uL (1.4-6.5); Neutrophils Percent Auto 64.4 % (43.0-75.0); Platelet Count 203 10^3/uL (150-450); Red Blood Count 4.28 10^6/uL (4.20-5.40); Red Cell Distribution Width 13.7 % (11.0-15.0); White Blood Count 8.8 10^3/uL (4.0-11.0)
[2023-11-04 13:51] LABS: Bilirubin Urine NEGATIVE (NEGATIVE); Blood Urine NEGATIVE (NEGATIVE); Clarity Urine CLEAR (CLEAR); Color Urine YELLOW (YELLOW); Glucose Urine UA NEGATIVE (NEGATIVE); Ketones Urine NEGATIVE (NEGATIVE); Leukocyte Esterase Urine NEGATIVE (NEGATIVE); Nitrite Urine NEGATIVE (NEGATIVE); Protein Urine NEGATIVE (NEG/TRACE); Specific Gravity Urine 1.025 (1.005-1.025); Urobilinogen Urine 0.2 EU/dL (0.2-1.0)
[2023-11-04 13:54] LABS: Urine Microscopic Indicated NO
[2023-11-04 14:11] LABS: Creatinine Urine Random 128.56 mg/dL (20.00-300.00); Microalbumin Urine Random 1.8 mg/dL (<=30.0)
[2023-11-04 14:28] LABS: Alanine Aminotransferase 22 U/L (14-59); Albumin Globulin Ratio 0.8; Albumin Level 3.4 g/dL (3.4-5.0); Alkaline Phosphatase 92 U/L (46-116); Anion Gap 10.8; Aspartate Amino Transferase 18 U/L (15-37); BUN Creatinine Ratio 27.6; Bilirubin Total 0.7 mg/dL (0.2-1.0); Calcium 8.7 mg/dL (8.5-10.1); Carbon Dioxide 29.8 mmol/L (21.0-32.0); Chloride 105 mmol/L (98-107); Estimated GFR (African America >60 (>=60); Estimated GFR (Non-African Ame >60 (>=60); Globulin 4.1 g/dL; Glucose 100 mg/dL (74-106); Potassium 3.6 mmol/L (3.5-5.1); Sodium 142 mmol/L (136-145); Thyroid Stimulating Hormone 3.222 uIU/mL (0.358-3.740); Total Protein 7.5 g/dL (6.4-8.2)
[2023-11-04 14:47] LABS: Free T4 0.82 ng/dL (0.76-1.46)
== END 2023-11-04 13:03 | disposition home or self-care (01) ==
LOC: LAB 13:04
PROVIDERS: PCP Nurse Practitioner; Visit Provider Nurse Practitioner
DX: R53.83 Other fatigue (principal); I10 Essential (primary) hypertension; D50.9 Iron deficiency anemia, unspecified; E04.1 Nontoxic single thyroid nodule
CPT/HCPCS: 36415; 80053; 81003; 82043; 82306; 82570; 82607; 82728; 83540; 84439; 84443; 85025

== ENCOUNTER 2024-01-25 13:25 | Emergency (ER) | payer MEDICARE, SELFPAY ==
[2024-01-25] VITALS (11 sets, daily range): BP systolic 167–185; BP diastolic 82–109; PULSE 78–82; TEMP 36.5; O2SAT 97–98; BMI 31.8
--- NOTE | 2024-01-25 13:43 | XR_ITS ---
The [address] [address] Patient Name: RIANA QUILES MRN: [id number] date: 1945 Sex: F Assigned Patient Location: ER Current Patient Location: ER Accession/Order Number: [id number] Exam Date: 01/25/2024 14:00 Report Date: 01/25/2024 14:21 At the request of: MARY NORWOOD Procedure: XR chest 1V EXAMINATION: XR chest 1V HISTORY: Weakness, elevated BP COMPARISON: XR chest 12/11/2021 FINDINGS: LUNGS: Minimal haziness and stranding within the lung bases. VASCULATURE: No increased pulmonary vasculature. PLEURA: No pneumothorax, effusion, or pleural thickening. CARDIAC: No cardiomegaly or cardiac silhouette abnormality. MEDIASTINUM: No visible mass or adenopathy. BONES: No fracture or visible bone lesion. OTHER: Negative. XR/XR chest 1V IMPRESSION: 1. Evaluation is slightly limited by patient rotation. 2. Mild bibasilar atelectasis or possibly infiltrates. Electronically authenticated by: CARMEL RUIZ Date: 01/25/2024 14:21
--- NOTE | 2024-01-25 13:43 | ECG_ITS ---
The [facility] Test Date: 2024-01-25 Pat Name: RIANA QUILES Department: Room: - Gender: Female Development Expert: : 1945 Requested By: LISA ERIC Order Number: [id number] Reading MD: MARY EAGLE Measurements Intervals [place] Rate: 79 P: 57 CO: 144 QRS: 17 QRSD: 82 T: 48 QT: 374 QTc: 409 Interpretive Statements 1100 Sinus rhythm 8102 Low QRS voltage in chest leads 9120 atypical ECG No previous ECG available for comparison Electronically Signed On 01-25-2024 18:12:08 EDT by MARY EAGLE
--- NOTE | 2024-01-25 13:44 | CT_ITS ---
The [address] [address] Patient Name: RIANA QUILES MRN: [id number] date: 1945 Sex: F Assigned Patient Location: ER Current Patient Location: Accession/Order Number: [id number] Exam Date: 01/25/2024 14:00 Report Date: 01/25/2024 14:26 At the request of: MARY NORWOOD Procedure: CT head/brain wo con EXAMINATION: CT head/brain wo con HISTORY: Weakness, elevated BP COMPARISON: No relevant comparison available. TECHNIQUE: Axial CT images were obtained without IV contrast. Dose reduction techniques were achieved by using automated exposure control and/or adjustment of mA and/or kV according to patient size and/or use of iterative reconstruction technique. FINDINGS: BRAIN: No edema, hemorrhage, mass, acute infarction, or inappropriate atrophy. CSF SPACES: No hydrocephalus, subarachnoid hemorrhage, or mass. Appropriate for age. SKULL: No fracture, mass, or other significant visible lesion. SINUSES: No significant mucosal thickening or fluid on the limited views. ORBITS: No appreciable abnormality on the limited views. OTHER: Negative CT/CT head/brain wo con IMPRESSION: 1. No intracranial hemorrhage or appreciable acute abnormality. 2. Mild age consistent chronic changes. Electronically authenticated by: CARMEL RUIZ Date: 01/25/2024 14:26
--- NOTE | 2024-01-25 13:45 | ED.GENADUL1 ---
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 She states that the proj engineer office checked her blood pressure and suggested she come to the emergency department. She states for the last 2 days she has felt funny and more unsteady on her feet. She denies headache, new visual changes, chest pain, shortness of breath, recent illness or new peripheral paresthesias. She states she has had increasing difficulty driving over the last year with visual changes which was why she was at the proj engineer office. She has missed multiple appointments with her PCP over the last year due to not feeling well driving. No medications taken prior to arrival. Related Data Home Medications ?Medication ?Instructions ?Recorded ?Confirmed carbidopa 25 mg-levodopa 100 mg 0.5 tab PO TID 06/02/23 06/03/23 tablet carvedilol 12.5 mg tablet 12.5 mg PO BID 06/02/23 06/03/23 ferrous sulfate 325 mg (65 mg 325 mg PO QDAY 06/02/23 06/03/23 iron) tablet hydrochlorothiazide 12.5 mg tablet 12.5 mg PO DAILY 06/02/23 06/03/23 losartan 50 mg tablet 50 mg PO QDAY 06/02/23 06/03/23 Allergies Allergy/AdvReac Type Severity Reaction Status Date / Time No Known Drug Allergies Allergy Verified 06/03/23 14:50 Opioid HPI Opioid Management Most Recent Opioid Data: Last Pain Scale 2 06/04/23 10:10 Review of Systems ROS Constitutional Denies: fever or chills Ears, nose, mouth, and throat Denies: throat pain or nasal congestion Cardiovascular Denies: chest pain Respiratory Denies: shortness of breath or cough Gastrointestinal Denies: abdominal pain, nausea or vomiting Musculoskeletal Denies: back pain Integumentary/Breast Denies: rash Endocrine Denies: excessive urination [facility] Medical History (Updated 01/25/24 @ 14:57 by NAOMI Geiger) Personal history of colon cancer ?Z85.038 - Personal history of other malignant neoplasm of large intestine (ICD-10) Parkinsons disease ?G20.A1 - Parkinson's disease without dyskinesia, without mention of fluctuations (ICD-10) COPD (chronic obstructive pulmonary disease) ?J44.9 - Chronic obstructive pulmonary disease, unspecified (ICD-10) HTN (hypertension) ?I10 - Essential (primary) hypertension (ICD-10) Bowel obstruction ?K56.609 - Unspecified intestinal obstruction, unspecified as to partial versus complete obstruction (ICD-10) Bowel obstruction ?K56.609 - Unspecified intestinal obstruction, unspecified as to partial versus complete obstruction (ICD-10) Colon cancer ?C18.9 - Malignant neoplasm of colon, unspecified (ICD-10) Surgical History History of colectomy ?Z90.49 - Acquired absence of other specified parts of digestive tract (ICD-10) Family History Father Family history of cancer Family history of hypertension Mother Family history of hypertension Sister Family history of hypertension Social History (Updated 06/03/23 @ 21:01 by Mary Joseph) Within the past year, how often did you have a drink containing alcohol: never Within the past year, how often did you have six or more drinks on one occasion: never Score interpretation: A score less than 3 is consistent with normal alcohol consumption. 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 Known occupational exposures/hazards: No Highest level of school completed/degree received: high school graduate Do you want help with school or training: No Are you now , , , , never or living with a partner: In a typical week, how many times do you talk on the telephone with family, friends, or neighbors: 3 or more times per week How often do you get together with friends or relatives: 3 or more times per week How often do you attend synagogue or jewish services: never Do you belong to any clubs or organizations such as synagogue groups unions, fraternal or athletic groups, or school groups: no Total score: 1 Score interpretation: A score of less than or equal to 1 indicates the most socially isolated. Little interest or pleasure in doing things: several days Feeling down, depressed, or hopeless: several days Feel stressed/tense/nervous/anxious/difficulty sleeping: very much Life stressor details: caregiver stress Due to disability, difficulty making decisions: No Do you think of yourself as: straight/heterosexual Gender Identity: female Exam Constitutional Vital Signs, click to edit/add: Last Vital Signs Temp 97.7 F 01/25/24 13:29 Pulse 82 01/25/24 14:43 Resp 20 01/25/24 14:43 BP 167/92 H 01/25/24 15:16 Pulse Ox 97 01/25/24 13:50 Course Vital Signs Vital signs: Vital Signs Temperature 97.7 F 01/25/24 13:29 Pulse Rate 79 01/25/24 13:29 Respiratory Rate 20 01/25/24 13:29 Blood Pressure 177/109 H 01/25/24 13:29 Pulse Oximetry 98 01/25/24 13:29 Temperature 97.7 F 01/25/24 13:29 Pulse Rate 82 01/25/24 14:43 Respiratory Rate 20 01/25/24 14:43 Blood Pressure 167/92 H 01/25/24 15:16 Pulse Oximetry 97 01/25/24 13:50 Medical Decision Making MDM Narrative Medical decision making narrative: Patient treated with gentle IV fluids in the ER, blood pressure remains moderately elevated, she was given IV labetalol. CT of the brain, chest x-ray, lab studies, urine specimen are unremarkable and the patient will be discharged home. She was able to ambulate, she drove herself to the emergency department. She is encouraged to follow closely with her regular primary care provider. Suspect her unsteadiness may be progression of her Parkinson's. Return to the ER if symptoms change or worsen. SUPERVISED APC VISIT, PHYSICIAN ATTESTATION: Based on the medical record the care appears appropriate. ? Medical Records Medical records reviewed: Yes I reviewed the patient's medical records Lab Data Lab results reviewed: Yes I reviewed the patient's lab results Labs: Lab Results 01/25/24 01/25/24 Range/Units 13:47 14:24 WBC 9.0 (4.0-11.0) 10^3/uL RBC 4.50 (4.20-5.40) 10^6/uL Hgb 11.8 L (12.0-16.0) g/dL Hct 37.1 (36.0-48.0) % MCV 82.4 (81.0-99.0) fL MCH 26.2 L (26.7-34.0) pg MCHC 31.8 (29.9-35.2) g/dL RDW 13.5 (11.0-15.0) % Plt Count 214 (150-450) 10^3/uL MPV 10.2 (9.5-13.5) fL Neut % (Auto) 71.4 (43.0-75.0) % Lymph % (Auto) 20.7 (20.5-60.0) % [place] % (Auto) 6.6 (1.7-12.0) % Eos % (Auto) 0.7 L (0.9-7.0) % Baso % (Auto) 0.4 (0.2-2.0) % Neut # (Auto) 6.4 (1.4-6.5) 10^3/uL Lymph # (Auto) 1.9 (1.2-3.8) 10^3/uL [place] # (Auto) 0.6 (0.3-0.8) 10^3/uL Eos # (Auto) 0.1 (0.0-0.7) 10^3/uL Baso # (Auto) 0.0 (0.0-0.1) 10^3/uL Abs Immat Gran (auto) 0.02 (0.00-0.03) 10^3/uL Imm/Tot Granulo (auto) 0.2 (0.0-0.5) % PT 10.3 (9.0-11.6) sec INR 0.97 Sodium 139 (136-145) mmol/L Potassium 3.7 (3.5-5.1) mmol/L Chloride 104 (98-107) mmol/L Carbon Dioxide 30.3 (21.0-32.0) mmol/L Anion Gap 8.4 BUN 25.0 H (7.0-18.0) mg/dL Creatinine 0.87 (0.55-1.02) mg/dL Est GFR ( Amer) >60 (>=60) Est GFR (Non-Af Amer) >60 (>=60) BUN/Creatinine Ratio 28.7 Glucose 108 H (74-106) mg/dL Lactate 0.8 (0.4-2.0) mmol/L Calcium 9.0 (8.5-10.1) mg/dL Total Bilirubin 0.7 (0.2-1.0) mg/dL AST 16 (15-37) U/L ALT 19 (14-59) U/L Alkaline Phosphatase 87 (46-116) U/L Troponin I High Sens <4.0 L (4.0-51.3) pg/mL Total Protein 7.3 (6.4-8.2) g/dL Albumin 3.5 (3.4-5.0) g/dL Globulin 3.8 g/dL Albumin/Globulin Ratio 0.9 TSH 3.257 (0.358-3.740) uIU/mL Urine Color Lt. yellow (YELLOW) Urine Clarity Clear (CLEAR) Urine pH 7.0 (5.0-9.0) Ur Specific [place] 1.010 (1.005-1.025) Urine Protein Negative (NEG/TRACE) mg/dL Urine Glucose (UA) Negative (NEGATIVE) mg/dL Urine Ketones Negative (NEGATIVE) mg/dL Urine Occult Blood Negative (NEGATIVE) Urine Nitrite Negative (NEGATIVE) Urine Bilirubin Negative (NEGATIVE) Urine Urobilinogen 0.2 (0.2-1.0) EU/dL Ur Leukocyte Esterase Negative (NEGATIVE) Imaging Data CT scan - head: Attestation: I have reviewed the pertinent imaging results. Radiologist's impression: ITS Impressions Chest X-Ray 01/25/24 13:43 IMPRESSION: 1. Evaluation is slightly limited by patient rotation. 2. Mild bibasilar atelectasis or possibly infiltrates. Electronically authenticated by: CARMEL RUIZ Date: 01/25/2024 14:[address] 01/25/24 13:44 IMPRESSION: 1. No intracranial hemorrhage or appreciable acute abnormality. 2. Mild age consistent chronic changes. Electronically authenticated by: CARMEL RUIZ Date: 01/25/2024 14:26 ECG Data Attestation: I personally reviewed and interpreted this ECG as follows: (Normal sinus rhythm at a rate of 79, no acute ST elevation or ectopy. EKG reviewed by attending physician.) Discharge Plan Discharge Stand Alone Forms: Work/School Release, Portal Instructions Chief Complaint: Recheck/Abnormal Lab/Rx Clinical Impression: Hypertension, General unsteadiness Patient Disposition: Home, Self-Care Time of Disposition Decision: 14:57 Condition: Good Prescriptions / Home Meds: No Action losartan 50 mg tablet 50 mg PO QDAY ferrous sulfate 325 mg (65 mg iron) tablet 325 mg PO QDAY carbidopa-levodopa 25-100 mg tablet 0.5 tab PO TID hydrochlorothiazide 12.5 mg tablet 12.5 mg PO DAILY carvedilol 12.5 mg tablet 12.5 mg PO BID Print Language: Danish Instructions: Hypertension (ED) Additional Instructions: Please follow up with Rosita's office for further evaluation Referrals: Rosita Schaffer NP [Primary Care Provider] - 1 week Discharge Date/Time: 01/25/24 15:30
--- OUTSIDE RECORDS SUMMARY | 2024-01-25 13:51 | XMS_ITS | CCD ---
Author Organization [facility] Care Team Providers Care Aircraft Sales Representative Name Role Phone Sary Holt MD Primary Care Provider [phone] AICHHOLZ, ROSITA J Primary Care Physician AICHHOLZ, LOCAL COMPANY TANKER DRIVER ROSITA Consulting Unavailable AICHHOLZ, LOC[employer] TANKER DRIVER ROSITA Primary Care Unavailable AICHHOLZ, LOCAL COMPANY TANKER DRIVER ROSITA Attending Unavailable AICHHOLZ, LOC[employer] COMPANY TANKER DRIVER ROSITA Admitting Unavailable DR BIRGIT HAMILTON V Consulting Unavailable AICHHOLZ, LOC[employer] TANKER DRIVER ROSITA Primary Care Unavailable AICHHOLZ, LOCAL COMPANY TANKER DRIVER ROSITA Attending Unavailable AICHHOLZ, LOCAL COMPANY TANKER DRIVER ROSITA Admitting Unavailable AICHHOLZ, LOC[employer] COMPANY TANKER DRIVER ROSITA Consulting Unavailable NILL, DR JAVED Consulting Unavailable AICHHOLZ, LOC[employer] TANKER DRIVER ROSITA Primary Care Unavailable NILL, DR JAVED Attending Unavailable NILL, DR JAVED Admitting Unavailable AICHHOLZ, LOC[employer] TANKER DRIVER ROSITA Consulting Unavailable MISCDR POWER Primary Care Unavailable AICHHOLZ, LOC[employer] TANKER DRIVER ROSITA Attending Unavailable AICHHOLZ, LOCAL COMPANY TANKER DRIVER ROSITA Admitting Unavailable DR CARMEL GOVEA Consulting Unavailable AICHHOLZ, LOC[employer] COMPANY TANKER DRIVER ROSITA Consulting Unavailable AICHHOLZ, LOCAL COMPANY TANKER DRIVER ROSITA Primary Care Unavailable AICHHOLZ, LOC[employer] TANKER DRIVER ROSITA Attending Unavailable AICHHOLZ, LOCAL COMPANY TANKER DRIVER ROSITA Admitting Unavailable AICHHOLZ, LOCAL COMPANY TANKER DRIVER ROSITA Consulting Unavailable AICHHOLZ, LOC[employer] TANKER DRIVER ROSITA Primary Care Unavailable AICHHOLZ, LOC[employer] TANKER DRIVER ROSITA Attending Unavailable AICHHOLZ, LOCAL COMPANY TANKER DRIVER ROSITA Admitting Unavailable DR BIRGIT HAMILTON V Consulting Unavailable AICHHOLZ, LOCAL COMPANY TANKER DRIVER ROSITA Primary Care Unavailable AICHHOLZ, LOCAL COMPANY TANKER DRIVER ROSITA Attending Unavailable AICHHOLZ, LOCAL COMPANY TANKER DRIVER ROSITA Admitting Unavailable AICHHOLZ, LOCAL COMPANY TANKER DRIVER ROSITA Consulting Unavailable NILL, DR JAVED Consulting Unavailable AICHHOLZ, LOC[employer] TANKER DRIVER ROSITA Primary Care Unavailable NILL, DR JAVED Attending Unavailable NILL, DR JAVED Admitting Unavailable SUAD DURAN Consulting Unavailable CIELO THOMAS Unavailable AICHHOLZ, LOC[employer] TANKER DRIVER ROSITA Consulting Unavailable AICHHOLZ, LOCAL [employer] TANKER DRIVER ROSITA Primary Care Unavailable AICHHOLZ, LOCAL COMPANY TANKER DRIVER ROSITA Attending Unavailable AICHHOLZ, LOC[employer] TANKER DRIVER ROSITA Admitting Unavailable SARA, DR CARMEL Bee Consulting Unavailable CIELO CERVANTES Consulting Unavailable JR, DR POWER Primary Care Unavailable CIELO CERVANTES Attending Unavailable CIELO CERVANTES Admitting Unavailable WEST, DR BIRGIT Aaron Consulting Unavailable AICHHOLZ, LOCAL COMPANY TANKER DRIVER ROSITA Primary Care Unavailable AICHHOLZ, LOC[employer] COMPANY TANKER DRIVER ROSITA Attending Unavailable AICHHOLZ, LOCAL COMPANY TANKER DRIVER ROSITA Admitting Unavailable AICHHOLZ, LOCAL COMPANY TANKER DRIVER ROSITA Consulting Unavailable AICHHOLZ, LOCAL COMPANY TANKER DRIVER ROSITA Consulting Unavailable AICHHOLZ, LOCAL COMPANY TANKER DRIVER ROSITA Primary Care Unavailable AICHHOLZ, LOCAL COMPANY TANKER DRIVER ROSITA Attending Unavailable AICHHOLZ, LOCAL COMPANY TANKER DRIVER ROSITA Admitting Unavailable ZIEBJAVIER, DR CARMEL Bee Consulting Unavailable JOY, DR BIRGIT Aaron Consulting Unavailable AICHHOLZ, LOCAL COMPANY TANKER DRIVER ROSITA Primary Care Unavailable AICHHOLZ, LOCAL COMPANY TANKER DRIVER ROSITA Attending Unavailable AICHHOLZ, LOCAL COMPANY TANKER DRIVER ROSITA Admitting Unavailable AICHHOLZ, LOCAL COMPANY TANKER DRIVER ROSITA Consulting Unavailable Tello CARMONA Attending Unavailable AICHHOLZ, ROSITA ROSITA Emmie Referring UnavailTello Barron Attending Unavailable Tello CARMONA Attending Unavailable Tello CARMONA Attending Unavailable CYNTHIA DAY Attending Unavailable Allergies Allergy Classification Reported Allergen(s) Allergy Type Date of Onset Reaction(s) Facility (1 source) No Known Medication Allergies; Translations: [No Known Medication Allergies] Propensity to adverse reactions (disorder) [facility] Repository Medications Current Medications Medication Drug Class(es) [...] Primary malignant neoplasm of prostate: Father. Normal [facility] Comment on above: Result Comment: Elec tronically [...] Spondylolisthesis of lumbar region Thyroid nodule Normal [facility] Reminderson 03-31-2022 Reminders - From: Yolette Cordero LPN To: N - Clinical; Sent: 03/31/2022 15:07:34 EDT Show up: 02/09/2032 07:00:00 EDT Subject: colonoscopy recall Due Date/Time: 03/10/2032 07:00:00 EDT Reminder/Recall Patient is due for screening colonoscopy 03/10/2032. Normal [facility] Outside Colonoscopyon 2021 Outside Colonoscopy [id number]#1.00CD:127 Normal [facility] Pathology Noteon 03-12-2022 Pathology Note [id number]#1.00CD:127 Normal [facility] Consultation Noteon 03-10-20 Consultation Note [id number]#1.00CD:127 [facility] Lab Reportson 03-08-2022 Lab Reports [id number]#1.00CD:127 [facility] Covid-19 PCR (CVDTB)on SARS-CoV-2 (COVID-19) RNA ROBBIN+probe Ql (Unsp spec) Not detected Normal NOT DETECTED [facility] Comment on above: Result Comment: This test is not yet approved or cleared by the [place] FDA. When there are no FDA-approved or cleared tests available, and other criteria are met, FDA can make tests available under an emergency access mechanism called an Emergency Use Authorization (EUA). The EUA for this test is supported by the Channel Marketing Coordinator of Health and Human Service's (HHS's) declaration [...] consistent with SARS-CoV-2. Performed By: #### C [facility] #### [facility] [address] [place] [address] Dr. Darius Zepeda Physician Orderon 02-17-2022 Physician Order [id number]#1.00CD:127 Normal [facility] Ambulatory Visit Summaryon 0 02-16-2022 Ambulatory Visit [...] Spondylolisthesis of lumbar region Thyroid nodule Normal [facility] US THYROID FN ASP BXon 02-12 US THYROID FN ASP BX Begin Addendum #1 COLLECTED DATE/TIME: 02/02/2022 12:58 EDT Final Diagnosis Report for [facility] [place] [place] (A/B) LEFT THYROID SUPERIOR NODULE, ULTRASOUND-GUIDED [...] (FNA). 2. Pathology results are pending. Normal [facility] CNOVSPon 02-03-2022 CNOVSP Visit (SP) Office (H EMA) RIANA GARCIA ([id number]) 1945 F Date Time Provider Department 02/03/22 2:45 PM JOEY KRUGER During your visit today, we recorded the following information about you: Temperature Pulse Respiration Blood pressure 97.9 degrees 75/minute 16/minute 159/81 Weight Height 81.1 kg 1.64 m Joey Kruger MD 02/07/2022 12:04 AM Signed NAME: Riana Garcia CLINIC NO.: [id number] DATE OF SERVICE: February 03, 2022 Some [...] with but also will need records from [facility] with respect to both pathology and [...] TURN ST (more content not included)... Normal [facility] B2 MICROGLOBULIN Bon 022 Urlh-8-Nrjztofzeih in [Mass/Vol] 2.9 ug/mL <3.1 mg/L [facility] B2 Microglob SerPl-mCncon Lyon-6-Xtchldwanmk in [Mass/Vol] 2.9 ug/mL Normal <3.1 [facility] Comment on above: Order Comment: Speci men Type: BLOOD SPECIMEN Ordering Facility: [facility] Address: [address] [place] [address] Result Comment: Beta -2 Microglobulin test is performed using the [employer] immunoturbidimetric method. Results obtained with different methods or kits cannot be used interchangeably. Performed By: #### 3 084-1, 35544-6, 2532-0, 2777-1 #### [facility] CLIA [id number] [address] [place], [place] [address] CBC W Auto Differential pane l (Bld)on 01-25-2022 Basophils (Bld) [#/Vol] 0.04 10*3/uL Normal <0.11 [facility] Comment on above: Order Comment: Speci alan Type: BLOOD SPECIMEN Ordering Facility: [facility] Address: [address] [place] [address] Performed By: #### 5 7021-8 #### [facility] CLIA [id number] [address] [place] [address] 39584 Basophils/100 WBC (Bld) 0.5 % Normal [facility] Comment on above: Order Comment: Speci alan Type: BLOOD SPECIMEN Ordering Facility: [facility] Address: [address] [place] [address] Performed By: #### 5 7021-8 #### [facility] CLIA [id number] [address] [place] [address] 59527 Differential cell count method Nom (Bld) Auto Normal [facility] Comment on above: Order Comment: Speci men Type: BLOOD SPECIMEN Ordering Facility: [facility] Address: [address] [address] Performed By: #### 5 7021-8 #### [facility] CLIA [id number] [address] [place] [address] 05220 Eosinophils (Bld) [#/Vol] 0.16 10*3/uL Normal <0.46 [facility] Comment on above: Order Comment: Speci men Type: BLOOD SPECIMEN Ordering Facility: [facility] Address: [address] [place] [address] Performed By: #### 5 7021-8 #### [facility] CLIA [id number] [address] [place] [address] 75706 Eosinophils/100 WBC (Bld) 1.9 % Normal [facility] Comment on above: Order Comment: Speci men Type: BLOOD SPECIMEN Ordering Facility: [facility] Address: [address] [place] [address] Performed By: #### 5 7021-8 #### [facility] CLIA [id number] [address] [place] [address] 28248 Erythrocyte distribution width (RBC) [Ratio] 13.8 % Normal 11.5-15.0 [facility] Comment on above: Order Comment: Speci men Type: BLOOD SPECIMEN Ordering Facility: [facility] Address: [address] [place] [address] Performed By: #### 5 7021-8 #### [facility] CLIA [id number] [address] [place] [address] 87558 Hematocrit (Bld) [Volume fraction] 36.7 % Normal 36.0-46.0 [facility] Comment on above: Order Comment: Speci men Type: BLOOD SPECIMEN Ordering Facility: [facility] Address: [address] [place] [address] Performed By: #### 5 7021-8 #### [facility] CLIA [id number] [address] [place] [address] 11538 Hemoglobin (Bld) [Mass/Vol] 11.5 g/dL Normal 11.5-15.5 [facility] Comment on above: Order Comment: Speci men Type: BLOOD SPECIMEN Ordering Facility: [facility] Address: [address] [place] [address] Performed By: #### 5 7021-8 #### [facility] CLIA [id number] [address] [place] [address] 57586 IMMATURE GRAN % 0.4 % Normal [facility] Comment on above: Order Comment: Speci men Type: BLOOD SPECIMEN Ordering Facility: [facility] Address: [address] [place] [address] Performed By: #### 5 7021-8 #### [facility] CLIA [id number] [address] [place] [address] 87189 IMMATURE GRAN ABS 0.03 k/uL Normal <0.10 [facility] Comment on above: Order Comment: Speci men Type: BLOOD SPECIMEN Ordering Facility: [facility] Address: [address] [place] [address] Performed By: #### 5 7021-8 #### [facility] CLIA [id number] [address] [place] [address] 57870 Lymphocytes (Bld) [#/Vol] 2.10 10*3/uL Normal 1.00-4.00 [facility] Comment on above: Order Comment: Speci men Type: BLOOD SPECIMEN Ordering Facility: [facility] Address: [address] [place] [address] Performed By: #### 5 7021-8 #### [facility] CLIA [id number] [address] [place] [address] 94328 Lymphocytes/100 WBC (Bld) 24.9 % Normal [facility] Comment on above: Order Comment: Speci men Type: BLOOD SPECIMEN Ordering Facility: [facility] Address: [address] [place] [address] Performed By: #### 5 7021-8 #### [facility] CLIA [id number] [address] [place] [address] 08631 MCH (RBC) [Entitic mass] 25.9 pg Low 26.0-34.0 [facility] Comment on above: Order Comment: Speci men Type: BLOOD SPECIMEN Ordering Facility: [facility] Address: [address] [place] [address] Performed By: #### 5 7021-8 #### [facility] CLIA [id number] [address] [place] [address] 38069 MCHC (RBC) [Mass/Vol] 31.3 g/dL Normal 30.5-36.0 [facility] Comment on above: Order Comment: Speci men Type: BLOOD SPECIMEN Ordering Facility: [facility] Address: [address] [place] [address] Performed By: #### 5 7021-8 #### [facility] CLIA [id number] [address] [place] [address] 84883 MCV (RBC) [Entitic vol] 82.7 fL Normal 80.0-100.0 [facility] Comment on above: Order Comment: Speci men Type: BLOOD SPECIMEN Ordering Facility: [facility] Address: [address] [place] [address] Performed By: #### 5 7021-8 #### [facility] CLIA [id number] [address] [place] [address] 48166 Monocytes (Bld) [#/Vol] 0.84 10*3/uL Normal <0.87 [facility] Comment on above: Order Comment: Speci men Type: BLOOD SPECIMEN Ordering Facility: [facility] Address: [address] [place] [address] Performed By: #### 5 7021-8 #### [facility] CLIA [id number] [address] [place] [address] 36191 Monocytes/100 WBC (Bld) 10.0 % Normal [facility] Comment on above: Order Comment: Speci men Type: BLOOD SPECIMEN Ordering Facility: [facility] Address: [address] Performed By: #### 5 7021-8 #### [facility] CLIA [id number] [address] [place] [address] 05135 Neutrophils (Bld) [#/Vol] 5.26 10*3/uL Normal 1.45-7.50 [facility] Comment on above: Order Comment: Speci men Type: BLOOD SPECIMEN Ordering Facility: [facility] Address: [address] [place], [place] [address] Performed By: #### 5 7021-8 #### [facility] CLIA [id number] [address] [place] [address] 53766 Neutrophils/100 WBC (Bld) 62.3 % Normal [facility] Comment on above: Order Comment: Speci men Type: BLOOD SPECIMEN Ordering Facility: [facility] Address: [address] [place], [place] [address] Performed By: #### 5 7021-8 #### [facility] CLIA [id number] [address] [place] [address] 43037 Nucleated RBC (Bld) [#/Vol] 10*3/uL Normal <0.01 [facility] Comment on above: Order Comment: Speci men Type: BLOOD SPECIMEN Ordering Facility: [facility] Address: [address] [place], [place] [address] Performed By: #### 5 7021-8 #### [facility] CLIA [id number] [address] [place] [address] 04765 Nucleated RBC/100 WBC (Bld) [Ratio] 0.0 /100 WBC Normal [facility] Comment on above: Order Comment: Speci men Type: BLOOD SPECIMEN Ordering Facility: [facility] Address: [address] [place], [place] [address] Performed By: #### 5 7021-8 #### [facility] CLIA [id number] [address] [place] [address] 29033 Platelet mean volume (Bld) [Entitic vol] 9.2 fL Normal 9.0-12.7 [facility] Comment on above: Order Comment: Speci men Type: BLOOD SPECIMEN Ordering Facility: [facility] Address: [address] [place] [address] Performed By: #### 5 7021-8 #### [facility] CLIA [id number] [address] [place] [address] 48412 Platelets (Bld) [#/Vol] 199 10*3/uL Normal 150-400 [facility] Comment on above: Order Comment: Speci men Type: BLOOD SPECIMEN Ordering Facility: [facility] Address: [address] [place] [address] Performed By: #### 5 7021-8 #### [facility] CLIA [id number] [address] [place] [address] 61464 RBC (Bld) [#/Vol] 4.44 10*6/uL Normal 3.90-5.20 [facility] Comment on above: Order Comment: Speci men Type: BLOOD SPECIMEN Ordering Facility: [facility] Address: [address] [place] [address] Performed By: #### 5 7021-8 #### [facility] CLIA [id number] [address] [place] [address] 77697 WBC (Bld) [#/Vol] 8.43 10*3/uL Normal 3.70-11.00 [facility] Comment on above: Order Comment: Speci men Type: BLOOD SPECIMEN Ordering Facility: [facility] Address: [address] [place] [address] Performed By: #### 5 7021-8 #### [facility] CLIA [id number] [address] [place] [address] 95933 Abs Immature Gran 0.03 k/uL <0.10 k/uL [facility] Basophils (Bld) [#/Vol] 0.04 10*3/uL <0.11 k/uL [facility] Basophils/100 WBC (Bld) 0.5 % [facility] Differential cell count method Nom (Bld) Auto [facility] Eosinophils (Bld) [#/Vol] 0.16 10*3/uL <0.46 k/uL [facility] Eosinophils/100 WBC (Bld) 1.9 % [facility] Erythrocyte distribution width (RBC) [Ratio] 13.8 % 11.5 - 15.0 % [facility] Hematocrit (Bld) [Volume fraction] 36.7 % 36.0 - 46.0 % [facility] Hemoglobin (Bld) [Mass/Vol] 11.5 g/dL 11.5 - 15.5 g/dL [facility] Immature Gran % 0.4 % [facility] Lymphocytes (Bld) [#/Vol] 2.10 10*3/uL 1.00 - 4.00 k/uL [facility] Lymphocytes/100 WBC (Bld) 24.9 % [facility] MCH (RBC) [Entitic mass] 25.9 pg Low 26.0 - 34.0 pg [facility] MCHC (RBC) [Mass/Vol] 31.3 g/dL 30.5 - 36.0 g/dL [facility] MCV (RBC) [Entitic vol] 82.7 fL 80.0 - 100.0 fL [facility] Monocytes (Bld) [#/Vol] 0.84 10*3/uL <0.87 k/uL [facility] Monocytes/100 WBC (Bld) 10.0 % [facility] Neutrophils (Bld) [#/Vol] 5.26 10*3/uL 1.45 - 7.50 k/uL [facility] Neutrophils/100 WBC (Bld) 62.3 % [facility] Nucleated RBC (Bld) [#/Vol] <0.01 k/uL [facility] Nucleated RBC/100 WBC (Bld) [Ratio] 0.0 /100 WBC [facility] Platelet mean volume (Bld) [Entitic vol] 9.2 fL 9.0 - 12.7 fL [facility] Platelets (Bld) [#/Vol] 199 10*3/uL 150 - 400 k/uL [facility] RBC (Bld) [#/Vol] 4.44 10*6/uL 3.90 - 5.2 0 m/uL [facility] WBC (Bld) [#/Vol] 8.43 10*3/uL 3.70 - 11. 00 k/uL [facility] CNOVSPon 01-25-2022 CNOVSP Visit (SP) Office ([facility]) RIANA GARCIA ([id number]) 1945 F Date Time Provider Department 01/25/22 3:00 PM JOEY KRUGER During your visit today, we recorded the following information about you: Temperature Pulse Respiration Blood pressure 97.1 degrees 76/minute 16/minute 152/79 Weight Height 81.2 kg 1.64 m Rajni Singh MA 01/25/2022 3:14 PM Signed Patient had a Covid booster Tuesday and her Left arm (at injections site) is red with a creek around it, she wonders if it is an allergic reaction? LINDSEY Cartwright MD 02/01/2022 8:13 PM Signed NAME: Riana Garcia NO.: [id number] DATE OF SERVICE: January 25, 2022 Referring [...] with but also will need records from [facility] with respect to both pathology and surgery. She is also scheduled to have a thyroid nodule biopsied. 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 PLAN: 1. Need path and surgery records from colon cancer prior to 2006 - [facility] 2. Labs drawn today 3. RTC in [...] mg tabl (more content not included)... Normal [facility] Calcium.ionized [Moles/Vol]o n 01-25-2022 Calcium.ionized (Bld) [Mass/Vol] 1.22 mmol/L 1.08 - 1.30 mmol/L [facility] Calcium.ionized adjusted to pH 7.4 (Bld) [Moles/Vol] 1.22 mmol/L 1.08 - 1.30 mmol/L [facility] Calcium.ionized (Bld) [Mass/Vol] 1.22 mmol/L Normal 1.08-1.30 [facility] Comment on above: Order Comment: Speci men Type: BLOOD SPECIMEN Ordering Facility: [facility] Address: [address] [place] [address] Performed By: #### 3 084-1, 51683-7, 2532-0, 2777-1 #### [facility] CLIA [id number] [address] [place] [address] Calcium.ionized adjusted to pH 7.4 (Bld) [Moles/Vol] 1.22 mmol/L Normal 1.08-1.30 [facility] Comment on above: Order Comment: Speci men Type: BLOOD SPECIMEN Ordering Facility: [facility] Address: [address] [place] [address] Performed By: #### 3 084-1, 00047-8, 2532-0, 2777-1 #### [facility] CLIA [id number] [address] [place] [address] Comprehensive metabolic 2000 panelon 01-25-2022 Albumin [Mass/Vol] 4.1 g/dL Normal 3.9-4.9 [facility] Comment on above: Order Comment: Speci men Type: BLOOD SPECIMEN Ordering Facility: [facility] Address: [address] [place] [address] Performed By: #### 3 084-1, 54265-5, 2532-0, 2777-1 #### [facility] CLIA [id number] [address] [place] [address] 56093 ALP [Catalytic activity/Vol] 93 U/L Normal 34-123 [facility] Comment on above: Order Comment: Speci men Type: BLOOD SPECIMEN Ordering Facility: [facility] Address: [address] [place] [address] Performed By: #### 3 084-1, 83461-9, 2532-0, 2777-1 #### [facility] CLIA [id number] [address] [place] [address] 62331 ALT [Catalytic activity/Vol] 11 U/L Normal 7-38 [facility] Comment on above: Order Comment: Speci men Type: BLOOD SPECIMEN Ordering Facility: [facility] Address: [address] [place] [address] Performed By: #### 3 084-1, 58562-4, 2532-0, 2777-1 #### [facility] CLIA [id number] [address] [place] [address] 56250 Anion gap [Moles/Vol] 9 mmol/L Normal 9-18 [facility] Comment on above: Order Comment: Speci men Type: BLOOD SPECIMEN Ordering Facility: [facility] Address: [address] [place] [address] Performed By: #### 3 084-1, 44264-1, 2532-0, 2777-1 #### [facility] CLIA [id number] [address] [place] [address] 18095 AST [Catalytic activity/Vol] 14 U/L Normal 13-35 [facility] Comment on above: Order Comment: Speci men Type: BLOOD SPECIMEN Ordering Facility: [facility] Address: [address] [place] [address] Performed By: #### 3 084-1, 92654-0, 2532-0, 2777-1 #### [facility] CLIA [id number] [address] [place] [address] 75925 Bilirubin [Mass/Vol] 0.2 mg/dL Normal 0.2-1.3 [facility] Comment on above: Order Comment: Speci men Type: BLOOD SPECIMEN Ordering Facility: [facility] Address: [address] [place] [address] Performed By: #### 3 084-1, 99558-1, 2531-0, 2776- #### [facility] CLIA [id number] [address] [place] [address] 16811 Calcium [Mass/Vol] 9.5 mg/dL Normal 8.5-10.2 [facility] Comment on above: Order Comment: Speci men Type: BLOOD SPECIMEN Ordering Facility: [facility] Address: [address] [place] [address] Performed By: #### 3 084-1, 82550-4, 2531-0, 2776-06 #### [facility] CLIA [id number] [address] [place] [address] 54326 Chloride [Moles/Vol] 104 mmol/L Normal 97-105 [facility] Comment on above: Order Comment: Speci men Type: BLOOD SPECIMEN Ordering Facility: [facility] Address: [address] [place] [address] Performed By: #### 3 084-1, 65378-6, 2531-0, 2776-06 #### [facility] CLIA [id number] [address] [place] [address] 69192 CO2 [Moles/Vol] 28 mmol/L Normal 22-30 [facility] Comment on above: Order Comment: Speci men Type: BLOOD SPECIMEN Ordering Facility: [facility] Address: [address] [place], [place] [address] Performed By: #### 3 084-1, 59032-1, 2531-0, 2776-06 #### [facility] CLIA [id number] [address] [place] [address] 49208 Creatinine [Mass/Vol] 0.89 mg/dL Normal 0.58-0.96 [facility] Comment on above: Order Comment: Speci men Type: BLOOD SPECIMEN Ordering Facility: [facility] Address: [address] [place] [address] Performed By: #### 3 084-1, 94160-5, 2532-0, 2777-1 #### [facility] CLIA [id number] [address] [place] [address]96[address] ESTIMATED GLOMERULAR FILTRATION RATE 68 mL/min/1.73m??? Normal >=60 [facility] Comment on above: Order Comment: Ludy phillips Type: BLOOD SPECIMEN Ordering Facility: [facility] Address: [address] [place] [phone] Result Comment: Ev mated Glomerular Filtration Rate [...] actual GFR. Performed By: #### 3 084-1, 48752-7, 2532-0, 2777-1 #### [facility] CLIA [id number] [address] [place] [address] 65586 Glucose [Mass/Vol] 97 mg/dL Normal 74-99 [facility] Comment on above: Order Comment: Ludy phillips Type: BLOOD SPECIMEN Ordering Facility: [facility] Address: [address] [place] [phone] Result Comment: The [place] Diabetes Association (ADA) provides guidance for cutoff [...] Standards of Medical Care in Diabetes 2016, [place] Diabetes Association. Diabetes Care. 2016.39(Suppl 1). Performed By: #### 3 084-1, 62732-4, 2532-0, 2776-1 #### [facility] CLIA [id number] [address] [place] [address] 87677 Potassium [Moles/Vol] 4.1 mmol/L Normal 3.7-5.1 [facility] Comment on above: Order Comment: Speci men Type: BLOOD SPECIMEN Ordering Facility: [facility] Address: [address] [place] [address] Performed By: #### 3 084-1, 60959-1, 2532-0, 2776-1 #### [facility] CLIA [id number] [address] [place] [address]855 Protein [Mass/Vol] 6.8 g/dL Normal 6.3-8.0 [facility] Comment on above: Order Comment: Speci men Type: BLOOD SPECIMEN Ordering Facility: [facility] Address: [address] [place] [address] Performed By: #### 3 084-1, 99267-7, 2532-0, 2776- #### [facility] CLIA [id number] [address] [place] [address] 09166 Sodium [Moles/Vol] 141 mmol/L Normal 136-144 [facility] Comment on above: Order Comment: Speci men Type: BLOOD SPECIMEN Ordering Facility: [facility] Address: [address] [place] [address] Performed By: #### 3 084-1, 07737-5, 2532-0, 2776-1 #### [facility] CLIA [id number] [address] [place] [address] 11478 Urea nitrogen [Mass/Vol] 27 mg/dL High 7-21 [facility] Comment on above: Order Comment: Speci men Type: BLOOD SPECIMEN Ordering Facility: [facility] Address: [address] [place] [address] Performed By: #### 3 084-1, 69300-5, 2532-0, 2777-1 #### [facility] CLIA [id number] [address] [place] [address] 16195 Albumin [Mass/Vol] 4.1 g/dL 3.9 - 4.9 g/dL [facility] ALP [Catalytic activity/Vol] 93 U/L 34 - 123 [facility] ALT [Catalytic activity/Vol] 11 U/L 7 - 38 [facility] Anion gap [Moles/Vol] 9 mmol/L 9 - 18 mmol/L [facility] AST [Catalytic activity/Vol] 14 U/L 13 - 35 U/L [facility] Bilirubin [Mass/Vol] 0.2 mg/dL 0.2 - 1.3 mg/dL [facility] Calcium [Mass/Vol] 9.5 mg/dL 8.5 - 10. 2 mg/dL [facility] Chloride [Moles/Vol] 104 mmol/L 97 - 105 mmol/L [facility] CO2 [Moles/Vol] 28 mmol/L 22 - 30 mmol/L [facility] Creatinine [Mass/Vol] 0.89 mg/dL 0.58 - 0.96 mg/dL [facility] Estimated Glomerular Filtration Rate 68 mL/min/1.73m >=60 mL/min/1.73m [facility] Glucose [Mass/Vol] 97 mg/dL 74 - 99 mg/dL [facility] Potassium [Moles/Vol] 4.1 mmol/L 3.7 - 5.1 mmol/L [facility] Protein [Mass/Vol] 6.8 g/dL 6.3 - 8.0 g/dL [facility] Sodium [Moles/Vol] 141 mmol/L 136 - 144 mmol/L [facility] Urea nitrogen [Mass/Vol] 27 mg/dL High 7 - 21 mg/dL [facility] IMMUNOFIXATION SCREEN, SERUM on 01-25-2022 INTERPRETATION (MPA) Atypical restricted bands are present in the IgM and kappa regions. Consistent with IgM kappa monoclonal gammopathy. Normal [facility] Comment on above: Order Comment: Speci men Type: BLOOD SPECIMEN Ordering Facility: [facility] Address: [address] [place] [phone] Performed By: #### I FESC #### [facility] CLIA [id number] [address] [place] [address] STATES [facility] MPA RESULT M protein is present. Abnormal No M p rotein is identified. [facility] Comment on above: Order Comment: Speci men Type: BLOOD SPECIMEN Ordering Facility: [facility] Address: [address] [place] [address] Performed By: #### I FESC #### [facility] CLIA [id number] [address] [place] [address] STAFF REVIEW (MPA) Reviewed by María hardy MD [facility] Comment on above: Order Comment: Speci men Type: BLOOD SPECIMEN Ordering Facility: [facility] Address: [address] [place] [address] Performed By: #### I FES #### [facility] CLIA [id number] [address] [place] [address] [place] IMMUNOGLOBULINS GAMon 2021 IgA [Mass/Vol] 153 mg/dL Normal 70-400 [facility] Comment on above: Order Comment: Speci men Type: BLOOD SPECIMEN Ordering Facility: [facility] Address: [address] [place] [address] Performed By: #### S ERIMM #### [facility] CLIA [id number] [address] [place] [address] [place] IgG [Mass/Vol] 1211 mg/dL Normal 700-1600 [facility] Comment on above: Order Comment: Speci men Type: BLOOD SPECIMEN Ordering Facility: [facility] Address: [address] [place], [place] [address] Performed By: #### S ERIMM #### [facility] CLIA [id number] [address] [place] [address] [place] IgM [Mass/Vol] 357 mg/dL High 40-230 [facility] Comment on above: Order Comment: Speci men Type: BLOOD SPECIMEN Ordering Facility: [facility] Address: [address] [place] [address] Performed By: #### S ERIMM #### [facility] CLIA [id number] [address] [place] [address] [place] KAPPA/LEONARD,FREE,SERon 2021 Immunoglobulin light chains.kappa.free (S) [Mass/Vol] 132.0 mg/L High 3.3-19.4 [facility] Comment on above: Order Comment: Speci men Type: BLOOD SPECIMEN Ordering Facility: [facility] Address: [address] [place] [address] Performed By: #### K LFRS #### [facility] CLIA [id number] [address] [place] [address] [place] Immunoglobulin light chains.kappa/Immun oglobulin light chains.lambda (S) [Mass ratio] 7.95 High 0.26-1.65 [facility] Comment on above: Order Comment: Speci men Type: BLOOD SPECIMEN Ordering Facility: [facility] Address: [address] [place] [address] Performed By: #### K LFRS #### [facility] CLIA [id number] [address] [place] [address] [place] Immunoglobulin light chains.lambda.free [Mass/Vol] 16.6 mg/L Normal 5.7-26.3 [facility] Comment on above: Order Comment: Speci men Type: BLOOD SPECIMEN Ordering Facility: [facility] Address: [address] [place], [place] [address] Performed By: #### K LFRS #### [facility] CLIA [id number] [address] [place] [address] [place] LD LACTATE DEHYDROon 022 LDH [Catalytic activity/Vol] 179 U/L 135 - 214 U/L [facility] LDH SerPl-cCncon 01-25-2022 LDH [Catalytic activity/Vol] 179 U/L Normal 135-214 [facility] Comment on above: Order Comment: Ludy phillips Type: BLOOD SPECIMEN Ordering Facility: [facility] Address: [address] [place] [address] Result Comment: Hemo lysis present. The origin [...] clinically indicated. Performed By: #### 3 084-1, 37848-4, 2532-0, 2777-1 #### [facility] CLIA [id number] [address] [place] [address]116 PHOSPHORUS INORGANICon 01-25 Phosphate [Mass/Vol] 3.9 mg/dL 2.7 - 4.8 mg/dL [facility] PROTEIN ELECTROPHORESIS SERU M (P)on 01-25-2022 Albumin [Mass/Vol] 3.61 g/dL Normal 3.37-4.23 [facility] Comment on above: Order Comment: Ludy phillips Type: BLOOD SPECIMEN Ordering Facility: [facility] Address: [address] [place] [address] Performed By: #### L [id number] #### [facility] CLIA [id number] [address] [place] [address] [place] Alpha 1 globulin Elph [Mass/Vol] 0.24 g/dL Normal 0.18-0.31 [facility] Comment on above: Order Comment: Ludy phillips Type: BLOOD SPECIMEN Ordering Facility: [facility] Address: [address] [place], [place] [address] Performed By: #### L [id number] #### [facility] CLIA [id number] [address] [place] [address] [place] Alpha 2 globulin Elph [Mass/Vol] 0.66 g/dL Normal 0.52-0.97 [facility] Comment on above: Order Comment: Speci men Type: BLOOD SPECIMEN Ordering Facility: [facility] Address: [address] [place] [address] Performed By: #### L [id number] #### [facility] CLIA [id number] [address] [place] [address] [place] Beta globulin Elph [Mass/Vol] 0.84 g/dL Normal 0.84-1.36 [facility] Comment on above: Order Comment: Speci men Type: BLOOD SPECIMEN Ordering Facility: [facility] Address: [address] [place] [address] Performed By: #### L [id number] #### [facility] CLIA [id number] [address] [place] [address] [place] Gamma globulin Elph (Body fld) [Mass fraction] 1.34 g/dL Normal 0.70-1.44 [facility] Comment on above: Order Comment: Speci men Type: BLOOD SPECIMEN Ordering Facility: [facility] Address: [address] [place] [address] Performed By: #### L [id number] #### [facility] CLIA [id number] [address] [place] [address] [place] INTERPRETATION COMMENT FOR PROTEIN ELECTROPHORESIS Normal [facility] Comment on above: Order Comment: Speci men Type: BLOOD SPECIMEN Ordering Facility: [facility] Address: [address] [place] [address] Result Comment: See separate immunofixation report for characterization of monoclonal gammopathy. M protein is present on the background of a polyclonal immunoglobulin population. Quantitation of the M protein may overestimate the amount of M protein present. Performed By: #### L [id number] #### [facility] CLIA [id number] [address] [place] [address] [place] M-PROTEIN LOCATION Gamma Fraction 1 Normal [facility] Comment on above: Order Comment: Speci men Type: BLOOD SPECIMEN Ordering Facility: [facility] Address: [address] [place], [place] [address] Performed By: #### L [id number] #### [facility] CLIA [id number] [address] [place] [address] [place] Protein Fractions [Interp] An M protein is identified on protein electrophoresis. Abnormal No definitive M protein is identified on protein electrophore sis. [facility] Comment on above: Order Comment: Speci men Type: BLOOD SPECIMEN Ordering Facility: [facility] Address: [address] [place], [place] [address] Performed By: #### L [id number] #### [facility] CLIA [id number] [address] [place] [address] [place] Protein.monoclonal Elph [Mass/Vol] 0.25 g/dL High <=0.00 [facility] Comment on above: Order Comment: Speci men Type: BLOOD SPECIMEN Ordering Facility: [facility] Address: [address] [place], [place] [address] Performed By: #### L [id number] #### [facility] CLIA [id number] [address] [place] [address] [place] SPE STAFF REVIEW Reviewed by María hardy MD [facility] Comment on above: Order Comment: Speci men Type: BLOOD SPECIMEN Ordering Facility: [facility] Address: [address] [place], [place] [address] Performed By: #### L [id number] #### [facility] CLIA [id number] [address] [place] [address] [place] Phosphate SerPl-mCncon 01-25 Phosphate [Mass/Vol] 3.9 mg/dL Normal 2.7-4.8 [facility] Comment on above: Order Comment: Speci men Type: BLOOD SPECIMEN Ordering Facility: [facility] Address: [address] [place], [place] [address] Performed By: #### 3 084-1, 08438-2, 2532-0, 2777-1 #### [facility] CLIA [id number] [address] [place] [address] 41204 Prot SerPl-mCncon 01-25-2022 Protein [Mass/Vol] 6.7 g/dL Normal 6.3-8.0 [facility] Comment on above: Order Comment: Speci men Type: BLOOD SPECIMEN Ordering Facility: [facility] Address: [address] [place] [address] Performed By: #### 2 885-2, 1951-06 #### [facility] CLIA [id number] [address] [place] [address] OF [facility] URIC ACID BLOODon 01-25-2022 Urate [Mass/Vol] 5.4 mg/dL 2.5 - 6.6 mg/dL [facility] Urate [facility] Urate [Mass/Vol] 5.4 mg/dL Normal 2.5-6.6 [facility] Comment on above: Order Comment: Speci men Type: BLOOD SPECIMEN Ordering Facility: [facility] Address: [address] [place] [address] Performed By: #### 3 084-1, 48560-5, 2532-0, 2777-1 #### [facility] CLIA [id number] [address] [place], [place] [address] Physician Referralon 022 Physician Referral [phone] [id number] Normal [facility] US THYROIDon 01-11-2022 US THYROID EXAMINATION: US [...] fine-needle aspiration of both nodules. TI-RADS: The [place] [employer] TI-RADS committee's white paper recommendations for thyroid lesions classified as TR4 (moderately suspicious) are listed below: > 1.0 cm. Follow-up ultrasound in 1, 2, 3, and 5 years. > 1.5 cm. FNA. J. Am Mat Radiol 2017;14:587-595. TI-RADS: The [place] [employer] TI-RADS committee's white paper recommendations for thyroid lesions classified as TR5 (highly suspicious) are listed below: > 0.5 cm. Annual ultrasound follow-up for up to 5 years. > 1.0 cm. FNA. J. Am Mat Radiol 2017;14:587-595. Electronically authenticated by: BIRGIT HAMILTON Date: 2022-01-11 07:45 Normal [facility] Glucose Poct Glucometerson 0 12-30-2021 Glucose [Mass/Vol] 95 mg/dL Normal [facility] Comment on above: Result Comment: [place] Glucose Reference Range is dependent on time and content of last meal. Glucose of more than 200 mg/dL in a nonstressed, ambulatory subject supports the diagnosis of Diabetes Mellitus. PERFORMED BY: [address] [address] PATHOLOGIST COAT CHECKER FLOYD LOPEZ M.D. Performed By: #### G LULS #### Point of Care testing , PET tumor init tx strat sb-m ton 12-30-2021 PET tumor init tx strat sb-mt [facility] Main [place] [address] [place] [address] Nuclear Medicine Report Signed Patient: Riana Garcia MR#: [id number] : 1945 Acct:[id number] Age/Sex: 76 / F ADM Date: 12/30/21 Loc: Room: Type: [facility] Attending Dr: Rosita Schaffer Copies to: [...] Blake Hickey M.D.12/30/2021 2:30 PM Dictation Location: [place] [address] Transcribed By: SONYA 12/30/21 1430 Dictated By: Blake Hickey DO 12/30/21 1411 Signed By: 12/30/21 1430 [facility] MG MAMM RT DIAG FUon 022 MG MAMM RT DIAG FU Patient: LONNIE GARCIA Exam Date: 12/16/2021 : 1945 Gender:F Ordering : STEPHANIE ROSITA HERNESTO [facility] Admission #: [id number] Family : Order #: [id number] CLICK HERE TO VIEW EXAM RADIOLOGY REPORT [...] Treatments None Family Cancers None LOCATION: [facility] BREAST COMPOSITION: Heterogeneously dense,which may obscure [...] MD on 12/16/2021 at 15:21 Normal [facility] US BREAST RIGHT LIMITEDon US BREAST RIGHT LIMITED Patient: RIANA GARCIA Exam Date: 12/16/2021 : 1945 Gender:F Ordering : STEPHANIE ROSITATyra SCHAFFER [facility] Admission #: [id number] Family : Order #: [id number] CLICK HERE TO VIEW EXAM RADIOLOGY REPORT [...] Treatments None Family Cancers None LOCATION: [facility] BREAST COMPOSITION: Heterogeneously dense,which may obscure [...] MD on 12/16/2021 at 15:21 Normal [facility] HLA B 27on 12-11-2021 HLA-B27 Negative Normal [facility] Comment on above: Result Comment: HLA- B*27 Negative B27 allele interpretation for all loci based on IMGT/HLA database version 3.44 This test was developed and its performance characteristics determined by [facility]. It has not been cleared or approved by the Food and Drug Administration. [facility] CLIA ID Number [id number] . This test was performed using PCR (Polymerase Chain Reaction)/SSOP (Sequence Specific Oligonucleotide Probes) technique. SBT (Sequence Based Typing) and/or SSP (Sequence Specific Primers) may be used as supplemental methods when necessary. Please contact [facility] Customer Service at if you have any questions. . Director of [facility] Dr Floyd Trammell, PhD Performed By: #### H LA27 #### [facility] [address] [place] [address] Dr. Darius Zepeda MG MAMM SCREEN 3D THIERRY CADon 12-11-2021 MG MAMM SCREEN 3D THIERRY CAD Patient: RIANA GARCIA Exam Date: 12/11/2021 : 1945 Gender:F Ordering : STEPHANIE ROSITA SCHAFFER [facility] Admission #: [id number] Family : Order #: [id number] CLICK HERE TO VIEW EXAM RADIOLOGY REPORT PROCEDURE: MAMMOGRAM SCREENING 3D BILATERAL CAD COMPARISON: None. INDICATIONS: Screening mammography Calculator Name NCI Breast Cancer Risk Assessment Tool 5 Year Breast Cancer Risk 2.00% Lifetime Breast Cancer Risk 4.50% Personal Breast Cancer No Personal Ovarian Cancer No Treatments None Family Cancers None LOCATION: [facility] BREAST COMPOSITION: Heterogeneously dense,which may obscure [...] Govea M.D. on 12/11/2021 at 15:30 Normal [facility] XR CHEST 2 Von 12-11-2021 XR [...] CARMEL GOVEA Date: 2021-12-11 18:05 Normal [facility] IMMUNOFIXATION (LIAN), URINEo n 12-09-2021 LIAN Interpretation:U Comment Normal [facility] Comment on above: Result Comment: No m onoclonality detected. Performed By: #### L DH, BMP, LIVER, CRP #### [facility] [address] [place] [address] [address] Darius Zepeda GIGI by IFAon 12-08-2021 Antinuclear Antibodies, IFA Negative Normal [facility] Comment on above: Result Comment: Nega tive <1:80 Borderline 1:80 Positive >1:80 ICAP nomenclature: AC-0 For more information about Hep-2 cell patterns use ANApatterns.org, the official website for the International Consensus on Antinuclear Antibody (GIGI) Patterns (ICAP). Performed By: #### L DH, BMP, LIVER, CRP #### [facility] [address] [place] [address] [address] Darius Zepeda IMMUNOFIXATION (LIAN), SERUMo n 12-08-2021 IMMUNOFIXATION RESULT Comment Abnormal [facility] Comment on above: Result Comment: Immu nofixation shows IgM monoclonal protein with kappa light chain specificity. Performed By: #### L DH, BMP, LIVER, CRP #### [facility] [address] [place] [address] [address] Darius Zepeda Immunoglobulin A, Qn, Serum 157 mg/dL Normal 64-422 [facility] Comment on above: Performed By: #### L DH, BMP, LIVER, CRP #### [facility] [address] [place] [address] [address] Darius Zepeda Immunoglobulin G, Qn, Serum 1264 mg/dL Normal 586-1602 [facility] Comment on above: Performed By: #### L DH, BMP, LIVER, CRP #### [facility] [address] [place] [address] [address] Darius Zepeda Immunoglobulin M, Qn, Serum 364 mg/dL Critically high 26-217 [facility] Comment on above: Performed By: #### L DH, BMP, LIVER, CRP #### [facility] [address] [place] [address] Dr. Darius Zepeda CBC AUTO DIFFon 12-04-2021 BASO # 0.1 103/ul Normal 0.0-0.1 [facility] Comment on above: Performed By: #### L DH, BMP, LIVER, CRP #### [facility] [address] [place] [address] Dr. Darius Zepeda Basophils/100 WBC (Bld) 0.6 % Normal 0.2-2.0 [facility] Comment on above: Performed By: #### L DH, BMP, LIVER, CRP #### [facility] [address] [place] [address] Dr. Darius Zepeda EO # 0.1 103/ul Normal 0.0-0.7 [facility] Comment on above: Performed By: #### L DH, BMP, LIVER, CRP #### [facility] [address] [place] [address] Dr. Darius Zepeda Eosinophils/100 WBC (Bld) 1.0 % Normal 0.9-7.0 [facility] Comment on above: Performed By: #### L DH, BMP, LIVER, CRP #### [facility] [address] [place] [address] Dr. Darius Zepeda Erythrocyte distribution width (RBC) [Ratio] 14.0 % Normal 11.0-15.0 [facility] Comment on above: Performed By: #### L DH, BMP, LIVER, CRP #### [facility] [address] [place] [address] Dr. Darius Zepeda Hematocrit (Bld) [Volume fraction] 35.8 % Critically low 36.0-48.0 [facility] Comment on above: Performed By: #### L DH, BMP, LIVER, CRP #### [facility] [address] [place] [address] Dr. Darius Zepeda Hemoglobin (Bld) [Mass/Vol] 11.2 g/dL Critically low 12.0-16.0 [facility] Comment on above: Performed By: #### L DH, BMP, LIVER, CRP #### [facility] [address] [place] [address] Dr. Darius Zepeda IG # 0.02 10e3/ul Normal 0.00-0.03 [facility] Comment on above: Performed By: #### L DH, BMP, LIVER, CRP #### [facility] [address] [place] [address] Dr. Darius Zepeda IG % 0.2 % Normal 0.0-0.5 [facility] Comment on above: Performed By: #### L DH, BMP, LIVER, CRP #### [facility] [address] [place] [address] Dr. Darius Zepeda LYMPH # 2.2 103/ul Normal 1.2-3.8 [facility] Comment on above: Performed By: #### L DH, BMP, LIVER, CRP #### [facility] [address] [place] [address] Dr. Darius Zepeda Lymphocytes/100 WBC (Bld) 25.1 % Normal 20.5-60.0 [facility] Comment on above: Performed By: #### L DH, BMP, LIVER, CRP #### [facility] [address] [place] [address] Dr. Darius Zepeda MANUAL DIFF REQ NO Normal [facility] Comment on above: Performed By: #### L DH, BMP, LIVER, CRP #### [facility] [address] [place] [address] Dr. Darius Zepeda MCH (RBC) [Entitic mass] 25.6 pg Critically low 26.7-34.0 [facility] Comment on above: Performed By: #### L DH, BMP, LIVER, CRP #### [facility] [address] [place] [address] Dr. Darius Zepeda MCHC (RBC) [Mass/Vol] 31.3 g/dL Normal 29.9-35.2 [facility] Comment on above: Performed By: #### L DH, BMP, LIVER, CRP #### [facility] [address] [place] [address] Dr. Darius Zepeda MCV (RBC) [Entitic vol] 81.7 fL Normal 81.0-99.0 [facility] Comment on above: Performed By: #### L DH, BMP, LIVER, CRP #### [facility] [address] [place] [address] Dr. Darius Zepeda MONO # 0.7 103/ul Normal 0.3-0.8 [facility] Comment on above: Performed By: #### L DH, BMP, LIVER, CRP #### [facility] [address] [place] [address] Dr. Darius Zepeda Monocytes/100 WBC (Bld) 7.7 % Normal 1.7-12.0 [facility] Comment on above: Performed By: #### L DH, BMP, LIVER, CRP #### [facility] [address] [place] [address] Dr. Darius Zepeda NEUT # 5.7 103/ul Normal 1.4-6.5 [facility] Comment on above: Performed By: #### L DH, BMP, LIVER, CRP #### [facility] [address] [place] [address] Dr. Darius Zepeda Neutrophils/100 WBC (Bld) 65.4 % Normal 43.0-75.0 [facility] Comment on above: Performed By: #### L DH, BMP, LIVER, CRP #### [facility] [address] [place] [address] Dr. Darius Zepeda Platelet mean volume (Bld) [Entitic vol] 10.2 fL Normal 9.5-13.5 [facility] Comment on above: Performed By: #### L DH, BMP, LIVER, CRP #### [facility] [address] [place] [address] Dr. Darius Zepeda PLT 220 103/ul Normal 150-450 [facility] Comment on above: Performed By: #### L DH, BMP, LIVER, CRP #### [facility] [address] [place] [address] Dr. Darius Zepeda RBC 4.38 106/ul Normal 4.20-5.40 [facility] Comment on above: Performed By: #### L DH, BMP, LIVER, CRP #### [facility] [address] [place] [address] Dr. Darius Zepeda WBC 8.7 103/ul Normal 4.0-11.0 [facility] Comment on above: Performed By: #### L DH, BMP, LIVER, CRP #### [facility] [address] [place] [address] Dr. Darius Zepeda CRPon 12-04-2021 CRP 1.1 mg/dL Critically high <=1.0 [facility] Comment on above: Performed By: #### L DH, BMP, LIVER, CRP #### [facility] [address] [address] [address] Darius Zepeda LDHon 12-04-2021 LDH 172 U/L Normal 81-234 [facility] Comment on above: Performed By: #### L DH, BMP, LIVER, CRP #### [facility] [address] [place] [address] Dr. Darius Zepeda LIVER PROFILEon 12-04-2021 Albumin [Mass/Vol] 3.7 g/dL Normal 3.4-5.0 [facility] Comment on above: Performed By: #### L DH, BMP, LIVER, CRP #### [facility] [address] [place] [address] Dr. Darius Zepeda Albumin/Globulin [Mass ratio] 0.9 {ratio} Normal [facility] Comment on above: Performed By: #### L DH, BMP, LIVER, CRP #### [facility] [address] [place] [address] Dr. Darius Zepeda ALP [Catalytic activity/Vol] 80 U/L Normal 46-116 [facility] Comment on above: Performed By: #### L DH, BMP, LIVER, CRP #### [facility] [address] [place] [address] Dr. Darius Zepeda ALT [Catalytic activity/Vol] 22 U/L Normal 14-59 [facility] Comment on above: Performed By: #### L DH, BMP, LIVER, CRP #### [facility] [address] [place] [address] Dr. Darius Zepeda AST [Catalytic activity/Vol] 15 U/L Normal 15-37 [facility] Comment on above: Performed By: #### L DH, BMP, LIVER, CRP #### [facility] [address] [place] [address] Dr. Darius Zepeda BILI, CONJUGATED 0.1 mg/dL Normal 0.0-0.2 [facility] Comment on above: Performed By: #### L DH, BMP, LIVER, CRP #### [facility] [address] [place] [address] Dr. Darius Zepeda Bilirubin [Mass/Vol] 0.6 mg/dL Normal 0.2-1.0 [facility] Comment on above: Performed By: #### L DH, BMP, LIVER, CRP #### [facility] [address] [place] [address] Dr. Darius Zepeda Globulin (S) [Mass/Vol] 3.9 g/dL Normal [facility] Comment on above: Performed By: #### L DH, BMP, LIVER, CRP #### [facility] [address] [place] [address] Dr. Darius Zepeda Protein [Mass/Vol] 7.6 g/dL Normal 6.4-8.2 [facility] Comment on above: Performed By: #### L DH, BMP, LIVER, CRP #### [facility] [address] [place] [address] Dr. Darius Zepeda PROF CHEM 8 (BAS METB)on Anion gap [Moles/Vol] 12.8 mmol/L Normal [facility] Comment on above: Performed By: #### L DH, BMP, LIVER, CRP #### [facility] [address] [place] [address] Dr. Darius Zepeda Calcium [Mass/Vol] 8.7 mg/dL Normal 8.5-10.1 [facility] Comment on above: Performed By: #### L DH, BMP, LIVER, CRP #### [facility] [address] [place] [address] Dr. Darius Zepeda Chloride [Moles/Vol] 105 mmol/L Normal 98-107 [facility] Comment on above: Performed By: #### L DH, BMP, LIVER, CRP #### [facility] [address] [address] [address] Darius Zepeda CO2 [Moles/Vol] 27.1 mmol/L Normal 21.0-32.0 [facility] Comment on above: Performed By: #### L DH, BMP, LIVER, CRP #### [facility] [address] [address] [address] Darius Zepeda Creatinine [Mass/Vol] 1.01 mg/dL Normal 0.55-1.02 [facility] Comment on above: Performed By: #### L DH, BMP, LIVER, CRP #### [facility] [address] [address] [address] Darius Zepeda EGFR-AF BURKINAN >60 Normal >=60 [facility] Comment on above: Performed By: #### L DH, BMP, LIVER, CRP #### [facility] [address] [place] [address] Dr. Darius Zepeda EGFR-NON AF BURKINAN 54 mL/min/1.73m2 Critically low >=60 [facility] Comment on above: Performed By: #### L DH, BMP, LIVER, CRP #### [facility] [address] [address] [address] Darius Zepeda Glucose [Mass/Vol] 96 mg/dL Normal 74-106 [facility] Comment on above: Performed By: #### L DH, BMP, LIVER, CRP #### [facility] [address] [address] [address] Darius Zepeda Potassium [Moles/Vol] 3.9 mmol/L Normal 3.5-5.1 [facility] Comment on above: Performed By: #### L DH, BMP, LIVER, CRP #### [facility] [address] [address] [address] Darius Zepeda Sodium [Moles/Vol] 141 mmol/L Normal 136-145 [facility] Comment on above: Performed By: #### L DH, BMP, LIVER, CRP #### [facility] [address] [address] [address] Darius Zepeda Urea nitrogen [Mass/Vol] 24.0 mg/dL Critically high 7.0-18.0 [facility] Comment on above: Performed By: #### L DH, BMP, LIVER, CRP #### [facility] [address] [place] [address] Dr. Darius Zepeda Urea nitrogen/Creatinin e [Mass ratio] 23.8 mg/mg Normal [facility] Comment on above: Performed By: #### L DH, BMP, LIVER, CRP #### [facility] [address] [place] [address] Dr. Darius Zepeda SED RATE WESTERGRENon 2021 SED RATE 30 mm/hr Normal <=30 [facility] Comment on above: Performed By: #### L DH, BMP, LIVER, CRP #### [facility] [address] [place] [address] Dr. Darius Zepeda UA (CLEAN/CATCH) FUR CLIPPER/MICRO I F IND.on 12-04-2021 Bilirubin Ql (U) Negative Normal NEGATIVE [facility] Comment on above: Performed By: #### L DH, BMP, LIVER, CRP #### [facility] [address] [place] [address] Dr. Darius Zepeda Clarity (U) CLEAR Normal CLEAR [facility] Comment on above: Performed By: #### L DH, BMP, LIVER, CRP #### [facility] [address] [place] [address] Dr. Darius Zepeda Color (U) YELLOW Normal YELLOW [facility] Comment on above: Performed By: #### L DH, BMP, LIVER, CRP #### [facility] [address] [place] [address] Dr. Darius Zepeda Glucose Ql (U) Negative Normal NEGATIVE [facility] Comment on above: Performed By: #### L DH, BMP, LIVER, CRP #### [facility] [address] [place] [address] Dr. Darius Zepeda Hemoglobin Ql (U) Negative Normal NEGATIVE [facility] Comment on above: Performed By: #### L DH, BMP, LIVER, CRP #### [facility] [address] [place] [address] Dr. Darius Zepeda Ketones Ql (U) Negative Normal NEGATIVE [facility] Comment on above: Performed By: #### L DH, BMP, LIVER, CRP #### [facility] [address] [address] [address] Darius Zepeda LEUKOCYTES Negative Normal NEGATIVE [facility] Comment on above: Performed By: #### L DH, BMP, LIVER, CRP #### [facility] [address] [address] [address] Darius Zepeda Nitrite Ql (U) Negative Normal NEGATIVE [facility] Comment on above: Performed By: #### L DH, BMP, LIVER, CRP #### [facility] [address] [place] [address] Dr. Darius Zepeda pH (U) 7.0 [pH] Normal 5-9 [facility] Comment on above: Performed By: #### L DH, BMP, LIVER, CRP #### [facility] [address] [place] [address] Dr. Darius Zepeda SPEC GRAVITY 1.020 Normal 1.005-<=1.02 5 [facility] Comment on above: Performed By: #### L DH, BMP, LIVER, CRP #### [facility] [address] [place] [address] Dr. Darius Zepeda UA PROTEIN Negative Normal NEGATIVE/ TRACE [facility] Comment on above: Performed By: #### L DH, BMP, LIVER, CRP #### [facility] [address] [place] [address] Dr. Darius Zepeda UR MICRO IND NOT INDICATED Normal [facility] Comment on above: Performed By: #### L DH, BMP, LIVER, CRP #### [facility] [address] [place] [address] Dr. Darius Zepeda Urobilinogen Qn (U) 0.2 {Nathalia'U}/dL Normal 0.2 - 1.0 [facility] Comment on above: Performed By: #### L DH, BMP, LIVER, CRP #### [facility] [address] [place] [address] Dr. Darius Zepeda URINE MICROSCOPIC ONLYon BACTERIA TRACE Abnormal NONE SEEN [facility] Comment on above: Performed By: #### L DH, BMP, LIVER, CRP #### [facility] [address] [place] [address] Dr. Darius Zepeda Bacteria identified Cx Nom (U) NOT INDICATED Normal [facility] Comment on above: Performed By: #### L DH, BMP, LIVER, CRP #### [facility] [address] [place] [address] Dr. Darius Zepeda CAST NONE SEEN Normal NONE SEEN [facility] Comment on above: Performed By: #### L DH, BMP, LIVER, CRP #### [facility] [address] [address] [address] Darius Zepeda Crystals LM Nom (Urine sed) NONE SEEN Normal NONE SEEN [facility] Comment on above: Performed By: #### L DH, BMP, LIVER, CRP #### [facility] [address] [place] [address] Dr. Darius Zepeda Epithelial cells LM Ql (Urine sed) MODERATE Abnormal NONE SEEN /RARE [facility] Comment on above: Performed By: #### L DH, BMP, LIVER, CRP #### [facility] [address] [place] [address] Dr. Darius Zepeda MUCOUS NONE SEEN Normal NONE SEEN [facility] Comment on above: Performed By: #### L DH, BMP, LIVER, CRP #### [facility] [address] [place] [address] Dr. Darius Zepeda RBC 0-2 Normal 0-2 [facility] Comment on above: Performed By: #### L DH, BMP, LIVER, CRP #### [facility] [address] [place] [address] Dr. Darius Zepeda WBC 2-5 Abnormal NONE SEEN [facility] Comment on above: Performed By: #### L DH, BMP, LIVER, CRP #### [facility] [address] [place] [address] Dr. Darius Zepeda MRI LSPINE W CONon [...] BIRGIT HAMILTON Date: 2021-12-02 11:44 Normal [facility] CBC AUTO DIFFon 11-11-2021 BASO # 0.0 103/ul Normal 0.0-0.1 [facility] Comment on above: Performed By: #### C BC #### [facility] [address] [place] [address] Dr. Darius Zepeda Basophils/100 WBC (Bld) 0.5 % Normal 0.2-2.0 [facility] Comment on above: Performed By: #### C BC #### [facility] [address] [place] [address] Dr. Darius Zepeda EO # 0.1 103/ul Normal 0.0-0.7 [facility] Comment on above: Performed By: #### C BC #### [facility] [address] [place] [address] Dr. Darius Zepeda Eosinophils/100 WBC (Bld) 1.2 % Normal 0.9-7.0 [facility] Comment on above: Performed By: #### C BC #### [facility] [address] [place] [address] Dr. Darius Zepeda Erythrocyte distribution width (RBC) [Ratio] 13.7 % Normal 11.0-15.0 [facility] Comment on above: Performed By: #### C BC #### [facility] [address] [place] [address] Dr. Darius Zepeda Hematocrit (Bld) [Volume fraction] 35.0 % Critically low 36.0-48.0 [facility] Comment on above: Performed By: #### C BC #### [facility] [address] [place] [address] Dr. Darius Zepeda Hemoglobin (Bld) [Mass/Vol] 11.0 g/dL Critically low 12.0-16.0 [facility] Comment on above: Performed By: #### C BC #### [facility] [address] [place] [address] Dr. Darius Zepeda IG # 0.01 10e3/ul Normal 0.00-0.03 [facility] Comment on above: Performed By: #### C BC #### [facility] [address] [place] [address] Dr. Darius Zepeda IG % 0.1 % Normal 0.0-0.5 [facility] Comment on above: Performed By: #### C BC #### [facility] [address] [place] [address] Dr. Darius Zepeda LYMPH # 2.3 103/ul Normal 1.2-3.8 [facility] Comment on above: Performed By: #### C BC #### [facility] [address] [place] [address] Dr. Darius Zepeda Lymphocytes/100 WBC (Bld) 27.5 % Normal 20.5-60.0 [facility] Comment on above: Performed By: #### C BC #### [facility] [address] [place] [address] Dr. Darius Zepeda MANUAL DIFF REQ NO Normal [facility] Comment on above: Performed By: #### C BC #### [facility] [address] [place] [address] Dr. Darius Zepeda MCH (RBC) [Entitic mass] 25.9 pg Critically low 26.7-34.0 [facility] Comment on above: Performed By: #### C BC #### [facility] [address] [place] [address] Dr. Darius Zepeda MCHC (RBC) [Mass/Vol] 31.4 g/dL Normal 29.9-35.2 [facility] Comment on above: Performed By: #### C BC #### [facility] [address] [place] [address] Dr. Darius Zepeda MCV (RBC) [Entitic vol] 82.4 fL Normal 81.0-99.0 [facility] Comment on above: Performed By: #### C BC #### [facility] [address] [place] [address] Dr. Darius Zepeda MONO # 0.8 103/ul Normal 0.3-0.8 [facility] Comment on above: Performed By: #### C BC #### [facility] [address] [place] [address] Dr. Darius Zepeda Monocytes/100 WBC (Bld) 9.1 % Normal 1.7-12.0 [facility] Comment on above: Performed By: #### C BC #### [facility] [address] [place] [address] Dr. Darius Zepeda NEUT # 5.2 103/ul Normal 1.4-6.5 [facility] Comment on above: Performed By: #### C BC #### [facility] [address] [place] [address] Dr. Darius Zepeda Neutrophils/100 WBC (Bld) 61.6 % Normal 43.0-75.0 [facility] Comment on above: Performed By: #### C BC #### [facility] [address] [place] [address] Dr. Darius Zepeda Platelet mean volume (Bld) [Entitic vol] 9.6 fL Normal 9.5-13.5 [facility] Comment on above: Performed By: #### C BC #### [facility] [address] [place] [address] Dr. Darius Zepeda PLT 204 103/ul Normal 150-450 [facility] Comment on above: Performed By: #### C BC #### [facility] [address] [place] [address] Dr. Darius Zepeda RBC 4.25 106/ul Normal 4.20-5.40 [facility] Comment on above: Performed By: #### C BC #### [facility] [address] [place] [address] Dr. Darius Zepeda WBC 8.4 103/ul Normal 4.0-11.0 [facility] Comment on above: Performed By: #### C BC #### [facility] [address] [place] [address] Dr. Darius Zepeda CRPon 11-11-2021 CRP 1.1 mg/dL Critically high <=1.0 [facility] Comment on above: Performed By: #### L DH, BMP, LIVER, CRP #### [facility] [address] [place] [address] Dr. Darius Zepeda FREE T4on 11-11-2021 Free T4 [Mass/Vol] 0.81 ng/dL Normal 0.76-1.46 [facility] Comment on above: Performed By: #### F T4 #### [facility] [address] [place] [address] Dr. Darius Zepeda PROF 14(COMP METB)on 022 Albumin [Mass/Vol] 3.4 g/dL Normal 3.4-5.0 [facility] Comment on above: Performed By: #### L DH, BMP, LIVER, CRP #### [facility] [address] [place] [address] Dr. Darius Zepeda Albumin/Globulin [Mass ratio] 0.9 {ratio} Normal [facility] Comment on above: Performed By: #### L DH, BMP, LIVER, CRP #### [facility] [address] [place] [address] Dr. Darius Zepeda ALP [Catalytic activity/Vol] 92 U/L Normal 46-116 [facility] Comment on above: Performed By: #### L DH, BMP, LIVER, CRP #### [facility] [address] [place] [address] Dr. Darius Zepeda ALT [Catalytic activity/Vol] 23 U/L Normal 14-59 [facility] Comment on above: Performed By: #### L DH, BMP, LIVER, CRP #### [facility] [address] [address] [address] Darius Zepeda Anion gap [Moles/Vol] 9.4 mmol/L Normal [facility] Comment on above: Performed By: #### L DH, BMP, LIVER, CRP #### [facility] [address] [address] [address] Darius Zepeda AST [Catalytic activity/Vol] 14 U/L Critically low 15-37 [facility] Comment on above: Performed By: #### L DH, BMP, LIVER, CRP #### [facility] [address] [address] [address] Darius Zepeda Bilirubin [Mass/Vol] 0.4 mg/dL Normal 0.2-1.0 [facility] Comment on above: Performed By: #### L DH, BMP, LIVER, CRP #### [facility] [address] [address] [address] Darius Zepeda Calcium [Mass/Vol] 9.0 mg/dL Normal 8.5-10.1 [facility] Comment on above: Performed By: #### L DH, BMP, LIVER, CRP #### [facility] [address] [address] [address] Darius Zepeda Chloride [Moles/Vol] 104 mmol/L Normal 98-107 [facility] Comment on above: Performed By: #### L DH, BMP, LIVER, CRP #### [facility] [address] [address] [address] Darius Zepeda CO2 [Moles/Vol] 30.5 mmol/L Normal 21.0-32.0 [facility] Comment on above: Performed By: #### L DH, BMP, LIVER, CRP #### [facility] [address] [address] [address] Darius Zepeda Creatinine [Mass/Vol] 0.92 mg/dL Normal 0.55-1.02 [facility] Comment on above: Performed By: #### L DH, BMP, LIVER, CRP #### [facility] [address] [address] [address] Darius Zepeda EGFR-AF BURKINAN >60 Normal >=60 [facility] Comment on above: Performed By: #### L DH, BMP, LIVER, CRP #### [facility] [address] [address] [address] Darius Zepeda EGFR-NON AF BURKINAN 60 mL/min/1.73m2 Normal >=60 [facility] Comment on above: Performed By: #### L DH, BMP, LIVER, CRP #### [facility] [address] [address] [address] Darius Zepeda Globulin (S) [Mass/Vol] 3.7 g/dL Normal [facility] Comment on above: Performed By: #### L DH, BMP, LIVER, CRP #### [facility] [address] [place] [address] Dr. Darius Zepeda Glucose [Mass/Vol] 88 mg/dL Normal 74-106 [facility] Comment on above: Performed By: #### L DH, BMP, LIVER, CRP #### [facility] [address] [place] [address] Dr. Darius Zepeda Potassium [Moles/Vol] 3.9 mmol/L Normal 3.5-5.1 [facility] Comment on above: Performed By: #### L DH, BMP, LIVER, CRP #### [facility] [address] [place] [address] Dr. Darius Zepeda Protein [Mass/Vol] 7.1 g/dL Normal 6.4-8.2 [facility] Comment on above: Performed By: #### L DH, BMP, LIVER, CRP #### [facility] [address] [place] [address] Dr. Darius Zepeda Sodium [Moles/Vol] 140 mmol/L Normal 136-145 [facility] Comment on above: Performed By: #### L DH, BMP, LIVER, CRP #### [facility] [address] [place] [address] Dr. Darius Zepeda Urea nitrogen [Mass/Vol] 25.0 mg/dL Critically high 7.0-18.0 [facility] Comment on above: Performed By: #### L DH, BMP, LIVER, CRP #### [facility] [address] [address] [address] Darius Zepeda Urea nitrogen/Creatinin e [Mass ratio] 27.2 mg/mg Normal [facility] Comment on above: Performed By: #### L DH, BMP, LIVER, CRP #### [facility] [address] [address] [address] Darius Zepeda SED RATE WESTERGRENon 2021 SED RATE 14 mm/hr Normal <=30 [facility] Comment on above: Performed By: #### S EDR #### [facility] [address] [place] [address] Dr. Darius Zepeda TSHon 11-11-2021 TSH 3.474 uIU/mL Normal 0.358-3.740 [facility] Comment on above: Performed By: #### L DH, BMP, LIVER, CRP #### [facility] [address] [place] [address] Dr. Darius Zepeda TSH RANGE SEE BELOW Normal [facility] Comment on above: Result Comment: <0.3 4 UIU/ml HYPERTHYROID 0.34-5.60 UIU/ml EUTHYROID >5.60 UIU/ml HYPOTHYROID Performed By: #### L DH, BMP, LIVER, CRP #### [facility] [address] [place] [address] Dr. Darius Zepeda MRI LSPINE WO CONon [...] BIRGIT HAMILTON Date: 2021-11-04 15:15 Normal [facility] FERRITINon 06-02-2021 Ferritin [Mass/Vol] 46 ng/mL Normal 15-150 [facility] Comment on above: Performed By: #### L DH, BMP, LIVER, CRP #### [facility] [address] [place], [place] [address] Dr. Darius Zepeda VITAMIN B12on 06-02-2021 Cobalamin (Vitamin B12) [Mass/Vol] 637 pg/mL Normal 232-1245 [facility] Comment on above: Performed By: #### L DH, BMP, LIVER, CRP #### [facility] [address] [place], [place] [address] Dr. Darius Zepeda GLYCOHEMOGLOBIN A1Con 2020 ADA RECOMMENDATION ADA THERAPEUTIC TARG ET 6.0 - 7.0 ACTION SUGGESTED > 7.0 Normal [facility] Comment on above: Performed By: #### L DH, BMP, LIVER, CRP #### [facility] [address] [address] [address] Darius Zepeda Glucose [Mass/Vol] 111 mg/dL Normal [facility] Comment on above: Performed By: #### L DH, BMP, LIVER, CRP #### [facility] [address] [address] [address] Darius Zepeda HbA1c (Bld) [Mass fraction] 5.5 % Normal <=6.0 [facility] Comment on above: Performed By: #### L DH, BMP, LIVER, CRP #### [facility] [address] [address] [address] Darius Zepeda IRONon 06-01-2021 Iron [Mass/Vol] 55.0 ug/dL Normal 37.0-170.0 [facility] Comment on above: Performed By: #### I HO #### [facility] [address] [address] [address] Darius Zepeda TSHon 06-01-2021 TSH 3.277 uIU/mL Normal 0.470-4.680 [facility] Comment on above: Performed By: #### L DH, BMP, LIVER, CRP #### [facility] [address] [address] [address] Darius Zepeda TSH RANGE SEE BELOW Normal [facility] Comment on above: Result Comment: <0.3 4 UIU/ml HYPERTHYROID 0.34-5.60 UIU/ml EUTHYROID >5.60 UIU/ml HYPOTHYROID Performed By: #### L DH, BMP, LIVER, CRP #### [facility] [address] [place] [address] Dr. Darius Zepeda XR LSPINE 2_3 VIEWSon [...] CARMEL GOVEA Date: 2021-05-26 07:10 Normal [facility] CBC AUTO DIFFon 05-25-2021 BASO # 0.1 103/ul Normal 0.0-0.1 [facility] Comment on above: Performed By: #### L DH, BMP, LIVER, CRP #### [facility] [address] [address] [address] Darius Zepeda Basophils/100 WBC (Bld) 0.6 % Normal 0.2-2.0 [facility] Comment on above: Performed By: #### L DH, BMP, LIVER, CRP #### [facility] [address] [address] [address] Darius Zepeda EO # 0.1 103/ul Normal 0.0-0.7 [facility] Comment on above: Performed By: #### L DH, BMP, LIVER, CRP #### [facility] [address] [address] [address] Darius Zepeda Eosinophils/100 WBC (Bld) 1.0 % Normal 0.9-7.0 [facility] Comment on above: Performed By: #### L DH, BMP, LIVER, CRP #### [facility] [address] [address] [address] Darius Zepeda Erythrocyte distribution width (RBC) [Ratio] 14.0 % Normal 11.0-15.0 [facility] Comment on above: Performed By: #### L DH, BMP, LIVER, CRP #### [facility] [address] [address] [address] Darius Zepeda Hematocrit (Bld) [Volume fraction] 38.4 % Normal 36.0-48.0 [facility] Comment on above: Performed By: #### L DH, BMP, LIVER, CRP #### [facility] [address] [address] [address] Darius Zepeda Hemoglobin (Bld) [Mass/Vol] 11.9 g/dL Critically low 12.0-16.0 [facility] Comment on above: Performed By: #### L DH, BMP, LIVER, CRP #### [facility] [address] [place] [address] Dr. Darius Zepeda IG # 0.02 10e3/ul Normal 0.00-0.03 [facility] Comment on above: Performed By: #### L DH, BMP, LIVER, CRP #### [facility] [address] [place] [address] Dr. Darius Zepeda IG % 0.2 % Normal 0.0-0.5 [facility] Comment on above: Performed By: #### L DH, BMP, LIVER, CRP #### [facility] [address] [place] [address] Dr. Darius Zepeda LYMPH # 2.2 103/ul Normal 1.2-3.8 [facility] Comment on above: Performed By: #### L DH, BMP, LIVER, CRP #### [facility] [address] [place] [address] Dr. Darius Zepeda Lymphocytes/100 WBC (Bld) 24.0 % Normal 20.5-60.0 [facility] Comment on above: Performed By: #### L DH, BMP, LIVER, CRP #### [facility] [address] [place] [address] Dr. Darius Zepeda MANUAL DIFF REQ NO Normal [facility] Comment on above: Performed By: #### L DH, BMP, LIVER, CRP #### [facility] [address] [place] [address] Dr. Darius Zepeda MCH (RBC) [Entitic mass] 25.5 pg Critically low 26.7-34.0 [facility] Comment on above: Performed By: #### L DH, BMP, LIVER, CRP #### [facility] [address] [place] [address] Dr. Darius Zepeda MCHC (RBC) [Mass/Vol] 31.0 g/dL Normal 29.9-35.2 [facility] Comment on above: Performed By: #### L DH, BMP, LIVER, CRP #### [facility] [address] [place] [address] Dr. Darius Zepeda MCV (RBC) [Entitic vol] 82.2 fL Normal 81.0-99.0 [facility] Comment on above: Performed By: #### L DH, BMP, LIVER, CRP #### [facility] [address] [place] [address] Dr. Darius Zepeda MONO # 0.6 103/ul Normal 0.3-0.8 [facility] Comment on above: Performed By: #### L DH, BMP, LIVER, CRP #### [facility] [address] [place] [address] Dr. Darius Zepeda Monocytes/100 WBC (Bld) 6.5 % Normal 1.7-12.0 [facility] Comment on above: Performed By: #### L DH, BMP, LIVER, CRP #### [facility] [address] [place] [address] Dr. Darius Zepeda NEUT # 6.1 103/ul Normal 1.4-6.5 [facility] Comment on above: Performed By: #### L DH, BMP, LIVER, CRP #### [facility] [address] [place] [address] Dr. Darius Zepeda Neutrophils/100 WBC (Bld) 67.7 % Normal 43.0-75.0 [facility] Comment on above: Performed By: #### L DH, BMP, LIVER, CRP #### [facility] [address] [place] [address] Dr. Darius Zepeda Platelet mean volume (Bld) [Entitic vol] 9.6 fL Normal 9.5-13.5 [facility] Comment on above: Performed By: #### L DH, BMP, LIVER, CRP #### [facility] [address] [place] [address] Dr. Darius Zepeda PLT 228 103/ul Normal 150-450 [facility] Comment on above: Performed By: #### L DH, BMP, LIVER, CRP #### [facility] [address] [address] [address] Darius Zepeda RBC 4.67 106/ul Normal 4.20-5.40 [facility] Comment on above: Performed By: #### L DH, BMP, LIVER, CRP #### [facility] [address] [place] [address] Dr. Darius Zepeda WBC 9.0 103/ul Normal 4.0-11.0 [facility] Comment on above: Performed By: #### L DH, BMP, LIVER, CRP #### [facility] [address] [place] [address] Dr. Darius Zepeda PROF 14(COMP METB)on 021 Albumin [Mass/Vol] 3.8 g/dL Normal 3.5-5.0 [facility] Comment on above: Performed By: #### L DH, BMP, LIVER, CRP #### [facility] [address] [place] [address] Dr. Darius Zepeda Albumin/Globulin [Mass ratio] 0.9 {ratio} Normal [facility] Comment on above: Performed By: #### L DH, BMP, LIVER, CRP #### [facility] [address] [place] [address] Dr. Darius Zepeda ALP [Catalytic activity/Vol] 94 U/L Normal 38-126 [facility] Comment on above: Performed By: #### L DH, BMP, LIVER, CRP #### [facility] [address] [place] [address] Dr. Darius Zepeda ALT [Catalytic activity/Vol] 27 U/L Normal 9-52 [facility] Comment on above: Performed By: #### L DH, BMP, LIVER, CRP #### [facility] [address] [place] [address] Dr. Darius Zepeda Anion gap [Moles/Vol] 13.3 mmol/L Normal [facility] Comment on above: Performed By: #### L DH, BMP, LIVER, CRP #### [facility] [address] [address] [address] Darius Zepeda AST [Catalytic activity/Vol] 16 U/L Normal 14-36 [facility] Comment on above: Performed By: #### L DH, BMP, LIVER, CRP #### [facility] [address] [place] [address] Dr. Darius Zepeda Bilirubin [Mass/Vol] 0.5 mg/dL Normal 0.2-1.3 [facility] Comment on above: Performed By: #### L DH, BMP, LIVER, CRP #### [facility] [address] [place] [address] Dr. Darius Zepeda Calcium [Mass/Vol] 9.5 mg/dL Normal 8.4-10.2 [facility] Comment on above: Performed By: #### L DH, BMP, LIVER, CRP #### [facility] [address] [place] [address] Dr. Darius Zepeda Chloride [Moles/Vol] 103 mmol/L Normal 98-107 [facility] Comment on above: Performed By: #### L DH, BMP, LIVER, CRP #### [facility] [address] [place] [address] Dr. Darius Zepeda CO2 [Moles/Vol] 27.2 mmol/L Normal 22.0-30.0 [facility] Comment on above: Performed By: #### L DH, BMP, LIVER, CRP #### [facility] [address] [place] [address] Dr. Darius Zepeda Creatinine [Mass/Vol] 0.98 mg/dL Normal 0.52-1.04 [facility] Comment on above: Performed By: #### L DH, BMP, LIVER, CRP #### [facility] [address] [place] [address] Dr. Darius Zepeda EGFR-AF BURKINAN >60 Normal >=60 [facility] Comment on above: Performed By: #### L DH, BMP, LIVER, CRP #### [facility] [address] [address] [address] Darius Zepeda EGFR-NON AF BURKINAN 55 mL/min/1.73m2 Critically low >=60 [facility] Comment on above: Performed By: #### L DH, BMP, LIVER, CRP #### [facility] [address] [address] [address] Darius Zepeda Globulin (S) [Mass/Vol] 4.2 g/dL Normal [facility] Comment on above: Performed By: #### L DH, BMP, LIVER, CRP #### [facility] [address] [address] [address] Darius Zepeda Glucose [Mass/Vol] 109 mg/dL Critically high 74-106 [facility] Comment on above: Performed By: #### L DH, BMP, LIVER, CRP #### [facility] [address] [address] [address] Darius Zepeda Potassium [Moles/Vol] 3.5 mmol/L Normal 3.4-5.0 [facility] Comment on above: Performed By: #### L DH, BMP, LIVER, CRP #### [facility] [address] [address] [address] Darius Zepeda Protein [Mass/Vol] 8.0 g/dL Normal 6.1-8.2 [facility] Comment on above: Performed By: #### L DH, BMP, LIVER, CRP #### [facility] [address] [address] [address] Darius Zepeda Sodium [Moles/Vol] 140 mmol/L Normal 137-145 [facility] Comment on above: Performed By: #### L DH, BMP, LIVER, CRP #### [facility] [address] [address] [address] Darius Zepeda Urea nitrogen [Mass/Vol] 19.0 mg/dL Critically high 7.0-17.0 [facility] Comment on above: Performed By: #### L DH, BMP, LIVER, CRP #### [facility] [address] [address] [address] Darius Zepeda Urea nitrogen/Creatinin e [Mass ratio] 19.4 mg/mg Normal [facility] Comment on above: Performed By: #### L DH, BMP, LIVER, CRP #### [facility] [address] [place] [address] Dr. Darius Zepeda Vital Signs Date Time Vital Sign Value Performing Clinician Facility 02-16-2022 13:09-0400 Blood Pressure Location Tello NILL [facility] [place] 02-16-2022 13:09-0400 Diastolic blood pressure 86 mm[Hg] Tello NILL [facility] 02-16-2022 13:09-0400 Heart rate 74 /min Tello NILL [facility] [place] 02-16-2022 13:09-0400 Respiratory rate 16 /min Tello NILL [facility] 02-16-2022 13:09-0400 Systolic blood pressure 122 mm[Hg] Tello NILL [facility] 01-25-2022 15:04-0400 Body height 164 cm Joey Kruger MD Work Phone: [facility] 01-25-2022 15:04-0400 Body temperature 97.11 [degF] Joey Kruger MD Work Phone: [facility] 01-25-2022 15:04-0400 Body weight 81.19 kg Joey Kruger MD Work Phone: [facility] 01-25-2022 15:04-0400 Diastolic blood pressure 79 mm[Hg] Joey Kruger MD Work Phone: [facility] 01-25-2022 15:04-0400 Heart rate 76 /min Joey Kruger MD Work Phone: [facility] 01-25-2022 15:04-0400 Respiratory rate 16 /min Joey Kruger MD Work Phone: [facility] 01-25-2022 15:04-0400 SaO2% (BldA) [Mass fraction] 98 % Joey Kruger MD Work Phone: [facility] 01-25-2022 15:04-0400 Systolic blood pressure 152 mm[Hg] Joey Kruger MD Work Phone: [facility] Encounters Encounter Date Encounter Type Care Provider Facility Start: 08-11-2023 End: 08-11-2023 ambulatory CYNTHIA DAY Not Available Start: 03-31-2022 End: 04-01-2022 [facility] Start: 03-31-2022 End: 03-31-2022 Patient encounter procedure Tello CARMONA General Surgery [facility] Start: 03-10-2022 Encounter for preprocedural laboratory examination DR TELLO CARMONA [facility] Start: 03-10-2022 End: 03-11-[address] TELLO CARMONA Facility:[facility] Start: 03-06-2022 End: 03-07-[address] TELLO CARMONA Facility:[facility] Start: 03-06-2022 End: 03-07-2022 Encounter for preprocedural laboratory examination DR TELLO CARMONA Facility:[facility] Start: 02-16-2022 End: 02-17-2022 ambulatory [facility] Start: 02-16-2022 End: 02-16-2022 Patient encounter procedure [...] Facility:[facility] Start: 12-16-2021 End: 12-17-[address] BIGRIT HAMILTON Facility:[facility] Start: 12-11-2021 End: 12-12-2021 ambulatory [employer] ROSITA SCHAFFER Facility:[facility] Start: 12-04-2021 End: 12-05-2021 ambulatory [employer] ROSITA SCHAFFER Facility:[facility] Start: 12-02-2021 End: 12-03-[address] BIRGIT HAMILTON Facility:[facility] Start: 11-11-2021 End: 11-12-2021 ambulatory STEPHANIE SCHAFFER Facility:[facility] Start: 11-04-2021 End: 11-05-[address] BIRGIT HAMILTON Facility:[facility] Start: 06-01-2021 End: 06-02-2021 ambulatory [employer] ROSITATyra SCHAFFER Facility:[facility] Start: 05-25-2021 End: 05-26-2021 ambulatory [employer] ROSITA HERNESTO Facility:[facility] Start: 04-14-2021 End: 04-15-2021 ambulatory CIELO MEME HELEN Facility:[facility] Procedures Date Procedure Procedure Detail Performing Clinician Start: 03-10-2022 Colonoscopy Telol NI LL Start: 03-10-2022 Esophagogastroduodenoscopy Tello CARMONA Start: 03-10-2007 Colonoscopy Tello NI LL Biopsy of thyroid Tello SILVA LL Colonoscopy Tello NILL Lumpectomy of left breast Mi mendydhaval DANNY Partial resection of colon M becki DANNY Plan of Treatment Date Care Activity Detail Author Start: 01-25-2025 DIABETES SCREEN DIABETES SCREEN [facility] Start: 02-04-2022 Influenza vaccination INFLUENZA (#1) [facility] Start: 06-06-2021 ADVANCE DIRECTIVE DISCUSSION ADVANCE DIRECTIVE DISCUSSION [facility] Start: 2012 BONE DENSITY BONE DENSITY [facility] Start: 2012 PNEUMOCOCCAL: 65+ (1 - PCV) PNEUMOCOCCAL: 65+ (1 - PCV) [facility] Start: 1997 SHINGRIX VACCINE (1 of 2) SHINGRIX V ACCINE (1 of 2) [facility] Start: 1992 COLOGUARD (FIT-DNA) COLOGUARD (FIT-D NA) [facility] Start: 1992 Colonoscopy COLONOSCOPY [facility] Start: 1992 COLORECTAL CANCER SCREENING COLORECTAL CANCER SCREENING [facility] Start: [address] COLONOGRAPHY [facility] Start: 1992 DIABETES SCREEN DIABETES SCREEN [facility] Start: 1992 FECAL OCCULT BLOOD FECAL OCCULT BLOO D [facility] Start: 1992 LIPID SCREEN LIPID SCREEN [facility] Start: 1992 SIGMOIDOSCOPY SIGMOIDOSCOPY [facility] Start: 1987 Mammography MAMMOGRAM [facility] Start: 1966 Urine microalbumin profile DTAP,TDAP ,TD (1 - Tdap) [facility] Start: 1965 HEPATITIS C SCREENING HEPATITIS C SC REENING [facility] Start: 1959 Adult depression scr [facility] DEPRESSION SCREENING [facility] Start: 1947 COVID-19 VACCINE (#1) COVID-19 VACCI NE (#1) [facility] Immunizations Immunization Date Immunization Notes Care Provider Fa cilitristan 01-23-2022 COVID-19 vaccine, fu ll dose (MODERNA) Joey Kruger MD Work Phone: [facility] 04-14-2021 COVID-19 vaccine, fu ll dose (MODERNA) Joey Kruger MD Work Phone: [facility] 08-27-2020 COVID-19 vaccine, fu ll dose (MODERNA) Joey Kruger MD Work Phone: [facility] 07-21-2020 COVID-19 vaccine, fu ll dose (MODERNA) Joey Kruger MD Work Phone: [facility] Payers Date Payer Category Payer Medicaid MEDICAID [facility] MEDICAID [id number] 2022-2022 [address] [place] [address] Medicaid [id number] 1993 Medicare MEDICARE MEDICAR E A AND B [id number] 1993-[address] [place] [address] [place] [address] Medicare [id number] 1959 Medicaid [id number] 1959 Medicare [id number] 1959 Self-pay [id number] 1947 Unknown [id number] 1947 Unknown [id number] [id number]3 1947 Unknown [id number] 2.16.840.1.303282.3.579.2.593 1947 Unknown [id number] 2.16.840.1.706866.3.579.2.593 1947 Unknown [id number] 2.16.840.1.861107.3.579.2.593 1947 Unknown [id number] 2.16.840.1.494159.3.579.2.593 1947 Unknown [id number] 2.16.840.1.436482.3.579.2.593 1947 Unknown [id number] 2.16.840.1.994246.3.579.2.593 1947 Unknown [id number] 2.16.840.1.667344.3.579.2.593 1947 Unknown [id number] 2.16.840.1.592404.3.579.2.593 1947 Unknown [id number] 2.16.840.1.844391.3.579.2.593 1947 Unknown [id number] 2.16.840.1.002203.3.579.2.593 1947 Unknown [id number] 2.16.840.1.917311.3.579.2.727 1947 Unknown [id number] 2.16.840.1.050631.3.579.2.727 1947 Unknown [id number] 2.16.840.1.269874.3.579.2.727 1947 Unknown [id number] 2.16.840.1.300091.3.579.2.727 1947 Unknown [id number] 2.16.840.1.693853.3.579.2.1259 Medicare [id number] Unknown [id number] [id number] Social History Date Type Detail Facility Start: 10-16-2013 End: 02-16-2022 Tobacco smoking status COIS Never smoked tobacco [facility] Start: 10-16-2013 End: 01-25-2022 Tobacco use and exposure Smokeless tobacco non-user [facility] Start: 01-22-2022 End: 01-25-2022 Alcohol intake Current non-drinker of alcohol (finding) [facility] Start: 1945 Sex Assigned At Not on file [facility] History of tobacco use Passive smoker [facility] Start: 01-15-2022 End: 01-25-2022 Exposure to SARS-CoV-2 (event) Not sure [facility] Tobacco smoking status Never [facility] [place] Sex Assigned At [facility] [place] Functional Status Date Assessment Result Facility 02-16-2022 [...] good condition. CC: Rosita Schaffer CNP [facility] 02-16-2022 Note Chief Complaint consultation for [...] Tobacco Use:., 02/04 (more content not included)... [facility] Comment on above: Result Comment: Elec tronically Signed By: DANNY HINDS, Tello Kwon\Date and Time Signed: 02/16/22 14:37 EDT 02-03-2022 Note HNO ID: [id number] Author: Joey Kruger MD Service: ? Author Type: Physician Type: Progress Notes Filed: 02/07/2022 12:04 AM Note Text: NAME: Riana Garcia [facility] NO.: [id number] DATE OF SERVICE: February 03, 2022 Some [...] with but also will need records from [facility] with respect to both pathology and [...] 01/25/2022) hydrochlorothiazide (HYDRODIU (more content not included)... [facility] 01-25-2022 Note HNO ID: [id number] Author: Joey Kruger MD Service: ? Author Type: Physician Type: Progress Notes Filed: 02/01/2022 8:13 PM Note Text: NAME: Riana Garcia NO.: [id number] DATE OF SERVICE: January 25, 2022 Referring [...] with but also will need records from [facility] with respect to both pathology and surgery. She is also scheduled to have a thyroid nodule biopsied. 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 PLAN: 1. Need path and surgery records from colon cancer prior to 2006 - [facility] 2. Labs drawn today 3. RTC in [...] 11.5 Hematocrit (%) (more content not included)... [facility] 01-25-2022 Instructions Joey Kruger MD - 01/25/2022 3:34 PM EDT 1. Need path and surgery records from colon cancer prior to 2006 - [facility] 2. Labs drawn today 3. RTC in 9 days to discuss 4. Keep appointment for thyroid nodule biopsy documented in this encounter [facility] 01-25-2022 History of Presen t illness Narrative Images from the original note were not included. NAME: Maria InesRiana hall [facility]IN[facility] NO.: [id number] DATE OF SERVICE: January 25, 2022 Referring [...] with but also will need records from [facility] with respect to both pathology and surgery. She is also scheduled to have a thyroid nodule biopsied. 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 PLAN: 1. Need path and surgery records from colon cancer prior to 2006 - [facility] 2. Labs drawn today 3. RTC in [...] which included preparing to see the patient, bvue-df-orac patient care, completing clinical documentation, obtaining and/or reviewing separately obtained history, performing a medically appropriate examination, counseling and educating the patient/family/caregiver, ordering medications, tests, or procedures, communicating with other HCPs (not separately reported), and independently interpreting results (not separately reported). Joey Krugre MD, CPE Hematology and Oncology Services Provided at: [place], [place] CC: ROSITA WOO [address] [facility] [address] Sary Holt MD [address] [facility] [address] documented in this encounter [facility] 01-25-2022 Nurse Note Patient had a Covid booster Tuesday and her Left arm (at injections site) is red with a creek around it, she wonders if it is an allergic reaction? 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 Malignant neoplasm of colon, unspecified part of colon (HCC) [facility] No data available for this section [facility] [place] Progress note No data available for this section [facility] [place] Summary Purpose Family History No Family History Records FoundNo Family History Records FoundNo Family History Records FoundNo Family History Records FoundNo Family History Records Found Advance Directives No Advanced Directives Records FoundNo Advanced Directives Records FoundNo Advanced Directives Records FoundNo Advanced Directives Records FoundNo Advanced Directives Records Found Additional Source Comments INFORMATION SOURCE (unrecogn ized section and content) DATE CREATED AUTHOR 01/05/2022 [facility] DATE CREATED AUTHOR AUTHOR'S ORGANIZ ATION 02/06/2022 [facility] DATE CREATED AUTHOR AUTHOR'S ORGANIZ ATION 03/28/2022 [facility] DATE CREATED AUTHOR AUTHOR'S ORGANIZ ATION 04/19/2022 Erick Hardin [facility] DATE CREATED AUTHOR AUTHOR'S ORGANIZ ATION 08/12/2023 [facility] EPIC Source Comments (unrecognize d section and content) In the event this informatio n is protected by the Federal Confidentiality of Alcohol and Drug Abuse Patient Records regulations: The Federal rules restrict any use of the information to criminally investigate or prosecute any alcohol or drug abuse patient[facility] the event this information is protected by the Federal Confidentiality of Alcohol and Drug Abuse Patient Records regulations: The Federal rules restrict any use of the information to criminally investigate or prosecute any alcohol or drug abuse patient.[facility] Care Teams (unrecognized sec tion and content) Aircraft Sales Representative Relationship Specialty Start Date End Date Sary Holt MD [address] [address] PCP - General Family Practice 09/27/13 Aircraft Sales Representative Relationship Specialty Start Date End Date Sary Holt MD [address] [place] [address] PCP - General Family Practice 09/27/13 Reason [...] BE BASED ON THE PRIMARY CLINICAL RECORDS. [facility] [employer] [facility]. provides no warranty or guarantee of the accuracy or completeness of information in this document.
[2024-01-25 14:07] LABS: Basophils Percent Auto 0.4 % (0.2-2.0); Eosinophils Absolute Auto 0.1 10^3/uL (0.0-0.7); Eosinophils Percent Auto 0.7 % (0.9-7.0); Hematocrit 37.1 % (36.0-48.0); Hemoglobin 11.8 g/dL (12.0-16.0); Immature Granulocytes Abs Auto 0.02 10^3/uL (0.00-0.03); Immature Granulocytes Pct Auto 0.2 % (0.0-0.5); Lymphocytes Absolute Auto 1.9 10^3/uL (1.2-3.8); Lymphocytes Percent Auto 20.7 % (20.5-60.0); Mean Corpuscular HGB Conc 31.8 g/dL (29.9-35.2); Mean Corpuscular Hemoglobin 26.2 pg (26.7-34.0); Mean Corpuscular Volume 82.4 fL (81.0-99.0); Mean Platelet Volume 10.2 fL (9.5-13.5); Monocytes Absolute Auto 0.6 10^3/uL (0.3-0.8); Monocytes Percent Auto 6.6 % (1.7-12.0); Neutrophils Absolute Auto 6.4 10^3/uL (1.4-6.5); Neutrophils Percent Auto 71.4 % (43.0-75.0); Platelet Count 214 10^3/uL (150-450); Red Cell Distribution Width 13.5 % (11.0-15.0)
[2024-01-25 14:19] LABS: INR 0.97; Prothrombin Time 10.3 sec (9.0-11.6)
[2024-01-25] MEDS: 0.9 % SODIUM CHLORIDE 1,000 ML 250 ML IV (14:19)
[2024-01-25 14:26] LABS: Lactate/Lactic Acid 0.8 mmol/L (0.4-2.0)
[2024-01-25 14:33] LABS: Alanine Aminotransferase 19 U/L (14-59); Albumin Globulin Ratio 0.9; Albumin Level 3.5 g/dL (3.4-5.0); Alkaline Phosphatase 87 U/L (46-116); Anion Gap 8.4; Aspartate Amino Transferase 16 U/L (15-37); BUN Creatinine Ratio 28.7; Bilirubin Total 0.7 mg/dL (0.2-1.0); Carbon Dioxide 30.3 mmol/L (21.0-32.0); Chloride 104 mmol/L (98-107); Estimated GFR (African America >60 (>=60); Estimated GFR (Non-African Ame >60 (>=60); Globulin 3.8 g/dL; Glucose 108 mg/dL (74-106); Potassium 3.7 mmol/L (3.5-5.1); Sodium 139 mmol/L (136-145); Thyroid Stimulating Hormone 3.257 uIU/mL (0.358-3.740); Total Protein 7.3 g/dL (6.4-8.2); Troponin I High Sensitivity <4.0 pg/mL (4.0-51.3)
[2024-01-25 14:41] LABS: Bilirubin Urine NEGATIVE (NEGATIVE); Blood Urine NEGATIVE (NEGATIVE); Clarity Urine CLEAR (CLEAR); Color Urine LT. YELLOW (YELLOW); Glucose Urine UA NEGATIVE (NEGATIVE); Ketones Urine NEGATIVE (NEGATIVE); Leukocyte Esterase Urine NEGATIVE (NEGATIVE); Nitrite Urine NEGATIVE (NEGATIVE); Protein Urine NEGATIVE (NEG/TRACE); Urobilinogen Urine 0.2 EU/dL (0.2-1.0)
[2024-01-25 14:47] LABS: Urine Microscopic Indicated NO
[2024-01-25] MEDS: LABETALOL HCL 20 MG/4 ML SYRINGE 10 MG IVP (15:02)
== END 2024-01-25 15:30 | disposition home or self-care (01) ==
PROVIDERS: Physician Assistant; Emergency Provider Emergency Medicine; PCP Nurse Practitioner
DX: I10 Essential (primary) hypertension (principal); G20.A1 Parkinson's disease without dyskinesia, without mention of fluctuations; R26.81 Unsteadiness on feet
CPT/HCPCS: 36415; 70450; 71045; 80053; 81003; 83605; 84443; 84484; 85025; 85610; 93005; 96374; 99285; J1920

== ENCOUNTER 2025-02-05 15:08 | Emergency (ER) | payer MEDICARE, SELFPAY ==
[2025-02-05] VITALS (11 sets, daily range): BP systolic 155–179; BP diastolic 82–99; PULSE 81–118; TEMP 36.8; O2SAT 95–98; BMI 27.5
--- NOTE | 2025-02-05 15:24 | ECG_ITS ---
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
--- NOTE | 2025-02-05 15:25 | ED.GENADUL1 ---
HPI HPI - General Adult General Chief complaint: Weakness Stated complaint: BLOOD PRESSURE Time Seen by Provider: 02/05/25 15:14 Source: patient Mode of arrival: Wheelchair History of Present Illness HPI narrative: 79 year old female presents to the ED for dizziness, not feeling herself. Onset was a few days ago. States I feel drunk. Onset was 3 days ago. Denies fever, chills, FARRAR, vision changes. Denies CP, cough, N/V/D, urinary symptoms. Reports SOB when walking to get her mail; this is not new for her. She has been out of her HCTZ for 2 weeks. She has hx Parkinson's disease, COPD. Reports colon cancer 20-30 years ago. She drove herself to the ED today. Related Data Home Medications ?Medication ?Instructions ?Recorded ?Confirmed carbidopa 25 mg-levodopa 100 mg 0.5 tab PO TID 06/02/23 02/05/25 tablet carvedilol 12.5 mg tablet 12.5 mg PO BID 06/02/23 02/05/25 hydrochlorothiazide 12.5 mg tablet 12.5 mg PO DAILY 06/02/23 02/05/25 losartan 50 mg tablet 50 mg PO QDAY 06/02/23 02/05/25 Previous Rx's ?Medication ?Instructions ?Recorded cephalexin 500 mg capsule 500 mg PO BID 5 days #10 caps 02/05/25 Allergies Allergy/AdvReac Type Severity Reaction Status Date / Time No Known Drug Allergies Allergy Verified 06/03/23 14:50 Opioid HPI Opioid Management Most Recent Opioid Data: Last Pain Scale 2 06/04/23, 10:10 Review of Systems ROS Constitutional Denies: fever or chills Eyes Denies: change in vision Ears, nose, mouth, and throat Denies: throat pain or neck pain Cardiovascular Denies: chest pain or palpitations Respiratory Reports: shortness of breath; Denies: cough Gastrointestinal Denies: abdominal pain, nausea, vomiting or diarrhea Genitourinary Denies: painful urination Musculoskeletal Denies: back pain or neck pain Integumentary/Breast Denies: rash Neurological Reports: dizziness; Denies: headache, numbness in extremities or weakness in extremities [facility] Medical History (Updated 02/05/25 @ 17:52 by Fay Nielson) Personal history of colon cancer ?Z85.038 - Personal history of other malignant neoplasm of large intestine (ICD-10) Parkinsons disease ?G20.A1 - Parkinson's disease without dyskinesia, without mention of fluctuations (ICD-10) COPD (chronic obstructive pulmonary disease) ?J44.9 - Chronic obstructive pulmonary disease, unspecified (ICD-10) HTN (hypertension) ?I10 - Essential (primary) hypertension (ICD-10) Bowel obstruction ?K56.609 - Unspecified intestinal obstruction, unspecified as to partial versus complete obstruction (ICD-10) Bowel obstruction ?K56.609 - Unspecified intestinal obstruction, unspecified as to partial versus complete obstruction (ICD-10) Colon cancer ?C18.9 - Malignant neoplasm of colon, unspecified (ICD-10) Surgical History History of colectomy ?Z90.49 - Acquired absence of other specified parts of digestive tract (ICD-10) Family History Father Family history of cancer Family history of hypertension Mother Family history of hypertension Sister Family history of hypertension Social History (Updated 06/03/23 @ 21:01 by Mary Joseph) Within the past year, how often did you have a drink containing alcohol: never Within the past year, how often did you have six or more drinks on one occasion: never Score interpretation: A score less than 3 is consistent with normal alcohol consumption. 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 Known occupational exposures/hazards: No Highest level of school completed/degree received: high school graduate Do you want help with school or training: No Are you now , , , , never or living with a partner: In a typical week, how many times do you talk on the telephone with family, friends, or neighbors: 3 or more times per week How often do you get together with friends or relatives: 3 or more times per week How often do you attend episcopalian or episcopal services: never Do you belong to any clubs or organizations such as episcopalian groups unions, fraternal or athletic groups, or school groups: no Total score: 1 Score interpretation: A score of less than or equal to 1 indicates the most socially isolated. Little interest or pleasure in doing things: not at all Feeling down, depressed, or hopeless: not at all Feel stressed/tense/nervous/anxious/difficulty sleeping: very much Life stressor details: caregiver stress Due to disability, difficulty making decisions: No Do you think of yourself as: straight/heterosexual Gender Identity: female Exam Constitutional Vital Signs, click to edit/add: Last Vital Signs Temp 98.3 F 02/05/25 15:12 Pulse 82 02/05/25 17:52 Resp 18 02/05/25 17:52 BP 157/90 H 02/05/25 17:52 Pulse Ox 97 02/05/25 17:52 O2 Del Method Room Air 02/05/25 15:54 Common normals: no apparent distress and oriented x3 General appearance: cooperative HENMT Common normals: moist oral mucous membranes Eye Common normals: PERRL, EOMs intact bilaterally, conjunctivae normal and no scleral icterus Neck & C-Spine Common normals: supple Chest Chest: symmetrical chest wall rise Respiratory Common normals: normal respiratory effort and clear to auscultation bilaterally Effort & inspection: able to speak in complete sentences and symmetric chest movement Cardio Common normals: regular rate and regular rhythm GI Common normals: soft to palpation and non-tender Neuro Common normals: oriented x3, CN's II-XII intact bilaterally, moves all extremities and no focal motor deficits Sensorium/orientation: awake and alert Speech: speech normal Motor exam: strength 5/5 throughout, no pronator drift and tremor (consistent with hx Parkinson's disease) Other: NIH Stroke Scale/Score (NIHSS) from [employer] on 02/05/2025 All calculations should be rechecked by clinician prior to use RESULT SUMMARY: 0 points NIH Stroke Scale Still using NIHSS for all strokes? Don't miss a posterior one without HINTS! INPUTS: 1A: Level of consciousness ?> 0 = Alert; keenly responsive 1B: Ask month and age ?> 0 = Both questions right 1C: 'Blink eyes' & 'squeeze hands' ?> 0 = Performs both tasks 2: Horizontal extraocular movements ?> 0 = Normal 3: Visual ngo ?> 0 = No visual loss 4: Facial palsy ?> 0 = Normal symmetry 5A: Left arm motor drift ?> 0 = No drift for 10 seconds 5B: Right arm motor drift ?> 0 = No drift for 10 seconds 6A: Left leg motor drift ?> 0 = No drift for 5 seconds 6B: Right leg motor drift ?> 0 = No drift for 5 seconds 7: Limb Ataxia ?> 0 = No ataxia 8: Sensation ?> 0 = Normal; no sensory loss 9: Language/aphasia ?> 0 = Normal; no aphasia 10: Dysarthria ?> 0 = Normal 11: Extinction/inattention ?> 0 = No abnormality Course Vital Signs Vital signs: Vital Signs Temperature 98.3 F 02/05/25 15:12 Pulse Rate 90 02/05/25 15:12 Respiratory Rate 20 02/05/25 15:12 Blood Pressure 160/90 H 02/05/25 15:12 Pulse Oximetry 97 02/05/25 15:12 Temperature 98.3 F 02/05/25 15:12 Pulse Rate 82 02/05/25 17:52 Respiratory Rate 18 02/05/25 17:52 Blood Pressure 157/90 H 02/05/25 17:52 Pulse Oximetry 97 02/05/25 17:52 Oxygen Delivery Method Room Air 02/05/25 15:54 Medical Decision Making MDM Narrative Medical decision making narrative: CBC, CMP, BNP, and troponin were unremarkable. Urinalysis showed evidence of infection; culture was pending. CT head and chest x-ray were negative for acute findings. Findings were discussed with the patient. A prescription was provided for Keflex. The patient was alert and oriented with a steady gait. Follow up with pcp for a recheck, further evaluation and treatment. Medical Records Medical records reviewed: Yes I reviewed the patient's medical records Lab Data Lab results reviewed: Yes I reviewed the patient's lab results Labs: Lab Results 02/05/25 02/05/25 Range/Units 15:37 15:43 WBC 7.2 (4.0-11.0) 10^3/uL RBC 3.99 L (4.20-5.40) 10^6/uL Hgb 10.8 L (12.0-16.0) g/dL Hct 33.1 L (36.0-48.0) % MCV 83.0 (81.0-99.0) fL MCH 27.1 (26.7-34.0) pg MCHC 32.6 (29.9-35.2) g/dL RDW 13.6 (11.0-15.0) % Plt Count 194 (150-450) 10^3/uL MPV 10.3 (9.5-13.5) fL Neut % (Auto) 64.6 (43.0-75.0) % Lymph % (Auto) 25.8 (20.5-60.0) % Crane % (Auto) 7.7 (1.7-12.0) % Eos % (Auto) 1.2 (0.9-7.0) % Baso % (Auto) 0.4 (0.2-2.0) % Neut # (Auto) 4.7 (1.4-6.5) 10^3/uL Lymph # (Auto) 1.9 (1.2-3.8) 10^3/uL Crane # (Auto) 0.6 (0.3-0.8) 10^3/uL Eos # (Auto) 0.1 (0.0-0.7) 10^3/uL Baso # (Auto) 0.0 (0.0-0.1) 10^3/uL Abs Immat Gran (auto) 0.02 (0.00-0.03) 10^3/uL Imm/Tot Granulo (auto) 0.3 (0.0-0.5) % Sodium 142 (136-145) mmol/L Potassium 3.6 (3.5-5.1) mmol/L Chloride 108 H (98-107) mmol/L Carbon Dioxide 28.2 (21.0-32.0) mmol/L Anion Gap 9.4 BUN 22.0 H (7.0-18.0) mg/dL Creatinine 0.82 (0.55-1.02) mg/dL Est GFR ( Amer) >60 (>=60 mL/min/1.73m^2) Est GFR (Non-Af Amer) >60 (>=60 mL/min/1.73m^2) BUN/Creatinine Ratio 26.8 Glucose 134 H (74-106) mg/dL Calcium 8.3 L (8.5-10.1) mg/dL Magnesium 1.9 (1.8-2.4) mg/dL Total Bilirubin 0.7 (0.2-1.0) mg/dL AST 13 L (15-37) U/L ALT 12 L (14-59) U/L Alkaline Phosphatase 73 (46-116) U/L Troponin I High Sens 4.4 (4.0-51.3) pg/mL NT-Pro-B Natriuret Pep 331.0 (<=1800.0) pg/mL Total Protein 6.9 (6.4-8.2) g/dL Albumin 3.2 L (3.4-5.0) g/dL Globulin 3.7 g/dL Albumin/Globulin Ratio 0.9 Urine Color Lt. yellow (YELLOW) Urine Clarity Clear (CLEAR) Urine pH 6.0 (5.0-9.0) Ur Specific [place] <=1.005 A (1.005-1.025) Urine Protein Trace (NEG/TRACE) mg/dL Urine Glucose (UA) Negative (NEGATIVE) mg/dL Urine Ketones Negative (NEGATIVE) mg/dL Urine Occult Blood Negative (NEGATIVE) Urine Nitrite Negative (NEGATIVE) Urine Bilirubin Negative (NEGATIVE) Urine Urobilinogen 0.2 (0.2-1.0) EU/dL Ur Leukocyte Esterase Moderate A (NEGATIVE) Urine RBC 0-2 (0-2) #/HPF Urine WBC 5-10 A (NONE SEEN) #/HPF Ur Squamous Epith Cells Moderate A (NONE/RARE) #/LPF Urine Crystals None seen (None Seen) #/HPF Urine Bacteria Small A (NONE SEEN) #/HPF Urine Casts None seen (NONE SEEN) #/LPF Urine Mucus None seen (NONE SEEN) Ur Culture Indicated? Yes-[facility] Imaging Data CT scan - head: Attestation: I have reviewed the pertinent imaging results. Radiologist's impression: ITS Impressions Chest X-Ray 02/05/25 16:58 IMPRESSION: No acute process. Impression dictated by: Blake Hickey M.D. 02/05/2025 5:45 PM Dictation Location: [employer] Electronically authenticated by: [id number] Y Date: 02/05/2025 17:[address] 02/05/25 16:58 IMPRESSION: No acute findings. Impression dictated by: Blake Hickey M.D. 02/05/2025 5:41 PM Dictation Location: [employer] Electronically authenticated by: [id number] Y Date: 02/05/2025 17:41 ECG Data Attestation: ?I have reviewed the pertinent ECG results. (EKG was reviewed by the attending physician. It showed sinus rhythm at a rate of 84. No acute ST segment changes. ) Interpretation: Measurements Intervals Bearden Rate: 84 P: 51 MT: 144 QRS: 11 QRSD: 80 T: 45 QT: 366 QTc: 407 Interpretive Statements 1100 Sinus rhythm 9110 normal ECG No previous ECG available for comparison Discharge Plan Discharge Chief Complaint: Weakness Clinical Impression: Dizziness, UTI (urinary tract infection) Patient Disposition: Home, Self-Care Time of Disposition Decision: 17:52 Condition: Good Mode of Transportation: Private Vehicle Prescriptions / Home Meds: New cephalexin 500 mg capsule 500 mg PO BID 5 Days Qty: 10 0RF No Action losartan 50 mg tablet 50 mg PO QDAY carbidopa-levodopa 25-100 mg tablet 0.5 tab PO TID hydrochlorothiazide 12.5 mg tablet 12.5 mg PO DAILY carvedilol 12.5 mg tablet 12.5 mg PO BID Print Language: Maori Instructions: Urinary Tract Infection in Women (ED), Dizziness (ED) Additional Instructions: Return to the ED for worsening symptoms. Follow up with your primary care provider for a recheck, further evaluation and treatment. Referrals: Rosita Schaffer NP [Primary Care Provider, Family Practice] - 1 week Discharge Date/Time: 02/05/25 18:14
--- OUTSIDE RECORDS SUMMARY | 2025-02-05 15:47 | XMS_ITS | Encounter Summary ---
Author Organization [facility] Address [address] [place] [address] Care Team Providers Care Boot Trimmer Name Role Phone Rosita Schaffer EVENT COORDINATOR MARKETING AND SALES Unavailable [phone] Renato Friedman MD Primary Care Provider [phone] Unallocated, Tatiana Provider Primary Care Provi raimundo Renato Friedman MD Primary Care Provider [phone] Rusty Hu DO Unavailable [phone] Mary Olivia EVENT COORDINATOR MARKETING AND SALES Unavailable Unavailable Reason for Visit * Reason Comments Med Refill Encounter Details Date Type Department Care Team (Late st Contact Info) Description 03/20/2024 Refill [facility] [address] [place] [address] Rosita Schaffer, EVENT COORDINATOR MARKETING AND SALES [address] [place] [place] [id number] Primary hypertension Social History Tobacco Use Types Packs/Day Years Used Date Smoking Tobacco: Never Alcohol Use Standard Drinks/Week Comments Never 0 (1 standard drink = 0.6 oz pure alcohol) caffeine intake: 2-3 cups per day Comments Unknown Sex and Gender Information Value Date Recorded Sex Assigned at Not on file Legal Sex Female 11:02 PM EDT Gender Identity Not on file Sexual Orientation Not on file documented as of this encounter Miscellaneous Notes * Telephone Encounter - Ana M Cook MA - 03/21/2024 10:21 AM EDT TAMEKA PADILLA [facility] called letting us know that pt is needing a refill on her losartan (Cozaar) 50 MG tablet (), carvedilol (Coreg) 12.5 MG tablet (), and hydroCHLOROthiazide (HYDRODiuril) 12.5 MG tablet () to send to her [facility] [place] documented in this encounter Plan of Treatment Upcoming Encounters Date Type Department Care Team (Late st Contact Info) Description 02/14/2025 2:10 PM EDT Procedure Visit [facility] [address] [facility] [address] [place] [address] Ray Brewer DPM [address] [facility] [address] [place] [address] documented as of this encounter Visit Diagnoses Diagnosis Primary hypertension Unspecified essential hypertension documented in this encounter Care Teams Boot Trimmer Relationship Specialty Start Date End Date Renato Friedman MD PCP - General Family Medicine 07/25/23 03/20/24 Unallocated, Tatiana Sanchez MD [address] [place] [address] PCP - General Family Medicine 03/21/24 04/04/24 Renato Friedman MD PCP - General Family Medicine 04/05/24 Rosita Schaffer NP Referring Physician Nurse Practitioner 12/28/22 Rusty Hu DO [address] [place] [address] Referring Physician Neurology 04/09/24 Mary Olivia NP [address] [facility] [address] [place] [address] Nurse Practitioner Neurology 04/09/24 documented as of this encounter
--- OUTSIDE RECORDS SUMMARY | 2025-02-05 15:47 | XMS_ITS | Clinical Summary ---
Author Organization [employer] [facility] Address [id number] [place] [address] Care Team Providers Care Flatbed Company Driver Name Role Phone Debra De León MOTOR SCOOTER REPAIRER-MASON HELPER Primary Care Provider Allergies No known active allergies Medications * This document contains information received from the source organization and may not represent a complete record from that organization. carvedilol (COREG) 12.5 mg tablet Take 12.5 mg by mouth 2 (two) times a day with meals. Active hydroCHLOROthiaz aroldo (HYDRODIURIL) 25 mg tablet Take 25 mg by mouth daily. Active carbidopa-levodo pa (SINEMET) 25-100 mg per tablet Take 1 tablet by mouth 3 (three) times a day. Active losartan (COZAAR) 25 mg tablet Take 1 tablet (25 mg total) by mouth in the morning. Active Active Problems Problem Noted Date Diagnosed Date Bipolar affective disorder in remission 09/20/19 18 Adjustment disorder with anxiety 09/19/2017 Borderline personality disorder 09/19/2017 Family History Medical History Relation Name Comments Alcohol abuse Father Depression Mother Suicide Attempts Mother Relation Name Status Comments Father Mother Social History Tobacco Use Types Packs/Day Years Used Date Smoking Tobacco: Never Smokeless Tobacco: Never Alcohol Use Standard Drinks/Week Comments No 0 (1 standard drink = 0.6 oz pur e alcohol) Childcare Answer Date Recorded Childcare Unknown 11/13/2018 Employment Answer Date Recorded Employment Unknown 11/13/2018 Hunger Screening Answer Date Recorded Within the past 12 months we worried whether our food would run out before we got money to buy more. Never True 03/02/2023 Within the past 12 months th e food we bought just didn't last and we didn't have money to get more. Never True 03/02/2023 Purpose - Life Answer Date Recorded Purpose and direction in life Unknown Comments Unknown Sex and Gender Information Value Date Recorded Sex Assigned at Not on file Legal Sex Female 11:40 AM EDT Gender Identity Not on file Sexual Orientation Not on file Plan of Treatment Health Maintenance Due Date Last Done Comments Depression Screening 1957 Tobacco Screening 1957 DTaP,Tdap and Td Vaccines (1 - Tdap) 1966 Zoster (Shingles) Vaccine (1 of 2) 1997 Fall Risk Screening 2012 COVID-19 Vaccine (2023-2 5 season) 2024 04/03/2022, 01/23/2022, 04/14/2021, Additional history exists Influenza Vaccine 02/04/2025 04/13/2022, , 07/06/2017, Additional history exists Medical Devices Not on file Insurance MEDICAID [place] [employer] MEDICARE Care Teams Flatbed Company Driver Relationship Specialty Start Date End Date Debra De León APRN-MASON HELPER PCP - General Nurse Practitioner 02/23/19
--- OUTSIDE RECORDS SUMMARY | 2025-02-05 15:47 | XMS_ITS | Encounter Summary ---
Author Organization [facility] Address [address] [place] [address] Care Team Providers Care Rn Digestive Name Role Phone Rosita Schaffer RADAR TECHNICIAN Unavailable [phone] Renato Friedman MD Primary Care Provider [phone] Unallocated, Tatiana Provider Primary Care Provi raimundo Renato Friedman MD Primary Care Provider [phone] Rusty Hu DO Unavailable [phone] Mary Olivia RADAR TECHNICIAN Unavailable Unavailable Reason for Visit * Reason Comments Med Refill Encounter Details Date Type Department Care Team (Late st Contact Info) Description 03/05/[address] [facility] [address] [place] [address] Rosita Schaffer, RADAR TECHNICIAN [address] [place] [address] Primary hypertension ; Vitamin D deficiency Social History Tobacco Use Types Packs/Day Years Used Date Smoking Tobacco: Never Alcohol Use Standard Drinks/Week Comments Not Asked 0 (1 standard drink = 0.6 oz pure alcohol) caffeine intake: 2-3 cups per day Comments Unknown Sex and Gender Information Value Date Recorded Sex Assigned at Not on file Legal Sex Female 11:02 PM EDT Gender Identity Not on file Sexual Orientation Not on file documented as of this encounter Plan of Treatment Upcoming Encounters Date Type Department Care Team (Late st Contact Info) Description 02/14/2025 2:10 PM EDT Procedure Visit [facility] [address] [place] [address] Ray Brewer, DPElissa [address] [facility] 5 [place], [place] [id number] documented as of this encounter Visit Diagnoses Diagnosis Primary hypertension Unspecified essential hypertension Vitamin D deficiency documented in this encounter Care Teams Rn Digestive Relationship Specialty Start Date End Date Renato Friedman MD PCP - General Family Medicine 07/25/23 03/20/24 Unallocated, Noms MD Daniel [address] [place] [address] PCP - General Family Medicine 03/21/24 04/04/24 Renato Friedman MD PCP - General Family Medicine 04/05/24 Rosita Schaffer NP Referring Physician Nurse Practitioner 12/28/22 Rusty Hu DO [address] [place] [address] Referring Physician Neurology 04/09/24 Mary Olivia NP [address] [place] [address] Nurse Practitioner Neurology 04/09/24 documented as of this encounter
--- OUTSIDE RECORDS SUMMARY | 2025-02-05 15:47 | XMS_ITS | Encounter Summary ---
Author Organization [facility] Address [address] [place] [address] Care Team Providers Care Regional Sales Trainer Name Role Phone Rosita Schaffer STEEL BARREL REAMER Unavailable Renato Friedman MD Primary Care Provider [phone] Unallocated, Tatiana Provider Primary Care Provi raimundo Renato Friedman MD Primary Care Provider [phone] Rusty Hu DO Unavailable [phone] Mary Olivia STEEL BARREL REAMER Unavailable Unavailable Reason for Visit * Reason Comments Med Refill Encounter Details Date Type Department Care Team (Late st Contact Info) Description 02/14/2024 Refill [facility] [address] [place] [address] Rosita Schaffer, STEEL BARREL REAMER [address] [place] [address] Iron deficiency anemia, unspecified iron deficiency anemia type Social History Tobacco Use Types Packs/Day Years [...] EDT Procedure Visit [facility] [address] [facility] [address] [place] [address] Ray Brewer, LETICIA [address] [facility] [address] [place] [address] documented as of this encounter Visit Diagnoses Diagnosis Iron deficiency anemia, unspecified iron deficiency anemia type documented in this encounter Care Teams Regional Sales Trainer Relationship Specialty Start Date End Date Renato Friedman MD PCP - General Family Medicine 07/25/23 03/20/24 Unallocated, Tatiana Sanchez MD [address] [facility] [place] [address] PCP - General Family Medicine 03/21/24 04/04/24 Renato Friedman MD PCP - General Family Medicine 04/05/24 Rosita Schaffer NP Referring Physician Nurse Practitioner 12/28/22 Rusty Hu DO [address] [address] Referring Physician Neurology 04/09/24 Mary Olivia NP [address] [address] Nurse Practitioner Neurology 04/09/24 documented as of this encounter
--- OUTSIDE RECORDS SUMMARY | 2025-02-05 15:47 | XMS_ITS | Encounter Summary ---
Author Organization [facility] Address [address] [place] [address] Care Team Providers Care Accounting Consultant Name Role Phone Sary Holt MD Primary Care Provider [phone] Rosita Schaffer CNP Primary Care Provider [phone] Source Comments In the event this information is protected by the Federal Confidentiality of Alcohol and Drug AbusePatient Records regulations: The Federal rules restrict any use of the information to criminally investigate or prosecute any alcohol or drug abuse patient.[facility] Encounter Details Date Type Department Care Team (Late st Contact Info) Description 01/22/2022 Abstract Hematology/Oncology [address] [place] [address] Joey Cook MD [address] [place] [address] [place] [address] Social History Tobacco Use Types Packs/Day Years Used Date Smoking Tobacco: Never Smokeless Tobacco: Never Alcohol Use Standard Drinks/Week Comments No 0 (1 standard drink = 0.6 oz pur e alcohol) Area Deprivation Index Answer Date Cyrus rded National Score (1-100), lower number is lower ri sk 66 01/25/2022 State Score (1-10), lower number is lower risk N ot on file 01/25/2022 Data from: https://www.neighborhoodatlas.[facility]/. Last address used for calculation [address] 01/25/2022 Comments Unknown Sex and Gender Information Value Date Recorded Sex Assigned at Not on file Legal Sex Female 11:40 AM EDT Gender Identity Not on file Sexual Orientation Not on file COVID-19 Exposure Response Date Recorded In the last 10 days, have yo u been in contact with someone who was confirmed or suspected to have Coronavirus/COVID-19? No / Unsure 01/25/2022 1:50 PM EDT documented as of this encounter Functional Status * Are you deaf or do you have serious difficulty hearing? Answer Date of Assessment Author No 10/16/2013 11:48 AM EDT Syeda Hudson LPN * Are you blind or do you have serious difficulty seeing, even when wearing glasses? Answer Date of Assessment Author No 10/16/2013 11:48 AM EDT Syeda Hudson LPN * Do you have serious difficulty walking or climbing stairs? Answer Date of Assessment Author No 10/16/2013 11:48 AM EDT Syeda Hudson LPN * Do you have difficulty dressing or bathing? Answer Date of Assessment Author No 10/16/2013 11:48 AM EDT Syeda Hudson LPN * Because of a physical, mental, or emotional condition, do you have difficulty doing errands alone such as visiting a doctor's office or shopping? Answer Date of Assessment Author No 10/16/2013 11:48 AM EDT Syeda Hudson LPN documented as of this encounter Mental Status * Because of a physical, mental, or emotional condition, do you have serious difficulty concentrating, remembering, or making decisions? Answer Entry Date Author No 10/16/2013 11:48 AM Syeda Phelps LPN documented in this encounter Plan of Treatment Not on file documented as of this encounter Visit Diagnoses Not on filedocumented in this encounter Care Teams Accounting Consultant Relationship Specialty Start Date End Date Sary Holt MD [address] [place] [address] PCP - General Family Medicine 09/27/13 05/10/24 Rosita Schaffer, PATENT PARALEGAL [address] [address] PCP - General Family Medicine 05/11/24 documented as of this encounter
--- OUTSIDE RECORDS SUMMARY | 2025-02-05 15:47 | XMS_ITS | Encounter Summary ---
Author Organization [facility] Address [address] [place] [address] Care Team Providers Care Bed Machine Operator Name Role Phone Rosita Schaffer DEPUTY CHIEF MAGISTRATE Unavailable [phone] Renato Friedman MD Primary Care Provider [phone] Unallocated, Megan Provider Primary Care Provi raimundo Renato Friedman MD Primary Care Provider [phone] Rusty Hu DO Unavailable [phone] Mary Olivia DEPUTY CHIEF MAGISTRATE Unavailable Unavailable Reason for Visit * Reason Comments Med Refill Encounter Details Date Type Department Care Team (Late st Contact Info) Description 10/09/2023 Refill [facility] [place] [facility] [address] [place] [address] Rosita Schaffer, DEPUTY CHIEF MAGISTRATE [address] [place] [address] Primary hypertension Social History Tobacco Use Types [...] Description 02/14/2025 2:10 PM EDT Procedure Visit [facility] [address] [place] [address] Ray Brewer, DPM 3[address] [facility] 5 [place] [address] documented as of this encounter Visit Diagnoses Diagnosis Primary hypertension Unspecified essential hypertension documented in this encounter Care Teams Bed Machine Operator Relationship Specialty Start Date End Date Renato Friedman MD PCP - General Family Medicine 07/25/23 03/20/24 Unallocated, Noms MD [address] [place] [address] PCP - General Family Medicine 03/21/24 04/04/24 Renato Friedman MD PCP - General Family Medicine 04/05/24 Rosita Schaffer NP Referring Physician Nurse Practitioner 12/28/22 Rusty Hu DO [address] [place] [address] Referring Physician Neurology 04/09/24 Mary Olivia NP [address] [address] Nurse Practitioner Neurology 04/09/24 documented as of this encounter
--- OUTSIDE RECORDS SUMMARY | 2025-02-05 15:47 | XMS_ITS | Encounter Summary ---
Author Organization [facility] Address [address] [place] [address] Care Team Providers Care Banquet Supervisor Name Role Phone Rosita Schaffer PACKAGING LINE OPERATOR Unavailable [phone] Renato Friedman MD Primary Care Provider [phone] Unallocated, Tatiana Provider Primary Care Provi raimundo Renato Friedman MD Primary Care Provider [phone] Rusty Hu DO Unavailable [phone] Mary Olivia PACKAGING LINE OPERATOR Unavailable Unavailable Reason for Visit * Reason Comments Med Refill Encounter Details Date Type Department Care Team (Late st Contact Info) Description 02/10/2024 Refill [facility] [address] [place] [address] Rosita Schaffer, PACKAGING LINE OPERATOR [address] [place] [address] Primary hypertension ; Vitamin D deficiency Social [...] [facility] [address] [place] [address] Ray Brewer, DPElissa 3006 [facility] 5 [place], [place] [id number] documented as of this encounter Visit Diagnoses Diagnosis Primary hypertension Unspecified essential hypertension Vitamin D deficiency documented in this encounter Care Teams Banquet Supervisor Relationship Specialty Start Date End Date Renato Friedman MD PCP - General Family Medicine 07/25/23 03/20/24 Unallocated, Noms MD Daniel [address] [place] [address] PCP - General Family Medicine 03/21/24 04/04/24 Renato Friedman MD PCP - General Family Medicine 04/05/24 Rosita Schaffer NP Referring Physician Nurse Practitioner 12/28/22 Rusty Hu DO [address] [place] [address] Referring Physician Neurology 04/09/24 Mary Olivia NP [address] [place] [address] Nurse Practitioner Neurology 04/09/24 documented as of this encounter
--- OUTSIDE RECORDS SUMMARY | 2025-02-05 15:47 | XMS_ITS | Encounter Summary ---
Author Organization [facility] Address [address] [place] [address] Care Team Providers Care Hydrostatic Tubing Tester Name Role Phone Rosita Schaffer WASHERETTE MACHINE OPERATOR Unavailable [phone] Renato Friedman MD Primary Care Provider [phone] Unallocated, Noms Provider Primary Care Provi raimundo Renato Friedman MD Primary Care Provider [phone] Rusty Hu DO Unavailable [phone] Mary Olivia WASHERETTE MACHINE OPERATOR Unavailable Unavailable Encounter Details Date Type Department Care Team (Late st Contact Info) Description 01/25/2024 Orders Only [facility] [address] [place] [address] Rosita Schaffer, WASHERETTE MACHINE OPERATOR [address] [place] [address] Social History Tobacco Use Types Packs/Day Years [...] [facility] [address] [place] [id number] Ray Brewer, LETICIA [address] [address] documented as of this encounter Procedures Procedure Name Priority Date/Time Associated Diagnosis Comments SCANNED LABS Routine 01/25/2024 6:37 PM EDT XR CHEST 1 VIEW Routine 01/25/2024 3:09 PM EDT documented in this encounter Results * SCANNED LABS (01/25/2024 6:37 PM EDT) us Rosita Schaffer WASHERETTE MACHINE OPERATOR LAB CHG PERFORMABLES Final Resu lt * XR chest 1 view (01/25/2024 3:09 PM EDT) Anatomical Region Laterality Modality Chest Radiographic Christina ging us Rosita Schaffer WASHERETTE MACHINE OPERATOR IMG XR PROCEDURES Final Result documented in this encounter Visit Diagnoses Not on filedocumented in this encounter Care Teams Hydrostatic Tubing Tester Relationship Specialty Start Date End Date Renato Friedman MD PCP - General Family Medicine 07/25/23 03/20/24 Unallocated, Noms MD [address] [place] [address] PCP - General Family Medicine 03/21/24 04/04/24 Renato Friedman MD PCP - General Family Medicine 04/05/24 Rosita Schaffer NP Referring Physician Nurse Practitioner 12/28/22 Rusty Hu DO [address] [place] [address] Referring Physician Neurology 04/09/24 Mary Olivia NP [address] [facility] [address] [place] [address] Nurse Practitioner Neurology 04/09/24 documented as of this encounter
--- OUTSIDE RECORDS SUMMARY | 2025-02-05 15:47 | XMS_ITS | Encounter Summary ---
Author Organization [facility] Address [address] [facility] [place] [address] Care Team Providers Care Prison Keeper Name Role Phone Renato Friedman MD Primary Care Provider [phone] TECHNICIAN Unavailable [phone] Renato Friedman MD Primary Care Provider [phone] Unallocated, Noms Provider Primary Care Provi raimundo Renato Friedman MD Primary Care Provider [phone] Rusty Hu DO Unavailable [phone] Mary Olivia NP Unavailable Unavailable Reason for Visit * Reason Comments Med Refill Encounter Details Date Type Department Care Team (Late st Contact Info) Description 07/09/2023 Refill [facility] [address] [place] [address] Rosita Schaffer NP [address] [facility] [place] [address] Anemia, unspecified; Anemia Social History Tobacco Use Types Packs/Day Years Used Date Smoking Tobacco: Never Assessed Comments Unknown Sex and Gender Information Value Date Recorded Sex Assigned at Not on file Legal Sex Female 11:02 PM EDT Gender Identity Not on file Sexual Orientation Not on file documented as of this encounter Miscellaneous Notes * Telephone Encounter - Rosita Schaffer NP - 07/12/2023 6:23 PM EST Please call pt for fu appt [place] documented in this encounter Plan of Treatment Upcoming Encounters Date Type Department Care Team (Late st Contact Info) Description 02/14/2025 2:10 PM EDT Procedure Visit [facility] [address] [facility] [address] [place] [address] Ray Brewer, DPElissa 3006 [facility] 5 [place] [address] documented as of this encounter Visit Diagnoses Diagnosis Anemia, unspecified Anemia Unspecified anemia documented in this encounter Care Teams Prison Keeper Relationship Specialty Start Date End Date Renato Friedman MD PCP - General Family Medicine 12/28/22 07/24/23 Renato Friedman MD PCP - General Family Medicine 07/25/23 03/20/24 Unallocated, Megan Sanchez MD [address] [place] [address] PCP - General Family Medicine 03/21/24 04/04/24 Renato Friedman MD PCP - General Family Medicine 04/05/24 Rosita Schaffer NP Referring Physician Nurse Practitioner 12/28/22 Rusty Hu DO [address] [place] [address] Referring Physician Neurology 04/09/24 Mary Olivia NP [address] [place] [address] Nurse Practitioner Neurology 04/09/24 documented as of this encounter
--- OUTSIDE RECORDS SUMMARY | 2025-02-05 15:47 | XMS_ITS | Encounter Summary ---
Author Organization [facility] Address [address] [place] [address] Care Team Providers Care Ergonomics Technician Name Role Phone Sary Holt MD Primary Care Provider [phone] Rosita Schaffer CNP Primary Care Provider [phone] Source Comments In the event this information is protected by the Federal Confidentiality of Alcohol and Drug AbusePatient Records regulations: The Federal rules restrict any use of the information to criminally investigate or prosecute any alcohol or drug abuse patient.[facility] Encounter Details Date Type Department Care Team (Latest Contact Info) Description 01/19/2022 H&P External-NonCCF Provider, JC Self Do not enter address information under generic External Provider. Social History Tobacco Use Types Packs/Day Years Used Date Smoking Tobacco: Never Smokeless Tobacco: Never Alcohol Use Standard Drinks/Week Comments No 0 (1 standard drink = 0.6 oz pur e alcohol) Comments Unknown Sex and Gender Information Value Date Recorded Sex Assigned at Not on file Legal Sex Female 11:40 AM EDT Gender Identity Not on file Sexual Orientation Not on file documented as of this encounter Functional Status * Are you deaf or do you have serious difficulty hearing? Answer Date of Assessment Author No 10/16/2013 11:48 AM EDT Syeda Hudson LPN * Are you blind or do you have serious difficulty seeing, even when wearing glasses? Answer Date of Assessment Author No 10/16/2013 11:48 AM Syeda Phelps LPN * Do you have serious difficulty walking or climbing stairs? Answer Date of Assessment Author No 10/16/2013 11:48 AM Syeda Phelps LPN * Do you have difficulty dressing or bathing? Answer Date of Assessment Author No 10/16/2013 11:48 AM Syeda Phelps LPN * Because of a physical, mental, or emotional condition, do you have difficulty doing errands alone such as visiting a doctor's office or shopping? Answer Date of Assessment Author No 10/16/2013 11:48 AM Syeda Phelps LPN documented as of this encounter Mental Status * Because of a physical, mental, or emotional condition, do you have serious difficulty concentrating, remembering, or making decisions? Answer Entry Date Author No 10/16/2013 11:48 AM Syeda Phelps LPN documented in this encounter Plan of Treatment Not on file documented as of this encounter Visit Diagnoses Not on filedocumented in this encounter Care Teams Ergonomics Technician Relationship Specialty Start Date End Date Sary Holt MD [address] [place] [address] PCP - General Family Medicine 09/27/13 05/10/24 Rosita Schaffer, TESTER WAFER SUBSTRATE [address] [place] [address] PCP - General Family Medicine 05/11/24 documented as of this encounter
--- OUTSIDE RECORDS SUMMARY | 2025-02-05 15:47 | XMS_ITS | Encounter Summary ---
Author Organization [facility] Address [address] [place] [address] Care Team Providers Care Director Of Healthcare Systems Name Role Phone Rosita Schaffer PRACTICE NURSE Unavailable [phone] Renato Friedman MD Primary Care Provider [phone] Unallocated, Tatiana Provider Primary Care Provi raimundo Renato Friedman MD Primary Care Provider [phone] Rusty Hu DO Unavailable [phone] Mary Olivia NP Unavailable Unavailable Reason for Visit * Reason Comments Med Refill Encounter Details Date Type Department Care Team (Late st Contact Info) Description 10/08/2023 Refill [facility] [address] [place] [address] Rosita Schaffer NP [address] [facility] [place] [address] Primary hypertension ; Anemia, unspecified; Anemia Social History Tobacco Use [...] Telephone Encounter - Rosita Schaffer NP - 10/10/2023 2:41 PM EDT Needs an appt documented in this encounter Plan of Treatment Upcoming Encounters Date Type Department Care Team ([facility] st Contact Info) Description 02/14/2025 2:10 PM EDT Procedure Visit [facility] [address] [place] [address] Ray Brewer, DPElissa 3006 [facility] [place] [address] documented as of this encounter Visit Diagnoses Diagnosis Primary hypertension Unspecified essential hypertension Anemia, unspecified Anemia Unspecified anemia documented in this encounter Care Teams Director Of Healthcare Systems Relationship Specialty Start Date End Date Renato Friedman MD PCP - General Family Medicine 07/25/23 03/20/24 Unallocated, Tatiana Sanchez MD [address] [facility] [address] PCP - General Family Medicine 03/21/24 04/04/24 Renato Friedman MD PCP - General Family Medicine 04/05/24 Rosita Schaffer NP Referring Physician Nurse Practitioner 12/28/22 Rusty Hu DO [address] [place] [address] Referring Physician Neurology 04/09/24 Mary Olivia NP [address] [place] [address] Nurse Practitioner Neurology 04/09/24 documented as of this encounter
--- OUTSIDE RECORDS SUMMARY | 2025-02-05 15:47 | XMS_ITS | Clinical Summary ---
Author Organization [facility] Address [address] [facility] [place] [address] Care Team Providers Care Trouble Dispatcher Name Role Phone Rosita Schaffer BOAT GARNISHER Unavailable [phone] Renato Friedman MD Primary Care Provider [phone] Rusty Hu DO Unavailable [phone] Mary Olivia NP Unavailable Unavailable Allergies No known active allergies Medications cholecalciferol (Vitamin D-3) 25 MCG (1000 UT) capsule Take 1,000 Units by mouth Daily Active carbidopa-levodop a (Sinemet) 25-100 MG tabletIndications :Parkinson's disease without dyskinesia, unspecified whether manifestations fluctuate (HCC) TAKE 1 TABLET BY MOUTH THREE TIMES A DAY (AT 7:00 AM, 11:00 AM, AND 3:00 PM) 270 tablet 1 05/17/20 24 Active losartan (Cozaar) 50 MG tabletIndications :Primary hypertension Take 1 tablet (50 mg) by mouth Daily 90 tablet 01/15/20 25 025 Active carvedilol (Coreg) 12.5 MG tabletIndications :Primary hypertension Take 1 tablet (12.5 mg) by mouth in the morning and 1 tablet (12.5 mg) before bedtime. 180 tablet 01/15/20 25 025 Active hydroCHLOROthiazi de (HYDRODiuril) 12.5 MG tabletIndications :Primary hypertension Take 1 tablet (12.5 mg) by mouth Daily 90 tablet 01/20/20 25 025 Active hydroCHLOROthiazi de (HYDRODiuril) 12.5 MG tabletIndications :Primary hypertension Take 1 tablet (12.5 mg) by mouth Daily 90 tablet 10/02/19 25 025 Discontinued losartan (Cozaar) 50 MG tabletIndications :Primary hypertension Take 1 tablet (50 mg) by mouth Daily 90 tablet 10/02/19 25 025 Discontinued(Re order) carvedilol (Coreg) 12.5 MG tabletIndications :Primary hypertension Take 1 tablet (12.5 mg) by mouth in the morning and 1 tablet (12.5 mg) before bedtime. 180 tablet 10/02/19 025 Discontinued(Re order) Active Problems Problem Noted Date Diagnosed Date Needs flu shot 03/27/2024 Tremor 03/08/2024 History of fall 03/08/2024 Parkinson's disease 03/08/2024 Overview (03/08/2024): It is my impression the patient has Parkinson's disease. The patient also has a family history of Parkinson's disease in her sister, whom she is a caregiver for. . PLAN: Start sinemet 25/100 IR 1/2 tab po TID at 8am, noon and 4pm Assessment & Plan (03/27/2024 3:36 PM EDT): Suspect her sxs may be parkinson's related, and we will check labs, and then see if any abnormals, but will need to get in with neurology Vitamin D deficiency 11/15/2023 Abnormal PET scan of colon 10/13/2023 DDD (degenerative disc disease), lumbar 10/13/19 24 Edema 10/13/2023 GERD (gastroesophageal reflux disease) 4 History of malignant neoplasm of colon 4 Iron deficiency anemia 10/13/2023 Obesity 10/13/2023 Peripheral venous insufficiency 10/13/2023 Spondylolisthesis of lumbar region 10/13/2023 Thyroid nodule 10/13/2023 Other fatigue 10/13/2023 Assessment & Plan (03/27/2024 3:37 PM EDT): Check labs Anemia, unspecified 07/12/2023 Primary hypertension 05/12/2023 Assessment & Plan (03/27/2024 3:36 PM EDT): Needs to restart her meds Check labs Fu in 4 weeks to see if feeling better Adjustment disorder with anxiety 09/19/2017 Bipolar disorder, currently in remission, most recent episode unspecified 09/19/2017 Encounters Date Type Department Care Team Description 01/18/2025 Refill [facility] [address] [place] [address] Rosita Schaffer, INÉS Primary hypertension 01/05/2025 Refill [facility] [address] [place] [address] Rosita Schaffer, INÉS Primary hypertension from Last 3 Months Immunizations Immunization Administration Dates Next Due Influenza Whole 04/20/2010 Influenza, High-dose Seasona l, Quadrivalent, Preservative Free 02/28/2020 Influenza, Seasonal, Quadrivalent, Adjuvanted Influenza, injectable, quadrivalent 07/06/2017 Influenza, injectable, quadrivalent, preservativ e free 06/16/2023 Influenza, seasonal, injectable 05/01/2014 Influenza, trivalent, adjuvanted 03/27/2024 Pneumococcal Polysaccharide PPSV23 03/01/2022 SARS-COV-2 (COVID-19) vaccin e, mRNA, spike protein, LNP, PF, 50 mcg/0.5 mL 03/15/2023 Family History Medical History Relation Name Comments Bone cancer Father Lung cancer Father Prostate cancer Father Alzheimer's disease Mother Parkinsonism Other Hyperlipidemia Sibling Hypertension Sibling Hypertension Sister Parkinsonism Sister Relation Name Status Comments Father Mother Other Sibling Sister Social History Tobacco Use Types Packs/Day Years Used Date Smoking Tobacco: Never Tobacco Cessation:Counseling Given: Yes Alcohol Use Standard Drinks/Week Comments Never 0 (1 standard drink = 0.6 oz pure alcohol) caffeine intake: 2-3 cups per day Comments Unknown Sex and Gender Information Value Date Recorded Sex Assigned at Not on file Legal Sex Female 11:02 PM EDT Gender Identity Not on file Sexual Orientation Not on file Last Filed Vital Signs Vital Sign Reading Time Taken Comments Blood Pressure 136/82 04/17/2024 9:52 AM EST Pulse 82 04/17/2024 9:52 AM EST Temperature 36.9 C (98.5 F) 03/27/2024 2:39 PM EDT Respiratory Rate 18 09/27/2024 1:59 PM EDT Oxygen Saturation 98% 04/17/2024 9:52 AM EST Inhaled Oxygen Concentration - - Weight 83 kg (183 lb) 09/27/2024 1:59 PM EDT Height 162.6 cm (5' 4 ) 09/27/2024 1:59 PM EDT Body Mass Index 31.41 09/27/2024 1:59 PM EDT Plan of Treatment Upcoming Encounters Date Type Department Care Team ([facility] st Contact Info) Description 02/14/2025 2:10 PM EDT Procedure Visit [facility] [address] [facility] [address] [place] [address] Ray Brewer, DPElissa 3001 [facility] 5 [place] [address] Health Maintenance Due Date Last Done Comments Pneumococcal Vaccine: 65+ Ye ars (2 of 2 - PCV) 03/01/2023 03/01/2022 Influenza Vaccine (#1) 2025 4, 06/16/2023, 04/13/2022, Additional history exists Colonoscopy Discontinued 03/10/2022, 03/10/2007 Colorectal Cancer Screening Discontinued CT Colonography Discontinued FIT-DNA Discontinued FIT Discontinued FOBT Discontinued Sigmoidoscopy Discontinued Insurance [facility] MEDICARE ADVANTAGE Care Teams Trouble Dispatcher Relationship Specialty Start Date End Date Renato Friedman MD PCP - General Family Medicine 04/05/24 Rosita Schaffer NP Referring Physician Nurse Practitioner 12/28/22 Rusty Hu DO [address] [place] [address] Referring Physician Neurology 04/09/24 Mary Olivia NP [address] [address] Nurse Practitioner Neurology 04/09/24
--- OUTSIDE RECORDS SUMMARY | 2025-02-05 15:47 | XMS_ITS | Clinical Summary ---
Author Organization [facility] Address [address] [place], [place] [id number] Care Team Providers Care Stranding Machine Operator Name Role Phone Rosita Schaffer CNP Primary Care Provider [phone] Allergies Active Allergy Reactions Criticality Noted Date Comments Bee Pollen Unknown 04/09/2024 Medications carvedilol (COREG) 12.5 mg tablet Take 1 tablet by mouth twice daily with meals. 180 tablet 3 5 Active hydrochlorothia zide (HYDRODIURIL, ESIDRIX) 25 mg tablet Take 1 tablet by mouth once daily. 90 tablet 3 5 Active losartan (COZAAR) 50 mg tablet Take 50 mg by mouth once daily. Active ferrous sulfate 325 mg (65 mg iron) tablet TAKE 1 TABLET BY MOUTH ONCE A DAY *MAY TURN STOOLS BLACK* 2 Active ergocalciferol, vitamin D2, (VITAMIN D2 ORAL) Take by mouth. Activ e carbidopa-levod opa (SINEMET 25-100) 25-100 mg per tablet Take 1 tablet by mouth three times a day (at 7:00 am, 11:00 am, and 3:00 pm) 4 Active Cholecalciferol , Vitamin D3, 25 mcg (1,000 unit) cap Take 1,000 Units by mouth. Active prednisoLONE acetate (PRED FORTE) 1 % ophthalmic suspension Use 1 Drop in the right eye as directed. Starting TOMORROW place one drop in operative eye four times a day. 4 Active prednisoLONE acetate (PRED FORTE) 1 % ophthalmic suspension Use 1 Drop in the left eye as directed. Starting TOMORROW place one drop in operative eye four times a day. Active Active Problems Problem Noted Date Diagnosed Date Examination following surgery 08/10/2024 Combined forms of age-related cataract of left e ye 08/10/2024 Degenerative retinal drusen of both eyes 025 Parkinson disease 05/11/2024 Assessment & Plan (05/11/2024 1:10 PM EST): Assessment: Controlled on sinmet +Tremors Follows with PCP Colon cancer 05/11/2024 Assessment & Plan (05/11/2024 1:14 PM EST): Assessment: s/p colectomy No known recurrence Other hyperlipidemia 05/11/2024 Assessment & Plan (05/11/2024 1:19 PM EST): Assessment: On Statin Follows with PCP Primary hypertension 05/25/2021 Assessment & Plan (05/11/2024 1:11 PM EST): Assessment: Stable on medication 161/90 in office today Follows with PCP Resolved Problems Problem Noted Date Diagnosed Date Resolved Date Tremor 03/08/2024 05/11/2024 GERD (gastroesophageal reflux disease) 10/13/2023 05/11/2024 Anemia, unspecified 07/12/2023 05/11/20 24 Bipolar affective disorder in remission 09/19/2017 05/11/2024 Assessment & Plan (05/11/2024 1:13 PM EST): Assessment: Borderline personality disorder 09/19/2017 05/11/2024 Immunizations Immunization Administration Dates Next Due COVID-19 original vaccine, f ull dose, monovalent (MODERNA) 01/23/2022,04/14/2021,08/27/2020,2020 influenza (HD-IIV4) vaccine, age 65+ yr, high dose, quadrivalent, PF (FLUZONE HIGH-DOSE) 02/28/2020 influenza (IIV3) vaccine, tr ivalent (AFLURIA, FLULAVAL, FLUVIRIN, FLUZONE) 05/01/2014 influenza (IIV4) vaccine, quadrivalent (AFLURIA, FLULAVAL, FLUZONE) 07/06/2017 influenza vaccine, whole virus 04/20/2010 Family History Medical History Relation Comments Cancer Father Bone Hypertension Father Lung Cancer Father Prostate Cancer Father Alzheimer's Disease Mother Hypertension Mother No Ocular Disease Other Hypertension Sister 3 Cancer Sister 4 melanoma Difficulty with anesthesia No Family History Relation Status Comments Father Mother Other Sister 1 Alive Sister 2 Alive Sister 3 Sister 4 Social History Tobacco Use Types Packs/Day Years Used Date Smoking Tobacco: Never Passive Smoke Exposure: Past Smokeless Tobacco: Never Tobacco Cessation:Counseling Given: Not Answered Alcohol Use Standard Drinks/Week Comments No 0 (1 standard drink = 0.6 oz pur e alcohol) Area Deprivation Index Answer Date Cyrus rded National Score (1-100), lowe r number is lower risk 73 04/04/2024 State Score (1-10), lower number is lower risk 6 04/04/2024 Data from: https://www.neighborhoodatlas.medicine.[facility]/ . Last address used for calculation [address] 04/04/2024 Comments No Sex and Gender Information Value Date Recorded Sex Assigned at Not on file Legal Sex Female 11:40 AM EDT Gender Identity Not on file Sexual Orientation Not on file Last Filed Vital Signs Vital Sign Reading Time Taken Comments Blood Pressure 135/80 08/14/2024 11:14 AM EDT Pulse 72 08/14/2024 11:14 AM EDT Temperature 36.1 C (97 F) 08/14/2024 11:12 AM EDT Respiratory Rate 16 08/14/2024 11:14 AM EDT Oxygen Saturation 98% 08/14/2024 11:14 AM EDT Inhaled Oxygen Concentration - - Weight 79 kg (174 lb 2.6 oz) 08/10/2024 10:38 AM EST Height 162.6 cm (5' 4 ) 08/10/2024 10:38 AM EST Body Mass Index 29.9 08/10/2024 10:38 AM EST Plan of Treatment Health Maintenance Due Date Last Done Comments Annual PCP Team Chronic Dise ase Visit 1963 Anxiety Screening 1965 Depression Screening 1965 Hepatitis C Screening 1965 DTaP,Tdap,Td Vaccine (1 - Tdap) 1966 Shingrix Vaccine (1 of 2) 1997 Bone Density Screening 2012 RSV Vaccine (1 - 1-dose 75+ series) 2022 Pneumococcal Vaccine: 50+ (2 of 2 - PCV) 03/01/2023 03/01/2022 Advance Directive Discussion 06/06/2024 Medicare Advantage Annual We llness Visit 06/06/2024 Diabetes Screening 01/25/2025 01/25/2022 Influenza Vaccine (#1) 2025 , 06/16/2023, 04/13/2022, Additional history exists Medical Devices Implanted Type Area Phlebotomist Medical Lab Assistant Device Identifier Shelf Expiration Date Model / Serial / Lot [id number] [employer] - [id number] Implanted:Qty : 1 on 05/21/2024 by Alfreda Avalos MD at [facility] Intraocular Lens Right: Eye [employer] 12/14/2027 [id number].20 5 / [id number] / [id number] [employer] - [id number] Implanted:Qty : 1 on 08/14/2024 by Alfreda Avalos MD at [facility] Intraocular Lens Left: Eye [employer] 04/24/2028 CC60WF.21 0 / [id number] / Procedures Procedure Name Priority Date/Time Associated Diagnosis Comments COMPREHENSIVE METABOLIC PANEL Routine 01/25/2022 2:51 PM EDT MGUS (monoclonal gammopathy of unknown significance) from Last 3 Months or Most Recently Relevant to Health Maintenance Results * (ABNORMAL) COMP METABOLIC PANEL (01/25/2022 2:51 PM EDT) Pathologist [facility] Protein, Total 6.8 6.3 - 8.0 g/dL 01/25/2022 3:15 PM EDT [facility] Albumin 4.1 3.9 - 4.9 g/dL 01/25/2022 3:15 PM EDT [facility] Calcium, Total 9.5 8.5 - 10.2 mg/dL 01/25/2022 3:15 PM EDT [facility] Bilirubin, Total 0.2 0.2 - 1.3 mg/dL 01/25/2022 3:15 PM EDT [facility] Alkaline Phosphatase 93 34 - 123 U/L 01/25/2022 3:15 PM EDT [facility] AST 14 13 - 35 U/L 01/25/2022 3:15 PM EDT [facility] ALT 11 7 - 38 U/L 01/25/2022 3:15 PM EDT [facility] Glucose 97 74 - 99 mg/dL 01/25/2022 3:15 PM T [facility] Comment: The [place] Diabetes Association (ADA) provides guidance for cutoff [...] Standards of Medical Care in Diabetes 2016, [place] Diabetes Association. Diabetes Care. 2016.39(Suppl 1). BUN 27(H) 7 - 21 mg/dL 01/25/2022 3:15 PM [facility] Creatinine 0.89 0.58 - 0.96 mg/dL 01/25/2022 3:15 PM T [facility] Sodium 141 136 - 144 mmol/L 01/25/2022 3:15 PM T [facility] Potassium 4.1 3.7 - 5.1 mmol/L 01/25/2022 3:15 PM EDT [facility] Chloride 104 97 - 105 mmol/L 01/25/2022 3:15 PM EDT [facility] CO2 28 22 - 30 mmol/L 01/25/2022 3:15 PM EDT [facility] Anion Gap 9 9 - 18 mmol/L 01/25/2022 3:15 PM EDT [facility] Estimated Glomerular Filtration Rate 68 >=60 mL/min/1.7 3m 01/25/2022 3:15 PM EDT [facility] Comment:Estimated Glomerular Filtration Rate (eGFR) is calculated using the 2020 CKD-EPI creatinine equation. This equation utilizes serum creatinine, sex, and age as parameters. The creatinine assay has traceable calibration to isotope dilution- mass spectrometry. Refer to KDIGO guidelines for clinical interpretation. In patients with unstable renal function, e.g. those with acute kidney injury, the eGFR may not accurately reflect actual GFR. Blood BLOOD SPECIMEN / Unknown Venipuncture / Unknown 01/25/2022 2:51 PM EDT 01/25/2022 2:51 PM EDT us Joey Cook MD LABORATORY Final Result [facility] [address] [place] [address] from Last 3 Months or Most Recently Relevant to Health Maintenance Insurance [place] Member Subscriber Plan / Payer (Ef fective 2022-Present) Name:Kate Garcia Relation to Subscriber:Self Name:Kate Garcia Payer ID:Not on file Group ID:Not on file Type:Medicaid Address: [address] Care Teams Stranding Machine Operator Relationship Specialty Start Date End Date Rosita Schaffer, DIGITAL WATCH ASSEMBLER [address] [place] [address] PCP - General Family Medicine 05/11/24
[2025-02-05 16:08] LABS: Hematocrit 33.1 % (36.0-48.0); Hemoglobin 10.8 g/dL (12.0-16.0); Immature Granulocytes Abs Auto 0.02 10^3/uL (0.00-0.03); Immature Granulocytes Pct Auto 0.3 % (0.0-0.5); Lymphocytes Absolute Auto 1.9 10^3/uL (1.2-3.8); Mean Corpuscular HGB Conc 32.6 g/dL (29.9-35.2); Mean Corpuscular Hemoglobin 27.1 pg (26.7-34.0); Mean Corpuscular Volume 83.0 fL (81.0-99.0); Platelet Count 194 10^3/uL (150-450); Red Blood Count 3.99 10^6/uL (4.20-5.40); White Blood Count 7.2 10^3/uL (4.0-11.0)
--- OUTSIDE RECORDS SUMMARY | 2025-02-05 16:08 | XMS_ITS | CCD ---
Author Organization [facility] Inform ion Partnership [facility] Care Team Providers Care Windows Administrator Name Role Phone Kaelyn Holt MD Primary Care Provider AICHTEDZ, ROSITA Emmie Primary Care Physician AICHHOLZ, PILLAR MAN ROSITA Consulting Unavailable AICHHOLZ, PILLAR MAN ROSITA Primary Care Unavailable AICHHOLZ, PILLAR MAN ROSITA Attending Unavailable AICHHOLZ, PILLAR MAN ROSITA Admitting Unavailable DR BIRGIT GERONIMO V Consulting Unavailable AICHHOLZ, PILLAR MAN ROSITA Primary Care Unavailable AICHHOLZ, PILLAR MAN ROSITA Attending Unavailable AICHHOLZ, PILLAR MAN ROSITA Admitting Unavailable AICHHOLZ, PILLAR MAN ROSITA Consulting Unavailable NILL, DR JAVED Consulting Unavailable AICHHOLZ, PILLAR MAN ROSITA Primary Care Unavailable NILL, DR JAVED Attending Unavailable NILL, DR JAVED Admitting Unavailable AICHHOLZ, PILLAR MAN ROSITA Consulting Unavailable MISCDR POWER Primary Care Unavailable AICHHOLZ, PILLAR MAN ROSITA Attending Unavailable AICHHOLZ, PILLAR MAN ROSITA Admitting Unavailable DR CARMEL RUIZ Consulting Unavailable AICHHOLZ, PILLAR MAN ROSITA Consulting Unavailable AICHHOLZ, PILLAR MAN ROSITA Primary Care Unavailable AICHHOLZ, PILLAR MAN ROSITA Attending Unavailable AICHHOLZ, PILLAR MAN ROSITA Admitting Unavailable AICHHOLZ, PILLAR MAN ROSITA Consulting Unavailable AICHHOLZ, PILLAR MAN ROSITA Primary Care Unavailable AICHHOLZ, PILLAR MAN ROSITA Attending Unavailable AICHHOLZ, PILLAR MAN ROSITA Admitting Unavailable DR BIRGIT GERONIMO V Consulting Unavailable AICHHOLZ, PILLAR MAN ROSITA Primary Care Unavailable AICHHOLZ, PILLAR MAN ROSITA Attending Unavailable AICHHOLZ, PILLAR MAN ROSITA Admitting Unavailable AICHHOLZ, PILLAR MAN ROSITA Consulting Unavailable NILL, DR JAVED Consulting Unavailable AICHHOLZ, PILLAR MAN ROSITA Primary Care Unavailable NILL, DR JAVED Attending Unavailable NILL, DR JAVED Admitting Unavailable DURAN, SUAD Consulting Unavailable CIELO THOMAS Consulting Unavailable AICHHOLZ, PILLAR MAN ROSITA Consulting Unavailable AICHHOLZ, PILLAR MAN ROSITA Primary Care Unavailable AICHHOLZ, PILLAR MAN ROSITA Attending Unavailable AICHHOLZ, PILLAR MAN ROSITA Admitting Unavailable ZIJULIANNA, DR CARMEL Bee Consulting Unavailable CIELO CERVANTES Consulting Unavailable [facility], DR POWER Primary Care Unavailable CIELO CERVANTES Attending Unavailable CIELO CERVANTES Admitting Unavailable WEST, DR BIRGIT Aaron Consulting Unavailable AICHHOLZ, PILLAR MAN ROSITA Primary Care Unavailable AICHHOLZ, PILLAR MAN ROSITA Attending Unavailable AICHHOLZ, PILLAR MAN ROSITA Admitting Unavailable AICHHOLZ, PILLAR MAN ROSITA Consulting Unavailable AICHHOLZ, PILLAR MAN ROSITA Consulting Unavailable AICHHOLZ, PILLAR MAN ROSITA Primary Care Unavailable AICHHOLZ, PILLAR MAN ROSITA Attending Unavailable AICHHOLZ, PILLAR MAN ROSITA Admitting Unavailable ZIJULIANNA, DR CARMEL Bee Consulting Unavailable WEST, DR BIRGIT Aaron Consulting Unavailable AICHHOLZ, PILLAR MAN ROSITA Primary Care Unavailable AICHHOLZ, PILLAR MAN ROSITA Attending Unavailable AICHHOLZ, PILLAR MAN ROSITA Admitting Unavailable AICHHOLZ, PILLAR MAN ROSITA Consulting Unavailable Tello DELGADO Attending Unavailable AICHHOLZ, ROSITA ROSITA J Referring Unavailabl e Tello DELGADO Attending Unavailable Tello DELGADO Attending Unavailable Tello DELGADO Attending Unavailable Aichholz SORTING MACHINE OPERATOR, Rosita Unavailable UnallocatMegan coles MD Provider Primary Care [facility] raimundo Kaelyn Holt MD Primary Care Provider [phone] Renato Friedman MD Primary Care Provider Rusty Hu DO Unavailable Mary Olivia NP Unavailable Aichholz Rosita BROWN Primary Care Provider [phone] ELTON AVALOS Referring Unavailable AICHHOLZ, ROSITA MARY JANE Primary Care Unavailable ELTON AVALOS Referring Unavailable KAELYN HOLT Primary Care Unavailable ELTON AVALOS Attending Unavailable KAELYN HOLT Primary Care Unavailable LIBAN GREER Attending Unavailable KAELYN HOTL Primary Care Unavailable AVALOS, ELTON Admitting Unavailable ELTON AVALOS Attending Unavailable ONELIA AVALOSA Referring Unavailable KAELYN HOLT Primary Care Unavailable JUICE GILLETTE Attending Unavailable ELTON AVALOS Referring Unavailable AICHCARMELLA, ROSITA MARY JANE Primary Care Unavailable TELLO BRADFORD Attending Unavailable AVALOS, ELTON Referring Unavailable AICHHOLZ, ROSITA MARY JANE Primary Care Unavailable TELLO BRADFORD Referring Unavailable AICHHOLMaty, ROSITA HINTON Primary Care Unavailable JUICE GILLETTE Attending Unavailable ELTON AVALOS Referring Unavailable AICHHOLMaty, ROSITA MARY JANE Primary Care Unavailable RAY DAY Attending Unavailable HERNESTO, ROSITA Attending Unavailable MARY OLIVIA Attending Unavailable Otf Hu DOmarcelloanais Unavailable [phone] Mary Olivia NP Unavailable Unavailable Allergies Allergy Classification Reported Allergen(s) Allergy Type Date of Onset Reaction(s) Facility (1 source) No Known Medication Allergies; Translations: [No Known Medication Allergies] Propensity to adverse reactions (disorder) [facility] Repository (11 sources) Bee pollen; Translations: [BEE POLLEN] Drug Allergy 4 Unknown [facility] Medications Current Medications Medication Drug Class(es) Dates Sig (Normalized) Sig (Original) benoxinate hydrochloride 4 mg/ml / fluorescein sodium 3 mg/ml ophthalmic solution (4 sources) Diagnostic Dye Start: 08-10-2024 End: 08-10-2024 fluorescein-benoxi zaria 0.3-0.4 % 1 Drop (FLURESS) Start: 04-09-2024 End: 04-10-2024 fluorescein-benoxinate 0.3-0 .4 % 1 Drop (FLURESS) Start: 04-04-2024 End: 04-04-2024 fluorescein-benoxinate 0.3-0 .4 % 1 Drop (FLURESS) carbidopa 25 mg / levodopa 100 mg oral tablet (20 sources) Aromatic Amino Acid Decarboxylation Inhibitor, Aromatic Amino Acid Start: 05-17-2024 take 1 tablet by mouth three times daily in the morning carbidopa-levodopa (Sinemet) 25-100 MG tablet Indications: Parkinson's disease without dyskinesia, unspecified whether manifestations fluctuate (HCC) TAKE 1 TABLET BY MOUTH THREE TIMES A DAY (AT 7:00 AM, 11:00 AM, AND 3:00 PM) 270 tablet 1 05/17/2024 Active Start: 02-13-2024 End: 04-17-2024 take 1 tablet by mouth three times daily in the morning carbidopa-levodopa (SINEMET 25-100) 25-100 mg per tablet Take 1 tablet by mouth three times a day (at 7:00 am, 11:00 am, and 3:00 pm) 04/17/2024 Active carvedilol 12.5 mg oral tablet (20 sources) alpha-Adrenergic Ricki, beta-Adrenergic Ricki Start: 10-01-2024 End: 04-14-2025 take 1 tablet by mouth in the morning carvedilol (Coreg) 12.5 MG tablet Indications: Primary hypertension Take 1 tablet (12.5 mg) by mouth in the morning and 1 tablet (12.5 mg) before bedtime. 180 tablet 01/14/2025 04/14/2025 Active Start: 10-22-2014 End: 06-25-2024 take 1 tablet by mouth in the morning carvedilol (Coreg) 12.5 MG tablet Indications: Primary hypertension (CMS/HCC) Take 1 tablet (12.5 mg) by mouth in the morning and 1 tablet (12.5 mg) before bedtime. 180 tablet 1 03/27/2024 Active Comment on above: Take 1 tablet by amanda twice daily with meals. cholecalciferol 0.025 mg oral capsule (19 sources) Vitamin D take 1 capsule by mouth once daily cholecalciferol (Vitamin D-3) 25 MCG (1000 UT) capsule Take 1,000 Units by mouth Daily Active Cholecalciferol, Vitamin D3, 25 mcg (1,000 unit) cap Take 1,000 Units by mouth. Active ergocalciferol, vitamin D2, (VITAMIN D2 ORAL) (11 sources) ergocalciferol, vitamin D2, (VITAMIN D2 ORAL) Take by mouth. Active ferrous sulfate 325 mg oral tablet (20 sources) Start: 08-09-2024 End: 11-07-2024 take 1 tablet by mouth in the morning ferrous sulfate 325 (65 Fe) MG tablet Indications: Iron deficiency anemia, unspecified Take 1 tablet (325 mg) by mouth in the morning and 1 tablet (325 mg) in the evening. Take with meals. 180 tablet 08/09/2024 11/07/2024 Active Start: 05-13-2024 take 1 tablet by amanda th in the morning ferrous sulfate 325 (65 Fe) MG tablet Indications: Iron deficiency anemia, unspecified Take 1 tablet (325 mg) by mouth in the morning and 1 tablet (325 mg) in the evening. Take with meals. 180 tablet 05/13/2024 Active Start: 02-14-2024 End: 05-13-2024 take 1 tablet by mouth in the morning ferrous sulfate 325 (65 Fe) MG tablet Take 325 mg by mouth in the morning and 325 mg in the evening. Take before meals. 02/14/2024 05/13/2024 Discontinued Start: 01-21-2022 take 1 tablet by amanda th once daily ferrous sulfate 325 mg oral enteric coated tablet 325 mg = 1 tab(s), Oral, Daily, Refills(s) 0 Start Date: 01/21/22 Status: Ordered Start: 01-08-2022 take 1 tablet by amanda th once daily ferrous sulfate 325 mg (65 mg iron) tablet TAKE 1 TABLET BY MOUTH ONCE A DAY *MAY TURN STOOLS BLACK* 01/08/2022 Active Comment on above: TAKE 1 TABLET BY AMANDA TH ONCE A DAY *MAY TURN STOOLS BLACK* hydroCHLOROthiazide 12.5 mg oral tablet (20 sources) Thiazide Diuretic Start: 025 End: 025 take 1 tablet by mouth once daily hydroCHLOROthiazide (HYDRODiuril) 12.5 MG tablet Indications: Primary hypertension Take 1 tablet (12.5 mg) by mouth Daily 90 tablet 01/19/2025 04/19/2025 Active Start: 10-01-2024 End: 12-30-2024 take 1 tablet by mouth once daily hydroCHLOROthiazide (HYDRODiuril) 12.5 MG tablet Indications: Primary hypertension Take 1 tablet (12.5 mg) by mouth Daily 90 tablet 10/01/2024 Active Start: 11-10-2023 End: 06-25-2024 take 1 tablet by mouth once daily hydroCHLOROthiazide (HYDRODiuril) 12.5 MG tablet Indications: Primary hypertension (CMS/HCC) Take 1 tablet (12.5 mg) by mouth Daily 90 tablet 1 03/27/2024 Active Start: 01-21-2022 take 1 tablet by amanda th once daily hydrochlorothiazide 12.5 mg Tab 12.5 [...] daily. losartan potassium 50 mg oral tablet (20 sources) Angiotensin 2 Receptor Ricki Start: End: take 1 tablet by mouth once daily losartan (Cozaar) 50 MG tablet Indications: Primary hypertension Take 1 tablet (50 mg) by mouth Daily 90 tablet 01/14/2025 04/14/2025 Active Start: 01-21-2022 End: 06-25-2024 take 1 tablet by mouth once daily losartan (Cozaar) 50 MG tablet Indications: Primary hypertension (CMS/HCC) Take 1 tablet (50 mg) by mouth Daily 90 tablet 1 03/27/2024 Active Comment on above: Take 50 mg by mouth once daily. phenylephrine hydrochloride 25 mg/ml ophthalmic solution (2 sources) alpha-1 Adrenergic Agonist Start: 04-09-2024 End: 04-10-2024 PHENYLephrine 2.5 % 1 Drop (AK-DILATE, RADHA-SYNEPHRINE) Start: 04-04-2024 End: 04-04-2024 PHENYLephrine 2.5 % 1 Drop ( AK-DILATE, RADHA-SYNEPHRINE) prednisoLONE acetate 10 mg/ml ophthalmic suspension (8 sources) Corticosteroid Start: 05-21-2024 prednisoLONE a cetate (PRED FORTE) 1 % ophthalmic suspension Use 1 Drop in the left eye as directed. Starting TOMORROW place one drop in operative eye four times a day. 08/14/2024 Active proparacaine hydrochloride 5 mg/ml ophthalmic solution (1 source) Local Anesthetic Start: 04-04-2024 End: 04-04-2024 proparacaine 0.5 % 1 Drop (ALCAINE) tropicamide 10 mg/ml ophthalmic solution (2 sources) Anticholinergic Start: 04-09-2024 End: 04-10-2024 tropicamide 1 % 1 Drop (MYDRIACYL) Start: 04-04-2024 End: 04-04-2024 tropicamide 1 % 1 Drop (MYDR IACYL) Completed/Discontinued Medications Medication Drug Class(es) Dates Sig (Normalized) Sig (Original) aspirin 81 mg delayed release oral tablet (6 sources) Platelet Aggregation Inhibitor, Nonsteroidal Anti-inflammatory Drug End: 05-11-2024 take 1 tablet by mouth once daily aspirin, enteric coated 81 mg EC tablet Take 81 mg by mouth once daily. 05/11/2024 Discontinued Comment on above: Take 81 mg by mouth once daily. lisinopril 20 mg oral tablet (6 sources) Angiotensin Converting Enzyme Inhibitor Start: 10-22-2014 End: 05-11-2024 take 1 tablet by mouth once daily lisinopril (ZESTRIL, PRINIVIL) 20 mg tablet Take 1 tablet by mouth once daily. 90 tablet 3 10/22/2014 05/11/2024 Discontinued Comment on above: Take 1 tablet by amanda th once daily. Problems Active Problems Problem Classification Problem Date Documented Date Episodic/Chronic Adjustment disorders (12 sources) Adjustment disorder with anxious mood; Translations: [Adjustment disorder with anxiety] Onset: 09-19-2017 10-13-2023 Chronic Anxiety disorders (2 sources) Mixed anxiety and depressive disorder; Translations: [Anxiety disorder, unspecified] 04-17-2024 Chronic Cancer of colon (11 sources) Malignant tumor of colon; Translations: [Malignant neoplasm of colon, unspecified] Onset: 05-11-2024 Chronic Cataract (8 sources) Bilateral senile combined form cataracts of eyes; Translations: [Combined forms of age-related cataract, bilateral] Onset: 08-10-2024 04-09-2024 Chronic Deficiency and other anemia (4 sources) Iron deficiency anemia, unspecified; Translations: [IRON DEFICIENCY ANEMIA UNSPECIFIED] Onset: 03-10-2022 Episodic Disorders of lipid metabolism (10 sources) Hyperlipidemia; Translations: [Other hyperlipidemia] Onset: 05-11-2024 05-11-2024 Chronic Esophageal disorders (20 sources) Gastroesophageal reflux disease without esophagitis; Translations: [Gastro-esophageal reflux disease without esophagitis] Onset: 02-16-2022 Resolved: 05-11-2024 Chronic Essential hypertension (20 sources) Hypertensive disorder; Translations: [Essential (primary) hypertension] Onset: 05-25-2021 01-21-2022 Chronic Gastritis and duodenitis (1 source) Unspecified chronic gastritis without bleeding; Translations: [UNS CHRONIC GASTRITIS W/O BLEEDING] Onset: 03-24-2022 Chronic Malaise and fatigue (2 sources) Fatigue; Translations: [Chronic fatigue, unspecified] 04-17-2024 Chronic Mood disorders (20 sources) Bipolar disorder in remission; Translations: [Bipolar disorder, currently in remission, most recent episode unspecified] Onset: 09-19-2017 Resolved: 05-11-2024 12-29-2023 Chronic Mycoses (1 source) Pain in toe; Translations: [Tinea unguium] 09-19-2024 Episodic Neoplasms of unspecified nature or uncertain behavior (1 source) Monoclonal gammopathy of uncertain significance; Translations: [Monoclonal gammopathy] Chronic Nutritional deficiencies (14 sources) Vitamin D deficiency; Translations: [Vitamin D deficiency, unspecified] Onset: 11-15-2023 11-15-2023 Chronic Other aftercare (7 sources) Surgical follow-up; Translations: [Encounter for follow-up examination after completed treatment for conditions other than malignant neoplasm] Onset: 08-10-2024 05-22-2024 Episodic Other aftercare (1 source) Encounter for follow-up examination after completed treatment for conditions other than malignant neoplasm; Translations: [Examination following surgery] Onset: 08-10-2024 Episodic Other and unspecified benign neoplasm (1 source) Polyp of colon; Translations: [POLYP OF COLON] Onset: 03-24-2022 Episodic Other diseases of veins and lymphatics (1 source) Vascular insufficiency; Translations: [Venous insufficiency (chronic) (peripheral)] 09-19-2024 Episodic Other ear and sense organ disorders (6 sources) Tinnitus of vascular origin; Translations: [Pulsatile tinnitus, unspecified ear] 04-17-2024 Episodic Other nervous system disorders (2 sources) Paresthesia; Translations: [Paresthesia of skin] 04-17-2024 Episodic Other nutritional; endocrine; and metabolic disorders (2 sources) Body mass index 30+ - obesity 02-16-2022 Chronic Other nutritional; endocrine; and metabolic disorders (14 sources) Obesity; Translations: [Obesity, unspecified] Onset: 10-13-2023 01-21-2022 Chronic Retinal detachments; defects; vascular occlusion; and retinopathy (7 sources) Drusen of retina of bilateral eyes; Translations: [Drusen (degenerative) of macula, bilateral] Onset: 08-10-2024 04-04-2024 Chronic Spondylosis; intervertebral disc disorders; other back problems (18 sources) Degeneration of lumbar intervertebral disc; Translations: [Other intervertebral disc degeneration, lumbar region] Onset: 11-04-2021 01-21-2022 Chronic Thyroid disorders (20 sources) Thyroid nodule; Translations: [Nontoxic single thyroid nodule] Onset: 02-02-2022 01-21-2022 Chronic Unclassified (20 sources) Parkinson's disease; Translations: [Parkinson's disease] Onset: 03-08-2024 03-08-2024 Chronic Unclassified (1 source) CONTACT W/AND (SUSP) EXPOS COVID-19; Translations: [CONTACT W/AND (SUSP) EXPOS COVID-19] Onset: 03-10-2022 Unclassified (3 sources) LOW BACK PAIN, UNSPECIFIED; Translations: [LOW BACK PAIN, UNSPECIFIED] Onset: 12-11-2021 Past or Other Problems Problem Classification Problem Date Documented Date Episodic/Chronic Cancer of colon (18 sources) History of malignant neoplasm of colon; Translations: [Personal history of other malignant neoplasm of large intestine] Onset: 02-16-2022 Episodic Deficiency and other anemia (18 sources) Iron deficiency anemia; Translations: [Iron deficiency anemia, unspecified] Onset: 02-16-2022 Episodic Deficiency and other anemia (20 sources) Anemia; Translations: [Anemia, unspecified] Onset: 07-12-2023 Resolved: 05-11-2024 01-21-2022 Episodic Deficiency and other anemia (4 sources) Anemia, unspecified; Translations: [ANEMIA UNSPECIFIED] Onset: 06-01-2021 Episodic Diabetes mellitus without complication (1 source) Hyperglycemia, unspecified; Translations: [HYPERGLYCEMIA UNSPECIFIED] Onset: 06-07-2021 Episodic Immunizations and screening for infectious disease (17 sources) Encounter for immunization; Translations: [Needs influenza immunization] Onset: 04-14-2021 Episodic Malaise and fatigue (18 sources) Other fatigue; Translations: [Fatigue] Onset: 11-11-2021 Episodic Nonmalignant breast conditions (1 source) Unspecified lump in the right breast, upper outer quadrant; Translations: [UNS LUMP IN RT BREAST UP OUTR QUAD] Onset: 12-16-2021 Episodic Other acquired deformities (14 sources) Lumbar spondylolisthesis; Translations: [Spondylolisthesis, lumbar region] Onset: 10-13-2023 01-21-2022 Episodic Other acquired deformities (1 source) Spondylolisthesis, lumbar region; Translations: [SPONDYLOLISTHESIS LUMBAR REGION] Onset: 11-11-2021 Episodic Other connective tissue disease (1 source) Other symptoms and signs involving the musculoskeletal system; Translations: [OTH SX AND SYMP INVOLV MUSCULOSKELTAL] Onset: 11-11-2021 Episodic Other diseases of veins and lymphatics (12 sources) Peripheral venous insufficiency; Translations: [Venous insufficiency (chronic) (peripheral)] Onset: 10-13-2023 10-13-2023 Episodic Other fractures (1 source) Collapsed vertebra, not elsewhere classified, lumbar region, initial encounter for fracture; Translations: [COLLAPSED VERT NEC LUMBAR INIT ENC] Onset: 12-11-2021 Episodic Other injuries and conditions due to external causes (12 sources) History of fall; Translations: [History of falling] Onset: 03-08-2024 03-08-2024 Episodic Other nervous system disorders (20 sources) Tremor; Translations: [Tremor, unspecified] Onset: 03-08-2024 Resolved: 05-11-2024 03-08-2024 Episodic Other screening for suspected conditions (not mental disorders or infectious disease) (20 sources) Abnormal finding on evaluation procedure; Translations: [Abnormal results of function studies of other organs and systems] Onset: 12-02-2021 Episodic Personality disorders (8 sources) Borderline personality disorder; Translations: [Borderline personality disorder] Onset: 09-19-2017 Resolved: 05-11-2024 05-11-2024 Chronic Residual codes; unclassified (14 sources) Edema; Translations: [Edema, unspecified] Onset: 10-13-2023 01-21-2022 Episodic Spondylosis; intervertebral disc disorders; other back problems (1 source) Dorsalgia, unspecified; Translations: [DORSALGIA UNSPECIFIED] Onset: 05-28-2021 Episodic Unclassified (1 source) LOW BACK PAIN, UNSPECIFIED; Translations: [LOW BACK PAIN, UNSPECIFIED] Onset: 12-04-2021 Results Test Name Value Interpretation Reference Range Facility [facility] RIANA QUILES ([id number]) 1945 F Date Time Provider Department 08/15/24 ELTON AVALOS During your visit today, we recorded the following information about you: Konstantin Janet Henderson Tyra 08/15/2024 8:34 AM Signed Patient called said that she cannot come to her 1 day post op today, said that she is not feeling well today and was up all night with her sister. I told her that I would let the provider know and someone would be giving her a call. Allergies As of Date: 08/15/2024 Noted Allergy Reaction BEE POLLEN 04/09/2024 16 - Unknown Date Reviewed: 08/14/2024 Reviewed by: Jossie Solomon, RN - Fully Assessed Reason for Visit: Patient Update [1234] Prescriptions as of 08/15/2024 - prednisoLONE acetate (PRED FORTE) 1 % ophthalmic suspension Use 1 Drop in the left eye as directed. Starting TOMORROW place one drop in operative eye four times a day. - prednisoLONE acetate (PRED FORTE) 1 % ophthalmic suspension Use 1 Drop in the right eye as directed. Starting TOMORROW place one drop in operative eye four times a day. - carbidopa-levodopa (SINEMET 25-100) 25-100 mg per tablet Take 1 tablet by mouth three times a day (at 7:00 am, 11:00 am, and 3:00 pm) - Cholecalciferol, Vitamin D3, 25 mcg (1,000 unit) cap Take 1,000 Units by mouth. - ergocalciferol, vitamin D2, (VITAMIN D2 ORAL) Take by mouth. - ferrous sulfate 325 mg (65 mg iron) tablet TAKE 1 TABLET BY MOUTH ONCE A DAY *MAY TURN STOOLS BLACK* - losartan (COZAAR) 50 mg tablet Take 50 mg by mouth once daily. - carvedilol (COREG) 12.5 mg tablet Take 1 tablet by mouth twice daily with meals. - hydrochlorothiazide (HYDRODIURIL, ESIDRIX) 25 mg tablet Take 1 tablet by mouth once daily. Problem List As Of Date 08/15/2024 Noted Resolved Anemia, unspecified [D64.9] 07/12/2023 05/11/2024 Bipolar affective disorder in remission (HCC) [*09/19/2017 05/11/2024 Borderline personality disorder (HCC) [F60.3] 09/19/2017 05/11/2024 GERD (gastroesophageal reflux disease) [K21.9] 10/13/2023 05/11/2024 Primary hypertension [I10] 05/25/2021 Tremor [R25.1] 03/08/2024 05/11/2024 Parkinson disease (HCC) [G20.A1] 05/11/2024 Colon cancer (HCC) [C18.9] 05/11/2024 Other hyperlipidemia [E78.49] 05/11/2024 Examination following surgery [Z09] 08/10/2024 Combined forms of age-related cataract of left *08/10/2024 Degenerative retinal drusen of both eyes [H35.3*08/10/2024 Encounter Status:Closed by JANET MACIAS on 08/15/24 [facility] ANES POSTPROC EVALon 025 ANES POSTPROC EVAL HNO ID: [id number] Author: LINDSEY FLOWERS MD Service: Anesthesiology Author Type: Physician Type: Anesthesia Postprocedure Evaluation Filed: 08/14/2024 11:29 Note Text: POST ANESTHESIA EVALUATION NOTE : 1945 Procedure Summary Date: 08/14/24 Room / Location: [address] Anesthesia Start: 1048 Anesthesia Stop: 1110 Procedures: PHACOEMULSIFICATION CATARACT IMPLANT INTRAOCULAR LENS W/O ENDOSCOPIC CYCLOPHOTOCOAGULATION (Left: Eye) OPHTHALMIC BIOMETRY BY PARTIAL COHERENCE INTERFEROMETRY W/INTRAOCULAR LENS POWER CALCULATION (Left: Eye) Diagnosis: Combined forms of age-related cataract of both eyes (Combined forms of age-related cataract of both eyes [H25.813]) Surgeons: Elton Avalos MD Responsible Provider: Lindsey Flowers MD Anesthesia Type: MAC ASA Status: 3 Anesthesia Type: MAC Last Vitals Vitals Value Taken Time BP 135/80 08/14/24 1114 Temp 36.1 ?C (97 ?F) 08/14/24 1112 Pulse 72 08/14/24 1114 Resp 16 08/14/24 1114 SpO2 98 % 08/14/24 1114 Post Anesthesia Patient Status Patient Evaluation: PACU. PACU/ICU Patient Condition: stable. Anticipated Disposition: phase 2 then home. Neurological Status: aware and responsive. Pulmonary Status: breathing comfortably on room air Airway Control: returned to baseline unsupported. Cardiovascular Status: stable. Pain Management: clinically adequate Postoperative Hydration: acceptable. Intraoperative Events: no significant anesthesia events Post Operative Nausea/Vomiting Status: no significant post operative nausea or vomiting Recommendation: further care per PACU/ICU/floor team. Anesthesia Observations No Documentation SIGNATURE: Lindsey Flowers MD PATIENT NAME: Riana Quiles DATE: August 14, 2024 TIME: 11:29 AM CSN: [id number] Normal [facility] ANES PRE-OPon 08-14-2024 ANES PRE-OP HNO ID: [id number] Author: LINDSEY FLOWERS MD Service: Anesthesiology Author Type: Physician Type: Anesthesia Preprocedure Evaluation Filed: 08/14/2024 10:30 Note Text: ANESTHESIOLOGY DAY OF SURGERY NOTE : 1945 Procedure Information Date/Time: 08/14/24 1010 Procedures: PHACOEMULSIFICATION CATARACT IMPLANT INTRAOCULAR LENS W/O ENDOSCOPIC CYCLOPHOTOCOAGULATION (Left: Eye) OPHTHALMIC BIOMETRY BY PARTIAL COHERENCE INTERFEROMETRY W/INTRAOCULAR LENS POWER CALCULATION (Left: Eye) Location: [address] Surgeons: Elton Avalos MD Estimated body mass index is 29.9 kg/m? as calculated from the following: Height as of 08/10/24: 162.6 cm (5' 4 ). Weight as of 08/10/24: 79 kg (174 lb 2.6 oz). Most recent hematocrit and potassium results: Hematocrit 36.7 01/25/2022 Potassium 4.1 01/25/2022 Relevant Problems ANESTHESIA (within normal limits) CARDIO (+) Primary hypertension Neurology (+) Parkinson disease (HCC) Oncology (+) Colon cancer (HCC) Took carvidopa-levidopa today I - PHYSICAL EVALUATION AIRWAY Patient intubated: No. Tracheostomy tube not present Mallampati: III. TM distance: >3 FB. Neck ROM: full ROM without neurological symptoms. Mouth opening: adequate. Short neck: no. Thick neck: no DENTAL Dental findings: teeth intact. Additional exam findings: yes. CARDIOVASCULAR Rhythm: regular Rate: normal PULMONARY Breath sounds clear to auscultation. Other findings: tremors. II - ANESTHESIA PLAN ASA Score: 3 Anesthetic Plan: MAC The patient is not a current smoker. NPO Status: adequate Beta Ricki Monitoring Plan Monitoring plan: standard ASA. Post Procedure Analgesic Plan Postoperative analgesic plan: per surgical service. Informed Consent Anesthetic risks, benefits, alternatives, personnel and consent discussed: yes. Patient / Responsible Constitution Party agrees to proceed: yes Patient / Surrogate agrees to blood products: blood products not planned DNR status not reviewed with patient and/or family prior to surgery. Significant changes in the patient condition since the History and Physical, not otherwise documented in primary service progress note: no. Potential Anesthesia issues that may suggest increased risk of complications or contraindication to planned procedure: surgical field avoidance. field avoidance. The anesthetic will be complicated due to field avoidance because the surgical procedure will be around the airway (head, neck, or shoulder girdle). There will be no direct access to the patient's airway therefore increasing the technical difficulty. No vitals data found for the desired time range. Facility-Administered Medications as of 08/14/2024 Medication Dose Route Frequency [COMPLETED] lidocaine 4% 1 Drop ophthalmic solution (XYLOCAINE) 1 Drop RIGHT EYE q 5 MIN [COMPLETED] PHENYLephrine 2.5 % 1 Drop (AK-DILATE, RADHA-SYNEPHRINE) 1 Drop RIGHT EYE q 5 MIN [COMPLETED] tropicamide 1 % 1 Drop (MYDRIACYL) 1 Drop RIGHT EYE q 5 MIN [COMPLETED] cyclopentolate 1 % 1 Drop (CYCLOGYL) 1 Drop RIGHT EYE q 5 MIN [COMPLETED] ondansetron (PF) 4 mg injection (ZOFRAN) 4 mg INTRAVENOUS Pre-Op Once Outpatient Medications as of 08/14/2024 Medication Sig prednisoLONE acetate (PRED FORTE) 1 % ophthalmic suspension Use 1 Drop in the right eye as directed. Starting TOMORROW place one drop in operative eye four times a day. (Patient not taking: Reported on 08/10/2024) ergocalciferol, vitamin D2, (VITAMIN D2 ORAL) Take by mouth. ferrous sulfate 325 mg (65 mg iron) tablet TAKE 1 TABLET BY MOUTH ONCE A DAY *MAY TURN STOOLS BLACK* losartan (COZAAR) 50 mg tablet Take 50 mg by mouth once daily. carvedilol (COREG) 12.5 mg tablet Take 1 tablet by mouth twice daily with meals. hydrochlorothiazide (HYDRODIURIL, ESIDRIX) 25 mg tablet Take 1 tablet by mouth once daily. I have interviewed and examined the patient. I have reviewed the medical record and/or the pre-anesthesia evaluation, pertinent labs, and test results. This contains updated information obtained within 48 hours of Surgery/Procedure. SIGNATURE: Lindsey Flowers MD PATIENT NAME: Riana Quiles DATE: August 14, 2024 TIME: 9:32 AM CSN: [id number] Normal [facility] OPERATIVE NOon 08-14-2024 OPERATIVE NO HNO ID: [id number] Author: ELTON AVALOS MD Service: Ophthalmology Author Type: Physician Type: Operative Report Filed: 08/14/2024 11:09 Note Text: OPERATIVE/PROCEDURE REPORT Patient Name: Riana Quiles LOG ID: [id number] Surgery/Procedure Date: 08/14/2024 Incision/Procedure Start Time: 10:57 AM Incision Close/Procedure End Time: 11:07 AM Surgeon(s)/Proceduralist(s) and Registered Nursing Professor(s): Surgeons and Role: * Elton Avalos MD - Primary Procedure(s): Procedure(s) (LRB): PHACOEMULSIFICATION CATARACT IMPLANT INTRAOCULAR LENS W/O ENDOSCOPIC CYCLOPHOTOCOAGULATION (Left) OPHTHALMIC BIOMETRY BY PARTIAL COHERENCE INTERFEROMETRY W/INTRAOCULAR LENS POWER CALCULATION (Left) Preoperative Diagnosis: Pre-Op Diagnosis Codes: * Combined forms of age-related cataract of left eye Postoperative Diagnosis: same Operative Indications: The patient has a functionally significant cataract. The risks, benefits, and alternatives of cataract extraction with intraocular lens implantation were discussed with the patient who agreed to have the procedure done. Anesthesia: Monitored Anesthesia Care Procedure Details: Preoperatively, 2% lidocaine gel was instilled into the operative eye. The patient was taken to the operating room in a supine position on the operating table. The operative eye was then prepped with povidone-iodine and draped in the usual sterile fashion for intraocular surgery. Under the operating microscope, a temporal paracentesis was created. A small amount of preservative-free 1% lidocaine was instilled into the anterior chamber. The anterior chamber was then deepened with Viscoat. A temporal triplanar clear corneal incision was created with a 2.4 mm keratome. A cystitome and Utrata forceps were used to fashion a continuous curvilinear capsulorrhexis. Balanced salt solution was used to hydrodissect and hydrodelineate the nucleus. The phacoemulsification tip was introduced into the eye, and anterior cortex was aspirated. The nucleus was removed with CDE 15.51 . Irrigation and aspiration was used to remove residual cortex. The capsular bag was examined and found to be intact. The anterior chamber was deepened with Provisc, and a 21 diopter, model [id number] lens was injected into the capsular bag. Irrigation and aspiration was used to remove residual viscoelastic. The wounds were hydrated, examined, and found to be watertight. 0.1 cc of cefuroxime was injected into the anterior chamber. The drapes were removed, and ofloxacin 0.3% was instilled into the operative eye. The patient was taken to the recovery area in stable condition. No qualified resident/fellow was available. Estimated Blood Loss: minimal Specimens: * No specimens in log * Implantable Devices: Implant Name Type Inv. Item Serial No. Manager In Training Lot No. LRB No. Used Action Model No. CC60WF.210 [employer] - [id number] Intraocular Lens [id number] [employer] [id number] [employer] Left 1 Implanted [id number] I have reviewed the images and report from the Ophthalmic Biometry 08/14/2024 to determine the Intraocular lens Power Calculation for the IOL lens implant. I have interpreted and agree with the calculation of the IOL as listed below. Drains: None Complications: None Elton Avalos MD August 14, 2024 11:09 AM Normal [facility] HISTORY PHYSICALon HISTORY PHYSICAL HNO ID: [id number] Author: NATALY MARTIN APRN.PILLAR MAN Service: ? Author Type: Nurse Practitioner Type: H&P Filed: 08/10/2024 10:58 Note Text: HISTORY AND PHYSICAL EXAMINATION SERVICE DATE: 08/10/2024 SERVICE TIME: 10:22 AM PRIMARY CARE PHYSICIAN: Rosita Schaffer PILLAR MAN, PILLAR MAN REASON FOR VISIT: Riana Quiles is a 79 year old female who is scheduled for Left - PHACOEMULSIFICATION CATARACT IMPLANT INTRAOCULAR LENS W/O ENDOSCOPIC CYCLOPHOTOCOAGULATION Left - OPHTHALMIC BIOMETRY BY PARTIAL COHERENCE INTERFEROMETRY W/INTRAOCULAR LENS POWER CALCULATION at the request of Dr. Tello Bradford for consultation. My final recommendation will be communicated back to the requesting physician by way of shared medical record or letter. Assessment Parkinson disease (HCC) Assessment: Controlled on sinmet +Tremors Follows with PCP Primary hypertension Assessment: Stable on medication 161/90 in office today Follows with PCP Colon cancer (HCC) Assessment: s/p colectomy No known recurrence Other hyperlipidemia Assessment: On Statin Follows with PCP ANESTHESIA FINDINGS: Intubation History: No history of difficult intubation Significant Anesthesia Considerations: none Airway History: No history of difficult airway Dietz Activity Status Index: METS: Walk indoors, such as around the house (1.75 METs) Do light work around the house, such as dusting or washing dishes (2.70 METs) Take care of self; that is eating, dressing, bathing, using the toilet (2.75 METs) Walk a block or two on level ground (2.75 METs) Do moderate work around the house, such as vacuuming, sweeping floors, or carrying in groceries (3.50 METs) Climb a flight of stairs or walk up a hill (5.50 METs) DASI Score: 18.95 Patient denies any chest pain or undue shortness of breath with the above physical activity. STOP-Bang Score: Has or is being treated for high blood pressure Patient over 50 years old Denies snoring loudly Denies feeling tired, fatigued, or sleepy during the daytime Has not been observed to stop breathing or choking/gasping during sleep BMI less than or equal to 35 kg/m2 Does not have a large neck Non-male patient STOP-Bang Score: 2 [id number] Score: Age: >=75 Sex: female CHF history: No Hypertension history: Yes Stroke/TIA/thromboembolism history: No Vascular disease history: No Diabetes history: No [id number] Score: 4 ARISCAT Score: Age: 51-80 Preoperative SpO2: >=96% Respiratory infection in the last month: No Preoperative anemia: No Surgical incision: peripheral Duration of surgery: <2 hrs Emergency procedure: No ARISCAT Score: 3 Airway Exam: General: Normal appearance There is no height or weight on file to calculate BMI. Mallampati Score is CLASS II ULBT: Class II - Lower incisors can bite the upper lip below the ed line Neck: Normal appearance and function, Distance from hyoid to mentum during neck extension is at least 3 finger breaths Mouth: Normal tongue size and Mouth opening greater than 2 finger breaths Dentition: Intact Airway History: No abnormal airway history Planned Anesthetic: Per anesthesia choice Prepared for surgery: This patient is optimally prepared for surgery. CONSULTS: Patient does not require consults for optimization at this time. The Following Tests/Procedures Have Been Initiated: Labs not indicated per [facility] protocol, EKG not indicated per [facility] protocol Planned Anesthetic: Per anesthesia choice Subjective CHIEF COMPLAINT: Visual Changes HPI: 79 year old year old presents today with complaints of difficulty with vision. Found to have cataract on exam. Denies pain. No relieving factors. PAST MEDICAL HISTORY Diagnosis Date Anemia Benign breast lumps Chest pain Colon cancer (HCC) COPD (chronic obstructive pulmonary disease) (HCC) DDD (degenerative disc disease), lumbar GERD (gastroesophageal reflux disease) Heart murmur HTN (hypertension) Parkinson's disease (HCC) Thyroid nodule PAST SURGICAL HISTORY Procedure Laterality Date PAST SURGICAL HISTORY OF 1999 partial colon resection PAST SURGICAL HISTORY OF removal of breast lumps FAMILY HISTORY Problem Relation Age of Onset Hypertension Mother Alzheimer's Disease Mother Cancer Father Bone Hypertension Father Prostate Cancer Father Lung Cancer Father Hypertension Sister Cancer Sister melanoma No Ocular Disease Other Difficulty with anesthesia No Family History SOCIAL HISTORY: Social History Tobacco Use Smoking status: Never Passive exposure: Past Smokeless tobacco: Never Vaping Use Vaping status: Never Used Substance Use Topics Alcohol use: No Drug use: No Prior to Admission medications as of 08/10/24 1041 Medication Sig Last Dose Taking prednisoLONE acetate (PRED FORTE) 1 % ophthalmic suspension Use 1 Drop in the right eye as directed. Starting TOMORROW place one drop in operat (more content not included)... Normal [facility] Yanci 06-12-2024 CNPN Telephone (OPHTLN) RIANA QUILES ([id number]) 1945 F Date Time Provider Department 06/12/24 ELTON AVALOS During your visit today, we recorded the following information about you: Janet Macias 06/12/2024 3:39 PM Signed Patient calling, she would like to cancel her upcoming surgery and reschedule into august. Patient also is calling bc she wants to reschedule her 1 wk post op, it has already 1 time and now wants to reschedule again....its now over a month after her surgery and getting into her other post op appointments (that need to be rescheduled) and I didn't want to confuse her. I told her surgery scheduling would call to get everything rescheduled. Mellisarenate Malaika R 06/13/2024 2:52 PM Signed Called and spoke to patient. She agreed to keep post op on 06/[address] Gillette for post op on right eye (cat sx done 05/21). Left eye surgery has been rescheduled from 06/19 to 08/14 at her request. Appointment list mailed. Allergies As of Date: 06/12/2024 Noted Allergy Reaction BEE POLLEN 04/09/2024 16 - Unknown Date Reviewed: 05/21/2024 Reviewed by: Carolyn Washington, RN - Fully Assessed Prescriptions as of 06/13/2024 - prednisoLONE acetate (PRED FORTE) 1 % ophthalmic suspension Use 1 Drop in the right eye as directed. Starting TOMORROW place one drop in operative eye four times a day. - carbidopa-levodopa (SINEMET 25-100) 25-100 mg per tablet Take 1 tablet by mouth three times a day (at 7:00 am, 11:00 am, and 3:00 pm) - Cholecalciferol, Vitamin D3, 25 mcg (1,000 unit) cap Take 1,000 Units by mouth. - ergocalciferol, vitamin D2, (VITAMIN D2 ORAL) Take by mouth. - ferrous sulfate 325 mg (65 mg iron) tablet TAKE 1 TABLET BY MOUTH ONCE A DAY *MAY TURN STOOLS BLACK* - losartan (COZAAR) 50 mg tablet Take 50 mg by mouth once daily. - carvedilol (COREG) 12.5 mg tablet Take 1 tablet by mouth twice daily with meals. - hydrochlorothiazide (HYDRODIURIL, ESIDRIX) 25 mg tablet Take 1 tablet by mouth once daily. Problem List As Of Date 06/12/2024 Noted Resolved Anemia, unspecified [D64.9] 07/12/2023 05/11/2024 Bipolar affective disorder in remission (HCC) [*09/19/2017 05/11/2024 Borderline personality disorder (HCC) [F60.3] 09/19/2017 05/11/2024 GERD (gastroesophageal reflux disease) [K21.9] 10/13/2023 05/11/2024 Primary hypertension [I10] 05/25/2021 Tremor [R25.1] 03/08/2024 05/11/2024 Parkinson disease (HCC) [G20.A1] 05/11/2024 Colon cancer (HCC) [C18.9] 05/11/2024 Other hyperlipidemia [E78.49] 05/11/2024 Encounter Status:Closed by MALAIKA RENDON on 06/13/24 [facility] ANES POSTPROC EVALon 024 ANES POSTPROC EVAL HNO ID: [id number] Author: ZAFAR THOMAS II, DO Service: Anesthesiology Author Type: Anesthesiologist Type: Anesthesia Postprocedure Evaluation Filed: 05/21/2024 14:14 Note Text: POST ANESTHESIA EVALUATION NOTE : 1945 Procedure Summary Date: 05/21/24 Room / Location: [place] [address] / [facility] Anesthesia Start: 1140 Anesthesia Stop: 1158 Procedures: PHACOEMULSIFICATION CATARACT IMPLANT INTRAOCULAR LENS W/O ENDOSCOPIC CYCLOPHOTOCOAGULATION (Right: Eye) OPHTHALMIC BIOMETRY BY PARTIAL COHERENCE INTERFEROMETRY W/INTRAOCULAR LENS POWER CALCULATION (Right: Eye) Diagnosis: Combined forms of age-related cataract of both eyes (Combined forms of age-related cataract of both eyes [H25.813]) Surgeons: Elton Avalos MD Responsible Provider: Zafar Thomas II, DO Anesthesia Type: MAC ASA Status: 3 Anesthesia Type: MAC Last Vitals Vitals Value Taken Time BP 126/74 05/21/24 1204 Temp 36.2 ?C (97.2 ?F) 05/21/24 1200 HR SpO2 72 05/21/24 1204 Resp 16 05/21/24 1204 SpO2 95 % 05/21/24 1204 Post Anesthesia Patient Status Patient Evaluation: PACU. PACU/ICU Patient Condition: stable. Neurological Status: aware and responsive. Pulmonary Status: breathing comfortably on room air Airway Control: returned to baseline unsupported. Cardiovascular Status: stable. Pain Management: clinically adequate Postoperative Hydration: acceptable. Intraoperative Events: no significant anesthesia events Post Operative Nausea/Vomiting Status: no significant post operative nausea or vomiting Recommendation: continue current plan of care. Anesthesia Observations No Documentation SIGNATURE: Zafar Thomas II, DO PATIENT NAME: Riana Quiles DATE: May 21, 2024 TIME: 2:13 PM CSN: [id number] Normal [facility] ANES PRE-OPon 05-21-2024 ANES PRE-OP HNO ID: [id number] Author: ZAFAR THOMAS II, DO Service: Anesthesiology Author Type: Anesthesiologist Type: Anesthesia Preprocedure Evaluation Filed: 05/21/2024 11:03 Note Text: ANESTHESIOLOGY DAY OF SURGERY NOTE : 1945 Procedure Information Date/Time: 05/21/24 1115 Procedures: PHACOEMULSIFICATION CATARACT IMPLANT INTRAOCULAR LENS W/O ENDOSCOPIC CYCLOPHOTOCOAGULATION (Right: Eye) OPHTHALMIC BIOMETRY BY PARTIAL COHERENCE INTERFEROMETRY W/INTRAOCULAR LENS POWER CALCULATION (Right: Eye) Location: [address] Surgeons: Elton Avalos MD Estimated body mass index is 29.9 kg/m? as calculated from the following: Height as of 05/11/24: 162.6 cm (5' 4 ). Weight as of 05/11/24: 79 kg (174 lb 2.6 oz). Most recent hematocrit and potassium results: Hematocrit 36.7 01/25/2022 Potassium 4.1 01/25/2022 Relevant Problems CARDIO (+) Primary hypertension I - PHYSICAL EVALUATION AIRWAY Patient intubated: No. Tracheostomy tube not present Mallampati: III. TM distance: >3 FB. Neck ROM: limited extension. Mouth opening: adequate. Short neck: no. Thick neck: no DENTAL Dental findings: teeth intact. Additional exam findings: yes. CARDIOVASCULAR Rhythm: regular Rate: normal PULMONARY Breath sounds clear to auscultation. II - ANESTHESIA PLAN ASA Score: 3 Anesthetic Plan: MAC The patient is not a current smoker. NPO Status: adequate Beta Ricki Monitoring Plan Monitoring plan: standard ASA. Post Procedure Analgesic Plan Postoperative analgesic plan: parenteral or oral opioids. Informed Consent Anesthetic risks, benefits, alternatives, personnel and consent discussed: yes. Patient / Responsible Constitution Party agrees to proceed: yes Patient / Surrogate agrees to blood products: Yes Vitals Value Taken Time BP 155/74 05/21/24 1030 Pulse 75 05/21/24 1030 Resp 18 05/21/24 1030 Temp 36.5 ?C (97.7 ?F) 05/21/24 1030 SpO2 97 % 05/21/24 1030 Facility-Administered Medications as of 05/21/2024 Medication Dose Route Frequency - NaCl 0.9% iv infusion 30 mL/hr INTRAVENOUS CONTINUOUS - [COMPLETED] lidocaine 4% 1 Drop ophthalmic solution (XYLOCAINE) 1 Drop RIGHT EYE q 5 MIN - [COMPLETED] PHENYLephrine 2.5 % 1 Drop (AK-DILATE, RADHA-SYNEPHRINE) 1 Drop RIGHT EYE q 5 MIN - [COMPLETED] tropicamide 1 % 1 Drop (MYDRIACYL) 1 Drop RIGHT EYE q 5 MIN - [COMPLETED] cyclopentolate 1 % 1 Drop (CYCLOGYL) 1 Drop RIGHT EYE q 5 MIN Outpatient Medications as of 05/21/2024 Medication Sig - ergocalciferol, vitamin D2, (VITAMIN D2 ORAL) Take by mouth. - ferrous sulfate 325 mg (65 mg iron) tablet TAKE 1 TABLET BY MOUTH ONCE A DAY *MAY TURN STOOLS BLACK* - losartan (COZAAR) 50 mg tablet Take 50 mg by mouth once daily. - carvedilol (COREG) 12.5 mg tablet Take 1 tablet by mouth twice daily with meals. - hydrochlorothiazide (HYDRODIURIL, ESIDRIX) 25 mg tablet Take 1 tablet by mouth once daily. I have interviewed and examined the patient. I have reviewed the medical record and/or the pre-anesthesia evaluation, pertinent labs, and test results. This contains updated information obtained within 48 hours of Surgery/Procedure. SIGNATURE: Zafar Thomas II, DO PATIENT NAME: Riana Quiles DATE: May 21, 2024 TIME: 11:01 AM CSN: [id number] Normal [facility] OPERATIVE NOon 05-21-2024 OPERATIVE NO HNO ID: [id number] Author: ELTON AVALOS MD Service: Ophthalmology Author Type: Physician Type: Operative Report Filed: 05/21/2024 11:58 Note Text: OPERATIVE/PROCEDURE REPORT Patient Name: Riana Quiles LOG ID: [id number] Surgery/Procedure Date: 05/21/2024 Incision/Procedure Start Time: 11:46 AM Incision Close/Procedure End Time: 11:56 AM Surgeon(s)/Proceduralist(s) and Registered Nursing Professor(s): Surgeons and Role: * Elton Avalos MD - Primary Procedure(s): Procedure(s) (LRB): PHACOEMULSIFICATION CATARACT IMPLANT INTRAOCULAR LENS W/O ENDOSCOPIC CYCLOPHOTOCOAGULATION (Right) OPHTHALMIC BIOMETRY BY PARTIAL COHERENCE INTERFEROMETRY W/INTRAOCULAR LENS POWER CALCULATION (Right) Preoperative Diagnosis: Pre-Op Diagnosis Codes: * Combined forms of age-related cataract of right eye Postoperative Diagnosis: same Operative Indications: The patient has a functionally significant cataract. The risks, benefits, and alternatives of cataract extraction with intraocular lens implantation were discussed with the patient who agreed to have the procedure done. Anesthesia: Monitored Anesthesia Care Procedure Details: Preoperatively, 2% lidocaine gel was instilled into the operative eye. The patient was taken to the operating room in a supine position on the operating table. The operative eye was then prepped with povidone-iodine and draped in the usual sterile fashion for intraocular surgery. Under the operating microscope, a temporal paracentesis was created. A small amount of preservative-free 1% lidocaine was instilled into the anterior chamber. The anterior chamber was then deepened with Viscoat. A temporal triplanar clear corneal incision was created with a 2.4 mm keratome. A cystitome and Utrata forceps were used to fashion a continuous curvilinear capsulorrhexis. Balanced salt solution was used to hydrodissect and hydrodelineate the nucleus. The phacoemulsification tip was introduced into the eye, and anterior cortex was aspirated. The nucleus was removed with CDE 13.71 . Irrigation and aspiration was used to remove residual cortex. The capsular bag was examined and found to be intact. The anterior chamber was deepened with Provisc, and a 20.5 diopter, model clareon lens was injected into the capsular bag. Irrigation and aspiration was used to remove residual viscoelastic. The wounds were hydrated, examined, and found to be watertight. 0.1 cc of cefuroxime was injected into the anterior chamber. The drapes were removed, and ofloxacin 0.3% was instilled into the operative eye. The patient was taken to the recovery area in stable condition. No qualified resident/fellow was available. Estimated Blood Loss: minimal Specimens: * No specimens in log * Implantable Devices: Implant Name Type Inv. Item Serial No. Manager In Training Lot No. LRB No. Used Action Model No. [id number].[id number] [employer] - [id number] Intraocular Lens [id number] [employer] [id number] [employer] Right 1 Implanted [id number] I have reviewed the images and report from the Ophthalmic Biometry 05/21/2024 to determine the Intraocular lens Power Calculation for the IOL lens implant. I have interpreted and agree with the calculation of the IOL as listed below. Drains: None Complications: None Elton Avalos MD May 21, 2024 11:57 AM Normal [facility] HISTORY PHYSICALon HISTORY PHYSICAL HNO ID: [id number] Author: NATALY MARTIN APRN.CNP Service: ? Author Type: Nurse Practitioner Type: H&P Filed: 05/11/2024 13:20 Note Text: HISTORY AND PHYSICAL EXAMINATION SERVICE DATE: 05/11/2024 SERVICE TIME: 12:49 PM PRIMARY CARE PHYSICIAN: Rosita Schaffer CNP, STEPHANIE REASON FOR VISIT: Riana Quiles is a 79 year old female who is scheduled for Right - PHACOEMULSIFICATION CATARACT IMPLANT INTRAOCULAR LENS W/O ENDOSCOPIC CYCLOPHOTOCOAGULATION Right - OPHTHALMIC BIOMETRY BY PARTIAL COHERENCE INTERFEROMETRY W/INTRAOCULAR LENS POWER CALCULATION at the request of Dr. Elton Avalos for consultation. My final recommendation will be communicated back to the requesting physician by way of shared medical record or letter. Assessment Patient has the following medical conditions which may affect kei-operative course: Parkinson disease (HCC) Assessment: Controlled on sinmet +Tremors Follows with PCP Primary hypertension Assessment: Stable on medication 161/90 in office today Follows with PCP Bipolar affective disorder in remission (HCC) Assessment: Colon cancer ([facility]) Assessment: s/p colectomy No known recurrence Other hyperlipidemia Assessment: On Statin Follows with PCP Dietz Activity Status Index: METS: Walk indoors, such as around the house (1.75 METs) Do light work around the house, such as dusting or washing dishes (2.70 METs) Take care of self; that is eating, dressing, bathing, using the toilet (2.75 METs) Walk a block or two on level ground (2.75 METs) DASI Score: 9.95 Patient denies any chest pain or undue shortness of breath with the above physical activity. STOP-Bang Score: Has or is being treated for high blood pressure Patient over 50 years old Denies snoring loudly Denies feeling tired, fatigued, or sleepy during the daytime Has not been observed to stop breathing or choking/gasping during sleep BMI less than or equal to 35 kg/m2 Does not have a large neck Non-male patient STOP-Bang Score: 2 [id number] Score: Age: <65 Sex: female CHF history: No Hypertension history: Yes Stroke/TIA/thromboembolism history: No Vascular disease history: No Diabetes history: No [id number] Score: 2 ARISCAT Score: Age: 51-80 Preoperative SpO2: >=96% Respiratory infection in the last month: No Preoperative anemia: No Surgical incision: peripheral Duration of surgery: <2 hrs Emergency procedure: No ARISCAT Score: 3 ANESTHESIA FINDINGS: Intubation History: No history of difficult intubation Significant Anesthesia Considerations: none Airway History: No history of difficult airway Airway Exam: General: Normal appearance There is no height or weight on file to calculate BMI. Mallampati Score is CLASS III ULBT: Class I - Lower incisors can bite the upper lip above the ed line Neck: Normal appearance and function, Distance from hyoid to mentum during neck extension is at least 3 finger breaths Mouth: Normal tongue size and Mouth opening greater than 2 finger breaths Dentition: Intact Airway History: No abnormal airway history Planned Anesthetic: Per anesthesia choice Prepared for surgery: This patient is optimally prepared for surgery. CONSULTS: Patient does not require consults for optimization at this time. The Following Tests/Procedures Have Been Initiated: Labs not indicated per [facility] protocol, EKG not indicated per [facility] protocol Planned Anesthetic: Per anesthesia choice Subjective CHIEF COMPLAINT: Visual Changes HPI: 79 year old year old presents today with complaints of difficulty with vision. Found to have cataract on exam. Denies pain. No relieving factors. PAST MEDICAL HISTORY Diagnosis Date Anemia Benign breast lumps Chest pain Colon cancer (HCC) COPD (chronic obstructive pulmonary disease) (HCC) DDD (degenerative disc disease), lumbar GERD (gastroesophageal reflux disease) Heart murmur HTN (hypertension) Parkinson's disease (HCC) Thyroid nodule PAST SURGICAL HISTORY Procedure Laterality Date PAST SURGICAL HISTORY OF 1999 partial colon resection PAST SURGICAL HISTORY OF removal of breast lumps FAMILY HISTORY Problem Relation Age of Onset Hypertension Mother Alzheimer's Disease Mother Cancer Father Bone Hypertension Father Prostate Cancer Father Lung Cancer Father Hypertension Sister Cancer Sister melanoma No Ocular Disease Other Difficulty with anesthesia No Family History SOCIAL HISTORY: Social History Tobacco Use Smoking status: Never Passive exposure: Past Smokeless tobacco: Never Vaping Use Vaping status: Never Used Substance Use Topics Alcohol use: No Drug use: No Prior to Admission medications as of 05/11/24 1253 Medication Sig Last Dose Taking carbidopa-levodopa (SINEMET 25-100) 25-100 mg per tablet Take 1 tablet by mouth three times a day (at 7:00 am, 11:00 am, and 3:00 pm) Taking Yes Cholecalcifer (more content not included)... Normal [facility] IOL BIOMETRY W/ IOL CALC OU (BOTH EYES)on 05-11-2024 [facility] Radiology Study observation (narrative) [facility] Yanci 04-10-2024 MARYSE Telephone (OPHTLN) RIANA QUILES ([id number]) 1945 F Date Time Provider Department 04/10/24 ELTON AVALOS During your visit today, we recorded the following information about you: Malaika Rendon 04/10/2024 4:21 PM Signed Called and LVM for patient to call [phone] to schedule surgery. Cataract: Right eye (OD) then Left eye (OS) AIM: PLANO both eyes Guarded prognosis due to Epiretinal membrane / early Age related macular degeneration No h/o refractive surgery No CL's Malaika Rendon 04/11/2024 3:51 PM Signed Patient returned call to schedule surgery. Called and spoke to patient and scheduled surgery in [place] 05/21 OD and 06/19 OS. Appointment list mailed. Allergies As of Date: 04/10/2024 Noted Allergy Reaction BEE POLLEN 04/09/2024 16 - Unknown Date Reviewed: 04/09/2024 Reviewed by: Elton Avalos MD - Fully Assessed Reason for Visit: Schedule Surgery [1330] Prescriptions as of 04/11/2024 - ergocalciferol, vitamin D2, (VITAMIN D2 ORAL) Take by mouth. - ferrous sulfate 325 mg (65 mg iron) tablet TAKE 1 TABLET BY MOUTH ONCE A DAY *MAY TURN STOOLS BLACK* - losartan (COZAAR) 50 mg tablet Take 50 mg by mouth once daily. - carvedilol (COREG) 12.5 mg tablet Take 1 tablet by mouth twice daily with meals. - lisinopril (ZESTRIL, PRINIVIL) 20 mg tablet Take 1 tablet by mouth once daily. - hydrochlorothiazide (HYDRODIURIL, ESIDRIX) 25 mg tablet Take 1 tablet by mouth once daily. - aspirin, enteric coated 81 mg EC tablet Take 81 mg by mouth once daily. Problem List As Of Date: 04/10/2024 (None) Encounter Status:Closed by MALAIKA RENDON on 04/10/24 Normal [facility] CORNEAL TOPOGRAPHY PENTACAM OU (BOTH EYES)on 04-09-2024 [facility] Rad[facility] Study observation (narrative) [facility] OCT MACULA CIRRUS OU (BOTH E YES)on 04-09-2024 [facility] Radiology Study observation (narrative) [facility] OCT MACULA CIRRUS OU (BOTH E YES)on 04-04-2024 [facility] Radiology Study observation (narrative) [facility] General Surgery Office/Clini c Noteon 04-19-2022 General [...] Primary malignant neoplasm of prostate: Father. Normal [facility] Comment on above: Result Comment: Elec tronically Signed By: Tello DELGADO MD\.br\Date and Time Signed: 04/19/22 16:49 EST Ambulatory Visit Summaryon 1 Ambulatory Visit Summary RIANA QUILES :1945 Visit Date:03/31/2022 Ambulatory Visit Instructions Your Care Team Attending Physician - Tello DELGADO MD Primary Care Physician - ROSITA SCHAFFER [...] Spondylolisthesis of lumbar region Thyroid nodule Normal [facility] Reminderson 03-31-2022 Reminders - From: Yolette Cordero LPN To: [facility] - Clinical; Sent: 03/31/2022 15:07:34 EDT Show up: 02/09/2032 07:00:00 EDT Subject: colonoscopy recall Due Date/Time: 03/10/2032 07:00:00 EDT Reminder/Recall Patient is due for screening colonoscopy 03/10/2032. Normal [facility] Outside Colonoscopyon 2021 Outside Colonoscopy [id number]#1.00CD:127 Normal [facility] Pathology Noteon 03-12-2022 Pathology Note [id number]#1.00CD:127 Normal [facility] Consultation Noteon 03-10-20 Consultation Note [id number]#1.00CD:127 Normal [facility] Lab Reportson 03-08-2022 Lab Reports [id number]#[id number]:127 Normal [facility] Covid-19 PCR (CVDTB)on SARS-CoV-2 (COVID-19) RNA ROBBIN+probe Ql (Unsp spec) Not detected Normal NOT DETECTED [facility] Comment on above: Result Comment: This test is not yet approved or cleared by the [place] FDA. When there are no FDA-approved or cleared tests available, and other criteria are met, FDA can make tests available under an emergency access mechanism called an Emergency Use Authorization (EUA). The EUA for this test is supported by the [place] of Health and Human Service's (HHS's) declaration [...] consistent with SARS-CoV-2. Performed By: #### [facility] #### [facility] [address] [place] [address] Dr. Darius Zepeda Physician Orderon 02-17-2022 Physician Order [id number]#[id number]:127 Normal [facility] Ambulatory Visit Summaryon 0 02-16-2022 Ambulatory Visit Summary JANET QUILESZBIGNIEW Peres :1945 Visit Date:02/16/2022 Ambulatory Visit Instructions Your [...] Spondylolisthesis of lumbar region Thyroid nodule Normal [facility] US THYROID FN ASP BXon 02-12 THYROID FN ASP BX Begin Addendum #1 COLLECTED DATE/TIME: 02/02/2022 12:58 EDT Final Diagnosis Report for [facility] [place] [place] (A/B) LEFT THYROID SUPERIOR NODULE, ULTRASOUND-GUIDED [...] that report was present in the office (BM). Original Report EXAMINATION: US THYROID FN ASP [...] (FNA). 2. Pathology results are pending. Normal [facility] B2 MICROGLOBULIN Bon 022 Ysuh-7-Xhjuskazqdr in [Mass/Vol] 2.9 ug/mL <3.1 mg/L [facility] CBC W Auto Differential pane l (Bld)on 01-25-2022 Abs Immature Gran 0.03 k/uL <0.10 k/uL [facility] Basophils (Bld) [#/Vol] 0.04 10*3/uL <0.11 k/uL [facility] Basophils/100 WBC (Bld) 0.5 % [facility] Differential cell count method Nom (Bld) Auto [facility] Eosinophils (Bld) [#/Vol] 0.16 10*3/uL <0.46 k/uL [facility] Eosinophils/100 WBC (Bld) 1.9 % [facility] Erythrocyte distribution width (RBC) [Ratio] 13.8 % 11.5 - 15.0 % [facility] Hematocrit (Bld) [Volume fraction] 36.7 % 36.0 - 46.0 % [facility] Hemoglobin (Bld) [Mass/Vol] 11.5 g/dL 11.5 - 15.5 g/dL [facility] Immature Gran % 0.4 % [facility] Lymphocytes (Bld) [#/Vol] 2.10 10*3/uL 1.00 - 4.00 k/uL [facility] Lymphocytes/100 WBC (Bld) 24.9 % [facility] MCH (RBC) [Entitic mass] 25.9 pg Low 26.0 - 34.0 pg [facility] MCHC (RBC) [Mass/Vol] 31.3 g/dL 30.5 - 36.0 g/dL [facility] MCV (RBC) [Entitic vol] 82.7 fL 80.0 - 100.0 fL [facility] Monocytes (Bld) [#/Vol] 0.84 10*3/uL <0.87 k/uL [facility] Monocytes/100 WBC (Bld) 10.0 % [facility] Neutrophils (Bld) [#/Vol] 5.26 10*3/uL 1.45 - 7.50 k/uL [facility] Neutrophils/100 WBC (Bld) 62.3 % [facility] Nucleated RBC (Bld) [#/Vol] <0.01 k/uL [facility] Nucleated RBC/100 WBC (Bld) [Ratio] 0.0 /100 WBC [facility] Platelet mean volume (Bld) [Entitic vol] 9.2 fL 9.0 - 12.7 fL [facility] Platelets (Bld) [#/Vol] 199 10*3/uL 150 - 400 k/uL [facility] RBC (Bld) [#/Vol] 4.44 10*6/uL 3.90 - 5.2 0 m/uL [facility] WBC (Bld) [#/Vol] 8.43 10*3/uL 3.70 - 11.00 k/uL [facility] Calcium.ionized [Moles/Vol]o n 01-25-2022 Calcium.ionized (Bld) [Mass/Vol] 1.22 mmol/L 1.08 - 1.30 mmol/L [facility] Calcium.ionized adjusted to pH 7.4 (Bld) [Moles/Vol] 1.22 mmol/L 1.08 - 1.30 mmol/L [facility] Comprehensive metabolic 2000 panelon 01-25-2022 Albumin [Mass/Vol] 4.1 g/dL 3.9 - 4.9 g/dL [facility] ALP [Catalytic activity/Vol] 93 U/L 34 - 123 U/L [facility] ALT [Catalytic activity/Vol] 11 U/L 7 - 38 U/L [facility] Anion gap [Moles/Vol] 9 mmol/L 9 - 18 mmol/L [facility] AST [Catalytic activity/Vol] 14 U/L 13 - 35 U/L [facility] Bilirubin [Mass/Vol] 0.2 mg/dL 0.2 - 1.3 mg/dL [facility] Calcium [Mass/Vol] 9.5 mg/dL 8.5 - 10. 2 mg/dL [facility] Chloride [Moles/Vol] 104 mmol/L 97 - 105 mmol/L [facility] CO2 [Moles/Vol] 28 mmol/L 22 - 30 mmol/L [facility] Creatinine [Mass/Vol] 0.89 mg/dL 0.58 - 0.96 mg/dL [facility] Estimated Glomerular Filtration Rate 68 mL/min/1.73m >=60 mL/min/1.73 m [facility] Glucose [Mass/Vol] 97 mg/dL 74 - 99 mg/dL [facility] Potassium [Moles/Vol] 4.1 mmol/L 3.7 - 5.1 mmol/L [facility] Protein [Mass/Vol] 6.8 g/dL 6.3 - 8.0 g/dL [facility] Sodium [Moles/Vol] 141 mmol/L 136 - 144 mmol/L [facility] Urea nitrogen [Mass/Vol] 27 mg/dL High 7 - 21 mg/dL [facility] LD LACTATE DEHYDROon 022 LDH [Catalytic activity/Vol] 179 U/L 135 - 214 U/L [facility] PHOSPHORUS INORGANICon 01-25 Phosphate [Mass/Vol] 3.9 mg/dL 2.7 - 4.8 mg/dL [facility] URIC ACID BLOODon 01-25-2022 Urate [Mass/Vol] 5.4 mg/dL 2.5 - 6.6 mg/dL [facility] Physician Referralon 022 Physician Referral [id number]#1.00CD:127 Normal [facility] US THYROIDon 01-11-2022 US THYROID [...] fine-needle aspiration of both nodules. TI-RADS: The [employer] [place] TI-RADS committee's white paper recommendations for thyroid lesions classified as TR4 (moderately suspicious) are listed below: > 1.0 cm. Follow-up ultrasound in 1, 2, 3, and 5 years. > 1.5 cm. FNA. J. Am Mat Radiol 2017;14:587-595. TI-RADS: The [place] [employer] TI-RADS committee's white paper recommendations for thyroid lesions classified as TR5 (highly suspicious) are listed below: > 0.5 cm. Annual ultrasound follow-up for up to 5 years. > 1.0 cm. FNA. J. Am Mat Radiol 2017;14:587-595. Electronically authenticated by: BIRGIT GERONIMO Date: 2022-01-11 07:45 Normal [facility] Glucose Poct Glucometerson 0 12-30-2021 Glucose [Mass/Vol] 95 mg/dL Normal [facility] Comment on above: Result Comment: [place] Glucose Reference Range is dependent on time and content of last meal. Glucose of more than 200 mg/dL in a nonstressed, ambulatory subject supports the diagnosis of Diabetes Mellitus. PERFORMED BY: [place] [id number] PATHOLOGIST CLINICAL NURSING PROFESSOR FLOYD LOPEZ M.D. Performed By: #### G LUSHIRA #### Point of Care testing , PET tumor init tx strat sb-m [facility] 12-30-2021 PET tumor init tx strat sb-mt [facility] Main [address] [address] Nuclear Medicine Report Signed Patient: Riana Quiles MR#: [id number] : 1945 Acct:[id number] Age/Sex: 76 / F ADM Date: 12/30/21 Loc: Room: Type: [facility] Attending Dr: Rosita Schaffer Copies to: [...] Blake Hickey M.D.12/30/2021 2:30 PM Dictation Location: [place] [address] Transcribed By: SONYA 12/30/21 1430 Dictated By: Blake Hickey DO 12/30/21 1411 Signed By: 12/30/21 1430 [facility] MG MAMM RT DIAG FUon 022 MG MAMM RT DIAG FU Patient: LONNIE QUILES Exam Date: 12/16/2021 : 1945 Gender:F Ordering : STEPHANIE ROSITATyra SCHAFFER [facility] Admission #: [id number] Family : Order #: [id number] CLICK HERE TO VIEW EXAM RADIOLOGY REPORT [...] Treatments None Family Cancers None LOCATION: [facility] BREAST COMPOSITION: Heterogeneously dense,which may obscure [...] LUMP SHOULD BE BIOPSIED. Dictated by: Birgit Geronimo MD on 12/16/2021 at 15:19 Approved by: Birgit Geronimo MD on 12/16/2021 at 15:21 Normal [facility] US BREAST RIGHT LIMITEDon US BREAST RIGHT LIMITED Patient: RIANA QUILES Exam Date: 12/16/2021 : 1945 Gender:F Ordering : STEPHANIE SCHAFFER [facility] Admission #: [id number] Family : Order #: [id number] CLICK HERE TO VIEW EXAM RADIOLOGY REPORT [...] Treatments None Family Cancers None LOCATION: [facility] BREAST COMPOSITION: Heterogeneously dense,which may obscure [...] LUMP SHOULD BE BIOPSIED. Dictated by: Birgit Geronimo MD on 12/16/2021 at 15:19 Approved by: Birgit Geronimo MD on 12/16/2021 at 15:21 Normal [facility] HLA B 27on 12-11-2021 HLA-B27 Negative Normal [facility] Comment on above: Result Comment: HLA- B*27 Negative B27 allele interpretation for all loci based on IMGT/HLA database version 3.44 This test was developed and its performance characteristics determined by [employer]. It has not been cleared or approved by the Food and Drug Administration. [facility] CLIA ID Number [id number] . This test was performed using PCR (Polymerase Chain Reaction)/SSOP (Sequence Specific Oligonucleotide Probes) technique. SBT (Sequence Based Typing) and/or SSP (Sequence Specific Primers) may be used as supplemental methods when necessary. Please contact [facility] Customer Service at if you have any questions. . Director of [facility] Laboratory Dr Floyd Trammell, PhD Performed By: #### H LA27 #### [facility] [address] [place] [address] Dr. Darius Zepeda MG MAMM SCREEN 3D THIERRY CADon 12-11-2021 MG MAMM SCREEN 3D THIERRY CAD Patient: RIANA QUILES Exam Date: 12/11/2021 : 1945 Gender:F Ordering : STEPHANIE ROSITA SCHAFFER [facility] Admission #: [id number] Family : Order #: [id number] CLICK HERE TO VIEW EXAM RADIOLOGY REPORT PROCEDURE: MAMMOGRAM SCREENING 3D BILATERAL CAD COMPARISON: None. INDICATIONS: Screening mammography Calculator Name NCI Breast Cancer Risk Assessment Tool 5 Year Breast Cancer Risk 2.00% Lifetime Breast Cancer Risk 4.50% Personal Breast Cancer No Personal Ovarian Cancer No Treatments None Family Cancers None LOCATION: [facility] BREAST COMPOSITION: Heterogeneously dense,which may obscure [...] LUMP SHOULD BE BIOPSIED. Dictated by: Carmel Ruiz M.D. on 12/11/2021 at 15:25 Approved by: Carmel Ruiz M.D. on 12/11/2021 at 15:30 Normal [facility] XR CHEST 2 Von 12-11-2021 XR [...] and mild cardiomegaly. Electronically authenticated by: CARMEL RUIZ Date: 2021-12-11 18:05 Normal [facility] IMMUNOFIXATION (LIAN), URINEo n 12-09-2021 LIAN Interpretation:U Comment Normal [facility] Comment on above: Result Comment: No m onoclonality detected. Performed By: #### L DH, BMP, LIVER, CRP #### [facility] [address] [place] [address] [address] Darius Zepeda GIGI by IFAon 12-08-2021 Antinuclear Antibodies, IFA Negative Normal [facility] Comment on above: Result Comment: Nega tive <1:80 Borderline 1:80 Positive >1:80 ICAP nomenclature: AC-0 For more information about Hep-2 cell patterns use ANApatterns.org, the official website for the International Consensus on Antinuclear Antibody (GIGI) Patterns (ICAP). Performed By: #### L DH, BMP, LIVER, CRP #### [facility] [address] [place] [address] Dr. Darius Zepeda IMMUNOFIXATION (LIAN), SERUMo n 12-08-2021 IMMUNOFIXATION RESULT Comment Abnormal [facility] Comment on above: Result Comment: Immu nofixation shows IgM monoclonal protein with kappa light chain specificity. Performed By: #### L DH, BMP, LIVER, CRP #### [facility] [address] [place] [address] [address] Darius Zepeda Immunoglobulin A, Qn, Serum 157 mg/dL Normal 64-422 [facility] Comment on above: Performed By: #### L DH, BMP, LIVER, CRP #### [facility] [address] [place] [address] [address] Darius Zepeda Immunoglobulin G, Qn, Serum 1264 mg/dL Normal [phone] [facility] Comment on above: Performed By: #### L DH, BMP, LIVER, CRP #### [facility] [address] [place] [address] [address] Darius Zepeda Immunoglobulin M, Qn, Serum 364 mg/dL Critically high 26-217 [facility] Comment on above: Performed By: #### L DH, BMP, LIVER, CRP #### [facility] [address] [place] [address] [address] Darius Zepeda CBC AUTO DIFFon 12-04-2021 BASO # 0.1 103/ul Normal 0.0-0.1 [facility] Comment on above: Performed By: #### L DH, BMP, LIVER, CRP #### [facility] [address] [place] [address] Dr. Darius Zepeda Basophils/100 WBC (Bld) 0.6 % Normal 0.2-2.[address] [facility] Comment on above: Performed By: #### L DH, BMP, LIVER, CRP #### [facility] [address] [place] [address] Dr. Darius Zepeda EO # 0.1 103/ul Normal 0.0-0.[address] [facility] Comment on above: Performed By: #### L DH, BMP, LIVER, CRP #### [facility] [address] [place] [address] Dr. Darius Zepeda Eosinophils/100 WBC (Bld) 1.0 % Normal 0.9-7.0 [facility] Comment on above: Performed By: #### L DH, BMP, LIVER, CRP #### [facility] [address] [place] [address] Dr. Darius Zepeda Erythrocyte distribution width (RBC) [Ratio] 14.0 % Normal 11.0-15.0 [facility] Comment on above: Performed By: #### L DH, BMP, LIVER, CRP #### [facility] [address] [place] [address] Dr. Darius Zepeda Hematocrit (Bld) [Volume fraction] 35.8 % Critically low 36.0-48.0 [facility] Comment on above: Performed By: #### L DH, BMP, LIVER, CRP #### [facility] [address] [place] [address] Dr. Darius Zepeda Hemoglobin (Bld) [Mass/Vol] 11.2 g/dL Critically low 12.0-16.0 [facility] Comment on above: Performed By: #### L DH, BMP, LIVER, CRP #### [facility] [address] [place] [address] Dr. Darius Zepeda IG # 0.02 10e3/ul Normal 0.00-0.[address] [facility] Comment on above: Performed By: #### L DH, BMP, LIVER, CRP #### [facility] [address] [place] [address] Dr. Darius Zepeda IG % 0.2 % Normal 0.0-0.[address] [facility] Comment on above: Performed By: #### L DH, BMP, LIVER, CRP #### [facility] [address] [place] [address] Dr. Darius Zepeda LYMPH # 2.2 103/ul Normal 1.2-3.[address] [facility] Comment on above: Performed By: #### L DH, BMP, LIVER, CRP #### [facility] [address] [place] [address] Dr. Darius Zepeda Lymphocytes/100 WBC (Bld) 25.1 % Normal 20.5-60.0 [facility] Comment on above: Performed By: #### L DH, BMP, LIVER, CRP #### [facility] [address] [place] [address] Dr. Darius Zepeda MANUAL DIFF REQ NO Normal [facility] Comment on above: Performed By: #### L DH, BMP, LIVER, CRP #### [facility] [address] [place] [address] Dr. Darius Zepeda MCH (RBC) [Entitic mass] 25.6 pg Critically low 26.7-34.0 [facility] Comment on above: Performed By: #### L DH, BMP, LIVER, CRP #### [facility] [address] [place] [address] Dr. Darius Zepeda MCHC (RBC) [Mass/Vol] 31.3 g/dL Normal 29.9-35.[address] [facility] Comment on above: Performed By: #### L DH, BMP, LIVER, CRP #### [facility] [address] [place] [address] Dr. Darius Zepeda MCV (RBC) [Entitic vol] 81.7 fL Normal 81.0-99.[address] [facility] Comment on above: Performed By: #### L DH, BMP, LIVER, CRP #### [facility] [address] [place] [address] Dr. Darius Zepeda MONO # 0.7 103/ul Normal 0.3-0.8 [facility] Comment on above: Performed By: #### L DH, BMP, LIVER, CRP #### [facility] [address] [place] [address] Dr. Darius Zepeda Monocytes/100 WBC (Bld) 7.7 % Normal 1.7-12.[address] [facility] Comment on above: Performed By: #### L DH, BMP, LIVER, CRP #### [facility] [address] [place] [address] Dr. Darius Zepeda NEUT # 5.7 103/ul Normal 1.4-6.5 [facility] Comment on above: Performed By: #### L DH, BMP, LIVER, CRP #### [facility] [address] [place] [address] Dr. Darius Zepeda Neutrophils/100 WBC (Bld) 65.4 % Normal 43.0-75.0 [facility] Comment on above: Performed By: #### L DH, BMP, LIVER, CRP #### [facility] [address] [place] [address] Dr. Darius Zepeda Platelet mean volume (Bld) [Entitic vol] 10.2 fL Normal 9.5-13.[address] [facility] Comment on above: Performed By: #### L DH, BMP, LIVER, CRP #### [facility] [address] [place] [address] Dr. Darius Zepeda PLT 220 103/ul Normal 150-[address] [facility] Comment on above: Performed By: #### L DH, BMP, LIVER, CRP #### [facility] [address] [place] [address] Dr. Darius Zepeda RBC 4.38 106/ul Normal 4.20-5.[address] [facility] Comment on above: Performed By: #### L DH, BMP, LIVER, CRP #### [facility] [address] [place] [address] Dr. Darius Zepeda WBC 8.7 103/ul Normal 4.0-11.0 [facility] Comment on above: Performed By: #### L DH, BMP, LIVER, CRP #### [facility] [address] [place] [address] Dr. Darius Zepeda CRPon 12-04-2021 CRP 1.1 mg/dL Critically high <=1.0 [facility] Comment on above: Performed By: #### L DH, BMP, LIVER, CRP #### [facility] [address] [place] [address] Dr. Darius Zepeda LDHon 12-04-2021 LDH 172 U/L Normal 81-234 [facility] Comment on above: Performed By: #### L DH, BMP, LIVER, CRP #### [facility] [address] [place] [address] Dr. Darius Zepeda LIVER PROFILEon 12-04-2021 Albumin [Mass/Vol] 3.7 g/dL Normal 3.4-5.0 [facility] Comment on above: Performed By: #### L DH, BMP, LIVER, CRP #### [facility] [address] [place] [address] Dr. Darius Zepeda Albumin/Globulin [Mass ratio] 0.9 {ratio} Normal [facility] Comment on above: Performed By: #### L DH, BMP, LIVER, CRP #### [facility] [address] [place] [address] Dr. Darius Zepeda ALP [Catalytic activity/Vol] 80 U/L Normal 46-[address] [facility] Comment on above: Performed By: #### L DH, BMP, LIVER, CRP #### [facility] [address] [place] [address] Dr. Darius Zepead ALT [Catalytic activity/Vol] 22 U/L Normal 14-[address] [facility] Comment on above: Performed By: #### L DH, BMP, LIVER, CRP #### [facility] [address] [place] [address] Dr. Darius Zepeda AST [Catalytic activity/Vol] 15 U/L Normal 15-[address] [facility] Comment on above: Performed By: #### L DH, BMP, LIVER, CRP #### [facility] [address] [place] [address] Dr. Darius Zepeda BILI, CONJUGATED 0.1 mg/dL Normal 0.0-0.2 [facility] Comment on above: Performed By: #### L DH, BMP, LIVER, CRP #### [facility] [address] [place] [address] Dr. Darius Zepeda Bilirubin [Mass/Vol] 0.6 mg/dL Normal 0.2-1.0 [facility] Comment on above: Performed By: #### L DH, BMP, LIVER, CRP #### [facility] [address] [place] [address] Dr. Darius Zepeda Globulin (S) [Mass/Vol] 3.9 g/dL Normal [facility] Comment on above: Performed By: #### L DH, BMP, LIVER, CRP #### [facility] [address] [place] [address] Dr. Darius Zepeda Protein [Mass/Vol] 7.6 g/dL Normal 6.4-8.[address] [facility] Comment on above: Performed By: #### L DH, BMP, LIVER, CRP #### [facility] [address] [place] [address] Dr. Darius Zepeda PROF CHEM 8 (BAS METB)on Anion gap [Moles/Vol] 12.8 mmol/L Normal [facility] Comment on above: Performed By: #### L DH, BMP, LIVER, CRP #### [facility] [address] [place] [address] Dr. Darius Zepeda Calcium [Mass/Vol] 8.7 mg/dL Normal 8.5-10.[address] [facility] Comment on above: Performed By: #### L DH, BMP, LIVER, CRP #### [facility] [address] [place] [address] Dr. Darius Zepeda Chloride [Moles/Vol] 105 mmol/L Normal 98-[address] [facility] Comment on above: Performed By: #### L DH, BMP, LIVER, CRP #### [facility] [address] [address] [address] Darius Zepeda CO2 [Moles/Vol] 27.1 mmol/L Normal 21.0-32.[address] [facility] Comment on above: Performed By: #### L DH, BMP, LIVER, CRP #### [facility] [address] [address] [address] Darius Zepeda Creatinine [Mass/Vol] 1.01 mg/dL Normal 0.55-1.[address] [facility] Comment on above: Performed By: #### L DH, BMP, LIVER, CRP #### [facility] [address] [address] [address] Darius Zepeda EGFR-AF PORTUGUESE >60 Normal >=[address] [facility] Comment on above: Performed By: #### L DH, BMP, LIVER, CRP #### [facility] [address] [place] [address] Dr. Darius Zepeda EGFR-NON AF PORTUGUESE 54 mL/min/1.73m2 Critically low >=[address] [facility] Comment on above: Performed By: #### L DH, BMP, LIVER, CRP #### [facility] [address] [address] [address] Darius Zepeda Glucose [Mass/Vol] 96 mg/dL Normal 74-[address] [facility] Comment on above: Performed By: #### L DH, BMP, LIVER, CRP #### [facility] [address] [place] [address] Dr. Darius Zepeda Potassium [Moles/Vol] 3.9 mmol/L Normal 3.5-5.[address] [facility] Comment on above: Performed By: #### L DH, BMP, LIVER, CRP #### [facility] [address] [place] [address] Dr. Darius Zepeda Sodium [Moles/Vol] 141 mmol/L Normal 136-[address] [facility] Comment on above: Performed By: #### L DH, BMP, LIVER, CRP #### [facility] [address] [place] [address] Dr. Darius Zepeda Urea nitrogen [Mass/Vol] 24.0 mg/dL Critically high 7.0-18.[address] [facility] Comment on above: Performed By: #### L DH, BMP, LIVER, CRP #### [facility] [address] [address] [address] Darius Zepeda Urea nitrogen/Creatinin e [Mass ratio] 23.8 mg/mg Normal [facility] Comment on above: Performed By: #### L DH, BMP, LIVER, CRP #### [facility] [address] [place] [address] Dr. Darius Zepeda [facility] SED [facility] 30 mm/hr Normal <=30 [facility] Comment on above: Performed By: #### L DH, BMP, LIVER, CRP #### [facility] [address] [place] [address] Dr. Darius Zepeda UA (CLEAN/CATCH) CAD DETAILER/MICRO I F IND.on 12-04-2021 Bilirubin Ql (U) Negative Normal NEGATIVE [facility] Comment on above: Performed By: #### L DH, BMP, LIVER, CRP #### [facility] [address] [place] [address] Dr. Darius Zepeda Clarity (U) CLEAR Normal CLEAR [facility] Comment on above: Performed By: #### L DH, BMP, LIVER, CRP #### [facility] [address] [place] [address] Dr. Darius Zepeda Color (U) YELLOW Normal YELLOW [facility] Comment on above: Performed By: #### L DH, BMP, LIVER, CRP #### [facility] [address] [place] [address] Dr. Darius Zepeda Glucose Ql (U) Negative Normal NEGATIVE [facility] Comment on above: Performed By: #### L DH, BMP, LIVER, CRP #### [facility] [address] [place] [address] Dr. Darius Zepeda Hemoglobin Ql (U) Negative Normal NEGATIVE [facility] Comment on above: Performed By: #### L DH, BMP, LIVER, CRP #### [facility] [address] [place] [address] Dr. Darius Zepeda Ketones Ql (U) Negative Normal NEGATIVE [facility] Comment on above: Performed By: #### L DH, BMP, LIVER, CRP #### [facility] [address] [address] [address] Darius Zepeda LEUKOCYTES Negative Normal NEGATIVE [facility] Comment on above: Performed By: #### L DH, BMP, LIVER, CRP #### [facility] [address] [place] [address] Dr. Darius Zepeda Nitrite Ql (U) Negative Normal NEGATIVE [facility] Comment on above: Performed By: #### L DH, BMP, LIVER, CRP #### [facility] [address] [address] [address] Darius Zepeda pH (U) 7.0 [pH] Normal 5-9 [facility] Comment on above: Performed By: #### L DH, BMP, LIVER, CRP #### [facility] [address] [place] [address] Dr. Darius Zepeda SPEC GRAVITY 1.020 Normal 1.005-<=1.0 25 [facility] Comment on above: Performed By: #### L DH, BMP, LIVER, CRP #### [facility] [address] [place] [address] Dr. Darius Zepeda UA PROTEIN Negative Normal NEGATIVE/ TRACE [facility] Comment on above: Performed By: #### L DH, BMP, LIVER, CRP #### [facility] [address] [place] [address] Dr. Darius Zepeda UR MICRO IND NOT INDICATED Normal [facility] Comment on above: Performed By: #### L DH, BMP, LIVER, CRP #### [facility] [address] [place] [address] Dr. Darius Zepeda Urobilinogen Qn (U) 0.2 {Nathalia'U}/dL Normal 0.2 - 1.[address] [facility] Comment on above: Performed By: #### L DH, BMP, LIVER, CRP #### [facility] [address] [place] [address] Dr. Darius Zepeda URINE MICROSCOPIC ONLYon BACTERIA TRACE Abnormal NONE SEEN [facility] Comment on above: Performed By: #### L DH, BMP, LIVER, CRP #### [facility] [address] [place] [address] Dr. Darius Zepeda Bacteria identified Cx Nom (U) NOT INDICATED Normal [facility] Comment on above: Performed By: #### L DH, BMP, LIVER, CRP #### [facility] [address] [place] [address] Dr. Darius Zepeda CAST NONE SEEN Normal NONE SEEN [facility] Comment on above: Performed By: #### L DH, BMP, LIVER, CRP #### [facility] [address] [place] [address] Dr. Darius Zepeda Crystals LM Nom (Urine sed) NONE SEEN Normal NONE SEEN [facility] Comment on above: Performed By: #### L DH, BMP, LIVER, CRP #### [facility] [address] [place] [address] Dr. Darius Zepeda Epithelial cells LM Ql (Urine sed) MODERATE Abnormal NONE SEEN /RARE [facility] Comment on above: Performed By: #### L DH, BMP, LIVER, CRP #### [facility] [address] [place] [address] Dr. Darius Zepeda MUCOUS NONE SEEN Normal NONE SEEN [facility] Comment on above: Performed By: #### L DH, BMP, LIVER, CRP #### [facility] [address] [place] [address] Dr. Darius Zepeda RBC 0-2 Normal 0-[address] [facility] Comment on above: Performed By: #### L DH, BMP, LIVER, CRP #### [facility] [address] [place] [address] Dr. Darius Zepeda WBC 2-5 Abnormal NONE SEEN The [facility] Comment on above: Performed By: #### L DH, BMP, LIVER, CRP #### [facility] [address] [place] [address] Dr. Darius Zepeda MRI LSPINE W CONon [...] considered less likely Electronically authenticated by: BIRGIT GERONIMO Date: 2021-12-02 11:44 Normal [facility] CBC AUTO DIFFon 11-11-2021 BASO # 0.0 103/ul Normal 0.0-0.1 [facility] Comment on above: Performed By: #### C BC #### [facility] [address] [place] [address] Dr. Darius Zepeda Basophils/100 WBC (Bld) 0.5 % Normal 0.2-2.[address] [facility] Comment on above: Performed By: #### C BC #### [facility] [address] [place] [address] Dr. Darius Zepeda EO # 0.1 103/ul Normal 0.0-0.[address] [facility] Comment on above: Performed By: #### C BC #### [facility] [address] [place] [address] Dr. Darius Zepeda Eosinophils/100 WBC (Bld) 1.2 % Normal 0.9-7.0 [facility] Comment on above: Performed By: #### C BC #### [facility] [address] [place] [address] Dr. Darius Zepeda Erythrocyte distribution width (RBC) [Ratio] 13.7 % Normal 11.0-15.0 [facility] Comment on above: Performed By: #### C BC #### [facility] [address] [place] [address] Dr. Darius Zepeda Hematocrit (Bld) [Volume fraction] 35.0 % Critically low 36.0-48.0 [facility] Comment on above: Performed By: #### C BC #### [facility] [address] [place] [address] Dr. Darius Zepeda Hemoglobin (Bld) [Mass/Vol] 11.0 g/dL Critically low 12.0-16.0 [facility] Comment on above: Performed By: #### C BC #### [facility] [address] [place] [address] Dr. Darius Zepeda IG # 0.01 10e3/ul Normal 0.00-0.03 [facility] Comment on above: Performed By: #### C BC #### [facility] [address] [place] [address] Dr. Darius Zepeda IG % 0.1 % Normal 0.0-0.5 [facility] Comment on above: Performed By: #### C BC #### [facility] [address] [place] [address] Dr. Darius Zepeda LYMPH # 2.3 103/ul Normal 1.2-3.8 [facility] Comment on above: Performed By: #### C BC #### [facility] [address] [place] [address] Dr. Darius Zepeda Lymphocytes/100 WBC (Bld) 27.5 % Normal 20.5-60.[address] [facility] Comment on above: Performed By: #### C BC #### [facility] [address] [place] [address] Dr. Darius Zepeda MANUAL DIFF REQ NO Normal [facility] Comment on above: Performed By: #### C BC #### [facility] [address] [place] [address] Dr. Darius Zepeda MCH (RBC) [Entitic mass] 25.9 pg Critically low 26.7-34.0 [facility] Comment on above: Performed By: #### C BC #### [facility] [address] [address] [address] Darius Zepeda MCHC (RBC) [Mass/Vol] 31.4 g/dL Normal 29.9-35.2 [facility] Comment on above: Performed By: #### C BC #### [facility] [address] [address] [address] Darius Zepeda MCV (RBC) [Entitic vol] 82.4 fL Normal 81.0-99.0 [facility] Comment on above: Performed By: #### C BC #### [facility] [address] [place] [address] Dr. Darius Zepeda MONO # 0.8 103/ul Normal 0.3-0.8 [facility] Comment on above: Performed By: #### C BC #### [facility] [address] [place] [address] Dr. Darius Zepeda Monocytes/100 WBC (Bld) 9.1 % Normal 1.7-12.0 [facility] Comment on above: Performed By: #### C BC #### [facility] [address] [place] [address] Dr. Darius Zepeda NEUT # 5.2 103/ul Normal 1.4-6.5 [facility] Comment on above: Performed By: #### C BC #### [facility] [address] [place] [address] Dr. Darius Zepeda Neutrophils/100 WBC (Bld) 61.6 % Normal 43.0-75.[address] [facility] Comment on above: Performed By: #### C BC #### [facility] [address] [address] [address] Darius Zepeda Platelet mean volume (Bld) [Entitic vol] 9.6 fL Normal 9.5-13.[address] [facility] Comment on above: Performed By: #### C BC #### [facility] [address] [address] [address] Darius Zepeda PLT 204 103/ul Normal 150-[address] [facility] Comment on above: Performed By: #### C BC #### [facility] [address] [place] [address] Dr. Darius Zepeda RBC 4.25 106/ul Normal 4.20-5.[address] [facility] Comment on above: Performed By: #### C BC #### [facility] [address] [place] [address] Dr. Darius Zepeda WBC 8.4 103/ul Normal 4.0-11.[address] [facility] Comment on above: Performed By: #### C BC #### [facility] [address] [place] [address] Dr. Darius Zepeda CRPon 11-11-2021 CRP 1.1 mg/dL Critically high <=1.0 [facility] Comment on above: Performed By: #### L DH, BMP, LIVER, CRP #### [facility] [address] [place] [address] Dr. Darius Zepeda FREE T4on 11-11-2021 Free T4 [Mass/Vol] 0.81 ng/dL Normal 0.76-1.46 [facility] Comment on above: Performed By: #### F T4 #### [facility] [address] [place] [address] Dr. Darius Zepeda PROF 14(COMP METB)on 022 Albumin [Mass/Vol] 3.4 g/dL Normal 3.4-5.0 [facility] Comment on above: Performed By: #### L DH, BMP, LIVER, CRP #### [facility] [address] [place] [address] Dr. Darius Zepeda Albumin/Globulin [Mass ratio] 0.9 {ratio} Normal [facility] Comment on above: Performed By: #### L DH, BMP, LIVER, CRP #### [facility] [address] [place] [address] Dr. Darius Zepeda ALP [Catalytic activity/Vol] 92 U/L Normal 46-[address] [facility] Comment on above: Performed By: #### L DH, BMP, LIVER, CRP #### [facility] [address] [place] [address] Dr. Darius Zepeda ALT [Catalytic activity/Vol] 23 U/L Normal 14-[address] [facility] Comment on above: Performed By: #### L DH, BMP, LIVER, CRP #### [facility] [address] [address] [address] Darius Zepeda Anion gap [Moles/Vol] 9.4 mmol/L Normal [facility] Comment on above: Performed By: #### L DH, BMP, LIVER, CRP #### [facility] [address] [address] [address] Darius Zepeda AST [Catalytic activity/Vol] 14 U/L Critically low 15-37 [facility] Comment on above: Performed By: #### L DH, BMP, LIVER, CRP #### [facility] [address] [place] [address] Dr. Darius Zepeda Bilirubin [Mass/Vol] 0.4 mg/dL Normal 0.2-1.0 [facility] Comment on above: Performed By: #### L DH, BMP, LIVER, CRP #### [facility] [address] [place] [address] Dr. Darius Zepeda Calcium [Mass/Vol] 9.0 mg/dL Normal 8.5-10.[address] [facility] Comment on above: Performed By: #### L DH, BMP, LIVER, CRP #### [facility] [address] [place] [address] Dr. Darius Zepeda Chloride [Moles/Vol] 104 mmol/L Normal 98-[address] [facility] Comment on above: Performed By: #### L DH, BMP, LIVER, CRP #### [facility] [address] [place] [address] Dr. Darius Zepeda CO2 [Moles/Vol] 30.5 mmol/L Normal 21.0-32.[address] [facility] Comment on above: Performed By: #### L DH, BMP, LIVER, CRP #### [facility] [address] [address] [address] Darius Zepeda Creatinine [Mass/Vol] 0.92 mg/dL Normal 0.55-1.02 [facility] Comment on above: Performed By: #### L DH, BMP, LIVER, CRP #### [facility] [address] [address] [address] Darius Zepeda EGFR-AF PORTUGUESE >60 Normal >=60 [facility] Comment on above: Performed By: #### L DH, BMP, LIVER, CRP #### [facility] [address] [address] [address] Darius Zepeda EGFR-NON AF PORTUGUESE 60 mL/min/1.73m2 Normal >=60 [facility] Comment on above: Performed By: #### L DH, BMP, LIVER, CRP #### [facility] [address] [place] [address] Dr. Darius Zepeda Globulin (S) [Mass/Vol] 3.7 g/dL Normal [facility] Comment on above: Performed By: #### L DH, BMP, LIVER, CRP #### [facility] [address] [place] [address] Dr. Darius Zepeda Glucose [Mass/Vol] 88 mg/dL Normal 74-106 [facility] Comment on above: Performed By: #### L DH, BMP, LIVER, CRP #### [facility] [address] [place] [address] Dr. Darius Zepeda Potassium [Moles/Vol] 3.9 mmol/L Normal 3.5-5.1 [facility] Comment on above: Performed By: #### L DH, BMP, LIVER, CRP #### [facility] [address] [address] [address] Darius Zepeda Protein [Mass/Vol] 7.1 g/dL Normal 6.4-8.[address] [facility] Comment on above: Performed By: #### L DH, BMP, LIVER, CRP #### [facility] [address] [place] [address] Dr. Darius Zepeda Sodium [Moles/Vol] 140 mmol/L Normal 136-145 [facility] Comment on above: Performed By: #### L DH, BMP, LIVER, CRP #### [facility] [address] [place] [address] Dr. Darius Zepeda Urea nitrogen [Mass/Vol] 25.0 mg/dL Critically high 7.0-18.0 [facility] Comment on above: Performed By: #### L DH, BMP, LIVER, CRP #### [facility] [address] [place] [address] Dr. Darius Zepeda Urea nitrogen/Creatinin e [Mass ratio] 27.2 mg/mg Normal [facility] Comment on above: Performed By: #### L DH, BMP, LIVER, CRP #### [facility] [address] [place] [address] Dr. Darius Zepeda SED RATE WESTERGRENon 2021 SED RATE 14 mm/hr Normal <=[address] [facility] Comment on above: Performed By: #### S EDR #### [facility] [address] [place] [address] Dr. Darius Zepeda TSHon 11-11-2021 TSH 3.474 uIU/mL Normal 0.358-3.[address] [facility] Comment on above: Performed By: #### L DH, BMP, LIVER, CRP #### [facility] [address] [place] [address] Dr. Darius Zepeda TSH RANGE SEE BELOW Normal [facility] Comment on above: Result Comment: <0.3 4 UIU/ml HYPERTHYROID 0.34-5.60 UIU/ml EUTHYROID >5.60 UIU/ml HYPOTHYROID Performed By: #### L DH, BMP, LIVER, CRP #### [facility] [address] [place] [address] Dr. Darius Zepeda MRI LSPINE WO CONon [...] significant at L2-L3 Electronically authenticated by: BIRGIT GERONIMO Date: 2021-11-04 15:15 Normal [facility] FERRITINon 06-02-2021 Ferritin [Mass/Vol] 46 ng/mL Normal 15-[address] [facility] Comment on above: Performed By: #### L DH, BMP, LIVER, CRP #### [facility] [address], [place] [address] Dr. Darius Zepeda VITAMIN B12on 06-02-2021 Cobalamin (Vitamin B12) [Mass/Vol] 637 pg/mL Normal 232-1245 [facility] Comment on above: Performed By: #### L DH, BMP, LIVER, CRP #### [facility] [address], [place] [address] Dr. Darius Zepeda GLYCOHEMOGLOBIN A1Con 2020 ADA RECOMMENDATION ADA THERAPEUTIC TARG ET 6.0 - 7.0 ACTION SUGGESTED > 7.0 Normal [facility] Comment on above: Performed By: #### L DH, BMP, LIVER, CRP #### [facility] [address] [place] [address] Dr. Darius Zepeda Glucose [Mass/Vol] 111 mg/dL Normal [facility] Comment on above: Performed By: #### L DH, BMP, LIVER, CRP #### [facility] [address] [place] [address] [address] Darius Zepeda HbA1c (Bld) [Mass fraction] 5.5 % Normal <=6.0 [facility] Comment on above: Performed By: #### L DH, BMP, LIVER, CRP #### [facility] [address] [place] [address] Dr. Darius Zepeda IRONon 06-01-2021 Iron [Mass/Vol] 55.0 ug/dL Normal 37.0-170.0 [facility] Comment on above: Performed By: #### I HO #### [facility] [address] [place] [address] Dr. Darius Zepeda TSHon 06-01-2021 TSH 3.277 uIU/mL Normal 0.470-4.[address] [facility] Comment on above: Performed By: #### L DH, BMP, LIVER, CRP #### [facility] [address] [place] [address] Dr. Darius Zepeda TSH RANGE SEE BELOW Normal [facility] Comment on above: Result Comment: <0.3 4 UIU/ml HYPERTHYROID 0.34-5.60 UIU/ml EUTHYROID >5.60 UIU/ml HYPOTHYROID Performed By: #### L DH, BMP, LIVER, CRP #### [facility] [address] [place] [address] Dr. Darius Zepeda XR LSPINE 2_3 VIEWSon [...] of lumbar spine. Electronically authenticated by: CARMEL RUIZ Date: 2021-05-26 07:10 Normal [address] [facility] CBC AUTO DIFFon 05-25-2021 BASO # 0.1 103/ul Normal 0.0-0.1 [facility] Comment on above: Performed By: #### L DH, BMP, LIVER, CRP #### [facility] [address] [place] [address] [address] Darius Zepeda Basophils/100 WBC (Bld) 0.6 % Normal 0.2-2.0 [facility] Comment on above: Performed By: #### L DH, BMP, LIVER, CRP #### [facility] [address] [place] [address] [address] Darius Zepeda EO # 0.1 103/ul Normal 0.0-0.7 [facility] Comment on above: Performed By: #### L DH, BMP, LIVER, CRP #### [facility] [address] [place] [address] [address] Darius Zepeda Eosinophils/100 WBC (Bld) 1.0 % Normal 0.9-7.0 [facility] Comment on above: Performed By: #### L DH, BMP, LIVER, CRP #### [facility] [address] [place] [address] [address] Darius Zepeda Erythrocyte distribution width (RBC) [Ratio] 14.0 % Normal 11.0-15.0 [facility] Comment on above: Performed By: #### L DH, BMP, LIVER, CRP #### [facility] [address] [place] [address] [address] Darius Zepeda Hematocrit (Bld) [Volume fraction] 38.4 % Normal 36.0-48.0 [facility] Comment on above: Performed By: #### L DH, BMP, LIVER, CRP #### [facility] [address] [place] [address] Dr. Darius Zepeda Hemoglobin (Bld) [Mass/Vol] 11.9 g/dL Critically low 12.0-16.[address] [facility] Comment on above: Performed By: #### L DH, BMP, LIVER, CRP #### [facility] [address] [place] [address] Dr. Darius Zepeda IG # 0.02 10e3/ul Normal 0.00-0.[address] [facility] Comment on above: Performed By: #### L DH, BMP, LIVER, CRP #### [facility] [address] [place] [address] Dr. Darius Zepeda IG % 0.2 % Normal 0.0-0.[address] [facility] Comment on above: Performed By: #### L DH, BMP, LIVER, CRP #### [facility] [address] [place] [address] Dr. Darius Zepeda LYMPH # 2.2 103/ul Normal 1.2-3.[address] [facility] Comment on above: Performed By: #### L DH, BMP, LIVER, CRP #### [facility] [address] [place] [address] Dr. Darius Zepeda Lymphocytes/100 WBC (Bld) 24.0 % Normal 20.5-60.[address] [facility] Comment on above: Performed By: #### L DH, BMP, LIVER, CRP #### [facility] [address] [place] [address] Dr. Darius Zepeda MANUAL DIFF REQ NO Normal [facility] Comment on above: Performed By: #### L DH, BMP, LIVER, CRP #### [facility] [address] [place] [address] Dr. Darius Zepeda MCH (RBC) [Entitic mass] 25.5 pg Critically low 26.7-34.0 [facility] Comment on above: Performed By: #### L DH, BMP, LIVER, CRP #### [facility] [address] [place] [address] Dr. Darius Zepeda MCHC (RBC) [Mass/Vol] 31.0 g/dL Normal 29.9-35.[address] [facility] Comment on above: Performed By: #### L DH, BMP, LIVER, CRP #### [facility] [address] [place] [address] Dr. Darius Zepeda MCV (RBC) [Entitic vol] 82.2 fL Normal 81.0-99.[address] [facility] Comment on above: Performed By: #### L DH, BMP, LIVER, CRP #### [facility] [address] [place] [address] Dr. Darius Zepeda MONO # 0.6 103/ul Normal 0.3-0.[address] [facility] Comment on above: Performed By: #### L DH, BMP, LIVER, CRP #### [facility] [address] [place] [address] Dr. Darius Zepeda Monocytes/100 WBC (Bld) 6.5 % Normal 1.7-12.[address] [facility] Comment on above: Performed By: #### L DH, BMP, LIVER, CRP #### [facility] [address] [place] [address] Dr. Darius Zepeda NEUT # 6.1 103/ul Normal 1.4-6.[address] [facility] Comment on above: Performed By: #### L DH, BMP, LIVER, CRP #### [facility] [address] [place] [address] Dr. Darius Zepeda Neutrophils/100 WBC (Bld) 67.7 % Normal 43.0-75.[address] [facility] Comment on above: Performed By: #### L DH, BMP, LIVER, CRP #### [facility] [address] [place] [address] Dr. Darius Zepeda Platelet mean volume (Bld) [Entitic vol] 9.6 fL Normal 9.5-13.[address] [facility] Comment on above: Performed By: #### L DH, BMP, LIVER, CRP #### [facility] [address] [place] [address] [address] Darius Zepeda PLT 228 103/ul Normal 150-[address] [facility] Comment on above: Performed By: #### L DH, BMP, LIVER, CRP #### [facility] [address] [place] [address] [address] Darius Zepeda RBC 4.67 106/ul Normal 4.20-5.[address] [facility] Comment on above: Performed By: #### L DH, BMP, LIVER, CRP #### [facility] [address] [place] [address] [address] Darius Zepeda WBC 9.0 103/ul Normal 4.0-11.0 [facility] Comment on above: Performed By: #### L DH, BMP, LIVER, CRP #### [facility] [address] [place] [address] Dr. Darius Zepeda PROF 14(COMP METB)on 021 Albumin [Mass/Vol] 3.8 g/dL Normal 3.5-5.0 [facility] Comment on above: Performed By: #### L DH, BMP, LIVER, CRP #### [facility] [address] [place] [address] Dr. Darius Zepeda Albumin/Globulin [Mass ratio] 0.9 {ratio} Normal [facility] Comment on above: Performed By: #### L DH, BMP, LIVER, CRP #### [facility] [address] [place] [address] Dr. Darius Zepeda ALP [Catalytic activity/Vol] 94 U/L Normal 38-[address] [facility] Comment on above: Performed By: #### L DH, BMP, LIVER, CRP #### [facility] [address] [place] [address] Dr. Darius Zepeda ALT [Catalytic activity/Vol] 27 U/L Normal 9-[address] [facility] Comment on above: Performed By: #### L DH, BMP, LIVER, CRP #### [facility] [address] [place] [address] Dr. Darius Zepeda Anion gap [Moles/Vol] 13.3 mmol/L Normal [facility] Comment on above: Performed By: #### L DH, BMP, LIVER, CRP #### [facility] [address] [place] [address] Dr. Darius Zepeda AST [Catalytic activity/Vol] 16 U/L Normal 14-36 [facility] Comment on above: Performed By: #### L DH, BMP, LIVER, CRP #### [facility] [address] [place] [address] Dr. Darius Zepeda Bilirubin [Mass/Vol] 0.5 mg/dL Normal 0.2-1.[address] [facility] Comment on above: Performed By: #### L DH, BMP, LIVER, CRP #### [facility] [address] [place] [address] Dr. Darius Zepeda Calcium [Mass/Vol] 9.5 mg/dL Normal 8.4-10.[address] [facility] Comment on above: Performed By: #### L DH, BMP, LIVER, CRP #### [facility] [address] [place] [address] Dr. Darius Zepeda Chloride [Moles/Vol] 103 mmol/L Normal 98-[address] [facility] Comment on above: Performed By: #### L DH, BMP, LIVER, CRP #### [facility] [address] [place] [address] Dr. Darius Zepeda CO2 [Moles/Vol] 27.2 mmol/L Normal 22.0-30.[address] [facility] Comment on above: Performed By: #### L DH, BMP, LIVER, CRP #### [facility] [address] [place] [address] Dr. Darius Zepeda Creatinine [Mass/Vol] 0.98 mg/dL Normal 0.52-1.[address] [facility] Comment on above: Performed By: #### L DH, BMP, LIVER, CRP #### [facility] [address] [place] [address] Dr. Darius Zepeda EGFR-AF PORTUGUESE >60 Normal >=[address] [facility] Comment on above: Performed By: #### L DH, BMP, LIVER, CRP #### [facility] [address] [place] [address] [address] Darius Zepeda EGFR-NON AF [place]UGUESE 55 mL/min/1.73m2 Critically low >=60 [facility] Comment on above: Performed By: #### L DH, BMP, LIVER, CRP #### [facility] [address] [place] [address] [address] Darius Zepeda Globulin (S) [Mass/Vol] 4.2 g/dL Normal [facility] Comment on above: Performed By: #### L DH, BMP, LIVER, CRP #### [facility] [address] [place] [address] [address] Darius Zepeda Glucose [Mass/Vol] 109 mg/dL Critically high 74-106 [facility] Comment on above: Performed By: #### L DH, BMP, LIVER, CRP #### [facility] [address] [place] [address] [address] Darius Zepeda Potassium [Moles/Vol] 3.5 mmol/L Normal 3.4-5.0 [facility] Comment on above: Performed By: #### L DH, BMP, LIVER, CRP #### [facility] [address] [place] [address] [address] Darius Zepeda Protein [Mass/Vol] 8.0 g/dL Normal 6.1-8.2 [facility] Comment on above: Performed By: #### L DH, BMP, LIVER, CRP #### [facility] [address] [place] [address] [address] Darius Zepeda Sodium [Moles/Vol] 140 mmol/L Normal 137-145 [facility] Comment on above: Performed By: #### L DH, BMP, LIVER, CRP #### [facility] [address] [place] [address] [address] Darius Zepeda Urea nitrogen [Mass/Vol] 19.0 mg/dL Critically high 7.0-17.0 [facility] Comment on above: Performed By: #### L DH, BMP, LIVER, CRP #### [facility] [address] [place] [address] [address] Darius Zepeda Urea nitrogen/Creatinin e [Mass ratio] 19.4 mg/mg Normal [facility] Comment on above: Performed By: #### L DH, BMP, LIVER, CRP #### [facility] [address] [place] [address] [address] Darius Zepeda Vital Signs Date Time Vital Sign Value Performing Clinician Facility 09-27-2024 13:59-0400 Body height 162.6 cm Ray Day DPM Work Phone: [facility] 09-27-2024 13:59-0400 Body mass index (BMI) [Ratio] 31.41 kg/m2 Ray Day DPM Work Phone: [facility] 09-27-2024 13:59-0400 Body weight 83.01 kg Ray Day DPM Work Phone: [facility] 09-27-2024 13:59-0400 Respiratory rate 18 /min Ray Day DPM Work Phone: [facility] 08-10-2024 10:38-0500 Body height 162.6 cm Pacc 1 Work Phone: [facility] 08-10-2024 10:38-0500 Body mass index (BMI) [Ratio] 29.9 kg/m2 Pacc 1 Work Phone: [facility] 08-10-2024 10:38-0500 Body weight 79 kg Pacc 1 Work Phone: [facility] 08-10-2024 10:38-0500 Diastolic blood pressure 82 mm[Hg] Pacc 1 Work Phone: [facility] 08-10-2024 10:38-0500 Heart rate 76 /min Pacc 1 Work Phone: [facility] 08-10-2024 10:38-0500 Respiratory rate 16 /min Pacc 1 Work Phone: [facility] 08-10-2024 10:38-0500 SaO2% (BldA) [Mass fraction] 97 % Pacc 1 Work Phone: [facility] 08-10-2024 10:38-0500 Systolic blood pressure 136 mm[Hg] Pacc 1 Work Phone: [facility] 05-11-2024 12:37-0500 Body height 162.6 cm Pacc 1 Work Phone: [facility] 05-11-2024 12:37-0500 Body mass index (BMI) [Ratio] 29.9 kg/m2 Pacc 1 Work Phone: [facility] 05-11-2024 12:37-0500 Body temperature 98.1 [degF] Pacc 1 Work Phone: [facility] 05-11-2024 12:37-0500 Body weight 79 kg Pacc 1 Work Phone: [facility] 05-11-2024 12:37-0500 Diastolic blood pressure 90 mm[Hg] Pacc 1 Work Phone: [facility] 05-11-2024 12:37-0500 Heart rate 78 /min Pacc 1 Work Phone: [facility] 05-11-2024 12:37-0500 Respiratory rate 14 /min Pacc 1 Work Phone: [facility] 05-11-2024 12:37-0500 SaO2% (BldA) [Mass fraction] 98 % Pacc 1 Work Phone: [facility] 05-11-2024 12:37-0500 Systolic blood pressure 161 mm[Hg] Pacc 1 Work Phone: [facility] 04-17-2024 09:52-0500 Body height 162.6 cm Mary Mckeonoll SORTING MACHINE OPERATOR Work Phone: [facility] 04-17-2024 09:52-0500 Body mass index (BMI) [Ratio] 31.41 kg/m2 Mary Olivia SORTING MACHINE OPERATOR Work Phone: [facility] 04-17-2024 09:52-0500 Body weight 83.01 kg Mary Mckeonoll SORTING MACHINE OPERATOR Work Phone: [facility] 04-17-2024 09:52-0500 Diastolic blood pressure 82 mm[Hg] Mary Olivia SORTING MACHINE OPERATOR Work Phone: [facility] 04-17-2024 09:52-0500 Heart rate 82 /min Mary Olivia SORTING MACHINE OPERATOR Work Phone: [facility] 04-17-2024 09:52-0500 SaO2% (BldA) [Mass fraction] 98 % Mary Olivia SORTING MACHINE OPERATOR Work Phone: [facility] 04-17-2024 09:52-0500 Systolic blood pressure 136 mm[Hg] Mary Olivia SORTING MACHINE OPERATOR Work Phone: [facility] 03-27-2024 14:39-0400 Body height 162.6 cm Rositatyra Colinhholz SORTING MACHINE OPERATOR Work Phone: [facility] 03-27-2024 14:39-0400 Body mass index (BMI) [Ratio] 31.62 kg/m2 Rosita Aichholz SORTING MACHINE OPERATOR Work Phone: [facility] 03-27-2024 14:39-0400 Body temperature 98.49 [degF] Rosita Aichholz SORTING MACHINE OPERATOR Work Phone: [facility] 03-27-2024 14:39-0400 Body weight 83.55 kg Rosita Aichholz SORTING MACHINE OPERATOR Work Phone: [facility] 03-27-2024 14:39-0400 Diastolic blood pressure 100 mm[Hg] Rosita Aichholz SORTING MACHINE OPERATOR Work Phone: [facility] 03-27-2024 14:39-0400 Heart rate 77 /min Rosita Aichholz SORTING MACHINE OPERATOR Work Phone: [facility] 03-27-2024 14:39-0400 Respiratory rate 18 /min Rosita Aichholz SORTING MACHINE OPERATOR Work Phone: [facility] 03-27-2024 14:39-0400 SaO2% (BldA) [Mass fraction] 100 % Rosita Aichholz SORTING MACHINE OPERATOR Work Phone: [facility] 03-27-2024 14:39-0400 Systolic blood pressure 140 mm[Hg] Rosita Aichholz SORTING MACHINE OPERATOR Work Phone: [facility] 02-16-2022 13:09-0400 Blood Pressure Location Tello DELGADO [facility] [place] 02-16-2022 13:09-0400 Diastolic blood pressure 86 mm[Hg] Tello LARESL [facility] [place] 02-16-2022 13:09-0400 Heart rate 74 /min Tello LARESL [facility] [place] 02-16-2022 13:09-0400 Respiratory rate 16 /min Tello LARESL [facility] [place] 02-16-2022 13:09-0400 Systolic blood pressure 122 mm[Hg] Tello LARESL [facility] 01-25-2022 15:04-0400 Body height 164 cm Joey Cook MD Work Phone: [facility] 01-25-2022 15:04-0400 Body temperature 97.11 [degF] Joey Cook MD Work Phone: [facility] 01-25-2022 15:04-0400 Body weight 81.19 kg Joey Cook MD Work Phone: [facility] 01-25-2022 15:04-0400 Diastolic blood pressure 79 mm[Hg] Joey Cook MD Work Phone: [facility] 01-25-2022 15:04-0400 Heart rate 76 /min Joey Cook MD Work Phone: [facility] 01-25-2022 15:04-0400 Respiratory rate 16 /min Joey Cook MD Work Phone: [facility] 01-25-2022 15:04-0400 SaO2% (BldA) [Mass fraction] 98 % Joey Cook MD Work Phone: [facility] 01-25-2022 15:04-0400 Systolic blood pressure 152 mm[Hg] Joey Cook MD Work Phone: [facility] Encounters Encounter Date Encounter Type Care Provider Facility Start: 01-18-2025 End: 01-19-2025 Refill Rosita Aichholz SORTING MACHINE OPERATOR Work Phone: [facility] Comment on above: Primary hypertension Start: 01-05-2025 End: 01-14-2025 Refill Rosita Aichholz SORTING MACHINE OPERATOR Work Phone: [facility] Comment on above: Primary hypertension Start: 09-29-2024 End: 10-01-2024 Refill Rosita Aichholz SORTING MACHINE OPERATOR Work Phone: [facility] Comment on above: Primary hypertension (CMS/HCC) Start: 09-27-2024 End: 09-27-2024 Bamboo flowsheet Ray Day DPM Work Phone: [facility] Start: 09-27-2024 End: 09-27-2024 Bamboo flowsheet Ray Day DPM Work Phone: [facility] Start: 09-27-2024 End: 09-27-2024 Patient encounter procedure Ray Day DPM Work Phone: [facility] Comment on above: Pain due to onychomy cosis of toenails of both feet (Primary Dx); Venous insufficiency Start: 09-27-2024 End: 09-27-2024 ambulatory RAY DAY Not Available Start: 08-17-2024 End: 08-17-2024 ambulatory JUICE GILLETTE Facility:[facility] Start: 08-17-2024 End: 08-17-2024 Patient encounter procedure Juice Gillette OD Work Phone: Ophthalmology Comment on above: Examination followin g surgery (Primary Dx) Start: 08-15-2024 End: 08-15-2024 Telephone encounter Elton Avalos MD Work Phone: Ophthalmology Comment on above: Patient Update Start: 08-14-2024 End: 08-14-2024 ambulatory ELTON AVALOS Facility:[facility] Start: 08-10-2024 End: 08-10-2024 Patient encounter procedure Tello Bradford OD Work Phone: Ophthalmology Comment on above: Examination followin g surgery (Primary Dx); Combined forms of age-related cataract of left eye; Degenerative retinal drusen of both eyes Start: 08-10-2024 End: 08-10-2024 Admission to establishment [facility] Work Phone: Pre Anesthesia Start: 08-10-2024 End: 08-10-2024 ambulatory TELLO BRADFORD Facility:[facility] Start: 08-10-2024 End: 08-10-2024 Anesthesia consultation [facility] Work Phone: Pre Anesthesia Comment on above: Pre-op evaluation (P rimary Dx); Parkinson's disease, unspecified whether dyskinesia present, unspecified whether manifestations fluctuate (HCC); Other hyperlipidemia; Primary hypertension; Malignant neoplasm of colon, unspecified part of colon (HCC) Start: 08-10-2024 End: 08-10-2024 Preprocedural examination done [facility] 1 Work Phone: [facility] Work Phone: Start: 06-12-2024 End: 06-13-2024 Telephone encounter Elton Avalos MD Work Phone: Ophthalmology Start: 05-22-2024 End: 05-22-2024 ambulatory JUICE GILLETTE Facility:[facility] Start: 05-22-2024 End: 05-22-2024 Patient encounter procedure Juice Gillette OD Work Phone: Ophthalmology Comment on above: Examination followin g surgery (Primary Dx) Start: 05-12-2024 End: 05-13-2024 Refill Rosita Schaffer SORTING MACHINE OPERATOR Work Phone: [facility] Comment on above: Iron deficiency anem ia, unspecified Start: 05-11-2024 End: 05-11-2024 PAT Pac [facility] Work Phone: Pre Anesthesia Comment on above: Pre-op evaluation (P rimary Dx); Parkinson's disease, unspecified whether dyskinesia present, unspecified whether manifestations fluctuate (HCC); Primary hypertension; Bipolar affective disorder in remission (HCC); Malignant neoplasm of colon, unspecified part of colon (HCC); Other hyperlipidemia Combined forms of ag e-related cataract of both eyes (Primary Dx) Start: 05-11-2024 End: 05-11-2024 Preprocedural examination done [place] [address] Work Phone: [facility] Work Phone: Start: 04-17-2024 End: 04-17-2024 Bamboo flowsheet Mary Olivia SORTING MACHINE OPERATOR Work Phone: [facility] Start: 04-17-2024 End: 04-17-2024 Bamboo flowsheet Mary Corwin SORTING MACHINE OPERATOR Work Phone: [facility] Start: 04-17-2024 End: 04-17-2024 Office outpatient visit 25 minutes Mary Olivia SORTING MACHINE OPERATOR Work Phone: [facility] Comment on above: Parkinson's disease without dyskinesia, unspecified whether manifestations fluctuate (CMS/HCC) (Primary Dx); Pulsatile tinnitus; Paresthesias; Chronic fatigue; Anxiety and depression (CMS/HCC) Start: 04-17-2024 End: 04-17-2024 ambulatory MARY CORWIN Not Available Start: 04-10-2024 End: 04-10-2024 Telephone encounter Elton Avalos MD Work Phone: Ophthalmology Comment on above: Schedule Surgery Start: 04-09-2024 End: 04-09-2024 ambulatory ELTON AVALOS Facility:[facility] Start: 04-09-2024 End: 04-09-2024 Patient encounter procedure Elton Avalos MD Work Phone: Ophthalmology Comment on above: Degenerative retinal drusen of both eyes (Primary Dx); Combined forms of age-related cataract of both eyes Start: 04-04-2024 End: 04-04-2024 ambulatory LIBAN GREER Facility:[facility] Start: 04-04-2024 End: 04-04-2024 Patient encounter procedure Liban Greer MD Work Phone: Ophthalmology Comment on above: Degenerative retinal drusen of both eyes (Primary Dx) Start: 03-27-2024 End: 03-27-2024 Office outpatient visit 25 minutes Rosita Schaffer SORTING MACHINE OPERATOR Work Phone: [facility] Comment on above: Primary hypertension (CMS/HCC) (Primary Dx); Needs flu shot; Vitamin D deficiency; Iron deficiency anemia, unspecified iron deficiency anemia type; Other fatigue; Tremor; Thyroid nodule (CMS/HCC); Parkinson's disease without dyskinesia, unspecified whether manifestations fluctuate (CMS/HCC) Start: 03-27-2024 End: 03-27-2024 ambulatory ROSITA SCHAFFER Not Available Start: 03-27-2024 End: 03-27-2024 Bamboo flowsheet Rosita Schaffer SORTING MACHINE OPERATOR Work Phone: [facility] Start: 03-27-2024 End: 03-27-2024 Bamboo flowsheet Rosita Schaffer SORTING MACHINE OPERATOR Work Phone: [facility] Start: 03-31-2022 End: 04-01-2022 ambulatory Tello DELGADO Facility:[facility] Start: 03-31-2022 End: 03-31-2022 Patient encounter procedure Tello DELGADO General Surgery Danny/Kimberlee Juanjose Start: 03-10-2022 Encounter for preprocedural laboratory examination DR TELLO DELGADO [facility] Start: 03-10-2022 End: 03-11-[address] TELLO DELGADO Facility:[facility] Start: 03-06-2022 End: 03-07-[address] TELLO DELGADO Facility:[facility] Start: 03-06-2022 End: 03-07-2022 Encounter for preprocedural laboratory examination DR TELLO DELGADO Facility:[facility] Start: 02-16-2022 End: 02-17-2022 ambulatory Tello DELGADO Facility:[facility] Start: 02-16-2022 End: 02-16-2022 Patient encounter procedure Tello DELGADO General Surgery Nill/Kimberlee Sow Start: 02-02-2022 End: 02-02-2022 ambulatory STEPHANIE SCHAFFER Facility:[facility] Start: 01-25-2022 End: 01-25-2022 ambulatory Joey Cook MD Work Phone: Hematology/Oncology Comment on above: 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); Malignant neoplasm of colon, unspecified part of colon (HCC) Start: 01-25-2022 End: 01-25-2022 Patient encounter procedure Joey Cook MD Work Phone: [facility] Start: 01-22-2022 Chart abstracting Joey lopez MD Work Phone: Hematology/Oncology Start: 01-13-2022 ambulatory Tello DELGADO Facility :[facility] Start: 01-08-2022 End: 01-09-[address] BIRGIT GERONIMO Facility:[facility] Start: 12-16-2021 End: 12-17-[address] BIRGIT GERONIMO Facility:[facility] Start: 12-11-2021 End: 12-12-2021 ambulatory STEPHANIE SCHAFFER Facility:[facility] Start: 12-04-2021 End: 12-05-2021 ambulatory STEPHANIE SCHAFFER Facility:[facility] Start: 12-02-2021 End: 12-03-[address] BIRGIT GERONIMO Facility:[facility] Start: 11-11-2021 End: 11-12-2021 ambulatory STEPHANIE SCHAFFER Facility:[facility] Start: 11-04-2021 End: 11-05-[address] BIRGIT GERONIMO Facility:[facility] Start: 06-01-2021 End: 06-02-2021 ambulatory STEPHANIE SCHAFFER Facility:[facility] Start: 05-25-2021 End: 05-26-2021 ambulatory PILLAR MAN ROSITA HERNESTO Facility:[facility] Start: 04-14-2021 End: 04-15-2021 ambulatory CIELO CERVANTES Facility:[facility] Procedures Date Procedure Procedure Detail Performing Clinician Start: 05-11-2024 IOL BIOMETRY W/ IOL CALC OU (BOTH EYES) Elton Avalos MD Work Phone: Start: 04-09-2024 End: 04-09-2024 Computerized ophthalmic imaging retina Elton Avalos MD Work Phone: Start: 04-04-2024 Computerized ophthalmic imaging retina Liban Greer MD Work Phone: Start: 03-10-2022 Colonoscopy Tello NILL Start: 03-10-2022 Esophagogastroduodenoscopy Tello NILL Start: 03-10-2007 Colonoscopy Tello NILL Biopsy of thyroid Tello NI LL Colonoscopy Tello NILL Lumpectomy of left breast Mi hill NILL Partial resection of colon M ichflorencia NILL Plan of Treatment Date Care Activity Detail Author Start: 04-19-2025 End: 09-26-2025 OCT MACULA CIRRUS OU (BOTH EYES) OCT MACULA CIRRUS OU (BOTH EYES) [facility] Imaging Routine Degenerative retinal drusen of both eyes Expected: 04/19/2025, Expires: 09/26/2025 [facility] Work Phone: Comment on above: Expected: 04/19/2025, Expires: Start: 02-19-2025 End: 02-19-2025 Patient encounter procedure 02/19/2025 11:00 AM EDT Office Visit [facility] [address] [place] [id number] Rosita Schaffer NP [address] [place] [phone] [facility] Start: 02-07-2025 End: 02-07-2025 Patient encounter procedure 02/07/2025 2:10 PM EDT Procedure Visit [facility] [address] [facility] [address] [place] [address] Ray Day, DPM [address] [address] [facility] Start: 02-04-2025 Influenza vaccination Influenza Vaccine (#1) [facility] Start: 01-25-2025 DIABETES SCREEN [facility] Start: 01-25-2025 Diabetes Screening Diabetes Screening [facility] Start: 01-17-2025 End: 01-17-2025 Patient encounter procedure 01/17/2025 2:20 PM EDT Procedure Visit [facility] [address] [facility] [address] [place] [address] Ray Day DPM [address] [address] [facility] Start: 12-06-2024 End: 12-06-2024 Patient encounter procedure 12/06/2024 1:50 PM EDT Procedure Visit [facility] [address] [place] [address] Ray Day DPM [address] [address] [facility] Start: 09-27-2024 End: 09-27-2024 Patient encounter procedure 09/27/2024 2:00 PM EDT Procedure Visit [facility] [address] [place] [address] Ray Day DPM [address] [address] Pain due to onychomycosis of toenails of both feet (Primary Dx); Venous insufficiency [facility] Comment on above: Pain due to onychomycosis of toenails of both feet (Primary Dx); Venous insufficiency Start: 09-24-2024 End: 09-24-2024 Patient encounter procedure 09/24/2024 1:45 PM EDT Office Visit [facility] [address] [place] [address] Juice Gillette, OD [address] [facility] [place] [address] 1 MONTH Ophthalmology Comment on above: 1 MONTH Start: 08-22-2024 End: 08-22-2024 Patient encounter procedure 08/22/2024 2:00 PM EDT Office Visit [facility] [address] [place] [address] Juice Gillette, OD [address] [facility] [address] 1 WEEK Ophthalmology Comment on above: 1 WEEK Start: 08-17-2024 End: 08-17-2024 Patient encounter procedure 08/17/2024 12:45 PM EDT Office Visit [facility] [address] [place] [address] Juice Gillette, OD [address] [facility] [place] [address] 1 DAY POST OP Cataract: Left eye (OS) Ophthalmology Comment on above: 1 DAY POST OP Cataract: Left eye (OS) Start: 08-15-2024 End: 08-15-2024 Patient encounter procedure Ophthalmolog y Comment on above: 1 DAY 1 DAY POST OP Catara ct: Left eye (OS) Start: 08-14-2024 End: 08-14-2024 Admission to same day surgery center Ambulatory Surgery Comment on above: PHACOEMULSIFICATION CATARACT IMPLANT INT RAOCULAR LENS W/O ENDOSCOPIC CYCLOPHOTOCOAGULATION Start: 08-14-2024 End: 08-14-2024 Oph bmtry prtl coher intrfrmtry io lens pwr dari [facility] Start: 08-14-2024 Subsequent hospital visit by physician Ambulatory Surgery Comment on above: Combined forms of age-related cataract o f both eyes [H25.813] Start: 08-14-2024 End: 08-14-2024 Xcapsl ctrc rmvl insj io lens prosth w/o ecp [facility] Start: 08-08-2024 End: 08-08-2024 Patient encounter procedure 08/08/2024 10:30 AM EST Office Visit [facility] Ophthalmology [address] [facility] [place] [address] Liban Greer MD [address] [place] [address] *4 M, DFE/OCT Ophthalmology Comment on above: *4 M, DFE/OCT Start: 08-06-2024 End: 08-06-2024 Anesthesia consultation 08/06/2024 1:00 PM EST PAT Pre Anesthesia [address] [facility] [place] [address] 1, Pacc [place] [address] [facility] [place] [address] Cataract: Left eye (OS) Pre Anesthesia Comment on above: Cataract: Left eye (OS) Start: 07-24-2024 End: 07-24-2024 Patient encounter procedure 07/24/2024 1:15 PM EST Office Visit [facility] Ophthalmology [address] [facility] [place] [address] Juice Gillette, OD [address] [facility] [place] [address] 1 MONTH Ophthalmology Comment on above: 1 MONTH Start: 06-26-2024 End: 06-26-2024 Patient encounter procedure Ophthalmolog y Comment on above: 1 WEEK 1 WEEK // 1 MONTH Start: 06-20-2024 End: 06-20-2024 Patient encounter procedure 06/20/2024 11:00 AM EST Office Visit [facility] Ophthalmology [address] [facility] [place] [address] Juice Gillette, OD [address] [facility] [place] [address] 1 DAY Ophthalmology Comment on above: 1 DAY Start: 06-19-2024 End: 06-19-2024 Admission to same day surgery center 06/19/2024 9:30 AM EST - 06/19/2024 10:02 AM EST Surgery Ambulatory Surgery [address] [place] [address] Elton Avalos MD [address] [place] [address] PHACOEMULSIFICATION CATARACT IMPLANT INTRAOCULAR LENS W/O ENDOSCOPIC CYCLOPHOTOCOAGULATION Ambulatory Surgery Comment on above: PHACOEMULSIFICATION CATARACT IMPLANT INT RAOCULAR LENS W/O ENDOSCOPIC CYCLOPHOTOCOAGULATION Start: 06-19-2024 End: 06-19-2024 Oph bmtry prtl coher intrfrmtry io lens pwr dari OPHTHALMIC BIOMETRY BY PARTIAL COHERENCE INTERFEROMETRY W/INTRAOCULAR LENS POWER CALCULATION Combined forms of age-related cataract of both eyes 06/19/2024 9:30 AM EST [facility] [place] Start: 06-19-2024 Subsequent hospital visit by physician 06/19/2024 9:30 AM EST Hospital Encounter Ambulatory Surgery [address] [place] [address] Elton Avalos MD [address] [place] [address] Combined forms of age-related cataract of both eyes [H25.813] Ambulatory Surgery Comment on above: Combined forms of age-related cataract o f both eyes [H25.813] Start: 06-19-2024 End: 06-19-2024 Xcapsl ctrc rmvl insj io lens prosth w/o ecp PHACOEMULSIFICATION CATARACT IMPLANT INTRAOCULAR LENS W/O ENDOSCOPIC CYCLOPHOTOCOAGULATION Combined forms of age-related cataract of both eyes 06/19/2024 9:30 AM EST [facility] [place] Start: 06-12-2024 End: 06-12-2024 Patient encounter procedure 06/12/2024 11:20 AM EST Office Visit [facility] [address] [place] [phone] Mary Olivia, INÉS [address] [place] [phone] [address] Start: 06-06-2024 Advance Directive Discussion Advance Directive Discussion [facility] Start: 05-28-2024 End: 05-28-2024 Patient encounter procedure 05/28/2024 1:15 PM EST Office Visit [facility] Ophthalmology [address] [place] [address] Adolph Lombardi, OD [address] [place] [address] 1 WEEK Ophthalmology Comment on above: 1 WEEK Start: 05-22-2024 End: 05-22-2024 Patient encounter procedure 05/22/2024 1:45 PM EST Office Visit [facility] [address] [facility] [place] [address] Juice Gillette, OD [address] [place] [address] 1 DAY Ophthalmology Comment on above: 1 DAY Start: 05-21-2024 End: 05-21-2024 Admission to same day surgery center 05/21/2024 12:30 PM EST - 05/21/2024 1:02 PM EST Surgery Ambulatory Surgery [address] [place] [address] Elton Avalos MD [address] [place] [address] PHACOEMULSIFICATION CATARACT IMPLANT INTRAOCULAR LENS W/O ENDOSCOPIC CYCLOPHOTOCOAGULATION Ambulatory Surgery Comment on above: PHACOEMULSIFICATION CATARACT IMPLANT INT RAOCULAR LENS W/O ENDOSCOPIC CYCLOPHOTOCOAGULATION Start: 05-21-2024 End: 05-21-2024 Oph bmtry prtl coher intrfrmtry io lens pwr dari OPHTHALMIC BIOMETRY BY PARTIAL COHERENCE INTERFEROMETRY W/INTRAOCULAR LENS POWER CALCULATION Combined forms of age-related cataract of both eyes 05/21/2024 12:30 PM EST [facility] [place] Start: 05-21-2024 Subsequent hospital visit by physician 05/21/2024 12:30 PM EST Hospital Encounter Ambulatory Surgery [address] [place] [address] Elton Avalos MD [address] [place] [address] Combined forms of age-related cataract of both eyes [H25.813] Ambulatory Surgery Comment on above: Combined forms of age-related cataract o f both eyes [H25.813] Start: 05-21-2024 End: 05-21-2024 Xcapsl ctrc rmvl insj io lens prosth w/o ecp PHACOEMULSIFICATION CATARACT IMPLANT INTRAOCULAR LENS W/O ENDOSCOPIC CYCLOPHOTOCOAGULATION Combined forms of age-related cataract of both eyes 05/21/2024 12:30 PM EST [facility] Start: 05-08-2024 End: 05-08-2024 Patient encounter procedure 05/08/2024 1:00 PM EST Office Visit [facility] [address] [facility] [address] [place] [address] Rosita Schaffer NP [address] [place] [address] [facility] Start: 04-17-2024 End: 04-17-2025 EMG 2 Extremities EMG 2 Extremities Neurology Routine Paresthesias Expected: 04/17/2024 (Approximate), Expires: 04/17/2025 [facility] Comment on above: Expected: 04/17/2024 (Approximate), Expi res: 04/17/2025 Start: 04-17-2024 End: 04-17-2025 MRA Head vessels WO and W contrast IV MR angiogram head w and wo IV contrast Imaging High Priority Pulsatile tinnitus Expected: 04/17/2024 (Approximate), Expires: 04/17/2025 [facility] Work Phone: Comment on above: Expected: 04/17/2024 (Approximate), Expi res: 04/17/2025 Start: 04-17-2024 End: 04-17-2025 MRA Neck vessels WO and W contrast IV MR angiogram neck w and wo IV contrast Imaging High Priority Pulsatile tinnitus Expected: 04/17/2024 (Approximate), Expires: 04/17/2025 [facility] Comment on above: Expected: 04/17/2024 (Approximate), Expi res: 04/17/2025 Start: 04-10-2024 End: 04-10-2024 Patient encounter procedure 04/10/2024 10:40 AM EST Office Visit [facility] [address] [place] [address] Mary Olivia, INÉS [address] [place] [address] [facility] [address] [facility] Start: 04-09-2024 End: 04-09-2024 Patient encounter procedure 04/09/2024 1:30 PM EST Office Visit [facility] Ophthalmology [address] [place] [address] Elton Avalos MD [address] [facility] [place] [address] NEW-Cataract Evaluation Ophthalmology Comment on above: NEW-Cataract Evaluation Start: 03-27-2024 End: 03-27-2024 Patient encounter procedure 03/27/2024 2:20 PM EDT Office Visit [facility] [address] [place] [address] Rosita Schaffer NP [address] [place] [address] Arrived [facility] Comment on above: Arrived Start: 03-27-2024 End: 03-27-2025 25-hydroxyvitamin D3 [Mass/volume] in Serum or Plasma Vitamin D 25 hydroxy Lab Routine Vitamin D deficiency Expected: 03/27/2024 (Approximate), Expires: 03/27/2025 [facility] Comment on above: Expected: 03/27/2024 (Approximate), Expi res: 03/27/2025 Start: 03-27-2024 End: 03-27-2025 CBC W Auto Differential panel - Blood CBC and differential Lab Routine Iron deficiency anemia, unspecified iron deficiency anemia type Expected: 03/27/2024 (Approximate), Expires: 03/27/2025 [facility] Work Phone: Comment on above: Expected: 03/27/2024 (Approximate), Expi res: 03/27/2025 Start: 03-27-2024 End: 03-27-2025 Cobalamin (Vitamin B12) [Mass/volume] in Serum or Plasma Vitamin B12 Lab Routine Iron deficiency anemia, unspecified iron deficiency anemia type Other fatigue Expected: 03/27/2024 (Approximate), Expires: 03/27/2025 [facility] Comment on above: Expected: 03/27/2024 (Approximate), Expi res: 03/27/2025 Start: 03-27-2024 End: 03-27-2025 Comprehensive metabolic 2000 panel - Serum or Plasma Comprehensive metabolic panel Lab Routine Vitamin D deficiency Expected: 03/27/2024 (Approximate), Expires: 03/27/2025 [facility] Comment on above: Expected: 03/27/2024 (Approximate), Expi res: 03/27/2025 Start: 03-27-2024 End: 03-27-2025 Iron + transferrin + TIBC Iron + transferrin + TIBC Lab Routine Iron deficiency anemia, unspecified iron deficiency anemia type Expected: 03/27/2024 (Approximate), Expires: 03/27/2025 [facility] Comment on above: Expected: 03/27/2024 (Approximate), Expi res: 03/27/2025 Start: 03-27-2024 End: 03-27-2025 Thyrotropin [Units/volume] in Serum or Plasma TSH Lab Routine Tremor Thyroid nodule (CMS/HCC) Expected: 03/27/2024 (Approximate), Expires: 03/27/2025 [facility] Comment on above: Expected: 03/27/2024 (Approximate), Expi res: 03/27/2025 Start: 03-27-2024 End: 03-27-2025 Thyroxine (T4) free [Mass/volume] in Serum or Plasma T4, free Lab Routine Tremor Thyroid nodule (CMS/HCC) Expected: 03/27/2024 (Approximate), Expires: 03/27/2025 [facility] Comment on above: Expected: 03/27/2024 (Approximate), Expi res: 03/27/2025 Start: 03-27-2024 End: 03-27-2025 Urinalysis complete panel - Urine Urinalysis with reflex microscopic (clean catch) Lab Routine Other fatigue Expected: 03/27/2024 (Approximate), Expires: 03/27/2025 [facility] Comment on above: Expected: 03/27/2024 (Approximate), Expi res: 03/27/2025 Start: 02-05-2024 Covid-19 Vaccine () Covid-19 Vaccine ( season) [facility] Start: 02-05-2024 Influenza vaccination Influenza Vaccine (#1) [facility] Start: 06-06-2023 Advance Directive Discussion Advance Directive Discussion [facility] Start: 03-01-2023 Pneumococcal Vaccine: 50+ (2 of 2 - PCV) Pneumococcal Vaccine: 50+ (2 of 2 - PCV) [facility] Start: 03-01-2023 Pneumococcal Vaccine: 65+ (2 of 2 - PCV) Pneumococcal Vaccine: 65+ (2 of 2 - PCV) [facility] Start: 03-01-2023 Pneumococcal Vaccine: 65+ Years (2 of 2 - PCV) Pneumococcal Vaccine: 65+ Years (2 of 2 - PCV) [facility] Start: 2022 RSV Vaccine (1 - 1-dose 75+ series) RSV Vaccine (1 - 1-dose 75+ series) [facility] Start: 02-04-2022 Influenza vaccination INFLUENZA (#1) [facility] Start: 06-06-2021 ADVANCE DIRECTIVE DISCUSSION ADVANCE DIRECTIVE DISCUSSION [facility] Start: 2012 BONE DENSITY BONE DENSITY [facility] Start: 2012 PNEUMOCOCCAL: 65+ (1 - PCV) PNEUMOCOCCAL: 65+ (1 - PCV) [facility] Start: 2012 Screening for osteoporosis Bone Density Screening [facility] Start: 1997 SHINGRIX VACCINE (1 of 2) SHINGRIX VACCINE (1 of 2) [facility] Start: 1992 COLOGUARD (FIT-DNA) COLOGUARD (FIT-DNA) [facility] Start: 1992 Colonoscopy COLONOSCOPY [facility] Start: 1992 COLORECTAL CANCER SCREENING COLORECTAL CANCER SCREENING [facility] Start: [address] COLONOGRAPHY [facility] Start: 1992 DIABETES SCREEN DIABETES SCREEN [facility] Start: 1992 FECAL OCCULT BLOOD FECAL OCCULT BLOOD [facility] Start: 1992 LIPID SCREEN LIPID SCREEN [facility] Start: 1992 SIGMOIDOSCOPY SIGMOIDOSCOPY [facility] Start: 1987 Mammography MAMMOGRAM [facility] Start: 1966 Urine microalbumin profile [facility] Start: 1965 Annual PCP Team Chronic Disease Visit Annual PCP Team Chronic Disease Visit [facility] Start: 1965 Anxiety Screening Anxiety Screening [facility] Start: 1965 BP Controlled (<130/80) BP Controlled (<130/80) [facility] Start: 1965 Depression Screening Depression Screening [facility] Start: 1965 HEPATITIS C SCREENING HEPATITIS C SCREENING [facility] Start: 1965 Hepatitis C screening Hepatitis C Screening [facility] Start: 1959 Adult depression screening assessment DEPRESSION SCREENING [facility] Start: 1947 COVID-19 VACCINE (#1) COVID-19 VACCINE (#1) [facility] Immunizations Immunization Date Immunization Notes Care Provider Fa [facility] 03-27-2024 Seasonal trivalent influenza vaccine, adjuvanted, preservative free Rosita Aichholz SORTING MACHINE OPERATOR Work Phone: [facility] 03-27-2024 influenza virus vacc ine, unspecified formulation Rosita Aichholz SORTING MACHINE OPERATOR Work Phone: [facility] 06-16-2023 influenza, injectabl e, quadrivalent, preservative free Rosita Aichholz SORTING MACHINE OPERATOR Work Phone: [facility] 06-16-2023 influenza virus vacc ine, unspecified formulation Rosita Aichholz SORTING MACHINE OPERATOR Work Phone: [facility] 03-15-2023 SARS-COV-2 (COVID-19 ) vaccine, mRNA, spike protein, LNP, PF, 50 mcg/0.5 mL Rosita Aichholz SORTING MACHINE OPERATOR Work Phone: [facility] 04-13-2022 Influenza, Seasonal, Quadrivalent, Adjuvanted Rosita Aichholz SORTING MACHINE OPERATOR Work Phone: [facility] 03-01-2022 pneumococcal polysaccharide vaccine, 23 valent Rosita Schaffer SORTING MACHINE OPERATOR Work Phone: [facility] 01-23-2022 COVID-19 vaccine, fu ll dose (MODERNA) Joey Cook MD Work Phone: [facility] 04-14-2021 COVID-19 vaccine, fu ll dose (MODERNA) Joey Cook MD Work Phone: [facility] 08-27-2020 COVID-19 vaccine, fu ll dose (MODERNA) Joey Cook MD Work Phone: [facility] 07-21-2020 COVID-19 vaccine, fu ll dose (MODERNA) Joey Cook MD Work Phone: [facility] 02-28-2020 Influenza, High-dose Seasonal, Quadrivalent, Preservative Free Rosita Garciaz SORTING MACHINE OPERATOR Work Phone: [facility] 07-06-2017 influenza, injectabl e, quadrivalent, contains preservative Rosita Aicadamholz SORTING MACHINE OPERATOR Work Phone: [facility] 05-01-2014 influenza, seasonal, injectable Rosita Deliaholz SORTING MACHINE OPERATOR Work Phone: [facility] 04-20-2010 influenza virus vacc ine, whole virus Rosita Deliaholz SORTING MACHINE OPERATOR Work Phone: [facility] Payers Date Payer Category Payer Medicare (Managed Care) [id number]. [id number] 2022 Private Health Insurance [id number] 2022 Medicaid [id number] 1993 Medicare [id number] 1959 Medicaid [id number] 1959 Medicare [id number] 1959 Self-pay [id number] 1947 Unknown [id number] 2.16.84 [id number] 1947 Unknown [id number] 2.16.84 0.1.192955.3.579.2.593 1947 Unknown [id number] 2.16.84 0.1.434761.3.579.2.593 1947 Unknown [id number] 2.16.84 0.1.250276.3.579.2.593 1947 Unknown [id number] 2.16.84 0.1.244966.3.579.2.593 1947 Unknown [id number] 2.16.84 0.1.977123.3.579.2.593 1947 Unknown [id number] 2.16.84 0.1.295390.3.579.2.593 1947 Unknown [id number] 2.16.84 0.1.334275.3.579.2.593 1947 Unknown [id number] 2.16.84 0.1.989739.3.579.2.593 1947 Unknown [id number] 2.16.84 0.1.158887.3.579.2.593 1947 Unknown [id number] 2.16.84 0.1.794611.3.579.2.593 1947 Unknown [id number] 2.16.84 0.1.458882.3.579.2.593 1947 Unknown [id number] 2.16.8 40.1.456297.3.579.2.727 1947 Unknown [id number] 2.16.8 40.1.161334.3.579.2.727 1947 Unknown [id number] 2.16.8 40.1.043957.3.579.2.727 1947 Unknown [id number] 2.16.8 40.1.429358.3.579.2.727 1947 Unknown [id number] 2.16.84 0.1.960861.3.579.2.1259 1947 Unknown [id number] 2.16.84 0.1.481907.3.579.2.1259 1947 Unknown [id number] 2.16.84 0.1.545013.3.579.2.1259 Unknown [id number] 2.16.84 0.1.310148.3.579.2.593 Social History Date Type Detail Facility Start: 10-16-2013 End: 07-26-2023 Tobacco smoking status UTIS Never smoked tobacco [facility] Start: 10-16-2013 End: 01-25-2022 Tobacco use and exposure Smokeless tobacco non-user [facility] Start: 01-22-2022 End: 08-17-2024 Alcohol intake Current non-drinker of alcohol (finding) [facility] Start: 1945 Sex Assigned At Not on file [facility] History of tobacco use Passive smoker [facility] Start: 01-15-2022 End: 01-25-2022 Exposure to SARS-CoV-2 (event) Not sure [facility] Tobacco smoking status Never [facility] Start: 08-11-2023 End: 09-27-2024 Sex Assigned At Female [facility] Start: 03-08-2024 End: 09-27-2024 Alcoholic beverage intake Lifetime non-drinker (finding) [facility] Start: 08-11-2023 End: 09-27-2024 History of Social function [facility] Start: 08-11-2023 Alcohol Comment caffeine intak e: 2-3 cups per day [facility] Medical Equipment Procedure Code Equipment Code Equipment Origin al Text Equipment Identifier Dates [id number] Lorraine on [facility] - [id number] Start: 05-21-2024 [id number] [place] on [facility] - [id number] Start: 08-14-2024 Functional Status Date Assessment Result Facility 02-16-2022 Functional Status N/A General [address] [facility] 10-16-2013 Are you deaf, or do you have serious difficulty hearing No 10/16/2013 11:48 AM EDSyeda Loya LPN [facility] 10-16-2013 Are you blind, or do you have serious difficulty seeing, even when wearing glasses No 10/16/2013 11:48 AM EDSyeda Loya LPN [facility] 10-16-2013 Do you have serious difficulty walking or climbing stairs No 10/16/2013 11:48 AM EDSyeda Loya LPN [facility] 10-16-2013 Do you have difficul ty dressing or bathing No 10/16/2013 11:48 AM Syeda Phelps LPN [facility] 10-16-2013 Because of a physica l, mental, or emotional condition, do you have difficulty doing errands alone such as visiting a physician's office or shopping No 10/16/2013 11:48 AM EDSyeda Loya LPN [facility] Mental Status Date Assessment Result Facility 10-16-2013 Because of a physica l, mental, or emotional condition, do you have serious difficulty concentrating, remembering, or making decisions No 10/16/2013 11:48 AM Syeda Phelps LPN [facility] Clinical Notes 01-25-2022 to 01-14-2025 Telephone Encounter - Elen Muñoz - 01/14/2025 8:10 AM EDTTelephone Encounter - Elen Muñoz - 01/14/2025 8:10 AM DIONISIOTRay Day DPM - 09/27/2024 2:00 PM EDTPatient Instructions Note Date & Type Note Facility 01-14-2025 Telephone encounter Note Patient would also like Postassium 50 mg as well [facility] 01-14-2025 Miscellaneous Notes Patient would also like Postassium 50 mg as well documented in this encounter [facility] 09-27-2024 History of Present illness Narrative Patient: Riana Quiles : 1945 PCP: Renato Friedman MD SUBJECTIVE This is a 79 y.o. female that presents today with a CC of elongated, thick nails. Pt states nails have been elongated and thick for many years and cause pain with ambulation in shoegear. Pt has tried previous treatment with minimal relief. Pt presents today for nail care and treatment. Pt also has history of venous stasis to b/l lower extremities Patient has recent diagnosis of Parkinson's disease Allergies: No Known Allergies Past Medical History: Past Medical History: Diagnosis Date Abnormal magnetic resonance imaging of lumbar spine Abnormal PET scan of colon Abnormal serum protein electrophoresis Abnormal thyroid biopsy Abnormality of right breast on screening mammogram Acute pain of left knee Anemia At moderate risk for fall Back pain Colon cancer (CMS/HCC) COPD (chronic obstructive pulmonary disease) (CMS/HCC) DDD (degenerative disc disease), lumbar Edema of both ankles Elevated serum glucose Fatigue, unspecified type Gastroesophageal reflux disease, unspecified whether esophagitis present History of colon cancer Hypernatremia Hypertension, essential (CMS/HCC) 09/22/20-did not take medications today. Lipoma of upper extremity, unspecified laterality Lower extremity weakness Neoplasm of uncertain behavior of colon Neoplasm of uncertain behavior of other specified sites Primary hypertension (CMS/HCC) 05/12/2023 Refused Streptococcus pneumoniae vaccination Right hip pain Seborrheic dermatitis Spondylolisthesis of lumbar region Thyroid nodule (CMS/HCC) Medications: Current Outpatient Medications: carbidopa-levodopa (Sinemet) 25-100 MG tablet, TAKE 1 TABLET BY MOUTH THREE TIMES A DAY (AT 7:00 AM, 11:00 AM, AND 3:00 PM), Disp: 270 tablet, Rfl: 1 carvedilol (Coreg) 12.5 MG tablet, Take 1 tablet (12.5 mg) by mouth in the morning and 1 tablet (12.5 mg) before bedtime., Disp: 180 tablet, Rfl: 1 cholecalciferol (Vitamin D-3) 25 MCG (1000 UT) capsule, Take 1,000 Units by mouth Daily, Disp: , Rfl: ferrous sulfate 325 (65 Fe) MG tablet, Take 1 tablet (325 mg) by mouth in the morning and 1 tablet (325 mg) in the evening. Take with meals., Disp: 180 tablet, Rfl: 0 hydroCHLOROthiazide (HYDRODiuril) 12.5 MG tablet, Take 1 tablet (12.5 mg) by mouth Daily, Disp: 90 tablet, Rfl: 1 losartan (Cozaar) 50 MG tablet, Take 1 tablet (50 mg) by mouth Daily, Disp: 90 tablet, Rfl: 1 Social History: Social History Socioeconomic History Marital status: Spouse name: Not on file Number of children: Not on file Years of education: Not on file Highest education level: Not on file Occupational History Not on file Tobacco Use Smoking status: Never Smokeless tobacco: Not on file Substance and Sexual Activity Alcohol use: Never Comment: caffeine intake: 2-3 cups per day Drug use: Never Sexual activity: Not on file Other Topics Concern Not on file Social History Narrative Not on file Social Drivers of Health Financial Resource Strain: Not on file Food Insecurity: No Food Insecurity (03/02/2023) Received from [facility] Hunger Screening Within the past 12 months we worried whether our food would run out before we got money to buy more.: Never True Within the past 12 months the food we bought just didn't last and we didn't have money to get more.: Never True Transportation Needs: Not on file Physical Activity: Not on file Stress: Not on file Social Connections: Not on file Intimate Partner Violence: Not on file Housing Stability: Not on file ROS: General: denies fever, chills, fatigue, malaise Cardio: Denies palpitations, irregular rhythm , chest pain or shortness of breath OBJECTIVE LE EXAM: DERM: Elongated thick yellow crumbly nails digits 1 through 10. Positive hair growth b/l feet. Plus one pitting edema to bilateral ankles VASC: Positive palpable pedal pulses bilaterally NEURO: Gross sensation intact to bilateral feet ORTHO: Positive pain on palpation to toenails of the left 1,2,3,4,5 toes and right 1,2,3,4,5 toes ASSESSMENT 1. Pain due to onychomycosis of toenails of both feet 2. Venous insufficiency PLAN Discussed proper foot care with patient today. Debride nails in length and thickness digits 1 through 10 Visit spent with patient education on condition and treatment of condition. Pt to continue with elevation of feet while resting or NWB. Ray Day DPM documented in this encounter [facility] 08-17-2024 Note HNO ID: [id number] Author: JUICE GILLETTE OD Service: ? Author Type: WINDOWS INFRASTRUCTURE ENGINEER Type: Progress Notes Filed: 08/17/2024 13:06 Note Text: (Z09) Examination following surgery (primary encounter diagnosis) Comment: S/P PCIOL X 1 day 08/14/2024 Aim Otis Normal PO course with improved vision Plan: Start PF four times a day for one week then reduce 1 drop per week. PO sheet given. PO precautions given Shield HS for 1 week RTC 1 week PO The nature of the patient's eye disease, its relationship to systemic health, its genetic components, and its prognosis have been explained to the patient/family. The treatment options/risks/benefits have been discussed. Questions answered. I have interviewed and examined Riana Quiles. I have confirmed and edited as necessary the chief complaint, history of present illness, past medical history, medications, family history, social history, review of systems, and exam findings as obtained by others. I agree with the assessment and plan as stated above,and have discussed them in detail with the patient. Juice Gillette, OD August 17, 2024 12:42 PM [facility] 08-17-2024 History of Present illness Narrative (Z09) Examination following surgery (primary encounter diagnosis) Comment: S/P PCIOL X 1 day 08/14/2024 Aim Otis Normal PO course with improved vision Plan: Start PF four times a day for one week then reduce 1 drop per week. PO sheet given. PO precautions given Shield HS for 1 week RTC 1 week PO The nature of the patient's eye disease, its relationship to systemic health, its genetic components, and its prognosis have been explained to the patient/family. The treatment options/risks/benefits have been discussed. Questions answered. I have interviewed and examined Riana Quiles. I have confirmed and edited as necessary the chief complaint, history of present illness, past medical history, medications, family history, social history, review of systems, and exam findings as obtained by others. I agree with the assessment and plan as stated above,and have discussed them in detail with the patient. Juice Gillette, OD August 17, 2024 12:42 PM documented in this encounter [facility] 08-15-2024 Telephone encounter Note Patient called said that she cannot come to her 1 day post op today, said that she is not feeling well today and was up all night with her sister. I told her that I would let the provider know and someone would be giving her a call. [facility] 08-15-2024 Miscellaneous Notes Patient called said that she cannot come to her 1 day post op today, said that she is not feeling well today and was up all night with her sister. I told her that I would let the provider know and someone would be giving her a call. documented in this encounter [facility] 08-10-2024 Note HNO ID: [id number] Author: TELLO BRADFORD OD Service: ? Author Type: WINDOWS INFRASTRUCTURE ENGINEER Type: Progress Notes Filed: 08/10/2024 12:05 Note Text: (Z09) Examination following surgery (primary encounter diagnosis) Comment: S/P PEIOL OD aim plano 05/21/25 healed well pt happy with vision Plan: monitor advised to get +2.50 otc reader (H25.812) Combined forms of age-related cataract of left eye Comment: significant cataract OS Plan: scheduled for cataract surgery Tuesday aim plano (H35.363) Degenerative retinal drusen of both eyes Comment: stable Plan: monitor I have confirmed and edited as necessary the relevant ophthalmic history, ROS, and the neuro exam findings as obtained by others. I have seen and examined this patient. I have discussed the case and the management of this patient's care with the Resident/Fellow, if applicable. I also have reviewed and agree with the assessment and plan as stated above and agree with all of its relevant components. Tello Bradford, OD August 10, 2024 12:04 PM [facility] 08-10-2024 History of Present illness Narrative (Z09) Examination following surgery (primary encounter diagnosis) Comment: S/P PEIOL OD aim plano 05/21/25 healed well pt happy with vision Plan: monitor advised to get +2.50 otc reader (H25.812) Combined forms of age-related cataract of left eye Comment: significant cataract OS Plan: scheduled for cataract surgery Tuesday aim plano (H35.363) Degenerative retinal drusen of both eyes Comment: stable Plan: monitor I have confirmed and edited as necessary the relevant ophthalmic history, ROS, and the neuro exam findings as obtained by others. I have seen and examined this patient. I have discussed the case and the management of this patient's care with the Resident/Fellow, if applicable. I also have reviewed and agree with the assessment and plan as stated above and agree with all of its relevant components. Tello Bradford, OD August 10, 2024 12:04 PM documented in this encounter [facility] 08-10-2024 History and physical note Images from the original note were not included. HISTORY AND PHYSICAL EXAMINATION SERVICE DATE: 08/10/2024 SERVICE TIME: 10:22 AM PRIMARY CARE PHYSICIAN: Rosita Schaffer, PILLAR MAN, PILLAR MAN REASON FOR VISIT: Riana Quiles is a 79 year old female who is scheduled for Left - PHACOEMULSIFICATION CATARACT IMPLANT INTRAOCULAR LENS W/O ENDOSCOPIC CYCLOPHOTOCOAGULATION Left - OPHTHALMIC BIOMETRY BY PARTIAL COHERENCE INTERFEROMETRY W/INTRAOCULAR LENS POWER CALCULATION at the request of Dr. Tello Bradford for consultation. My final recommendation will be communicated back to the requesting physician by way of shared medical record or letter. Assessment Parkinson disease (HCC) Assessment: Controlled on sinmet +Tremors Follows with PCP Primary hypertension Assessment: Stable on medication 161/90 in office today Follows with PCP Colon cancer (HCC) Assessment: s/p colectomy No known recurrence Other hyperlipidemia Assessment: On Statin Follows with PCP ANESTHESIA FINDINGS: Intubation History: No history of difficult intubation Significant Anesthesia Considerations: none Airway History: No history of difficult airway Dietz Activity Status Index: METS: Walk indoors, such as around the house (1.75 METs) Do light work around the house, such as dusting or washing dishes (2.70 METs) Take care of self; that is eating, dressing, bathing, using the toilet (2.75 METs) Walk a block or two on level ground (2.75 METs) Do moderate work around the house, such as vacuuming, sweeping floors, or carrying in groceries (3.50 METs) Climb a flight of stairs or walk up a hill (5.50 METs) DASI Score: 18.95 Patient denies any chest pain or undue shortness of breath with the above physical activity. STOP-Bang Score: Has or is being treated for high blood pressure Patient over 50 years old Denies snoring loudly Denies feeling tired, fatigued, or sleepy during the daytime Has not been observed to stop breathing or choking/gasping during sleep BMI less than or equal to 35 kg/m^2 Does not have a large neck Non-male patient STOP-Bang Score: 2 [id number] Score: Age: >=75 Sex: female CHF history: No Hypertension history: Yes Stroke/TIA/thromboembolism history: No Vascular disease history: No Diabetes history: No [id number] Score: 4 ARISCAT Score: Age: 51-80 Preoperative SpO2: >=96% Respiratory infection in the last month: No Preoperative anemia: No Surgical incision: peripheral Duration of surgery: <2 hrs Emergency procedure: No ARISCAT Score: 3 Airway Exam: General: Normal appearance There is no height or weight on file to calculate BMI. Mallampati Score is CLASS II ULBT: Class II - Lower incisors can bite the upper lip below the ed line Neck: Normal appearance and function, Distance from hyoid to mentum during neck extension is at least 3 finger breaths Mouth: Normal tongue size and Mouth opening greater than 2 finger breaths Dentition: Intact Airway History: No abnormal airway history Planned Anesthetic: Per anesthesia choice Prepared for surgery: This patient is optimally prepared for surgery. CONSULTS: Patient does not require consults for optimization at this time. The Following Tests/Procedures Have Been Initiated: Labs not indicated per PACC protocol, EKG not indicated per PACC protocol Planned Anesthetic: Per anesthesia choice Subjective CHIEF COMPLAINT: Visual Changes HPI: 79 year old year old presents today with complaints of difficulty with vision. Found to have cataract on exam. Denies pain. No relieving factors. PAST MEDICAL HISTORY Diagnosis Date Anemia Benign breast lumps Chest pain Colon cancer (HCC) COPD (chronic obstructive pulmonary disease) (HCC) DDD (degenerative disc disease), lumbar GERD (gastroesophageal reflux disease) Heart murmur HTN (hypertension) Parkinson's disease (HCC) Thyroid nodule PAST SURGICAL HISTORY Procedure Laterality Date PAST SURGICAL HISTORY OF 1999 partial colon resection PAST SURGICAL HISTORY OF removal of breast lumps FAMILY HISTORY Problem Relation Age of Onset Hypertension Mother Alzheimer's Disease Mother Cancer Father Bone Hypertension Father Prostate Cancer Father Lung Cancer Father Hypertension Sister Cancer Sister melanoma No Ocular Disease Other Difficulty with anesthesia No Family History SOCIAL HISTORY: Social History Tobacco Use Smoking status: Never Passive exposure: Past Smokeless tobacco: Never Vaping Use Vaping status: Never Used Substance Use Topics Alcohol use: No Drug use: No Prior to Admission medications as of 08/10/24 1041 Medication Sig Last Dose Taking prednisoLONE acetate (PRED FORTE) 1 % ophthalmic suspension Use 1 Drop in the right eye as directed. Starting TOMORROW place one drop in operative eye four times a day. Patient not taking: Reported on 08/10/2024 carbidopa-levodopa (SINEMET 25-100) 25-100 mg per tablet Take 1 tablet by mouth three times a day (at 7:00 am, 11:00 am, and 3:00 pm) Cholecalciferol, Vitamin D3, 25 mcg (1,000 unit) cap Take 1,000 Units by mouth. ergocalciferol, vitamin D2, (VITAMIN D2 ORAL) Take by mouth. ferrous sulfate 325 mg (65 mg iron) tablet TAKE 1 TABLET BY MOUTH ONCE A DAY *MAY TURN STOOLS BLACK* losartan (COZAAR) 50 mg tablet Take 50 mg by mouth once daily. carvedilol (COREG) 12.5 mg tablet Take 1 tablet by mouth twice daily with meals. hydrochlorothiazide (HYDRODIURIL, ESIDRIX) 25 mg tablet Take 1 tablet by mouth once daily. No medication comments found. ALLERGIES Allergen Reactions Bee Pollen Unknown Covid Immunization Dates Current Care Gaps Covid-19 Vaccine ( season) Overdue since 02/05/2024 03/15/2023 Outside Immunization: SARS-COV-2 (COVID-19) vaccine, mRNA, spike protein, LNP, PF, 50 mcg/0.5 mL 04/03/2022 Imm Admin: COVID-19 vaccine, age 12+ yr, bivalent (MODERNA) 01/23/2022 Imm Admin: COVID-19 original vaccine, full dose, monovalent (MODERNA) 04/14/2021 Imm Admin: COVID-19 original vaccine, full dose, monovalent (MODERNA) 08/27/2020 Imm Admin: COVID-19 original vaccine, full dose, monovalent (MODERNA) Only the first 5 history entries have been loaded, but more history exists. REVIEW OF SYSTEMS: PAIN ASSESSMENT: General: No weight loss, malaise or fevers. Neuro: No history of TIA's, stroke, CAD DETAILER tumor, impaired sensorium, hemiplegia, paraplegia or quadraplegia. No neurological symptoms or problems. 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 : Denies, No LMP recorded. Patient is postmenopausal. Endocrine: No history of diabetes. Has not taken steroids within the past 30 days. No history of endocrinological symptoms or problems. Hematology: No history of bleeding or clotting disorder. Pt is not taking anti-coagulation or platelet medications. No history of hematological symptoms or problems. Oncology: +Colon CA s/p Colectomy Psych: Anxiety Musculoskeletal: Back pain Skin: Negative for lesions, rash and itching. Objective PHYSICAL EXAM: VITALS: BP 136/82 Pulse 76 Resp 16 Ht 5' 4 (1.63m) Wt 174 lb 2.6 oz (79.0kg) SpO2 97% BMI 29.88 kg/(m^2). General: Alert and oriented Skin: Normal color, no rash, no lesions. HEENT: EOM, pupils equal, round and reactive. Cardiovascular: Normal S1 & S2, no rubs, murmurs or gallops. No JVD. Pulse regular. Lungs: Normal breath sounds, no wheezes or crackles. Abdomen: Soft, non-tender, no rigidity. Extremities: No deformity, no edema or tenderness, no joint swelling or clubbing. Neurological: Normal cognition and motor skills. Pulses: Carotid and radial pulses normal +2. Diagnostic tests reviewed for today's visit: No new labs or tests Instructions Given to Patient: Instructions located in the after visit summary. Patient given verbal and written preop instructions and voices comprehension and compliance. SIGNATURE: Nataly Martin APRN.CNP PATIENT NAME: Riana Quiles DATE: 08/10/2024 TIME: 10:22 AM [facility] 08-10-2024 History and physical note Images from the original note were not included. HISTORY AND PHYSICAL EXAMINATION SERVICE DATE: 08/10/2024 SERVICE TIME: 10:22 AM PRIMARY CARE PHYSICIAN: Rosita Schaffer CNP, PILLAR MAN REASON FOR VISIT: Riana Quiles is a 79 year old female who is scheduled for Left - PHACOEMULSIFICATION CATARACT IMPLANT INTRAOCULAR LENS W/O ENDOSCOPIC CYCLOPHOTOCOAGULATION Left - OPHTHALMIC BIOMETRY BY PARTIAL COHERENCE INTERFEROMETRY W/INTRAOCULAR LENS POWER CALCULATION at the request of Dr. Tello Bradford for consultation. My final recommendation will be communicated back to the requesting physician by way of shared medical record or letter. Assessment Parkinson disease (HCC) Assessment: Controlled on sinmet +Tremors Follows with PCP Primary hypertension Assessment: Stable on medication 161/90 in office today Follows with PCP Colon cancer (HCC) Assessment: s/p colectomy No known recurrence Other hyperlipidemia Assessment: On Statin Follows with PCP ANESTHESIA FINDINGS: Intubation History: No history of difficult intubation Significant Anesthesia Considerations: none Airway History: No history of difficult airway Dietz Activity Status Index: METS: Walk indoors, such as around the house (1.75 METs) Do light work around the house, such as dusting or washing dishes (2.70 METs) Take care of self; that is eating, dressing, bathing, using the toilet (2.75 METs) Walk a block or two on level ground (2.75 METs) Do moderate work around the house, such as vacuuming, sweeping floors, or carrying in groceries (3.50 METs) Climb a flight of stairs or walk up a hill (5.50 METs) DASI Score: 18.95 Patient denies any chest pain or undue shortness of breath with the above physical activity. STOP-Bang Score: Has or is being treated for high blood pressure Patient over 50 years old Denies snoring loudly Denies feeling tired, fatigued, or sleepy during the daytime Has not been observed to stop breathing or choking/gasping during sleep BMI less than or equal to 35 kg/m^2 Does not have a large neck Non-male patient STOP-Bang Score: 2 [id number] Score: Age: >=75 Sex: female CHF history: No Hypertension history: Yes Stroke/TIA/thromboembolism history: No Vascular disease history: No Diabetes history: No [id number] Score: 4 ARISCAT Score: Age: 51-80 Preoperative SpO2: >=96% Respiratory infection in the last month: No Preoperative anemia: No Surgical incision: peripheral Duration of surgery: <2 hrs Emergency procedure: No ARISCAT Score: 3 Airway Exam: General: Normal appearance There is no height or weight on file to calculate BMI. Mallampati Score is CLASS II ULBT: Class II - Lower incisors can bite the upper lip below the ed line Neck: Normal appearance and function, Distance from hyoid to mentum during neck extension is at least 3 finger breaths Mouth: Normal tongue size and Mouth opening greater than 2 finger breaths Dentition: Intact Airway History: No abnormal airway history Planned Anesthetic: Per anesthesia choice Prepared for surgery: This patient is optimally prepared for surgery. CONSULTS: Patient does not require consults for optimization at this time. The Following Tests/Procedures Have Been Initiated: Labs not indicated per PACC protocol, EKG not indicated per [facility] protocol Planned Anesthetic: Per anesthesia choice Subjective CHIEF COMPLAINT: Visual Changes HPI: 79 year old year old presents today with complaints of difficulty with vision. Found to have cataract on exam. Denies pain. No relieving factors. PAST MEDICAL HISTORY Diagnosis Date Anemia Benign breast lumps Chest pain Colon cancer (HCC) COPD (chronic obstructive pulmonary disease) (HCC) DDD (degenerative disc disease), lumbar GERD (gastroesophageal reflux disease) Heart murmur HTN (hypertension) Parkinson's disease (HCC) Thyroid nodule PAST SURGICAL HISTORY Procedure Laterality Date PAST SURGICAL HISTORY OF 1999 partial colon resection PAST SURGICAL HISTORY OF removal of breast lumps FAMILY HISTORY Problem Relation Age of Onset Hypertension Mother Alzheimer's Disease Mother Cancer Father Bone Hypertension Father Prostate Cancer Father Lung Cancer Father Hypertension Sister Cancer Sister melanoma No Ocular Disease Other Difficulty with anesthesia No Family History SOCIAL HISTORY: Social History Tobacco Use Smoking status: Never Passive exposure: Past Smokeless tobacco: Never Vaping Use Vaping status: Never Used Substance Use Topics Alcohol use: No Drug use: No Prior to Admission medications as of 08/10/24 1041 Medication Sig Last Dose Taking prednisoLONE acetate (PRED FORTE) 1 % ophthalmic suspension Use 1 Drop in the right eye as directed. Starting TOMORROW place one drop in operative eye four times a day. Patient not taking: Reported on 08/10/2024 carbidopa-levodopa (SINEMET 25-100) 25-100 mg per tablet Take 1 tablet by mouth three times a day (at 7:00 am, 11:00 am, and 3:00 pm) Cholecalciferol, Vitamin D3, 25 mcg (1,000 unit) cap Take 1,000 Units by mouth. ergocalciferol, vitamin D2, (VITAMIN D2 ORAL) Take by mouth. ferrous sulfate 325 mg (65 mg iron) tablet TAKE 1 TABLET BY MOUTH ONCE A DAY *MAY TURN STOOLS BLACK* losartan (COZAAR) 50 mg tablet Take 50 mg by mouth once daily. carvedilol (COREG) 12.5 mg tablet Take 1 tablet by mouth twice daily with meals. hydrochlorothiazide (HYDRODIURIL, ESIDRIX) 25 mg tablet Take 1 tablet by mouth once daily. No medication comments found. ALLERGIES Allergen Reactions Bee Pollen Unknown Covid Immunization Dates Current Care Gaps Covid-19 Vaccine ( season) Overdue since 02/05/2024 03/15/2023 Outside Immunization: SARS-COV-2 (COVID-19) vaccine, mRNA, spike protein, LNP, PF, 50 mcg/0.5 mL 04/03/2022 Imm Admin: COVID-19 vaccine, age 12+ yr, bivalent (MODERNA) 01/23/2022 Imm Admin: COVID-19 original vaccine, full dose, monovalent (MODERNA) 04/14/2021 Imm Admin: COVID-19 original vaccine, full dose, monovalent (MODERNA) 08/27/2020 [facility] Admin: COVID-19 original vaccine, full dose, monovalent (MODERNA) Only the first 5 history entries have been loaded, but more history exists. REVIEW OF SYSTEMS: PAIN ASSESSMENT: General: No weight loss, malaise or fevers. Neuro: No history of TIA's, stroke, CAD DETAILER tumor, impaired sensorium, hemiplegia, paraplegia or quadraplegia. No neurological symptoms or problems. 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 : Denies, No LMP recorded. Patient is postmenopausal. Endocrine: No history of diabetes. Has not taken steroids within the past 30 days. No history of endocrinological symptoms or problems. Hematology: No history of bleeding or clotting disorder. Pt is not taking anti-coagulation or platelet medications. No history of hematological symptoms or problems. Oncology: +Colon CA s/p Colectomy Psych: Anxiety Musculoskeletal: Back pain Skin: Negative for lesions, rash and itching. Objective PHYSICAL EXAM: VITALS: BP 136/82 Pulse 76 Resp 16 Ht 5' 4 (1.63m) Wt 174 lb 2.6 oz (79.0kg) SpO2 97% BMI 29.88 kg/(m^2). General: Alert and oriented Skin: Normal color, no rash, no lesions. HEENT: EOM, pupils equal, round and reactive. Cardiovascular: Normal S1 & S2, no rubs, murmurs or gallops. No JVD. Pulse regular. Lungs: Normal breath sounds, no wheezes or crackles. Abdomen: Soft, non-tender, no rigidity. Extremities: No deformity, no edema or tenderness, no joint swelling or clubbing. Neurological: Normal cognition and motor skills. Pulses: Carotid and radial pulses normal +2. Diagnostic tests reviewed for today's visit: No new labs or tests Instructions Given to Patient: Instructions located in the after visit summary. Patient given verbal and written preop instructions and voices comprehension and compliance. SIGNATURE: Nataly Martin APRN.STEPHANIE PATIENT NAME: Riana Quiles DATE: 08/10/2024 TIME: 10:22 AM documented in this encounter [facility] 08-10-2024 Instructions Nataly Martin APRN.CNP - 08/10/2024 10:22 AM EST Images from the original note were not included. [facility] PATIENT PREOPERATIVE INSTRUCTIONS Your Surgeon has scheduled you for your procedure at this surgery center: [facility]: [phone] --[address] [address]. Please read below carefully for your personalized instructions. Dietary Restrictions: - No solid food after midnight. - You may have 12 ounces of clear liquids (water, clear juices such as apple juice or gatorade, carbonated beverages, clear tea, black coffee, jello) until 2 hours before scheduled arrival at facility. Medications: Unless instructed differently below, stay on all of your medications until your surgery. Approved medications to take the morning of surgery with a sip of water: Carbidopa-Levodopa, Losartan, Carvedilol If you start any new medications after today's visit, please contact the surgeon's office. Important Reminders: - If you are prescribed inhalers for breathing, continue using them. - Candy, mints, and tobacco products are NOT permitted the morning of surgery. - Hearing aids, dentures and glasses may be worn the morning of surgery. - NO jewelry, body piercings, makeup, hairpins or contacts are to be worn the day of surgery. If you develop symptoms such as a fever, cold, or flu, or have other changes to your health within TWO DAYS of scheduled surgery or the morning of surgery, please contact the surgery center above. Personal Belongings: -Please have photo ID and insurance cards. -If you do not have a copy of advance directives on file with us, please bring a copy with you on the day of surgery. - Leave ALL valuables and money at home or with family members. For Outpatient Procedures: - YOU MUST HAVE A RESPONSIBLE SENIOR C DEVELOPER TAKE YOU HOME. A MOLD MAKER PLASTIC MOLDS OR WHOLESALE AGRONOMIST CANNOT BE MADE A RESPONSIBLE SENIOR C DEVELOPER. - We recommend that a responsible person stays with you overnight to take care of you. - You cannot stay in a hotel alone after outpatient surgery. You will not be permitted to have your surgery, if you do not have someone to take care of you. Arrival Time for Surgery: - The Surgery Center or hospital where you are having surgery will call the afternoon before surgery (or Tuesday for Tuesday surgery) with a scheduled arrival time. - If you have not heard by 4 pm, please contact the surgery center above. Please be aware that emergency situations arise, which may delay or change your surgical time. If this happens, we will notify you as soon as possible and regret any inconvenience. If you already have an Advance Directive, please fax a copy to [phone] or email to for it to be added to your chart. If you do not have an Advance Directive, you can find the appropriate form and more information at [email or web address]. We recommend that you complete the Advance Directive form found on the website and bring it with you the day of your surgery. It can be witnessed and scanned into your chart that day. Nataly Martin APRN., CNP documented in this encounter [facility] 06-13-2024 Telephone encounter Note Called and spoke to patient. She agreed to keep post op on 06/[address] Gillette for post op on right eye (cat sx done 05/21). Left eye surgery has been rescheduled from 06/19 to 08/14 at her request. Appointment list mailed. [facility] 06-13-2024 Miscellaneous Notes Called and spoke to patient. She agreed to keep post op on 06/[address] Gillette for post op on right eye (cat sx done 05/21). Left eye surgery has been rescheduled from 06/19 to 08/14 at her request. Appointment list mailed. Patient calling, she would like to cancel her upcoming surgery and reschedule into august. Patient also is calling bc she wants to reschedule her 1 wk post op, it has already 1 time and now wants to reschedule again....its now over a month after her surgery and getting into her other post op appointments (that need to be rescheduled) and I didn't want to confuse her. I told her surgery scheduling would call to get everything rescheduled. documented in this encounter [facility] 06-12-2024 Telephone encounter Note Patient calling, she would like to cancel her upcoming surgery and reschedule into august. Patient also is calling bc she wants to reschedule her 1 wk post op, it has already 1 time and now wants to reschedule again....its now over a month after her surgery and getting into her other post op appointments (that need to be rescheduled) and I didn't want to confuse her. I told her surgery scheduling would call to get everything rescheduled. [facility] 05-22-2024 Note HNO ID: [id number] Author: JUICE GILLETTE, YOLANDA Service: ? Author Type: WINDOWS INFRASTRUCTURE ENGINEER Type: Progress Notes Filed: 05/22/2024 14:14 Note Text: (Z09) Examination following surgery (primary encounter diagnosis) Comment: S/P PCIOL OD X 1 day Aim Plno Normal PO course with improved vision Plan: Start PF four times a day for one week then reduce 1 drop per week. PO sheet given. PO precautions given Shield HS for 1 week The nature of the patient's eye disease, its relationship to systemic health, its genetic components, and its prognosis have been explained to the patient/family. The treatment options/risks/benefits have been discussed. Questions answered. I have interviewed and examined Riana Quiles. I have confirmed and edited as necessary the chief complaint, history of present illness, past medical history, medications, family history, social history, review of systems, and exam findings as obtained by others. I agree with the assessment and plan as stated above,and have discussed them in detail with the patient. Juice Gillette, OD May 22, 2024 2:14 PM [facility] 05-22-2024 History of Present illness Narrative (Z09) Examination following surgery (primary encounter diagnosis) Comment: S/P PCIOL OD X 1 day Aim Plno Normal PO course with improved vision Plan: Start PF four times a day for one week then reduce 1 drop per week. PO sheet given. PO precautions given Shield HS for 1 week The nature of the patient's eye disease, its relationship to systemic health, its genetic components, and its prognosis have been explained to the patient/family. The treatment options/risks/benefits have been discussed. Questions answered. I have interviewed and examined Riana Spannjosueanais. I have confirmed and edited as necessary the chief complaint, history of present illness, past medical history, medications, family history, social history, review of systems, and exam findings as obtained by others. I agree with the assessment and plan as stated above,and have discussed them in detail with the patient. Juice Gillette, OD May 22, 2024 2:14 PM documented in this encounter [facility] 05-11-2024 Note HNO ID: [id number] Author: DARLING RODRIGUEZ COA Service: ? Author Type: Powder Truck Driver Type: Progress Notes Filed: 05/11/2024 13:44 Note Text: CONFIRM AIM PLANO BOTH EYES. PATIENT AWARE THAT SHE WILL NEED GLASSES FOR NEAR AND INTERMEDIATE. JOSÉ MIGUEL Puckett [facility] 05-11-2024 Note Date of Procedure 05/11/2024. Powder Truck Driver Information JOSÉ MIGUEL Puckett . Notes Measurements only - see Procedure Record under Scanned Documents for signed results. [facility] 05-11-2024 History of Present illness Narrative CONFIRM AIM PLANO BOTH EYES. PATIENT AWARE THAT SHE WILL NEED GLASSES FOR NEAR AND INTERMEDIATE. JOSÉ MIGUEL Puckett documented in this encounter [facility] 05-11-2024 Instructions Nataly Martin APRN.PILLAR MAN - 05/11/2024 12:57 PM EST PATIENT PREOPERATIVE INSTRUCTIONS You Surgeon has scheduled you for your procedure at this surgery center: [facility]: [phone] --[address] [facility] [address] [address]. Please read below carefully for your personalized instructions. Dietary Restrictions: - No solid food after midnight. - You may have 12 ounces of clear liquids (water, clear juices such as apple juice or gatorade, carbonated beverages, clear tea, black coffee, jello) until 2 hours before scheduled arrival at facility. Medications: Unless instructed differently below, stay on all of your medications until your surgery. Approved medications to take the morning of surgery with a sip of water: Carbidopa-Levodopa, Losartan, Carvedilol If you start any new medications after today's visit, please contact the surgeon's office. Important Reminders: - If you are prescribed inhalers for breathing, continue using them. - Candy, mints, and tobacco products are NOT permitted the morning of surgery. - Hearing aids, dentures and glasses may be worn the morning of surgery. - NO jewelry, body piercings, makeup, hairpins or contacts are to be worn the day of surgery. If you develop symptoms such as a fever, cold, or flu, or have other changes to your health within TWO DAYS of scheduled surgery or the morning of surgery, please contact the surgery center above. Personal Belongings: -Please have photo ID and insurance cards. -If you do not have a copy of advance directives on file with us, please bring a copy with you on the day of surgery. - Leave ALL valuables and money at home or with family members. For Outpatient Procedures: - YOU MUST HAVE A RESPONSIBLE SENIOR C DEVELOPER TAKE YOU HOME. A MOLD MAKER PLASTIC MOLDS OR WHOLESALE AGRONOMIST CANNOT BE MADE A RESPONSIBLE SENIOR C DEVELOPER. - We recommend that a responsible person stays with you overnight to take care of you. - You cannot stay in a hotel alone after outpatient surgery. You will not be permitted to have your surgery, if you do not have someone to take care of you. Arrival Time for Surgery: - The Surgery Center or hospital where you are having surgery will call the afternoon before surgery (or Tuesday for Tuesday surgery) with a scheduled arrival time. - If you have not heard by 4 pm, please contact the surgery center above. Please be aware that emergency situations arise, which may delay or change your surgical time. If this happens, we will notify you as soon as possible and regret any inconvenience. If you already have an Advance Directive, please fax a copy to [phone] or email to for it to be added to your chart. If you do not have an Advance Directive, you can find the appropriate form and more information at [email or web address]. We recommend that you complete the Advance Directive form found on the website and bring it with you the day of your surgery. It can be witnessed and scanned into your chart that day. Nataly Martin APRN.STEPHANIE documented in this encounter [facility] 05-11-2024 History and physical note Images from the original note were not included. HISTORY AND PHYSICAL EXAMINATION SERVICE DATE: 05/11/2024 SERVICE TIME: 12:49 PM PRIMARY CARE PHYSICIAN: Rosita Schaffer, STEPHANIE, PILLAR MAN REASON FOR VISIT: Riana Quiles is a 79 year old female who is scheduled for Right - PHACOEMULSIFICATION CATARACT IMPLANT INTRAOCULAR LENS W/O ENDOSCOPIC CYCLOPHOTOCOAGULATION Right - OPHTHALMIC BIOMETRY BY PARTIAL COHERENCE INTERFEROMETRY W/INTRAOCULAR LENS POWER CALCULATION at the request of Dr. Elton Avalos for consultation. My final recommendation will be communicated back to the requesting physician by way of shared medical record or letter. Assessment Patient has the following medical conditions which may affect kei-operative course: Parkinson disease (HCC) Assessment: Controlled on sinmet +Tremors Follows with PCP Primary hypertension Assessment: Stable on medication 161/90 in office today Follows with PCP Bipolar affective disorder in remission (HCC) Assessment: Colon cancer (HCC) Assessment: s/p colectomy No known recurrence Other hyperlipidemia Assessment: On Statin Follows with PCP Dietz Activity Status Index: METS: Walk indoors, such as around the house (1.75 METs) Do light work around the house, such as dusting or washing dishes (2.70 METs) Take care of self; that is eating, dressing, bathing, using the toilet (2.75 METs) Walk a block or two on level ground (2.75 METs) DASI Score: 9.95 Patient denies any chest pain or undue shortness of breath with the above physical activity. STOP-Bang Score: Has or is being treated for high blood pressure Patient over 50 years old Denies snoring loudly Denies feeling tired, fatigued, or sleepy during the daytime Has not been observed to stop breathing or choking/gasping during sleep BMI less than or equal to 35 kg/m^2 Does not have a large neck Non-male patient STOP-Bang Score: 2 [id number] Score: Age: <65 Sex: female CHF history: No Hypertension history: Yes Stroke/TIA/thromboembolism history: No Vascular disease history: No Diabetes history: No [id number] Score: 2 ARISCAT Score: Age: 51-80 Preoperative SpO2: >=96% Respiratory infection in the last month: No Preoperative anemia: No Surgical incision: peripheral Duration of surgery: <2 hrs Emergency procedure: No ARISCAT Score: 3 ANESTHESIA FINDINGS: Intubation History: No history of difficult intubation Significant Anesthesia Considerations: none Airway History: No history of difficult airway Airway Exam: General: Normal appearance There is no height or weight on file to calculate BMI. Mallampati Score is CLASS III ULBT: Class I - Lower incisors can bite the upper lip above the ed line Neck: Normal appearance and function, Distance from hyoid to mentum during neck extension is at least 3 finger breaths Mouth: Normal tongue size and Mouth opening greater than 2 finger breaths Dentition: Intact Airway History: No abnormal airway history Planned Anesthetic: Per anesthesia choice Prepared for surgery: This patient is optimally prepared for surgery. CONSULTS: Patient does not require consults for optimization at this time. The Following Tests/Procedures Have Been Initiated: Labs not indicated per [facility] protocol, EKG not indicated per [facility] protocol Planned Anesthetic: Per anesthesia choice Subjective CHIEF COMPLAINT: Visual Changes HPI: 79 year old year old presents today with complaints of difficulty with vision. Found to have cataract on exam. Denies pain. No relieving factors. PAST MEDICAL HISTORY Diagnosis Date Anemia Benign breast lumps Chest pain Colon cancer (HCC) COPD (chronic obstructive pulmonary disease) (HCC) DDD (degenerative disc disease), lumbar GERD (gastroesophageal reflux disease) Heart murmur HTN (hypertension) Parkinson's disease (HCC) Thyroid nodule PAST SURGICAL HISTORY Procedure Laterality Date PAST SURGICAL HISTORY OF 1999 partial colon resection PAST SURGICAL HISTORY OF removal of breast lumps FAMILY HISTORY Problem Relation Age of Onset Hypertension Mother Alzheimer's Disease Mother Cancer Father Bone Hypertension Father Prostate Cancer Father Lung Cancer Father Hypertension Sister Cancer Sister melanoma No Ocular Disease Other Difficulty with anesthesia No Family History SOCIAL HISTORY: Social History Tobacco Use Smoking status: Never Passive exposure: Past Smokeless tobacco: Never Vaping Use Vaping status: Never Used Substance Use Topics Alcohol use: No Drug use: No Prior to Admission medications as of 05/11/24 1253 Medication Sig Last Dose Taking carbidopa-levodopa (SINEMET 25-100) 25-100 mg per tablet Take 1 tablet by mouth three times a day (at 7:00 am, 11:00 am, and 3:00 pm) Taking Yes Cholecalciferol, Vitamin D3, 25 mcg (1,000 unit) cap Take 1,000 Units by mouth. Taking Yes ergocalciferol, vitamin D2, (VITAMIN D2 ORAL) Take by mouth. Taking Yes ferrous sulfate 325 mg (65 mg iron) tablet TAKE 1 TABLET BY MOUTH ONCE A DAY *MAY TURN STOOLS BLACK* Taking Yes losartan (COZAAR) 50 mg tablet Take 50 mg by mouth once daily. Taking Yes carvedilol (COREG) 12.5 mg tablet Take 1 tablet by mouth twice daily with meals. Taking Yes hydrochlorothiazide (HYDRODIURIL, ESIDRIX) 25 mg tablet Take 1 tablet by mouth once daily. Taking Yes No medication comments found. ALLERGIES Allergen Reactions Bee Pollen Unknown Covid Immunization Dates Overdue - Covid-19 Vaccine ( season) Overdue since 02/05/2024 03/15/2023 Outside Immunization: SARS-COV-2 (COVID-19) vaccine, mRNA, spike protein, LNP, PF, 50 mcg/0.5 mL 04/03/2022 Imm Admin: COVID-19 vaccine, age 12+ yr, bivalent (MODERNA) 01/23/2022 Imm Admin: COVID-19 original vaccine, full dose, monovalent (MODERNA) 04/14/2021 Imm Admin: COVID-19 original vaccine, full dose, monovalent (MODERNA) 08/27/2020 Imm Admin: COVID-19 original vaccine, full dose, monovalent (MODERNA) Only the first 5 history entries have been loaded, but more history exists. REVIEW OF SYSTEMS: PAIN ASSESSMENT: General: No weight loss, malaise or fevers. Neuro: No history of TIA's, stroke, CAD DETAILER tumor, impaired sensorium, hemiplegia, paraplegia or quadraplegia. No neurological symptoms or problems. 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 : Denies, No LMP recorded. Patient is postmenopausal. Endocrine: No history of diabetes. Has not taken steroids within the past 30 days. No history of endocrinological symptoms or problems. Hematology: No history of bleeding or clotting disorder. Pt is not taking anti-coagulation or platelet medications. No history of hematological symptoms or problems. Oncology: +Colon CA s/p Colectomy Psych: Anxiety Musculoskeletal: Back pain Skin: Negative for lesions, rash and itching. Objective PHYSICAL EXAM: VITALS: BP 161/90 Pulse 78 Temp (Src) 98.1 (Oral) Resp 14 Ht 5' 4 (1.63m) Wt 174 lb 2.6 oz (79.0kg) SpO2 98% BMI 29.88 kg/(m^2). General: Alert and oriented Skin: Normal color, no rash, no lesions. HEENT: EOM, pupils equal, round and reactive. Cardiovascular: Normal S1 & S2, no rubs, murmurs or gallops. No JVD. Pulse regular. Lungs: Normal breath sounds, no wheezes or crackles. Abdomen: Soft, non-tender, no rigidity. Extremities: No deformity, no edema or tenderness, no joint swelling or clubbing. Neurological: Normal cognition and motor skills. Pulses: Carotid and radial pulses normal +2. Diagnostic tests reviewed for today's visit: No new labs or tests Instructions Given to Patient: Instructions located in the after visit summary. Patient given verbal and written preop instructions and voices comprehension and compliance. SIGNATURE: Nataly Martin APRN.CNP PATIENT NAME: Riana Quiles DATE: 05/11/2024 TIME: 12:49 PM [facility] 05-11-2024 History and physical note Images from the original note were not included. HISTORY AND PHYSICAL EXAMINATION SERVICE DATE: 05/11/2024 SERVICE TIME: 12:49 PM PRIMARY CARE PHYSICIAN: Rosita Schaffer CNP, STEPHANIE REASON FOR VISIT: Riana Quiles is a 79 year old female who is scheduled for Right - PHACOEMULSIFICATION CATARACT IMPLANT INTRAOCULAR LENS W/O ENDOSCOPIC CYCLOPHOTOCOAGULATION Right - OPHTHALMIC BIOMETRY BY PARTIAL COHERENCE INTERFEROMETRY W/INTRAOCULAR LENS POWER CALCULATION at the request of Dr. Elton Avalos for consultation. My final recommendation will be communicated back to the requesting physician by way of shared medical record or letter. Assessment Patient has the following medical conditions which may affect kei-operative course: Parkinson disease (HCC) Assessment: Controlled on sinmet +Tremors Follows with PCP Primary hypertension Assessment: Stable on medication 161/90 in office today Follows with PCP Bipolar affective disorder in remission (HCC) Assessment: Colon cancer (HCC) Assessment: s/p colectomy No known recurrence Other hyperlipidemia Assessment: On Statin Follows with PCP Dietz Activity Status Index: METS: Walk indoors, such as around the house (1.75 METs) Do light work around the house, such as dusting or washing dishes (2.70 METs) Take care of self; that is eating, dressing, bathing, using the toilet (2.75 METs) Walk a block or two on level ground (2.75 METs) DASI Score: 9.95 Patient denies any chest pain or undue shortness of breath with the above physical activity. STOP-Bang Score: Has or is being treated for high blood pressure Patient over 50 years old Denies snoring loudly Denies feeling tired, fatigued, or sleepy during the daytime Has not been observed to stop breathing or choking/gasping during sleep BMI less than or equal to 35 kg/m^2 Does not have a large neck Non-male patient STOP-Bang Score: 2 [id number] Score: Age: <65 Sex: female CHF history: No Hypertension history: Yes Stroke/TIA/thromboembolism history: No Vascular disease history: No Diabetes history: No [id number] Score: 2 ARISCAT Score: Age: 51-80 Preoperative SpO2: >=96% Respiratory infection in the last month: No Preoperative anemia: No Surgical incision: peripheral Duration of surgery: <2 hrs Emergency procedure: No ARISCAT Score: 3 ANESTHESIA FINDINGS: Intubation History: No history of difficult intubation Significant Anesthesia Considerations: none Airway History: No history of difficult airway Airway Exam: General: Normal appearance There is no height or weight on file to calculate BMI. Mallampati Score is CLASS III ULBT: Class I - Lower incisors can bite the upper lip above the ed line Neck: Normal appearance and function, Distance from hyoid to mentum during neck extension is at least 3 finger breaths Mouth: Normal tongue size and Mouth opening greater than 2 finger breaths Dentition: Intact Airway History: No abnormal airway history Planned Anesthetic: Per anesthesia choice Prepared for surgery: This patient is optimally prepared for surgery. CONSULTS: Patient does not require consults for optimization at this time. The Following Tests/Procedures Have Been Initiated: Labs not indicated per PACC protocol, EKG not indicated per PACC protocol Planned Anesthetic: Per anesthesia choice Subjective CHIEF COMPLAINT: Visual Changes HPI: 79 year old year old presents today with complaints of difficulty with vision. Found to have cataract on exam. Denies pain. No relieving factors. PAST MEDICAL HISTORY Diagnosis Date Anemia Benign breast lumps Chest pain Colon cancer (HCC) COPD (chronic obstructive pulmonary disease) (HCC) DDD (degenerative disc disease), lumbar GERD (gastroesophageal reflux disease) Heart murmur HTN (hypertension) Parkinson's disease (HCC) Thyroid nodule PAST SURGICAL HISTORY Procedure Laterality Date PAST SURGICAL HISTORY OF 1999 partial colon resection PAST SURGICAL HISTORY OF removal of breast lumps FAMILY HISTORY Problem Relation Age of Onset Hypertension Mother Alzheimer's Disease Mother Cancer Father Bone Hypertension Father Prostate Cancer Father Lung Cancer Father Hypertension Sister Cancer Sister melanoma No Ocular Disease Other Difficulty with anesthesia No Family History SOCIAL HISTORY: Social History Tobacco Use Smoking status: Never Passive exposure: Past Smokeless tobacco: Never Vaping Use Vaping status: Never Used Substance Use Topics Alcohol use: No Drug use: No Prior to Admission medications as of 05/11/24 1253 Medication Sig Last Dose Taking carbidopa-levodopa (SINEMET 25-100) 25-100 mg per tablet Take 1 tablet by mouth three times a day (at 7:00 am, 11:00 am, and 3:00 pm) Taking Yes Cholecalciferol, Vitamin D3, 25 mcg (1,000 unit) cap Take 1,000 Units by mouth. Taking Yes ergocalciferol, vitamin D2, (VITAMIN D2 ORAL) Take by mouth. Taking Yes ferrous sulfate 325 mg (65 mg iron) tablet TAKE 1 TABLET BY MOUTH ONCE A DAY *MAY TURN STOOLS BLACK* Taking Yes losartan (COZAAR) 50 mg tablet Take 50 mg by mouth once daily. Taking Yes carvedilol (COREG) 12.5 mg tablet Take 1 tablet by mouth twice daily with meals. Taking Yes hydrochlorothiazide (HYDRODIURIL, ESIDRIX) 25 mg tablet Take 1 tablet by mouth once daily. Taking Yes No medication comments found. ALLERGIES Allergen Reactions Bee Pollen Unknown Covid Immunization Dates Overdue - Covid-19 Vaccine () Overdue since 02/05/2024 03/15/2023 Outside Immunization: SARS-COV-2 (COVID-19) vaccine, mRNA, spike protein, LNP, PF, 50 mcg/0.5 mL 04/03/2022 Imm Admin: COVID-19 vaccine, age 12+ yr, bivalent (MODERNA) 01/23/2022 Imm Admin: COVID-19 original vaccine, full dose, monovalent (MODERNA) 04/14/2021 Imm Admin: COVID-19 original vaccine, full dose, monovalent (MODERNA) 08/27/2020 Imm Admin: COVID-19 original vaccine, full dose, monovalent (MODERNA) Only the first 5 history entries have been loaded, but more history exists. REVIEW OF SYSTEMS: PAIN ASSESSMENT: General: No weight loss, malaise or fevers. Neuro: No history of TIA's, stroke, CAD DETAILER tumor, impaired sensorium, hemiplegia, paraplegia or quadraplegia. No neurological symptoms or problems. 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 : Denies, No LMP recorded. Patient is postmenopausal. Endocrine: No history of diabetes. Has not taken steroids within the past 30 days. No history of endocrinological symptoms or problems. Hematology: No history of bleeding or clotting disorder. Pt is not taking anti-coagulation or platelet medications. No history of hematological symptoms or problems. Oncology: +Colon CA s/p Colectomy Psych: Anxiety Musculoskeletal: Back pain Skin: Negative for lesions, rash and itching. Objective PHYSICAL EXAM: VITALS: BP 161/90 Pulse 78 Temp (Src) 98.1 (Oral) Resp 14 Ht 5' 4 (1.63m) Wt 174 lb 2.6 oz (79.0kg) SpO2 98% BMI 29.88 kg/(m^2). General: Alert and oriented Skin: Normal color, no rash, no lesions. HEENT: EOM, pupils equal, round and reactive. Cardiovascular: Normal S1 & S2, no rubs, murmurs or gallops. No JVD. Pulse regular. Lungs: Normal breath sounds, no wheezes or crackles. Abdomen: Soft, non-tender, no rigidity. Extremities: No deformity, no edema or tenderness, no joint swelling or clubbing. Neurological: Normal cognition and motor skills. Pulses: Carotid and radial pulses normal +2. Diagnostic tests reviewed for today's visit: No new labs or tests Instructions Given to Patient: Instructions located in the after visit summary. Patient given verbal and written preop instructions and voices comprehension and compliance. SIGNATURE: Nataly Martin APRN.CNP PATIENT NAME: Riana Quiles DATE: 05/11/2024 TIME: 12:49 PM documented in this encounter [facility] 04-17-2024 History of Present illness Narrative Images from the original note were not included. Chief Complaint Patient presents with Tremors Parkinson's Disease Subjective Riana Quiles is a 78 y.o. female. History of Present Illness Riana is a 78-year-old female who presents today for follow up for Parkinson's disease. She was most recently evaluated in our office on 02/22/[address] Hu. She is taking Sinemet 1/2 tablet three times per day. She takes her doses around 5:00 am, 1:00 pm, and 9:00 pm daily. The patient has an intermittent tremor of the right hand. She states this can occur with rest or when walking upstairs. It has increased. She has chronic balance difficulty. She denies any falls within the past 1 year but states she has, come close. She reports intermittent numbness/tingling in the bilateral feet, more so in the evenings. She reports some muscle stiffness and slowness of movement. She states she can have difficulty standing up from a chair at times and notes reduced sense of smell. Also, has noticed some reduced dexterity in the hands. She denies drooling, swallowing difficulty, or dyskinesias. The patient believes her memory is, overall, quite good. She mentions some difficulty recalling the names of actors and actresses. She states she used to walk into a room and forget why she entered it, but this has improved. She lives at home with her sister who also has Parkinson's disease. She is independent with all ADLs and medication management. She drives and has not gotten lost. She reports only driving locally in [place], [place]. She denies agitation, hallucinations, or dream enactment behavior. She reports chronic fatigue. The patient also reports an intermittent, pounding, sensation in the bilateral ears. She is unsure when this started. She states it can be positional and occur when laying down. She denies hearing difficulty or ringing in the ears. She denies dizziness, lightheadedness, or syncope. She denies any further concerns. The patient plants to have cataract surgery in May 2024. Review of Systems Constitutional: Positive for fatigue. Negative for appetite change, chills, fever and unexpected weight change. HENT: Positive for tinnitus. Negative for drooling, hearing loss, trouble swallowing and voice change. Eyes: Negative for visual change, double vision or loss of vision Respiratory: Positive for shortness of breath (on exertion - patient attributes to COPD, follows with primary care provider). Negative for cough and wheezing. Cardiovascular: Negative for chest pain and palpitations. Gastrointestinal: Negative for abdominal pain, blood in stool, nausea and vomiting. Genitourinary: Positive for frequency. Negative for dysuria, flank pain and hematuria. Musculoskeletal: Positive for gait problem. Negative for arthralgias and myalgias. Neurological: Positive for tremors and numbness (bilateral feet). Negative for dizziness, seizures, syncope, facial asymmetry, speech difficulty, weakness, light-headedness and headaches. Positive for slowness of movement and muscle stiffness Psychiatric/Behavioral: Negative for hallucinations, self-injury and suicidal ideas. Positive for anxiety and depression Home Medication List carbidopa-levodopa 25-100 MG tablet; Commonly known as: Sinemet; TAKE 1/2 TABLET BY MOUTH 3 TIMES DAILY carvedilol 12.5 MG tablet; Commonly known as: Coreg; Take 1 tablet (12.5 mg) by mouth in the morning and 1 tablet (12.5 mg) before bedtime. cholecalciferol 25 MCG (1000 UT) capsule; Commonly known as: Vitamin D-3 ferrous sulfate 325 (65 Fe) MG tablet hydroCHLOROthiazide 12.5 MG tablet; Commonly known as: HYDRODiuril; Take 1 tablet (12.5 mg) by mouth Daily losartan 50 MG tablet; Commonly known as: Cozaar; Take 1 tablet (50 mg) by mouth Daily Past Medical History: Diagnosis Date Abnormal magnetic resonance imaging of lumbar spine Abnormal PET scan of colon Abnormal serum protein electrophoresis Abnormal thyroid biopsy Abnormality of right breast on screening mammogram Acute pain of left knee Anemia At moderate risk for fall Back pain Colon cancer (CMS/HCC) COPD (chronic obstructive pulmonary disease) (CMS/HCC) DDD (degenerative disc disease), lumbar Edema of both ankles Elevated serum glucose Fatigue, unspecified type Gastroesophageal reflux disease, unspecified whether esophagitis present History of colon cancer Hypernatremia Hypertension, essential (CMS/HCC) 09/22/20-did not take medications today. Lipoma of upper extremity, unspecified laterality Lower extremity weakness Neoplasm of uncertain behavior of colon Neoplasm of uncertain behavior of other specified sites Primary hypertension (CMS/HCC) 05/12/2023 Refused Streptococcus pneumoniae vaccination Right hip pain Seborrheic dermatitis Spondylolisthesis of lumbar region Thyroid nodule (CMS/HCC) Past Surgical History: Procedure Laterality Date BREAST LUMPECTOMY Left benign COLON SURGERY 85% colon removed Family History Problem Relation Name Age of Onset Alzheimer's disease Mother Prostate cancer Father Bone cancer Father Lung cancer Father Hypertension Sister Parkinsonism Sister Parkinsonism Other Hyperlipidemia Sibling Hypertension Sibling Social History Tobacco Use Smoking status: Never Smokeless tobacco: Not on file Substance Use Topics Alcohol use: Never Comment: caffeine intake: 2-3 cups per day Allergies: Patient has no known allergies. Vitals: 04/17/24 0952 BP: 136/82 Pulse: 82 SpO2: 98% Body mass index is 31.41 kg/m . weight: 183 lb Neurologic exam: Mental status and general appearance: Awake and alert with unlabored respirations. Oriented to person, place, and time. Recent and remote memory are primarily intact. Speech is clear and fluent without aphasia. Speech is non-dysarthric. Attention and concentration are normal. Fund of knowledge is appropriate for level of education. Cranial nerves: CN II: Visual acuity is normal. Visual ngo full to confrontation. CN III, IV, : Pupils are equal, round, and reactive to light. Extraocular movements intact. No ptosis present. CN V: Facial sensation is normal. CN VII: Full and symmetric facial movement. CN VIII: Hearing is normal to finger rub bilaterally. CN IX and X: Palate elevates symmetrically. CN XI: Shoulder shrug is normal bilaterally. CN XII: Tongue is midline without atrophy or fasciculation. Motor: RUE strength deltoid , biceps , triceps , wrist extensors , wrist flexor , and vice president strength 5/5. LUE strength deltoid , biceps , triceps , wrist extensors , wrist flexor , and vice president strength 5/5. RLE strength iliopsoas, quadriceps, tibialis anterior, plantar flexion, and dorsiflexion strength 5/5. LLE strength iliopsoas, quadriceps, tibialis anterior, plantar flexion, and dorsiflexion strength 5/5. Tone mildly to moderately increased tone in the bilateral upper extremities with activation. Intermittent, mild rest tremor of the right hand. Sensory: Sensation is intact to light touch throughout all four extremities. Sensation is intact to temperature in all extremities. Reflexes: RUE biceps reflex 1+ , brachioradialis reflex 1+. LUE biceps reflex 1+ , brachioradialis reflex 1+. RLE Knee reflex 1+. LLE Knee reflex 1+. Coordination: [id number] testing normal. Rapid alternating movements mild bradykinesia. Gait: Mildly stooped posture with reduced stride. Utilizing quad cane. No magnetic gait or freezing observed. Review and summary of old records: Assessment/Plan Diagnoses and all orders for this visit: Parkinson's disease without dyskinesia, unspecified whether manifestations fluctuate ([facility]) It is my impression that the patient has Parkinson's disease. She has had a beneficial response to dopaminergic therapy with Sinemet. She presents today with continued tremor, bradykinesia, rigidity, and gait instability. She does report taking her Sinemet doses daily at 5:00 am, 1:00 pm, and 9:00 pm which I do not believe is optimal timing. I believe the patient may benefit from a dose increase and change in her dosing schedule for improved control of motor symptoms. PLAN: - Increase Sinemet 25-100 mg tablet - I advised the patient to take 1 tablet by mouth three times a day (at 7:00 am, 11:00 am, and 3:00 pm). I counseled the patient on potential side effects. She verbalizes understanding and wishes to proceed - I strongly recommended referral to physical therapy to help improve balance/gait and reduce fall risk. The patient declines physical therapy - Fall prevention measures discussed Pulsatile tinnitus The patient reports intermittent pulsatile tinnitus in the bilateral ears; most prominent when laying down. She has a history of hypertension. I am concerned for a possible vascular disorder/etiology to her symptoms. PLAN: - Urgent MR angiogram of the head and neck to investigate for a vascular abnormality which may explain the patient's symptoms - I have educated the patient on signs and symptoms of stroke and advised the patient to call 911 or proceed directly to the emergency department if she develops any of these in the future Paresthesias The patient reports intermittent numbness and tingling in the bilateral feet in no particular dermatomal distribution. She denies sensory disturbance in the proximal lower extremities. This raises suspicion for neuropathy or possible radicular process which could also contribute to imbalance. PLAN: - EMG of the bilateral lower extremities to help delineate the etiology of the patient's foot paresthesias (polyneuropathy, radiculopathy, etc.) Chronic fatigue The patient reports chronic fatigue. She sleeps approximately 5 hours per night and naps throughout the day. She denies difficulty initiating sleep but states she wakes up approximately 3 to 4 times per night to urinate. She is unsure if she snores or has apneic episodes while asleep. It is possible that the patient's fatigue is secondary to Parkinson's disease, poor sleep, and/or depression. PLAN: - We discussed sleep hygiene and regular physical activity as tolerated - Lab work (CBC, CMP, TSH, T4, vitamin B12, and vitamin D) was ordered by the patient's primary care provider on 03/27/24. I encouraged the patient to have this completed to evaluate for other possible causes of fatigue. She verbalizes understanding Anxiety and depression (CMS/HCC) The patient reports a history of anxiety and depression which she feels are well managed. She denies suicidal or homicidal ideations. She states she previously followed with a counselor but no longer does so. PLAN: - Follow up with psychology as needed. The patient states she is always able to call her counselor to re-establish care in the future if needed Diagnosis and treatment options discussed in detail. All questions answered. The patient verbalizes understanding and is agreeable to the plan. Discussion in layman's terms. Follow up in the office within 1 month; sooner if needed for new or worsening symptoms. Mary Olivia NP [facility] Advanced Neurology documented in this encounter [facility] 04-17-2024 Instructions Mary Olivia NP - 04/17/2024 10:20 AM EST - MRA of the head and neck - EMG of the bilateral lower extremities - Increase Sinemet 25-100 mg to 1 tablet by mouth three times a day documented in this encounter [facility] 04-10-2024 Telephone encounter Note Called and LVM for patient to call [phone] to schedule surgery. Cataract: Right eye (OD) then Left eye (OS) AIM: PLANO both eyes Guarded prognosis due to Epiretinal membrane / early Age related macular degeneration No h/o refractive surgery No CL's [facility] 11-05-2024 Miscellaneous Notes Called and LVM for patient to call [phone] to schedule surgery. Cataract: Right eye (OD) then Left eye (OS) AIM: PLANO both eyes Guarded prognosis due to Epiretinal membrane / early Age related macular degeneration No h/o refractive surgery No CL's documented in this encounter [facility] 04-09-2024 Note Date of Procedure 04/09/2024. Powder Truck Driver Information Drying Equipment Operator: [email or web address]. Interval Change Right Eye Intial . Left Eye Intial . [facility] 04-09-2024 Note Date of Procedure 04/09/2024. Powder Truck Driver Information Drying Equipment Operator: [email or web address]. Interpretation Right Eye Abnormal foveal contour. Findings include Drusen, Epiretinal membrane. Left Eye Abnormal foveal contour. Findings include Drusen. Interval Change Right Eye Stable. Left Eye Stable. [facility] 04-09-2024 Note HNO ID: [id number] Author: ELTON AVALOS MD Service: ? 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 - Observe - Strict retinal detachment precautions given. Patient instructed to return YOLANDA if noticing new flashes, floaters, curtains, or shadows Cataracts both eyes -Appear visually significant and primary cause of decreased vision -Wishes to proceed with Cataract surgery both eyes Cataract Presurgical Documentation Cataract: Right eye (OD) then Left eye (OS) AIM: PLANO both eyes Guarded prognosis due to Epiretinal membrane / early Age related macular degeneration No h/o refractive surgery No CL's Current Visual Acuity Right Eye Distance SC 20/100 Left Eye Distance SC 20/50 Best Corrected Vision Right Eye 20/30 Best Corrected Vision Left Eye 20/50 Glare Testing: Right Eye High less than 20/400 Left Eye High less than 20/400 Visual Function: Riana Quiles states that the decline in vision from the cataract impedes her abilities as listed in the HPI, as well as other activities of daily living. Riana Quiles has confirmed that she is no longer able to function adequately on a day-to-day basis because of her current visual condition. Further, it is my medical opinion that the cataract is the primary cause, or at least a significantly contributory cause of her visual dysfunction. With uncomplicated cataract surgery and lens implantation, it is my expectation that her visual function and quality of life will improve, significantly. The risks, benefits, alternatives, personnel and complications of cataract surgery with lens implantation were discussed with Riana Quiles in detail. she appeared to understand and asked that I proceed with plans for surgery. 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 - Observe - Strict retinal detachment precautions given. Patient instructed to return YOLANDA if noticing new flashes, floaters, curtains, or shadows Cataracts both eyes -Appear visually significant and primary cause of decreased vision -Wishes to proceed with Cataract surgery both eyes Cataract Presurgical Documentation Cataract: Right eye (OD) then Left eye (OS) AIM: PLANO both eyes Guarded prognosis due to Epiretinal membrane / early Age related macular degeneration No h/o refractive surgery No CL's Current Visual Acuity Right Eye Distance SC 20/100 Left Eye Distance SC 20/50 Best Corrected Vision Right Eye 20/30 Best Corrected Vision Left Eye 20/50 Glare Testing: Right Eye High less than 20/400 Left Eye High less than 20/400 Visual Function: Riana Quiles states that the decline in vision from the cataract impedes her abilities as listed in the HPI, as well as other activities of daily living. Riana Quiles has confirmed that she is no longer able to function adequately on a day-to-day basis because of her current visual condition. Further, it is my medical opinion that the cataract is the primary cause, or at least a significantly contributory cause of her visual dysfunction. With uncomplicated cataract surgery and lens implantation, it is my expectation that her visual function and quality of life will improve, significantly. The risks, benefits, alternatives, personnel and complications of cataract surgery with lens implantation were discussed with Riana Quiles in detail. she appeared to understand and asked that I proceed with plans for surgery. Elton Avalos MD April 09, 2024 documented in this encounter [facility] 04-04-2024 Note HNO ID: [id number] Author: LIBAN GREER MD Service: ? 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 - Observe - Strict retinal detachment precautions given. Patient instructed to return YOLANDA if noticing new flashes, floaters, curtains, or shadows Follow Up: Dr. Avalos as scheduled for CEIOL evaluation. Retina 4 months I have confirmed and edited as necessary the relevant HPI, ophthalmic history, ROS, and exam findings as obtained by others. I have seen and examined this patient. I have discussed the case and the management of this patient's care with the Resident, if applicable. I also have reviewed and agree with the assessment and plan as stated above and agree with all of its relevant components. [facility] 04-04-2024 Note Date of Procedure 04/04/2024. Powder Truck Driver Information Drying Equipment Operator: [email or web address]. Interpretation Right Eye Findings include Drusen, Drusenoid PED, Epiretinal membrane. Left Eye Findings include Drusen, Drusenoid PED. Interval Change Right Eye Initial. Left Eye Initial. 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 - Observe - Strict retinal detachment precautions given. Patient instructed to return YOLANDA if noticing new flashes, floaters, curtains, or shadows Follow Up: Dr. Avalos as scheduled for CEIOL evaluation. Retina 4 months I have confirmed and edited as necessary the relevant HPI, ophthalmic history, ROS, and exam findings as obtained by others. I have seen and examined this patient. I have discussed the case and the management of this patient's care with the Resident, if applicable. I also have reviewed and agree with the assessment and plan as stated above and agree with all of its relevant components. [facility] History of Present illness Narrative Associated Problem(s): Other fatigue Check labs Associated Problem(s): Parkinson's disease (CMS/HCC) Suspect her sxs may be parkinson's related, and we will check labs, and then see if any abnormals, but will need to get in with neurology Associated Problem(s): Primary hypertension (CMS/HCC) Needs to restart her meds Check labs Fu in 4 weeks to see if feeling better Pt has been having some dizziness and unsteadiness- pt states she has had it for months however before she was able to lay down and feel better but recently she is still feeling the same way after laying down. Pt states she has vision problems she has been referred for cataracts and retina Pt has been experiencing nausea in the mornings Pt has been having at hotness pain in the right side- she does take tylenol that seems to help become tolerable\ Pt states her left foot has been swelling on and off, painful, and feels hot Pt is running low on vit d-3 caps however she is unsure what the correct dosage is but takes once daily Images from the original note were not included. Riana Quiles is a 78 y.o. female presents with chief complaint of Dizziness HPI: Hx of parkinsons, dx about a year ago, difficulty with fu d/t taking care of her sister who also has parkinsons. She is just feeling tired in general and her head feeling kind of space like. Does have tremors, does take sinemet for parkinsons Hypertension This is a chronic problem. The current episode started more than 1 year ago. The problem is unchanged. The problem is controlled. Associated symptoms include shortness of breath (with activity like walking to mailbox). Pertinent negatives include no chest pain, headaches, palpitations or peripheral edema. There are no associated agents to hypertension. Risk factors for coronary artery disease include obesity, sedentary lifestyle and post-menopausal state. Past treatments include beta blockers, angiotensin blockers and diuretics. The current treatment provides moderate improvement. Compliance problems: non complaint with appts. SUBJECTIVE: MEDICATIONS: Current Outpatient Medications Medication Instructions carbidopa-levodopa (Sinemet) 25-100 MG tablet TAKE 1/2 TABLET BY MOUTH 3 TIMES DAILY carvedilol (COREG) 12.5 mg, Oral, 2 times daily cholecalciferol (VITAMIN D-3) 1,000 Units, Daily ferrous sulfate 325 mg, 2 times daily before meals hydroCHLOROthiazide (HYDRODIURIL) 12.5 mg, Oral, Daily losartan (COZAAR) 50 mg, Oral, Daily ALLERGIES: No Known Allergies REVIEW OF SYMPTOMS: Review of Systems Constitutional: Positive for fatigue. Negative for appetite change, chills and fever. HENT: Negative for congestion, ear pain and sore throat. Eyes: Negative for pain, discharge, redness and visual disturbance. Respiratory: Positive for shortness of breath (with activity like walking to mailbox). Negative for cough and wheezing. Cardiovascular: Negative for chest pain, palpitations and leg swelling. Gastrointestinal: Negative for abdominal pain, blood in stool, constipation, diarrhea, nausea and vomiting. Genitourinary: Negative for difficulty urinating, dysuria and frequency. Musculoskeletal: Negative for arthralgias, back pain, joint swelling and myalgias. Skin: Negative for rash and wound. Neurological: Positive for dizziness and tremors. Negative for seizures, syncope and headaches. Psychiatric/Behavioral: Negative for behavioral problems, self-injury and suicidal ideas. The patient is not nervous/anxious. Hematological: Does not bruise/bleed easily. Endocrine: Negative for polydipsia, polyphagia and polyuria. Allergic/Immunologic: Negative for environmental allergies and food allergies. PAST MEDICAL HISTORY Past Medical History: Diagnosis Date Abnormal magnetic resonance imaging of lumbar spine Abnormal PET scan of colon Abnormal serum protein electrophoresis Abnormal thyroid biopsy Abnormality of right breast on screening mammogram Acute pain of left knee Anemia At moderate risk for fall Back pain Colon cancer (CMS/HCC) COPD (chronic obstructive pulmonary disease) (CMS/HCC) DDD (degenerative disc disease), lumbar Edema of both ankles Elevated serum glucose Fatigue, unspecified type Gastroesophageal reflux disease, unspecified whether esophagitis present History of colon cancer Hypernatremia Hypertension, essential (CMS/HCC) 09/22/20-did not take medications today. Lipoma of upper extremity, unspecified laterality Lower extremity weakness Neoplasm of uncertain behavior of colon Neoplasm of uncertain behavior of other specified sites Primary hypertension (CMS/HCC) 05/12/2023 Refused Streptococcus pneumoniae vaccination Right hip pain Seborrheic dermatitis Spondylolisthesis of lumbar region Thyroid nodule (CMS/HCC) Past Surgical History: Procedure Laterality Date BREAST LUMPECTOMY Left benign COLON SURGERY 85% colon removed family history includes Alzheimer's disease in her mother; Bone cancer in her father; Hyperlipidemia in her sibling; Hypertension in her sibling and sister; Lung cancer in her father; Parkinsonism in her sister and another family member; Prostate cancer in her father. OBJECTIVE: Visit Vitals BP (!) 140/100 (BP Location: Left arm, Patient Position: Sitting, BP Cuff Size: Adult long) Pulse 77 Temp 98.5 F (Temporal) Resp 18 Ht 5' 4 Wt 184 lb 3.2 oz SpO2 100% BMI 31.62 kg/m Smoking Status Never BSA 1.94 m Physical Exam Vitals and nursing note reviewed. Constitutional: General: She is not in acute distress. Appearance: Normal appearance. HENT: Head: Normocephalic and atraumatic. Right Ear: Tympanic membrane, ear canal and external ear normal. Left Ear: Tympanic membrane, ear canal and external ear normal. Nose: Nose normal. No congestion or rhinorrhea. Mouth/Throat: Mouth: Mucous membranes are moist. Pharynx: No oropharyngeal exudate or posterior oropharyngeal erythema. Eyes: Extraocular Movements: Extraocular movements intact. Conjunctiva/sclera: Conjunctivae normal. Pupils: Pupils are equal, round, and reactive to light. Neck: Vascular: No carotid bruit. Cardiovascular: Rate and Rhythm: Normal rate and regular rhythm. Pulses: Normal pulses. Heart sounds: Normal heart sounds. Pulmonary: Effort: Pulmonary effort is normal. Breath sounds: Normal breath sounds. Abdominal: General: Bowel sounds are normal. There is no distension. Palpations: Abdomen is soft. There is no mass. Tenderness: There is no abdominal tenderness. Musculoskeletal: General: Normal range of motion. Cervical back: Normal range of motion and neck supple. Right lower leg: No edema. Left lower leg: No edema. Lymphadenopathy: Cervical: No cervical adenopathy. Skin: General: Skin is warm and dry. Capillary Refill: Capillary refill takes 2 to 3 seconds. Findings: No rash. Neurological: General: No focal deficit present. Mental Status: She is alert and oriented to person, place, and time. Cranial Nerves: No cranial nerve deficit. Comments: Tremors noted at rest Psychiatric: Mood and Affect: Mood normal. Behavior: Behavior normal. Thought Content: Thought content normal. Judgment: Judgment normal. ASSESSMENT AND PLAN: No follow-ups on file. Problem List Items Addressed This Visit Primary hypertension (CMS/HCC) - Primary Needs to restart her meds Check labs Fu in 4 weeks to see if feeling better Relevant Medications losartan (Cozaar) 50 MG tablet hydroCHLOROthiazide (HYDRODiuril) 12.5 MG tablet carvedilol (Coreg) 12.5 MG tablet Iron deficiency anemia Relevant Orders CBC and differential Iron + transferrin + TIBC Vitamin B12 Thyroid nodule (CMS/HCC) Relevant Orders TSH T4, free Other fatigue Check labs Relevant Orders Vitamin B12 Urinalysis with reflex microscopic (clean catch) Vitamin D deficiency Relevant Orders Vitamin D 25 hydroxy Comprehensive metabolic panel Tremor Relevant Orders TSH T4, free Parkinson's disease (CMS/HCC) Suspect her sxs may be parkinson's related, and we will check labs, and then see if any abnormals, but will need to get in with neurology Needs flu shot Relevant Orders Flu vaccine, trivalent, adjuvanted, PF ([id number]) (Fluad trivalent single dose syringe) documented in this encounter [facility] 03-10-2022 Note OPERATIVE NOTE OPERATION DATE: 03/10/2022 [...] forceps polypectomy for sigmoid polyp. SURGEON: Tello Delgado M.D. ANESTHESIA: Monitored anesthesia care. ESTIMATED BLOOD [...] good condition. CC: Rosita Schaffer CNP [facility] 02-16-2022 Note Chief Complaint consultation for [...] Tobacco Use:., 02/04 (more content not included)... [facility] Comment on above: Result Comment: Elec tronically Signed By: DANNY HINDS, Tello Kwon\Date and Time Signed: 02/16/22 14:37 EDT 01-25-2022 Instructions Joey Cook MD - 01/25/2022 3:34 PM EDT 1. Need path and surgery records from colon cancer prior to 2006 - [facility] 2. Labs drawn today 3. RTC in 9 days to discuss 4. Keep appointment for thyroid nodule biopsy documented in this encounter [facility] 01-25-[facility]22 History of Present illness Narrative Images from the original note were not included. NAME: Riana Quiles NO.: [id number] DATE OF SERVICE: January 25, 2022 Referring Provider: Rosita Schaffer, STEPHANIE Consultation requested by Rosita Schaffer for an opinion regarding Ms. Riana Quiles, and my final recommendations will be communicated back to the requesting physician by way of shared medical record or letter via [place] mail. Additional Clinicians involved in Riana Quiles's care: Tello Delgado DIAGNOSIS: PET positive for: Uptake, IgM kappa [...] with but also will need records from [facility] with respect to both pathology and surgery. She is also scheduled to have a thyroid nodule biopsied. 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 PLAN: 1. Need path and surgery records from colon cancer prior to 2006 - [facility] 2. Labs drawn today 3. RTC in [...] chemotherapy Initial Visit, January 25, 2022: Riana Quiles presents today Hematology and Oncology evaluation. She [...] gammopathy. She is scheduled to see Dr. Delgado for colonoscopy very soon. We will repeat [...] which included preparing to see the patient, [id number] patient care, completing clinical documentation, obtaining and/or reviewing separately obtained history, performing a medically appropriate examination, counseling and educating the patient/family/caregiver, ordering medications, tests, or procedures, communicating with other HCPs (not separately reported), and independently interpreting results (not separately reported). Joey Cook MD, CPE Hematology and Oncology Services Provided at: [place], [place] CC: ROSITA WOO [address] [facility] [address] Kaelyn Holt MD [address] [facility] [facility] [id number] documented in this encounter [facility] 01-25-2022 Nurse Note Patient had a Covid booster Tuesday and her Left arm (at injections site) is red with a port gamble around it, she wonders if it is an allergic reaction? 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 Monoclonal paraproteinemia Malignant neoplasm of colon, unspecified part of colon (HCC) [facility] Diagnosis Primary hypertension (CMS/HCC)- Primary Unspecified essential hypertension Needs flu shot Need for prophylactic vaccination and inoculation against influenza Vitamin D deficiency Iron deficiency anemia, unspecified iron deficiency anemia type Other fatigue Tremor Abnormal involuntary movements Thyroid nodule (CMS/HCC) Nontoxic uninodular goiter Parkinson's disease without dyskinesia, unspecified whether manifestations fluctuate (CMS/HCC) documented in [facility] encounter [facility]* Diagnosis Degenerative retinal drusen of both eyes- Primary Drusen (degenerative) of retina [facility] Diagnosis Degenerative retinal drusen of both eyes- Primary Drusen (degenerative) of retina Combined forms of age-related cataract of both eyes Other and combined forms of senile cataract [facility] Diagnosis Primary hypertension (CMS/HCC)- Primary Unspecified essential hypertension Needs flu shot Need for prophylactic vaccination and inoculation against influenza Vitamin D deficiency Iron deficiency anemia, unspecified iron deficiency anemia type Other fatigue Tremor Abnormal involuntary movements Thyroid nodule (CMS/HCC) Nontoxic uninodular goiter Parkinson's disease without dyskinesia, unspecified whether manifestations fluctuate (CMS/HCC) Parkinson's disease without dyskinesia, unspecified whether manifestations fluctuate (CMS/HCC)- Primary Pulsatile tinnitus Paresthesias Disturbance of skin sensation Chronic fatigue Other malaise and fatigue Anxiety and depression (CMS/HCC) documented in this encounter [facility]* Diagnosis Pre-op evaluation- Primary Preoperative examination, unspecified Parkinson's disease, unspecified whether dyskinesia present, unspecified whether manifestations fluctuate (HCC) Primary hypertension Unspecified essential hypertension Bipolar affective disorder in remission (HCC) Malignant neoplasm of colon, unspecified part of colon (HCC) Other hyperlipidemia Combined forms of age-related cataract of both eyes Other and combined forms of senile cataract Combined forms of age-related cataract of both eyes Other and combined forms of senile cataract * Assessment & Plan Note - Nataly Martin APRN.CNP - 05/11/2024 1:19 PM EST Associated Problem(s): Other hyperlipidemia Assessment: On Statin Follows with PCP * Assessment & Plan Note - Nataly Martin APRN.CNP - 05/11/2024 1:14 PM EST Associated Problem(s): Colon cancer (HCC) Assessment: s/p colectomy No known recurrence * Assessment & Plan Note - Nataly Martin APRN.CNP - 05/11/2024 1:13 PM EST Associated Problem(s): Bipolar affective disorder in remission (HCC) (Resolved 05/11/2024) Assessment: * Assessment & Plan Note - Nataly Martin APRN.CNP - 05/11/2024 1:11 PM EST Associated Problem(s): Primary hypertension Assessment: Stable on medication 161/90 in office today Follows with PCP * Assessment & Plan Note - Nataly Mratin APRN.CNP - 05/11/2024 1:10 PM EST Associated Problem(s): Parkinson disease (HCC) Assessment: Controlled on sinmet +Tremors Follows with PCP [facility] Diagnosis Pre-op evaluation- Primary Preoperative examination, unspecified Parkinson's disease, unspecified whether dyskinesia present, unspecified whether manifestations fluctuate (HCC) Primary hypertension Unspecified essential hypertension Bipolar affective disorder in remission (HCC) Malignant neoplasm of colon, unspecified part of colon (HCC) Other hyperlipidemia Combined forms of age-related cataract of both eyes- Primary Other and combined forms of senile cataract Combined forms of age-related cataract of both eyes Other and combined forms of senile cataract Combined forms of age-related cataract of both eyes Other and combined forms of senile cataract [facility] Diagnosis Primary hypertension (CMS/HCC)- Primary Unspecified essential hypertension Needs flu shot Need for prophylactic vaccination and inoculation against influenza Vitamin D deficiency Iron deficiency anemia, unspecified iron deficiency anemia type Other fatigue Tremor Abnormal involuntary movements Thyroid nodule (CMS/HCC) Nontoxic uninodular goiter Parkinson's disease without dyskinesia, unspecified whether manifestations fluctuate (CMS/HCC) Iron deficiency anemia, unspecified documented in this encounter [facility] note* Diagnosis Pre-op evaluation- Primary Preoperative examination, unspecified Parkinson's disease, unspecified whether dyskinesia present, unspecified whether manifestations fluctuate (HCC) Primary hypertension Unspecified essential hypertension Bipolar affective disorder in remission (HCC) Malignant neoplasm of colon, unspecified part of colon (HCC) Other hyperlipidemia Examination following surgery- Primary Follow-up examination, following unspecified surgery Combined forms of age-related cataract of both eyes Other and combined forms of senile cataract documented in this encounter [facility] note* Diagnosis Pre-op evaluation- Primary Preoperative examination, unspecified Parkinson's disease, unspecified whether dyskinesia present, unspecified whether manifestations fluctuate (HCC) Primary hypertension Unspecified essential hypertension Bipolar affective disorder in remission (HCC) Malignant neoplasm of colon, unspecified part of colon (HCC) Other hyperlipidemia Pre-op evaluation- Primary Preoperative examination, unspecified Parkinson's disease, unspecified whether dyskinesia present, unspecified whether manifestations fluctuate (HCC) Other hyperlipidemia Primary hypertension Unspecified essential hypertension Malignant neoplasm of colon, unspecified part of colon (HCC) Combined forms of age-related cataract of both eyes Other and combined forms of senile cataract documented in this encounter [facility] note* Diagnosis Pre-op evaluation- Primary Preoperative examination, unspecified Parkinson's disease, unspecified whether dyskinesia present, unspecified whether manifestations fluctuate (HCC) Primary hypertension Unspecified essential hypertension Bipolar affective disorder in remission (HCC) Malignant neoplasm of colon, unspecified part of colon (HCC) Other hyperlipidemia Examination following surgery- Primary Follow-up examination, following unspecified surgery Combined forms of age-related cataract of left eye Other and combined forms of senile cataract Degenerative retinal drusen of both eyes Drusen (degenerative) of retina Combined forms of age-related cataract of both eyes Other and combined forms of senile cataract documented in this encounter [facility] note* Diagnosis Pre-op evaluation- Primary Preoperative examination, unspecified Parkinson's disease, unspecified whether dyskinesia present, unspecified whether manifestations fluctuate (HCC) Primary hypertension Unspecified essential hypertension Bipolar affective disorder in remission (HCC) Malignant neoplasm of colon, unspecified part of colon (HCC) Other hyperlipidemia Examination following surgery- Primary Follow-up examination, following unspecified surgery [facility] Diagnosis Primary hypertension (CMS/HCC)- Primary Unspecified essential hypertension Needs flu shot Need for prophylactic vaccination and inoculation against influenza Vitamin D deficiency Iron deficiency anemia, unspecified iron deficiency anemia type Other fatigue Tremor Abnormal involuntary movements Thyroid nodule (CMS/HCC) Nontoxic uninodular goiter Parkinson's disease without dyskinesia, unspecified whether manifestations fluctuate (CMS/HCC) Pain due to onychomycosis of toenails of both feet- Primary Venous insufficiency Unspecified venous (peripheral) insufficiency documented in this encounter [facility]* Diagnosis Primary hypertension (CMS/HCC)- Primary Unspecified essential hypertension Needs flu shot Need for prophylactic vaccination and inoculation against influenza Vitamin D deficiency Iron deficiency anemia, unspecified iron deficiency anemia type Other fatigue Tremor Abnormal involuntary movements Thyroid nodule (CMS/HCC) Nontoxic uninodular goiter Parkinson's disease without dyskinesia, unspecified whether manifestations fluctuate (CMS/HCC) Primary hypertension (CMS/HCC) Unspecified essential hypertension documented in this encounter [facility]* Diagnosis Primary hypertension- Primary Unspecified essential hypertension Needs flu shot Need for prophylactic vaccination and inoculation against influenza Vitamin D deficiency Iron deficiency anemia, unspecified iron deficiency anemia type Other fatigue Tremor Abnormal involuntary movements Thyroid nodule Nontoxic uninodular goiter Parkinson's disease without dyskinesia, unspecified whether manifestations fluctuate (HCC) Primary hypertension Unspecified essential hypertension Pain due to onychomycosis of toenails of both feet- Primary Venous insufficiency Unspecified venous (peripheral) insufficiency documented in this encounter [facility]* Diagnosis Primary hypertension- Primary Unspecified essential hypertension Needs flu shot Need for prophylactic vaccination and inoculation against influenza Vitamin D deficiency Iron deficiency anemia, unspecified iron deficiency anemia type Other fatigue Tremor Abnormal involuntary movements Thyroid nodule Nontoxic uninodular goiter Parkinson's disease without dyskinesia, unspecified whether manifestations fluctuate (HCC) Primary hypertension Unspecified essential hypertension documented in this encounter [facility] Discharge instructions No data available for this section General [facility] [place] note No data available for this section General Surgery [place] Summary Purpose Family History No Family History Records FoundNo Family History Records FoundNo Family History Records FoundNo Family History Records FoundNo Family History Records Found Advance Directives No Advanced Directives Records FoundNo Advanced Directives Records FoundNo Advanced Directives Records FoundNo Advanced Directives Records FoundNo Advanced Directives Records Found Additional Source Comments INFORMATION SOURCE (unrecogn ized section and content) DATE CREATED AUTHOR 01/05/2022 [facility] DATE CREATED AUTHOR AUTHOR'S ORGANIZ ATION 03/28/2022 [facility] DATE CREATED AUTHOR AUTHOR'S ORGANIZ ATION 04/19/2022 Suarez Jessamine [facility] DATE CREATED AUTHOR AUTHOR'S ORGANIZ ATION 08/20/2024 [facility] DATE CREATED AUTHOR AUTHOR'S ORGANIZ ATION 09/28/2024 [facility] EPIC Source Comments (unrecognize d section and content) In the event this informatio n is protected by the Federal Confidentiality of Alcohol and Drug Abuse Patient Records regulations: The Federal rules restrict any use of the information to criminally investigate or prosecute any alcohol or drug abuse patient.[facility] the event this information is protected by the Federal Confidentiality of Alcohol and Drug Abuse Patient Records regulations: The Federal rules restrict any use of the information to criminally investigate or prosecute any alcohol or drug abuse patient.[facility] the event this information is protected by the Federal Confidentiality of Alcohol and Drug Abuse Patient Records regulations: The Federal rules restrict any use of the information to criminally investigate or prosecute any alcohol or drug abuse patient.[facility] the event this information is protected by the Federal Confidentiality of Alcohol and Drug Abuse Patient Records regulations: The Federal rules restrict any use of the information to criminally investigate or prosecute any alcohol or drug abuse patient.[facility] HospitalIn the event this information is protected by the Federal Confidentiality of Alcohol and Drug Abuse Patient Records regulations: The Federal rules restrict any use of the information to criminally investigate or prosecute any alcohol or drug abuse patient.[facility] HospitalIn the event this information is protected by the Federal Confidentiality of Alcohol and Drug Abuse Patient Records regulations: The Federal rules restrict any use of the information to criminally investigate or prosecute any alcohol or drug abuse patient.[facility] HospitalIn the event this information is protected by the Federal Confidentiality of Alcohol and Drug Abuse Patient Records regulations: The Federal rules restrict any use of the information to criminally investigate or prosecute any alcohol or drug abuse patient.[facility] HospitalIn the event this information is protected by the Federal Confidentiality of Alcohol and Drug Abuse Patient Records regulations: The Federal rules restrict any use of the information to criminally investigate or prosecute any alcohol or drug abuse patient.[facility] HospitalIn the event this information is protected by the Federal Confidentiality of Alcohol and Drug Abuse Patient Records regulations: The Federal rules restrict any use of the information to criminally investigate or prosecute any alcohol or drug abuse patient.[facility] HospitalIn the event this information is protected by the Federal Confidentiality of Alcohol and Drug Abuse Patient Records regulations: The Federal rules restrict any use of the information to criminally investigate or prosecute any alcohol or drug abuse patient.[facility] HospitalIn the event this information is protected by the Federal Confidentiality of Alcohol and Drug Abuse Patient Records regulations: The Federal rules restrict any use of the information to criminally investigate or prosecute any alcohol or drug abuse patient.[facility] HospitalIn the event this information is protected by the Federal Confidentiality of Alcohol and Drug Abuse Patient Records regulations: The Federal rules restrict any use of the information to criminally investigate or prosecute any alcohol or drug abuse patient.[facility] HospitalIn the event this information is protected by the Federal Confidentiality of Alcohol and Drug Abuse Patient Records regulations: The Federal rules restrict any use of the information to criminally investigate or prosecute any alcohol or drug abuse patient.[facility] Care Teams (unrecognized sec tion and content) Windows Administrator Relationship Specialty Start Date End Date Kaelyn Holt MD [address] [place] [address] PCP - General Family Practice 09/27/13 Windows Administrator Relationship Specialty Start Date End Date Kaelyn Holt MD [address] [place] [address] PCP - General Family Practice 09/27/13 Windows Administrator Relationship Specialty Start Date End Date Unallocated, Megan Sanchez MD [address] [place] [address] PCP - General Family Medicine 03/21/24 Rosita Schaffer, INÉS [address] [place] [phone] Referring Physician Nurse Practitioner 12/28/22 Windows Administrator Relationship Specialty Start Date End Date Unallocated, Megan Sanchez MD [address] [place] [address] PCP - General Family Medicine 03/21/24 Rosita Schaffer, INÉS [address] [place] [phone] Referring Physician Nurse Practitioner 12/28/22 Windows Administrator Relationship Specialty Start Date End Date Kaelyn Holt MD [address] [place] [address] PCP - General Family Medicine 09/27/13 Windows Administrator Relationship Specialty Start Date End Date Kaelyn Holt MD [address] [place] [address] PCP - General Family Medicine 09/27/13 Windows Administrator Relationship Specialty Start Date End Date Kaelyn Holt MD [address] [place] [address] PCP - General Family Medicine 09/27/13 Windows Administrator Relationship Specialty Start Date End Date Renato Friedman MD [address] [place] [phone] PCP - General Family Medicine 04/05/24 Rosita Schaffer NP [address] [place] [phone] Referring Physician Nurse Practitioner 12/28/22 Rusty Hu DO [address] [phone] Referring Physician Neurology 04/09/24 Mary Olivia NP [address] [phone] Nurse Practitioner Neurology 04/09/24 Windows Administrator Relationship Specialty Start Date End Date Renato Friedman MD [address] [place] [phone] PCP - General Family Medicine 04/05/24 Rosita Schaffer NP [address] [place] [phone] Referring Physician Nurse Practitioner 12/28/22 Rusty Hu DO [address] [phone] Referring Physician Neurology 04/09/24 Mary Olivia NP [address] [phone] Nurse Practitioner Neurology 04/09/24 Windows Administrator Relationship Specialty Start Date End Date Rosita Schaffer, PILLAR MAN [address] [place] [address] PCP - General Family Medicine 05/11/24 Windows Administrator Relationship Specialty Start Date End Date Rosita Schaffer, PILLAR MAN [address] [place] [address] PCP - General Family Medicine 05/11/24 Windows Administrator Relationship Specialty Start Date End Date Renato Friedman MD [address] [place] [address] PCP - General Family Medicine 04/05/24 Rosita Schaffer, INÉS [address] [place] [address] Referring Physician Nurse Practitioner 12/28/22 Rusty Hu DO [address] [place] [address] [phone] Referring Physician Neurology 04/09/24 Mary Olivia NP [address] [place] [phone] Nurse Practitioner Neurology 04/09/24 Windows Administrator Relationship Specialty Start Date End Date Rosita Schaffer, PILLAR MAN [address] [place] [address] PCP - General Family Medicine 05/11/24 Windows Administrator Relationship Specialty Start Date End Date Rosita Schaffer, PILLAR MAN [address] [place] [address] PCP - General Family Medicine 05/11/24 Windows Administrator Relationship Specialty Start Date End Date Rosita Schaffer, PILLAR MAN [address] [place] [address] PCP - General Family Medicine 05/11/24 Windows Administrator Relationship Specialty Start Date End Date Rosita Schaffer, PILLAR MAN [address] [place] [address] PCP - General Family Medicine 05/11/24 Windows Administrator Relationship Specialty Start Date End Date Rosita Schaffer PILLAR MAN [address] [place] [address] PCP - General Family Medicine 05/11/24 Windows Administrator Relationship Specialty Start Date End Date Renato Friedman MD [address] [place] [phone] PCP - General Family Medicine 04/05/24 Rosita Schaffer NP [address] [place] [phone] Referring Physician Nurse Practitioner 12/28/22 Rusty Hu DO [address] [address] Referring Physician Neurology 04/09/24 Mary Olivia NP [address] [phone] Nurse Practitioner Neurology 04/09/24 Windows Administrator Relationship Specialty Start Date End Date Renato Friedman MD [address] [place] [phone] PCP - General Family Medicine 04/05/24 Rosita Schaffer NP [address] [place] [phone] Referring Physician Nurse Practitioner 12/28/22 Rusty Hu DO [address] [phone] Referring Physician Neurology 04/09/24 Mary Olivia NP [address] [phone] Nurse Practitioner Neurology 04/09/24 Windows Administrator Relationship Specialty Start Date End Date Renato Friedman MD [address] [place] [phone] PCP - General Family Medicine 04/05/24 Rosita Schaffer NP [address] [place] [phone] Referring Physician Nurse Practitioner 12/28/22 Rusty Hu DO [address] [phone] Referring Physician Neurology 04/09/24 Mary Olivia NP [address] [place] [phone] Nurse Practitioner Neurology 04/09/24 Windows Administrator Relationship Specialty Start Date End Date Renato Friedman MD [address] [place] [phone] PCP - General Family Medicine 04/05/24 Rosita Schaffer NP [address] [place] [phone] Referring Physician Nurse Practitioner 12/28/22 Rusty Hu DO [address] [place] [phone] Referring Physician Neurology 04/09/24 Mary Olivia NP [address] [phone] Nurse Practitioner Neurology 04/09/24 Windows Administrator Relationship Specialty Start Date End Date Renato Friedman MD [address] [place] [address] PCP - General Family Medicine 04/05/24 Rosita Schaffer NP [address] [place] [address] Referring Physician Nurse Practitioner 12/28/22 Rusty Hu DO [address] [place] [phone] Referring Physician Neurology 04/09/24 Mary Olivia NP [address] [address] Nurse Practitioner Neurology 04/09/24 Reason for Visit (unrecogniz ed section and content) Reason Comments Abnormal Protein electrophoresis New pat ient consult Reason Comments Dizziness Reason Comments Drusen Evaluation Reason Comments Cataract Evaluation Reason Comments Schedule Surgery Reason Comments Parkinson's Disease Reason Comments Anesthesia Consult Reason Comments Pre-Op Exam Reason Comments Med Refill Reason Comments Post-op (Ophthalmology) Right Eye Reason Comments Patient Update Reason Comments Pseudophakia Reason Comments Toenail Care Non dm nail care FOR RECORDS PERTAINING TO PATIENTS WHO ARE [...] BE BASED ON THE PRIMARY CLINICAL RECORDS. [employer] [facility]. provides no warranty or guarantee of the accuracy or completeness of information in this document.
[2025-02-05 16:09] LABS: Glucose Urine UA NEGATIVE (NEGATIVE)
[2025-02-05 16:21] LABS: Cast Seen? NONE SEEN #/LPF (NONE SEEN); Crystals Seen? None Seen #/HPF (None Seen); Urine Culture Indicated YES-FRMC
[2025-02-05 16:27] LABS: Alanine Aminotransferase 12 U/L (14-59); Albumin Globulin Ratio 0.9; Albumin Level 3.2 g/dL (3.4-5.0); Alkaline Phosphatase 73 U/L (46-116); Anion Gap 9.4; Aspartate Amino Transferase 13 U/L (15-37); Blood Urea Nitrogen 22.0 mg/dL (7.0-18.0); Calcium 8.3 mg/dL (8.5-10.1); Carbon Dioxide 28.2 mmol/L (21.0-32.0); Chloride 108 mmol/L (98-107); Estimated GFR (African America >60 (>=60 mL/min/1.73m^2); Estimated GFR (Non-African Ame >60 (>=60 mL/min/1.73m^2); Globulin 3.7 g/dL; Glucose 134 mg/dL (74-106); Magnesium 1.9 mg/dL (1.8-2.4); NT Pro B Type Natriuretic Pept 331.0 pg/mL (<=1800.0); Potassium 3.6 mmol/L (3.5-5.1); Sodium 142 mmol/L (136-145); Total Protein 6.9 g/dL (6.4-8.2)
--- NOTE | 2025-02-05 16:58 | XR_ITS ---
The [place] [id number] Patient Name: RIANA QUILES MRN: [id number] date: 1945 Sex: F Assigned Patient Location: ED.MAIN Current Patient Location: ED.MAIN Accession/Order Number: [id number] Exam Date: 02/05/2025 16:50 Report Date: 02/05/2025 17:45 At the request of: BEST DUMONT Procedure: XR chest 1V Plain film chest Single view HISTORY: Dizziness. Weakness. COMPARISON: 01/25/2024 FINDINGS: SUPPORT DEVICES: None POSTSURGICAL CHANGES: None HEART: Within normal limits PULMONARY BARB: Within normal limits MEDIASTINUM: Unremarkable LUNGS AND PLEURA: No acute lung process, pleural effusion or pneumothorax identified. BONY STRUCTURES: Intact ADDITIONAL FINDINGS None XR/XR chest 1V IMPRESSION: No acute process. Impression dictated by: Blake Hickey M.D. 02/05/2025 5:45 PM Dictation Location: [facility] Electronically authenticated by: [id number] Y Date: 02/05/2025 17:45
--- NOTE | 2025-02-05 16:58 | CT_ITS ---
The [address] [address] Patient Name: RIANA QUILES MRN: [id number] date: 1945 Sex: F Assigned Patient Location: ED.MAIN Current Patient Location: ED.MAIN Accession/Order Number: [id number] Exam Date: 02/05/2025 16:50 Report Date: 02/05/2025 17:41 At the request of: BEST DUMONT Procedure: CT head/brain wo con Unenhanced head CT TECHNIQUE: Contiguous axial imaging of the head. The CT exam was performed using one or more the following dose reduction techniques: Automated exposure control, adjustment of the MA and/or Kv according to patient size, or use of the iterative reconstruction technique. COMPARISON: 02/25/2024 HISTORY: Dizziness. Weakness. VENTRICLES: Within normal limits ATROPHY: Similar mild atrophy BRAIN PARENCHYMA: Adequate moore-white matter differentiation identified. HEMORRHAGE: None HERNIATION: No mass effect or herniation INFARCTION: No recent vascular distribution infarction is seen. EXTRA-AXIAL FLUID COLLECTIONS None MIDBRAIN: Unremarkable TRENTON: Unremarkable MEDULLA: Unremarkable SINUSES: Unremarkable ORBITS: Grossly unremarkable MASTOIDS: Unremarkable BONY STRUCTURES Intact ADDITIONAL FINDINGS: CT/CT head/brain wo con IMPRESSION: No acute findings. Impression dictated by: Blake Hickey M.D. 02/05/2025 5:41 PM Dictation [facility] Electronically authenticated by: [id number] Y Date: 02/05/2025 17:41
== END 2025-02-05 18:14 | disposition home or self-care (01) ==
PROVIDERS: Nurse Practitioner Family; Emergency Provider Student in an Organized Health Care Education/Training Program; PCP Nurse Practitioner
DX: N39.0 Urinary tract infection, site not specified (principal); R42 Dizziness and giddiness; R06.02 Shortness of breath; G20.A1 Parkinson's disease without dyskinesia, without mention of fluctuations; J44.9 Chronic obstructive pulmonary disease, unspecified; Z85.038 Personal history of other malignant neoplasm of large intestine; Z90.49 Acquired absence of other specified parts of digestive tract
CPT/HCPCS: 36415; 70450; 71045; 80053; 81001; 83735; 83880; 84484; 85025; 87086; 93005; 96365; 99285; J0696